=== PATIENT | female | born 1960 | race Hispanic/Latino ===

== ENCOUNTER 2017-07-21 20:35 | Emergency (ER) | payer SELFPAY ==
[2017-07-21] MEDS ORDERED: Morphine 2 MG/ML SYRINGE ONE (21:29)
--- NOTE | 2017-07-21 21:46 | RAD ---
THREE VIEWS RIGHT WRIST: History: Fall with right wrist pain. FINDINGS: AP, lateral, and oblique views demonstrate an area of radiolucency involving the distal right radius . This is compatible with a Collie's type fracture. No significant angulation is seen. There also ap pears to be an ulnar styloid fracture. IMPRESSION: Distal right radial and ulnar fractures. POS: [facility]
== END 2017-07-21 22:50 | disposition home or self-care (01) ==
LOC: ERS 20:35
DX: S52.531A Colles' fracture of right radius, initial encounter for closed fracture (principal); S52.601A Unspecified fracture of lower end of right ulna, initial encounter for closed fracture; E11.9 Type 2 diabetes mellitus without complications; I10 Essential (primary) hypertension; F41.9 Anxiety disorder, unspecified; F32.9 Major depressive disorder, single episode, unspecified; Z79.4 Long term (current) use of insulin; Z79.899 Other long term (current) drug therapy; W01.0XXA Fall on same level from slipping, tripping and stumbling without subsequent striking against object, initial encounter
CPT/HCPCS: 96372; J2270

== ENCOUNTER 2017-09-17 08:44 | Inpatient (IN) | payer SELFPAY ==
[2017-09-17 09:24] LABS: #Eosinphils 0.1 thou/uL (0.0-0.7); #Lymphocytes 1.5 thou/uL (1.20-3.40); #Monocytes 1.2 thou/uL (0.11-0.59); #Neutrophils 15.2 thou/uL (1.40-6.50); %Basophils 0.3 % (0.0-1.0); %Eosinophils 0.5 % (0.0-10.0); %Lymphocytes 8.2 % (21.0-51.0); %Monocytes 6.8 % (0.0-10.0); Hematocrit 38.5 % (36.0-47.0); Red Blood Cell (RBC) Count 4.11 mill/uL (4.20-5.40); White Blood Cell (WBC) Count 18.1 thou/uL (4.8-10.8)
[2017-09-17 09:38] LABS: ALT (SGPT) 8 U/L (8-55); AST (SGOT) 10 U/L (5-34); Alkaline Phosphatase 150 U/L (40-150); Anion Gap 20 mmol/L (10-20); BUN (Urea Nitrogen) 24 mg/dL (9.8-20.1); Band 15 % (5-11); Bilirubin, Total 0.6 mg/dL (0.2-1.2); Calc. Creatinine Clearance 0 mL/min (70-130); Calcium 9.1 mg/dL (7.8-10.44); Carbon Dioxide 17 mmol/L (22-29); Chloride 98 mmol/L (98-107); Estimated GFR-MDRD 68; Globulin 3.7 g/dL (2.4-3.5); Lipase Less than 4 U/L (8-78); Magnesium 2.5 mg/dL (1.6-2.6); Phosphorus 2.9 mg/dL (2.3-4.7); Reactive Lymphocytes 1 % (0-10)
[2017-09-17] MEDS ORDERED: Ondansetron HCl/PF 4 MG/2 ML Vial ONE ×2 (09:42→13:00)
[2017-09-17 10:02] LABS: Troponin I Less than 0.010 ng/mL (< 0.028)
[2017-09-17] MEDS ORDERED: Ketorolac Tromethamine 30 MG/ML VIAL ONE (11:35)
[2017-09-17 11:48] LABS: Bilirubin Small (Negative); Blood, Urine Large (Negative); Glucose, Urine (Dipstick) >=1000 mg/dL (Negative); Ketone, Urine 80 mg/dL (Negative); Nitrite Positive (Negative); Protein, Urine (Dipstick) 100 mg/dL (Neg-Trace)
[2017-09-17 11:50] LABS: Bacteria/HPF 4+ HPF (None Seen); Hyaline Casts/LPF 0-3 HYALINE CAST LPF (0-3 Hyaline); RBC/HPF 21-50 HPF (0-3); Squamous Epithelial 0-3 HPF (0-3)
[2017-09-17 12:28] LABS: Anion Gap 6 mmol/L (-14-95); T. Carbon Dioxide 19.1 mmol/L (1.0-85.0); pH (Venous) 7.363 (7.35-7.45); vO2 Saturation-calc 85.3 % (0.0-100.0)
[2017-09-17] MEDS ORDERED: Insulin Regular 300 UNITS/3 ML VIAL ONE (12:30)
[2017-09-17] MEDS ORDERED: cefTRIAXone\\ROCEPHIN 2 GM in Sodium Chloride 0.9% 100 ML IVPB SCH (13:45)
--- NOTE | 2017-09-17 13:46 | ULT ---
RENAL ULTRASOUND: History: Abdominal pain. FINDINGS: Right kidney measures 10.1 cm length. No evidence of hydronephrosis or mass. Left kidney measures 13 cm length. No evidence of hydronephrosis or mass. The bladder is mildly distended and appears unremarkable. IMPRESSION: Unremarkable renal ultrasound. POS: [facility]
[2017-09-17] MEDS ORDERED: Calcium Carbonate 500 MG ChewTAB PO PRN (13:53)
[2017-09-17] MEDS ORDERED: Dextrose 5% in Water 1,000 ML IV PRN (13:53)
[2017-09-17] MEDS ORDERED: Dextrose 50% Abboject 50 ML SYRINGE SLOW IVP PRN (13:53)
[2017-09-17] MEDS ORDERED: Acetaminophen 325 MG TAB PO PRN (13:53)
[2017-09-17] MEDS: Sodium Chloride 0.9% 1,000 ML IV SCH (14:47)
[2017-09-17 14:49] LABS: Lactic Acid - Sepsis 1.6 mmol/L (0.5-2.2)
[2017-09-17 14:53] VITALS: BMI 26.5
[2017-09-17] MEDS: Metoclopramide HCl 10 MG TAB PO PRN (15:08)
[2017-09-17] MEDS: HumaLOG 300 UNITS/3 ML VIAL SC PRN (16:35)
--- NOTE | 2017-09-17 16:49 | HP ---
CHIEF COMPLAINT: Chills, abdominal pain, nausea and vomiting. HISTORY OF PRESENT ILLNESS: This is a 57-year-old pleasant lady who was apparently in her usual stat e of health until the last couple of days when she started developing chills, abdominal pain, nausea and vomiting. The patient has been admitted in the past with similar problems where she was diagnose d with urinary tract infection and since 12/2015, has being self-cathing her to void completely. She says otherwise, if she does not catheter, she has urinary retention. She has been doing that since 12/2015. This is the first time she has had a urinary tract infection. She has seen an urologist on the outside, but she is not clear as to what was the recommendation given by the urologist. She adm its to some subjective fever, chills, abdominal pain, nausea and vomiting and hence she came into the hospital for further evaluation and treatment. She says that her sugars have been running high as w ell. PAST MEDICAL HISTORY: Significant for fibromyalgia, diabetes, hypertension, L4-L5 fusion, anxiety, d epression and urinary retention, which she needs self-cathing. PAST SURGICAL HISTORY: Significant for lumbar fusion in 2007, cholecystectomy, hysterectomy and blad kristyn surgery in 01/12, she does not know the nature of it. ALLERGIES: SULFA. SOCIAL HISTORY: Does not smoke, drink or do recreational drugs. FAMILY HISTORY: Negative for diabetes, hypertension. MEDICATIONS: Include Levemir, Zanaflex, Humalog and gabapentin. Please look at the med rec for furt her details. REVIEW OF SYSTEMS: Significant for abdominal pain, nausea, vomiting, fever and chills. Otherwise, n o headache, no eye pain, no hearing loss or latencies. No cough, no chest pain or diarrhea. Positiv e for dysuria. No polyuria. No memory or mood changes. No neck pain. PHYSICAL EXAMINATION: VITAL SIGNS: The patient's blood pressure is 161/82, pulse is 92, breathing is 99, satting 99% on ro om air and respiratory rate is 17. GENERAL: The patient is lying in bed in mild distress because of the pain. HEENT: Atraumatic and normocephalic. Pupils are equal, round and reactive to light. Extraocular mo vements intact. Mucous membranes are moist. NECK: Supple. No JVD. CHEST: Breath sounds heard. No rales or rhonchi. HEART: S1 and S2. No murmurs or gallops. ABDOMEN: Soft. Tenderness over the suprapubic area. Bowel sounds are present. NEUROLOGICAL: Alert, awake and oriented. No cranial deficits. No sensorimotor deficits. PSYCHIATRIC: Mood is intact. LABORATORY DATA: WBC count is 18 and hemoglobin is 12. Potassium is 3.8, creatinine is 0.8, magnesi um is 2.5 and phosphorus is 2.9. UA is positive, nitrite positive, wbc's 7-10. ASSESSMENT AND PLAN: 1. Sepsis secondary to urinary tract infection. We will get renal ultrasound and IV antibiotics. W e will get Dr. Alex to make recommendations as the patient's urinary tract infection is recurrent. We will also get Urology to make their recommendations. 2. Diabetes with uncontrolled sugars with mild diabetic ketoacidosis. We will aggressively hydrate the patient and continue long-acting insulin and bolus and sliding scale insulin. 3. Hyponatremia. IV hydration. 4. Hypertension. We will continue home medications and p.r.n. hydralazine. 5. Fibromyalgia, stable. 6. Sequential compression devices for deep venous thrombosis prophylaxis. 7. I will work with the consultants further caring for the patient.
[2017-09-17 16:51] LABS: Troponin I Less than 0.010 ng/mL (< 0.028)
[2017-09-17] MEDS: Ondansetron HCl/PF 4 MG/2 ML Vial IVP PRN (18:30)
[2017-09-17] MEDS: HYDROcodone/Acetaminophen 5/325 mg Tablet PO PRN (19:44)
[2017-09-17] MEDS: busPIRone HCl 5 MG TAB PO SCH (21:11)
[2017-09-17] MEDS: Docusate 100 MG CAP PO SCH (21:11)
[2017-09-17] MEDS: Famotidine 20 MG TAB PO SCH (21:12)
[2017-09-17] MEDS: Insulin Detemir 100 UNITS/ML 25 UNITS in Admixture Fee 1 EACH SC SCH (21:13)
[2017-09-17] MEDS ORDERED: Morphine 4 MG/ML VIAL SLOW IVP SCH (22:45)
[2017-09-18] MEDS: Ondansetron HCl/PF 4 MG/2 ML Vial IVP PRN ×3 (00:31→14:56)
[2017-09-18] MEDS: Phenazopyridine HCl 97.5 MG TABLET PO SCH ×2 (01:14→18:05)
[2017-09-18] MEDS: HYDROcodone/Acetaminophen 5/325 mg Tablet PO PRN ×5 (02:30→23:54)
[2017-09-18] MEDS: Sodium Chloride 0.9% 1,000 ML IV SCH ×2 (02:37→09:59)
[2017-09-18 04:37] LABS: Anion Gap 12 mmol/L (10-20); BUN (Urea Nitrogen) 16 mg/dL (9.8-20.1); BUN/Creatinine Ratio 24.62; Calc. Creatinine Clearance 98 mL/min (70-130); Carbon Dioxide 21 mmol/L (22-29); Chloride 107 mmol/L (98-107); Estimated GFR-MDRD Greater than 90
[2017-09-18] MEDS: Amlodipine 10 MG TAB PO SCH (07:52)
[2017-09-18] MEDS: Docusate 100 MG CAP PO SCH ×3 (07:53→21:04)
[2017-09-18] MEDS: Famotidine 20 MG TAB PO SCH ×2 (07:53→21:04)
[2017-09-18] MEDS: busPIRone HCl 5 MG TAB PO SCH ×2 (07:53→21:04)
[2017-09-18] MEDS: Aspirin 81 mg Enteric Coated Tablet PO SCH (07:53)
[2017-09-18 09:19] LABS: #Eosinphils 0.2 thou/uL (0.0-0.7); #Lymphocytes 1.7 thou/uL (1.20-3.40); #Monocytes 1.3 thou/uL (0.11-0.59); %Eosinophils 1.3 % (0.0-10.0); %Lymphocytes 11.2 % (21.0-51.0); %Monocytes 8.5 % (0.0-10.0); Hematocrit 31.1 % (36.0-47.0); Mean Platelet Volume 6.9 fL (7.4-10.4); Red Blood Cell (RBC) Count 3.43 mill/uL (4.20-5.40); White Blood Cell (WBC) Count 15.2 thou/uL (4.8-10.8)
[2017-09-18] MEDS: Insulin Detemir 100 UNITS/ML 25 UNITS in Admixture Fee 1 EACH SC SCH ×2 (09:54→22:35)
[2017-09-18] MEDS: HumaLOG 300 UNITS/3 ML VIAL SC PRN (12:12)
[2017-09-18] MEDS: Metoclopramide HCl 10 MG TAB PO PRN (13:00)
[2017-09-18] MEDS ORDERED: cefTRIAXone\\ROCEPHIN 2 GM in Sodium Chloride 0.9% 100 ML IVPB SCH (14:00)
--- NOTE | 2017-09-18 14:11 | PDOC.PN ---
- Subjective Encounter Start Date: 09/18/17 Encounter Start Time: 14:10 Patient seen and examined. No new complaints. No overnight events - Objective MAR Reviewed: Yes Vital Signs & Weight: Vital Signs (12 hours) Temp Pulse Resp BP Pulse Ox 09/18/17 13:19 98.5 F 85 16 137/66 93 L 09/18/17 12:00 98.5 F 85 16 137/66 93 L 09/18/17 08:00 98.9 F 87 16 173/74 H 95 09/18/17 07:52 86 09/18/17 04:00 98.4 F 86 20 167/72 H 93 L Weight Admit Weight 145 lb Weight 145 lb I&O: 09/17/17 09/18/17 09/19/17 06:59 06:59 06:59 Intake Total 2340 Balance 2340 Result Diagrams: 09/18/17 07:01 09/18/17 04:05 Additional Labs: Accuchecks 09/18/17 09/18/17 09/17/17 12:02 05:18 20:00 POC Glucose 370 H 181 H 257 H 09/17/17 16:31 POC Glucose 270 H Phys Exam - Physical Examination Constitutional: NAD HEENT: PERRLA Neck: no JVD Respiratory: no wheezing Cardiovascular: no significant murmur Gastrointestinal: non-tender Musculoskeletal: pulses present Neurological: moves all 4 limbs Psychiatric: A&O x 3 Dx/Plan (1) Sepsis Code(s): A41.9 - SEPSIS, UNSPECIFIED ORGANISM Status: Acute (2) UTI (urinary tract infection) Status: Acute (3) Urinary retention Code(s): R33.9 - RETENTION OF URINE, UNSPECIFIED Status: Acute (4) Chronic back pain Code(s): M54.9 - DORSALGIA, UNSPECIFIED; G89.29 - OTHER CHRONIC PAIN Status: Chronic (5) Diabetes type 2, controlled Code(s): E11.9 - TYPE 2 DIABETES MELLITUS WITHOUT COMPLICATIONS Status: Chronic (6) Hypertension Code(s): I10 - ESSENTIAL (PRIMARY) HYPERTENSION Status: Chronic - Plan * f/u culture * cont abx * f/u urology and id plan
--- NOTE | 2017-09-18 14:24 | CON ---
DATE OF CONSULTATION: 09/18/2017 REASON FOR CONSULTATION: Urinary tract infection with bacteremia. HISTORY OF PRESENT ILLNESS: This is a 57-year-old with a history of type 2 diabetes, recurrent UTIs, chronic back pain, who I had seen in 05/2014. At that time, she presented with pyelonephritis and bacteremia. After that, 2 years later, she had a cystoscopy and there was evidence of urinary retention, and she was advised to do in and out catheterizations by Dr. Montenegro. She has been doing them 4-5 times a day, usually gets anywhere from 400-500 mL after voiding. This time, she presents with a 2 weeks' history of progressively worsening dysuria, general malaise, vomiting. Patient went to [facility] and was told to be admitted, but she did not go to the hospital and now finally had to come to the hospital and is currently admitted for management of the invasive urinary tract infection. No headaches. No respiratory symptoms. No back pain. No joint symptoms or skin disorder. PAST MEDICAL HISTORY: Fibromyalgia; diabetes, type 2; hypertension; L4-5 fusion ; neurogenic bladder with retention and need for self-catheterization; recurrent episodes of invasive urinary tract infection, sometimes with bacteremia; had a cystoscopy. PAST SURGICAL HISTORY: Lumbar fusion, cholecystectomy, hysterectomy. ALLERGIES: SULFA DRUGS WITH RASH. SOCIAL HISTORY: Never smoker. FAMILY HISTORY: Noncontributory. CURRENT MEDICATIONS: Hydrocodone, Norvasc, aspirin, Tums, ceftriaxone, famotidine, levofloxacin, and ondansetron. PHYSICAL EXAMINATION: VITAL SIGNS: T-max 98.9, blood pressure 130/60, pulse 85, respirations 16, O2 sat 93%-95%. GENERAL: Appears in no distress. SKIN EXAM: Normal. Does not have a Pulido catheter. Peripheral IV access. HEENT: Ocular movements are conjugate. Oral cavity moist. NECK: Supple. LUNGS: With symmetric clear breath sounds. HEART: S1, S2, regular rate and rhythm without murmurs. No S3 or S4. ABDOMEN: Soft. Not distended. There is evidence of bladder distention and some tenderness. EXTREMITIES: No joint inflammatory activity. NEUROLOGIC: Nonfocal neuro examination. LABORATORY DATA: Urinalysis with 7-10 WBCs. White cell count 18,000, now is 15 ,000; hemoglobin 12 and 10; platelets 249; with 84 and now 79% neutrophils. Creatinine 0.65. Sodium 136. Microbiology with Klebsiella pneumonia in one set of blood cultures, pending susceptibilities. Urine culture with gram- negative janay yet to be fully identified and susceptibility tested. C. diff antigen and toxin negative. The patient had a kidney ultrasound, which did not show any significant abnormalities. ASSESSMENT: 1. Type 2 diabetes with neurogenic bladder and urinary retention. 2. Recurrent episodes of urinary tract infection with sometimes bacteremia secondary to the above feature. 3. Klebsiella pneumonia, urinary tract infection with invasive features. DISCUSSION: We will have to wait for the final susceptibility results to recommend the treatment. Hopefully, we will be able to continue Levaquin oral. The main issue here is the neurogenic bladder. Need to review the technique and the frequency of catheterization. One would like to have less than 500 mL output in each catheterization. The current post void volumes tell me that she is not catheterizing herself frequently enough. There is no other mechanical factor that is contributing to this problem. A long-term suppressive antimicrobial therapy would necessarily result in replacement of the colonizing organism by a resistant pathogen, and I would not recommend that strategy. Placement of a suprapubic catheter would be too radical of an approach and I think she would not be ready for that at this point in time and an indwelling Pulido catheter would also be associated with the infection risk. MARIEL
[2017-09-18] MEDS: cefTRIAXone\\ROCEPHIN 2 GM in Sodium Chloride 0.9% 100 ML IVPB SCH (14:46)
[2017-09-18] MEDS: Morphine 4 MG/ML VIAL SLOW IVP PRN ×2 (14:55→21:00)
[2017-09-18] MEDS ORDERED: Ondansetron HCl/PF 4 MG/2 ML Vial IVP PRN (17:13)
[2017-09-19] MEDS: Morphine 4 MG/ML VIAL SLOW IVP PRN ×4 (01:07→19:34)
[2017-09-19] MEDS: Sodium Chloride 0.9% 1,000 ML IV SCH (01:10)
[2017-09-19 05:07] LABS: #Basophils 0.2 thou/uL (0.0-0.2); #Eosinphils 0.2 thou/uL (0.0-0.7); #Lymphocytes 2.3 thou/uL (1.20-3.40); #Monocytes 1.2 thou/uL (0.11-0.59); #Neutrophils 8.7 thou/uL (1.40-6.50); %Basophils 1.6 % (0.0-1.0); %Eosinophils 1.5 % (0.0-10.0); %Lymphocytes 18.5 % (21.0-51.0); %Monocytes 9.3 % (0.0-10.0); Hematocrit 35.2 % (36.0-47.0); Mean Platelet Volume 7.8 fL (7.4-10.4); Red Blood Cell (RBC) Count 3.83 mill/uL (4.20-5.40); White Blood Cell (WBC) Count 12.6 thou/uL (4.8-10.8)
[2017-09-19] MEDS ORDERED: Sterile Water 10 ML ONE (05:49)
[2017-09-19 06:37] LABS: Calcium 8.6 mg/dL (7.8-10.44); Chloride 112 mmol/L (98-107)
[2017-09-19 06:40] LABS: Anion Gap 10 mmol/L (10-20); Carbon Dioxide 22 mmol/L (22-29)
[2017-09-19 06:42] LABS: Calc. Creatinine Clearance 110 mL/min (70-130); Estimated GFR-MDRD Greater than 90
[2017-09-19 06:43] LABS: BUN (Urea Nitrogen) 8 mg/dL (9.8-20.1); BUN/Creatinine Ratio 13.79
[2017-09-19 06:46] LABS: Phosphorus 3.2 mg/dL (2.3-4.7)
[2017-09-19] MEDS: Phenazopyridine HCl 97.5 MG TABLET PO PRN (09:28)
[2017-09-19] MEDS: Aspirin 81 mg Enteric Coated Tablet PO SCH (09:28)
[2017-09-19] MEDS: Metoclopramide HCl 10 MG TAB PO PRN (09:28)
[2017-09-19] MEDS: Famotidine 20 MG TAB PO SCH ×2 (09:28→19:37)
[2017-09-19] MEDS: Amlodipine 10 MG TAB PO SCH (09:28)
[2017-09-19] MEDS: busPIRone HCl 5 MG TAB PO SCH ×2 (09:28→19:37)
[2017-09-19] MEDS: Docusate 100 MG CAP PO SCH ×2 (09:29→19:41)
[2017-09-19] MEDS: HYDROcodone/Acetaminophen 5/325 mg Tablet PO PRN ×3 (09:29→22:02)
[2017-09-19] MEDS ORDERED: Potassium Chloride 20 MEQ TAB PO SCH (11:45)
[2017-09-19] MEDS: Insulin Detemir 100 UNITS/ML 25 UNITS in Admixture Fee 1 EACH SC SCH (12:08)
[2017-09-19 12:16] LABS: Lipase Less than 4 U/L (8-78); Magnesium 2.1 mg/dL (1.6-2.6)
[2017-09-19] MEDS: cefTRIAXone\\ROCEPHIN 2 GM in Sodium Chloride 0.9% 100 ML IVPB SCH (13:04)
--- NOTE | 2017-09-19 13:52 | PDOC.PN ---
- Subjective Encounter Start Date: 09/19/17 Encounter Start Time: 13:50 c/o abd pain n/v resolved has bm no f/c - Objective MAR Reviewed: Yes Vital Signs & Weight: Vital Signs (12 hours) Temp Pulse Resp BP Pulse Ox 09/19/17 11:24 97.9 F 84 14 124/58 L 95 09/19/17 09:28 83 09/19/17 08:14 97.4 F L 83 16 161/74 H 97 09/19/17 08:00 97.4 F L 83 16 97 Weight Admit Weight 145 lb Weight 145 lb I&O: 09/18/17 09/19/17 09/20/17 06:59 06:59 06:59 Intake Total 0 1969 Balance 2339 1969 Result Diagrams: 09/19/17 04:02 09/19/17 05:53 Additional Labs: Accuchecks 09/19/17 09/19/17 09/19/17 11:12 09:01 07:05 POC Glucose 175 H 108 272 H 09/19/17 09/18/17 09/18/17 05:45 22:26 21:09 POC Glucose 46 L* 101 65 L 09/18/17 16:27 POC Glucose 106 Phys Exam - Physical Examination Constitutional: NAD HEENT: PERRLA Neck: no JVD Respiratory: no wheezing Cardiovascular: RRR Gastrointestinal: soft epigastric tenderness Musculoskeletal: pulses present Neurological: moves all 4 limbs Psychiatric: A&O x 3 Dx/Plan (1) Sepsis Code(s): A41.9 - SEPSIS, UNSPECIFIED ORGANISM Status: Acute Comment: ecoli (2) UTI (urinary tract infection) Status: Acute (3) Urinary retention Code(s): R33.9 - RETENTION OF URINE, UNSPECIFIED Status: Acute (4) Chronic back pain Code(s): M54.9 - DORSALGIA, UNSPECIFIED; G89.29 - OTHER CHRONIC PAIN Status: Chronic (5) Diabetes type 2, controlled Code(s): E11.9 - TYPE 2 DIABETES MELLITUS WITHOUT COMPLICATIONS Status: Chronic (6) Hypertension Code(s): I10 - ESSENTIAL (PRIMARY) HYPERTENSION Status: Chronic - Plan * consult gi and f/u abd us to eval abd pain * e/o hypoglycemia- change levemir to 20 bid, encourage po intake * replace k * ambulate
--- NOTE | 2017-09-19 16:18 | CON ---
DATE OF CONSULTATION: 09/19/2017 REFERRING PHYSICIAN: [facility] Garner[facility] REASON FOR CONSULTATION: Abdominal pain, nausea. HISTORY OF PRESENT ILLNESS: Ms. Tomi Sal is a very pleasant 57-year-old femal e with history of hypertension, insulin-dependent diabetes mellitus. The patient also has a history of back pain surgery [place] [address] Bales. The patient also has a history of neurogenic bladder. The patient was hospitalized because of history of fever and chills, abdominal pain, nausea, and vom iting. Apparently, she has had some urinary infection with dysuria, frequent urination. She was see n by Dr. Oliver in the [facility] a week or 10 days ago. He actually advised to get admitted, but the patient does not want to get admitted. Apparently, she was placed on some p.o. antibiotics. How ever, because of persistent symptoms, she came to the ER and was hospitalized two days ago. At the p resent time, she is actually feeling better. She is not vomiting anymore, but she has some nausea of f and on. She complains of periumbilical abdominal pain and epigastric abdominal pain. This has bee n going on for 2-1/2 weeks. The patient has had similar episodes of nausea and vomiting off and on o isaías the past. The patient at the present appears comfortable except for the pain, which is periumbil ical and epigastric area. There is no prior history of peptic ulcer. She has had no vomiting, but s he still has nausea off and on. She has been given morphine for pain relief. Her serum lipase is no rmal. The patient has had previous cholecystectomy for biliary dyskinesia. She does have gallstones before. She has no other relevant symptoms. ALLERGIES: SULFA. SOCIAL HISTORY: The patient does not smoke or drink alcohol. No drug abuse. MEDICAL ILLNESSES: 1. Diabetes mellitus. 2. Hypertension. 3. L4-L5 fusion in 2002. 4. Anemia. 5. Depression. 6. Urinary retention. SURGERIES: 1. Status post cholecystectomy and no gallstones at that time. 2. Status post hysterectomy. 3. Status post L4-L5 spinal fusion. MEDICATIONS: List is reviewed, Levemir, Zanaflex, Humalog, and gabapentin. FAMILY HISTORY: Strong family history of diabetes mellitus. Father had multiple myeloma. REVIEW OF SYSTEMS: System review is remarkable for abdominal pain, nausea, and vomiting, fever and c hills, and also dysuria, frequent urination. She also has a history of back pain off and on. PHYSICAL EXAMINATION: GENERAL: Revealed a very pleasant female, who appears very comfortable. She is in no acute distress. She is awake, alert, oriented to time, place and person. VITAL SIGNS: She is afebrile, pulse is 84, blood pressure 124/58. HEENT: Conjunctivae clear. NECK: Supple. No adenitis or thyromegaly noted. CARDIOVASCULAR: First and second heart sounds normal. LUNGS: Clear to auscultation. ABDOMEN: Soft. Nondistended. Abdomen is tender over the periumbilical area, epigastric area. Ther e is no rebound or guarding. No organomegaly or masses. Bowel sounds are normal. EXTREMITIES: Reveal no edema. LABORATORY DATA: From today, WBC coming down to 12,600 from 18,000, hemoglobin 11.1, hematocrit 34.2 , MCV 91.9, platelet count 257,000, polymorphs 69, lymphocytes 18. Serum chemistries show sodium 141 , potassium 3.1, chloride 112, bicarbonate 22, BUN is 8, creatinine 0.58, glucose 175, albumin 2.8. Her liver function tests are actually normal, ALT is 8, AST 10, alkaline phosphatase 150, lipase less than 4. CLINICAL IMPRESSION: A 57-year-old male with urinary tract infection with fever and c hills and dysuria. She has had nausea, vomiting, and abdominal pain. She is tender over the epigast patrick area. Her lipase is normal. There are several possibilities for abdominal pain, which could be simply muscle straining from recurrent nausea and vomiting. Other possibilities could be gastropares is, which seems likely. She could also have peptic ulcer. PLAN: 1. Continue pantoprazole: 2. Plan for EGD tomorrow and I will make further recommendations.
[2017-09-19] MEDS: Insulin Detemir 100 UNITS/ML 20 UNITS in Pre-Filled Syringe 1 EACH SC SCH (19:41)
--- NOTE | 2017-09-19 20:38 | ULT ---
ULTRASOUND ABDOMEN COMPLETE 09/19/17 COMPARISON: 06/18/14. HISTORY: Epigastric pain. TECHNIQUE: Clark-scale ultrasound evaluation of the liver, gallbladder, spleen, pancreas, common bile duct, kidne ys, abdominal aorta, and inferior vena cava (IVC). FINDINGS: No focal hepatic lesion. Gallbladder is surgically absent. The imaged common duct is normal for statu s post cholecystectomy at 6 mm. No acute pathology of the kidneys or spleen. No ascites. The pancreas is not reliably assessed due to obscuration by bowel content. There is decreased acoustic penetratio n of the hepatic parenchyma which does decrease sensitivity of the evaluation. IMPRESSION: 1. Status post cholecystectomy. 2. Limited acoustic penetration of the abdomen decreasing sensitivity of evaluation. Otherwise, no definitive acute process identified. POS: [facility]
[2017-09-20] MEDS: Morphine 4 MG/ML VIAL SLOW IVP PRN ×3 (03:07→18:33)
[2017-09-20 05:43] LABS: Anion Gap 11 mmol/L (10-20); BUN (Urea Nitrogen) 6 mg/dL (9.8-20.1); Calc. Creatinine Clearance 106 mL/min (70-130); Calcium 8.5 mg/dL (7.8-10.44); Carbon Dioxide 22 mmol/L (22-29); Chloride 111 mmol/L (98-107); Estimated GFR-MDRD Greater than 90; Phosphorus 2.6 mg/dL (2.3-4.7)
[2017-09-20 06:33] LABS: Band 4 % (5-11); Hematocrit 32.3 % (36.0-47.0); Mean Platelet Volume 6.9 fL (7.4-10.4); Neutrophil 80 % (42-75); Red Blood Cell (RBC) Count 3.52 mill/uL (4.20-5.40); White Blood Cell (WBC) Count 11.4 thou/uL (4.8-10.8)
[2017-09-20] MEDS: HYDROcodone/Acetaminophen 5/325 mg Tablet PO PRN ×3 (08:16→21:08)
[2017-09-20] MEDS ORDERED: Propofol 200 MG/20 ML VIAL ONE (09:35)
--- NOTE | 2017-09-20 11:54 | OP ---
DATE OF PROCEDURE: 09/20/2017 OPERATIVE PROCEDURE: Esophagogastroduodenoscopy biopsy. PREOPERATIVE DIAGNOSES: Abdominal pain, nausea, and vomiting. POSTOPERATIVE DIAGNOSIS: Normal exam. She did have some retained food material in the stomach. PROCEDURE IN DETAIL: The patient was placed on her left lateral position and was given sedation by A nesthesia Department. A [employer]ax video gastroscope under direct vision was passed down the oropharynx, past the gastroesophageal junction, into the stomach and subsequently descending duodenum. The esop hageal mucosa appeared normal. No esophagitis seen. The GE junction, no pathology seen. Retroflexi on failed to show any lesions in the fundus or cardia. The gastric body and gastric antrum, no patho logy seen. The patient did have some retained food material after overnight fasting. The duodenal b ulb and descending duodenum, no pathology seen. The stomach was decompressed and the scope was remov ed. OVERALL IMPRESSION: Although, she has abdominal pain, the pain may be musculoskeletal as the esophag ogastroduodenoscopy was basically negative.
--- NOTE | 2017-09-20 12:49 | PDOC.PN ---
- Subjective Encounter Start Date: 09/20/17 Encounter Start Time: 12:47 Patient seen and examined. No new complaints. No overnight events for egd today - Objective MAR Reviewed: Yes Vital Signs & Weight: Vital Signs (12 hours) Temp Pulse Resp BP Pulse Ox 09/20/17 08:20 98.4 F 91 18 178/77 H 95 09/20/17 04:00 98.0 F 84 16 148/64 H 98 Weight Admit Weight 145 lb Weight 145 lb I&O: 09/19/17 09/20/17 09/21/17 06:59 06:59 06:59 Intake Total 1970 750 Output Total 650 Balance 1969 100 Result Diagrams: 09/20/17 04:42 09/20/17 04:42 Additional Labs: Accuchecks 09/20/17 09/20/17 09/19/17 12:13 05:47 20:31 POC Glucose 150 H 135 H 79 09/19/17 16:02 POC Glucose 131 H Phys Exam - Physical Examination Constitutional: NAD HEENT: PERRLA Neck: no JVD Respiratory: no wheezing Cardiovascular: RRR mild epigastric tenderness Neurological: moves all 4 limbs Psychiatric: A&O x 3 Dx/Plan (1) Sepsis Code(s): A41.9 - SEPSIS, UNSPECIFIED ORGANISM Status: Acute Comment: ecoli (2) UTI (urinary tract infection) Status: Acute (3) Urinary retention Code(s): R33.9 - RETENTION OF URINE, UNSPECIFIED Status: Acute (4) Chronic back pain Code(s): M54.9 - DORSALGIA, UNSPECIFIED; G89.29 - OTHER CHRONIC PAIN Status: Chronic (5) Diabetes type 2, controlled Code(s): E11.9 - TYPE 2 DIABETES MELLITUS WITHOUT COMPLICATIONS Status: Chronic (6) Hypertension Code(s): I10 - ESSENTIAL (PRIMARY) HYPERTENSION Status: Chronic (7) Abdominal pain Code(s): R10.9 - UNSPECIFIED ABDOMINAL PAIN Status: Acute - Plan * f/u egd * f/u gi plan * cont abx
[2017-09-20 13:34] LABS: Anion Gap 14 mmol/L (10-20); BUN (Urea Nitrogen) 5 mg/dL (9.8-20.1); Calc. Creatinine Clearance 106 mL/min (70-130); Calcium 8.5 mg/dL (7.8-10.44); Carbon Dioxide 20 mmol/L (22-29); Chloride 110 mmol/L (98-107); Estimated GFR-MDRD Greater than 90
[2017-09-20] MEDS: Amlodipine 10 MG TAB PO SCH (14:03)
[2017-09-20] MEDS: cefTRIAXone\\ROCEPHIN 2 GM in Sodium Chloride 0.9% 100 ML IVPB SCH (14:03)
[2017-09-20] MEDS: busPIRone HCl 5 MG TAB PO SCH ×2 (14:04→21:07)
[2017-09-20] MEDS: Famotidine 20 MG TAB PO SCH ×2 (14:04→21:09)
[2017-09-20] MEDS: Aspirin 81 mg Enteric Coated Tablet PO SCH (14:05)
[2017-09-20] MEDS: Docusate 100 MG CAP PO SCH ×2 (14:05→20:59)
[2017-09-20] MEDS: Insulin Detemir 100 UNITS/ML 20 UNITS in Pre-Filled Syringe 1 EACH SC SCH ×2 (14:09→20:59)
[2017-09-20] MEDS ORDERED: hydrALAZINE 20 MG/ML VIAL SLOW IVP PRN (15:09)
[2017-09-20] MEDS: Cholestyramine/Aspartame 4 gm Packet PO SCH (18:34)
[2017-09-20] MEDS: Phenazopyridine HCl 97.5 MG TABLET PO PRN (21:10)
[2017-09-21] MEDS: Cholestyramine/Aspartame 4 gm Packet PO SCH ×3 (00:22→11:54)
[2017-09-21] MEDS: Morphine 4 MG/ML VIAL SLOW IVP PRN (02:20)
[2017-09-21] MEDS: HYDROcodone/Acetaminophen 5/325 mg Tablet PO PRN (05:50)
[2017-09-21 06:03] LABS: #Eosinphils 0.2 thou/uL (0.0-0.7); #Lymphocytes 2.2 thou/uL (1.20-3.40); #Monocytes 0.8 thou/uL (0.11-0.59); #Neutrophils 6.8 thou/uL (1.40-6.50); %Basophils 0.3 % (0.0-1.0); %Eosinophils 1.5 % (0.0-10.0); %Lymphocytes 21.7 % (21.0-51.0); %Monocytes 7.9 % (0.0-10.0); Mean Platelet Volume 6.7 fL (7.4-10.4); Red Blood Cell (RBC) Count 3.39 mill/uL (4.20-5.40); White Blood Cell (WBC) Count 9.9 thou/uL (4.8-10.8)
[2017-09-21] MEDS: Amlodipine 10 MG TAB PO SCH (08:09)
[2017-09-21] MEDS: Famotidine 20 MG TAB PO SCH (08:09)
[2017-09-21] MEDS: Aspirin 81 mg Enteric Coated Tablet PO SCH (08:10)
[2017-09-21] MEDS: Docusate 100 MG CAP PO SCH (08:10)
[2017-09-21] MEDS: busPIRone HCl 5 MG TAB PO SCH (08:10)
[2017-09-21] MEDS: Phenazopyridine HCl 97.5 MG TABLET PO PRN (08:12)
[2017-09-21] MEDS: Metoclopramide HCl 10 MG TAB PO PRN (08:18)
[2017-09-21 08:24] VITALS: TEMP 99.4
[2017-09-21] MEDS: Insulin Detemir 100 UNITS/ML 20 UNITS in Pre-Filled Syringe 1 EACH SC SCH (09:38)
--- NOTE | 2017-09-21 10:48 | PDOC.PN ---
- Subjective Encounter Start Date: 09/21/17 Encounter Start Time: 10:47 Patient seen and examined. No new complaints. No overnight events - Objective MAR Reviewed: Yes Vital Signs & Weight: Vital Signs (12 hours) Temp Pulse Resp BP BP Pulse Ox 09/21/17 08:09 89 162/72 H 09/21/17 08:00 99.4 F 89 14 09/21/17 07:23 99.4 F 90 14 162/72 H 93 L Weight Admit Weight 145 lb Weight 145 lb I&O: 09/20/17 09/21/17 09/22/17 06:59 06:59 06:59 Intake Total 750 1100 Output Total 650 Balance 100 1100 Result Diagrams: 09/21/17 05:35 09/20/17 13:12 Additional Labs: Accuchecks 09/20/17 09/20/17 09/20/17 20:56 16:21 12:13 POC Glucose 210 H 192 H 150 H Phys Exam - Physical Examination Constitutional: NAD HEENT: PERRLA Neck: no JVD Respiratory: no wheezing Cardiovascular: no significant murmur Gastrointestinal: no distention Musculoskeletal: pulses present Neurological: normal sensation, moves all 4 limbs Psychiatric: A&O x 3 Dx/Plan (1) Sepsis Code(s): A41.9 - SEPSIS, UNSPECIFIED ORGANISM Status: Acute Comment: ecoli (2) UTI (urinary tract infection) Status: Acute (3) Urinary retention Code(s): R33.9 - RETENTION OF URINE, UNSPECIFIED Status: Acute (4) Chronic back pain Code(s): M54.9 - DORSALGIA, UNSPECIFIED; G89.29 - OTHER CHRONIC PAIN Status: Chronic (5) Diabetes type 2, controlled Code(s): E11.9 - TYPE 2 DIABETES MELLITUS WITHOUT COMPLICATIONS Status: Chronic (6) Hypertension Code(s): I10 - ESSENTIAL (PRIMARY) HYPERTENSION Status: Chronic (7) Abdominal pain Code(s): R10.9 - UNSPECIFIED ABDOMINAL PAIN Status: Acute - Plan * d/c home * f/u with christian jacobsen and pcp
[2017-09-21 11:48] VITALS: BP 172/79
--- NOTE | 2017-09-21 19:22 | DIS ---
DATE OF ADMISSION: 09/17/2017 DATE OF DISCHARGE: 09/21/2017 CHIEF COMPLAINT: Chills, abdominal pain, nausea, and vomiting. DISCHARGE DIAGNOSES: 1. Urinary tract infection secondary to Klebsiella, sensitive to Levaquin, stable. 2. Sepsis secondary to urinary tract infection, stable. 3. Diabetes with uncontrolled sugars, stable. 4. Episode of hypoglycemia, stable. 5. Diabetic gastroparesis giving rise to abdominal pain, nausea, vomiting, better. 6. Hyponatremia, stable. 7. Hypertension, stable. 8. Fibromyalgia, stable. 9. Neurogenic bladder. DISCHARGE MEDICATIONS: Include Reglan 10 mg p.o. t.i.d., continuation of all home medications, Levaq uin 750 p.o. daily for 8 days, and Zofran ODT 4 mg p.o. q.6 hours p.r.n. for nausea and vomiting. CONSULTANTS ON THE CASE: GI, Dr. Alex, and Urology. BRIEF HOSPITAL COURSE: A 57-year-old pleasant lady with a history of neurogenic bladder, who came in to the hospital with urinary tract infection. Please refer to the admitting physician's H&P for furt her details. She was put on Levaquin and Rocephin. Urine cultures grew Klebsiella. Dr. Alex optim ized the treatment as well. Klebsiella was sensitive to Levaquin and she improved from that standpoi nt. The patient had an episode of hypoglycemia because of poor oral intake and side effects of Levem ir. Levemir was stopped and she was put on sliding scale insulin and she has been educated to use th e sliding scale insulin at home until she starts eating better. She had nausea, vomiting, abdominal pain for which she was scoped and scope just showed some mild gastritis. The patient has a history o f diabetic gastroparesis and findings and presentations consistent with that. She has been put back on the Reglan and is going to be followed up by GI as an outpatient. For the blood pressure, we will put her on Cozaar. The patient is doing much better right now. She is advised to take only the sli ding scale insulin and increase long-acting insulin as needed. [facility] with PCP and GI and Dr. Montenegro for the neurogenic bladder.
== END 2017-09-21 12:24 | disposition home or self-care (01) | DRG 871 ==
LOC: ERS 08:44 → OBSVTOIN 13:09 → ONC 13:09
PROVIDERS: ADMIT Internal Medicine; ATTEND Internal Medicine
PROC: 0DJ08ZZ Inspection of Upper Intestinal Tract, Via Natural or Artificial Opening Endoscopic (ICD-10-PCS; principal; 2017-09-20)
DX: A41.89 Other specified sepsis (principal); E11.10 Type 2 diabetes mellitus with ketoacidosis without coma; K31.84 Gastroparesis; E87.1 Hypo-osmolality and hyponatremia; E11.43 Type 2 diabetes mellitus with diabetic autonomic (poly)neuropathy; N31.9 Neuromuscular dysfunction of bladder, unspecified; N39.0 Urinary tract infection, site not specified; R11.2 Nausea with vomiting, unspecified; M79.7 Fibromyalgia; I10 Essential (primary) hypertension; Z98.1 Arthrodesis status; F41.9 Anxiety disorder, unspecified; F32.9 Major depressive disorder, single episode, unspecified; R33.9 Retention of urine, unspecified; Z88.2 Allergy status to sulfonamides; Z79.4 Long term (current) use of insulin; B96.1 Klebsiella pneumoniae [K. pneumoniae] as the cause of diseases classified elsewhere; T38.3X5A Adverse effect of insulin and oral hypoglycemic [antidiabetic] drugs, initial encounter; G89.29 Other chronic pain; M54.9 Dorsalgia, unspecified; E86.0 Dehydration
CPT/HCPCS: 36415; 36416; 51701; 76700; 76770; 80053; 80069; 81003; 81015; 82010; 82330; 82553; 82803; 83605; 83690; 83735; 84100; 84484; 85025; 87040; 87077; 87086; 87149; 87186; 87324; 87449; 96361; 96374; 96375; 96376; A4216; J0360; J0696; J1610; J1815; J1885; J1956; J2270; J2405; J2704; J7050

== ENCOUNTER 2017-10-08 18:20 | Emergency (ER) | payer OTHER, SELFPAY ==
[2017-10-08 18:43] LABS: Bilirubin Negative (Negative); Blood, Urine Small (Negative); Clarity Slightly Cloudy (Clear); Glucose, Urine (Dipstick) 500 mg/dL (Negative); Leukocyte Negative (Negative); Nitrite Positive (Negative); Protein, Urine (Dipstick) 100 mg/dL (Neg-Trace); Specific Gravity, Urine 1.015 (1.005-1.030); Urobilinogen 0.2 mg/dL (0.2-1.0)
[2017-10-08 18:58] LABS: Hyaline Casts/LPF 0-3 HYALINE CAST LPF (0-3 Hyaline); Squamous Epithelial None Seen HPF (0-3); WBC/HPF 0-3 HPF (0-3)
[2017-10-08 19:06] LABS: Crystals/HPF None Seen HPF (Negative)
[2017-10-08 19:07] LABS: Bacteria/HPF None Seen HPF (None Seen)
[2017-10-08 19:43] LABS: #Basophils 0.1 thou/uL (0.0-0.2); #Eosinphils 0.3 thou/uL (0.0-0.7); #Lymphocytes 2.5 thou/uL (1.20-3.40); #Monocytes 0.4 thou/uL (0.11-0.59); #Neutrophils 5.5 thou/uL (1.40-6.50); %Basophils 0.6 % (0.0-1.0); %Eosinophils 3.4 % (0.0-10.0); %Lymphocytes 28.5 % (21.0-51.0); %Monocytes 4.8 % (0.0-10.0); %Neutrophils 62.6 % (42.0-75.0); Hemoglobin 11.5 g/dL (12.0-16.0); Mean Corpuscular HGB CONC 32.7 g/dL (32.0-36.0); Mean Corpuscular Hemoglobin 30.1 pg (27.0-31.0); Mean Corpuscular Volume 91.8 fl (81.0-99.0); Mean Platelet Volume 6.7 fL (7.4-10.4); Platelet Count 246 thou/uL (130-400); RBC Distribution Width 12.4 % (11.5-14.5); Red Blood Cell (RBC) Count 3.83 mill/uL (4.20-5.40); White Blood Cell (WBC) Count 8.8 thou/uL (4.8-10.8)
[2017-10-08 20:02] LABS: ALT (SGPT) 7 U/L (8-55); AST (SGOT) 9 U/L (5-34); Albumin 3.6 g/dL (3.5-5.0); Alkaline Phosphatase 122 U/L (40-150); Anion Gap 11 mmol/L (10-20); BUN (Urea Nitrogen) 17 mg/dL (9.8-20.1); Bilirubin, Total 0.3 mg/dL (0.2-1.2); Calc. Creatinine Clearance 0 mL/min (70-130); Calcium 8.9 mg/dL (7.8-10.44); Carbon Dioxide 22 mmol/L (22-29); Chloride 107 mmol/L (98-107); Estimated GFR-MDRD Greater than 90; Globulin 2.7 g/dL (2.4-3.5); Glucose 284 mg/dL (70-105); Potassium 3.9 mmol/L (3.5-5.1); Protein, Total 6.3 g/dL (6.0-8.3); Sodium 136 mmol/L (136-145)
== END 2017-10-08 20:35 | disposition home or self-care (01) ==
LOC: ERS 18:20
DX: N39.0 Urinary tract infection, site not specified (principal); E11.9 Type 2 diabetes mellitus without complications; F32.9 Major depressive disorder, single episode, unspecified; F41.9 Anxiety disorder, unspecified; I10 Essential (primary) hypertension; Z79.4 Long term (current) use of insulin; Z79.899 Other long term (current) drug therapy
CPT/HCPCS: 36415; 80053; 81003; 81015; 83605; 85025; 87040; 99283

== ENCOUNTER 2017-11-21 20:16 | Emergency (ER) | payer OTHER ==
[2017-11-21] MEDS ORDERED: Ondansetron HCl/PF 4 MG/2 ML Vial ONE ×2 (21:03→22:00)
[2017-11-21] MEDS ORDERED: Ketorolac Tromethamine 30 MG/ML VIAL ONE (21:03)
[2017-11-21 21:56] LABS: #Eosinphils 0.1 thou/uL (0.0-0.7); #Lymphocytes 2.5 thou/uL (1.20-3.40); #Monocytes 0.6 thou/uL (0.11-0.59); #Neutrophils 7.3 thou/uL (1.40-6.50); %Basophils 0.3 % (0.0-1.0); %Eosinophils 0.9 % (0.0-10.0); %Lymphocytes 23.7 % (21.0-51.0); %Monocytes 5.4 % (0.0-10.0); %Neutrophils 69.7 % (42.0-75.0); Hemoglobin 13.3 g/dL (12.0-16.0); Mean Corpuscular HGB CONC 34.1 g/dL (32.0-36.0); Mean Corpuscular Hemoglobin 30.5 pg (27.0-31.0); Mean Corpuscular Volume 89.6 fl (81.0-99.0); Mean Platelet Volume 7.2 fL (7.4-10.4); Platelet Count 301 thou/uL (130-400); RBC Distribution Width 12.4 % (11.5-14.5); Red Blood Cell (RBC) Count 4.35 mill/uL (4.20-5.40); White Blood Cell (WBC) Count 10.5 thou/uL (4.8-10.8)
[2017-11-21 22:16] LABS: Anion Gap 14 mmol/L (10-20); BUN (Urea Nitrogen) 20 mg/dL (9.8-20.1); Calc. Creatinine Clearance 0 mL/min (70-130); Calcium 9.7 mg/dL (7.8-10.44); Carbon Dioxide 21 mmol/L (22-29); Chloride 103 mmol/L (98-107); Estimated GFR-MDRD 54; Glucose 100 mg/dL (70-105); Potassium 3.4 mmol/L (3.5-5.1); Sodium 135 mmol/L (136-145)
[2017-11-21] MEDS ORDERED: Acetaminophen 1,000 MG in Premix Bag 1 BAG IVPB SCH (22:30)
[2017-11-22] MEDS ORDERED: Ketorolac Tromethamine 30 MG/ML VIAL ONE (00:25)
[2017-11-22 01:03] LABS: Bilirubin Small (Negative); Blood, Urine Trace (Negative); Clarity CLOUDY (Clear); Glucose, Urine (Dipstick) Negative (Negative); Leukocyte Small (Negative); Nitrite Positive (Negative); Protein, Urine (Dipstick) 100 mg/dL (Neg-Trace); Specific Gravity, Urine 1.014 (1.002-1.036); pH, Urine 5.5 (5.0-9.0)
[2017-11-22 01:12] LABS: Crystals/HPF Other Crystals HPF (Negative)
[2017-11-22 01:16] LABS: Bacteria/HPF Rare-Few HPF (None Seen); Hyaline Casts/LPF 0-3 HYALINE CAST LPF (0-3 Hyaline); RBC/HPF 0-3 HPF (0-3)
== END 2017-11-22 02:31 | disposition home or self-care (01) ==
LOC: ERS 20:16
DX: N39.0 Urinary tract infection, site not specified (principal); E11.9 Type 2 diabetes mellitus without complications; F32.9 Major depressive disorder, single episode, unspecified; F41.9 Anxiety disorder, unspecified
CPT/HCPCS: 36415; 51701; 80048; 81003; 81015; 83605; 85025; 87040; 87086; 96361; 96374; 96375; J0131; J0696; J1885; J2270; J2405

== ENCOUNTER 2017-11-23 01:29 | Emergency (ER) | payer OTHER ==
[2017-11-23 03:29] LABS: Hemoglobin 13.2 g/dL (12.0-16.0); Lymphocytes 31 % (21-51); MDiff Complete? YES; Mean Corpuscular HGB CONC 33.5 g/dL (32.0-36.0); Mean Corpuscular Hemoglobin 30.7 pg (27.0-31.0); Mean Corpuscular Volume 91.7 fl (81.0-99.0); Mean Platelet Volume 7.3 fL (7.4-10.4); Monocytes 5 % (0-10); Neutrophil 64 % (42-75); PLT Morphology Comment Appears Adequate; Platelet Count 224 thou/uL (130-400); RBC Distribution Width 12.7 % (11.5-14.5); Red Blood Cell (RBC) Count 4.29 mill/uL (4.20-5.40); White Blood Cell (WBC) Count 9.2 thou/uL (4.8-10.8)
[2017-11-23 03:35] LABS: ALT (SGPT) 9 U/L (8-55); AST (SGOT) 17 U/L (5-34); Albumin 4.2 g/dL (3.5-5.0); Alkaline Phosphatase 99 U/L (40-150); Anion Gap 17 mmol/L (10-20); BUN (Urea Nitrogen) 12 mg/dL (9.8-20.1); Calc. Creatinine Clearance 0 mL/min (70-130); Calcium 9.5 mg/dL (7.8-10.44); Carbon Dioxide 18 mmol/L (22-29); Chloride 107 mmol/L (98-107); Estimated GFR-MDRD 53; Globulin 3.2 g/dL (2.4-3.5); Glucose 197 mg/dL (70-105); Potassium 3.7 mmol/L (3.5-5.1); Protein, Total 7.4 g/dL (6.0-8.3); Sodium 138 mmol/L (136-145)
[2017-11-23] MEDS ORDERED: ISOVUE-370 76%-LOCM 1 ML ONE (07:34)
--- NOTE | 2017-11-23 09:39 | CT ---
PRELIMINARY REPORT/[facility]/EMERGENCY AFTER HOURS PROCEDURE: EXAM: CT Abdomen and Pelvis With Intravenous Contrast EXAM DATE/TIME: Exam ordered 11/23/2017 3:50 AM CLINICAL HISTORY: 57 years old, female; Pain; Abdominal pain; Localized; Lower; Prior surgery; Patient HX: Er 8; Abdomi nal pain. Pt reports bladder infection symptoms are localized, most severe in the suprapubic region, seen in er last night for same symptoms. Reports nausea, denies v/d. Surgical HX of l4-l5 fusion, evonne gical history of cholecystectomy, surgical history of hysterectomy. Biopsy of bladder December 2015 TECHNIQUE: Axial computed tomography images of the abdomen and pelvis with intravenous contrast. Coronal reforma tted images were created and reviewed. COMPARISON: No relevant prior studies available. FINDINGS: Lower thorax: No acute findings. ABDOMEN: Liver: Unremarkable. No mass. Gallbladder and bile ducts: Prior cholecystectomy. No ductal dilation. Pancreas: Unremarkable. No mass. No ductal dilation. Spleen: Unremarkable. No splenomegaly. Adrenals: Unremarkable. No mass. Kidneys and ureters: There are ill-defined areas of relatively decreased enhancement in the parenchyma of the left kidney, suspicious for pyelonephritis. No hydronephrosis. Stomach and bowel: Colonic diverticulosis. No diverticulitis. No bowel wall thickening or intestinal obstruction. Appendix: Normal appendix. PELVIS: Bladder: Unremarkable. No mass. Reproductive: Prior hysterectomy. ABDOMEN and PELVIS: Intraperitoneal space: Unremarkable. No free air. No significant fluid collection. Bones/joints: No acute fracture. No dislocation. Soft tissues: Unremarkable. Vasculature: Unremarkable. No abdominal aortic aneurysm. Lymph nodes: Unremarkable. No enlarged lymph nodes. IMPRESSION: There are ill-defined areas of relatively decreased enhancement in the parenchyma of the left kidney, suspicious for pyelonephritis. Thank you for allowing us to participate in the care of your patient. Dictated and Authenticated by: Balwinder Pearce MD 11/23/2017 4:04 AM Central Time ([place] & [place]) FINAL REPORT CT ABDOMEN AND PELVIS WITH IV CONTRAST: Date: 11/23/17 FINDINGS/IMPRESSION: I agree with the preliminary report given by Diamante. POS: [facility]
== END 2017-11-23 05:09 | disposition home or self-care (01) ==
LOC: ERS 01:29
DX: R10.30 Lower abdominal pain, unspecified (principal); E11.9 Type 2 diabetes mellitus without complications; F41.9 Anxiety disorder, unspecified; F32.9 Major depressive disorder, single episode, unspecified; Z79.4 Long term (current) use of insulin; Z79.899 Other long term (current) drug therapy
CPT/HCPCS: 36415; 74177; 80053; 85025; 94760; 96361; 96374; J2270

== ENCOUNTER 2017-12-23 14:28 | Outpatient (CLI) | payer OTHER ==
[2017-12-23] MEDS ORDERED: Gadobenate Dimeglumine 529 MG/1 ML (20ML VIAL) ONE (15:20)
== END 2017-12-23 14:29 | disposition home or self-care (01) ==
LOC: BICMRI 14:28
PROVIDERS: ATTEND Nurse Practitioner Family
DX: M96.1 Postlaminectomy syndrome, not elsewhere classified (principal); M47.26 Other spondylosis with radiculopathy, lumbar region; Z98.890 Other specified postprocedural states
CPT/HCPCS: 72100; 72158; A9579

== ENCOUNTER 2019-03-15 00:14 | Emergency (ER) | payer BC ==
[2019-03-15] MEDS ORDERED: Ketorolac Tromethamine 60 MG/2 ML VIAL ONE (01:19)
[2019-03-15] MEDS ORDERED: Morphine 4 MG/ML VIAL ONE (02:01)
[2019-03-15] MEDS ORDERED: HYDROcodone/Acetaminophen 5/325 mg Tablet ONE (02:56)
[2019-03-15] MEDS ORDERED: Acetaminophen 500 MG TAB ONE (02:57)
--- NOTE | 2019-03-15 07:46 | CT ---
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 PT reports she has been having trouble with shoulder for the past 6 weeks with decreased rom. PT reports tingling in fingers. TECHNIQUE: Imaging protocol: CT of the Left upper extremity without contrast was performed. Exam focused on the shoulder. COMPARISON: No relevant prior studies available. FINDINGS: Bones/joints: On axial images 28-31, chip fracture involving the anterior aspect of the right glenoid . No dislocation. Soft tissues: No soft tissue radiopaque foreign body or soft tissue calcification. Other findings: No AC separation. IMPRESSION: On axial images 28-31, chip fracture involving the anterior aspect of the right glenoid. Thank you for allowing us to participate in the care of your patient. Dictated and Authenticated by: Sourav Boyer MD 03/15/2019 3:50 AM Central Time ([place]) FINAL REPORT: CT LEFT SHOULDER NONCONTRAST: DATE: 03/15/2019. TIME: Performed on emergency basis at 0150 hours. HISTORY: Left shoulder injury. FINDINGS: Agree with the preliminary report by Dr. Boyer from [facility]. Tiny mildly displaced Banka rt fracture anterior osseous glenoid. Transcribed Date/Time: 03/15/2019 8:41 AM
--- NOTE | 2019-03-15 09:22 | RAD ---
TWO VIEWS LEFT FOREARM: COMPARISON: None. HISTORY: Fall with left arm pain. FINDINGS: Two views of the left forearm show no evidence of acute fracture or dislocation. No soft tissue swel ling is seen. No degenerative changes are seen in the wrist or elbow. IMPRESSION: Unremarkable exam. POS: [facility]
--- NOTE | 2019-03-15 09:28 | RAD ---
THREE VIEWS LEFT SHOULDER: HISTORY: Fall with left shoulder. FINDINGS: Three views left shoulder show no evidence of acute fracture or dislocation. Mild joint space narrow ing is seen in the glenohumeral joint. The visualized left thorax is unremarkable. IMPRESSION: Mild left shoulder osteoarthritis without acute osseous abnormality. POS: [facility]
== END 2019-03-15 03:00 | disposition home or self-care (01) ==
LOC: ERS 00:14
DX: M25.512 Pain in left shoulder (principal); F41.9 Anxiety disorder, unspecified; F32.9 Major depressive disorder, single episode, unspecified
CPT/HCPCS: J1885; J2270

== ENCOUNTER 2019-04-26 20:45 | Inpatient (IN) | payer BC ==
[~2019-04-26 20:45] MED LIST: ISOVUE-370 76%-LOCM 1 ML ONE
[2019-04-26 22:36] LABS: #Basophils 0.1 thou/uL (0.0-0.2); #Eosinphils 0.2 thou/uL (0.0-0.7); #Lymphocytes 2.7 thou/uL (1.20-3.40); #Monocytes 0.6 thou/uL (0.11-0.59); #Neutrophils 8.1 thou/uL (1.40-6.50); %Basophils 1.2 % (0.0-1.0); %Eosinophils 1.7 % (0.0-10.0); %Lymphocytes 23.1 % (21.0-51.0); %Monocytes 5.4 % (0.0-10.0); %Neutrophils 68.6 % (42.0-75.0); Hemoglobin 13.1 g/dL (12.0-16.0); Mean Corpuscular HGB CONC 35.3 g/dL (32.0-36.0); Mean Corpuscular Hemoglobin 29.7 pg (27.0-31.0); Mean Corpuscular Volume 84.1 fL (78.0-98.0); Mean Platelet Volume 6.9 fL (7.4-10.4); Platelet Count 356 thou/uL (130-400); RBC Distribution Width 12.2 % (11.5-14.5); White Blood Cell (WBC) Count 11.9 thou/uL (4.8-10.8)
[2019-04-26] MEDS ORDERED: Morphine 4 MG/ML VIAL ONE (22:54)
[2019-04-26] MEDS ORDERED: Ondansetron PF 4 MG/2 ML Vial ONE (22:54)
[2019-04-26 22:57] LABS: ALT (SGPT) 9 U/L (8-55); AST (SGOT) 10 U/L (5-34); Albumin 3.4 g/dL (3.5-5.0); Alkaline Phosphatase 111 U/L (40-150); Anion Gap 13 mmol/L (10-20); BUN (Urea Nitrogen) 23 mg/dL (9.8-20.1); Bilirubin, Total 0.7 mg/dL (0.2-1.2); Calc. Creatinine Clearance 0 mL/min (70-130); Calcium 9.7 mg/dL (7.8-10.44); Carbon Dioxide 19 mmol/L (22-29); Chloride 103 mmol/L (98-107); Estimated GFR-MDRD 74; Glucose 199 mg/dL (70-105); Lipase 7 U/L (8-78); Potassium 3.1 mmol/L (3.5-5.1); Protein, Total 6.4 g/dL (6.0-8.3); Sodium 132 mmol/L (136-145)
--- NOTE | 2019-04-26 23:36 | CT ---
CT of abdomen and pelvis: 04/26/2019 COMPARISON: 11/23/2014 HISTORY: Pain TECHNIQUE: Axial CT imaging at 5 mm intervals from lung bases through pubic symphysis with IV and ora l contrast. Coronal reformatted imaging obtained. FINDINGS: The visualized lung bases are unremarkable. Cholecystectomy clips are present. No free intr aperitoneal air or fluid. The liver, spleen, pancreas, adrenal glands, and kidneys demonstrate no acute findings. The colon is decompressed from the level of the proximal descending colon through the rectum, limitin g assessment for bowel wall thickening. Similar findings are seen in the region of the transverse colon. The colonic wall is prominent in these regions. However, no pericolonic fat stranding is seen. A mild degree of colitis cannot be fully excluded but underdistention is favored. The appendix appears within normal limits. No evidence for bowel obstruction. Scattered atherosclerotic calcificat ion of the abdominal aorta noted. No lymphadenopathy is seen within the abdomen or pelvis. Lower lumbar spine postoperative hardware is present. There is postoperative hardware within the left proximal femur. No acute osseous abnormality. IMPRESSION: Nonspecific wall thickening of the colon versus underdistention, primarily involving the transverse colon and descending colon. Mild degree of colitis cannot be fully excluded. No evidence for bowel obstruction, appendicitis, or free intraperitoneal air.
[2019-04-26 23:56] LABS: Bacteria/HPF 2+ HPF (None Seen); Bilirubin 2+ (Negative); Blood, Urine Trace (Negative); Clarity Turbid (Clear); Glucose, Urine (Dipstick) 300 mg/dL (Negative); Leukocyte Negative Leu/uL (Negative); Nitrite 2+ (Negative); Protein, Urine (Dipstick) 600 mg/dL (Neg-Trace); Squamous Epithelial 0-3 HPF (0-3); Urobilinogen 6 mg/dL (Less than 2); WBC/HPF 0-3 HPF (0-3)
[2019-04-27] MEDS ORDERED: cefTRIAXone\\ROCEPHIN 2 GM VIAL ONE (00:50)
[2019-04-27] MEDS ORDERED: Morphine 4 MG/ML VIAL ONE (00:50)
[2019-04-27] MEDS ORDERED: Potassium Chloride 20 MEQ TAB ONE (02:07)
[2019-04-27] MEDS ORDERED: Ondansetron PF 4 MG/2 ML Vial IVP PRN (03:34)
[2019-04-27] MEDS ORDERED: Ondansetron ODT 4 MG TAB SL PRN (03:34)
[2019-04-27] MEDS ORDERED: Sodium Chloride 0.9% 1,000 ML IV SCH ×2 (03:34→10:45)
[2019-04-27 03:54] VITALS: BMI 21.9
[2019-04-27] MEDS ORDERED: Morphine 2 MG/ML SYRINGE SLOW IVP SCH (04:45)
[2019-04-27] MEDS: Morphine 2 MG/ML SYRINGE SLOW IVP PRN ×4 (07:58→22:09)
[2019-04-27] MEDS ORDERED: Calcium Carbonate 500 MG ChewTAB PO PRN (07:59)
[2019-04-27] MEDS ORDERED: Senokot S 8.6-50 MG TAB PO PRN (07:59)
[2019-04-27] MEDS ORDERED: Ondansetron ODT 4 MG TAB PO PRN (07:59)
[2019-04-27] MEDS ORDERED: HumaLOG 300 UNITS/3 ML VIAL SC PRN (09:25)
[2019-04-27] MEDS ORDERED: Dextrose 50% Abboject 50 ML SYRINGE SLOW IVP PRN (09:25)
[2019-04-27] MEDS ORDERED: Dextrose 5% in Water 1,000 ML IV PRN (09:25)
[2019-04-27] MEDS ORDERED: Acetaminophen 650 MG Suppository PR PRN (10:36)
[2019-04-27 10:45] LABS: #Basophils 0.1 thou/uL (0.0-0.2); #Eosinphils 0.2 thou/uL (0.0-0.7); #Lymphocytes 2.1 thou/uL (1.20-3.40); #Monocytes 0.6 thou/uL (0.11-0.59); #Neutrophils 8.2 thou/uL (1.40-6.50); %Basophils 1.3 % (0.0-1.0); %Eosinophils 1.6 % (0.0-10.0); %Lymphocytes 18.8 % (21.0-51.0); %Monocytes 5.4 % (0.0-10.0); %Neutrophils 72.9 % (42.0-75.0); Hemoglobin 12.1 g/dL (12.0-16.0); Mean Corpuscular HGB CONC 34.2 g/dL (32.0-36.0); Mean Corpuscular Hemoglobin 29.5 pg (27.0-31.0); Mean Corpuscular Volume 86.2 fL (78.0-98.0); Mean Platelet Volume 6.8 fL (7.4-10.4); Platelet Count 330 thou/uL (130-400); RBC Distribution Width 12.2 % (11.5-14.5); White Blood Cell (WBC) Count 11.3 thou/uL (4.8-10.8)
[2019-04-27] MEDS ORDERED: Potassium Chloride 20 MEQ in Premix Bag 1 BAG IVPB SCH (10:45)
[2019-04-27 10:53] LABS: PTT 26.3 SEC (22.9-36.1); Prothrombin Time 13.1 SEC (12.0-14.7)
[2019-04-27 11:13] LABS: Lactic Acid 1.2 mmol/L (0.5-2.2)
[2019-04-27 11:18] LABS: ALT (SGPT) 7 U/L (8-55); AST (SGOT) 14 U/L (5-34); Alkaline Phosphatase 88 U/L (40-150); Anion Gap 14 mmol/L (10-20); BUN (Urea Nitrogen) 18 mg/dL (9.8-20.1); Bilirubin, Total 0.7 mg/dL (0.2-1.2); Calc. Creatinine Clearance 71 mL/min (70-130); Calcium 8.8 mg/dL (7.8-10.44); Carbon Dioxide 15 mmol/L (22-29); Chloride 109 mmol/L (98-107); Estimated GFR-MDRD 82; Globulin 2.7 g/dL (2.4-3.5); Glucose 172 mg/dL (70-105); Lipase 4 U/L (8-78); Protein, Total 5.7 g/dL (6.0-8.3); Sodium 134 mmol/L (136-145)
--- NOTE | 2019-04-27 11:53 | HP ---
PRIMARY CARE PHYSICIAN: At [facility]. CHIEF COMPLAINT: Abdominal pain. HISTORY OF PRESENT ILLNESS: Ms. Sal is a 58-year-old woman, who presents with complaints of progressively worsening abdominal pain for the last 4 to 5 days. She states the pain is constant and aching in nature, but severe when it does come on, rating it a 10/10 in severity. She states it is mainly in the epigastric region , but also reports suprapubic discomfort, which she feels is associated with the UTI. She has had frequent UTIs associated with self catheterization for the last year. The patient states she experienced urinary retention a year ago and was never told what the cause was of it. It sounds as though she may be experiencing bladder spasms that prompts her to catheterize herself and has a small amount of urinary output. Her urine is orange in color due to taking Pyridium. She has not noted any hematuria. For the last 4 days to 5 days, she reports having no oral intake except for small sips of water due to vomiting that occurs if she tries to eat anything or drink large amounts. She states her discomfort was being relieved by Pepto- Bismol initially and it is no longer helping. She denies chest pain. She reports having diarrhea, but states this is common for her and she was told this was associated with her underlying diabetes. The patient denies having any fever, but has been experiencing intermittent chills. In the emergency department, the patient underwent urinalysis, which showed positive nitrites and bacteria. Therefore started on antibiotics for pyelonephritis. She was started on ceftriaxone. Laboratory studies were also notable for low potassium of 3.0 and this was replaced with 40 mEq of potassium chloride. She was also given 1 L of normal saline and morphine for her pain. A CT of the abdomen and pelvis was done, which showed some nonspecific wall thickening of the colon versus under distention. This was primarily involving the transverse colon and descending colon. There was a very mild degree of colitis that could not be fully excluded. Otherwise, no evidence for bowel obstruction, appendicitis or free intraperitoneal air. REVIEW OF SYSTEMS: The patient denies noting any bright red blood in stool. No melena. Has not noted any hematuria. No chest pain, palpitations, or shortness of breath. No headaches or dizziness. All other review of systems apart from those mentioned above in HPI are negative. PAST MEDICAL HISTORY: 1. Diabetes mellitus, type 2. 2. Fibromyalgia. 3. Anxiety. 4. Depression. 5. History of urinary retention, requiring self catheterization. 6. Chronic diarrhea. PAST SURGICAL HISTORY: 1. L4-L5 fusion. 2. Cholecystectomy. 3. Hysterectomy. 4. Left hip surgery for fracture. SOCIAL HISTORY: The patient denies any alcohol use, tobacco use, or illicit drug use. ALLERGIES: SULFA. CURRENT MEDICATIONS: 1. Tizanidine. 2. Humalog. 3. Pyridium. PHYSICAL EXAMINATION: GENERAL: The patient appears very thin, frail, well-developed, and in some discomfort, but no acute distress. VITAL SIGNS: Temperature 98, pulse 90, respirations 20, O2 saturation 94% on room air, and blood pressure 171/90. HEENT: Normocephalic and atraumatic. Pupils are equal, round, and reactive to light. Sclerae without icterus. Oropharynx, notable for very poor dentition. Mucous membranes dry. NECK: Supple without lymphadenopathy. LUNGS: Clear to auscultation bilaterally without wheezes, rales, or rhonchi. CARDIAC: Regular rate and rhythm. ABDOMEN: Soft, nondistended. Normoactive bowel sounds present. Diffuse discomfort with light palpation, but no rigidity. Suprapubic discomfort with palpation. Degree of pain is out of proportion to abdominal exam. The patient with left CVA tenderness. EXTREMITIES: Without lower leg swelling or edema. NEUROLOGIC: Alert and oriented x3. SKIN: Very dry. No jaundice. IMPRESSION AND PLAN: Ms. Sal is a 58-year-old woman presenting with abdominal pain, reporting postprandial nausea and vomiting for the last 4 days to 5 days. Therefore, she has had no food by mouth and minimal fluid intake. She is being referred for management of the followin. Abdominal pain. Presumed pyelonephritis. On exam, she did have left flank tenderness and urinalysis was positive for nitrites as well as bacteria. Urine culture requested. We will continue antibiotics. There could be a mixed picture given her GI symptoms and epigastric discomfort. The pain is severe and disproportionate to her exam. CT unremarkable. There is a concern for mesenteric ischemia. The patient states the worst pain is in the epigastric region. No evidence of pyelonephritis on the CT, nor any other abnormality to explain her pain. Following discussion with Dr. Sheppard, we have decided to request a GI consultation. We will repeat laboratory studies today including CMP. We will continue to keep her n.p.o. 2. Diarrhea. We will obtain stool cultures including ova and parasites, and Clostridium difficile. 3. Hypokalemia. The patient will be placed on fluids with 20 mEq of KCl. Was also prescribed an additional 20 mEq of KCl x1. We will continue to monitor electrolytes. 4. Diabetes mellitus. Insulin sliding scale initiated. We will continue to monitor glucose. 5. Code status is full code. Her surrogate decision maker is her , Javan Sal. The patient's case was discussed with Dr. Sheppard who agrees with the plan of care as described above. Job ID: [id number] MTDD
[2019-04-27] MEDS: NS 0.9% w/ 20 MEQ KCL 1,000 ML/1,000 ML BAG IV SCH ×2 (12:07→22:11)
[2019-04-27] MEDS: Acetaminophen 325 MG TAB PO PRN (12:22)
[2019-04-27] MEDS ORDERED: Cyclobenzaprine 10 MG TAB PO PRN (17:20)
[2019-04-27] MEDS ORDERED: Trospium 20 MG TAB PO SCH (17:30)
[2019-04-27] MEDS: Ondansetron PF 4 MG/2 ML Vial IVP PRN (17:36)
[2019-04-27] MEDS: ALPRAZolam 0.25 MG TAB PO PRN ×2 (17:45→22:15)
[2019-04-27] MEDS: Trospium 20 MG TAB PO SCH (20:00)
[2019-04-28] MEDS: NS 0.9% w/ 20 MEQ KCL 1,000 ML/1,000 ML BAG IV SCH ×2 (00:34→07:08)
[2019-04-28] MEDS: cefTRIAXone\\ROCEPHIN 2 GM in Sodium Chloride 0.9% 100 ML IVPB SCH (01:45)
--- NOTE | 2019-04-28 01:53 | CON ---
DATE OF CONSULTATION: 04/27/2019 CHIEF COMPLAINT: Abdominal pain. HISTORY OF PRESENT ILLNESS: Ms. Sal is a 58-year-old woman with a history of poorly-controlled diabetes, on insulin, who has had recurrent episodes of nausea, vomiting, and abdominal pain over the years. She has had numerous CT scans. She has been diagnosed with urinary tract infection when she comes in with these episodes and has a history of neurogenic bladder for which she self catheterizes at home. She has not been using clean technique for the catheterizations according to the nursing staff. She wants catheterization for bladder spasms, even though she has very little urine actually in the bladder. She has been requiring morphine and nausea medicine today. She had similar presentation back in August 2017 at which time, she underwent upper endoscopy by Dr. Ely. The EGD at that time showed some retained food material in the stomach, but the EGD was otherwise normal. I performed upper endoscopy for her back in July 2015 for similar presentation as well. At that time, her upper endoscopy was normal. Duodenal biopsies were negative for celiac disease. Suspicion for gastroparesis has been raised multiple times; however, she has not followed up for outpatient exams to evaluate with gastric emptying scan. During an acute pain and nausea vomiting episode, this is not the optimal time to perform a gastric emptying scan. Her last colonoscopy was around 2004 and was negative at that time. CT scan this hospitalization showed nondistention of the transverse colon and descending colon. Question of thickening of the colon could not be ruled out, but certainly no inflammatory changes were noted. PAST MEDICAL HISTORY: Poorly-controlled diabetes mellitus, fibromyalgia, anxiety, depression, neurogenic bladder requiring catheterization in and out. PAST SURGICAL HISTORY: L4-L5 fusion, cholecystectomy, hysterectomy, hip surgery. SOCIAL HISTORY: No alcohol, tobacco, or drugs. ALLERGIES: SULFA. MEDICATIONS: As an outpatient; 1. Insulin. 2. Tizanidine. 3. Pyridium. CURRENT INPATIENT MEDICATIONS: Include; 1. Ceftriaxone. 2. Insulin. 3. Saccharomyces. 4. Morphine. FAMILY HISTORY: Negative for GI malignancy. REVIEW OF SYSTEMS: Negative x10 systems reviewed except as stated in the history of present illness. PHYSICAL EXAMINATION: VITAL SIGNS: Temperature 98.2, pulse 95, blood pressure 160/87. GENERAL: She is in no acute distress. She is alert and oriented x3. HEENT: Eyes have no scleral icterus. Oropharynx is clear without lesions. LYMPH: No cervical or supraclavicular lymphadenopathy. LUNGS: Clear to auscultation bilaterally. HEART: Regular rate and rhythm without murmur. ABDOMEN: Soft. She has diffuse tenderness in the periumbilical to lower abdominal area as well as epigastric region. The tenderness is not associated with significant guarding. Her bowel sounds are present. EXTREMITIES: No lower extremity edema. LABORATORY DATA: White blood cell count 11.3, hemoglobin 12.1, platelets 330. INR 1.0. Creatinine 0.73, bilirubin 0.7, AST 14, ALT 7, alkaline phosphatase 88, albumin 3.0, lipase 4. IMPRESSION: Chronic recurrent epigastric to periumbilical abdominal pain. She has had multiple similar recurrent presentations with abdominal pain and reported urinary tract infection over the last several years. She has had numerous CT scans. She had endoscopy in August 2017 and in 2014, both of which were normal. She also had upper and lower endoscopies in 2004 for similar presentation. This is most likely functional pain and related potentially to gastroparesis with her poorly-controlled diabetes. Enteric neuropathy is another consideration related to her diabetes. She was requesting morphine for pain control; however, this may just contribute to her dysmotility. RECOMMENDATIONS: 1. In light of the CT scan showing questionable thickening of the distal transverse colon, proximal, and descending colon, this raises the question of ischemic colitis. Overall, this appears more likely to just be nondistention. Colonoscopy at this point is indicated to rule out ischemic colitis. Upper endoscopy can be performed at the same time to rule out peptic ulcer or upper gastrointestinal source for her pain given the epigastric pain. Otherwise, I would try to avoid repeated endoscopies given that she has had repeatedly negative upper endoscopies over the last few years for similar pain. 2. Eventually, she should undergo gastric emptying scan as an outpatient when her symptoms are better controlled to get a better idea of what her underlying gastric motility is like. 3. I will schedule for EGD and colonoscopy for the day after tomorrow. We can try a bowel prep tomorrow. She does not believe she can take the bowel prep today due to nausea. Job ID: [id number]
[2019-04-28] MEDS: Morphine 2 MG/ML SYRINGE SLOW IVP PRN ×4 (06:00→21:50)
[2019-04-28 06:11] LABS: ALT (SGPT) Less than 7 U/L (8-55); AST (SGOT) 15 U/L (5-34); Albumin 2.7 g/dL (3.5-5.0); Alkaline Phosphatase 72 U/L (40-150); Anion Gap 11 mmol/L (10-20); BUN (Urea Nitrogen) 11 mg/dL (9.8-20.1); Bilirubin, Total 0.4 mg/dL (0.2-1.2); Calc. Creatinine Clearance 84 mL/min (70-130); Calcium 8.3 mg/dL (7.8-10.44); Carbon Dioxide 15 mmol/L (22-29); Chloride 115 mmol/L (98-107); Estimated GFR-MDRD Greater than 90; Globulin 2.4 g/dL (2.4-3.5); Glucose 102 mg/dL (70-105); Potassium 4.3 mmol/L (3.5-5.1); Protein, Total 5.1 g/dL (6.0-8.3); Sodium 137 mmol/L (136-145)
[2019-04-28 06:57] LABS: #Basophils 0.1 thou/uL (0.0-0.2); #Eosinphils 0.3 thou/uL (0.0-0.7); #Lymphocytes 2.4 thou/uL (1.20-3.40); #Monocytes 0.6 thou/uL (0.11-0.59); #Neutrophils 7.3 thou/uL (1.40-6.50); %Lymphocytes 22.4 % (21.0-51.0); %Monocytes 5.6 % (0.0-10.0); Hemoglobin 11.2 g/dL (12.0-16.0); Mean Corpuscular HGB CONC 32.8 g/dL (32.0-36.0); Mean Corpuscular Hemoglobin 30.4 pg (27.0-31.0); Mean Corpuscular Volume 92.6 fL (78.0-98.0); Platelet Count 275 thou/uL (130-400); RBC Distribution Width 12.5 % (11.5-14.5); Red Blood Cell (RBC) Count 3.68 mill/uL (4.20-5.40); White Blood Cell (WBC) Count 10.8 thou/uL (4.8-10.8)
[2019-04-28] MEDS: Saccharomyces boulardii 250 MG CAP PO SCH (08:21)
[2019-04-28] MEDS: ALPRAZolam 0.25 MG TAB PO PRN (08:21)
[2019-04-28] MEDS: Trospium 20 MG TAB PO SCH ×2 (08:21→21:48)
[2019-04-28] MEDS ORDERED: cloNIDine 0.1 MG TAB PO PRN (08:35)
[2019-04-28] MEDS ORDERED: Saccharomyces boulardii 250 MG CAP PO SCH (09:00)
[2019-04-28] MEDS ORDERED: Labetalol HCl 100 MG/20 ML VIAL SLOW IVP PRN (11:53)
[2019-04-28 12:40] LABS: Anion Gap 9 mmol/L (10-20); BUN (Urea Nitrogen) 9 mg/dL (9.8-20.1); Calc. Creatinine Clearance 88 mL/min (70-130); Calcium 8.2 mg/dL (7.8-10.44); Carbon Dioxide 17 mmol/L (22-29); Chloride 114 mmol/L (98-107); Estimated GFR-MDRD Greater than 90; Glucose 131 mg/dL (70-105); Lactic Acid 0.7 mmol/L (0.5-2.2); Potassium 4.2 mmol/L (3.5-5.1); Sodium 136 mmol/L (136-145)
[2019-04-28] MEDS ORDERED: GoLYTELY 4,000 ml Bottle PO SCH (13:00)
[2019-04-28] MEDS: 1/2 NS w/KCL 20 mEq 1,000 ML IV SCH (15:13)
--- NOTE | 2019-04-28 15:45 | EKG ---
Test Reason : Blood Pressure : / mmHG Vent. Rate : 101 BPM Atrial Rate : 101 BPM P-R Int : 160 ms QRS Dur : 068 ms QT Int : 336 ms P-R-T Axes : 059 -29 124 degrees QTc Int : 435 ms Sinus tachycardia Possible Left atrial enlargement Abnormal ECG Confirmed by NUBIA MARTINEZ MD ([id number]), news video editor FELIBERTO OCAMPO ([id number]) on 04/28/2019 3:45:04 PM Referred By: Confirmed By:NUIBA MARTINEZ MD
--- NOTE | 2019-04-28 16:36 | PRG ---
DATE OF SERVICE: 04/28/2019 SUBJECTIVE: Ms. Krishna continues to have upper and lower abdominal pain and nausea. She has had no bowel movement today. PHYSICAL EXAMINATION: VITAL SIGNS: Temperature is 98.2, pulse 88, blood pressure 167/97. GENERAL: She is in no acute distress. She is somewhat sleepy after receiving morphine. LUNGS: Clear to auscultation bilaterally. HEART: Regular rate and rhythm without murmur. ABDOMEN: Soft, but very tender without guarding. Bowel sounds are present. EXTREMITIES: No lower extremity edema. IMPRESSION: Chronic recurrent epigastric to periumbilical abdominal pain. I suspect this is functional in nature. She has had multiple presentations over the last decade with similar symptoms with workup including numerous CT scans and upper endoscopies. At this time, the CT does show some questionable thickening versus non-distention of the left colon in the region of the descending colon. We can rule out ischemic colitis in this area with colonoscopy. RECOMMENDATIONS: 1. Bowel prep today. 2. EGD and colonoscopy tomorrow. Job ID: [id number]
[2019-04-28] MEDS ORDERED: B & O PR PRN (17:38)
[2019-04-28] MEDS ORDERED: Hyoscyamine Sulfate SL 0.125 mg Tablet PO PRN (17:41)
--- NOTE | 2019-04-28 20:01 | PDOC.HOSPP ---
- Subjective Subjective: Patient seen and examined for Abd pain/UTI. Abd pain somewhat better. No fever/ chills. . No new complaints. No overnight events - Objective Vital Signs & Weight: Vital Signs (12 hours) Temp Pulse Resp BP Pulse Ox 04/28/19 16:00 98.6 F 92 20 138/84 98 04/28/19 12:41 88 04/28/19 11:23 98.6 F 88 18 167/97 H 94 L 04/28/19 08:00 93 L Weight Weight 120 lb I&O: 04/27/19 04/28/19 04/29/19 06:59 06:59 06:59 Intake Total 560 2440 Output Total 800 Balance 560 1640 Result Diagrams: 04/28/19 06:43 04/28/19 12:02 Additional Labs: Accuchecks 04/28/19 04/28/19 04/28/19 16:26 11:25 04:53 POC Glucose 125 H 134 H 98 04/27/19 19:31 POC Glucose 136 H Radiology Reviewed by me: Yes (CT abd - Colitis) ROS - Review of Systems All systems: All other ROS were reviewed and found negative. Respiratory: denies: cough, dry, shortness of breath, hemoptysis, SOB with excertion, pleuritic pain, sputum, wheezing, other Cardiovascular: denies: chest pain, palpitations, orthopnea, paroxysmal noc. dyspnea, edema, light headedness, other Gastrointestinal: reports: nausea, abdominal pain. denies: vomitting, diarrhea , constipation, melena, hematochezia, other - Medication Medications: Active Medications Generic Name Dose Route Start Last Admin Trade Name Loboq PRN Reason Stop Dose Admin Acetaminophen 650 mg 04/27/19 07:59 04/27/19 12:22 Tylenol PO 650 mg Q4H PRN Administration Headache/Fever/Mild Pain (1-3) Clonidine 0.1 mg 04/28/19 08:35 04/28/19 10:22 Catapres PO 0.1 mg Q4H PRN Administration SBP Greater Than 180 Cyclobenzaprine HCl 5 mg 04/27/19 17:20 04/27/19 20:00 Flexeril PO 04/29/19 17:21 5 mg TID PRN Administration Muscle Spasm Dicyclomine HCl 10 mg 04/27/19 10:34 04/27/19 15:58 Bentyl IM 10 mg QIDPRN PRN Administration GI Cramping Ceftriaxone Sodium 2 gm/ 100 mls @ 200 mls/hr 04/28/19 01:00 04/28/19 01:45 Sodium Chloride IVPB 100 mls Q24HR DEVORA Administration Potassium Chloride/Sodium Chloride 1,000 mls @ 50 mls/hr 04/28/19 08:45 04/28 15:13 1/2 Ns W/Kcl 20 Meq IV 1,000 mls .Q20H DEVORA Administration Labetalol HCl 10 mg 04/28/19 11:53 04/28/19 12:41 Normodyne SLOW IVP 10 mg Q4H PRN Administration Systolic BP > 180 Morphine Sulfate 2 mg 04/27/19 08:45 04/28/19 17:13 Morphine SLOW IVP 2 mg Q4H PRN Administration Pain Ondansetron HCl 4 mg 04/27/19 07:59 04/27/19 17:36 Zofran IVP 4 mg Q6H PRN Administration Nausea/Vomiting Polyethylene Glycol/Electrolytes 4,000 ml 04/28/19 13:00 04/28/19 14:37 Golytely PO 04/28/19 21:00 4,000 ml 1300 DEVORA Administration Saccharomyces Boulardii 250 mg 04/28/19 09:00 04/28/19 08:21 Florastor PO 250 mg DAILY DEVORA Administration Saccharomyces Boulardii 250 mg 04/28/19 09:00 04/28/19 08:21 Florastor PO Not Given DAILY DEVORA Trospium 20 mg 04/27/19 21:00 04/28/19 08:21 Trospium PO 20 mg BID DEVORA Administration - Exam NAD Neck: supple, no JVD Heart: RRR, no gallops, no rubs, normal peripheral pulses Respiratory: CTAB, no rales, no ronchi, normal chest expansion Gastrointestinal: soft, non-distended, normal bowel sounds, tender to palpation , voluntary guarding Extremities: no clubbing, no edema Skin: no rashes Neurological: CN's grossly intact, no focal deficits Musculoskeletal: normal tone Psychiatric: normal affect, A&O x 3 Hosp A/P (1) Abdominal pain Code(s): R10.9 - UNSPECIFIED ABDOMINAL PAIN Status: Acute (2) Sepsis Code(s): A41.9 - SEPSIS, UNSPECIFIED ORGANISM (3) Colitis Code(s): K52.9 - NONINFECTIVE GASTROENTERITIS AND COLITIS, UNSPECIFIED Status : Acute (4) UTI (urinary tract infection) Status: Acute (5) DM2 (diabetes mellitus, type 2) (6) Hypokalemia Code(s): E87.6 - HYPOKALEMIA (7) Physical deconditioning Code(s): R53.81 - OTHER MALAISE (8) Anxiety Code(s): F41.9 - ANXIETY DISORDER, UNSPECIFIED (9) Chronic back pain Code(s): M54.9 - DORSALGIA, UNSPECIFIED; G89.29 - OTHER CHRONIC PAIN - Plan plan discussed w/ family, DVT proph w/SCDs Change IVF to 1/2 NS with KCL EGD/Colon in AM Urine cultures negative Cont Bladder scan Pain control PT/OT
[2019-04-28] MEDS: Simethicone Chewable 80 MG TAB PO SCH (21:48)
[2019-04-29] MEDS: cefTRIAXone\\ROCEPHIN 2 GM in Sodium Chloride 0.9% 100 ML IVPB SCH ×2 (00:52→23:44)
--- NOTE | 2019-04-29 01:21 | CON ---
DATE OF CONSULTATION: 04/28/2019 REQUESTING PHYSICIAN: Hospitalist Service. REASON FOR CONSULTATION: Neurogenic bladder and bladder pain. HISTORY OF PRESENT ILLNESS: Ms. Sal is a 58-year-old female who presented with a 4-5 day history of worsening abdominal pain. Her pain is intermittent, it starts in the epigastric region. She also reports some suprapubic discomfort. The patient has history of a neurogenic bladder. She is a former patient of Dr. Chet Montenegro, last seen in January of 2016. The patient was placed on clean intermittent catheterization at that time. She has not followed up since then. Over approximately the past year, she has been dishwashing her catheters and using these 4-5 times per day. The patient was admitted for further evaluation of her pain. A CT of the abdomen and pelvis did not demonstrate any significant hydroureteronephrosis. There was no perinephric stranding. Her urinalysis was consistent with bacterial colonization from her clean intermittent catheterization. There were no inflammatory changes around her bladder on the CT scan. The patient's pain has been persistent. She has been evaluated by Gastroenterology and they are going to do upper and lower endoscopy tomorrow. She has been placed on several different antispasmodics including Bentyl and trospium as she reports these have helped slightly. She has no other complaints. REVIEW OF SYSTEMS: Full 12-point review of systems was performed and is negative other than that mentioned in HPI. PAST MEDICAL HISTORY: 1. Poorly controlled type 2 diabetes. 2. Fibromyalgia. 3. Anxiety. 4. Depression. 5. Neurogenic bladder requiring clean intermittent catheterization. 6. Chronic diarrhea. PAST SURGICAL HISTORY: L4-L5 fusion, which was fairly recent. Cholecystectomy, hysterectomy, and left hip fixation for traumatic fracture. SOCIAL HISTORY: No alcohol, tobacco, or illicit drugs. ALLERGIES: SULFA. FAMILY HISTORY: Noncontributory. HOME MEDICATIONS: Tizanidine, Humalog, and Pyridium. PHYSICAL EXAMINATION: VITAL SIGNS: Temperature is 98, pulse 76, respirations 18, blood pressure 171/90, oxygen saturation 94% on room air. GENERAL: She is resting comfortably in bed, in no apparent distress. HEENT: Normocephalic, atraumatic. NECK: Supple. No masses or lymphadenopathy. CARDIOVASCULAR: Regular rate and rhythm. PULMONARY: Breathing unlabored. ABDOMEN: Soft, mild epigastric tenderness to palpation. No rebound or guarding. No CVA tenderness. No suprapubic tenderness to palpation. EXTREMITIES: Warm and well perfused. No edema. NEUROLOGICAL: No focal deficits. SKIN: Dry. No jaundice. LABORATORY DATA: White blood cell count 10.8, hemoglobin 11.2, hematocrit 34.1, platelets 275. Sodium 136, potassium 4.2, chloride 114, bicarb 17, BUN 9, creatinine 0.59. RADIOLOGY DATA: CT of the abdomen and pelvis with contrast on 04/26/2019, demonstrated nonspecific thickening of the colon. No hydroureteronephrosis. No perivesical stranding. ASSESSMENT: A 58-year-old female with neurogenic bladder, abdominal pain, possible bladder spasms. PLAN: I reviewed clean intermittent catheterization with the patient. She is performing this 4-5 times a day. It is not ideal that she is washing her catheters and constantly reusing them. Recommend she reestablish care as an outpatient with Urology to order new catheters. If possible, a few in and out red rubber catheters should be provided to the patient at the time of her discharge until she can get in to see Urology. I do not believe her abdominal pain is completely urologic related. Started her on B and O suppositories as well as Levsin. She is already on trospium. Trospium 20 mg p.o. b.i.d. can be prescribed at the time of discharge to help with her bladder spasms. She can follow up with Urology as an outpatient. Thank you for allowing me to participate in the care of this patient. Job ID: [id number]
[2019-04-29] MEDS: Morphine 2 MG/ML SYRINGE SLOW IVP PRN ×5 (01:36→22:03)
[2019-04-29] MEDS: 1/2 NS w/KCL 20 mEq 1,000 ML IV SCH ×2 (03:00→15:01)
[2019-04-29] MEDS: Ondansetron PF 4 MG/2 ML Vial IVP PRN ×2 (07:47→17:56)
[2019-04-29] MEDS: Trospium 20 MG TAB PO SCH ×2 (10:24→20:46)
[2019-04-29] MEDS: Saccharomyces boulardii 250 MG CAP PO SCH (10:25)
[2019-04-29] MEDS: Simethicone Chewable 80 MG TAB PO SCH ×4 (10:25→20:46)
[2019-04-29] MEDS: Multivit, Therapeutic 1 TAB PO SCH (10:25)
[2019-04-29] MEDS: HumaLOG 300 UNITS/3 ML VIAL SC PRN ×2 (13:10→17:57)
--- NOTE | 2019-04-29 17:24 | PDOC.HOSPP ---
- Subjective Subjective: Patient seen and examined around 845am for Sepsis. Abd pain slightly better. No N/V. Could not complete Golytely. No fever/chills. No new complaints. No overnight events - Objective Vital Signs & Weight: Vital Signs (12 hours) Temp Pulse Resp BP Pulse Ox 04/29/19 17:17 98.1 F 97 18 134/74 92 L 04/29/19 11:24 98.4 F 103 H 20 95/69 94 L 04/29/19 07:51 93 L 04/29/19 07:40 98.2 F 93 18 150/84 H 93 L 04/29/19 07:29 98.8 F 96 20 98/68 93 L Weight Weight 120 lb I&O: 04/28/19 04/29/19 04/30/19 06:59 06:59 06:59 Intake Total 560 2440 Output Total 800 Balance 560 1640 Result Diagrams: 04/28/19 06:43 04/28/19 12:02 Additional Labs: Accuchecks 04/29/19 04/29/19 04/29/19 16:12 11:27 05:08 POC Glucose 208 H 213 H 217 H 04/28/19 04/28/19 23:12 20:56 POC Glucose 257 H 327 H ROS - Review of Systems All systems: All other ROS were reviewed and found negative. Respiratory: denies: cough, dry, shortness of breath, hemoptysis, SOB with excertion, pleuritic pain, sputum, wheezing, other Cardiovascular: denies: chest pain, palpitations, orthopnea, paroxysmal noc. dyspnea, edema, light headedness, other Gastrointestinal: reports: abdominal pain. denies: nausea, vomitting, diarrhea , constipation, melena, hematochezia, other Genitourinary: reports: dysuria. denies: frequency, incontinence, hematuria, retention, other - Medication Medications: Active Medications Generic Name Dose Route Start Last Admin Trade Name Freq PRN Reason Stop Dose Admin Acetaminophen 650 mg 04/27/19 07:59 04/27/19 12:22 Tylenol PO 650 mg Q4H PRN Administration Headache/Fever/Mild Pain (1-3) Clonidine 0.1 mg 04/28/19 08:35 04/28/19 10:22 Catapres PO 0.1 mg Q4H PRN Administration SBP Greater Than 180 Ceftriaxone Sodium 2 gm/ 100 mls @ 200 mls/hr 04/28/19 01:00 04/29/19 00:52 Sodium Chloride IVPB 100 mls Q24HR DEVORA Administration Potassium Chloride/Sodium Chloride 1,000 mls @ 50 mls/hr 04/28/19 08:45 04/29 15:01 1/2 Ns W/Kcl 20 Meq IV 1,000 mls .Q20H DEVORA Administration Insulin Human Lispro 0 units 04/27/19 09:25 04/29/19 13:10 Humalog SC 4 unit .MODERATE SLIDING SC PRN Administration Moderate Correctional Scale Labetalol HCl 10 mg 04/28/19 11:53 04/28/19 12:41 Normodyne SLOW IVP 10 mg Q4H PRN Administration Systolic BP > 180 Morphine Sulfate 2 mg 04/27/19 08:45 04/29/19 12:16 Morphine SLOW IVP 2 mg Q4H PRN Administration Pain Multivitamins 1 tab 04/29/19 09:00 04/29/19 10:25 Theragran PO 1 tab DAILY DEVORA Administration Ondansetron HCl 4 mg 04/27/19 07:59 04/29/19 07:47 Zofran IVP 4 mg Q6H PRN Administration Nausea/Vomiting Saccharomyces Boulardii 250 mg 04/28/19 09:00 04/29/19 10:25 Florastor PO 250 mg DAILY DEVORA Administration Simethicone 80 mg 04/28/19 22:00 04/29/19 12:17 Mylicon Chewable PO 80 mg PCHS DEVORA Administration Trospium 20 mg 04/27/19 21:00 04/29/19 10:24 Trospium PO 20 mg BID DEVORA Administration - Exam NAD Neck: supple, no JVD Heart: RRR, no rubs Respiratory: CTAB, no rales Gastrointestinal: soft, normal bowel sounds, tender to palpation, voluntary guarding Extremities: no edema Neurological: no new deficit Hosp A/P (1) Abdominal pain Code(s): R10.9 - UNSPECIFIED ABDOMINAL PAIN Status: Acute (2) Sepsis Code(s): A41.9 - SEPSIS, UNSPECIFIED ORGANISM (3) C. difficile colitis Code(s): A04.72 - ENTEROCOLITIS D/T CLOSTRIDIUM DIFFICILE, NOT SPCF RECUR (4) Catheter-associated urinary tract infection Code(s): T83.511A - I/I REACT D/T INDWELLING URETHRAL CATHETER, INIT; N39.0 - URINARY TRACT INFECTION, SITE NOT SPECIFIED Status: Acute (5) DM2 (diabetes mellitus, type 2) (6) Hypokalemia Code(s): E87.6 - HYPOKALEMIA (7) Physical deconditioning Code(s): R53.81 - OTHER MALAISE (8) Anxiety Code(s): F41.9 - ANXIETY DISORDER, UNSPECIFIED (9) Chronic back pain Code(s): M54.9 - DORSALGIA, UNSPECIFIED; G89.29 - OTHER CHRONIC PAIN - Plan Cont IV Ceftiaxone for UTI - Urine cultures were obtained after Atbx AM labs Add PO Vancomycin for C diff ( C diff results were pending this AM) Cont Probiotic Cont IVF AM labs Cont PRN Urine Cath Isolation for C diff EGD/Colon today
[2019-04-29] MEDS: Vancomycin HCl 25 MG/ML Oral PO SCH ×2 (17:45→23:44)
[2019-04-29] MEDS ORDERED: GoLYTELY 4,000 ml Bottle PO SCH (18:00)
[2019-04-29] MEDS ORDERED: Promethazine 25 MG TAB PO PRN (19:43)
--- NOTE | 2019-04-29 20:06 | PRG ---
DATE OF SERVICE: 04/29/2019 SUBJECTIVE: Ms. Sal had loose stools after starting a bowel prep last night. This was sent for stool samples and ultimately came back positive for C diff toxin and antigen. She has had intermittent diarrhea prior to admission. Her abdominal pain seems to be doing a bit better today; however, she continues to ask for morphine around the clock. OBJECTIVE: VITAL SIGNS: Temperature 98.1, pulse 97, blood pressure 134/74. GENERAL: She is in no acute distress. Alert and oriented x3. LUNGS: Clear to auscultation bilaterally. HEART: Regular rate and rhythm. ABDOMEN: Soft, tender throughout, out of proportion to her exam. She has no guarding. Bowel sounds are present. EXTREMITIES: No lower extremity edema. IMPRESSION: 1. Clostridium difficile colitis. It is unclear if this is truly just colonization or active Clostridium difficile colitis, but given the positive toxin on the testing and the possible colon thickening by CT scan, we will treat this as acute Clostridium difficile. Given that she had been on ceftriaxone for urinary tract infection as well, the Clostridium difficile could be a significant factor here. 2. Regarding her chronic epigastric and periumbilical recurrent pain, I think there is more of a functional component to this. Currently, her primary concern is just the pain medication. 3. Possible urinary tract infection. RECOMMENDATIONS: 1. Vancomycin 125 mg p.o. q.6 hours. 2. Canceled EGD and colonoscopy. EGD has been repeatedly negative in the past. She should get an outpatient colonoscopy for screening and follow up in the future, but I would not do this now given the new finding of positive C diff and no other obvious reason for colitis or colon thickening by CT. 3. Try to discontinue the other antibiotics as soon as feasible. 4. I will limit agents that will decrease bowel motility at this point. I will stop the hyoscyamine. Discontinue the ondansetron and foreign exchange trader to promethazine as needed for nausea. Also, I think it would be important start backing off the morphine. There might be more of a drug-seeking issue regarding the morphine, however and she is highly concerned about the prospect of reducing this dosing. Job ID: [id number]
[2019-04-30] MEDS: 1/2 NS w/KCL 20 mEq 1,000 ML IV SCH ×2 (00:55→06:12)
[2019-04-30] MEDS: Morphine 2 MG/ML SYRINGE SLOW IVP PRN ×3 (04:06→16:03)
[2019-04-30] MEDS: Vancomycin HCl 25 MG/ML Oral PO SCH ×3 (06:12→17:00)
[2019-04-30 06:20] LABS: #Basophils 0.1 thou/uL (0.0-0.2); #Eosinphils 0.4 thou/uL (0.0-0.7); #Lymphocytes 2.5 thou/uL (1.20-3.40); #Monocytes 0.7 thou/uL (0.11-0.59); %Basophils 0.6 % (0.0-1.0); %Eosinophils 2.9 % (0.0-10.0); %Lymphocytes 19.6 % (21.0-51.0); %Monocytes 5.3 % (0.0-10.0); %Neutrophils 71.6 % (42.0-75.0); Hemoglobin 10.4 g/dL (12.0-16.0); Mean Corpuscular HGB CONC 34.1 g/dL (32.0-36.0); Mean Corpuscular Hemoglobin 30.4 pg (27.0-31.0); Mean Corpuscular Volume 89.4 fL (78.0-98.0); Mean Platelet Volume 6.9 fL (7.4-10.4); Platelet Count 320 thou/uL (130-400); RBC Distribution Width 12.6 % (11.5-14.5); Red Blood Cell (RBC) Count 3.42 mill/uL (4.20-5.40); White Blood Cell (WBC) Count 12.6 thou/uL (4.8-10.8)
[2019-04-30 06:34] LABS: Anion Gap 11 mmol/L (10-20); BUN (Urea Nitrogen) 5 mg/dL (9.8-20.1); Calc. Creatinine Clearance 81 mL/min (70-130); Calcium 8.7 mg/dL (7.8-10.44); Carbon Dioxide 21 mmol/L (22-29); Chloride 111 mmol/L (98-107); Estimated GFR-MDRD Greater than 90; Glucose 112 mg/dL (70-105); Potassium 3.9 mmol/L (3.5-5.1); Sodium 139 mmol/L (136-145)
[2019-04-30] MEDS: Acetaminophen 325 MG TAB PO PRN (06:34)
[2019-04-30] MEDS: Trospium 20 MG TAB PO SCH ×2 (08:35→21:02)
[2019-04-30] MEDS: Simethicone Chewable 80 MG TAB PO SCH ×4 (08:36→21:02)
[2019-04-30] MEDS: Multivit, Therapeutic 1 TAB PO SCH (08:36)
[2019-04-30] MEDS: Saccharomyces boulardii 250 MG CAP PO SCH (08:36)
[2019-04-30] MEDS: Cyclobenzaprine 10 MG TAB PO PRN (13:20)
[2019-04-30] MEDS: HumaLOG 300 UNITS/3 ML VIAL SC PRN ×2 (14:14→16:56)
--- NOTE | 2019-04-30 16:46 | PRG ---
DATE OF SERVICE: 04/30/2019 SUBJECTIVE: Ms. Sal is feeling better today. She has had one bowel movement today. She is tolerating a clear liquid diet today. OBJECTIVE: VITAL SIGNS: Temperature 98.0, pulse 102, and blood pressure 110/52. GENERAL: She is in no acute distress. Alert and oriented x3. LUNGS: Clear to auscultation bilaterally. HEART: Regular rate and rhythm without murmur. ABDOMEN: Soft. Mild tenderness. Bowel sounds are present. EXTREMITIES: No lower extremity edema. LABORATORY DATA: White blood cell count 12.6, hemoglobin 10.4, and platelets are 320. Creatinine 0.64. IMPRESSION: 1. Clostridium difficile colitis. 2. Chronic recurrent abdominal pain, which is likely functional. RECOMMENDATIONS: 1. Complete a 14-day course of vancomycin 125 mg q.6 hours including which she has received here in the hospital. 2. Continue to try to start limiting the morphine. 3. Advance diet. 4. Ceftriaxone was discontinued today. 5. Anticipate discharge home when she is tolerating a more solid diet. I will sign off. Please call if GI can be of assistance. Job ID: [id number]
[2019-04-30] MEDS ORDERED: traMADol HCl 50 MG TAB PO PRN (17:24)
--- NOTE | 2019-04-30 20:43 | PDOC.HOSPP ---
- Subjective Subjective: Patient seen and examined for Abd pain. Feeling better. Abd pain gradually improving. No fever or chills. No new complaints. No overnight events - Objective Vital Signs & Weight: Vital Signs (12 hours) Temp Pulse Resp BP Pulse Ox 04/30/19 16:00 98.3 F 97 16 121/79 94 L 04/30/19 11:39 98.0 F 102 H 18 110/52 L 96 Weight Weight 120 lb I&O: 04/29/19 04/30/19 05/01/19 06:59 06:59 06:59 Intake Total 2440 2000 1320 Output Total 800 3425 1000 Balance 1640 -1425 320 Result Diagrams: 04/30/19 05:59 04/30/19 05:59 Additional Labs: Accuchecks 04/30/19 04/30/19 04/30/19 16:46 11:43 04:44 POC Glucose 177 H 167 H 113 H ROS - Review of Systems All systems: All other ROS were reviewed and found negative. Respiratory: denies: cough, dry, shortness of breath, hemoptysis, SOB with excertion, pleuritic pain, sputum, wheezing, other Cardiovascular: denies: chest pain, palpitations, orthopnea, paroxysmal noc. dyspnea, edema, light headedness, other - Medication Medications: Active Medications Generic Name Dose Route Start Last Admin Trade Name Freq PRN Reason Stop Dose Admin Acetaminophen 650 mg 04/27/19 07:59 04/30/19 06:34 Tylenol PO 650 mg Q4H PRN Administration Headache/Fever/Mild Pain (1-3) Clonidine 0.1 mg 04/28/19 08:35 04/28/19 10:22 Catapres PO 0.1 mg Q4H PRN Administration SBP Greater Than 180 Cyclobenzaprine HCl 5 mg 04/30/19 11:46 04/30/19 13:20 Flexeril PO 05/02/19 11:47 5 mg TIDPRN PRN Administration Muscle Spasm Potassium Chloride/Sodium Chloride 1,000 mls @ 50 mls/hr 04/28/19 08:45 04/30 06:12 1/2 Ns W/Kcl 20 Meq IV 1,000 mls .Q20H DEVORA Administration Insulin Human Lispro 0 units 04/27/19 09:25 04/30/19 16:56 Humalog SC 2 unit .MODERATE SLIDING SC PRN Administration Moderate Correctional Scale Labetalol HCl 10 mg 04/28/19 11:53 04/28/19 12:41 Normodyne SLOW IVP 10 mg Q4H PRN Administration Systolic BP > 180 Multivitamins 1 tab 04/29/19 09:00 04/30/19 08:36 Theragran PO 1 tab DAILY DEVORA Administration Saccharomyces Boulardii 250 mg 04/28/19 09:00 04/30/19 08:36 Florastor PO 250 mg DAILY DEVORA Administration Simethicone 80 mg 04/28/19 22:00 04/30/19 17:00 Mylicon Chewable PO 80 mg PCHS DEVORA Administration Trospium 20 mg 04/27/19 21:00 04/30/19 08:35 Trospium PO 20 mg BID DEVORA Administration Vancomycin HCl 125 mg 04/29/19 18:00 04/30/19 17:00 First Vancomycin PO 125 mg Q6HR DEVORA Administration - Exam NAD Heart: RRR, no rubs Respiratory: CTAB, no ronchi Gastrointestinal: soft, normal bowel sounds, tender to palpation (no rebound or guarding) Extremities: no edema Hosp A/P (1) Abdominal pain Code(s): R10.9 - UNSPECIFIED ABDOMINAL PAIN Status: Acute (2) Sepsis Code(s): A41.9 - SEPSIS, UNSPECIFIED ORGANISM (3) C. difficile colitis Code(s): A04.72 - ENTEROCOLITIS D/T CLOSTRIDIUM DIFFICILE, NOT SPCF RECUR (4) Catheter-associated urinary tract infection Code(s): T83.511A - I/I REACT D/T INDWELLING URETHRAL CATHETER, INIT; N39.0 - URINARY TRACT INFECTION, SITE NOT SPECIFIED Status: Acute (5) DM2 (diabetes mellitus, type 2) (6) Hypokalemia Code(s): E87.6 - HYPOKALEMIA (7) Physical deconditioning Code(s): R53.81 - OTHER MALAISE (8) Anxiety Code(s): F41.9 - ANXIETY DISORDER, UNSPECIFIED (9) Chronic back pain Code(s): M54.9 - DORSALGIA, UNSPECIFIED; G89.29 - OTHER CHRONIC PAIN - Plan continue antibiotics DC IV Ceftiaxone for UTI - Urine cultures remain negative. Will switch to short course of PO Atbx Cont PO Vancomycin for C diff with Probiotic Cont PRN Urine Cath Isolation for C diff EGD/Colon as outpt Switch IV Morphine to oral codeine
[2019-04-30] MEDS: Acetaminophen/Codeine 30-300mg Tablet PO PRN (21:02)
[2019-05-01] MEDS ORDERED: Morphine 2 MG/ML SYRINGE SLOW IVP SCH (00:15)
[2019-05-01] MEDS: Vancomycin HCl 25 MG/ML Oral PO SCH ×5 (00:47→23:12)
[2019-05-01] MEDS: Cyclobenzaprine 10 MG TAB PO PRN ×2 (02:09→08:24)
[2019-05-01] MEDS: Saccharomyces boulardii 250 MG CAP PO SCH (08:24)
[2019-05-01] MEDS: Trospium 20 MG TAB PO SCH ×2 (08:24→21:09)
[2019-05-01] MEDS: Multivit, Therapeutic 1 TAB PO SCH (08:24)
[2019-05-01] MEDS: Simethicone Chewable 80 MG TAB PO SCH ×4 (08:24→21:09)
[2019-05-01] MEDS ORDERED: Cefdinir 300 MG CAP PO SCH (09:30)
[2019-05-01] MEDS ORDERED: Acetaminophen/Codeine 30-300mg Tablet PO PRN (12:29)
[2019-05-01] MEDS: HumaLOG 300 UNITS/3 ML VIAL SC PRN (12:50)
[2019-05-01] MEDS: Morphine 2 MG/ML SYRINGE SLOW IVP PRN ×2 (12:50→23:12)
[2019-05-01] MEDS: Cefdinir 300 MG CAP PO SCH (21:09)
--- NOTE | 2019-05-01 22:27 | PDOC.HOSPP ---
- Subjective Subjective: Patient seen and examined for Colitis/UTI. Cont to have abd pain. No new complaints. No overnight events - Objective Vital Signs & Weight: Vital Signs (12 hours) Temp Pulse Resp BP Pulse Ox 05/01/19 20:00 98.6 F 97 20 149/84 H 92 L 05/01/19 16:00 98.2 F 115 H 18 114/75 96 05/01/19 12:00 98.9 F 107 H 16 117/80 96 Weight Weight 120 lb I&O: 04/30/19 05/01/19 05/02/19 06:59 06:59 06:59 Intake Total 1999 1320 1360 Output Total 3425 1000 1375 Balance -1425 320 -15 Result Diagrams: 04/30/19 05:59 04/30/19 05:59 Additional Labs: Accuchecks 05/01/19 05/01/19 05/01/19 20:35 16:22 11:23 POC Glucose 180 H 132 H 174 H 05/01/19 05:07 POC Glucose 106 ROS - Review of Systems All systems: All other ROS were reviewed and found negative. Respiratory: denies: cough, dry, shortness of breath, hemoptysis, SOB with excertion, pleuritic pain, sputum, wheezing, other Cardiovascular: denies: chest pain, palpitations, orthopnea, paroxysmal noc. dyspnea, edema, light headedness, other - Medication Medications: Active Medications Generic Name Dose Route Start Last Admin Trade Name Freq PRN Reason Stop Dose Admin Acetaminophen 650 mg 04/27/19 07:59 04/30/19 06:34 Tylenol PO 650 mg Q4H PRN Administration Headache/Fever/Mild Pain (1-3) Acetaminophen/Codeine Phosphate 1 tab 04/30/19 17:23 04/30/19 21:02 Tylenol #3 PO 1 tab Q4H PRN Administration Moderate Pain (4-6) Cefdinir 300 mg 05/01/19 21:00 05/01/19 21:09 Omnicef PO 300 mg BID DEVORA Administration Clonidine 0.1 mg 04/28/19 08:35 04/28/19 10:22 Catapres PO 0.1 mg Q4H PRN Administration SBP Greater Than 180 Cyclobenzaprine HCl 5 mg 04/30/19 11:46 05/01/19 08:24 Flexeril PO 05/02/19 11:47 5 mg TIDPRN PRN Administration Muscle Spasm Insulin Human Lispro 0 units 04/27/19 09:25 05/01/19 12:50 Humalog SC 2 unit .MODERATE SLIDING SC PRN Administration Moderate Correctional Scale Labetalol HCl 10 mg 04/28/19 11:53 04/28/19 12:41 Normodyne SLOW IVP 10 mg Q4H PRN Administration Systolic BP > 180 Morphine Sulfate 2 mg 05/01/19 12:06 05/01/19 12:50 Morphine SLOW IVP 05/02/19 12:07 2 mg Q8H PRN Administration Severe Pain (7-10) Multivitamins 1 tab 04/29/19 09:00 05/01/19 08:24 Theragran PO 1 tab DAILY DEVORA Administration Promethazine HCl 25 mg 04/29/19 19:43 05/01/19 10:46 Phenergan PO 25 mg Q6H PRN Administration Nausea/Vomiting Saccharomyces Boulardii 250 mg 04/28/19 09:00 05/01/19 08:24 Florastor PO 250 mg DAILY DEVORA Administration Simethicone 80 mg 04/28/19 22:00 05/01/19 21:09 Mylicon Chewable PO 80 mg PCHS DEVORA Administration Tramadol HCl 50 mg 04/30/19 17:24 05/01/19 10:48 Ultram PO 50 mg Q4H PRN Administration Moderate Pain (4-6) Trospium 20 mg 04/27/19 21:00 05/01/19 21:09 Trospium PO 20 mg BID DEVORA Administration Vancomycin HCl 125 mg 04/29/19 18:00 05/01/19 17:13 First Vancomycin PO 125 mg Q6HR DEVORA Administration - Exam Heart: RRR, no rubs Respiratory: CTAB, no ronchi Gastrointestinal: soft, tender to palpation (mainly in suprapubic region), voluntary guarding Hosp A/P (1) Abdominal pain Code(s): R10.9 - UNSPECIFIED ABDOMINAL PAIN Status: Acute Qualifiers: Abdominal location: generalized Qualified Code(s): R10.84 - Generalized abdominal pain (2) Sepsis Code(s): A41.9 - SEPSIS, UNSPECIFIED ORGANISM (3) C. difficile colitis Code(s): A04.72 - ENTEROCOLITIS D/T CLOSTRIDIUM DIFFICILE, NOT SPCF RECUR (4) Catheter-associated urinary tract infection Code(s): T83.511A - I/I REACT D/T INDWELLING URETHRAL CATHETER, INIT; N39.0 - URINARY TRACT INFECTION, SITE NOT SPECIFIED Status: Acute (5) DM2 (diabetes mellitus, type 2) (6) Hypokalemia Code(s): E87.6 - HYPOKALEMIA (7) Physical deconditioning Code(s): R53.81 - OTHER MALAISE (8) Anxiety Code(s): F41.9 - ANXIETY DISORDER, UNSPECIFIED (9) Chronic back pain Code(s): M54.9 - DORSALGIA, UNSPECIFIED; G89.29 - OTHER CHRONIC PAIN - Plan plan discussed w/ family Pain uncontrolled with Tylenol #3 Patient stable for discharge - however her abd pain is not well controlled. Abd pain is prob due to bladder spasm Cont PO Vancomycin/Probiotic for C diff Cont PRN Urine Cath for post void >400 ml EGD/Colon as outpt IV Morphine x 1 dose
[2019-05-02] MEDS: Vancomycin HCl 25 MG/ML Oral PO SCH ×2 (05:13→13:00)
[2019-05-02] MEDS: HumaLOG 300 UNITS/3 ML VIAL SC PRN ×2 (05:16→13:01)
[2019-05-02] MEDS: Acetaminophen/Codeine 30-300mg Tablet PO PRN ×2 (05:17→15:54)
[2019-05-02] MEDS: Multivit, Therapeutic 1 TAB PO SCH (10:11)
[2019-05-02] MEDS: Cefdinir 300 MG CAP PO SCH (10:11)
[2019-05-02] MEDS: Saccharomyces boulardii 250 MG CAP PO SCH (10:11)
[2019-05-02] MEDS: Trospium 20 MG TAB PO SCH (10:11)
[2019-05-02] MEDS: Simethicone Chewable 80 MG TAB PO SCH ×2 (10:11→13:00)
[2019-05-02 15:52] VITALS: BP 115/80; TEMP 98.4
--- NOTE | 2019-05-02 16:02 | DIS ---
DATE OF ADMISSION: 04/27/2019 DATE OF DISCHARGE: 05/02/2019 DISCHARGE DISPOSITION: Home. FOLLOWUP: 1. Follow up with Dr. Klever Mercado in 1 week. 2. Follow up with Dr. Chet Montenegro in 1 week. ALLERGIES: THE PATIENT IS ALLERGIC TO SULFA. DISCHARGE MEDICATIONS: 1. Vancomycin 125 mg every 6 hourly for next 10 more days. 2. Zanaflex as needed. 3. Florastor 250 mg daily. 4. Tylenol No. 3 as needed, #20 provided. 5. Humalog 20 units sliding scale. INPATIENT CONSULTANTS: 1. Gastroenterology, Dr. Royal. 2. Urology, Dr. Novoa. BRIEF HOSPITAL COURSE: The patient is a 58-year-old female with diabetes mellitus type 2, chronic urinary retention requiring self catheterization, presented to the emergency room with significant abdominal pain. Please refer to the history and physical for further details. The patient was admitted to the hospital with a diagnosis of abdominal pain of unclear etiology. Her WBC count on admission was 11.9. Urinalysis showed 0 to 3 wbc's with 2+ bacteria. CT scan of the abdomen and pelvis done in the emergency room with contrast showed nonspecific wall thickening of the colon. She was started on empiric antibiotics for possible UTI. However, a stool workup was positive for C diff, Clostridium difficile toxin positive. Rapid parasite test was negative. Stool WBC was negative. Stool culture showed normal enteric hudson. She was evaluated by Gastroenterology, Dr. Royal, who recommended to complete 14-day course of vancomycin. She was also seen by Urology, Dr. Novoa due to significant urinary retention and discomfort in the suprapubic area. Dr. Novoa recommended the patient to follow up with Dr. Montenegro as outpatient. She was started on trospium during this hospital stay. However, the patient stated that she has oxybutynin at home, which she would prefer to take. She does not have any diarrhea. Abdominal pain has somewhat slowed down. However, it is still present. The only way to control the pain was narcotics. She has been prescribed Tylenol No. 3, #20 for now due to significant pain from bladder spasm. She will follow up with Dr. Montenegro as outpatient. FINAL DIAGNOSES: 1. Abdominal pain, probably due to bladder spasms. 2. Sepsis secondary to Clostridium difficile colitis. 3. Catheter-associated urinary tract infection. Urine culture remained negative. The patient completed IV antibiotics during this hospital stay. Antibiotic duration was shortened due to active Clostridium difficile infection. 4. Diabetes mellitus, type 2. 5. Hypokalemia, replaced. 6. Anxiety. 7. Chronic low back pain, followed at [facility]. 8. Physical deconditioning. 9. Diarrhea secondary to Clostridium difficile colitis, resolved. Plan was discussed with the patient in detail. She stated understanding. Total time coordinating the discharge of this patient was [address] [facility] pharmacy and confirmed that vancomycin oral is in stock. Job ID: [id number]
== END 2019-05-02 16:31 | disposition home or self-care (01) | DRG 698 ==
LOC: ERS 20:45 → T4-A 04-27 03:07 → OBSVTOIN 04-27 03:07
PROVIDERS: ADMIT Family Medicine; ATTEND Family Medicine
DX: T83.511A Infection and inflammatory reaction due to indwelling urethral catheter, initial encounter (principal); A41.9 Sepsis, unspecified organism; A04.72 Enterocolitis due to Clostridium difficile, not specified as recurrent; N32.89 Other specified disorders of bladder; E11.9 Type 2 diabetes mellitus without complications; E87.6 Hypokalemia; F41.9 Anxiety disorder, unspecified; R53.81 Other malaise; M54.9 Dorsalgia, unspecified; G89.29 Other chronic pain; F32.9 Major depressive disorder, single episode, unspecified; Z90.49 Acquired absence of other specified parts of digestive tract; Z90.710 Acquired absence of both cervix and uterus; Z88.2 Allergy status to sulfonamides; Z79.4 Long term (current) use of insulin
CPT/HCPCS: 36415; 36416; 51701; 74177; 80048; 80053; 81003; 81015; 83605; 83630; 83690; 83735; 85025; 85610; 85730; 86140; 87045; 87046; 87081; 87086; 87324; 87328; 87329; 87449; 87493; 87899; 93005; 96361; 96365; 96375; 96376; A4353; J0500; J0696; J2270; J2405; J3480; J3490; Q0169; Q9966

== ENCOUNTER 2019-06-10 19:14 | Emergency (ER) | payer BC ==
[2019-06-10] MEDS ORDERED: Ondansetron PF 4 MG/2 ML Vial ONE ×2 (20:22→22:34)
[2019-06-10] MEDS ORDERED: Morphine 4 MG/ML VIAL ONE ×2 (20:22→22:34)
[2019-06-10 20:24] LABS: #Basophils 0.1 thou/uL (0.0-0.2); #Eosinphils 0.2 thou/uL (0.0-0.7); #Lymphocytes 1.9 thou/uL (1.20-3.40); #Monocytes 0.6 thou/uL (0.11-0.59); #Neutrophils 6.9 thou/uL (1.40-6.50); %Eosinophils 1.8 % (0.0-10.0); %Monocytes 6.1 % (0.0-10.0); %Neutrophils 71.2 % (42.0-75.0); Hemoglobin 8.7 g/dL (12.0-16.0); Mean Corpuscular HGB CONC 33.6 g/dL (32.0-36.0); Mean Corpuscular Hemoglobin 31.9 pg (27.0-31.0); Mean Corpuscular Volume 94.8 fL (78.0-98.0); Platelet Count 335 thou/uL (130-400); Red Blood Cell (RBC) Count 2.73 mill/uL (4.20-5.40); White Blood Cell (WBC) Count 9.7 thou/uL (4.8-10.8)
[2019-06-10 20:39] LABS: ALT (SGPT) 12 U/L (8-55); AST (SGOT) 15 U/L (5-34); Albumin 2.9 g/dL (3.5-5.0); Alkaline Phosphatase 91 U/L (40-150); Anion Gap 11 mmol/L (10-20); BUN (Urea Nitrogen) 30 mg/dL (9.8-20.1); Bilirubin, Total 0.5 mg/dL (0.2-1.2); Calc. Creatinine Clearance 0 mL/min (70-130); Calcium 8.6 mg/dL (7.8-10.44); Carbon Dioxide 18 mmol/L (22-29); Chloride 106 mmol/L (98-107); Estimated GFR-MDRD 64; Globulin 2.2 g/dL (2.4-3.5); Glucose 338 mg/dL (70-105); Potassium 3.9 mmol/L (3.5-5.1); Protein, Total 5.1 g/dL (6.0-8.3); Sodium 131 mmol/L (136-145)
[2019-06-10 21:01] LABS: BHCG - Serum Indeterminate (NEGATIVE); Pregs Control Background? CLEAR/WHITE (CLR/WHITE); Pregs Control Bar Appear? YES (CONTROL BAR)
[2019-06-10 23:35] LABS: Bacteria/HPF None Seen HPF (None Seen); Clarity Clear (Clear); Protein, Urine (Dipstick) 600 mg/dL (Neg-Trace); Squamous Epithelial 0-3 HPF (0-3)
[2019-06-10 23:37] LABS: Bilirubin Unable to Interpret (Negative); Blood, Urine Unable to Interpret (Negative); Glucose, Urine (Dipstick) Unable to Interpret mg/dL (Negative); Leukocyte Unable to Interpret Leu/uL (Negative); Nitrite Unable to Interpret (Negative); Urobilinogen UNABLE TO INTERPRET mg/dL (Less than 2)
[2019-06-10] MEDS ORDERED: cefTRIAXone\\ROCEPHIN 1 GM VIAL ONE (23:52)
== END 2019-06-11 00:17 | disposition home or self-care (01) ==
LOC: ERS 19:14
DX: R10.9 Unspecified abdominal pain (principal); R30.0 Dysuria; E11.9 Type 2 diabetes mellitus without complications; F41.9 Anxiety disorder, unspecified; F32.9 Major depressive disorder, single episode, unspecified; Z79.4 Long term (current) use of insulin; Z79.899 Other long term (current) drug therapy
CPT/HCPCS: 36415; 36416; 80053; 81003; 81015; 84702; 84703; 85025; 87086; 96361; 96365; 96374; 96375; 96376; J0696; J2270; J2405

== ENCOUNTER 2019-07-24 22:40 | Emergency (ER) | payer BC ==
[2019-07-24 23:18] LABS: #Basophils 0.1 thou/uL (0.0-0.2); #Eosinphils 0.2 thou/uL (0.0-0.7); #Monocytes 0.5 thou/uL (0.11-0.59); #Neutrophils 7.8 thou/uL (1.40-6.50); %Basophils 1.1 % (0.0-1.0); %Eosinophils 2.1 % (0.0-10.0); %Lymphocytes 18.6 % (21.0-51.0); %Neutrophils 73.2 % (42.0-75.0); Hemoglobin 11.1 g/dL (12.0-16.0); Mean Corpuscular HGB CONC 33.7 g/dL (32.0-36.0); Mean Corpuscular Hemoglobin 31.1 pg (27.0-31.0); Mean Corpuscular Volume 92.4 fL (78.0-98.0); Mean Platelet Volume 7.2 fL (7.4-10.4); Platelet Count 309 thou/uL (130-400); RBC Distribution Width 11.4 % (11.5-14.5); Red Blood Cell (RBC) Count 3.57 mill/uL (4.20-5.40); White Blood Cell (WBC) Count 10.7 thou/uL (4.8-10.8)
[2019-07-24] MEDS ORDERED: Metoclopramide HCl 10 MG/2 ML VIAL ONE (23:26)
[2019-07-24 23:39] LABS: ALT (SGPT) 10 U/L (8-55); AST (SGOT) 15 U/L (5-34); Alkaline Phosphatase 68 U/L (40-110); Anion Gap 14 mmol/L (10-20); BUN (Urea Nitrogen) 17 mg/dL (9.8-20.1); Bilirubin, Total 0.2 mg/dL (0.2-1.2); Calc. Creatinine Clearance 0 mL/min (70-130); Calcium 8.4 mg/dL (7.8-10.44); Carbon Dioxide 18 mmol/L (22-29); Chloride 106 mmol/L (98-107); Estimated GFR-MDRD 79; Globulin 2.5 g/dL (2.4-3.5); Glucose 213 mg/dL (70-105); Lipase Less than 4 U/L (8-78); Potassium 3.7 mmol/L (3.5-5.1); Protein, Total 5.5 g/dL (6.0-8.3); Sodium 134 mmol/L (136-145)
[2019-07-25 00:18] LABS: Bilirubin 2+ (Negative); Blood, Urine Negative (Negative); Clarity Clear (Clear); Glucose, Urine (Dipstick) 300 mg/dL (Negative); Leukocyte Negative Leu/uL (Negative); Nitrite 2+ (Negative); Protein, Urine (Dipstick) 300 mg/dL (Neg-Trace); RBC/HPF 0-3 HPF (0-3); Squamous Epithelial 0-3 HPF (0-3); Urobilinogen 6 mg/dL (Less than 2)
[2019-07-25 00:23] LABS: Bacteria/HPF 1+ HPF (None Seen)
--- NOTE | 2019-07-25 11:51 | CT ---
PRELIMINARY REPORT/[facility]/EMERGENCY AFTER HOURS PROCEDURE: PROCEDURE INFORMATION: Exam: CT Abdomen And Pelvis With Contrast Exam date and time: 07/25/2019 1:37 AM Clinical history: 58 years old, female; Abdominal pain; Generalized; Patient HX: 58 y/o F, with h/o d mii, gastroparesis, presents to ED C/O x 4 days of worsening abd pain. Surgical HX includes: Hysterec tristen. Biopsy of bladder December 2015. Left hip SX for FX S/P fall 2018 TECHNIQUE: Imaging protocol: Computed tomography of the abdomen and pelvis with intravenous contrast. COMPARISON: No relevant prior studies available. FINDINGS: Liver: Normal. Gallbladder and bile ducts: Gallbladder is surgically absent. Pancreas: Normal. Spleen: Normal. Adrenals: Normal. Kidneys and ureters: Normal. Stomach and bowel: Colonic diverticulosis. Minimal scattered colonic diverticulosis. Appendix: Appendix is normal. Intraperitoneal space: Unremarkable. No free air. No significant fluid collection. Vasculature: Atherosclerotic disease of the abdominal aorta and iliac arteries. Phleboliths in the pe lvis. Lymph nodes: Unremarkable. No enlarged lymph nodes. Bladder: Unremarkable as visualized. Reproductive: Uterus is surgically absent. The uterus is surgically absent. Bones/joints: Surgical changes of prior femoral neck fixation. Old, healed left inferior pubic ramus fracture. L3-L5 posterior fusion. Degenerative changes of the right hip and sacroiliac joints. Soft tissues: Normal. IMPRESSION: No acute abdominal or pelvic abnormality. Thank you for allowing us to participate in the care of your patient. Dictated and Authenticated by: Tony Cruz MD 07/25/2019 3:00 AM Central Time ([place] & [place]) FINAL REPORT CT ABDOMEN AND PELVIS WITH IV CONTRAST: IMPRESSION: I agree with the preliminary report given by Diamante. POS: [facility]
== END 2019-07-25 03:40 | disposition home or self-care (01) ==
LOC: ERS 22:40
DX: R10.13 Epigastric pain (principal); R10.817 Generalized abdominal tenderness; E11.9 Type 2 diabetes mellitus without complications; F41.9 Anxiety disorder, unspecified; Z79.899 Other long term (current) drug therapy; Z79.4 Long term (current) use of insulin
CPT/HCPCS: 51701; 74177; 80053; 81003; 81015; 82010; 83690; 84484; 85025; 93005; 96365; A4353; J2765; Q9966

== ENCOUNTER 2019-10-29 00:25 | Inpatient (IN) | payer BC ==
[2019-10-29 00:57] LABS: #Basophils 0.2 thou/uL (0.0-0.2); #Eosinphils 0.3 thou/uL (0.0-0.7); #Lymphocytes 2.9 thou/uL (1.20-3.40); #Monocytes 0.8 thou/uL (0.11-0.59); #Neutrophils 10.3 thou/uL (1.40-6.50); %Basophils 1.1 % (0.0-1.0); %Eosinophils 2.4 % (0.0-10.0); %Lymphocytes 19.9 % (21.0-51.0); %Monocytes 5.7 % (0.0-10.0); %Neutrophils 70.9 % (42.0-75.0); Hemoglobin 9.9 g/dL (12.0-16.0); Mean Corpuscular HGB CONC 31.8 g/dL (32.0-36.0); Mean Corpuscular Hemoglobin 32.5 pg (27.0-31.0); Mean Platelet Volume 7.3 fL (7.4-10.4); Platelet Count 370 thou/uL (130-400); RBC Distribution Width 12.6 % (11.5-14.5); Red Blood Cell (RBC) Count 3.04 mill/uL (4.20-5.40); White Blood Cell (WBC) Count 14.5 thou/uL (4.8-10.8)
[2019-10-29 01:18] LABS: ALT (SGPT) 8 U/L (8-55); AST (SGOT) 15 U/L (5-34); Albumin 3.2 g/dL (3.5-5.0); Alkaline Phosphatase 102 U/L (40-110); Anion Gap 15 mmol/L (10-20); BUN (Urea Nitrogen) 28 mg/dL (9.8-20.1); Bilirubin, Total 0.6 mg/dL (0.2-1.2); Calc. Creatinine Clearance 0 mL/min (70-130); Calcium 8.2 mg/dL (7.8-10.44); Carbon Dioxide 14 mmol/L (22-29); Chloride 110 mmol/L (98-107); Estimated GFR-MDRD 48; Globulin 2.8 g/dL (2.4-3.5); Glucose 387 mg/dL (70-105); Potassium 4.7 mmol/L (3.5-5.1); Sodium 134 mmol/L (136-145)
[2019-10-29] MEDS ORDERED: Morphine 4 MG/ML VIAL ONE (03:20)
[2019-10-29 04:47] LABS: Bilirubin Negative (Negative); Blood, Urine 1+ (Negative); Clarity Clear (Clear); Glucose, Urine (Dipstick) Greater than 1000 mg/dL (Negative); Leukocyte Negative Leu/uL (Negative); Nitrite Negative (Negative); Protein, Urine (Dipstick) 300 mg/dL (Neg-Trace); RBC/HPF 0-3 HPF (0-3); Squamous Epithelial None Seen HPF (0-3); Urobilinogen Normal mg/dL (Less than 2); WBC/HPF 0-3 HPF (0-3)
[2019-10-29 04:57] LABS: Bacteria/HPF 1+ HPF (None Seen)
[2019-10-29 05:56] VITALS: BMI 22.5
[2019-10-29] MEDS ORDERED: Ondansetron ODT 4 MG TAB SL PRN ×2 (06:12→08:07)
[2019-10-29] MEDS ORDERED: Ondansetron PF 4 MG/2 ML Vial IVP PRN ×2 (06:12→08:07)
[2019-10-29] MEDS ORDERED: Lactated Ringer's 1,000 ML IV SCH (06:15)
--- NOTE | 2019-10-29 07:33 | CT ---
PRELIMINARY REPORT/DIRECT RADIOLOGY/EMERGENCY AFTER HOURS PROCEDURE: EXAM: CT Abdomen and Pelvis Without Intravenous Contrast CLINICAL HISTORY: This is a 59 yo female with a pmh of IDDM2 and a history of constipation who presen ts to the ER with a cc of abdominal pain. Her husbands states that she has not had a BM in the past 3-4 days TECHNIQUE: Axial computed tomography images of the abdomen and pelvis without intravenous contrast. CONTRAST: None. COMPARISON: None provided. FINDINGS: LUNG BASES: No basilar airspace consolidation or pleural effusion. LIVER: Unremarkable. GALLBLADDER AND BILE DUCTS: Cholecystectomy clips in the gallbladder fossa. No ductal dilation. PANCREAS: Unremarkable. SPLEEN: Unremarkable. ADRENAL GLANDS: Unremarkable. KIDNEYS, URETERS, AND BLADDER: Unremarkable. No hydronephrosis or nephrolithiasis. No ureteral or cinthia dder calculi. STOMACH AND BOWEL: Multiple mildly dilated loops of small bowel measuring up to 2.6 cm. The distal s mall bowel is normal in caliber. Moderate fecal loading of the colon. No wall thickening. No CT evidence of colitis or acute diverticulitis. Colonic diverticulosis. APPENDIX: No CT evidence for appendicitis. PERITONEUM: No free fluid. No free air. LYMPH NODES: No lymphadenopathy. REPRODUCTIVE: The uterus and ovaries are absent. VASCULATURE: No aortic aneurysm. Atherosclerosis. ABDOMINAL WALL AND SOFT TISSUES: Unremarkable. BONES: No fracture or suspicious osseous abnormality. Paraspinal hardware from L3 S1. Multilevel de generative disc disease. Fixation pins in the proximal left femur. 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 IMPRESSION: Multiple mildly dilated loops of small bowel which may represent adynamic ileus or early/partial smal l bowel obstruction. Fecal loading of the colon. Scattered colonic diverticulosis with no evidence of diverticulitis. ELECTRONICALLY SIGNED BY: Frank Dumont MD Oct 29, 2019 2:56:27 AM PATIENT CARE ASSOCIATE FINAL REPORT ABDOMEN AND PELVIC CT SCAN WITHOUT IV CONTRAST: EMERGENCY AFTER HOURS EXAM TIME: 2:06 AM. DATE: 10/29/2019. Minimally dilated small bowel loops, nonspecific but certainly could represent some ileus. Moderate s olid fecal material in the colon. No evidence for an acute process. This report is in agreement with the preliminary report. Transcribed Date/Time: 10/29/2019 7:50 AM
--- NOTE | 2019-10-29 07:38 | RAD ---
EXAM: Left femur 2 views: HISTORY: Injury from a fall COMPARISON: None FINDINGS: 3 internal fixation screws stabilizing the femoral neck. Degenerative changes. No acute fracture or dislocation or other significant acute osseous abnormality. IMPRESSION: No significant acute process.
--- NOTE | 2019-10-29 07:39 | RAD ---
Exam: Abdomen one view: HISTORY: Pain FINDINGS: Postop changes of the lower lumbar spine with pedicle screws and intradiscal prosthesis. Considerable solid fecal material throughout the colon. Borderline size air and fluid small bowel loops. Status post cholecystectomy. No high-grade bowel obstruction. IMPRESSION: Minimally dilated small bowel loops, probably ileus. Extensive solid fecal material. Postop changes o f the lower lumbar spine.
[2019-10-29] MEDS ORDERED: Dextrose 50% Abboject 50 ML SYRINGE SLOW IVP PRN (08:07)
[2019-10-29] MEDS ORDERED: Sodium Chloride 0.65% Nasal 44 ML BOT EA NARE PRN (08:07)
[2019-10-29] MEDS ORDERED: HumaLOG 300 UNITS/3 ML VIAL SC PRN (08:07)
[2019-10-29] MEDS ORDERED: hydrALAZINE 20 MG/ML VIAL SLOW IVP PRN (08:07)
[2019-10-29] MEDS ORDERED: Acetaminophen 650 MG Suppository PR PRN (08:07)
[2019-10-29] MEDS ORDERED: Cepastat Lozenges 1 LOZ PO PRN (08:07)
[2019-10-29] MEDS ORDERED: Dextrose 5% in Water 1,000 ML IV PRN (08:07)
[2019-10-29] MEDS ORDERED: Bisacodyl 10 MG SUPP PR PRN (08:07)
[2019-10-29] MEDS ORDERED: Artificial Tears 18 DROP/0.9 ML EA EYE PRN (08:07)
--- NOTE | 2019-10-29 08:08 | RAD ---
SINGLE VIEW OF THE CHEST: COMPARISON: 08/13/2015. HISTORY: Chest pain and shortness of breath. FINDINGS: A single view of the chest shows a normal-size cardiomediastinal silhouette. There is an NG tube in the stomach. There is no evidence of consolidation, mass, or pleural effusion. Increased interstiti al lung markings are present. IMPRESSION: No evidence of acute cardiopulmonary disease. POS: CET
[2019-10-29] MEDS ORDERED: Fleet Enema 133 ML BOT PR SCH (08:15)
[2019-10-29] MEDS ORDERED: Non-Formulary Item 1 EACH (Insulin Detemir [Levemir] 10 UNIT) SQ SCH ×2 (09:00→21:00)
[2019-10-29] MEDS: Ketorolac Tromethamine 30 MG/ML VIAL IVP PRN ×2 (09:02→19:11)
--- NOTE | 2019-10-29 10:28 | CON ---
DATE OF CONSULTATION: 10/29/2019 CHIEF COMPLAINT: Abdominal pain. HISTORY OF PRESENT ILLNESS: This is a 59-year-old female with a 1-week history of mid abdominal pain associated with constipation. Her last bowel movement was 4 days ago. She is passing flatus. She has had several abdominal surgeries. PAST MEDICAL HISTORY: 1. Insulin-dependent diabetes. 2. Chronic constipation. 3. Fibromyalgia. 4. Anxiety. 5. Depression. PAST SURGICAL HISTORY: 1. L4-L5 fusion. 2. Cholecystectomy. 3. Hysterectomy. 4. Bladder biopsy. 5. Left hip surgery. MEDICATIONS: 1. NovoLog. 2. Trazodone. ALLERGIES: SULFA. PHYSICAL EXAMINATION: VITAL SIGNS: Temperature 98, pulse 96, blood pressure 164/97. She is a thin female. She is sitting on the toilet. Her NG tube has put minimal out. HEENT: No jaundice. LUNGS: Clear. HEART: Regular rate and rhythm. ABDOMEN: Soft, but slightly distended. Multiple healed surgical scars. No significant tenderness. LABORATORY AND DIAGNOSTIC DATA: She had a white count of 14.5, H and H of 9.9 and 31, platelet count 370. Electrolytes showed an elevated glucose at 387. Creatinine is 1.15. CT shows some dilated small bowel with excessive fecalization of the colon. ASSESSMENT: Fecal impaction versus partial small bowel obstruction. PLAN: Gastrografin small-bowel follow-through. Job ID: [id number]
--- NOTE | 2019-10-29 12:08 | RAD ---
Exam: Small bowel series: HISTORY: Partial small bowel obstruction Patient was given Gastrografin orally. Multiple images out to 1 hour 30 minutes were performed. Borderline mid small bowel dilatation but no evidence for obstruction. Contrast medium progresses int o the colon by 1 hour. Considerable solid fecal material throughout the colon. IMPRESSION: Unremarkable Gastrografin small bowel. No evidence for small bowel obstruction.
[2019-10-29] MEDS: Lactated Ringer's 1,000 ML IV SCH ×2 (12:50→17:36)
[2019-10-29] MEDS: Insulin Glargine 10 UNITS in Pre-Filled Syringe 1 EACH SC SCH ×2 (12:53→21:22)
[2019-10-29] MEDS: Enoxaparin Sodium 40 MG/0.4 ML SYRINGE SC SCH (12:54)
[2019-10-29] MEDS: Famotidine/PF 20 mg/2ml Vial SLOW IVP SCH (12:54)
[2019-10-29] MEDS: Morphine 2 MG/ML SYRINGE SLOW IVP PRN ×2 (12:55→21:22)
--- NOTE | 2019-10-29 14:38 | HP ---
PRIMARY CARE PHYSICIAN: [facility] Call admission. REASON FOR ADMISSION: Abdominal pain. HISTORY OF PRESENT ILLNESS: A 59-year-old female, who has underlying history of fibromyalgia as well as chronic constipation, who was brought to emergency room for abdominal pain. Yesterday, the patient had supper and subsequently she was trying to go to restroom and she was not able to pass her stool. Her tried to buy several different stool softener and the patient tried at home but without any success, and around 11 last night, the patient's pain has gotten worse. The patient's family member also tried to call nurse helpline from their insurance, who recommended to go to emergency room for evaluation. When the patient arrived emergency room, she had x-ray abdomen which showed loading of stool in her colon and subsequently, the patient also had CT abdomen and pelvis which suspected a partial small-bowel obstruction. General Surgery was notified and the patient required NG tube and mild intermittent suction. Subsequently, the patient was admitted to Medicine Service and General Surgery via consult. The patient also reported that her last bowel movement was about 4 days ago. She was passing gas. She did not have any nausea or vomiting. The patient is taking several pain medications, and she is not taking care of her diabetes as per the patient's . This morning when I saw her, at that time the patient was complaining of abdominal pain and subsequently, she underwent small-bowel x-ray which was negative for any obstruction. REVIEW OF SYSTEMS: CONSTITUTIONAL: Negative for weight loss or gain, ability to conduct usual activities. SKIN: Negative for rash, itching. EYES: Negative for double vision, pain. ENT/MOUTH: Negative for nose bleeding, neck stiffness, pain, tenderness. CARDIOVASCULAR: Negative for palpitations, dyspnea on exertion, orthopnea. RESPIRATORY: Negative for shortness of breath, wheezing, cough, hemoptysis, fever or night sweats. GASTROINTESTINAL: Negative for poor appetite, abdominal pain, heartburn, nausea , vomiting, constipation, or diarrhea. GENITOURINARY: Negative for urgency, frequency, dysuria, nocturia. MUSCULOSKELETAL: Negative for pain, swelling. NEUROLOGIC/PSYCHIATRIC: Negative for anxiety, depression. ALLERGY/IMMUNOLOGIC: Negative for skin rash, bleeding tendency. Please see my HPI for pertinent positives and negatives. All other review of systems reviewed and negative except as mentioned in HPI. PAST MEDICAL HISTORY: 1. Diabetes type 2. 2. Constipation. 3. Diarrhea. PAST PSYCHIATRIC HISTORY: 1. Anxiety. 2. Depression. 3. Fibromyalgia. PAST SURGICAL HISTORY: 1. L4-L5 fusion. 2. Cholecystectomy. 3. Hysterectomy. 4. Left hip surgery. SOCIAL HISTORY: The patient is , lives at home with her family. No history of tobacco, alcohol, or illicit drug abuse. ALLERGIES: SULFA DRUGS. CURRENT HOME MEDICATIONS: 1. Zanaflex 4 mg q.6 hourly p.r.n. 2. Humalog insulin as per sliding scale. 3. Levemir 40 units subcu b.i.d. FAMILY HISTORY: No strong family history of CAD, CVA or cancer EMERGENCY ROOM COURSE: The patient is given morphine 4 mg and IV fluid. PHYSICAL EXAMINATION: VITAL SIGNS: On arrival, blood pressure 152/70, pulse 105, respiratory rate 20, temperature 97.4, saturation 97% on room air, weight 59 kg. GENERAL: The patient is currently alert, awake, tachycardic, hypertensive. The patient appears older than her stated age. HEAD: Normocephalic and atraumatic. EYES: Pupils round and reactive to light. Extraocular muscles intact. ENT: Oropharynx within normal limits. Moist mucous membranes. No oral lesion. No pharyngeal erythema. No exudate. NECK: Supple. No JVD. No meningeal signs of irritation. LUNGS: Clear to auscultation without any rhonchi or rales. CARDIAC: S1, S2 regular. Slight tachycardia. No murmur. No gallop. No rub. ABDOMEN: Soft. Tenderness noted. Bowel sounds present. No peritoneal sign. No guarding. No rigidity. EXTREMITIES: Upper extremities, passive movements of all joints are normal. Lower extremity, no edema. Good distal pulsation. SKIN: No skin rash. HEMATOLOGIC: No lymphadenopathy. PSYCHIATRIC: Normal affect. RADIOLOGICAL INVESTIGATION: Small-bowel x-ray unremarkable, no obstruction. Chest x-ray, no acute cardiopulmonary process. Femur x-ray, no acute process. Abdomen and pelvis CT scan showed fecal loading of large intestine and dilatation of proximal small bowel, suspected for partial small-bowel obstruction. SIGNIFICANT LABORATORY DATA: CBC: WBC 14.5, hemoglobin 9.9, platelet 370, MCV 102. BMP: Sodium 134, potassium 4.7, chloride 110, carbon dioxide 14, anion gap 15, BUN 28, creatinine 1.15, glucose 87, calcium 8.2. LFT: AST 15, ALT 8, alkaline phosphatase 102, albumin 3.2. Lactic acid 2.0. Urinalysis: Glucosuria and proteinuria. ASSESSMENT: 1. Abdominal pain, likely due to severe constipation. 2. Partial small-bowel obstruction suspected and ruled out. 3. Leukocytosis, macrocytic anemia. 4. Metabolic acidosis and mild dehydration. 5. Uncontrolled diabetes type 2. 6. Chronic low back pain. PLAN: We will resume at low dose of glargine insulin as per sliding scale protocol. We will ivf at at 120 mL/hour, Pepcid 20 mg IV b.i.d., Lovenox 40 mg subcu daily. We will repeat labs tomorrow. Plan of care discussed with the family member. We will start liquid diet and advance as tolerated. Physical Therapy consultation. DVT PROPHYLAXIS: Lovenox 40 mg subcu daily. GI PROPHYLAXIS: Pepcid 20 mg IV b.i.d. CODE STATUS: The patient is full code. The patient's is the surrogate decision maker. DISPOSITION PLAN: Based on clinical course, we are expecting the patient's stay in hospital more than 2 midnights. Plan of care discussed with the patient and her at bedside. Job ID: [id number] [facility]
[2019-10-29] MEDS: HumaLOG 300 UNITS/3 ML VIAL SC PRN (17:36)
[2019-10-30] MEDS: Ketorolac Tromethamine 30 MG/ML VIAL IVP PRN ×3 (01:01→16:25)
[2019-10-30] MEDS: Lactated Ringer's 1,000 ML IV SCH ×3 (01:02→16:25)
[2019-10-30] MEDS: Morphine 2 MG/ML SYRINGE SLOW IVP PRN ×3 (02:32→20:04)
[2019-10-30 05:35] LABS: #Basophils 0.1 thou/uL (0.0-0.2); #Eosinphils 0.4 thou/uL (0.0-0.7); #Lymphocytes 2.6 thou/uL (1.20-3.40); #Monocytes 0.5 thou/uL (0.11-0.59); #Neutrophils 5.4 thou/uL (1.40-6.50); %Basophils 1.2 % (0.0-1.0); %Eosinophils 4.4 % (0.0-10.0); %Lymphocytes 28.8 % (21.0-51.0); %Monocytes 5.3 % (0.0-10.0); %Neutrophils 60.3 % (42.0-75.0); Hemoglobin 8.1 g/dL (12.0-16.0); Mean Corpuscular HGB CONC 32.2 g/dL (32.0-36.0); Mean Platelet Volume 7.1 fL (7.4-10.4); Platelet Count 281 thou/uL (130-400); RBC Distribution Width 12.2 % (11.5-14.5); Red Blood Cell (RBC) Count 2.45 mill/uL (4.20-5.40); White Blood Cell (WBC) Count 8.9 thou/uL (4.8-10.8)
[2019-10-30 05:52] LABS: Anion Gap 8 mmol/L (10-20); BUN (Urea Nitrogen) 18 mg/dL (9.8-20.1); Calc. Creatinine Clearance 80 mL/min (70-130); Calcium 7.7 mg/dL (7.8-10.44); Carbon Dioxide 19 mmol/L (22-29); Chloride 116 mmol/L (98-107); Estimated GFR-MDRD Greater than 90; Glucose 74 mg/dL (70-105); Potassium 3.7 mmol/L (3.5-5.1); Sodium 139 mmol/L (136-145)
[2019-10-30 06:32] LABS: Hemoglobin A1c 4.5 % (4.0-6.0)
[2019-10-30] MEDS: Enoxaparin Sodium 40 MG/0.4 ML SYRINGE SC SCH (08:35)
[2019-10-30] MEDS: Insulin Glargine 10 UNITS in Pre-Filled Syringe 1 EACH SC SCH ×2 (08:36→20:03)
[2019-10-30] MEDS: Famotidine/PF 20 mg/2ml Vial SLOW IVP SCH (08:56)
--- NOTE | 2019-10-30 10:27 | PDOC.HOSPP ---
- Subjective Encounter Date: 10/30/19 Encounter Time: 09:00 Subjective: Patient seen and examined. No new complaints. No overnight events - Objective Vital Signs & Weight: Vital Signs (12 hours) Temp Pulse Resp BP BP Pulse Ox 10/30/19 07:57 99 F 88 94 H 167/87 H 94 L 10/30/19 04:00 98.3 F 84 20 151/81 H 95 10/30/19 00:00 98.2 F 88 20 160/83 H 97 Weight Weight 123 lb 6 oz I&O: 10/29/19 10/30/19 10/31/19 06:59 06:59 06:59 Intake Total 1680 Output Total 650 Balance 1030 Result Diagrams: 10/30/19 05:13 10/30/19 05:13 Additional Labs: Accuchecks 10/30/19 10/30/19 10/30/19 08:04 06:41 05:07 POC Glucose 84 123 H 90 10/30/19 10/29/19 10/29/19 01:32 20:26 15:31 POC Glucose 102 180 H 232 H 10/29/19 12:21 POC Glucose 254 H Hospitalist ROS - Review of Systems Eyes: denies: pain, vision change, conjunctivae inflammation, eyelid inflammation, redness, other ENT: denies: ear pain, ear discharge, nose pain, nose discharge, nose congestion , mouth pain, mouth swelling, throat pain, throat swelling, other Respiratory: denies: cough, dry, shortness of breath, hemoptysis, SOB with excertion, pleuritic pain, sputum, wheezing, other Cardiovascular: denies: chest pain, palpitations, orthopnea, paroxysmal noc. dyspnea, edema, light headedness, other Gastrointestinal: denies: nausea, vomiting, abdominal pain, diarrhea, constipation, melena, hematochezia, other Genitourinary: denies: dysuria, frequency, incontinence, hematuria, retention, other Musculoskeletal: denies: neck pain, shoulder pain, arm pain, back pain, hand pain, leg pain, foot pain, other - Medication Medications: Active Medications Generic Name Dose Route Start Last Admin Trade Name Freq PRN Reason Stop Dose Admin Enoxaparin Sodium 40 mg 10/29/19 09:00 10/30/19 08:35 Lovenox SC 40 mg 0900 DEVORA Administration Famotidine 20 mg 10/29/19 09:00 10/30/19 08:56 Pepcid SLOW IVP 20 mg Q24HR DEVORA Administration Lactated Ringer's 1,000 mls @ 120 mls/hr 10/29/19 08:15 10/30/19 08:56 Lactated Ringer's IV 1,000 mls .[id number] DEVORA Administration Insulin Glargine 10 units/ 0.1 mls @ 0 mls/hr 10/29/19 09:00 10/30/19 08:36 Miscellaneous Medication SC 0.1 mls QAM DEVORA Administration Insulin Glargine 10 units/ 0.1 mls @ 0 mls/hr 10/29/19 21:00 10/29/19 21:22 Miscellaneous Medication SC 0.1 mls QPM DEVORA Administration Insulin Human Lispro 0 units 10/29/19 08:07 10/29/19 17:36 Humalog SC 4 unit .MODERATE SLIDING SC PRN Administration Moderate Correctional Scale Ketorolac Tromethamine 15 mg 10/29/19 08:12 10/30/19 08:35 Toradol IVP 11/03/19 08:13 15 mg Q6H PRN Administration Moderate Pain (4-6) Morphine Sulfate 2 mg 10/29/19 08:12 10/30/19 02:32 Morphine SLOW IVP 2 mg Q4H PRN Administration Severe Pain (7-10) Ondansetron HCl 4 mg 10/29/19 08:07 10/30/19 10:23 Zofran IVP 4 mg Q6H PRN Administration Nausea/Vomiting - Exam General Appearance: NAD, awake alert Eye: PERRL, anicteric sclera ENT: normocephalic atraumatic, no oropharyngeal lesions Neck: supple, symmetric, no JVD, no thyromegaly Heart: RRR, no murmur, no gallops, no rubs Respiratory: CTAB, no wheezes, no rales, no ronchi Gastrointestinal: soft, non-tender, non-distended, normal bowel sounds Extremities: no cyanosis, no clubbing, no edema Skin: normal turgor, no lesions Neurological: no focal deficits Musculoskeletal: normal tone, normal strength Psychiatric: normal affect, normal behavior Hosp A/P (1) Anxiety and depression Code(s): F41.9 - ANXIETY DISORDER, UNSPECIFIED; F32.9 - MAJOR DEPRESSIVE DISORDER, SINGLE EPISODE, UNSPECIFIED Status: Chronic (2) Partial small bowel obstruction Status: Ruled-out (3) Constipation Code(s): K59.00 - CONSTIPATION, UNSPECIFIED Status: Resolved (4) Chronic back pain Code(s): M54.9 - DORSALGIA, UNSPECIFIED; G89.29 - OTHER CHRONIC PAIN Status: Chronic (5) Diabetes type 2, controlled Code(s): E11.9 - TYPE 2 DIABETES MELLITUS WITHOUT COMPLICATIONS Status: Chronic (6) Hypertension Code(s): I10 - ESSENTIAL (PRIMARY) HYPERTENSION Status: Chronic (7) Physical deconditioning Code(s): R53.81 - OTHER MALAISE Status: Chronic (8) Leucocytosis Code(s): D72.829 - ELEVATED WHITE BLOOD CELL COUNT, UNSPECIFIED Status: Resolved (9) Macrocytic anemia Code(s): D53.9 - NUTRITIONAL ANEMIA, UNSPECIFIED Status: Chronic - Plan old records reviewed/req, plan discussed w/ family 10/30/19 add folic acid and vitamin B12 advance diet as tolerated xray abdomen if needed discussed with continue PT/OT medication reviewed and continue to provide symptomatic treatment and supportive care
[2019-10-30 15:48] LABS: Bacteria/HPF 4+ HPF (None Seen); Bilirubin Negative (Negative); Blood, Urine Trace (Negative); Clarity Turbid (Clear); Glucose, Urine (Dipstick) Normal (Negative); Leukocyte 250 Leu/uL (Negative); Nitrite Negative (Negative); Protein, Urine (Dipstick) 200 mg/dL (Neg-Trace); RBC/HPF 0-3 HPF (0-3); Squamous Epithelial None Seen HPF (0-3); Urobilinogen Normal mg/dL (Less than 2); WBC/HPF 21-50 HPF (0-3)
[2019-10-30 15:50] LABS: Urine Culture Reflex Yes Yes
[2019-10-30] MEDS: Oxybutynin 5 MG TAB PO SCH (17:18)
[2019-10-31] MEDS: Lactated Ringer's 1,000 ML IV SCH (01:06)
[2019-10-31] MEDS: Ketorolac Tromethamine 30 MG/ML VIAL IVP PRN ×2 (01:08→08:18)
[2019-10-31] MEDS: Morphine 2 MG/ML SYRINGE SLOW IVP PRN ×2 (02:44→10:47)
[2019-10-31] MEDS: Cyanocobalamin (Vitamin B-12) 1,000 MCG TAB PO SCH (08:20)
[2019-10-31] MEDS: Oxybutynin 5 MG TAB PO SCH ×3 (08:20→20:31)
[2019-10-31] MEDS: Famotidine 20 MG TAB PO SCH ×2 (08:20→20:31)
[2019-10-31] MEDS: Enoxaparin Sodium 40 MG/0.4 ML SYRINGE SC SCH (08:20)
[2019-10-31] MEDS: cefTRIAXone\\ROCEPHIN 1 GM in Sodium Chloride 0.9% 100 ML IVPB SCH (08:20)
[2019-10-31] MEDS: Folic Acid 1 MG TAB PO SCH (08:20)
[2019-10-31] MEDS: Insulin Glargine 10 UNITS in Pre-Filled Syringe 1 EACH SC SCH (08:21)
[2019-10-31] MEDS ORDERED: Loperamide HCl 2 MG CAP PO PRN (09:12)
[2019-10-31] MEDS ORDERED: Diabetic Tussin 200 MG/10 ML UDCUP PO PRN (09:12)
[2019-10-31] MEDS ORDERED: Loratadine 10 MG TAB PO PRN (09:12)
[2019-10-31] MEDS ORDERED: Senokot S 8.6-50 MG TAB PO PRN (09:12)
[2019-10-31] MEDS ORDERED: Acetaminophen 500 MG TAB PO PRN (09:12)
[2019-10-31] MEDS ORDERED: Zolpidem Tartrate 5 MG TAB PO PRN (09:12)
[2019-10-31] MEDS: Metoprolol Tartrate 25 MG TAB PO SCH ×2 (10:49→20:31)
[2019-10-31] MEDS: HYDROcodone/Acetaminophen 5/325 mg Tablet PO PRN ×2 (11:42→17:11)
--- NOTE | 2019-10-31 14:27 | PDOC.HOSPP ---
- Subjective Encounter Date: 10/31/19 Encounter Time: 09:15 Subjective: Patient seen and examined. No new complaints. No overnight events - Objective Vital Signs & Weight: Vital Signs (12 hours) Temp Pulse Pulse Resp BP BP BP 10/31/19 11:56 98.5 F 73 16 109/64 10/31/19 10:17 98 156/80 H 10/31/19 07:49 98.4 F 98 16 156/80 H 10/31/19 04:00 98.1 F 99 16 138/76 Pulse Ox Pulse Ox 10/31/19 11:56 92 L 10/31/19 10:17 93 L 10/31/19 07:49 93 L 10/31/19 04:00 92 L Weight Weight 123 lb 6 oz I&O: 10/30/19 10/31/19 11/01/19 06:59 06:59 06:59 Intake Total 1680 Output Total 650 Balance 1030 Result Diagrams: 10/30/19 05:13 10/30/19 05:13 Additional Labs: Accuchecks 10/31/19 10/31/19 10/31/19 12:03 07:57 04:21 POC Glucose 111 H 90 80 10/31/19 10/30/19 10/30/19 00:36 20:06 15:57 POC Glucose 85 105 97 Hospitalist ROS - Review of Systems ENT: denies: ear pain, ear discharge, nose pain, nose discharge, nose congestion , mouth pain, mouth swelling, throat pain, throat swelling, other Respiratory: denies: cough, dry, shortness of breath, hemoptysis, SOB with excertion, pleuritic pain, sputum, wheezing, other Cardiovascular: denies: chest pain, palpitations, orthopnea, paroxysmal noc. dyspnea, edema, light headedness, other Gastrointestinal: denies: nausea, vomiting, abdominal pain, diarrhea, constipation, melena, hematochezia, other Genitourinary: denies: dysuria, frequency, incontinence, hematuria, retention, other Musculoskeletal: denies: neck pain, shoulder pain, arm pain, back pain, hand pain, leg pain, foot pain, other - Medication Medications: Active Medications Generic Name Dose Route Start Last Admin Trade Name Freq PRN Reason Stop Dose Admin Hydrocodone Bitart/Acetaminophen 1 tab 10/31/19 09:12 10/31/19 11:42 Tate 5/325 PO 1 tab Q4H PRN Administration Moderate Pain (4-6) Cyanocobalamin 1,000 mcg 10/31/19 09:00 10/31/19 08:20 Vitamin B-12 PO 1,000 mcg DAILY [facility] Administration Enoxaparin Sodium 40 mg 10/29/19 09:00 10/31/19 08:20 Lovenox SC 40 mg 0900 [facility] Administration Famotidine 20 mg 10/31/19 09:00 10/31/19 08:20 Pepcid PO 20 mg BID [facility] Administration Folic Acid 1 mg 10/31/19 09:00 10/31/19 08:20 Folvite PO 1 mg DAILY [facility] Administration Hydralazine HCl 10 mg 10/29/19 08:07 10/30/19 12:39 Apresoline SLOW IVP 10 mg Q4H PRN Administration SBP > 180 and HR < 70 Ceftriaxone Sodium 1 gm/ 100 mls @ 200 mls/hr 10/31/19 08:00 10/31/19 08:20 Sodium Chloride IVPB 100 mls 0800 [facility] Administration Insulin Human Lispro 0 units 10/29/19 08:07 10/29/19 17:36 Humalog SC 4 unit .MODERATE SLIDING SC PRN Administration Moderate Correctional Scale Ketorolac Tromethamine 15 mg 10/29/19 08:12 10/31/19 08:18 Toradol IVP 11/03/19 08:13 15 mg Q6H PRN Administration Moderate Pain (4-6) Metoprolol Tartrate 25 mg 10/31/19 09:00 10/31/19 10:49 Lopressor PO 25 mg BID [facility] Administration Morphine Sulfate 2 mg 10/29/19 08:12 10/31/19 10:47 Morphine SLOW IVP 2 mg Q4H PRN Administration Severe Pain (7-10) Ondansetron HCl 4 mg 10/29/19 08:07 10/30/19 10:23 Zofran IVP 4 mg Q6H PRN Administration Nausea/Vomiting Oxybutynin Chloride 5 mg 10/30/19 21:00 10/31/19 13:46 Ditropan PO 5 mg TID [facility] Administration - Exam General Appearance: NAD, awake alert Eye: PERRL, anicteric sclera ENT: normocephalic atraumatic, no oropharyngeal lesions Neck: supple, symmetric, no JVD Heart: RRR, no murmur, no gallops, no rubs Respiratory: CTAB, no wheezes, no rales, no ronchi Gastrointestinal: soft, non-tender, non-distended, normal bowel sounds Extremities: no cyanosis, no clubbing Skin: normal turgor, no lesions Neurological: no focal deficits Musculoskeletal: normal tone, normal strength Psychiatric: normal affect, normal behavior Hosp A/P (1) UTI (urinary tract infection) Status: Acute (2) Anxiety and depression Code(s): F41.9 - ANXIETY DISORDER, UNSPECIFIED; F32.9 - MAJOR DEPRESSIVE DISORDER, SINGLE EPISODE, UNSPECIFIED Status: Chronic (3) Partial small bowel obstruction Status: Ruled-out (4) Constipation Code(s): K59.00 - CONSTIPATION, UNSPECIFIED Status: Resolved (5) Chronic back pain Code(s): M54.9 - DORSALGIA, UNSPECIFIED; G89.29 - OTHER CHRONIC PAIN Status: Chronic (6) Diabetes type 2, controlled Code(s): E11.9 - TYPE 2 DIABETES MELLITUS WITHOUT COMPLICATIONS Status: Chronic (7) Hypertension Code(s): I10 - ESSENTIAL (PRIMARY) HYPERTENSION Status: Chronic (8) Physical deconditioning Code(s): R53.81 - OTHER MALAISE Status: Chronic (9) Leucocytosis Code(s): D72.829 - ELEVATED WHITE BLOOD CELL COUNT, UNSPECIFIED Status: Resolved (10) Macrocytic anemia Code(s): D53.9 - NUTRITIONAL ANEMIA, UNSPECIFIED Status: Chronic - Plan old records reviewed/req, continue antibiotics 10/30/19 add folic acid and vitamin B12 advance diet as tolerated xray abdomen if needed discussed with continue PT/OT medication reviewed and continue to provide symptomatic treatment and supportive care 10/31/19 continue rocephin follow urine culture DC IVF pt wants snu evaluation start PT/OT
[2019-10-31] MEDS: Insulin Glargine 5 UNITS in Pre-Filled Syringe 1 EACH SC SCH (20:32)
[2019-10-31] MEDS ORDERED: Insulin Glargine 8 UNITS in Pre-Filled Syringe 1 EACH SC SCH (21:00)
[2019-11-01] MEDS: HYDROcodone/Acetaminophen 5/325 mg Tablet PO PRN ×2 (07:55→15:28)
[2019-11-01] MEDS: Oxybutynin 5 MG TAB PO SCH ×3 (07:57→21:02)
[2019-11-01] MEDS: Famotidine 20 MG TAB PO SCH ×2 (07:57→21:02)
[2019-11-01] MEDS: Enoxaparin Sodium 40 MG/0.4 ML SYRINGE SC SCH (07:57)
[2019-11-01] MEDS: Cyanocobalamin (Vitamin B-12) 1,000 MCG TAB PO SCH (07:57)
[2019-11-01] MEDS: Metoprolol Tartrate 25 MG TAB PO SCH ×2 (07:57→21:02)
[2019-11-01] MEDS: Insulin Glargine 5 UNITS in Pre-Filled Syringe 1 EACH SC SCH ×2 (07:58→21:02)
[2019-11-01] MEDS: Folic Acid 1 MG TAB PO SCH (07:58)
[2019-11-01] MEDS: cefTRIAXone\\ROCEPHIN 1 GM in Sodium Chloride 0.9% 100 ML IVPB SCH (08:02)
[2019-11-01] MEDS ORDERED: Insulin Glargine 8 UNITS in Pre-Filled Syringe 1 EACH SC SCH (09:00)
--- NOTE | 2019-11-01 11:09 | PDOC.HOSPP ---
- Subjective Encounter Date: 11/01/19 Encounter Time: 08:50 Subjective: Patient seen and examined. No new complaints. No overnight events - Objective Vital Signs & Weight: Vital Signs (12 hours) Temp Pulse Resp BP BP Pulse Ox 11/01/19 07:52 174/89 H 11/01/19 07:39 98.6 F 83 19 179/96 H 92 L Weight Weight 123 lb 6 oz I&O: 10/31/19 11/01/19 11/02/19 06:59 06:59 06:59 Intake Total 360 Output Total 500 Balance -140 Result Diagrams: 10/30/19 05:13 10/30/19 05:13 Additional Labs: Accuchecks 11/01/19 10/31/19 10/31/19 04:43 20:23 16:57 POC Glucose 107 144 H 102 10/31/19 12:03 POC Glucose 111 H Hospitalist ROS - Review of Systems ENT: denies: ear pain, ear discharge, nose pain, nose discharge, nose congestion , mouth pain, mouth swelling, throat pain, throat swelling, other Respiratory: denies: cough, dry, shortness of breath, hemoptysis, SOB with excertion, pleuritic pain, sputum, wheezing, other Cardiovascular: denies: chest pain, palpitations, orthopnea, paroxysmal noc. dyspnea, edema, light headedness, other Gastrointestinal: denies: nausea, vomiting, abdominal pain, diarrhea, constipation, melena, hematochezia, other Genitourinary: denies: dysuria, frequency, incontinence, hematuria, retention, other Musculoskeletal: denies: neck pain, shoulder pain, arm pain, back pain, hand pain, leg pain, foot pain, other - Medication Medications: Active Medications Generic Name Dose Route Start Last Admin Trade Name Freq PRN Reason Stop Dose Admin Hydrocodone Bitart/Acetaminophen 1 tab 10/31/19 09:12 11/01/19 07:55 [place] 5/325 PO 1 tab Q4H PRN Administration Moderate Pain (4-6) Cyanocobalamin 1,000 mcg 10/31/19 09:00 11/01/19 07:57 Vitamin B-12 PO 1,000 mcg DAILY DEVORA Administration Enoxaparin Sodium 40 mg 10/29/19 09:00 11/01/19 07:57 Lovenox SC 40 mg 0900 DEVORA Administration Famotidine 20 mg 10/31/19 09:00 11/01/19 07:57 Pepcid PO 20 mg BID DEVORA Administration Folic Acid 1 mg 10/31/19 09:00 11/01/19 07:58 Folvite PO 1 mg DAILY DEVORA Administration Hydralazine HCl 10 mg 10/29/19 08:07 10/30/19 12:39 Apresoline SLOW IVP 10 mg Q4H PRN Administration SBP > 180 and HR < 70 Insulin Glargine 5 units/ 0.05 mls @ 0 mls/hr 10/31/19 21:00 10/31/19 20:32 Miscellaneous Medication SC 0.05 mls HS DEVORA Administration Insulin Glargine 5 units/ 0.05 mls @ 0 mls/hr 11/01/19 09:00 11/01/19 07:58 Miscellaneous Medication SC 0.05 mls QAM DEVORA Administration Insulin Human Lispro 0 units 10/29/19 08:07 10/29/19 17:36 Humalog SC 4 unit .MODERATE SLIDING SC PRN Administration Moderate Correctional Scale Ketorolac Tromethamine 15 mg 10/29/19 08:12 10/31/19 08:18 Toradol IVP 11/03/19 08:13 15 mg Q6H PRN Administration Moderate Pain (4-6) Metoprolol Tartrate 25 mg 10/31/19 09:00 11/01/19 07:57 Lopressor PO 25 mg BID DEVORA Administration Morphine Sulfate 2 mg 10/29/19 08:12 10/31/19 10:47 Morphine SLOW IVP 2 mg Q4H PRN Administration Severe Pain (7-10) Ondansetron HCl 4 mg 10/29/19 08:07 10/30/19 10:23 Zofran IVP 4 mg Q6H PRN Administration Nausea/Vomiting Oxybutynin Chloride 5 mg 10/30/19 21:00 11/01/19 07:57 Ditropan PO 5 mg TID [facility] Administration - Exam General Appearance: NAD, awake alert Eye: PERRL, anicteric sclera ENT: normocephalic atraumatic, no oropharyngeal lesions Neck: supple, symmetric, no JVD Heart: RRR, no murmur, no gallops Respiratory: CTAB, no wheezes, no rales Gastrointestinal: soft, non-tender, non-distended, normal bowel sounds Extremities: no cyanosis, no clubbing, no edema Skin: normal turgor, no lesions Neurological: no focal deficits Musculoskeletal: normal tone, normal strength Psychiatric: normal affect, normal behavior Hosp A/P (1) UTI (urinary tract infection) Status: Acute (2) Anxiety and depression Code(s): F41.9 - ANXIETY DISORDER, UNSPECIFIED; F32.9 - MAJOR DEPRESSIVE DISORDER, SINGLE EPISODE, UNSPECIFIED Status: Chronic (3) Partial small bowel obstruction Status: Ruled-out (4) Constipation Code(s): K59.00 - CONSTIPATION, UNSPECIFIED Status: Resolved (5) Chronic back pain Code(s): M54.9 - DORSALGIA, UNSPECIFIED; G89.29 - OTHER CHRONIC PAIN Status: Chronic (6) Diabetes type 2, controlled Code(s): E11.9 - TYPE 2 DIABETES MELLITUS WITHOUT COMPLICATIONS Status: Chronic (7) Hypertension Code(s): I10 - ESSENTIAL (PRIMARY) HYPERTENSION Status: Chronic (8) Physical deconditioning Code(s): R53.81 - OTHER MALAISE Status: Chronic (9) Leucocytosis Code(s): D72.829 - ELEVATED WHITE BLOOD CELL COUNT, UNSPECIFIED Status: Resolved (10) Macrocytic anemia Code(s): D53.9 - NUTRITIONAL ANEMIA, UNSPECIFIED Status: Chronic - Plan old records reviewed/req, PT/OT, licensed master social worker 10/30/19 add folic acid and vitamin B12 advance diet as tolerated xray abdomen if needed discussed with continue PT/OT medication reviewed and continue to provide symptomatic treatment and supportive care 10/31/19 continue rocephin follow urine culture DC IVF pt wants snu evaluation start PT/OT 11/01/19 change rocephin to po cipro continue PT/OT discharge planning discussed with human services case manager
[2019-11-01] MEDS: Ciprofloxacin 500 MG TAB PO SCH (21:02)
[2019-11-02] MEDS: Ciprofloxacin 500 MG TAB PO SCH ×2 (05:23→19:20)
[2019-11-02] MEDS: HYDROcodone/Acetaminophen 5/325 mg Tablet PO PRN ×3 (05:23→19:21)
[2019-11-02] MEDS: Famotidine 20 MG TAB PO SCH ×2 (08:40→20:03)
[2019-11-02] MEDS: Insulin Glargine 5 UNITS in Pre-Filled Syringe 1 EACH SC SCH ×2 (08:41→20:03)
[2019-11-02] MEDS: Folic Acid 1 MG TAB PO SCH (08:41)
[2019-11-02] MEDS: Metoprolol Tartrate 25 MG TAB PO SCH ×2 (08:41→20:03)
[2019-11-02] MEDS: Oxybutynin 5 MG TAB PO SCH ×3 (08:41→20:03)
[2019-11-02] MEDS: Enoxaparin Sodium 40 MG/0.4 ML SYRINGE SC SCH (08:41)
[2019-11-02] MEDS: Cyanocobalamin (Vitamin B-12) 1,000 MCG TAB PO SCH (08:41)
--- NOTE | 2019-11-02 12:18 | DIS ---
DATE OF ADMISSION: 10/29/2019 DATE OF DISCHARGE: 11/02/2019 PRIMARY CARE PHYSICIAN: Dr. Klever Mercado. DISCHARGE DISPOSITION: senior living home. PRIMARY DISCHARGE DIAGNOSES: 1. Severe constipation, resolved. 2. partial small-bowel obstruction, ruled out. 3. Urinary tract infection. 4. Physical deconditioning. SECONDARY DISCHARGE DIAGNOSES: 1. Physical deconditioning. 2. Diabetes type 2. 3. Chronic low back pain. 4. History of urinary retention, requiring self catheterization. 5. Macrocytic anemia. 6. Anxiety and depression. PRIMARY PROCEDURE/OPERATION: None. RADIOLOGIST INVESTIGATION: Abdomen and pelvis CT scan showed colon with stool and final report suspected for partial small-bowel obstruction. Abdomen x -ray also showed similar finding. Femur x-ray was negative for any fracture. Chest x-ray negative for any acute process. Small bowel x-ray negative for any obstruction. SIGNIFICANT LABORATORY DATA: WBC 8.9, hemoglobin 8.1, platelet 281, MCV 102. BMP; sodium 137, potassium 3.7, BUN 18, creatinine 0.66, calcium 7.7, hemoglobin A1c 4.5. Urinalysis suggestive of UTI. Urine culture grew E coli and Klebsiella. DISCHARGE MEDICATIONS: Zanaflex 4 mg q.6 hourly p.r.n., Ditropan 5 mg p.o. t.i.d., Cipro 500 mg p.o. b.i.d. for 5 days, vitamin B12 1000 mcg p.o. daily, Pepcid 20 mg p.o. b.i.d., folic acid 1 mg p.o. daily, Humalog insulin 5 units subcu before meals p.r.n., Levemir 5 units subcu b.i.d., and metoprolol 25 mg p.o. b.i.d. CONTRAINDICATION: None. CODE STATUS: Full code. INPATIENT TECHNOLOGY APPLICATIONS TEACHER: Dr. James was consulted while in the hospital for suspected partial small-bowel obstruction. TEST RESULTS PENDING ON DISCHARGE: None. ALLERGIES: SULFA DRUGS. DISCHARGE PLAN: Posthospital, the patient will follow up with primary care physician in one week. HOSPITAL COURSE: A 59-year-old female, who has underlying history of chronic low back pain and she has physical deconditioning as well as she has intermittent abdominal pain. She was admitted to the hospital for severe abdominal pain which was pretty much generalized. In the emergency room, CT abdomen and pelvis showed severe constipation as well as finding suspicious for partial small-bowel obstruction. General surgery recommended to admit this patient under Medicine Team. We treated her conservatively with NG tube with low intermittent suction and p.o. and hydration. General Surgery was also following while in hospital and they did small-bowel x-ray and based on small bowel x-ray, partial small-bowel obstruction completely ruled out. The patient was having severe constipation that was contributing to her presentation. Her constipation was treated with Fleet enema and stool softener. Her urinalysis was also consistent with UTI and that is why we treated her with Rocephin and on discharge based on culture result, we changed to Cipro. This patient has chronic physical deconditioning and the patient expressed her wish to go to [facility] for [facility] and that is why with help of case advocate, we are arranging her swing bed versus [facility]. Once arrangement will be done, then, the patient is medically stable for discharge. The patient needs to avoid narcotics. The patient is to take stool softener periodically to prevent severe constipation. For macrocytic anemia, we added folic acid and vitamin B12 therapy. For hypertension, we added metoprolol. While in hospital, we noted that her blood sugar was running low and that is why we have to reduce her insulin dose while in hospital as well. At this point, the patient is medically stable for discharge. I have seen and examined at bedside today. PHYSICAL EXAMINATION: VITAL SIGNS: Currently, temperature 98.5, pulse rate 75, respiratory rate 18, saturation 92%, and blood pressure 156/79. Weight 123 pounds. GENERAL: The patient is currently alert and awake, in no acute distress. HEENT: Head, normocephalic and atraumatic. Eyes; pupils are round and reactive to light. Extraocular muscle intact. ENT; oropharynx within normal limits. Moist mucous membranes. No oral lesion. No pharyngeal erythema. No exudate. NECK: Supple. No JVD. No meningeal signs of irritation. LUNGS: Clear to auscultation without any rhonchi or rales. CARDIAC: S1 and S2, regular. No murmur. No gallop. No rub. ABDOMEN: Soft, bowel sounds present, nontender, nondistended. No organomegaly. No mass. EXTREMITIES: No edema. Good distal pulsation. SKIN: No skin rash. HEMATOLOGIC: No lymphadenopathy. NEUROLOGIC: Nonfocal examination. Overall, the patient is medically stable for discharge today. Job ID: [id number] MTDD
--- NOTE | 2019-11-02 13:47 | PDOC.HOSPP ---
- Subjective Encounter Date: 11/02/19 Encounter Time: 08:00 - Objective Vital Signs & Weight: Vital Signs (12 hours) Temp Pulse Resp BP Pulse Ox 11/02/19 08:12 98.5 F 75 18 156/79 H 92 L 11/02/19 08:00 92 L Weight Weight 123 lb 6 oz I&O: 11/01/19 11/02/19 11/03/19 06:59 06:59 06:59 Intake Total 360 240 Output Total 500 1300 Balance -140 -1060 Result Diagrams: 10/30/19 05:13 10/30/19 05:13 Additional Labs: Accuchecks 11/02/19 11/02/19 11/01/19 12:12 04:24 20:10 POC Glucose 105 93 161 H 11/01/19 16:06 POC Glucose 97 Hospitalist ROS - Review of Systems ENT: denies: ear pain, ear discharge, nose pain, nose discharge, nose congestion , mouth pain, mouth swelling, throat pain, throat swelling, other Respiratory: denies: cough, dry, shortness of breath, hemoptysis, SOB with excertion, pleuritic pain, sputum, wheezing, other Cardiovascular: denies: chest pain, palpitations, orthopnea, paroxysmal noc. dyspnea, edema, light headedness, other Gastrointestinal: denies: nausea, vomiting, abdominal pain, diarrhea, constipation, melena, hematochezia, other Genitourinary: denies: dysuria, frequency, incontinence, hematuria, retention, other Musculoskeletal: denies: neck pain, shoulder pain, arm pain, back pain, hand pain, leg pain, foot pain, other - Medication Medications: Active Medications Generic Name Dose Route Start Last Admin Trade Name Freq PRN Reason Stop Dose Admin Hydrocodone Bitart/Acetaminophen 1 tab 10/31/19 09:12 11/02/19 05:23 [place] 5/325 PO 1 tab Q4H PRN Administration Moderate Pain (4-6) Ciprofloxacin 500 mg 11/01/19 20:00 11/02/19 05:23 Cipro PO 500 mg 06,1999 DEVORA Administration Cyanocobalamin 1,000 mcg 10/31/19 09:00 11/02/19 08:41 Vitamin B-12 PO 1,000 mcg DAILY DEVORA Administration Enoxaparin Sodium 40 mg 10/29/19 09:00 11/02/19 08:41 Lovenox SC 40 mg 0900 DEVORA Administration Famotidine 20 mg 10/31/19 09:00 11/02/19 08:40 Pepcid PO 20 mg BID DEVORA Administration Folic Acid 1 mg 10/31/19 09:00 11/02/19 08:41 Folvite PO 1 mg DAILY DEVORA Administration Hydralazine HCl 10 mg 10/29/19 08:07 10/30/19 12:39 Apresoline SLOW IVP 10 mg Q4H PRN Administration SBP > 180 and HR < 70 Insulin Glargine 5 units/ 0.05 mls @ 0 mls/hr 10/31/19 21:00 11/01/19 21:02 Miscellaneous Medication SC 0.05 mls HS DEVORA Administration Insulin Glargine 5 units/ 0.05 mls @ 0 mls/hr 11/01/19 09:00 11/02/19 08:41 Miscellaneous Medication SC 0.05 mls QAM DEVORA Administration Insulin Human Lispro 0 units 10/29/19 08:07 10/29/19 17:36 Humalog SC 4 unit .MODERATE SLIDING SC PRN Administration Moderate Correctional Scale Metoprolol Tartrate 25 mg 10/31/19 09:00 11/02/19 08:41 Lopressor PO 25 mg BID DEVORA Administration Ondansetron HCl 4 mg 10/29/19 08:07 10/30/19 10:23 Zofran IVP 4 mg Q6H PRN Administration Nausea/Vomiting Oxybutynin Chloride 5 mg 10/30/19 21:00 11/02/19 08:41 Ditropan PO 5 mg TID DEVORA Administration - Exam General Appearance: NAD, awake alert Eye: PERRL, anicteric sclera ENT: normocephalic atraumatic, no oropharyngeal lesions Neck: supple, symmetric, no JVD Heart: RRR, no murmur, no gallops, no rubs Respiratory: CTAB, no wheezes, no rales, no ronchi Gastrointestinal: soft, non-tender, non-distended, normal bowel sounds Extremities: no cyanosis, no clubbing, no edema Skin: normal turgor, no lesions Neurological: no focal deficits Musculoskeletal: normal tone, normal strength Psychiatric: normal affect, normal behavior Hosp A/P (1) UTI (urinary tract infection) Status: Acute (2) Anxiety and depression Code(s): F41.9 - ANXIETY DISORDER, UNSPECIFIED; F32.9 - MAJOR DEPRESSIVE DISORDER, SINGLE EPISODE, UNSPECIFIED Status: Chronic (3) Partial small bowel obstruction Status: Ruled-out (4) Constipation Code(s): K59.00 - CONSTIPATION, UNSPECIFIED Status: Resolved (5) Chronic back pain Code(s): M54.9 - DORSALGIA, UNSPECIFIED; G89.29 - OTHER CHRONIC PAIN Status: Chronic (6) Diabetes type 2, controlled Code(s): E11.9 - TYPE 2 DIABETES MELLITUS WITHOUT COMPLICATIONS Status: Chronic (7) Hypertension Code(s): I10 - ESSENTIAL (PRIMARY) HYPERTENSION Status: Chronic (8) Physical deconditioning Code(s): R53.81 - OTHER MALAISE Status: Chronic (9) Leucocytosis Code(s): D72.829 - ELEVATED WHITE BLOOD CELL COUNT, UNSPECIFIED Status: Resolved (10) Macrocytic anemia Code(s): D53.9 - NUTRITIONAL ANEMIA, UNSPECIFIED Status: Chronic - Plan old records reviewed/req 10/30/19 add folic acid and vitamin B12 advance diet as tolerated xray abdomen if needed discussed with continue PT/OT medication reviewed and continue to provide symptomatic treatment and supportive care 10/31/19 continue rocephin follow urine culture DC IVF pt wants snu evaluation start PT/OT 11/01/19 change rocephin to po cipro continue PT/OT discharge planning discussed with case liner 11/02/19 possible DC today see discharge sandee
[2019-11-03] MEDS: Ciprofloxacin 500 MG TAB PO SCH ×2 (05:45→20:10)
[2019-11-03] MEDS: HYDROcodone/Acetaminophen 5/325 mg Tablet PO PRN ×3 (07:12→20:11)
[2019-11-03] MEDS: Cyanocobalamin (Vitamin B-12) 1,000 MCG TAB PO SCH (09:08)
[2019-11-03] MEDS: Folic Acid 1 MG TAB PO SCH (09:08)
[2019-11-03] MEDS: Famotidine 20 MG TAB PO SCH ×2 (09:08→20:10)
[2019-11-03] MEDS: Metoprolol Tartrate 25 MG TAB PO SCH ×2 (09:09→20:10)
[2019-11-03] MEDS: Oxybutynin 5 MG TAB PO SCH ×3 (09:09→20:11)
[2019-11-03] MEDS: Enoxaparin Sodium 40 MG/0.4 ML SYRINGE SC SCH (09:10)
[2019-11-03] MEDS: Insulin Glargine 5 UNITS in Pre-Filled Syringe 1 EACH SC SCH ×2 (09:10→20:10)
--- NOTE | 2019-11-03 17:28 | PRG ---
DATE OF SERVICE: 11/03/2019 SUBJECTIVE: The patient is seen and examined at the bedside. She does not have much complaints to offer. OBJECTIVE: VITAL SIGNS: Blood pressure is 153/78, pulse is 79, temperature is 98.1, respirations 18, O2 saturation is 95% on room air. HEENT: Her head is atraumatic, normocephalic. Eyes; pupils are responding to light properly. Sclerae are nonicteric. LUNGS: Clear. HEART: S1, S2 normal. No S3. No S4. ABDOMEN: Soft, nontender, nondistended. Bowel sounds are present. EXTREMITIES: No clubbing, cyanosis, or edema. NEUROLOGICAL: She follows my commands. She moves her all 4 extremities. LABORATORY DATA: Glycemia is ranging from 133 to 171. IMPRESSION: 1. Urinary tract infection. 2. Partial small-bowel obstruction, which was ruled out. 3. Constipation. 4. Diabetes mellitus type 2, controlled. 5. Hypertension. 6. Physical deconditioning. 7. Anemia. 8. Anxiety and depression. PLAN: We are waiting for insurance approval for skilled, for PT and OT. For now, we will continue those two and transfer her as soon as she is approved. Job ID: [id number]
[2019-11-03] MEDS: Docusate 100 MG CAP PO SCH (20:10)
[2019-11-04] MEDS: HYDROcodone/Acetaminophen 5/325 mg Tablet PO PRN ×2 (03:07→08:15)
[2019-11-04] MEDS: HumaLOG 300 UNITS/3 ML VIAL SC PRN ×2 (05:31→12:38)
[2019-11-04] MEDS: Ciprofloxacin 500 MG TAB PO SCH (05:31)
[2019-11-04] MEDS: Metoprolol Tartrate 25 MG TAB PO SCH (08:15)
[2019-11-04] MEDS: Oxybutynin 5 MG TAB PO SCH (08:15)
[2019-11-04] MEDS: Famotidine 20 MG TAB PO SCH (08:15)
[2019-11-04] MEDS: Folic Acid 1 MG TAB PO SCH (08:15)
[2019-11-04] MEDS: Cyanocobalamin (Vitamin B-12) 1,000 MCG TAB PO SCH (08:15)
[2019-11-04] MEDS: Docusate 100 MG CAP PO SCH (08:15)
[2019-11-04] MEDS: Enoxaparin Sodium 40 MG/0.4 ML SYRINGE SC SCH (08:16)
[2019-11-04] MEDS: Insulin Glargine 5 UNITS in Pre-Filled Syringe 1 EACH SC SCH (08:57)
[2019-11-04 16:25] VITALS: BP 148/83; TEMP 98.4
--- NOTE | 2019-11-04 19:09 | DIS ---
DATE OF ADMISSION: 10/29/2019 DATE OF DISCHARGE: 11/04/2019 DISCHARGE DISPOSITION: Home with Home Healthcare. The patient was seen and examined on the day of discharge. Denies any new complaints. No chest pain, shortness of breath, or palpitations reported. DISCHARGE MEDICATIONS: 1. Ciprofloxacin 500 mg twice daily for 5 more dose. 2. Folic acid 1 mg daily. 3. Humalog 5 units 3 times a day. 4. Levemir 5 units b.i.d. 5. Metoprolol tartrate 25 mg b.i.d. 6. Oxybutynin 5 mg 3 times a day. 7. Zanaflex 4 mg as directed. INPATIENT CONSULT: General Surgery, Dr. James. BRIEF HOSPITAL COURSE: Please refer to the discharge summary dated November 02, 2019, for details on the hospitalization. FINAL DIAGNOSES: 1. Abdominal pain secondary to severe constipation, resolved. 2. Partial small-bowel obstruction ruled out. 3. Catheter associated Escherichia coli urinary tract infection. 4. present on admission. 5. Physical deconditioning. 6. Diabetes mellitus type 2. 7. Chronic low back pain. 8. Macrocytic anemia. 9. Anxiety. 10. Depression, mild, stable. 11. Hyponatremia. 12. Metabolic acidosis. Job ID: [id number]
== END 2019-11-04 14:45 | disposition home health service (06) | DRG 392 ==
LOC: ERS 00:25 → T4-A 03:32
PROVIDERS: ADMIT Internal Medicine; ATTEND Internal Medicine
DX: K59.09 Other constipation (principal); T83.511A Infection and inflammatory reaction due to indwelling urethral catheter, initial encounter; N39.0 Urinary tract infection, site not specified; E87.2 Acidosis; Z98.1 Arthrodesis status; B96.20 Unspecified Escherichia coli [E. coli] as the cause of diseases classified elsewhere; M54.5 Low back pain; F32.9 Major depressive disorder, single episode, unspecified; F41.9 Anxiety disorder, unspecified; D53.9 Nutritional anemia, unspecified; M79.7 Fibromyalgia; E86.0 Dehydration; E11.65 Type 2 diabetes mellitus with hyperglycemia; D72.829 Elevated white blood cell count, unspecified; Z90.49 Acquired absence of other specified parts of digestive tract; Z90.710 Acquired absence of both cervix and uterus; Z79.899 Other long term (current) drug therapy; Z79.4 Long term (current) use of insulin; Z88.2 Allergy status to sulfonamides
CPT/HCPCS: 36415; 36416; 71045; 74018; 74176; 74250; 80048; 80053; 81001; 81003; 81015; 83036; 83605; 85025; 87077; 87086; 87186; 96361; 96374; J0360; J0696; J1650; J1815; J1885; J2270; J2405; J3490; S0028

== ENCOUNTER 2019-11-24 18:57 | Observation (INO) | payer BC ==
[~2019-11-24 18:57] MED LIST changes: -ISOVUE-370 76%-LOCM 1 ML ONE; +Iopamidol-370 76% 500 ML 1 ML ONE
[2019-11-24 20:04] LABS: #Basophils 0.1 thou/uL (0.0-0.2); #Eosinphils 0.2 thou/uL (0.0-0.7); #Lymphocytes 2.1 thou/uL (1.20-3.40); #Monocytes 0.5 thou/uL (0.11-0.59); #Neutrophils 7.9 thou/uL (1.40-6.50); %Basophils 0.6 % (0.0-1.0); %Eosinophils 1.4 % (0.0-10.0); %Lymphocytes 19.7 % (21.0-51.0); %Monocytes 4.8 % (0.0-10.0); %Neutrophils 73.4 % (42.0-75.0); Hemoglobin 11.9 g/dL (12.0-16.0); Mean Corpuscular HGB CONC 34.3 g/dL (32.0-36.0); Mean Corpuscular Hemoglobin 31.7 pg (27.0-31.0); Mean Corpuscular Volume 92.3 fL (78.0-98.0); Mean Platelet Volume 7.7 fL (7.4-10.4); Platelet Count 223 thou/uL (130-400); RBC Distribution Width 11.9 % (11.5-14.5); Red Blood Cell (RBC) Count 3.77 mill/uL (4.20-5.40); White Blood Cell (WBC) Count 10.7 thou/uL (4.8-10.8)
[2019-11-24 20:25] LABS: ALT (SGPT) 9 U/L (8-55); AST (SGOT) 14 U/L (5-34); Albumin 3.1 g/dL (3.5-5.0); Alkaline Phosphatase 71 U/L (40-110); Anion Gap 16 mmol/L (10-20); BUN (Urea Nitrogen) 19 mg/dL (9.8-20.1); Bilirubin, Total 0.5 mg/dL (0.2-1.2); Calc. Creatinine Clearance 0 mL/min (70-130); Calcium 8.3 mg/dL (7.8-10.44); Carbon Dioxide 15 mmol/L (22-29); Chloride 111 mmol/L (98-107); Estimated GFR-MDRD 71; Globulin 2.7 g/dL (2.4-3.5); Glucose 124 mg/dL (70-105); Lipase Less than 4 U/L (8-78); Potassium 3.1 mmol/L (3.5-5.1); Protein, Total 5.8 g/dL (6.0-8.3); Sodium 139 mmol/L (136-145)
--- NOTE | 2019-11-24 21:43 | CT ---
CT abdomen and pelvis: 11/24/2019 COMPARISON: 10/29/2019, 07/25/2019, 04/26/2019, 11/23/2017, 01/07/2016, 08/13/2015, 06/25/2014, 08/22/2013 , 11/11/2012, 09/16/2012 HISTORY: Abdominal pain TECHNIQUE: Axial CT imaging at 5 mm intervals from lung bases through pubic symphysis with IV contras t. Coronal and sagittal reformatted imaging obtained. FINDINGS: The visualized lung bases are unremarkable. Cholecystectomy clips are noted. No free intrap eritoneal air. The lack of oral contrast limits assessment of the bowel. The liver, spleen, pancreas, adrenal glands , and kidneys appear grossly unremarkable. The appendix is unremarkable. There is no evidence for large or small bowel obstruction. The colonic wall is mildly prominent but the colon is decompressed and thus, not well assessed. This likely simply reflects a collapsed state of the colon. No convincing evidence for colitis. Scattered atherosclerotic calcification of the abdominal aorta and its branches. No lymphadenopathy i n the abdomen or pelvis. Postoperative hardware of the lower lumbar spine and proximal left femur again noted. No acute osseous abnormality. There is an old fracture of the inferior pubic ramus on th e left. IMPRESSION: No acute findings appreciated.
[2019-11-24] MEDS ORDERED: Morphine 4 MG/ML VIAL ONE (21:53)
[2019-11-24 22:18] LABS: Clarity Clear (Clear); Squamous Epithelial 0-3 HPF (0-3)
[2019-11-24] MEDS ORDERED: Haloperidol Lactate 5 MG/ML VIAL ONE (22:23)
[2019-11-24 22:24] LABS: Bacteria/HPF 1+ HPF (None Seen)
[2019-11-24 22:30] LABS: Leukocyte Unable to Interpret Leu/uL (Negative); Nitrite Unable to Interpret (Negative); Protein, Urine (Dipstick) Unable to Interpret mg/dL (Neg-Trace)
[2019-11-24 22:31] LABS: Bilirubin Unable to Interpret (Negative); Blood, Urine Unable to Interpret (Negative); Glucose, Urine (Dipstick) Unable to Interpret mg/dL (Negative); Urobilinogen UNABLE TO INTERPRET mg/dL (Less than 2); Yeast-Budding 1+ HPF (None Seen)
[2019-11-24] MEDS ORDERED: Sodium Chloride 0.9% 100 ML ONE (22:44)
[2019-11-24] MEDS ORDERED: cefTRIAXone\\ROCEPHIN 1 GM VIAL ONE (22:44)
[2019-11-25] MEDS ORDERED: Acetaminophen 650 MG Suppository PR PRN (01:38)
[2019-11-25] MEDS ORDERED: Dextrose 5% in Water 1,000 ML IV PRN (01:49)
[2019-11-25] MEDS ORDERED: HumaLOG 300 UNITS/3 ML VIAL SC PRN (01:49)
[2019-11-25] MEDS ORDERED: Dextrose 50% Abboject 50 ML SYRINGE SLOW IVP PRN (01:49)
--- NOTE | 2019-11-25 02:27 | HP ---
TIME OF ASSESSMENT: 0100. CHIEF COMPLAINT: Abdominal pain. HISTORY OF PRESENT ILLNESS: Ms. Sal is a 59-year-old woman, presenting to the emergency department with persisting abdominal pain for the last 6-7 days. The patient states the pain has been 8/10 in severity and initially, it was in the epigastric region, for the last 2 days, the pain is not involving the suprapubic region. The patient reports having diarrhea yesterday. Today, she did not have any loose stools, but vomited twice. Denies having any fevers or chills, but does feel generally unwell. The patient reports some dysuria. She self catheterizes. Denies having any cough or hemoptysis. No chest pain, palpitations, or shortness of breath. No headaches or dizziness. All other review of systems are negative. PAST MEDICAL HISTORY: 1. Diabetes type 2. 2. Fibromyalgia. 3. Anxiety. 4. Depression. PAST SURGICAL HISTORY: 1. L4-L5 fusion. 2. Cholecystectomy. 3. Hysterectomy. 4. Left hip surgery. 5. Bladder biopsy. SOCIAL HISTORY: The patient denies any tobacco use, alcohol consumption, or illicit drug use. ALLERGIES: SULFA. CURRENT MEDICATIONS: 1. Fiasp U-100 insulin. 2. Tizanidine. PHYSICAL EXAMINATION: GENERAL: The patient appears thin, well developed and in no acute distress. VITAL SIGNS: Temperature 98.3, pulse 98, blood pressure 151/86, respirations 16, O2 saturation 94% on room air. HEENT: Normocephalic and atraumatic. Pupils are equal, round, reactive to light. Sclerae without icterus. Oropharynx is clear. NECK: Supple. No lymphadenopathy. LUNGS: Clear to auscultation bilaterally without wheezes, rales, or rhonchi. CARDIAC: Regular rate and rhythm without audible murmurs, rubs, or gallops. ABDOMEN: Soft. Suprapubic discomfort with palpation. No guarding or rigidity. No renal angle tenderness. EXTREMITIES: No lower leg swelling or edema. NEUROLOGIC: Alert and oriented x3. SKIN: Warm and dry. LABORATORY DATA: White count 10.7, hemoglobin 11.9, hematocrit 34.8, platelets 223. Sodium 139, potassium 3.1, BUN 19, creatinine 0.82, GFR 71, glucose 124, lactic acid 1.5, calcium 8.3, alkaline phosphatase 71. Urinalysis done was dark orange in color. She had 7 to 10 red blood cells, 11 to 20 white blood cells, 1+ bacteria, 11 to 20 hyaline casts, 1+ urine yeast, 3+ protein, sulfosalicylic acid. IMAGING DATA: CT abdomen and pelvis done showed no acute findings appreciated. IMPRESSION AND PLAN: Ms. Sal is a 59-year-old woman, presenting with abdominal discomfort for 7 days that has now localized to the suprapubic region. In the emergency department, she was started on IV antibiotic for urinary tract infection versus pyelonephritis. CT of abdomen and pelvis was unremarkable. Full blood count unremarkable and lactic acid normal. The patient does have clinical signs and symptoms of urinary tract infection. She does have blood in the urine and states she self catheterizes. We will obtain renal ultrasound. May benefit from Urology consult. Vital signs are stable. We plan to admit her to medical observation. She does have a history of diabetes; therefore, we will initiate insulin sliding scale and monitor blood glucose. We will resume home medications once verified. Deep vein thrombosis prophylaxis with mechanical SCDs. No pharmacoprophylaxis given blood in the urine. The patient is ambulatory. Code status full. Surrogate decision maker is her , Javan Sal. Case to be discussed further with attending for further recommendations. Job ID: [id number]
[2019-11-25] MEDS: Sodium Chloride 0.9% 1,000 ML IV SCH ×3 (03:22→22:03)
[2019-11-25] MEDS: Acetaminophen 325 MG TAB PO PRN ×4 (03:22→22:02)
[2019-11-25 04:33] VITALS: BMI 21.8
[2019-11-25 05:16] LABS: Anion Gap 11 mmol/L (10-20); BUN (Urea Nitrogen) 16 mg/dL (9.8-20.1); Calc. Creatinine Clearance 66 mL/min (70-130); Calcium 7.6 mg/dL (7.8-10.44); Carbon Dioxide 18 mmol/L (22-29); Chloride 115 mmol/L (98-107); Estimated GFR-MDRD 75; Glucose 90 mg/dL (70-105); Sodium 141 mmol/L (136-145)
[2019-11-25] MEDS: cefTRIAXone\\ROCEPHIN 2 GM in Sodium Chloride 0.9% 100 ML IVPB SCH ×2 (05:25→22:02)
[2019-11-25 06:07] LABS: #Basophils 0.1 thou/uL (0.0-0.2); #Eosinphils 0.2 thou/uL (0.0-0.7); #Lymphocytes 2.8 thou/uL (1.20-3.40); #Monocytes 0.5 thou/uL (0.11-0.59); #Neutrophils 4.6 thou/uL (1.40-6.50); %Basophils 1.4 % (0.0-1.0); %Eosinophils 2.2 % (0.0-10.0); %Lymphocytes 33.9 % (21.0-51.0); %Monocytes 5.8 % (0.0-10.0); %Neutrophils 56.7 % (42.0-75.0); Hemoglobin 9.2 g/dL (12.0-16.0); Mean Corpuscular HGB CONC 34.2 g/dL (32.0-36.0); Mean Corpuscular Hemoglobin 32.2 pg (27.0-31.0); Mean Corpuscular Volume 94.1 fL (78.0-98.0); Mean Platelet Volume 7.8 fL (7.4-10.4); Platelet Count 220 thou/uL (130-400); RBC Distribution Width 11.8 % (11.5-14.5); Red Blood Cell (RBC) Count 2.86 mill/uL (4.20-5.40); White Blood Cell (WBC) Count 8.2 thou/uL (4.8-10.8)
[2019-11-25] MEDS ORDERED: Ketorolac Tromethamine 30 MG/ML VIAL IVP SCH (07:15)
--- NOTE | 2019-11-25 07:50 | ULT ---
Bilateral renal ultrasound CLINICAL INDICATION: Hematuria COMPARISON: 09/17/2017 FINDINGS: Right kidney: There is no evidence of a renal mass, renal calculus, or hydronephrosis seen. No renal cortical thinning is present.The right kidney measures 8.7 cm x 4.9 cm. This is smaller in size when compared to prior study in 2017 where the kidney measured 10.1 cm x 5.4 cm. Left kidney: There is no evidence of a renal mass, renal calculus, or hydronephrosis. No renal cortic al thinning is present.The left kidney measures 9.7 cm x 5.2 cm. This is smaller in size compared to study in 2017 where the left kidney measuring 13 cm x 7.2 cm.. Urinary bladder: Normal in appearance. Urinary bladder volume is 317.4 mL. IMPRESSION: 1. Smaller size of the kidneys bilaterally when compared to study in 2017. There is no renal cortical thinning or hydronephrosis.
[2019-11-25] MEDS: Potassium Chloride 20 MEQ TAB PO SCH ×2 (09:23→12:16)
[2019-11-25] MEDS: traMADol HCl 50 MG TAB PO PRN ×2 (13:50→20:11)
[2019-11-25] MEDS: cloNIDine 0.1 MG TAB PO PRN (22:51)
[2019-11-26] MEDS: traMADol HCl 50 MG TAB PO PRN (03:32)
[2019-11-26] MEDS: HumaLOG 300 UNITS/3 ML VIAL SC PRN ×2 (06:04→18:09)
[2019-11-26 09:38] LABS: Anion Gap 10 mmol/L (10-20); BUN (Urea Nitrogen) 19 mg/dL (9.8-20.1); Calc. Creatinine Clearance 53 mL/min (70-130); Calcium 7.7 mg/dL (7.8-10.44); Carbon Dioxide 18 mmol/L (22-29); Chloride 114 mmol/L (98-107); Estimated GFR-MDRD 59; Glucose 100 mg/dL (70-105); Potassium 3.6 mmol/L (3.5-5.1); Sodium 138 mmol/L (136-145)
[2019-11-26] MEDS: cloNIDine 0.1 MG TAB PO PRN ×2 (13:16→21:38)
[2019-11-26] MEDS: HYDROcodone/Acetaminophen 5/325 mg Tablet PO PRN ×2 (14:46→19:41)
--- NOTE | 2019-11-26 15:00 | PRG ---
DATE OF SERVICE: 11/26/2019 SUBJECTIVE: The patient is seen and examined at bedside. She complains about pain in her pelvis area. Her bladder was just scanned by the nurse and it was 154 mL. OBJECTIVE: VITAL SIGNS: Blood pressure is 181/77, pulse is 90, temperature is 98.2, respirations 20, and O2 saturation is 95% on room air. HEENT: Her head is atraumatic and normocephalic. Eyes are PERRLA. Sclerae are nonicteric. She has multiple teeth with cavities and I think she has gum disease. NECK: Supple. LUNGS: Clear. HEART: S1 and S2 normal. ABDOMEN: Soft and nontender. Bowel sounds are present. No organomegaly. PELVIS: Bony structure tender to palpation. Soft tissue, not much tenderness present during applied pressure. EXTREMITIES: No clubbing, cyanosis, or edema. NEUROLOGICAL: She follows my commands. She moves her all 4 extremities. There are no any sensory or motor deficits. LABORATORY DATA: Labs showed sodium of 138, potassium 3.6, chloride 114, CO2 of 18, BUN 19, creatinine 0.97, glycemia is ranging from 99 to 223, and calcium is 7.7. IMPRESSION: 1. Pelvic pain. I think this is related to her previous fracture of the pelvis, which showed up on her current CT of the pelvis, which showed old fracture of the inferior pubic ramus on the left. I am going to stop her IV antibiotic, which was used for possible urinary tract infection, but the cultures of her urine came back negative. We will use Vicodin instead of tramadol to control the pain that she complains about. 2. History of recurrent urinary tract infection most likely caused by frequent self catheterization. 3. Diabetes mellitus, type 2, controlled. 4. Fibromyalgia. 5. Anxiety. 6. Depression. DISCUSSION: The patient was admitted with possible urinary tract infection, but urine culture came back negative and she is pointing out more at the bone structure of the pelvis, which tells me that this is most likely related to the old fracture. Apparently, she had a fall approximately a month ago, which could be the cause of her pubic fracture and so we will change her from tramadol to Vicodin. I will stop Rocephin and we will continue her physical therapy. Job ID: [id number]
[2019-11-26] MEDS: Acetaminophen 325 MG TAB PO PRN (18:09)
[2019-11-27] MEDS: HYDROcodone/Acetaminophen 5/325 mg Tablet PO PRN ×3 (00:12→09:02)
[2019-11-27] MEDS ORDERED: Oxybutynin 5 MG TAB PO SCH (09:00)
[2019-11-27] MEDS ORDERED: Metoprolol Tartrate 25 MG TAB PO SCH (09:00)
[2019-11-27 10:30] VITALS: BP 155/82; TEMP 98.6
[2019-11-27] MEDS ORDERED: tiZANidine HCl 4 MG TAB PO SCH (14:00)
--- NOTE | 2019-11-27 16:03 | DIS ---
DATE OF ADMISSION: 11/25/2019 DATE OF DISCHARGE: 11/27/2019 DISCHARGE DISPOSITION: Home. PRIMARY DISCHARGE DIAGNOSES: Abdominal pain secondary to prior pelvic fracture/surgical site, initial suspicion for urinary tract infection. SECONDARY DISCHARGE DIAGNOSES: Diabetes mellitus type 2, hypertension, fibromyalgia, anxiety disorder, depression, poor functional status with the patient not being ambulating for almost a year now. PROCEDURES DONE DURING HOSPITALIZATION: Abdominal and pelvic CAT scan done showed no acute findings. Ultrasound kidneys, bilateral, showed small size of kidneys but no renal cortical thinning or hydronephrosis was seen. Right kidney measured 8.7 x 4.9 cm. Left kidney measured 9.7 x 5.2 cm. Urine culture was contaminated. White count of 8, H and H of 9 and 26, platelet count 220, MCV is 94. BUN 19, creatinine 0.9. Albumin is 3.1. DISCHARGE MEDICATIONS: 1. Humalog 10 units subcu before meals. 2. Levemir 30 units subcu q.a.m. and q.p.m. 3. Oxybutynin 5 mg three times daily. 4. Tizanidine 4 mg p.o. three times daily. 5. Lopressor 25 mg twice daily. ALLERGIES: SULFA. DISCHARGE PLAN: The patient to follow up with her primary care physician, Dr. Klever Mercado in 1 week. BRIEF COURSE DURING HOSPITALIZATION: The patient initially got admitted on the with complaints of abdominal pain in the suprapubic and mainly in the left lower quadrant area. In view of this history, an initial UA was suspicious for possible UTI. The patient also mentioned that she does self catheterization. In view of above history, the patient was placed under observation on medical floor. A CT of the abdomen and pelvis done did not reveal any acute pathology. Ultrasound of the kidneys did not reveal any acute pathology except for small size of kidneys when compared to prior imaging. She remained hemodynamically stable. The patient did mention that she has not ambulated for almost a year and is essentially wheelchair bound after she sustained an inferior ramus pelvic fracture, which was surgically repaired a year back. Her abdominal pain completely resolved during her stay. She is hemodynamically stable and will be discharged home. Please note, I have seen and examined the patient on the day of discharge. Job ID: [id number]
--- NOTE | 2019-11-28 00:48 | EKG ---
Test Reason : Blood Pressure : / mmHG Vent. Rate : 096 BPM Atrial Rate : 096 BPM P-R Int : 166 ms QRS Dur : 074 ms QT Int : 384 ms P-R-T Axes : 055 -14 095 degrees QTc Int : 485 ms Sinus rhythm with occasional Premature ventricular complexes Possible Left atrial enlargement Nonspecific T wave abnormality Abnormal ECG Confirmed by SCOT MOELLER M.D. ([id number]), greeting card editor FELIBERTO OCAMPO ([id number]) on 11/28/2019 12:48:24 AM Referred By: Confirmed By:SCOT MOELLER M.D.
== END 2019-11-27 12:10 | disposition home or self-care (01) ==
LOC: ERS 18:57 → ERHOLD 11-25 00:26 → SURG A 11-25 03:01
PROVIDERS: ADMIT Internal Medicine; ATTEND Internal Medicine
DX: G89.18 Other acute postprocedural pain (principal); R10.2 Pelvic and perineal pain; E11.9 Type 2 diabetes mellitus without complications; I10 Essential (primary) hypertension; M79.7 Fibromyalgia; F41.9 Anxiety disorder, unspecified; F32.9 Major depressive disorder, single episode, unspecified; Z88.2 Allergy status to sulfonamides; Z99.3 Dependence on wheelchair
CPT/HCPCS: 36415; 36416; 51798; 74177; 76770; 80048; 80053; 81003; 81015; 83605; 83690; 85025; 87086; 93005; 96361; 96365; 96375; 96376; G0378; J0696; J1630; J1885; J2270; J3490; Q9967

== ENCOUNTER 2020-01-28 15:35 | Inpatient (IN) | payer BC, OTHER, SELFPAY ==
[2020-01-28 17:57] LABS: Bacteria/HPF 4+ HPF (None Seen); Clarity Turbid (Clear); RBC/HPF 0-3 HPF (0-3); Renal Epithelial 0-3 HPF (None Seen); Squamous Epithelial 0-3 HPF (0-3); WBC/HPF 21-50 HPF (0-3)
[2020-01-28 18:01] LABS: Amphetamine Not Detected (NotDetected); Barbiturates Screen Not Detected (NotDetected); Benzodiazepine Screen Not Detected (NotDetected); Cocaine Metabolite Screen Not Detected (NotDetected); Medtox Control Line Valid? VALID (VALID); Medtox Reader # READER 4; Methadone Not Detected (NotDetected); Methamphetamine Not Detected (NotDetected); Opiate Screen Not Detected (NotDetected); Oxycodone Screen Not Detected (NotDetected); Phencyclidine (PCP) Not Detected (NotDetected); THC/Cannabinoid Screen Not Detected (NotDetected); Tricyclic Screen Not Detected (NotDetected)
[2020-01-28 18:14] LABS: Glucose, Urine (Dipstick) Unable to Interpret mg/dL (Negative); Leukocyte Unable to Interpret Leu/uL (Negative); Nitrite Unable to Interpret (Negative); Protein, Urine (Dipstick) Unable to Interpret mg/dL (Neg-Trace)
[2020-01-28 18:15] LABS: Bilirubin Unable to Interpret (Negative); Blood, Urine Unable to Interpret (Negative); Urobilinogen UNABLE TO INTERPRET mg/dL (Less than 2)
[2020-01-28 18:38] LABS: Hemoglobin 5.5 g/dL (12.0-16.0); Mean Corpuscular HGB CONC 31.2 g/dL (32.0-36.0); Mean Corpuscular Volume 99.3 fL (78.0-98.0); Mean Platelet Volume 7.4 fL (7.4-10.4); Platelet Count 465 thou/uL (130-400); RBC Distribution Width 18.2 % (11.5-14.5); Red Blood Cell (RBC) Count 1.79 mill/uL (4.20-5.40)
[2020-01-28 18:43] LABS: INR-International Normal Ratio 0.9; PTT 34.8 SEC (22.9-36.1); Prothrombin Time 12.6 SEC (12.0-14.7)
[2020-01-28 18:48] LABS: Acetaminophen Less than 6.0 mcg/mL (10.0-30.0); Alcohol Less than 10 mg/dL (Less than 10); Salicylate Less than 8.0 mg/dL (15.0-30.0)
[2020-01-28 18:49] LABS: ALT (SGPT) 9 U/L (8-55); AST (SGOT) 20 U/L (5-34); Alkaline Phosphatase 133 U/L (40-110); Anion Gap 14 mmol/L (10-20); BUN (Urea Nitrogen) 39 mg/dL (9.8-20.1); Bilirubin, Total 0.6 mg/dL (0.2-1.2); Calc. Creatinine Clearance 0 mL/min (70-130); Calcium 8.5 mg/dL (7.8-10.44); Carbon Dioxide 10 mmol/L (22-29); Chloride 112 mmol/L (98-107); Estimated GFR-MDRD 28; Globulin 3.4 g/dL (2.4-3.5); Glucose 262 mg/dL (70-105); Magnesium 2.4 mg/dL (1.6-2.6); Potassium 3.1 mmol/L (3.5-5.1); Protein, Total 5.4 g/dL (6.0-8.3); Sodium 133 mmol/L (136-145)
--- NOTE | 2020-01-28 18:58 | RAD ---
XR Chest 1 View Portable HISTORY: Dyspnea COMPARISON: 10/29/2019 FINDINGS: The heart size is normal. The lungs are without focal areas of consolidation, pneumothorax or pleural effusions. IMPRESSION: No radiographic evidence of acute cardiopulmonary process.
[2020-01-28 19:04] LABS: Anisocytosis MODERATE=16-30 cells (100X) (0-5/hpf); Band 11 % (5-11); Burr Cells SLIGHT = 2-5 cells (100X) (0-1/hpf); Lymphocytes 10 % (21-51); MDiff Complete? YES; Metamyelocyte 2 % (0-0); Monocytes 1 % (0-10); Neutrophil 76 % (42-75); Nucleated RBC 6 % (0); Ovalocytes SLIGHT = 2-5 cells (100X) (0-1/hpf); Platelet Morphology Comment Appears Increased; Polychromasia MODERATE = 3-4 cells (100X) (0-2/hpf); Schistocytes SLIGHT = 2-5 cells (100X) (0-1/hpf); Spherocytes SLIGHT = 1-5 cells (100X) (None Seen); White Blood Cell (WBC) Count 28.2 thou/uL (4.8-10.8)
[2020-01-28] MEDS ORDERED: cefTRIAXone\\ROCEPHIN 2 GM VIAL ONE (19:39)
--- NOTE | 2020-01-28 20:28 | PDOC.HHP ---
Hospitalist HPI - History of Present Illness Weakness History of Present Illness: Patient is a 59 year old female with PMH DM, HTN who presents to ED for scalp lesion and global weakness x 4-5 days. Patient scalp lesions is on R scalp in hair, appx 4cm, tender, began 4-5 days ago or longer and did not respond to ibuprofen and home treatments by , they [facility] however did not get substantial assistance. believes this began after picking a scab, and she has had these sorts of lesions arise before. She also developed bilateral arm and leg weakness in the same time and has not been at baseline activity level. She is normally wheelchair bound but can normally transfer by herself and do ADL however is not able to do this in last few days. She is diabetic and is supposed to take insulin but has been noncompliant and blood sugar was in 300s on presentation, 200s now. She takes tizanidine for chronic lower back pain. In ED, labs concerning for UTI, multiple electrolyte abnormalities, also anemia which is recurrent and without diagnosis, patient has a cough, CXR without acute process, lactic acid pending, 2u pRBC ordered, given IVF and ceftriaxone, admitted for further evaluation. Hospitalist ROS - Review of Systems Constitutional: denies: fever, chills Eyes: denies: pain, vision change ENT: reports: other (R scalp lesion and tenderness). denies: throat pain Respiratory: reports: cough, shortness of breath. denies: pleuritic pain, sputum Cardiovascular: denies: chest pain, palpitations Gastrointestinal: denies: nausea, vomiting, abdominal pain Genitourinary: reports: dysuria, incontinence Musculoskeletal: reports: arm pain, back pain, leg pain Skin: reports: rash, lesions, other (R scalp lesion) Neurological: reports: weakness, confusion. denies: numbness, change in speech All other systems reviewed; all pertinent +/- noted in HPI/Subj - Medication Medications: reviewed, see chart for medications Hospitalist History - Past Medical History Other Medical History: Diabetes II Chronic lower back pain Anemia Recurrant UTI - Past Surgical History Other Surgical History: Lumbar fusion L4-L5 FUSION, cholecystectomy, hysterectomy. Biopsy of bladder December 2015. Left hip sx for fx s/p fall 2018. - Family History Other Family History: Reviewed, no relevant family history - Social History Smoking Status: Never smoker Alcohol: reports: None Drugs: reports: none - Exam General Appearance: NAD, awake alert (confused) Eye: PERRL, anicteric sclera ENT: dry oral mucosa ENT - other findings: R scalp lesion in hair, tender, yellow crusted appearance, ~4cm circular Neck: supple, no JVD Heart: RRR, no murmur, no gallops, no rubs Respiratory: CTAB, no wheezes, no rales, no ronchi Gastrointestinal: soft, non-tender, non-distended, normal bowel sounds Extremities: 1+ LE edema Extremities - other findings: global weakness, no focal deficits Skin - other findings: scalp lesion as above Neurological: no focal deficits. negative: speech deficit Musculoskeletal: generalized weakness, diffuse muscle atrophy Psychiatric: normal affect, normal behavior Psychiatric - other findings: confused Hospitalist Results - Labs Result Diagrams: 01/28/20 18:08 01/28/20 18:08 Lab results: WBC 28.2 thou/uL (4.8-10.8) H 01/28/20 18:08 Hgb 5.5 g/dL (12.0-16.0) L* 01/28/20 18:08 Hct 17.8 % (36.0-47.0) L 01/28/20 18:08 MCV 99.3 fL (78.0-98.0) H 01/28/20 18:08 Plt Count 465 thou/uL (130-400) H 01/28/20 18:08 Band Neuts % (Manual) 11 % (5-11) 01/28/20 18:08 Sodium 133 mmol/L (136-145) L 01/28/20 18:08 Potassium 3.1 mmol/L (3.5-5.1) L 01/28/20 18:08 Chloride 112 mmol/L (98-107) H 01/28/20 18:08 Carbon Dioxide 10 mmol/L (22-29) L 01/28/20 18:08 BUN 39 mg/dL (9.8-20.1) H 01/28/20 18:08 Creatinine 1.85 mg/dL (0.6-1.1) H 01/28/20 18:08 Glucose 262 mg/dL (70-105) H 01/28/20 18:08 Calcium 8.5 mg/dL (7.8-10.44) 01/28/20 18:08 Total Bilirubin 0.6 mg/dL (0.2-1.2) 01/28/20 18:08 AST 20 U/L (5-34) 01/28/20 18:08 ALT 9 U/L (8-55) 01/28/20 18:08 Alkaline Phosphatase 133 U/L (40-110) H 01/28/20 18:08 Ammonia 22 umol/L (18-72) 01/28/20 18:05 Troponin I 0.011 ng/mL (< 0.028) 01/28/20 18:08 B-Natriuretic Peptide 316.5 pg/mL (0-100) H 01/28/20 18:08 Serum Total Protein 5.4 g/dL (6.0-8.3) L 01/28/20 18:08 Albumin 2.0 g/dL (3.5-5.0) L 01/28/20 18:08 Urine Ketones Unable to Interpret mg/dL (Negative) 01/28/20 17:10 Urine Blood Unable to Interpret (Negative) 01/28/20 17:10 Urine Nitrite Unable to Interpret (Negative) 01/28/20 17:10 Ur Leukocyte Esterase Unable to Interpret Catalino/uL (Negative) 01/28/20 17:10 Urine RBC 0-3 HPF (0-3) 01/28/20 17:10 Urine WBC 21-50 HPF (0-3) A 01/28/20 17:10 Ur Squamous Epith Cells 0-3 HPF (0-3) 01/28/20 17:10 Urine Bacteria 4+ HPF (None Seen) A 01/28/20 17:10 Additional comment: VITAL SIGNS FriJanuary 28, 2020 20:00 STEVE Georges Daniel BP: 110/59 Pulse: 72 Resp: 18 Temp: 98.0 (Oral) Pain: 7 O2 sat: 95 on (4L Oxygen) Time: 01/28/2020 20:00. Hospitalist H&P A/P - Plan Plan: 59F with PMH DM2 admitted for: # UTI with sepsis - admit to floor - ceftriaxone - follow blood and urine cultures - PT/OT consutled for weakness and rehab screen # [place] # hypokalemia # metabolic acidosis # hyponatremia - multiple electrolyte abnormalities possibly due to [place], ATN, recieved IVF, continue with transfusion and recheck in AM - renal US # DM II w/ hyperglycemia - noncompliant at home w/ insulin, hyperglycemic on admission, will start lantus 15u BID which is half of previous dose and moderate SSI and titrate up # R scalp lesion - concerning for abscess/staph infection, developed after scratching a scab, will start vancomycin and consult surgery for evaluation for I&D. Will order ultrasound to further characterize. # hypoxia - perhaps due to anemia, transfuse tonight, CXR negative, consider CT chest if not responding to other measures - follow up coronavirus screen, precautions ordered # chronic lower back pain - continue zanaflex as a PRN instead of home dose which is scheduled # anemia - recurrent. no history of colonoscopy. - add iron panel and b12 to labs - consult GI for colonoscopy referral, can probably be done as outpatient - needs hematology referral at discharge as well - transfuse 2u pRBC and recheck CBC daily, no lalit bleeding has been noted
[2020-01-28] MEDS ORDERED: Promethazine HCl 12.5 MG in Sodium Chloride 0.9% 50 ML IVPB PRN (20:41)
[2020-01-28] MEDS ORDERED: cloNIDine 0.1 MG TAB PO PRN (20:41)
[2020-01-28] MEDS ORDERED: Guaifenesin DM 100-10/5 ML UDCUP PO PRN (20:43)
[2020-01-28] MEDS ORDERED: Dextrose 50% Abboject 50 ML SYRINGE SLOW IVP PRN (20:43)
[2020-01-28] MEDS ORDERED: Bisacodyl 5 MG TAB PO PRN (20:43)
[2020-01-28] MEDS ORDERED: Senokot S 8.6-50 MG TAB PO PRN (20:43)
[2020-01-28] MEDS ORDERED: Dextrose 5% in Water 1,000 ML IV PRN (20:43)
[2020-01-28] MEDS ORDERED: Vancomycin 1 GM in Premix Bag 1 BAG IVPB SCH (21:00)
[2020-01-28] MEDS ORDERED: Ondansetron PF 4 MG/2 ML Vial ONE (21:08)
[2020-01-28] MEDS ORDERED: Morphine 4 MG/ML VIAL ONE (21:08)
[2020-01-28 21:45] LABS: Iron 75 ug/dL (50-170); Iron Binding Capacity, Total 151 mcg/dL (265-497); Lipase 227 U/L (8-78)
[2020-01-28 22:10] LABS: Ferritin 917.54 ng/mL (10-291); Thyroid Stimulating Hormone 1.2998 uIU/mL (0.35-4.94)
--- NOTE | 2020-01-28 22:11 | ULT ---
Bilateral renal ultrasound: HISTORY: Acute renal insufficiency COMPARISON: 11/25/2019 FINDINGS: The right kidney measures 10.1 cm in length and the left kidney measures 11.6 cm in length. No focal mass, renal calculus or hydronephrosis is seen on either side. The bladder is unremarkable. Bilateral ureteral jets are seen. IMPRESSION: No significant abnormalities are identified.
--- NOTE | 2020-01-28 22:13 | ULT ---
US Soft Tissue Other HISTORY: Raised area the right side of scalp. Right scalp lesion, evaluate for abscess COMPARISON: None. FINDINGS: Sonographic evaluation of the region of palpable concern in the right side of the scalp dem onstrates soft tissue edema without evidence of focal fluid collection. Clinical correlation is recommended.
[2020-01-29] MEDS: Insulin Glargine 15 UNITS in Pre-Filled Syringe 1 EACH SC SCH ×3 (00:08→20:54)
[2020-01-29] MEDS: Acetaminophen 325 MG TAB PO PRN ×2 (03:29→08:20)
[2020-01-29 04:38] VITALS: BMI 24.5
[2020-01-29] MEDS: Vancomycin 1 GM in Premix Bag 1 BAG IVPB SCH (05:33)
[2020-01-29] MEDS: HYDROcodone/Acetaminophen 5/325 mg Tablet PO PRN ×3 (05:39→20:55)
[2020-01-29 06:08] LABS: ALT (SGPT) 7 U/L (8-55); AST (SGOT) 10 U/L (5-34); Albumin 2.1 g/dL (3.5-5.0); Alkaline Phosphatase 130 U/L (40-110); Anion Gap 14 mmol/L (10-20); BUN (Urea Nitrogen) 39 mg/dL (9.8-20.1); Bilirubin, Direct 0.3 mg/dL (0.1-0.3); Bilirubin, Total 0.6 mg/dL (0.2-1.2); Calc. Creatinine Clearance 34 mL/min (70-130); Calcium 8.4 mg/dL (7.8-10.44); Carbon Dioxide 11 mmol/L (22-29); Chloride 112 mmol/L (98-107); Estimated GFR-MDRD 31; Glucose 247 mg/dL (70-105); Magnesium 2.4 mg/dL (1.6-2.6); Protein, Total 5.3 g/dL (6.0-8.3); Sodium 134 mmol/L (136-145)
[2020-01-29] MEDS: HumaLOG 300 UNITS/3 ML VIAL SC PRN ×3 (06:08→17:47)
[2020-01-29 06:16] LABS: Band 11 % (5-11); Hemoglobin 9.1 g/dL (12.0-16.0); Hypochromia SLIGHT = 6-15 cells (100X) (0-5/hpf); Lymphocytes 7 % (21-51); MDiff Complete? YES; Mean Corpuscular HGB CONC 33.7 g/dL (32.0-36.0); Mean Corpuscular Hemoglobin 31.1 pg (27.0-31.0); Mean Corpuscular Volume 92.2 fL (78.0-98.0); Mean Platelet Volume 7.1 fL (7.4-10.4); Monocytes 2 % (0-10); Neutrophil 80 % (42-75); Nucleated RBC 4 % (0); Platelet Count 399 thou/uL (130-400); Platelet Morphology Comment Appears Adequate; Polychromasia SLIGHT = 2-3 cells (100X) (0-2/hpf); RBC Distribution Width 15.3 % (11.5-14.5); Red Blood Cell (RBC) Count 2.92 mill/uL (4.20-5.40); White Blood Cell (WBC) Count 28.2 thou/uL (4.8-10.8)
[2020-01-29 06:19] LABS: Potassium 2.8 mmol/L (3.5-5.1)
[2020-01-29] MEDS ORDERED: Potassium Chloride 40 MEQ in Sodium Chloride 0.9% 250 ML 250 ML IVPB SCH (07:00)
[2020-01-29] MEDS: Polyethylene Glycol 3350 17 GM Packet PO SCH (07:49)
[2020-01-29] MEDS: Ondansetron PF 4 MG/2 ML Vial IVP PRN ×2 (07:49→21:19)
[2020-01-29] MEDS ORDERED: Sodium Chloride 0.9% 1,000 ML IV SCH (08:15)
[2020-01-29] MEDS ORDERED: Iopamidol-370 76% 500 ML 1 ML ONE (10:10)
[2020-01-29 13:19] LABS: SARS-CoV-2 MS2 Positive; SARS-CoV-2 N Gene Negative; SARS-CoV-2 S Gene Negative; SARS-CoV-2 orf1ab Negative
[2020-01-29] MEDS: Morphine 4 MG/ML VIAL SLOW IVP PRN (13:37)
[2020-01-29] MEDS: Sodium Chloride 0.9% 1,000 ML IV SCH ×2 (15:20→21:00)
--- NOTE | 2020-01-29 15:52 | CON ---
DATE OF CONSULTATION: HISTORY OF PRESENT ILLNESS: Tomi Sal is a 59-year-old female with a large right scalp multiloculated abscess. I have been asked to see her regarding attention to this. She is also admitted with a hemoglobin of 5.5, transfused and hemoglobin this morning is 9.1. She had a CAT scan in October that was essentially unremarkable, but this was performed without contrast. Personal review of the scan reveals absence of any significant constipation on that CAT scan of October and she does have lumbar hardware from an ORIF of lumbar spine in the past. The patient has been hospitalized multiple times in the past. A Gastrografin small-bowel follow-through in September 2019 was unremarkable for an obstruction. There was some mild dilatation. Renal ultrasound in this hospitalization is unremarkable. Carotid Doppler studies in 2013 were unremarkable. Cardiac stress test January 2014 unremarkable with normal ejection fraction. The patient was seen in the emergency room and admitted to the Hospitalist Service on 01/28/2020. Her main complaints were that of a scalp lesion that was painful and generalized weakness, and she was found to be severely anemic. Home Health nursing efforts at home were unsuccessful. In the emergency room, she was felt to possibly have a UTI. She is noted to have electrolyte abnormalities and she was severely anemic. The patient is uncertain, but she thinks she had a colonoscopy several years ago. She cannot remember when in [facility] or another facility. She cannot tell me when or exactly when. Dr. Ely has been consulted for evaluation of her anemia. ALLERGIES: SULFA. MEDICATIONS: At home, 1. Oxybutynin. 2. Zanaflex. In the hospital, she has been started on, 1. Vancomycin. 2. Sliding scale insulin. 3. Oral pain medications. 4. Dulcolax. PAST SURGICAL HISTORY: ORIF of lumbar spine. She reports having had a cholecystectomy in the past. Review of the records that revealed in 2016, Dr. Ely performed an EGD, which was essentially unremarkable. 01/10/2016, Dr. Chet Monten[place], performed a cystoscopy and retrogrades for hematuria with diagnosis of urinary retention status and an unremarkable cystoscopy. Dr. Boy Royal, July 2015, performed upper endoscopy that was normal because of epigastric pain. PAST MEDICAL HISTORY: Diabetes mellitus type 2, chronic lower back pain, chronic pain, recurrent UTI, and anemia. The patient denies having had a hysterectomy even though that is listed by the Hospitalist as her having one. She denies having had this. Hospitalist reports left hip surgery after a fall. FAMILY HISTORY AND REVIEW OF SYSTEMS: Although questionably reliable or unremarkable. The patient apparently has chronic low back pain, chronic abdominal pain, complains of pain in multiple locations documented by past hospitalizations. PHYSICAL EXAMINATION: VITAL SIGNS: Height 5 feet 2 inches, 134 pounds, 24 BMI. Temperature 99.7 degrees, pulse 87, blood pressure 131/73. HEAD, EARS, EYES, NOSE, AND THROAT: Unremarkable. Sclerae nonicteric. SKIN: Nonjaundiced. LUNGS: Clear to auscultation. CARDIAC: Regular rate and rhythm without murmur or gallop. ABDOMEN: Soft. Diffuse tenderness without peritoneal signs. Bowel sounds diminished. EXTREMITIES: No ankle edema. Scalp, large 8 cm diameter multiloculated abscess is very tender. She would not even let me touch it. LABORATORY DATA: White count 28,000, hemoglobin 9.1. Differential unremarkable. Coagulation studies, normal. BUN and creatinine 39 and 1.7. She has had intermittently normal elevated renal function tests in the past. Potassium 2.8, sodium 134. She has been given replacement. Hemoglobin A1c has not been obtained. We will order that. Glucose is 265 to 213. ASSESSMENT AND PLAN: 1. Scalp abscess, multiloculated. This cannot be done at the bedside due to the patient's pain. We will plan operative drainage on Friday. 2. Abdominal pain. Obtain CAT scan of the abdomen and pelvis for further evaluation. 3. Severe anemia. Awaiting Dr. Ely's consult, probably endoscopic evaluation. Await CAT scan. 4. Chronic back pain, status ORIF lumbar pain. 5. Diabetes mellitus. Suspect poor compliance. Job ID: [id number]
--- NOTE | 2020-01-29 15:57 | PDOC.HOSPP ---
- Subjective Encounter Date: 01/29/20 Subjective: C/O supra pubic pain - Objective Vital Signs & Weight: Vital Signs (12 hours) Temp Pulse Resp BP Pulse Ox 01/29/20 12:38 99.7 F H 01/29/20 10:45 100 F H 87 20 131/73 97 01/29/20 08:17 99.8 F H 88 20 150/74 H 97 01/29/20 08:00 97 Weight Admit Weight 134 lb 7.68 oz Weight 134 lb 7.68 oz I&O: 01/28/20 01/29/20 01/30/20 06:59 06:59 06:59 Intake Total 700 Balance 700 Result Diagrams: 01/29/20 05:34 01/29/20 05:34 Additional Labs: Accuchecks 01/29/20 01/29/20 12:27 06:01 POC Glucose 213 H 265 H Hospitalist ROS - Medication Medications: Active Medications Generic Name Dose Route Start Last Admin Trade Name Freq PRN Reason Stop Dose Admin Acetaminophen 650 mg 01/28/20 20:43 01/29/20 08:20 Tylenol PO 650 mg Q4H PRN Administration Headache/Fever/Mild Pain (1-3) Hydrocodone Bitart/Acetaminophen 1 tab 01/28/20 20:43 01/29/20 10:36 Firth 5/325 PO 1 tab Q4H PRN Administration Moderate Pain (4-6) Insulin Glargine 15 units/ 0.15 mls @ 0 mls/hr 01/28/20 21:00 01/29/20 12:17 Miscellaneous Medication SC 0.15 mls BID DEVORA Administration Vancomycin HCl 1 gm/ Device 200 mls @ 200 mls/hr 01/29/20 06:00 01/29/20 05: 33 IVPB 02/04/20 06:59 200 mls 0600 DEVORA Administration Potassium Chloride 40 meq/ 270 mls @ 67.5 mls/hr 01/29/20 07:00 01/29/20 07: 49 Sodium Chloride IVPB 01/29/20 16:00 270 mls NOW DEVORA Administration Sodium Chloride 1,000 mls @ 125 mls/hr 01/29/20 14:49 01/29/20 15:20 Normal Saline 0.9% IV Not Given .Q8H DEVORA Insulin Human Lispro 0 units 01/28/20 20:43 01/29/20 12:28 Humalog SC 4 unit .MODERATE SLIDING SC PRN Administration Moderate Correctional Scale Morphine Sulfate 3 mg 01/29/20 13:26 01/29/20 13:37 Morphine SLOW IVP 3 mg Q4H PRN Administration Severe Pain (7-10) Ondansetron HCl 4 mg 01/28/20 20:41 01/29/20 07:49 Zofran IVP 4 mg Q6H PRN Administration Nausea/Vomiting use 1st Pantoprazole Sodium 40 mg 01/29/20 09:00 01/29/20 07:49 Protonix PO 40 mg DAILY DEVORA Administration Polyethylene Glycol 17 gm 01/29/20 09:00 01/29/20 07:49 Miralax PO 17 gm DAILY DEVORA Administration - Exam General Appearance: awake alert ENT: normocephalic atraumatic Neck: supple Heart: RRR Respiratory: CTAB Gastrointestinal: soft, normal bowel sounds, tender to palpation Hosp A/P (1) [place] (acute kidney injury) Code(s): N17.9 - ACUTE KIDNEY FAILURE, UNSPECIFIED Status: Acute (2) Anemia due to blood loss Code(s): D50.0 - IRON DEFICIENCY ANEMIA SECONDARY TO BLOOD LOSS (CHRONIC) Status: Acute (3) Abdominal pain Code(s): R10.9 - UNSPECIFIED ABDOMINAL PAIN Status: Acute Qualifiers: Abdominal location: generalized Qualified Code(s): R10.84 - Generalized abdominal pain (4) Sepsis Code(s): A41.9 - SEPSIS, UNSPECIFIED ORGANISM Status: Acute (5) UTI (urinary tract infection) Status: Acute (6) DM2 (diabetes mellitus, type 2) Status: Chronic (7) Hypertension Code(s): I10 - ESSENTIAL (PRIMARY) HYPERTENSION Status: Chronic - Plan COVID -TIVE Continue IV antibiotics and fluids. Follow creatinine level. GI planning colonoscopy. Scalp abcess for I&D on Friday.
--- NOTE | 2020-01-29 17:48 | CT ---
CT ABDOMEN AND PELVIS WITH ORAL AND IV CONTRAST: 01/28/20 HISTORY: Abdominal pain, anemia, nausea. COMPARISON: 11/24/19. There are bilateral moderate sized pleural effusions with adjacent infiltrates. The patient is post c holecystectomy. The liver, pancreas, adrenal glands and kidneys are normal. There is a new moderate s ized wedge shaped defect in the spleen consistent with infarction. There is a small amount of free fl uid in the abdomen and pelvis. No free air or lymphadenopathy is seen. There is colonic diverticulosi s. The small bowel loops are not abnormally dilated. A Pulido catheter is present in the urinary blad kristyn. There is air in the urinary bladder. There are postop changes and metallic hardware at L4, L5 and S1 levels. There is edema in the subcuta neous fat of the abdominal wall. There is metallic hardware in the left proximal femur. IMPRESSION: 1. Bilateral pleural effusions with adjacent infiltrates. 2. 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 3. Small amount of free fluid in the abdomen and pelvis. 4. Mild colonic diverticulosis. POS: H
[2020-01-29] MEDS: cefTRIAXone\\ROCEPHIN 1 GM in Sodium Chloride 0.9% 100 ML IVPB SCH (20:54)
[2020-01-30] MEDS: Morphine 4 MG/ML VIAL SLOW IVP PRN ×4 (02:01→20:51)
[2020-01-30] MEDS: Vancomycin 1 GM in Premix Bag 1 BAG IVPB SCH (05:29)
[2020-01-30] MEDS: Sodium Chloride 0.9% 1,000 ML IV SCH ×2 (05:40→14:35)
[2020-01-30] MEDS: HYDROcodone/Acetaminophen 5/325 mg Tablet PO PRN ×2 (05:42→11:46)
[2020-01-30] MEDS: hydrALAZINE 20 MG/ML VIAL SLOW IVP PRN (05:43)
[2020-01-30 05:58] LABS: Hemoglobin A1c 4.3 % (4.0-6.0)
--- NOTE | 2020-01-30 05:58 | CON ---
DATE OF CONSULTATION: 01/29/2020 REASON FOR CONSULTATION: Abdominal pain and severe anemia. HISTORY OF PRESENT ILLNESS: Ms. Tomi Sal is a 59-year-old female, hospitalized with some skin and scalp lesions and also generalized weakness and fatigue. Apparently, she has been having this weakness and no energy over the last four or five days. The patient has been hospitalized at least twice this year in this hospital. She was hospitalized in September of 2019 and again October 2019. She was hospitalized for abdominal pain and also constipation. There was a possibility of partial SBO and was seen by Dr. Rodrigo James. This was in September of 2019. The Gastrografin study showed no SBO. The patient was again hospitalized for the same abdominal pain. She was actually discharged in October of 2019 with same symptoms. During the last admission, she was found to be mildly anemic. The patient had no hematochezia or any melena. There is no history of any nose bleed. There is no history of any hematuria or vaginal bleeding. During the last admission, her CBC showed anemia that was found to be very severe. Her hemoglobin ranged from around 9.9 to 11 during repeat admissions. Yesterday, when she came to the ER, her blood count showed severe anemia. The hemoglobin 5.5, hematocrit 17.8, and MCV 99.3. The patient has history of chronic constipation, and she had a BM every third or fourth day. The patient tells me she has had an EGD and a colonoscopy several years ago, but she does not know who performed the procedure. She had no family history of colon cancer. The patient has had chronic back pain and somewhat disabled. She is in a wheelchair, and her ambulation is very limited. Repeat CBC done today; WBC is 28,200, hemoglobin 9.1, and hematocrit 26.9. She appears very comfortable, in no distress. She has had negative abdominal sonogram and negative CAT scan x2. An abdominal sonogram done during this admission showed no pathology. She has no other complaints. ALLERGIES: NONE. SOCIAL HISTORY: The patient is disabled. She is . She does not smoke or drink alcohol. No history of drug abuse. MEDICAL ILLNESSES: 1. Chronic back pain and somewhat disabled from the back pain with previous spine surgery. 2. Diabetes mellitus. 3. Hypertension. 4. Depression. 5. Chronic anxiety. 6. Anemia. 7. Recurrent UTIs. 8. Chronic low back pain with previous surgery. PAST SURGICAL HISTORY: 1. Hysterectomy. 2. Cholecystectomy. 3. L4-L5 spinal fusion. 4. Bladder biopsy in 2016. 5. Left hip surgery for fracture, following a fall in 2019. FAMILY HISTORY: Denies any family history of any cancer, stroke, heart disease, or lung disease. MEDICATIONS: Reviewed. Although she has history of depression and anxiety, she is not taking any medicines. REVIEW OF SYSTEMS: 10-point system review; CONSTITUTIONAL: No history of any weight loss. Her ambulation is very limited and basically in a wheelchair. No history of any fever or chills. No weight loss. HEAD: No chronic headache, but does have a scalp lesion recently. EYES: No diplopia. No impaired vision. EARS: No hearing loss. No discharge or any ear pain. NOSE: No nosebleed. THROAT: No sore throat or dysphagia. NECK: No stiffness or limitation of movement. HEART: No chest pain. No palpitation. No dyspnea, orthopnea, or PND. LUNGS: No chronic coughing. No hemoptysis. No dyspnea. GI: Abdominal pain and constipation. She has no history of any hematochezia or any melena. GENITOURINARY: At the present time, denies dysuria or hematuria. NEUROMUSCULAR: Has chronic back pain and limitation of movement. She is basically confined to a wheelchair over the last nine months. Ambulation is very limited. PSYCHIATRIC: History of depression and anxiety. PHYSICAL EXAMINATION: GENERAL: She is very comfortable, in no acute distress. She is awake, alert, and communicative. However, the minute I touch her abdomen, she starts screaming. Her abdomen is very benign. It is very soft and nondistended. VITAL SIGNS: Temperature, had a low-grade fever of 100 degrees Fahrenheit. Pulse is 87. Blood pressure is 131/73. HEENT: Conjunctivae are clear. NECK: Supple. No adenitis or thyromegaly noted. CARDIOVASCULAR: First and second heart sounds heard. LUNGS: Clear to auscultation. ABDOMEN: Soft and nondistended. Abdomen is very benign; however, she starts hollering on touching the abdomen. There is no rebound or guarding. Bowel sounds normal. EXTREMITIES: Reveal no edema. LABORATORY DATA: As mentioned, in the ER she had anemia. CBC; WBC 28,200, hemoglobin 5.5, hematocrit 17.8, MCV 99.3, platelet count is 465,000, polymorphs 76, bands 11, and lymphocytes 10. Today; her WBC count remains the same. Hemoglobin 9.1, hematocrit 26.9, platelet count 397,000, polymorphs 80, 11. Serum chemistries; sodium 134, potassium 2.8, chloride 112, bicarb is 11, BUN is 39, creatinine is 1.70, glucose 247, calcium 8.8, and magnesium 2.4. Ferritin 917.5, bilirubin 0.6, AST is 10, ALT 7, alkaline phosphatase 130, and albumin 2.1. CLINICAL IMPRESSION: 1. A 59-year-old female with abdominal pain and constipation. She had been here twice in the past four months. She has negative abdominal CAT scan and also negative small bowel series in the past. She has seen Dr. Rodrigo James in consultation because of abdominal pain, possibly small-bowel obstruction; however, it was ruled out by negative Gastrografin study. She appears very comfortable lying in bed. However, on palpation, she starts hollering. Abdomen is actually not firm. No guarding or rigidity. However, bandemia is worrisome. It is possible that the patient could have either diverticulitis or possibly colitis. She is also hypokalemic. 2. Anemia with no history of any gastrointestinal blood loss. 3. Hypertension. 4. Diabetes mellitus. 5. Depression. 6. Anxiety. 7. Chronic back pain with impaired mobility. RECOMMENDATIONS: 1. Change the diet to clear liquid diet for possibly prepping the patient for an EGD and colonoscopy on Friday. 2. Her COVID study is pending at the present time, and she has symptoms at the present time. 3. Replacement of potassium. 4. We will follow up labs. 5. EGD and colonoscopy in the near future after the COVID test comes back. Job ID: [id number]
[2020-01-30 06:00] LABS: Band 12 % (5-11); Eosinophils 4 % (0-10); Hemoglobin 9.1 g/dL (12.0-16.0); Lymphocytes 7 % (21-51); MDiff Complete? YES; Mean Corpuscular HGB CONC 34.8 g/dL (32.0-36.0); Mean Corpuscular Hemoglobin 31.1 pg (27.0-31.0); Mean Corpuscular Volume 89.3 fL (78.0-98.0); Mean Platelet Volume 6.6 fL (7.4-10.4); Metamyelocyte 1 % (0-0); Monocytes 3 % (0-10); Neutrophil 73 % (42-75); Nucleated RBC 1 % (0); Platelet Count 379 thou/uL (130-400); Platelet Morphology Comment Appears Adequate; RBC Distribution Width 17.4 % (11.5-14.5); Red Blood Cell (RBC) Count 2.94 mill/uL (4.20-5.40)
[2020-01-30 06:07] LABS: ALT (SGPT) 7 U/L (8-55); AST (SGOT) 10 U/L (5-34); Albumin 1.8 g/dL (3.5-5.0); Alkaline Phosphatase 120 U/L (40-110); Anion Gap 8 mmol/L (10-20); BUN (Urea Nitrogen) 31 mg/dL (9.8-20.1); Bilirubin, Direct 0.2 mg/dL (0.1-0.3); Bilirubin, Total 0.4 mg/dL (0.2-1.2); Calc. Creatinine Clearance 44 mL/min (70-130); Calcium 7.9 mg/dL (7.8-10.44); Carbon Dioxide 13 mmol/L (22-29); Chloride 118 mmol/L (98-107); Estimated GFR-MDRD 42; Glucose 89 mg/dL (70-105); Magnesium 2.2 mg/dL (1.6-2.6); Protein, Total 4.7 g/dL (6.0-8.3); Sodium 136 mmol/L (136-145)
[2020-01-30] MEDS: Polyethylene Glycol 3350 17 GM Packet PO SCH (09:27)
[2020-01-30] MEDS: Insulin Glargine 15 UNITS in Pre-Filled Syringe 1 EACH SC SCH ×2 (09:27→20:50)
[2020-01-30] MEDS ORDERED: Potassium Chloride 20 MEQ TAB PO SCH (10:30)
--- NOTE | 2020-01-30 10:57 | PDOC.HOSPP ---
- Subjective Encounter Date: 01/30/20 Subjective: C/O severe lower abdominal pain that has not improved since yesterday. - Objective Vital Signs & Weight: Vital Signs (12 hours) Temp Pulse Resp BP Pulse Ox 01/30/20 07:49 100 01/30/20 07:43 98.8 F 90 18 128/71 100 01/30/20 05:43 88 01/30/20 05:30 99.1 F 88 18 175/89 H 95 01/30/20 00:00 99 F 89 18 144/85 H 94 L Weight Admit Weight 134 lb 7.68 oz Weight 134 lb 7.68 oz I&O: 01/29/20 01/30/20 01/31/20 06:59 06:59 06:59 Intake Total 700 3460 Output Total 960 Balance 700 2500 Result Diagrams: 01/30/20 05:41 01/30/20 05:41 Additional Labs: Accuchecks 01/30/20 01/29/20 01/29/20 05:44 20:30 16:36 POC Glucose 98 175 H 150 H 01/29/20 12:27 POC Glucose 213 H Hospitalist ROS - Medication Medications: Active Medications Generic Name Dose Route Start Last Admin Trade Name Freq PRN Reason Stop Dose Admin Acetaminophen 650 mg 01/28/20 20:43 01/29/20 08:20 Tylenol PO 650 mg Q4H PRN Administration Headache/Fever/Mild Pain (1-3) Hydrocodone Bitart/Acetaminophen 1 tab 01/28/20 20:43 01/30/20 05:42 [place] 5/325 PO 1 tab Q4H PRN Administration Moderate Pain (4-6) Hydralazine HCl 10 mg 01/28/20 20:41 01/30/20 05:43 Apresoline SLOW IVP 10 mg Q6H PRN Administration SBP GREATER THAN 160 Ceftriaxone Sodium 1 gm/ 100 mls @ 200 mls/hr 01/29/20 20:00 01/29/20 20:54 Sodium Chloride IVPB 02/03/20 20:29 100 mls Q24HR DEVORA Administration Insulin Glargine 15 units/ 0.15 mls @ 0 mls/hr 01/28/20 21:00 01/30/20 09:27 Miscellaneous Medication SC 0.15 mls BID DEVORA Administration Vancomycin HCl 1 gm/ Device 200 mls @ 200 mls/hr 01/29/20 06:00 01/30/20 05: 29 IVPB 02/04/20 06:59 200 mls 0600 DEVORA Administration Sodium Chloride 1,000 mls @ 125 mls/hr 01/29/20 14:49 01/30/20 05:40 Normal Saline 0.9% IV 1,000 mls .Q8H DEVORA Administration Insulin Human Lispro 0 units 01/28/20 20:43 01/29/20 17:47 Humalog SC 2 unit .MODERATE SLIDING SC PRN Administration Moderate Correctional Scale Morphine Sulfate 3 mg 01/29/20 13:26 01/30/20 09:32 Morphine SLOW IVP 3 mg Q4H PRN Administration Severe Pain (7-10) Ondansetron HCl 4 mg 01/28/20 20:41 01/29/20 21:19 Zofran IVP 4 mg Q6H PRN Administration Nausea/Vomiting use 1st Pantoprazole Sodium 40 mg 01/29/20 09:00 01/30/20 09:27 Protonix PO 40 mg DAILY DEVORA Administration Polyethylene Glycol 17 gm 01/29/20 09:00 01/30/20 09:27 Miralax PO 17 gm DAILY DEVORA Administration - Exam General Appearance: awake alert, ill appearing General - other findings: Scalp abcess ENT: normocephalic atraumatic Neck: supple Respiratory: normal chest expansion, no tachypnea Gastrointestinal: soft, non-distended, tender to palpation Neurological: cranial nerve grossly intact, no focal deficits Hosp A/P (1) Sepsis Code(s): A41.9 - SEPSIS, UNSPECIFIED ORGANISM Status: Acute (2) [place] (acute kidney injury) Code(s): N17.9 - ACUTE KIDNEY FAILURE, UNSPECIFIED Status: Acute (3) Anemia due to blood loss Code(s): D50.0 - IRON DEFICIENCY ANEMIA SECONDARY TO BLOOD LOSS (CHRONIC) Status: Acute (4) Abdominal pain Code(s): R10.9 - UNSPECIFIED ABDOMINAL PAIN Status: Acute Qualifiers: Abdominal location: generalized Qualified Code(s): R10.84 - Generalized abdominal pain (5) UTI (urinary tract infection) Status: Acute (6) DM2 (diabetes mellitus, type 2) Status: Chronic (7) Hypertension Code(s): I10 - ESSENTIAL (PRIMARY) HYPERTENSION Status: Chronic - Plan COVID -TIVE Cr level improving with hydration. GI planning colonoscopy. Scalp abcess for I&D on Friday. E coli in the urine sensitive to ceftriaxone. Leukocytosis is persistent despite vancomycin and ceftriaxone. Bandemia is risisng. The paitient continues to complain of abdominal pain. Add metronidazole to cover for intra abdominal infectious possibility. CT Abd/ Pelvis was unremarkable but was a non contrast study. Follow labs tomorrow.
--- NOTE | 2020-01-30 11:58 | PRG ---
DATE OF SERVICE: 01/30/2020 SUBJECTIVE: When I walked in the room today, she is resting comfortably with a clear liquid tray before her. I asked her if she is having pain. She states that she is having pain in her central to lower abdomen. OBJECTIVE: VITAL SIGNS: Temperature 98.8 degrees, heart rate 90, respiratory rate 18, blood pressure 128/71. LUNGS: Clear to auscultation. CARDIAC: Regular rate and rhythm without murmur or gallop. ABDOMEN: Nondistended, non-tympanitic, however, she has diffuse tenderness with probable voluntary guarding. She, however, is exquisitely tender. EXTREMITIES: Unremarkable. No ankle edema. LABORATORY DATA: This morning, her sodium is 136, potassium 3, chloride 118. Carbon dioxide is 13, up from 12 yesterday. BUN 31, improved from 39 yesterday. Creatinine is 1.3, improved from 1.7 yesterday and 1.85 the day before. Accu-Cheks are 98-175. Hemoglobin A1c when checked was 4.3. The patient's white count is 28,000 which is unchanged from admission. Hemoglobin 9.1. She has 12% bands today where as yesterday she had within normal limits 11%, the day before 11% bands. IMAGING STUDIES: CAT scan of the abdomen and pelvis yesterday obtained revealed changes of moderate portion of splenic infarction which is new relative to past CAT scan, she had some bilateral pleural effusions, and as described above, moderate sized splenic infarction. As per my history and physical, she has had EGDs in the past, but no recent documented colonoscopy, although states that years ago, she had one elsewhere. She had severe anemia on admission. Previous Gastrografin small-bowel follow-through 2 months ago was unremarkable. ASSESSMENT AND PLAN: 1. Acute kidney injury, dehydration, improved. 2. Splenic infarction, could account for the leukocytosis, but would not account for her acidosis. There was no radiological finding of small-bowel abnormalities on CAT scan, however, I am concerned about her ascites and acidosis, leukocytosis with small left shift. I have discussed with Dr. Ely. Plan is for upper and lower endoscopy. She may need a laparoscopy pending clinical course. One would think that ischemic bowel of this nature would show some thickening of the wall or inflammatory changes based on CAT scan, but none was evident. She did have [place], dehydration on admission. 3. Scalp abscess, multiloculated. We will plan incision and drainage in the next few days after abdominal pain workup is complete. If she needs a laparoscopy, that could be done under the same anesthetic. 4. Chronic back pain, status post L4-L5-S1 ORIF changes. Job ID: [id number]
[2020-01-30] MEDS: metroNIDAZOLE 500 MG in Premix Bag 1 BAG IVPB SCH ×2 (14:14→21:44)
[2020-01-30] MEDS ORDERED: GoLYTELY 4,000 ml Bottle PO SCH (15:00)
[2020-01-30] MEDS: cefTRIAXone\\ROCEPHIN 1 GM in Sodium Chloride 0.9% 100 ML IVPB SCH (20:49)
[2020-01-31] MEDS: Sodium Chloride 0.9% 1,000 ML IV SCH ×2 (02:00→06:36)
[2020-01-31] MEDS: metroNIDAZOLE 500 MG in Premix Bag 1 BAG IVPB SCH ×3 (05:07→21:36)
[2020-01-31 05:59] LABS: Vancomycin, Trough 15.1 ug/mL
[2020-01-31 06:01] LABS: ALT (SGPT) 7 U/L (8-55); AST (SGOT) 13 U/L (5-34); Albumin 1.6 g/dL (3.5-5.0); Alkaline Phosphatase 116 U/L (40-110); Anion Gap 10 mmol/L (10-20); BUN (Urea Nitrogen) 25 mg/dL (9.8-20.1); Bilirubin, Direct 0.2 mg/dL (0.1-0.3); Bilirubin, Total 0.3 mg/dL (0.2-1.2); Calc. Creatinine Clearance 71 mL/min (70-130); Calcium 7.6 mg/dL (7.8-10.44); Carbon Dioxide 12 mmol/L (22-29); Chloride 120 mmol/L (98-107); Estimated GFR-MDRD 72; Magnesium 1.9 mg/dL (1.6-2.6); Potassium 3.3 mmol/L (3.5-5.1); Protein, Total 4.6 g/dL (6.0-8.3); Sodium 139 mmol/L (136-145)
[2020-01-31 06:09] LABS: Glucose 47 mg/dL (70-105)
[2020-01-31] MEDS: Vancomycin 1 GM in Premix Bag 1 BAG IVPB SCH (06:19)
[2020-01-31] MEDS: Morphine 4 MG/ML VIAL SLOW IVP PRN ×4 (07:28→23:03)
[2020-01-31] MEDS: Insulin Glargine 15 UNITS in Pre-Filled Syringe 1 EACH SC SCH ×2 (07:32→21:37)
--- NOTE | 2020-01-31 07:40 | PRG ---
DATE OF SERVICE: 01/30/2020 SUBJECTIVE: This is a 59-year-old female with hypertension and diabetes mellitus, hospitalized with abdominal pain and anemia. There is no history of any hematochezia or any melena. She is on IV antibiotics and appears comfortable, but every time when I palpate the abdomen, she starts hollering and she has pain. She had no nausea or vomiting. She is currently tolerating clear liquid diet. She has scalp abscess and is being seen by Dr. Bloom for possible I and D for tomorrow. The patient is acidotic and also has bandemia with benign abdomen. I am not really sure about the etiology of the acidosis and also the bandemia. Of course, she has some scalp infection, that could cause leukocytosis, but I am not really sure she can have this much leukocytosis. She had no stool today. She is on [place] for the pain medicine. OBJECTIVE: GENERAL: Appears comfortable, in no distress until abdomen is palpated. VITAL SIGNS: Afebrile, pulse is 90, blood pressure 128/78. HEENT: Conjunctivae are clear. CARDIOVASCULAR: First and second heart sounds are normal. LUNGS: Clear to auscultation. ABDOMEN: Soft and nondistended. Abdomen is not full, and I could not really appreciate any guarding. She is soft. She is tender mostly over the left lower quadrant area. Bowel sounds are active. LABORATORY DATA: From today, WBC remained unchanged at 28,000, hemoglobin 9.1, hematocrit 26.2, MCV 89.3, platelet count 379,000, polymorphs 73, bandemia still 12%, lymphocytes 7. Chemistry panel; sodium is 136, potassium 3, chloride 118, bicarb 30, BUN is 31, creatinine is 1.30, glucose is 89, calcium is 7.9, magnesium 2.2. Bilirubin 0.2. Transaminases are normal. Albumin 1.8. IMPRESSION: 1. Abdominal pain, etiology unclear. 2. Acidosis and bandemia. Again, with the findings being minimal, I am unable to explain the acidosis and the bandemia. She does have a scalp infection, and I am really not sure that can cause this much bandemia. 3. Chronic kidney disease. 4. Diabetes mellitus. 5. Hypertension. PLAN: EGD and colonoscopy tomorrow. She can be prepped. I did talk to her and explained to her about the bowel prep including the GoLYT[place] . She was encouraged to drink 1 cup every 10 minutes starting early this afternoon. We will plan for EGD and colonoscopy tomorrow. Job ID: [id number]
[2020-01-31] MEDS ORDERED: D5 1/2 NS w/30 mEq KCL 1,000 ML IV SCH (07:45)
[2020-01-31] MEDS: Polyethylene Glycol 3350 17 GM Packet PO SCH (08:04)
[2020-01-31] MEDS ORDERED: PROPOFOL 200 MG/20 ML VIAL ONE (09:33)
--- NOTE | 2020-01-31 10:11 | PRG ---
DATE OF SERVICE: SUBJECTIVE: Ms. Sal, as I went into the room, is resting comfortably. She states that she is having persistent lower abdominal pain. She has not had any nausea or vomiting. She has not had a fever. Heart rate has been 85 to 100, currently 98.4 degrees, 100 heart rate, 18 respiratory rate, and blood pressure 138/73. Her CO2 remains very low at 12. Sodium 139, potassium 3.3, glucose was 47. I have changed her IV fluids to D5 half-normal saline with 30K. White count remains elevated at 28,000, hemoglobin 9.1 yesterday. Repeat CBC pending this morning. OBJECTIVE: LUNGS: Clear to auscultation. No wheezing. CARDIAC: Regular rate and rhythm. ABDOMEN: Soft, but nondistended, non-tympanitic. Bowel sounds present. She is tender throughout her abdominal cavity. She does have guarding. ASSESSMENT AND PLAN: Severe anemia, persistent acidosis and leukocytosis. CAT scan of the abdomen and pelvis on 01/29/2020, revealed bilateral pleural effusions, splenic infarct, small amount of free fluid in the abdomen and pelvis, mild chronic diverticulosis. There is no bowel wall thickening. The patient is scheduled to have an EGD and colonoscopy today with Dr. Ely, await these results. Continue IV fluid support until evaluation is complete. Job ID: [id number]
--- NOTE | 2020-01-31 10:12 | PDOC.HOSPP ---
- Subjective Encounter Date: 01/31/20 Subjective: Still complaining of abdominal pain. Lost her IV access and no labs were obtained this morning. - Objective Vital Signs & Weight: Vital Signs (12 hours) Temp Pulse Resp BP Pulse Ox 01/31/20 08:25 10 L 01/31/20 07:34 18 138/73 01/31/20 07:17 98.4 F 100 14 105/88 96 01/31/20 04:00 97.6 F 85 18 167/93 H 97 01/30/20 23:59 98.3 F 85 18 137/76 95 Weight Admit Weight 134 lb 7.68 oz Weight 134 lb 7.68 oz I&O: 01/30/20 01/31/20 02/01/20 06:59 06:59 06:59 Intake Total 3460 6250 Output Total 960 1500 Balance 2500 4750 Result Diagrams: 01/30/20 05:41 01/31/20 05:34 Additional Labs: Accuchecks 01/30/20 01/30/20 01/30/20 20:40 16:10 11:12 POC Glucose 75 75 85 Hospitalist ROS - Medication Medications: Active Medications Generic Name Dose Route Start Last Admin Trade Name Freq PRN Reason Stop Dose Admin Acetaminophen 650 mg 01/28/20 20:43 01/29/20 08:20 Tylenol PO 650 mg Q4H PRN Administration Headache/Fever/Mild Pain (1-3) Hydrocodone Bitart/Acetaminophen 1 tab 01/28/20 20:43 01/30/20 11:46 [place] 5/325 PO 1 tab Q4H PRN Administration Moderate Pain (4-6) Dextrose/Water 25 gm 01/28/20 20:43 01/31/20 05:34 Dextrose 50% SLOW IVP 25 gm PRN PRN Administration Hypoglycemia Hydralazine HCl 10 mg 01/28/20 20:41 01/30/20 05:43 Apresoline SLOW IVP 10 mg Q6H PRN Administration SBP GREATER THAN 160 Ceftriaxone Sodium 1 gm/ 100 mls @ 200 mls/hr 01/29/20 20:00 01/30/20 20:49 Sodium Chloride IVPB 02/03/20 20:29 100 mls Q24HR DEVORA Administration Insulin Glargine 15 units/ 0.15 mls @ 0 mls/hr 01/28/20 21:00 01/31/20 07:32 Miscellaneous Medication SC Not Given BID DEVORA Vancomycin HCl 1 gm/ Device 200 mls @ 200 mls/hr 01/29/20 06:00 01/31/20 06: 19 IVPB 02/04/20 06:59 200 mls 0600 DEVORA Administration Metronidazole 500 mg/ Device 100 mls @ 100 mls/hr 01/30/20 14:00 01/31/20 05: 07 IVPB 100 mls Q8HR DEVORA Administration Insulin Human Lispro 0 units 01/28/20 20:43 01/29/20 17:47 Humalog SC 2 unit .MODERATE SLIDING SC PRN Administration Moderate Correctional Scale Morphine Sulfate 3 mg 01/29/20 13:26 01/31/20 07:28 Morphine SLOW IVP 3 mg Q4H PRN Administration Severe Pain (7-10) Ondansetron HCl 4 mg 01/28/20 20:41 01/29/20 21:19 Zofran IVP 4 mg Q6H PRN Administration Nausea/Vomiting use 1st Pantoprazole Sodium 40 mg 01/29/20 09:00 01/31/20 07:31 Protonix PO 40 mg DAILY DEVORA Administration Polyethylene Glycol 17 gm 01/29/20 09:00 01/31/20 08:04 Miralax PO Not Given DAILY DEVORA - Exam General Appearance: awake alert Neck: supple Gastrointestinal: soft, tender to palpation Neurological: cranial nerve grossly intact, no focal deficits Hosp A/P (1) Sepsis Code(s): A41.9 - SEPSIS, UNSPECIFIED ORGANISM Status: Acute (2) [place] (acute kidney injury) Code(s): N17.9 - ACUTE KIDNEY FAILURE, UNSPECIFIED Status: Acute (3) Anemia due to blood loss Code(s): D50.0 - IRON DEFICIENCY ANEMIA SECONDARY TO BLOOD LOSS (CHRONIC) Status: Acute (4) Abdominal pain Code(s): R10.9 - UNSPECIFIED ABDOMINAL PAIN Status: Acute Qualifiers: Abdominal location: generalized Qualified Code(s): R10.84 - Generalized abdominal pain (5) UTI (urinary tract infection) Status: Acute (6) DM2 (diabetes mellitus, type 2) Status: Chronic (7) Hypertension Code(s): I10 - ESSENTIAL (PRIMARY) HYPERTENSION Status: Chronic - Plan COVID -TIVE Cr level improving with hydration. GI planning endoscopy and colonoscopy. Scalp abcess for planned I&D E coli in the urine sensitive to ceftriaxone. Leukocytosis is persistent despite vancomycin and ceftriaxone. Bandemia is risisng. The paitient continues to complain of abdominal pain. Add metronidazole to cover for intra abdominal infectious possibility. CT Abd/ Pelvis was unremarkable but was a non contrast study. Ordered PICC placement.
[2020-01-31] MEDS ORDERED: Potassium Chloride 30 MEQ in Dextrose 5 %-0.45 % NaCl 1,000 ML IV SCH (11:45)
[2020-01-31] MEDS ORDERED: Dextrose 50% Abboject 50 ML SYRINGE ONE (12:03)
--- NOTE | 2020-01-31 12:10 | SPC ---
Sonographic guided left upper extremity PICC placement HISTORY: UTI. FINDINGS: After explaining the procedure and answering all questions, left upper extremity was preppe d and draped in usual sterile fashion. Sterile technique, buffered local anesthesia, sonographic guidance, and a 22-gauge needle were used to carefully access the left brachial vein. Standard techni que was used to place the tip of a 5 [place] dual-lumen PICC so that the tip lies at the level of the cavoatrial junction. Catheter was flushed and secured externally. Patient tolerated the procedure well and was returned in unchanged condition. Fluoroscopy time 0 seconds. IMPRESSION : Left upper extremity PICC is ready for use.
[2020-01-31] MEDS ORDERED: Naloxone HCl 0.4 mg/ml Vial ONE (12:24)
[2020-01-31] MEDS ORDERED: Ketamine 50 MG/ML (10ML VIAL) ONE (12:43)
[2020-01-31 13:25] LABS: PTT 31.4 SEC (22.9-36.1); Prothrombin Time 12.9 SEC (12.0-14.7)
[2020-01-31 13:33] LABS: Hemoglobin 7.8 g/dL (12.0-16.0); Mean Corpuscular HGB CONC 33.2 g/dL (32.0-36.0); Mean Corpuscular Hemoglobin 30.7 pg (27.0-31.0); Mean Corpuscular Volume 92.6 fL (78.0-98.0); Mean Platelet Volume 6.4 fL (7.4-10.4); Platelet Count 429 thou/uL (130-400); RBC Distribution Width 18.8 % (11.5-14.5); Red Blood Cell (RBC) Count 2.54 mill/uL (4.20-5.40); White Blood Cell (WBC) Count 22.6 thou/uL (4.8-10.8)
[2020-01-31 13:38] LABS: Protein C Activity 71 % (78-152)
[2020-01-31 13:43] LABS: D-Dimer Test 3.53 *mcg/mL (0.27-0.43)
[2020-01-31] MEDS ORDERED: Promethazine HCl 25 MG/ML VIAL IM PRN (13:52)
[2020-01-31] MEDS ORDERED: Ondansetron HCl/PF 4 MG/2 ML Vial IVP PRN (13:52)
[2020-01-31] MEDS ORDERED: Promethazine HCl 25 MG/ML VIAL SLOW IVP PRN (13:52)
[2020-01-31 13:56] LABS: Factor VIII Test 363.1 % ACTIVE (56-157)
[2020-01-31 14:28] LABS: Anisocytosis MODERATE=16-30 cells (100X) (0-5/hpf); Band 12 % (5-11); Eosinophils 1 % (0-10); Helmet Cells SLIGHT = 2-5 cells (100X) (0-1/hpf); Hypochromia SLIGHT = 6-15 cells (100X) (0-5/hpf); Lymphocytes 7 % (21-51); MDiff Complete? YES; Metamyelocyte 1 % (0-0); Monocytes 1 % (0-10); Neutrophil 77 % (42-75); Ovalocytes SLIGHT = 2-5 cells (100X) (0-1/hpf); Poikilocytosis MODERATE=16-30 cells (100X) (0-5/hpf); Reactive Lymphocytes 1 % (0-10); Schistocytes SLIGHT = 2-5 cells (100X) (0-1/hpf)
[2020-01-31] MEDS: hydrALAZINE 20 MG/ML VIAL SLOW IVP PRN (16:10)
--- NOTE | 2020-01-31 20:10 | OP ---
DATE OF PROCEDURE: 01/31/2020 PROCEDURE PERFORMED: Colonoscopy. PREOPERATIVE DIAGNOSES: Abdominal pain, constipation, anemia of recent onset. The patient hospitalized over the weekend. She had abdominal pain and also constipation. Her pain is over the lower abdomen, where she is markedly tender. She also had leukocytosis with bandemia. She underwent colonoscopy. POSTOPERATIVE DIAGNOSES: 1. Large amount of thick liquid dark stool throughout the colon, which made the exam somewhat difficult. 2. Sigmoid diverticular disease and no diverticulitis seen. 3. No colitis seen. 4. Hemorrhoids. 5. No colonic obstruction seen. The exam has been good except for some retained stool which made the exam somewhat limited. DESCRIPTION OF PROCEDURE: The patient was placed on her left lateral position and was given sedation by Anesthesia Department. A rectal exam was done before the scope was advanced into rectum. Following the rectal exam, there was large amount of thick dark stool which came out. She probably passed about 300 mL of dark liquid stool. No lesions felt on rectal exam. A Pentax video colonoscope was introduced in the rectum and advanced all the way to cecum. The ileocecal area, appendicular opening appeared healthy. Although the patient complains of abdominal pain, although she is markedly tender over the lower abdomen, on endoscopy, no colitis seen. The mucosa appears normal. Withdrawal from the cecum, ascending colon, no pathology seen. The hepatic flexure, transverse colon, splenic flexure, descending colon, no lesion seen. The sigmoid colon mucosa appeared normal. There was no colitis seen. She does have sigmoid diverticular disease. Retroflexion of scope in the rectum showed hemorrhoids and felt to have some liquid stool. Job ID: [id number]
[2020-01-31] MEDS: Ondansetron PF 4 MG/2 ML Vial IVP PRN (20:15)
[2020-01-31] MEDS: HYDROcodone/Acetaminophen 5/325 mg Tablet PO PRN (20:16)
[2020-01-31] MEDS: cefTRIAXone\\ROCEPHIN 1 GM in Sodium Chloride 0.9% 100 ML IVPB SCH (20:16)
--- NOTE | 2020-01-31 20:52 | OP ---
DATE OF PROCEDURE: 01/31/2020 PROCEDURE PERFORMED: Esophagogastroduodenoscopy. PREOPERATIVE DIAGNOSES: A 59-year-old female with abdominal pain and profound anemia. The admitting CBC showed hemoglobin 5.4. She has no history of hematochezia or melena. She underwent esophagogastroduodenoscopy. POSTOPERATIVE DIAGNOSES: Normal esophagogastroduodenoscopy. There was no pathology seen. No abdominal pain or the anemia. DESCRIPTION OF PROCEDURE: The patient was placed on her left lateral position and was given sedation by Anesthesia Department. A Pentax video gastroscope under direct vision passed down the oropharynx past the GE junction into the stomach and subsequently into the descending duodenum. The esophageal mucosa appeared normal. In the GE junction, no lesion seen. Retroflexion failed to show any pathology in fundus or cardia. The gastric body, gastric antrum, no lesion seen. In the duodenal bulb, descending duodenum, no lesions seen. The stomach decompressed and the scope removed. OVERALL IMPRESSION: Although she has severe anemia, on endoscopy, no pathology seen. After transfusion, her blood count came to 9.1, but dropping down again to 7.8. At the time of endoscopy, no pathology seen in the stomach or the colon. RECOMMENDATIONS: Hematology input. Job ID: [id number]
[2020-02-01] MEDS: HYDROcodone/Acetaminophen 5/325 mg Tablet PO PRN (00:49)
[2020-02-01] MEDS: Morphine 4 MG/ML VIAL SLOW IVP PRN (03:32)
[2020-02-01] MEDS: metroNIDAZOLE 500 MG in Premix Bag 1 BAG IVPB SCH ×3 (05:15→21:40)
[2020-02-01] MEDS: Vancomycin 1 GM in Premix Bag 1 BAG IVPB SCH (05:20)
[2020-02-01 05:50] LABS: Band 5 % (5-11); Eosinophils 1 % (0-10); Hemoglobin 7.1 g/dL (12.0-16.0); Lymphocytes 5 % (21-51); MDiff Complete? YES; Mean Corpuscular HGB CONC 33.4 g/dL (32.0-36.0); Mean Corpuscular Hemoglobin 31.7 pg (27.0-31.0); Mean Corpuscular Volume 94.8 fL (78.0-98.0); Mean Platelet Volume 6.6 fL (7.4-10.4); Metamyelocyte 3 % (0-0); Monocytes 7 % (0-10); Neutrophil 79 % (42-75); Platelet Count 417 thou/uL (130-400); Platelet Morphology Comment Appears Increased; RBC Distribution Width 20.1 % (11.5-14.5); Red Blood Cell (RBC) Count 2.25 mill/uL (4.20-5.40); White Blood Cell (WBC) Count 17.7 thou/uL (4.8-10.8)
[2020-02-01 05:59] LABS: Anion Gap 9 mmol/L (10-20); BUN (Urea Nitrogen) 22 mg/dL (9.8-20.1); Calc. Creatinine Clearance 77 mL/min (70-130); Calcium 7.5 mg/dL (7.8-10.44); Carbon Dioxide 15 mmol/L (22-29); Chloride 119 mmol/L (98-107); Estimated GFR-MDRD 79; Glucose 81 mg/dL (70-105); Potassium 3.6 mmol/L (3.5-5.1); Sodium 139 mmol/L (136-145)
[2020-02-01] MEDS ORDERED: Lidocaine 1% w/Epinephrine 1:100K 20 ML VIAL ONE (09:40)
[2020-02-01] MEDS ORDERED: Bupivacaine PF 0.5% 30 ML VIAL ONE (09:40)
[2020-02-01] MEDS ORDERED: Midazolam HCl 2 mg/2 ml Vial ONE (09:45)
[2020-02-01] MEDS ORDERED: Fentanyl 100 MCG/2 ML VIAL ONE (09:45)
[2020-02-01] MEDS ORDERED: Ondansetron PF 4 MG/2 ML Vial ONE (09:50)
[2020-02-01] MEDS ORDERED: Succinylcholine Chloride 20 MG/ML 10 ml SYRINGE FS ONE (09:50)
[2020-02-01] MEDS ORDERED: Lidocaine 1% PF 5 ML VIAL ONE (09:50)
[2020-02-01] MEDS ORDERED: Rocuronium Bromide 10 MG/ML (10ML VIAL) ONE (09:50)
[2020-02-01] MEDS ORDERED: PHENYLEPHRINE-NS 100 MCG/ML 10 ML SYRINGE ONE (09:50)
[2020-02-01] MEDS ORDERED: PROPOFOL 200 MG/20 ML VIAL ONE (09:50)
[2020-02-01] MEDS ORDERED: Glycopyrrolate 0.2 MG/ML 5 ML SYRINGE ONE (09:50)
--- NOTE | 2020-02-01 10:15 | PDOC.HOSPP ---
- Subjective Encounter Date: 02/01/20 Subjective: Stated that her pain is better today. - Objective Vital Signs & Weight: Vital Signs (12 hours) Temp Pulse Resp BP Pulse Ox 02/01/20 07:18 97.9 F 94 20 148/63 H 96 02/01/20 04:00 97.7 F 93 18 139/75 96 Weight Admit Weight 134 lb 7.68 oz Weight 134 lb 7.68 oz I&O: 01/31/20 02/01/20 02/02/20 06:59 06:59 06:59 Intake Total 6250 2570 Output Total 1500 1200 Balance 4750 1370 Result Diagrams: 02/01/20 05:30 02/01/20 05:30 Additional Labs: Accuchecks 02/01/20 01/31/20 01/31/20 06:09 20:28 16:04 POC Glucose 83 89 84 01/31/20 01/31/20 01/31/20 15:29 14:18 12:39 POC Glucose 76 57 L* 95 01/31/20 01/31/20 06:29 05:35 POC Glucose 111 H 52 L* Hospitalist ROS - Medication Medications: Active Medications Generic Name Dose Route Start Last Admin Trade Name Freq PRN Reason Stop Dose Admin Acetaminophen 650 mg 01/28/20 20:43 01/29/20 08:20 Tylenol PO 650 mg Q4H PRN Administration Headache/Fever/Mild Pain (1-3) Hydrocodone Bitart/Acetaminophen 1 tab 01/28/20 20:43 02/01/20 00:49 [place] 5/325 PO 1 tab Q4H PRN Administration Moderate Pain (4-6) Dextrose/Water 25 gm 01/28/20 20:43 01/31/20 05:34 Dextrose 50% SLOW IVP 25 gm PRN PRN Administration Hypoglycemia Hydralazine HCl 10 mg 01/28/20 20:41 01/31/20 16:10 Apresoline SLOW IVP 10 mg Q6H PRN Administration SBP GREATER THAN 160 Ceftriaxone Sodium 1 gm/ 100 mls @ 200 mls/hr 01/29/20 20:00 01/31/20 20:16 Sodium Chloride IVPB 02/03/20 20:29 100 mls Q24HR DEVORA Administration Insulin Glargine 15 units/ 0.15 mls @ 0 mls/hr 01/28/20 21:00 01/31/20 21:37 Miscellaneous Medication SC Not Given BID DEVORA Vancomycin HCl 1 gm/ Device 200 mls @ 200 mls/hr 01/29/20 06:00 02/01/20 05: 20 IVPB 02/04/20 06:59 200 mls 0600 DEVORA Administration Metronidazole 500 mg/ Device 100 mls @ 100 mls/hr 01/30/20 14:00 02/01/20 05: 15 IVPB 100 mls Q8HR DEVORA Administration Potassium Chloride 30 meq/ 1,015 mls @ 125 mls/hr 01/31/20 11:45 01/31/20 14: 39 Dextrose/Sodium Chloride IV 1,015 mls INF DEVORA Administration Insulin Human Lispro 0 units 01/28/20 20:43 01/29/20 17:47 Humalog SC 2 unit .MODERATE SLIDING SC PRN Administration Moderate Correctional Scale Morphine Sulfate 3 mg 01/29/20 13:26 02/01/20 03:32 Morphine SLOW IVP 3 mg Q4H PRN Administration Severe Pain (7-10) Ondansetron HCl 4 mg 01/28/20 20:41 01/31/20 20:15 Zofran IVP 4 mg Q6H PRN Administration Nausea/Vomiting use 1st Pantoprazole Sodium 40 mg 01/29/20 09:00 01/31/20 07:31 Protonix PO 40 mg DAILY DEVORA Administration Polyethylene Glycol 17 gm 01/29/20 09:00 01/31/20 08:04 Miralax PO Not Given DAILY DEVORA - Exam General Appearance: awake alert, ill appearing ENT: normocephalic atraumatic Respiratory: normal chest expansion, no tachypnea Gastrointestinal: soft, tender to palpation Neurological: cranial nerve grossly intact, no focal deficits Hosp A/P (1) Sepsis Code(s): A41.9 - SEPSIS, UNSPECIFIED ORGANISM Status: Acute (2) [place] (acute kidney injury) Code(s): N17.9 - ACUTE KIDNEY FAILURE, UNSPECIFIED Status: Acute (3) Anemia due to blood loss Code(s): D50.0 - IRON DEFICIENCY ANEMIA SECONDARY TO BLOOD LOSS (CHRONIC) Status: Acute (4) Abdominal pain Code(s): R10.9 - UNSPECIFIED ABDOMINAL PAIN Status: Acute Qualifiers: Abdominal location: generalized Qualified Code(s): R10.84 - Generalized abdominal pain (5) UTI (urinary tract infection) Status: Acute (6) DM2 (diabetes mellitus, type 2) Status: Chronic (7) Hypertension Code(s): I10 - ESSENTIAL (PRIMARY) HYPERTENSION Status: Chronic (8) Hyperchloremic metabolic acidosis Code(s): E87.2 - ACIDOSIS Status: Acute (9) Splenic infarction Code(s): D73.5 - INFARCTION OF SPLEEN Status: Acute (10) Anemia Code(s): D64.9 - ANEMIA, UNSPECIFIED Status: Acute - Plan COVID -TIVE Cr level improved with hydration. Scalp abcess for planned I&D E coli in the urine sensitive to ceftriaxone. Leukocytosis started to improve. Continue Vancomycin, ceftriaxone, and metronidazole. Hyperchloremic non gap metabolic acidosis is improving. Persistent worsening macrocytic normochromic anemia. No evidence of GI bleeding on EGD and colonoscopy. Iron studies suggesting anemia due to chronic disease. Hemolysis cannot be ruled out. Check haptoglobin, LDH, Gissell test. CT abd positive for splenic infarct. ? Septic emboli from endocarditis vs intra abominal infectious process. Chech echocardiogram. Surgical team considering Laparoscopy to rule out bowel ischemia due to persistent pain and acidosis.
[2020-02-01] MEDS ORDERED: SUGAMMADEX SODIUM 200 MG/2 ML VIAL ONE (10:46)
[2020-02-01] MEDS ORDERED: Ondansetron HCl/PF 4 MG/2 ML Vial IVP PRN (11:24)
[2020-02-01] MEDS ORDERED: Promethazine HCl 25 MG/ML VIAL IM PRN (11:24)
[2020-02-01] MEDS ORDERED: Promethazine HCl 25 MG/ML VIAL SLOW IVP PRN (11:24)
[2020-02-01] MEDS: Insulin Glargine 15 UNITS in Pre-Filled Syringe 1 EACH SC SCH ×2 (12:47→21:39)
[2020-02-01] MEDS: Polyethylene Glycol 3350 17 GM Packet PO SCH (14:26)
[2020-02-01] MEDS: Dextrose 5%-Lactated Ringers 1,000 ML IV SCH ×2 (14:26→23:39)
[2020-02-01 17:47] LABS: Cardiolipin IgA Ab 2.3 APL-U/mL (<14 Negative); Cardiolipin IgG Ab 0.7 GPL-U/mL (<10 Negative); Cardiolipin IgM Ab 3.4 MPL-U/mL (<10 Negative); EliA APS New Method **** NEW METHOD ****
[2020-02-01] MEDS: cefTRIAXone\\ROCEPHIN 1 GM in Sodium Chloride 0.9% 100 ML IVPB SCH (20:50)
--- NOTE | 2020-02-02 00:16 | CON ---
DATE OF CONSULTATION: REASON FOR CONSULTATION: Anemia. HISTORY OF PRESENT ILLNESS: Ms. Sal is a 59-year-old female with medical history of diabetes, chronic UTI, who presented to the emergency room for weakness over the last 3 or 4 days. She also had a scalp abscess. CBC showed a white count of 28.2, hemoglobin of 5.5, and a platelet count of 465,000. She had a creatinine of 1.85 from her baseline of around 1. She was admitted, started on empiric antibiotics and IV hydration. She was given 2 units of packed RBCs. She denied any melena, hematochezia, hemoptysis, or hematuria. She has undergone both EGD and colonoscopy, which showed no evidence of bleed. She has had a CT scan of her abdomen and pelvis, which was unremarkable. She has had some stomach pain that she has been admitted for in the past at least twice in this year. She has been on antibiotics for UTI from prior admission. Her hemoglobin has ranged from 8.7 to 11 over the last several months, 5.5 this admission is her lowest. Her iron studies point to anemia of chronic disease. She has normal folate and B12. She is COVID negative. PAST MEDICAL HISTORY: 1. Diabetes type 2. 2. Chronic low back pain. 3. Recurrent UTI. PAST SURGICAL HISTORY: 1. Lumbar fusion. 2. Cholecystectomy. 3. Hysterectomy. 4. Hip repair. ALLERGIES: SULFA. HOME MEDICATIONS: 1. Ditropan. 2. Zanaflex. FAMILY HISTORY: Noncontributory. SOCIAL HISTORY: , lives with her . Uses a wheelchair at home. REVIEW OF SYSTEMS: Positive for stomach discomfort and right scalp pain. Otherwise, negative. PHYSICAL EXAMINATION: VITAL SIGNS: Temperature is 97.6, pulse is 90, respiratory rate 19, BP is 126/77, she is 96% on room air. GENERAL: This is a chronically ill-appearing female, in no acute distress. HEENT: Normocephalic. She has a dressing to her right scalp to suction with small amount of red drainage. She has rotten teeth. NECK: Supple. CV: Regular rate and rhythm. LUNGS: Clear. ABDOMEN: Soft and nontender. Bowel sounds are positive. EXTREMITIES: No clubbing or cyanosis. SKIN: She has scattered sores on her arms and legs. NEUROLOGIC: Nonfocal. PERTINENT LABS AND X-RAYS: Current WBCs 17.7, hemoglobin 7.1, hematocrit 21.4, platelet count 417,000, 79% neutrophils, 5% lymphocytes, 3 metamyelocytes. PT is 12.9, INR is 1, PTT is 31.4. Sodium 139, potassium 3.6, chloride 119, CO2 is 15, BUN is 22, creatinine 0.75, calcium 7.5, magnesium 1.9, TIBC is 151, ferritin is 917, bilirubin 0.3, AST is 13, ALT is 7, alkaline phosphatase is 116, LDH is 235. Serum total protein is 4.6, albumin 1.6, globulin 3.4, B12 is 839, folate 13.5, TSH 1.29. Urine showed 4+ bacteria. RADIOLOGY: Per HPI. ASSESSMENT: 1. Severe anemia with no evidence of bleed. 2. Protein deficient malnutrition. 3. Right scalp abscess status post incision and drainage. 4. The patient's anemia has slowly trended downward since the beginning of the year to a low of 5.5. She does deny any bleeding and her endoscopy is normal. She has metamyelocytes on her differential. We will check a flow cytometry to rule out any myeloproliferative or myelodysplastic disorder. There is no evidence of hemolysis as her bilirubin and LDH are normal. We did run a Gissell, which was negative. The patient states she eats mostly fast food. I suspect that her diabetes and nutrition play a part in this anemia. We will await further testing for recommendations. The case has been discussed with Dr. Harper. Job ID: [id number]
[2020-02-02] MEDS: HYDROcodone/Acetaminophen 5/325 mg Tablet PO PRN ×3 (04:27→19:57)
[2020-02-02] MEDS: metroNIDAZOLE 500 MG in Premix Bag 1 BAG IVPB SCH (05:14)
[2020-02-02 05:21] LABS: Hemoglobin 6.3 g/dL (12.0-16.0); Mean Corpuscular HGB CONC 32.3 g/dL (32.0-36.0); Mean Corpuscular Hemoglobin 31.1 pg (27.0-31.0); Mean Corpuscular Volume 96.3 fL (78.0-98.0); Mean Platelet Volume 6.4 fL (7.4-10.4); Platelet Count 435 thou/uL (130-400); RBC Distribution Width 19.8 % (11.5-14.5); Red Blood Cell (RBC) Count 2.04 mill/uL (4.20-5.40); White Blood Cell (WBC) Count 14.6 thou/uL (4.8-10.8)
[2020-02-02 05:22] LABS: Band 3 % (5-11); Hypochromia SLIGHT = 6-15 cells (100X) (0-5/hpf); Lymphocytes 11 % (21-51); MDiff Complete? YES; Monocytes 2 % (0-10); Neutrophil 84 % (42-75); Platelet Morphology Comment Appears Increased
[2020-02-02 05:26] LABS: Anion Gap 8 mmol/L (10-20); BUN (Urea Nitrogen) 20 mg/dL (9.8-20.1); Calc. Creatinine Clearance 75 mL/min (70-130); Calcium 7.5 mg/dL (7.8-10.44); Carbon Dioxide 16 mmol/L (22-29); Chloride 119 mmol/L (98-107); Estimated GFR-MDRD 76; Glucose 129 mg/dL (70-105); Potassium 3.6 mmol/L (3.5-5.1); Sodium 139 mmol/L (136-145)
[2020-02-02 05:27] LABS: Vancomycin, Trough 18.8 ug/mL
[2020-02-02] MEDS: Vancomycin 1 GM in Premix Bag 1 BAG IVPB SCH (06:11)
--- NOTE | 2020-02-02 07:10 | OP ---
DATE OF PROCEDURE: 02/01/2020 PREOPERATIVE DIAGNOSES: Abdominal pain, acidosis, splenic infarct, leukocytosis, negative CAT scan of the abdomen and pelvis, negative upper and lower endoscopy, two months ago normal small-bowel follow-through. Complex multiloculated abscess in right posterolateral scalp, parietal-occipital, 5.5 cm in diameter completion wound after debridement. ANESTHESIA: General, local 0.5% Marcaine 30 mL mixed with 1% Xylocaine with epinephrine, 20 mL. PROCEDURES PERFORMED: Diagnostic laparoscopy, noting normal abdominal cavity, small bowel run from the cecum to the ligament of Treitz without adhesions without abnormality. Excision of multiloculated abscess, right parieto-occipital scalp, excision of skin and subcutaneous tissue, necrotic and multiloculated infected down to the scalp musculature. Cultures and sensitivity submitted. Viable tissue remaining, a resultant wound 5.2 x 5.5 cm open wound, to which a wound VAC was applied by the wound care team. DESCRIPTION OF PROCEDURE: The patient was taken to the operating room, where under general anesthesia, abdomen and scalp were prepared with ChloraPrep, draped in routine fashion. Left lateral subcostal incision made. Pneumoperitoneum to 15 mmHg was obtained with a Veress needle, replaced with a 5 port, video laparoscope inserted. Right subxiphoid incision made and a 5 port placed and an infraumbilical incision made and a 5 port placed. Local anesthetic was infiltrated in the skin and subcutaneous tissue about all port sites. Generally, the abdominal cavity was normal, had a small amount of ascites. Small bowel was normal grossly and was not dilated. Cecum identified, noted to be normal. Small bowel inspected retrograde to the ligament of Treitz looking at the entire small bowel without abnormalities. There were no masses and no signs of ischemia. Grossly, the abdominal cavity was unremarkable. There were adhesions in the pelvis on the left and inferiorly and lateral abdomen from a prior hysterectomy. As no abnormalities were found, pneumoperitoneum reduced. All instruments were removed and all skin incisions were approximated with subdermal 4-0 Monocryl and [place] glue applied. There was one adhesion to the pelvis, taken down with the LigaSure as this created a bridge through which a potential internal hernia could result. Attention was then turned to the scalp. There was a multiloculated abscess with necrotic skin and subcutaneous tissue. Skin and subcutaneous tissue excised sharply with 10 blade, resecting it down to the scalp musculature. Infected tissue excised. Resultant wound as described. Wound irrigated. Local anesthetic was infiltrated in the skin and subcutaneous tissue about the site. Wound Care Team arrived to place a wound VAC. The patient tolerated the procedure well. Job ID: [id number]
[2020-02-02] MEDS: Polyethylene Glycol 3350 17 GM Packet PO SCH (09:13)
[2020-02-02] MEDS: Dextrose 5%-Lactated Ringers 1,000 ML IV SCH ×2 (09:14→20:04)
[2020-02-02] MEDS: Insulin Glargine 15 UNITS in Pre-Filled Syringe 1 EACH SC SCH ×2 (09:15→20:08)
[2020-02-02 10:58] LABS: Reticulocyte Count 10.5 % (0.5-1.5)
--- NOTE | 2020-02-02 11:05 | PDOC.HOSPP ---
- Subjective Encounter Date: 02/02/20 Subjective: Feels much better today. - Objective Vital Signs & Weight: Vital Signs (12 hours) Temp Pulse Resp BP Pulse Ox 02/02/20 11:00 98.6 F 101 H 20 165/81 H 94 L 02/02/20 07:17 98.4 F 101 H 18 164/80 H 96 02/02/20 06:00 98.2 F 99 18 159/77 H 95 02/02/20 00:00 98.8 F 101 H 18 131/70 96 Weight Admit Weight 134 lb 7.68 oz Weight 134 lb 7.68 oz I&O: 02/01/20 02/02/20 02/03/20 06:59 06:59 06:59 Intake Total 2570 Output Total 1200 500 Balance 1370 -500 Result Diagrams: 02/02/20 04:55 02/02/20 04:55 Additional Labs: Accuchecks 02/02/20 02/01/20 02/01/20 06:11 19:38 16:12 POC Glucose 131 H 153 H 127 H Hospitalist ROS - Medication Medications: Active Medications Generic Name Dose Route Start Last Admin Trade Name Freq PRN Reason Stop Dose Admin Acetaminophen 650 mg 01/28/20 20:43 01/29/20 08:20 Tylenol PO 650 mg Q4H PRN Administration Headache/Fever/Mild Pain (1-3) Hydrocodone Bitart/Acetaminophen 1 tab 01/28/20 20:43 02/02/20 04:27 [place] 5/325 PO 1 tab Q4H PRN Administration Moderate Pain (4-6) Dextrose/Water 25 gm 01/28/20 20:43 01/31/20 05:34 Dextrose 50% SLOW IVP 25 gm PRN PRN Administration Hypoglycemia Hydralazine HCl 10 mg 01/28/20 20:41 01/31/20 16:10 Apresoline SLOW IVP 10 mg Q6H PRN Administration SBP GREATER THAN 160 Ceftriaxone Sodium 1 gm/ 100 mls @ 200 mls/hr 01/29/20 20:00 02/01/20 20:50 Sodium Chloride IVPB 02/03/20 20:29 100 mls Q24HR DEVORA Administration Insulin Glargine 15 units/ 0.15 mls @ 0 mls/hr 01/28/20 21:00 02/02/20 09:15 Miscellaneous Medication SC 0.15 mls BID DEVORA Administration Vancomycin HCl 1 gm/ Device 200 mls @ 200 mls/hr 01/29/20 06:00 02/02/20 06: 11 IVPB 02/04/20 06:59 200 mls 0600 DEVORA Administration Potassium Chloride 30 meq/ 1,015 mls @ 125 mls/hr 01/31/20 11:45 01/31/20 14: 39 Dextrose/Sodium Chloride IV 1,015 mls INF DEVORA Administration Dextrose/Lactated Ringer's 1,000 mls @ 100 mls/hr 02/01/20 08:00 02/02/20 09: 14 D5 Lr IV Not Given .Q10H DEVORA Insulin Human Lispro 0 units 01/28/20 20:43 01/29/20 17:47 Humalog SC 2 unit .MODERATE SLIDING SC PRN Administration Moderate Correctional Scale Morphine Sulfate 3 mg 01/29/20 13:26 02/01/20 03:32 Morphine SLOW IVP 3 mg Q4H PRN Administration Severe Pain (7-10) Ondansetron HCl 4 mg 01/28/20 20:41 01/31/20 20:15 Zofran IVP 4 mg Q6H PRN Administration Nausea/Vomiting use 1st Pantoprazole Sodium 40 mg 01/29/20 09:00 02/02/20 09:13 Protonix PO 40 mg DAILY DEVORA Administration Polyethylene Glycol 17 gm 01/29/20 09:00 02/02/20 09:13 Miralax PO 17 gm DAILY DEVORA Administration - Exam General Appearance: awake alert Neck: supple Respiratory: normal chest expansion, no tachypnea Gastrointestinal: soft, normal bowel sounds Neurological: cranial nerve grossly intact, no focal deficits Hosp A/P (1) Sepsis Code(s): A41.9 - SEPSIS, UNSPECIFIED ORGANISM Status: Acute (2) [place] (acute kidney injury) Code(s): N17.9 - ACUTE KIDNEY FAILURE, UNSPECIFIED Status: Acute (3) Anemia due to blood loss Code(s): D50.0 - IRON DEFICIENCY ANEMIA SECONDARY TO BLOOD LOSS (CHRONIC) Status: Acute (4) Abdominal pain Code(s): R10.9 - UNSPECIFIED ABDOMINAL PAIN Status: Acute Qualifiers: Abdominal location: generalized Qualified Code(s): R10.84 - Generalized abdominal pain (5) UTI (urinary tract infection) Status: Acute (6) DM2 (diabetes mellitus, type 2) Status: Chronic (7) Hypertension Code(s): I10 - ESSENTIAL (PRIMARY) HYPERTENSION Status: Chronic (8) Hyperchloremic metabolic acidosis Code(s): E87.2 - ACIDOSIS Status: Acute (9) Splenic infarction Code(s): D73.5 - INFARCTION OF SPLEEN Status: Acute (10) Anemia Code(s): D64.9 - ANEMIA, UNSPECIFIED Status: Acute - Plan COVID -TIVE Cr level improved with hydration. Scalp abcess S/P I&D POD1. Prelim cultures showing s.aureus. E coli in the urine sensitive to ceftriaxone. Laparoscopy negative for acute bowel findings. Leukocytosis improving. Continue Vancomycin and ceftriaxone. DC metronidazole. Hyperchloremic non gap metabolic acidosis is improving. Persistent worsening macrocytic normochromic anemia. No evidence of GI bleeding on EGD and colonoscopy. Iron studies suggesting anemia due to chronic disease. Hemolysis unlikely as haptoglobin, LDH, Gissell test are negative. Transfusing [address] abd positive for splenic infarct. ? Septic emboli from endocarditis vs intra abominal infectious process. Chech echocardiogram.
--- NOTE | 2020-02-02 13:04 | PRG ---
DATE OF SERVICE: 02/02/2020 Tomi Sal is doing well today. She underwent diagnostic laparoscopy, which was completely normal yesterday. She is afebrile. She is tolerating her diet. During the night, she removed wound VAC from her scalp. She denies any knowledge of this and does not know how it happened. This morning, her wound looks very good. It is granulating and there is no evidence of infection. At this point, I would recommend to continue wound care, wash the wound with soap and water daily, and apply a normal saline wet-to-dry dressing. The family could be instructed on wound care and home health can be ordered. At this point, I will see her as needed. She can follow up in my office in the next 3 to 4 weeks. ADDENDUM: Her cultures intraoperatively of the scalp wound revealed gram-positive cocci Staph. This wound is without cellulitis, is doing well. She can be discharged home on oral antibiotics for 4 to 5 days, probably Keflex or Bactrim or Cipro. It is not necessary to wait on sensitivities. The drain and surgical procedure should take care of the problem. The patient has had a hypercoagulable state workup that is negative to date. She did have a splenic infarct. No other treatment is necessary for this. The etiology of her abdominal pain is uncertain. At this point, I will see her as needed this hospitalization, please call if necessary. I will see her in the office in 2 to 3 weeks. Job ID: [id number]
[2020-02-02] MEDS: cefTRIAXone\\ROCEPHIN 1 GM in Sodium Chloride 0.9% 100 ML IVPB SCH (20:05)
[2020-02-02] MEDS ORDERED: cloNIDine 0.1 MG TAB PO SCH (20:15)
[2020-02-03] MEDS: HYDROcodone/Acetaminophen 5/325 mg Tablet PO PRN ×6 (01:12→22:02)
[2020-02-03] MEDS: Dextrose 5%-Lactated Ringers 1,000 ML IV SCH ×2 (04:29→14:20)
[2020-02-03] MEDS: Vancomycin 1 GM in Premix Bag 1 BAG IVPB SCH (05:09)
[2020-02-03 05:48] LABS: Band 4 % (5-11); Eosinophils 3 % (0-10); Hemoglobin 9.2 g/dL (12.0-16.0); Lymphocytes 20 % (21-51); MDiff Complete? YES; Mean Corpuscular Hemoglobin 30.1 pg (27.0-31.0); Mean Corpuscular Volume 93.8 fL (78.0-98.0); Mean Platelet Volume 6.5 fL (7.4-10.4); Metamyelocyte 1 % (0-0); Monocytes 6 % (0-10); Neutrophil 66 % (42-75); Platelet Count 404 thou/uL (130-400); Platelet Morphology Comment Appears Increased; Potassium 3.5 mmol/L (3.5-5.1); RBC Distribution Width 17.8 % (11.5-14.5); Red Blood Cell (RBC) Count 3.06 mill/uL (4.20-5.40); Sodium 139 mmol/L (136-145); White Blood Cell (WBC) Count 12.4 thou/uL (4.8-10.8)
[2020-02-03 05:49] LABS: Anion Gap 7 mmol/L (10-20); BUN (Urea Nitrogen) 17 mg/dL (9.8-20.1); Calc. Creatinine Clearance 75 mL/min (70-130); Calcium 7.4 mg/dL (7.8-10.44); Carbon Dioxide 17 mmol/L (22-29); Chloride 119 mmol/L (98-107); Estimated GFR-MDRD 76; Glucose 94 mg/dL (70-105)
--- NOTE | 2020-02-03 08:07 | PDOC.MOPN ---
- Vital Signs Vital Signs: Vital Signs (12 hours) Temp Pulse Resp BP BP BP Pulse Ox 02/03/20 07:22 98.9 F 100 16 152/85 H 95 02/03/20 03:35 98.8 F 98 20 143/77 H 97 02/02/20 23:46 99.6 F 103 H 20 161/82 H 95 02/02/20 20:35 183/92 H Weight Admit Weight 134 lb 7.68 oz Weight 134 lb 7.68 oz - Labs Result Diagrams: 02/03/20 05:20 02/03/20 05:20 Lab results: Laboratory Results - last 24 hr 02/03/20 05:20: WBC 12.4 H, RBC 3.06 L, Hgb 9.2 L, Hct 28.7 L, MCV 93.8, MCH 30.1, MCHC 32.0, RDW 17.8 H, Plt Count 404 H, MPV 6.5 L, Neutrophils % (Manual) 66, Band Neuts % (Manual) 4 L, Lymphocytes % (Manual) 20 L, Monocytes % (Manual ) 6, Eosinophils % (Manual) 3, Metamyelocytes % (Man) 1 H, Plt Morphology Comment Appears Increased H 02/03/20 05:20: Sodium 139, Potassium 3.5, Chloride 119 H, Carbon Dioxide 17 L, Anion Gap 7 L, BUN 17, Creatinine 0.77, Estimated GFR (MDRD) 76, Glucose 94, Calcium 7.4 L 02/03/20 05:11: POC Glucose 107 02/03/20 03:43: POC Glucose 74 02/02/20 19:03: POC Glucose 99 02/02/20 17:13: POC Glucose 94 02/02/20 11:04: POC Glucose 154 H 02/02/20 10:45: Uric Acid 4.1 02/02/20 10:45: Retic Count 10.5 H, Immature Retic Fraction 0.326 02/01/20 14:37: Flow Cytometry Interp 02/01/20 14:37: Haptoglobin 131 02/01/20 09:56: Blood Type O POSITIVE, Antibody Screen NEGATIVE, Crossmatch See Detail 01/28/20 19:37: Crossmatch See Detail A/P - Problem (1) Anemia Current Visit: Yes Code(s): D64.9 - ANEMIA, UNSPECIFIED Status: Acute - Plan Plan: Hb ranges 8-11 over several months, down to 5.5 this admission. B12 and folate normal, iron studies suggest anemia of chronic disease/inflammation which can also be seen with acute illness such as sepsis. Gissell, Bili, LDH, and haptoglobin normal which excludes hemolysis. Retic is 10% and given she responded to PRBC tranfusion, dropped again, and responded to transfusion again this suggests bleeding as a contributing factor. The macrocytosis is explained by reticulocytosis. EGD and colonoscopy were negative. She may benefit for a capsule endoscopy after discharge. Will sign off.
[2020-02-03] MEDS: Polyethylene Glycol 3350 17 GM Packet PO SCH (08:55)
[2020-02-03] MEDS: Insulin Glargine 15 UNITS in Pre-Filled Syringe 1 EACH SC SCH ×2 (08:55→20:56)
--- NOTE | 2020-02-03 17:01 | PDOC.HOSPP ---
- Subjective Encounter Date: 02/03/20 Subjective: Feels better. - Objective Vital Signs & Weight: Vital Signs (12 hours) Temp Pulse Resp BP Pulse Ox 02/03/20 07:22 98.9 F 100 16 152/85 H 95 Weight Admit Weight 134 lb 7.68 oz Weight 134 lb 7.68 oz I&O: 02/02/20 02/03/20 02/04/20 06:59 06:59 06:59 Intake Total 2200 Output Total 500 1550 Balance -500 650 Result Diagrams: 02/03/20 05:20 02/03/20 05:20 Additional Labs: Accuchecks 02/03/20 02/03/20 02/03/20 15:09 11:27 05:11 POC Glucose 89 129 H 107 02/03/20 02/02/20 02/02/20 03:43 19:03 17:13 POC Glucose 74 99 94 Hospitalist ROS - Medication Medications: Active Medications Generic Name Dose Route Start Last Admin Trade Name Freq PRN Reason Stop Dose Admin Acetaminophen 650 mg 01/28/20 20:43 01/29/20 08:20 Tylenol PO 650 mg Q4H PRN Administration Headache/Fever/Mild Pain (1-3) Hydrocodone Bitart/Acetaminophen 1 tab 01/28/20 20:43 02/03/20 13:54 [place] 5/325 PO 1 tab Q4H PRN Administration Moderate Pain (4-6) Dextrose/Water 25 gm 01/28/20 20:43 01/31/20 05:34 Dextrose 50% SLOW IVP 25 gm PRN PRN Administration Hypoglycemia Hydralazine HCl 10 mg 01/28/20 20:41 01/31/20 16:10 Apresoline SLOW IVP 10 mg Q6H PRN Administration SBP GREATER THAN 160 Ceftriaxone Sodium 1 gm/ 100 mls @ 200 mls/hr 01/29/20 20:00 02/02/20 20:05 Sodium Chloride IVPB 02/03/20 20:29 100 mls Q24HR DEVORA Administration Insulin Glargine 15 units/ 0.15 mls @ 0 mls/hr 01/28/20 21:00 02/03/20 08:55 Miscellaneous Medication SC 0.15 mls BID DEVORA Administration Vancomycin HCl 1 gm/ Device 200 mls @ 200 mls/hr 01/29/20 06:00 02/03/20 05: 09 IVPB 02/04/20 06:59 200 mls 0600 DEVORA Administration Potassium Chloride 30 meq/ 1,015 mls @ 125 mls/hr 01/31/20 11:45 01/31/20 14: 39 Dextrose/Sodium Chloride IV 1,015 mls INF DEVORA Administration Dextrose/Lactated Ringer's 1,000 mls @ 100 mls/hr 02/01/20 08:00 02/03/20 14: 20 D5 Lr IV Not Given .Q10H DEVORA Insulin Human Lispro 0 units 01/28/20 20:43 01/29/20 17:47 Humalog SC 2 unit .MODERATE SLIDING SC PRN Administration Moderate Correctional Scale Morphine Sulfate 3 mg 01/29/20 13:26 02/01/20 03:32 Morphine SLOW IVP 3 mg Q4H PRN Administration Severe Pain (7-10) Ondansetron HCl 4 mg 01/28/20 20:41 01/31/20 20:15 Zofran IVP 4 mg Q6H PRN Administration Nausea/Vomiting use 1st Pantoprazole Sodium 40 mg 01/29/20 09:00 02/03/20 08:55 Protonix PO 40 mg DAILY DEVORA Administration Polyethylene Glycol 17 gm 01/29/20 09:00 02/03/20 08:55 Miralax PO 17 gm DAILY DEVORA Administration - Exam General Appearance: awake alert ENT: normocephalic atraumatic Neck: supple Respiratory: normal chest expansion, no tachypnea Gastrointestinal: soft Neurological: cranial nerve grossly intact, no focal deficits Hosp A/P (1) Sepsis Code(s): A41.9 - SEPSIS, UNSPECIFIED ORGANISM Status: Acute (2) [place] (acute kidney injury) Code(s): N17.9 - ACUTE KIDNEY FAILURE, UNSPECIFIED Status: Acute (3) Anemia due to blood loss Code(s): D50.0 - IRON DEFICIENCY ANEMIA SECONDARY TO BLOOD LOSS (CHRONIC) Status: Acute (4) Abdominal pain Code(s): R10.9 - UNSPECIFIED ABDOMINAL PAIN Status: Acute Qualifiers: Abdominal location: generalized Qualified Code(s): R10.84 - Generalized abdominal pain (5) UTI (urinary tract infection) Status: Acute (6) DM2 (diabetes mellitus, type 2) Status: Chronic (7) Hypertension Code(s): I10 - ESSENTIAL (PRIMARY) HYPERTENSION Status: Chronic (8) Hyperchloremic metabolic acidosis Code(s): E87.2 - ACIDOSIS Status: Acute (9) Splenic infarction Code(s): D73.5 - INFARCTION OF SPLEEN Status: Acute (10) Anemia Code(s): D64.9 - ANEMIA, UNSPECIFIED Status: Acute - Plan COVID -TIVE Cr level improved with hydration. Scalp abcess S/P I&D POD1. Prelim cultures showing s.aureus. E coli in the urine sensitive to ceftriaxone. Laparoscopy negative for acute bowel findings. Leukocytosis improving. Continue Vancomycin and ceftriaxone. DC metronidazole. Hyperchloremic non gap metabolic acidosis is improving. Persistent worsening macrocytic normochromic anemia. No evidence of GI bleeding on EGD and colonoscopy. Iron studies suggesting anemia due to chronic disease. Hemolysis unlikely as haptoglobin, LDH, Gissell test are negative. Transfusing [address] abd positive for splenic infarct. ? Septic emboli from endocarditis vs intra abominal infectious process. Chech echocardiogram. 02/02: Sepsis improving. Scalp culture positive for s.aureus and urine cultre for e coli both sensitive to penicillins. DC tomorrow on augmentin. DC [place].
[2020-02-03] MEDS: cefTRIAXone\\ROCEPHIN 1 GM in Sodium Chloride 0.9% 100 ML IVPB SCH (20:04)
[2020-02-03] MEDS ORDERED: Oxybutynin 5 MG TAB PO SCH (22:00)
[2020-02-04] MEDS: Dextrose 5%-Lactated Ringers 1,000 ML IV SCH ×2 (01:04→11:13)
[2020-02-04] MEDS: HYDROcodone/Acetaminophen 5/325 mg Tablet PO PRN ×3 (04:49→16:09)
[2020-02-04] MEDS: Vancomycin 1 GM in Premix Bag 1 BAG IVPB SCH (04:50)
[2020-02-04 08:18] VITALS: BP 125/71; TEMP 98.5
[2020-02-04] MEDS: Polyethylene Glycol 3350 17 GM Packet PO SCH (09:11)
[2020-02-04] MEDS: Oxybutynin 5 MG TAB PO SCH ×3 (09:11→16:09)
[2020-02-04] MEDS: Insulin Glargine 15 UNITS in Pre-Filled Syringe 1 EACH SC SCH (09:11)
--- NOTE | 2020-02-05 04:57 | DIS ---
DATE OF ADMISSION: 01/28/2020 DATE OF DISCHARGE: 02/04/2020 DISCHARGE DIAGNOSES: 1. Sepsis. 2. Abscess of the scalp. 3. Urinary tract infection due to Escherichia coli. 4. Acute kidney injury. 5. Anemia due to acute blood loss. 6. Abdominal pain. 7. Diabetes mellitus type 2. 8. Hypertension. 9. Hyperchloremic metabolic acidosis. 10. Splenic infarction. 11. Anemia. DISCHARGE MEDICATIONS: 1. Augmentin 875/125 mg orally twice daily for 7 days. 2. Lactinex one tablet orally t.i.d. for 7 days. HISTORY OF PRESENT ILLNESS AND HOSPITAL COURSE: The patient is a 59-year-old female with past medical history of hypertension, diabetes mellitus, and chronic back pain, who presented to the emergency department for a scalp lesion and global weakness for 4-5 days. An area of approximately 4 cm diameter was noted in the right scalp with purulent drainage. Ultrasound of the area revealed loculated abscess. This was successfully drained by I and D during her hospital stay and culture results showed MSSA. The patient's urine analysis at presentation showed evidence of UTI and culture showed growth of E. coli, also sensitive to penicillins. She was managed with vancomycin and ceftriaxone initially and this was changed to Augmentin on discharge. We were able to clear the patient's sepsis during her hospital stay using antibiotics. The patient was also complaining of severe abdominal pain throughout the early part of her hospitalization. This was initially attributed to UTI, but due to persistent pain, she underwent an investigative laparoscopy, which did not reveal any intraabdominal abnormalities. CT scan of the abdomen and pelvis revealed some splenic infarction, which could be the cause of this pain. Echocardiogram was performed and did not show any intracardiac thrombi. She did undergo a COVID-19 test in the ER, which was negative. The patient was also found to be anemic and was transfused 4 units of packed RBCs. She underwent EGD and colonoscopy, which did not reveal any source of bleeding. Hematology service was consulted and multiple studies obtained including Gissell test, bilirubin, LDH, and haptoglobin were all normal excluding hemolysis. The patient could have an occult source of bleeding within her small intestine. I recommend outpatient followup with GI for possible capsule endoscopy. Job ID: [id number]
== END 2020-02-04 16:57 | disposition home or self-care (01) | DRG 854 ==
LOC: ERS 15:35 → T4-A 20:22
PROVIDERS: ADMIT Internal Medicine; ATTEND Internal Medicine
PROC: 30233N1 Transfusion of Nonautologous Red Blood Cells into Peripheral Vein, Percutaneous Approach (ICD-10-PCS; 2020-01-29)
PROC: 0DJD8ZZ Inspection of Lower Intestinal Tract, Via Natural or Artificial Opening Endoscopic (ICD-10-PCS; 2020-01-31)
PROC: 0DJ08ZZ Inspection of Upper Intestinal Tract, Via Natural or Artificial Opening Endoscopic (ICD-10-PCS; 2020-01-31)
PROC: 02HV33Z Insertion of Infusion Device into Superior Vena Cava, Percutaneous Approach (ICD-10-PCS; 2020-01-31)
PROC: B518YZA Fluoroscopy of Superior Vena Cava using Other Contrast, Guidance (ICD-10-PCS; 2020-01-31)
PROC: B548ZZA Ultrasonography of Superior Vena Cava, Guidance (ICD-10-PCS; 2020-01-31)
PROC: 0WJG4ZZ Inspection of Peritoneal Cavity, Percutaneous Endoscopic Approach (ICD-10-PCS; principal; 2020-02-01)
PROC: 0J900ZZ Drainage of Scalp Subcutaneous Tissue and Fascia, Open Approach (ICD-10-PCS; 2020-02-01)
DX: A41.9 Sepsis, unspecified organism (principal); N39.0 Urinary tract infection, site not specified; N17.9 Acute kidney failure, unspecified; E87.2 Acidosis; E87.1 Hypo-osmolality and hyponatremia; L02.811 Cutaneous abscess of head [any part, except face]; J90 Pleural effusion, not elsewhere classified; R18.8 Other ascites; E46 Unspecified protein-calorie malnutrition; E11.9 Type 2 diabetes mellitus without complications; G89.29 Other chronic pain; M54.5 Low back pain; E87.6 Hypokalemia; E11.65 Type 2 diabetes mellitus with hyperglycemia; L98.9 Disorder of the skin and subcutaneous tissue, unspecified; F32.9 Major depressive disorder, single episode, unspecified; F41.9 Anxiety disorder, unspecified; K59.00 Constipation, unspecified; D50.0 Iron deficiency anemia secondary to blood loss (chronic); E86.0 Dehydration; D73.5 Infarction of spleen; B96.20 Unspecified Escherichia coli [E. coli] as the cause of diseases classified elsewhere; N18.9 Chronic kidney disease, unspecified; D63.8 Anemia in other chronic diseases classified elsewhere; N99.4 Postprocedural pelvic peritoneal adhesions; Y83.8 Other surgical procedures as the cause of abnormal reaction of the patient, or of later complication, without mention of misadventure at the time of the procedure; I12.9 Hypertensive chronic kidney disease with stage 1 through stage 4 chronic kidney disease, or unspecified chronic kidney disease; K57.30 Diverticulosis of large intestine without perforation or abscess without bleeding; K64.9 Unspecified hemorrhoids; E11.22 Type 2 diabetes mellitus with diabetic chronic kidney disease; R10.84 Generalized abdominal pain; D53.9 Nutritional anemia, unspecified; B95.61 Methicillin susceptible Staphylococcus aureus infection as the cause of diseases classified elsewhere; Z90.710 Acquired absence of both cervix and uterus; Z90.49 Acquired absence of other specified parts of digestive tract; Z98.1 Arthrodesis status; Z88.2 Allergy status to sulfonamides; Z68.24 Body mass index [BMI] 24.0-24.9, adult
CPT/HCPCS: 36415; 36416; 36430; 36569; 51701; 71045; 74177; 76770; 76999; 80048; 80053; 80076; 80202; 80306; 80307; 81003; 81015; 81240; 81241; 82140; 82607; 82668; 82728; 82746; 83010; 83036; 83090; 83540; 83550; 83605; 83615; 83690; 83735; 83880; 84443; 84484; 84550; 85007; 85025; 85027; 85046; 85240; 85300; 85303; 85305; 85307; 85379; 85598; 85610; 85730; 86147; 86850; 86900; 86901; 87040; 87070; 87077; 87086; 87186; 87205; 87635; 88184; 88185; 93005; 93306; 96365; 96366; 96374; 96375; C1751; J0360; J0696; J1815; J2001; J2250; J2270; J2310; J2405; J2704; J3010; J3370; J3480; J3490; J7042; J7050; P9016; Q9967; S0020; U0003

== ENCOUNTER 2020-02-11 02:04 | Emergency (ER) | payer SELFPAY ==
[2020-02-11] MEDS ORDERED: Phenazopyridine HCl 97.5 MG TABLET ONE ×3 (02:28→02:31)
[2020-02-11] MEDS ORDERED: Phenazopyridine HCl 97.5 MG TABLET PO SCH (02:45)
[2020-02-11] MEDS ORDERED: Acetaminophen 500 MG TAB ONE (03:07)
[2020-02-11 03:13] LABS: Bacteria/HPF None Seen HPF (None Seen); Bilirubin 2+ (Negative); Blood, Urine 1+ (Negative); Clarity Clear (Clear); Glucose, Urine (Dipstick) Greater than 1000 mg/dL (Negative); Leukocyte Negative Leu/uL (Negative); Nitrite 2+ (Negative); Protein, Urine (Dipstick) 600 mg/dL (Neg-Trace); Squamous Epithelial 0-3 HPF (0-3); WBC/HPF 21-50 HPF (0-3)
== END 2020-02-11 04:30 | disposition home or self-care (01) ==
LOC: ERS 02:04
DX: N39.0 Urinary tract infection, site not specified (principal); E11.9 Type 2 diabetes mellitus without complications; M79.7 Fibromyalgia; F32.9 Major depressive disorder, single episode, unspecified; F41.9 Anxiety disorder, unspecified; Z79.4 Long term (current) use of insulin; Z79.899 Other long term (current) drug therapy
CPT/HCPCS: 36416; 51701; 81003; 81015

== ENCOUNTER 2020-02-11 23:08 | Emergency (ER) | payer OTHER, SELFPAY ==
[2020-02-11] MEDS ORDERED: Ketorolac Tromethamine 30 MG/ML VIAL ONE (23:18)
[2020-02-12 00:31] LABS: ALT (SGPT) 9 U/L (8-55); AST (SGOT) 15 U/L (5-34); Albumin 2.1 g/dL (3.5-5.0); Alkaline Phosphatase 90 U/L (40-110); Anion Gap 14 mmol/L (10-20); BUN (Urea Nitrogen) 15 mg/dL (9.8-20.1); Bilirubin, Total Less than 0.2 mg/dL (0.2-1.2); Calc. Creatinine Clearance 0 mL/min (70-130); Calcium 7.4 mg/dL (7.8-10.44); Carbon Dioxide 13 mmol/L (22-29); Chloride 116 mmol/L (98-107); Estimated GFR-MDRD 64; Globulin 2.6 g/dL (2.4-3.5); Glucose 187 mg/dL (70-105); Potassium 3.7 mmol/L (3.5-5.1); Protein, Total 4.7 g/dL (6.0-8.3); Sodium 139 mmol/L (136-145)
[2020-02-12 00:54] LABS: #Basophils 0.1 thou/uL (0.0-0.2); #Eosinphils 0.3 thou/uL (0.0-0.7); #Lymphocytes 1.6 thou/uL (1.20-3.40); #Monocytes 0.5 thou/uL (0.11-0.59); #Neutrophils 5.8 thou/uL (1.40-6.50); %Basophils 1.1 % (0.0-1.0); %Eosinophils 3.2 % (0.0-10.0); %Lymphocytes 19.2 % (21.0-51.0); %Monocytes 5.8 % (0.0-10.0); %Neutrophils 70.6 % (42.0-75.0); Hemoglobin 8.3 g/dL (12.0-16.0); Mean Corpuscular HGB CONC 32.3 g/dL (32.0-36.0); Mean Corpuscular Hemoglobin 31.2 pg (27.0-31.0); Mean Corpuscular Volume 96.8 fL (78.0-98.0); Mean Platelet Volume 7.7 fL (7.4-10.4); Platelet Count 131 thou/uL (130-400); RBC Distribution Width 15.4 % (11.5-14.5); Red Blood Cell (RBC) Count 2.66 mill/uL (4.20-5.40); White Blood Cell (WBC) Count 8.2 thou/uL (4.8-10.8)
[2020-02-12] MEDS ORDERED: Lorazepam 2 MG/ML VIAL ONE (01:05)
--- NOTE | 2020-02-12 07:33 | RAD ---
SINGLE VIEW CHEST: HISTORY: Chest pain. COMPARISON: 01/28/20 FINDINGS: There is a normal sized cardiomediastinal silhouette. There are moderate bilateral pleural effusions with adjacent atelectasis versus infiltrates. Cholecystectomy clips are seen. IMPRESSION: Bilateral pleural effusions with adjacent atelectasis versus infiltrate. POS: EAA
== END 2020-02-12 02:15 | disposition home or self-care (01) ==
LOC: ERS 23:08
DX: R07.89 Other chest pain (principal); E11.9 Type 2 diabetes mellitus without complications; F41.9 Anxiety disorder, unspecified; F32.9 Major depressive disorder, single episode, unspecified; Z79.899 Other long term (current) drug therapy; Z79.4 Long term (current) use of insulin
CPT/HCPCS: 36415; 51701; 71045; 80053; 84484; 85025; 93005; 96372; A4353; J1885; J2060

== ENCOUNTER 2020-02-28 14:35 | Inpatient (IN) | payer OTHER, SELFPAY ==
[2020-02-28] MEDS ORDERED: Vancomycin 1 GM/200 ML BAG ONE (15:35)
[2020-02-28] MEDS ORDERED: cefTRIAXone\\ROCEPHIN 2 GM VIAL ONE (15:35)
[2020-02-28] MEDS ORDERED: Morphine 4 MG/ML VIAL ONE (15:35)
--- NOTE | 2020-02-28 15:44 | RAD ---
RADIOGRAPH CHEST 1 VIEW: DATE: 02/28/2020 TIME: 3:27 PM HISTORY: 59-year-old female with cough COMPARISON: 02/11/2020 FINDINGS: The bilateral pleural effusions have decreased in volume. There is at least a small residual componen t of left pleural effusion. There is a region of opacification of medial base of left lower lobe. The rest of the visualized lung hernnadez are clear. Cardiomediastinal silhouette is normal. No pulmonar y edema or pneumothorax. IMPRESSION: 1. Interval improvement in bilateral pleural effusions. 2. At least some component of left pleural effusion remains. 3. Interval improvement in aeration of lung bases, but at least a small component of opacification of medial basilar segment of left lower lobe remains. 4. The rest of the visualized lung hernandez are clear.
[2020-02-28] MEDS ORDERED: Lorazepam 2 MG/ML VIAL ONE (17:07)
[2020-02-28 17:54] LABS: #Basophils 0.1 thou/uL (0.0-0.2); #Eosinphils 0.1 thou/uL (0.0-0.7); #Lymphocytes 1.2 thou/uL (1.20-3.40); #Monocytes 0.5 thou/uL (0.11-0.59); %Basophils 0.3 % (0.0-1.0); %Eosinophils 0.4 % (0.0-10.0); %Lymphocytes 7.5 % (21.0-51.0); %Monocytes 2.9 % (0.0-10.0); %Neutrophils 88.9 % (42.0-75.0); Hemoglobin 9.2 g/dL (12.0-16.0); Mean Corpuscular HGB CONC 33.1 g/dL (32.0-36.0); Mean Corpuscular Hemoglobin 32.5 pg (27.0-31.0); Mean Corpuscular Volume 98.3 fL (78.0-98.0); Mean Platelet Volume 7.9 fL (7.4-10.4); Platelet Count 289 thou/uL (130-400); RBC Distribution Width 14.3 % (11.5-14.5); Red Blood Cell (RBC) Count 2.81 mill/uL (4.20-5.40); White Blood Cell (WBC) Count 15.8 thou/uL (4.8-10.8)
[2020-02-28 18:24] LABS: ALT (SGPT) 7 U/L (8-55); AST (SGOT) 16 U/L (5-34); Albumin 1.9 g/dL (3.5-5.0); Alkaline Phosphatase 95 U/L (40-110); Anion Gap 11 mmol/L (10-20); BUN (Urea Nitrogen) 14 mg/dL (9.8-20.1); Bilirubin, Total 0.6 mg/dL (0.2-1.2); Calc. Creatinine Clearance 0 mL/min (70-130); Calcium 7.2 mg/dL (7.8-10.44); Carbon Dioxide 21 mmol/L (22-29); Chloride 104 mmol/L (98-107); Estimated GFR-MDRD 78; Globulin 2.4 g/dL (2.4-3.5); Glucose 233 mg/dL (70-105); Lipase Less than 4 U/L (8-78); Protein, Total 4.3 g/dL (6.0-8.3); Sodium 133 mmol/L (136-145)
[2020-02-28 18:27] LABS: Potassium 2.9 mmol/L (3.5-5.1)
--- NOTE | 2020-02-28 19:55 | CT ---
CT ABDOMEN AND PELVIS WITH CONTRAST: History: Abdominal pain. Comparison: 01-29-2020 FINDINGS: Enlarging bilateral pleural effusions. Right upper quadrant surgical clips. Mild third spacing of flu id. Mild presacral soft tissue swelling. Indwelling Pulido catheter. Mild diverticular disease sigmoid col on. Mild wall thickening of the sigmoid colon and descending colon. No free intraperitoneal gas. No hydro nephrosis. Similar appearance of the splenic infarction. The aortoiliac contour is non-aneurysmal. No acute osseous abnormality. IMPRESSION: 1. Progressive third spacing of fluid. 2. Mildly enlarging bilateral pleural effusions. 3. Interpolar splenic infarction involving approximately 15% of the splenic volume, resolving. 4. No evidence of pyelonephritis. 5. Mild wall thickening of the sigmoid colon suggesting a background low grade colitis. POS: HOME
[2020-02-28] MEDS ORDERED: Fentanyl 100 MCG/2 ML VIAL ONE (19:56)
[2020-02-28] MEDS ORDERED: Ondansetron PF 4 MG/2 ML Vial ONE (20:14)
[2020-02-28] MEDS ORDERED: D5 1/2 NS w/40 mEq KCL 1,000 ML IV SCH (20:30)
[2020-02-28 20:36] LABS: Blood, Urine Small (Negative); Leukocyte Large (Negative)
[2020-02-28 20:41] LABS: Bilirubin Unable to Interpret (Negative); Clarity Hazy (Clear); Glucose, Urine (Dipstick) Unable to Interpret mg/dL (Negative); Nitrite Unable to Interpret (Negative); Protein, Urine (Dipstick) Unable to Interpret mg/dL (Neg-Trace); Urobilinogen UNABLE TO INTERPRET mg/dL (Less than 2)
[2020-02-28 20:45] LABS: Bacteria/HPF None Seen HPF (None Seen); Squamous Epithelial 0-3 HPF (0-3)
[2020-02-28] MEDS ORDERED: cloNIDine 0.1 MG TAB PO PRN ×2 (22:05→22:16)
[2020-02-28] MEDS ORDERED: Morphine 2 MG/ML SYRINGE SLOW IVP PRN (22:05)
[2020-02-28] MEDS ORDERED: Promethazine HCl 12.5 MG in Sodium Chloride 0.9% 50 ML IVPB PRN (22:05)
[2020-02-28] MEDS ORDERED: hydrALAZINE 20 MG/ML VIAL SLOW IVP PRN (22:05)
[2020-02-28] MEDS ORDERED: Ondansetron PF 4 MG/2 ML Vial IVP PRN (22:05)
[2020-02-28] MEDS ORDERED: HYDROcodone/Acetaminophen 5/325 mg Tablet PO PRN (22:05)
[2020-02-28] MEDS ORDERED: Labetalol HCl 100 MG/20 ML VIAL SLOW IVP PRN ×2 (22:05→22:16)
[2020-02-28] MEDS ORDERED: Guaifenesin DM 100-10/5 ML UDCUP PO PRN ×2 (22:05→22:16)
[2020-02-28] MEDS ORDERED: Acetaminophen 325 MG TAB PO PRN ×2 (22:06→22:16)
[2020-02-28] MEDS ORDERED: tiZANidine HCl 4 MG TAB PO PRN ×2 (22:08→22:16)
--- NOTE | 2020-02-28 22:09 | PDOC.HHP ---
Hospitalist HPI - History of Present Illness Altered mental status History of Present Illness: Patient is a 59 year old female with PMH DM, chronic back pain, chronic urinary retention who presents to ED being sent by PCP for altered mental status, global weakness. Patient has chronic urinary retention and straight caths, however has reported a gradual worsening of abdominal and back pain, she had a UTI treated here last month and was on augmentin. Symptoms have progressed to where patient is delirious and aox1, not really eating or drinking and has not been able to finish her medications at home due to reduced PO intake and nausea. She reports dysuria and frequent urge to void, though caths have not been revealing much urine, in ED cathing was difficult so jacinto cath was placed. CT abdomen performed revealing possible colitis. Patient admitted for altered mental status and delirium likely due to infection (colitis vs UTI). Denies chest pain, shortness of breath, diarrhea or other symptoms. was previously able to ambulate normally reports but has been much worse since the infections began last month and cannot ambulate anymore. She has a poorly healing scalp wound previously treated by Dr Bloom and is healing well with wound care at home, compared to old picture on phone looks a LOT better. Hospitalist ROS - Review of Systems ROS unobtainable: due to mental status (altered mental status) - Medication Medications: tiZANidine CAPSULE : Strength - 4 mg : ORAL Patient Dose: 1 tab(s) Oral 4 times a day. Levemir U-100 Insulin VIAL (ML) : Strength - 100 unit/mL : SUBCUTANEOUS Patient Dose: 40 units Subcutaneous 2 times a day. HumaLOG U-100 Insulin VIAL (ML) : Strength - 100 unit/mL : SUBCUTANEOUS Patient Dose: 20 units Subcutaneous 3 times a day (before meals).before each meal. amoxicillin-pot clavulanate tablet : Strength - 875 mg-125 mg : ORAL Patient Dose: 1 tab(s) 2 times a day. oxybutynin chloride tablet : Strength - 5 mg : ORAL Patient Dose: 1 tab(s) 3 times a day. Pyridium 200 mg : Strength - TABLET : ORAL Patient Dose: 1 tab(s) Oral every 6 hours PRN. Cipro tablet 500 mg : Strength - TABLET : ORAL Patient Dose: 1 tab(s) Oral 2 times a day (before meals). traMADol 50 mg : Strength - TABLET : ORAL Patient Dose: 1 tab(s) Oral every 4 hours prn. Zofran ODT 4 mg : Strength - TABLET,DISINTEGRATING : ORAL Patient Dose: 1 tab(s) Oral every 6 hours PRN. Hospitalist History - Past Medical History Other Medical History: frequent UTIs, Diabetes, chronic back pain - Past Surgical History Other Surgical History: L4-L5 FUSION, cholecystectomy, hysterectomy. Biopsy of bladder December 2015. Left hip sx for fx s/p fall 2018, CYSTOSCOPY, REMOVAL OF UNHELAING INFECTION FROM SCALP. - Family History Family History: reports: no pertinent history - Social History Alcohol: reports: None Drugs: reports: none Other Social History: Patient denies alcohol use, Patient denies drug use, Patient has no smoking history, Lives at home, with family. - Exam General Appearance: awake alert General - other findings: altered mental status Eye: PERRL, anicteric sclera ENT: dry oral mucosa Neck: supple, symmetric, no JVD, no thyromegaly, no lymphadenopathy, no carotid bruit Heart: RRR, no murmur, no gallops, no rubs, normal peripheral pulses Respiratory: CTAB, no wheezes, no rales, no ronchi, normal chest expansion, no tachypnea, normal percussion Gastrointestinal: soft, non-distended, normal bowel sounds, no guarding, no rigidity Gastrointestinal - other findings: diffusely tender to palpation in RLQ and LLQ and in both flanks as well Extremities: no cyanosis, no clubbing, no edema Skin: normal turgor, no rashes Skin - other findings: Scalp lesion granulated and healing R scalp ~3-4cm Neurological - other findings: altered mental status, no focal deficits Musculoskeletal: generalized weakness, diffuse muscle atrophy Psychiatric - other findings: altered mental status Hospitalist Results - Labs Result Diagrams: 02/28/20 17:38 02/28/20 17:38 Lab results: WBC 15.8 thou/uL (4.8-10.8) H 02/28/20 17:38 Hgb 9.2 g/dL (12.0-16.0) L 02/28/20 17:38 Hct 27.7 % (36.0-47.0) L 02/28/20 17:38 MCV 98.3 fL (78.0-98.0) H 02/28/20 17:38 Plt Count 289 thou/uL (130-400) 02/28/20 17:38 Neutrophils % 88.9 % (42.0-75.0) H 02/28/20 17:38 Sodium 133 mmol/L (136-145) L 02/28/20 17:38 Potassium 2.9 mmol/L (3.5-5.1) L* 02/28/20 17:38 Chloride 104 mmol/L (98-107) 02/28/20 17:38 Carbon Dioxide 21 mmol/L (22-29) L 02/28/20 17:38 BUN 14 mg/dL (9.8-20.1) 02/28/20 17:38 Creatinine 0.76 mg/dL (0.6-1.1) 02/28/20 17:38 Glucose 233 mg/dL (70-105) H 02/28/20 17:38 Lactic Acid 0.8 mmol/L (0.5-2.2) 02/28/20 17:38 Calcium 7.2 mg/dL (7.8-10.44) L 02/28/20 17:38 Total Bilirubin 0.6 mg/dL (0.2-1.2) 02/28/20 17:38 AST 16 U/L (5-34) 02/28/20 17:38 ALT 7 U/L (8-55) L 02/28/20 17:38 Alkaline Phosphatase 95 U/L (40-110) 02/28/20 17:38 Troponin I 0.028 ng/mL (< 0.028) 02/28/20 17:38 Serum Total Protein 4.3 g/dL (6.0-8.3) L 02/28/20 17:38 Albumin 1.9 g/dL (3.5-5.0) L 02/28/20 17:38 Lipase Less than 4 U/L (8-78) L 02/28/20 17:38 Urine Ketones Unable to Interpret mg/dL (Negative) 02/28/20 20:19 Urine Blood Small (Negative) A 02/28/20 20:19 Urine Nitrite Unable to Interpret (Negative) 02/28/20 20:19 Ur Leukocyte Esterase Large (Negative) H 02/28/20 20:19 Urine RBC 7-10 HPF (0-3) A 02/28/20 20:19 Urine WBC 11-20 HPF (0-3) A 02/28/20 20:19 Ur Squamous Epith Cells 0-3 HPF (0-3) 02/28/20 20:19 Urine Bacteria None Seen HPF (None Seen) 02/28/20 20:19 Additional comment: VITAL SIGNS FriFeb 28, 2020 18:49 EVY Guzman, Robyn BP: 143/72 MAP: 95 Pulse: 94 Resp: 20 Pain: 6 O2 sat: 94 on (Room Air) Time: 02/28/2020 18:49. VITAL SIGNS FriFeb 28, 2020 20:50 EVY Ernst, Joselin BP: 129/67 Pulse: 91 Resp: 18 Temp: 98.2 (Oral) Pain: 7 O2 sat: 95 on (Room Air) Time: 02/28/2020 20:50. VITAL SIGNS FriFeb 28, 2020 21:56 EVY Wylie, [facility] BP: 123/68 Pulse: 89 Resp: 16 Temp: 98.1 (Oral) Pain: 6 O2 sat: 94 on (Room Air) Time: 02/28/2020 21:56. Hospitalist H&P A/P - Plan Plan: Patient is a 59 year old female with PMH DM, chronic back pain, chronic urinary retention who presents to ED being sent by PCP for altered mental status, global weakness. # sepsis due to infection - possibilities include colitis on CT or UTI, will start zosyn to cover both possibilities and follow urine and blood cultures - IVF held for pleural effusion - last admission was on vanc/ceftriaxone and was on augmentin and cipro as outpatient # hypokalemia - trend BMP, replete as needed # hyponatremia - hold IVF, trend BMP # DM w/ hyperglycemia - SSI ordered, restart lantus at half dose due to poor PO intake # scalp wound - healing well I think, consult wound care for continued inpatient management, was drained last admission # anemia - had hematology eval last admission, GI outpatient followup recommended # urinary retention - may have had issues with self cath at home, jacinto in place , consider d/c with jacinto # debility - mobility worse x 1 month, PT/OT and case management consult for possible SNF placement
[2020-02-28] MEDS ORDERED: Sodium Chloride 0.9% 1,000 ML IV SCH ×2 (22:15)
[2020-02-28] MEDS: Morphine 2 MG/ML SYRINGE SLOW IVP PRN (22:52)
[2020-02-28] MEDS ORDERED: Dextrose 5% in Water 1,000 ML IV PRN (22:53)
[2020-02-29] MEDS: Piperacillin/Tazobactam 3.375 GM in Sodium Chloride 0.9% 100 ML IVPB SCH ×5 (00:27→23:47)
[2020-02-29] MEDS: HYDROcodone/Acetaminophen 5/325 mg Tablet PO PRN ×3 (01:52→22:09)
[2020-02-29] MEDS: Morphine 2 MG/ML SYRINGE SLOW IVP PRN (05:51)
[2020-02-29 06:18] LABS: #Basophils 0.1 thou/uL (0.0-0.2); #Eosinphils 0.4 thou/uL (0.0-0.7); #Lymphocytes 1.9 thou/uL (1.20-3.40); #Monocytes 0.8 thou/uL (0.11-0.59); #Neutrophils 10.3 thou/uL (1.40-6.50); %Basophils 0.7 % (0.0-1.0); %Eosinophils 2.8 % (0.0-10.0); %Lymphocytes 14.2 % (21.0-51.0); %Monocytes 5.8 % (0.0-10.0); %Neutrophils 76.5 % (42.0-75.0); Hemoglobin 8.1 g/dL (12.0-16.0); Mean Corpuscular HGB CONC 33.1 g/dL (32.0-36.0); Mean Corpuscular Hemoglobin 32.7 pg (27.0-31.0); Mean Corpuscular Volume 98.9 fL (78.0-98.0); Mean Platelet Volume 7.6 fL (7.4-10.4); Platelet Count 271 thou/uL (130-400); RBC Distribution Width 14.3 % (11.5-14.5); Red Blood Cell (RBC) Count 2.46 mill/uL (4.20-5.40); White Blood Cell (WBC) Count 13.4 thou/uL (4.8-10.8)
[2020-02-29 06:36] LABS: Anion Gap 10 mmol/L (10-20); BUN (Urea Nitrogen) 13 mg/dL (9.8-20.1); Calc. Creatinine Clearance 59 mL/min (70-130); Calcium 7.1 mg/dL (7.8-10.44); Carbon Dioxide 20 mmol/L (22-29); Chloride 105 mmol/L (98-107); Estimated GFR-MDRD 57; Glucose 161 mg/dL (70-105); Magnesium 1.8 mg/dL (1.6-2.6); Sodium 132 mmol/L (136-145)
[2020-02-29] MEDS: HumaLOG 300 UNITS/3 ML VIAL SC PRN (06:52)
[2020-02-29] MEDS ORDERED: Oxybutynin 5 MG TAB PO SCH (09:00)
[2020-02-29] MEDS ORDERED: Polyethylene Glycol 3350 17 GM Packet PO SCH (09:00)
[2020-02-29] MEDS ORDERED: Enoxaparin Sodium 40 MG/0.4 ML SYRINGE SC SCH (09:00)
[2020-02-29] MEDS: Enoxaparin Sodium 40 MG/0.4 ML SYRINGE SC SCH (09:20)
[2020-02-29] MEDS: Oxybutynin 5 MG TAB PO SCH ×3 (09:21→22:10)
[2020-02-29] MEDS: Insulin Glargine 20 UNITS in Pre-Filled Syringe 1 EACH SC SCH ×2 (09:21→23:38)
[2020-02-29] MEDS: Polyethylene Glycol 3350 17 GM Packet PO SCH (09:27)
[2020-02-29] MEDS ORDERED: Bacitracin 1 PK TOP SCH (10:45)
[2020-02-29] MEDS: Dextrose 50% Abboject 50 ML SYRINGE SLOW IVP PRN ×2 (18:01→22:31)
[2020-02-29] MEDS ORDERED: Potassium Chloride 10 MEQ in Premix Bag 1 BAG IVPB SCH (21:00)
[2020-02-29] MEDS: Dextrose 5 % And 0.9 % NaCl 1,000 ML IV SCH (22:08)
[2020-02-29] MEDS: Bacitracin 1 PK TOP SCH (22:10)
[2020-02-29] MEDS ORDERED: cefTRIAXone\\ROCEPHIN 1 GM in Sodium Chloride 0.9% 100 ML IVPB SCH (22:15)
[2020-02-29] MEDS: Ondansetron PF 4 MG/2 ML Vial IVP PRN (23:47)
--- NOTE | 2020-03-01 02:28 | CON ---
DATE OF CONSULTATION: 02/29/2020 HISTORY OF PRESENT ILLNESS: Tomi Sal is a 59-year-old female with multiple medical problems. She presented with altered mental status, although she would do very quickly gave me a history when I saw her today. She also had complaints of weakness. She was complaining mainly of abdominal discomfort when I saw her. She tells me she has abdominal discomfort whenever she has urinary tract infection. PAST MEDICAL HISTORY: Remarkable for; 1. Incision and drainage of scalp abscess being treated with wound care. 2. History of diabetes. 3. History of lumbar spine surgery. 4. History of cholecystectomy. 5. Status post hysterectomy. 6. Status post hip surgery in the past. 7. History of GI blood loss in the past, presenting with a hemoglobin of 5 last month. She had upper and lower endoscopy that was nonrevealing. SOCIAL HISTORY: Nonsmoker. Nondrinker. FAMILY HISTORY: Negative for lung disease in early age. ALLERGIES: REPORTED TO [facility]. PHYSICAL EXAMINATION: VITAL SIGNS: She is afebrile. Heart rate is in 80s, blood pressure 126/57, and respiratory rate is 20. HEAD AND NECK: Remarkable only for wound on the right scalp. She has a cervical lymphadenopathy. LUNGS: Clear. HEART: Regular rhythm. ABDOMEN: Soft. EXTREMITIES: Without asymmetry. LABORATORY DATA: White count 13.4, hemoglobin 8.1, and platelets 271. Sodium 132, potassium 3, chloride 105, and bicarb 20. Abdomen and pelvis CT done yesterday afternoon showed bilateral effusions, soft tissue swelling presacral area, thickening of the sigmoid colon and descending colon. No free air spleen infarction. IMPRESSION AND PLAN: 1. Abdominal tenderness of unclear etiology. I would be concerned about perhaps an ischemic colitis. 2. History of splenic infarct ? embolic. She appears to be reasonably stable at the time I saw her today, but she might benefit from either General Surgery or Gastroenterology looking in on her. She had relatively inactive urinary sediment and her urine culture is negative at this point in time. This is worrisome for more for colon pathology than urinary tract pathology. This is a 50 min consult with greater than 50% of the time spent on unit with coordination of care. Job ID: [id number] [facility] SYSTEMMarc
[2020-03-01] MEDS: HYDROcodone/Acetaminophen 5/325 mg Tablet PO PRN (02:58)
[2020-03-01 03:40] LABS: #Basophils 0.1 thou/uL (0.0-0.2); #Eosinphils 0.2 thou/uL (0.0-0.7); #Lymphocytes 2.1 thou/uL (1.20-3.40); #Monocytes 0.7 thou/uL (0.11-0.59); #Neutrophils 9.1 thou/uL (1.40-6.50); %Basophils 0.6 % (0.0-1.0); %Eosinophils 1.9 % (0.0-10.0); %Monocytes 6.1 % (0.0-10.0); %Neutrophils 74.4 % (42.0-75.0); Hemoglobin 8.3 g/dL (12.0-16.0); Mean Corpuscular HGB CONC 32.7 g/dL (32.0-36.0); Mean Corpuscular Hemoglobin 32.7 pg (27.0-31.0); Mean Platelet Volume 7.5 fL (7.4-10.4); Platelet Count 305 thou/uL (130-400); RBC Distribution Width 14.2 % (11.5-14.5); Red Blood Cell (RBC) Count 2.55 mill/uL (4.20-5.40); White Blood Cell (WBC) Count 12.2 thou/uL (4.8-10.8)
[2020-03-01 04:01] LABS: Anion Gap 10 mmol/L (10-20); BUN (Urea Nitrogen) 11 mg/dL (9.8-20.1); Calc. Creatinine Clearance 57 mL/min (70-130); Calcium 6.8 mg/dL (7.8-10.44); Carbon Dioxide 20 mmol/L (22-29); Chloride 109 mmol/L (98-107); Estimated GFR-MDRD 55; Magnesium 1.8 mg/dL (1.6-2.6); Sodium 136 mmol/L (136-145)
[2020-03-01 04:10] LABS: Glucose 50 mg/dL (70-105); Potassium 2.7 mmol/L (3.5-5.1)
[2020-03-01] MEDS ORDERED: Potassium Chloride 20 MEQ in Premix Bag 1 BAG IVPB SCH (04:30)
[2020-03-01] MEDS: Piperacillin/Tazobactam 3.375 GM in Sodium Chloride 0.9% 100 ML IVPB SCH ×3 (05:27→17:18)
[2020-03-01] MEDS: Potassium Chloride 20 MEQ TAB PO SCH ×2 (05:28→05:45)
[2020-03-01] MEDS: Dextrose 50% Abboject 50 ML SYRINGE SLOW IVP PRN (05:36)
[2020-03-01 08:31] LABS: Magnesium 1.8 mg/dL (1.6-2.6); Potassium 3.5 mmol/L (3.5-5.1)
[2020-03-01] MEDS: Enoxaparin Sodium 40 MG/0.4 ML SYRINGE SC SCH (09:19)
[2020-03-01] MEDS: Bacitracin 1 PK TOP SCH ×2 (09:19→21:59)
[2020-03-01] MEDS: Insulin Glargine 20 UNITS in Pre-Filled Syringe 1 EACH SC SCH (09:19)
[2020-03-01] MEDS: Ondansetron PF 4 MG/2 ML Vial IVP PRN ×2 (10:35→17:19)
[2020-03-01] MEDS: Morphine 2 MG/ML SYRINGE SLOW IVP PRN ×2 (10:42→14:55)
[2020-03-01] MEDS ORDERED: Metoclopramide HCl 10 MG/2 ML VIAL IVP PRN (11:46)
--- NOTE | 2020-03-01 11:50 | PDOC.HOSPP ---
- Subjective Encounter Date: 02/29/20 Encounter Time: 10:30 Subjective: pt up in bed complains of pain to her abdomen area - Objective Vital Signs & Weight: Vital Signs (12 hours) Temp Pulse Ox 03/01/20 11:20 98.9 F 03/01/20 08:00 98 03/01/20 07:23 98.5 F 03/01/20 05:29 99.1 F 02/29/20 23:52 98.4 F Weight Admit Weight 136 lb 1.6 oz Weight 136 lb 1.6 oz Most Recent Monitor Data Heart Rate from ECG 95 NIBP 124/60 NIBP BP-Mean 81 Respiration from ECG 20 SpO2 97 I&O: 02/29/20 03/01/20 03/02/20 06:59 06:59 06:59 Intake Total 757 1053 Output Total 175 1050 Balance 582 3 Result Diagrams: 03/01/20 03:13 03/01/20 07:23 Additional Labs: Accuchecks 03/01/20 03/01/20 03/01/20 10:48 06:57 05:36 POC Glucose 70 103 57 L* 03/01/20 02/29/20 02/29/20 03:06 23:14 22:28 POC Glucose 62 L 126 H 49 L* 02/29/20 02/29/20 19:11 18:00 POC Glucose 94 41 L* Hospitalist ROS - Review of Systems Gastrointestinal: reports: nausea, abdominal pain - Medication Medications: Active Medications Generic Name Dose Route Start Last Admin Trade Name Freq PRN Reason Stop Dose Admin Hydrocodone Bitart/Acetaminophen 1 tab 02/28/20 22:16 03/01/20 02:58 [place] 5/325 PO 1 tab Q4H PRN Administration Moderate Pain (4-6) Bacitracin 2 pk 02/29/20 21:00 03/01/20 09:19 Bacitracin TOP 2 pk BID DEVORA Administration Dextrose/Water 25 gm 02/28/20 22:53 03/01/20 05:36 Dextrose 50% SLOW IVP 25 gm PRN PRN Administration Hypoglycemia Enoxaparin Sodium 40 mg 02/29/20 09:00 03/01/20 09:19 Lovenox SC 40 mg 0900 DEVORA Administration Piperacillin Sod/Tazobactam 100 mls @ 200 mls/hr 02/29/20 12:00 03/01/20 05: 27 Sod 3.375 gm/ Sodium Chloride IVPB 03/06/20 23:59 100 mls Q6HR DEVORA Administration Dextrose/Sodium Chloride 1,000 mls @ 75 mls/hr 02/29/20 20:45 02/29/20 22:08 D5 0.9% Ns IV 1,000 mls .[id number] DEVORA Administration Insulin Human Lispro 0 units 02/28/20 22:53 02/29/20 06:52 Humalog SC 2 unit .MILD SLIDING SCALE PRN Administration Mild Correctional Scale Morphine Sulfate 2 mg 02/28/20 22:16 03/01/20 10:42 Morphine SLOW IVP 2 mg Q4H PRN Administration severe pain 4-10 Ondansetron HCl 4 mg 02/28/20 22:16 03/01/20 10:35 Zofran IVP 4 mg Q6H PRN Administration Nausea/Vomiting use 1st Oxybutynin Chloride 5 mg 02/29/20 09:00 02/29/20 22:10 Ditropan PO 5 mg TID DEVORA Administration Polyethylene Glycol 17 gm 02/29/20 09:00 02/29/20 09:27 Miralax PO Not Given DAILY DEVORA - Exam ENT - other findings: poor teeth Neck: negative: supple, symmetric, no JVD, no thyromegaly, no lymphadenopathy, no carotid bruit, JVD Heart: negative: RRR, no murmur, no gallops, no rubs, normal peripheral pulses, irregular, diminshed peripheral pulses, murmur present, II/IV, III/IV Respiratory: negative: CTAB, no wheezes, no rales, no ronchi, normal chest expansion, no tachypnea, normal percussion, rales, rhonchi, tachypneic, wheezes Gastrointestinal: soft, normal bowel sounds, tender to palpation Hosp A/P (1) Malnutrition Code(s): E46 - UNSPECIFIED PROTEIN-CALORIE MALNUTRITION Status: Acute (2) Nausea Code(s): R11.0 - NAUSEA Status: Acute (3) Abdominal pain Code(s): R10.9 - UNSPECIFIED ABDOMINAL PAIN Status: Acute Qualifiers: Abdominal location: generalized Qualified Code(s): R10.84 - Generalized abdominal pain (4) Anemia Code(s): D64.9 - ANEMIA, UNSPECIFIED Status: Acute (5) Hypokalemia Code(s): E87.6 - HYPOKALEMIA Status: Acute (6) UTI (urinary tract infection) Status: Acute (7) Urinary retention Code(s): R33.9 - RETENTION OF URINE, UNSPECIFIED Status: Acute (8) DM2 (diabetes mellitus, type 2) Status: Chronic - Plan pt's chart reviewed. she recently had an extensive workup with egd/colonoscopy for anemia. Had flow cyto and hemolysis panel. No indication of her anemia. she was tx for scalp infection with po abx cx indicated mssa. she comes in with abd pain and nausea. she self caths her self for urinary retention. her ct abd/pel negative for acute process she does have splenic infarct and mild colitis. she is on abx.
--- NOTE | 2020-03-01 11:55 | PDOC.HOSPP ---
- Subjective Encounter Date: 03/01/20 Encounter Time: 10:30 Subjective: pt up in bed still has abdomen pain - Objective Vital Signs & Weight: Vital Signs (12 hours) Temp Pulse Ox 03/01/20 11:20 98.9 F 03/01/20 08:00 98 03/01/20 07:23 98.5 F 03/01/20 05:29 99.1 F Weight Admit Weight 136 lb 1.6 oz Weight 136 lb 1.6 oz Most Recent Monitor Data Heart Rate from ECG 95 NIBP 124/60 NIBP BP-Mean 81 Respiration from ECG 20 SpO2 97 I&O: 02/29/20 03/01/20 03/02/20 06:59 06:59 06:59 Intake Total 757 1053 Output Total 175 1050 Balance 582 3 Result Diagrams: 03/01/20 03:13 03/01/20 07:23 Additional Labs: Accuchecks 03/01/20 03/01/20 03/01/20 10:48 06:57 05:36 POC Glucose 70 103 57 L* 03/01/20 02/29/20 02/29/20 03:06 23:14 22:28 POC Glucose 62 L 126 H 49 L* 02/29/20 02/29/20 19:11 18:00 POC Glucose 94 41 L* Hospitalist ROS - Review of Systems Cardiovascular: denies: chest pain, palpitations, orthopnea, paroxysmal noc. dyspnea, edema, light headedness, other Gastrointestinal: reports: nausea, abdominal pain. denies: vomiting, diarrhea, constipation, melena, hematochezia, other Genitourinary: denies: dysuria, frequency, incontinence, hematuria, retention, other - Medication Medications: Active Medications Generic Name Dose Route Start Last Admin Trade Name Freq PRN Reason Stop Dose Admin Hydrocodone Bitart/Acetaminophen 1 tab 02/28/20 22:16 03/01/20 02:58 [place] 5/325 PO 1 tab Q4H PRN Administration Moderate Pain (4-6) Bacitracin 2 pk 02/29/20 21:00 03/01/20 09:19 Bacitracin TOP 2 pk BID DEVORA Administration Dextrose/Water 25 gm 02/28/20 22:53 03/01/20 05:36 Dextrose 50% SLOW IVP 25 gm PRN PRN Administration Hypoglycemia Enoxaparin Sodium 40 mg 02/29/20 09:00 03/01/20 09:19 Lovenox SC 40 mg 0900 DEVORA Administration Piperacillin Sod/Tazobactam 100 mls @ 200 mls/hr 02/29/20 12:00 03/01/20 05: 27 Sod 3.375 gm/ Sodium Chloride IVPB 03/06/20 23:59 100 mls Q6HR DEVORA Administration Dextrose/Sodium Chloride 1,000 mls @ 75 mls/hr 02/29/20 20:45 02/29/20 22:08 D5 0.9% Ns IV 1,000 mls .[id number] DEVORA Administration Insulin Human Lispro 0 units 02/28/20 22:53 02/29/20 06:52 Humalog SC 2 unit .MILD SLIDING SCALE PRN Administration Mild Correctional Scale Morphine Sulfate 2 mg 02/28/20 22:16 03/01/20 10:42 Morphine SLOW IVP 2 mg Q4H PRN Administration severe pain 4-10 Ondansetron HCl 4 mg 02/28/20 22:16 03/01/20 10:35 Zofran IVP 4 mg Q6H PRN Administration Nausea/Vomiting use 1st Oxybutynin Chloride 5 mg 02/29/20 09:00 02/29/20 22:10 Ditropan PO 5 mg TID DEVORA Administration Polyethylene Glycol 17 gm 02/29/20 09:00 02/29/20 09:27 Miralax PO Not Given DAILY DEVORA - Exam Heart: negative: RRR, no murmur, no gallops, no rubs, normal peripheral pulses, irregular, diminshed peripheral pulses, murmur present, II/IV, III/IV Respiratory: negative: CTAB, no wheezes, no rales, no ronchi, normal chest expansion, no tachypnea, normal percussion, rales, rhonchi, tachypneic, wheezes Gastrointestinal: soft, normal bowel sounds, tender to palpation Hosp A/P (1) Malnutrition Code(s): E46 - UNSPECIFIED PROTEIN-CALORIE MALNUTRITION Status: Acute (2) Nausea Code(s): R11.0 - NAUSEA Status: Acute (3) Abdominal pain Code(s): R10.9 - UNSPECIFIED ABDOMINAL PAIN Status: Acute Qualifiers: Abdominal location: generalized Qualified Code(s): R10.84 - Generalized abdominal pain (4) Anemia Code(s): D64.9 - ANEMIA, UNSPECIFIED Status: Acute (5) Hypokalemia Code(s): E87.6 - HYPOKALEMIA Status: Acute (6) UTI (urinary tract infection) Status: Acute (7) Urinary retention Code(s): R33.9 - RETENTION OF URINE, UNSPECIFIED Status: Acute (8) DM2 (diabetes mellitus, type 2) Status: Chronic (9) Colitis Code(s): K52.9 - NONINFECTIVE GASTROENTERITIS AND COLITIS, UNSPECIFIED Status : Acute (10) Splenic infarct Code(s): D73.5 - INFARCTION OF SPLEEN Status: Acute - Plan pt's chart reviewed. she recently had an extensive workup with egd/colonoscopy for anemia. Had flow cyto and hemolysis panel. No indication of her anemia. she was tx for scalp infection with po abx cx indicated mssa. she comes in with abd pain and nausea. she self caths her self for urinary retention. her ct abd/pel negative for acute process she does have splenic infarct and mild colitis. she is on abx. 03/01 spoke with pt's in details about pt's overall medical issues. She continues to have abd pain significant at very very light touch. According to her she has abd pain in the past but has gotten worse. she has had a ct abd/pel with contrast twice and its been negative. lactic acid normal. EGD/colon no acute etiology noted. She did have significant dark stool in the colon per report. she also has splenic infarct unclear etiology possible due to her recent infection? she has had hemolysis work up no indication of MDS or leukemia. per she has had diabetes and has not been managing well ( this is in the past). I will get hbg alc, will start reglan to see if it helps with nausea. she has had bm so she has no sign of obstruction. Her crp is mildly elevated. esr is normal. I have added LUCERO. will also get ct brain to see if any reason for her nausea. she denies issues with swallowing. i have consulted gi but may need surgery to evaluate pt. will start her on ppn.
[2020-03-01] MEDS: Oxybutynin 5 MG TAB PO SCH ×3 (12:17→22:24)
[2020-03-01] MEDS: Polyethylene Glycol 3350 17 GM Packet PO SCH (12:17)
[2020-03-01] MEDS: Dextrose 5 % And 0.9 % NaCl 1,000 ML IV SCH ×2 (12:17→15:40)
--- NOTE | 2020-03-01 12:26 | CT ---
CT head noncontrast HISTORY: Altered mental status. COMPARISON: 01/26/2014. FINDINGS: There is no evidence of acute intracranial hemorrhage or infarct. Mild diffuse cortical atr ophy is stable. There is no mass effect or shift of midline structures. Mild mucosal thickening within the right mast oid air cells has developed. No air-fluid levels within the paranasal sinuses. IMPRESSION : Cranial abnormalities.. Mucosal thickening right mastoid air cells is nonspecific in the absence of other acute abnormalities .
[2020-03-01 13:19] LABS: Hemoglobin A1c 4.3 % (4.0-6.0)
[2020-03-01] MEDS: D5W-AA 4.25% with LYTES 1,000 ML BAG IV SCH (15:40)
--- NOTE | 2020-03-01 15:50 | PRG ---
DATE OF SERVICE: 03/01/2020 SUBJECTIVE: Tomi Sal is still with considerable abdominal discomfort. She says she has pain in her left leg as well. OBJECTIVE: VITAL SIGNS: She is afebrile. Heart rate is 92, respiratory rates in the teens, oximetry is in the mid 90s. LUNGS: Clear. HEART: Regular rhythm. S1 and S2 are normal. ABDOMEN: Diffusely tender, more so on the left side. EXTREMITIES: Without asymmetry. LABORATORY DATA: White count 12.2, hemoglobin 8.3, platelets 305. Sodium 136, potassium , chloride 109, bicarb 20, BUN 11, and creatinine 1.02. IMPRESSION: Abdominal discomfort of unclear etiology with exam findings consistent with colitis on abdomen and pelvis CT. I think statistically this would most likely be an ischemic colitis, especially with a history of long-standing diabetes and her immunocompromised state. We will continue to follow. Consultation with GI and General Surgery should be entertained. Job ID: [id number]
[2020-03-01] MEDS: Famotidine/PF 20 mg/2ml Vial SLOW IVP SCH (21:59)
[2020-03-01] MEDS ORDERED: Lorazepam 2 MG/ML VIAL SLOW IVP SCH (23:15)
[2020-03-02] MEDS: Piperacillin/Tazobactam 3.375 GM in Sodium Chloride 0.9% 100 ML IVPB SCH ×3 (00:20→13:39)
[2020-03-02] MEDS: hydrALAZINE 20 MG/ML VIAL SLOW IVP PRN ×2 (00:30→21:10)
[2020-03-02] MEDS: D5W-AA 4.25% with LYTES 1,000 ML BAG IV SCH (03:24)
[2020-03-02] MEDS ORDERED: D5W-AA 4.25% with LYTES 1,000 ML IV SCH (07:15)
--- NOTE | 2020-03-02 08:30 | CON ---
DATE OF CONSULTATION: 03/01/2020 REASON FOR CONSULTATION: Abdominal pain. HISTORY OF PRESENT ILLNESS: Ms. Tomi Sal is a very pleasant 59-year-old [place] female, who is known to me from before. The patient was hospitalized in January of 2020, with severe anemia and with also associated abdominal pain. She had negative CAT scan of abdomen and negative colonoscopy and EGD. Due to persistent abdominal pain, she also underwent laparoscopy by Dr. Bloom during the last admission. She had an abscess over the scalp, which was drained by Dr. Bloom during the last admission. The scalp appears very healthy at the present time except for a small area of Band-Aid over the right side of the scalp. The patient appears very comfortable, in no distress. The patient tells me she has pain over the lower abdomen and this pain is [id number]. The patient on admission was having pain off and on and the pain was out of proportion to her clinical picture. It was felt that she has drug-seeking behavior. She has had multiple admissions in the past and it was felt the same way . The patient appears very comfortable at the present time. She complains of dysuria and she also says that she had bladder infection no nausea or vomiting. She says her stools are very loose, but she is having three or four stools per day. She had no other relevant symptoms. ALLERGIES: SULFA. MEDICAL ILLNESSES: 1. Diabetes mellitus. 2. Chronic back pain. 3. diverticular disease. Recent colonoscopy and EGD negative. 4. Recent laparoscopy for abdominal pain. 5. Recent CAT scan showing a small splenic infarct, most likely . 6. Scalp abscess, status post drainage in January of 2020. MEDICATIONS: List reviewed. SURGERIES: 1. L4-L5 fusion. 2. Hysterectomy. 3. Cholecystectomy. 4. Biopsy . 5. . 6. Cystoscopy. 7. I and D of scalp abscess. SOCIAL HISTORY: does not smoke or drink alcohol. PHYSICAL EXAMINATION: GENERAL: She appears very comfortable, in no acute distress. She is awake, alert, oriented to time, place and . She is in no distress. VITAL SIGNS: She afebrile. Pulse is 95, blood pressure HEAD: The right side of the scalp appears healthy I and D of abscess a month ago. NECK: Supple. CARDIOVASCULAR: First and second heart sounds are normal. LUNGS: Clear to auscultation. ABDOMEN: Soft . Abdomen is . She appears very comfortable LABORATORY DATA: On 03/01/2020, WBC 12,200, hemoglobin 8.3, hematocrit 25.4, platelet count is 305,000, polymorphs 74, lymphocytes 17. Chemistry panel shows potassium 2.7 glucose was 50 yesterday and today is , calcium 6.8, magnesium 1.8, BUN is 11. CLINICAL IMPRESSION: A 59-year-old female with chronic abdominal pain with negative EGD and colonoscopy a month ago. She also had negative abdominal CAT scan a month ago. She had a laparoscopy with lysis of adhesions by Dr. Bloom a month ago. very benign and she She has more chronic pain syndrome and there is no acute abdominal pathology . RECOMMENDATIONS: Symptomatic treatment. She had an EGD and colonoscopy and abdomen CAT scan a month ago, If loose stools persist, obtain stool for culture, C diff, and ova and parasites. Job ID: [id number]
[2020-03-02] MEDS: HYDROcodone/Acetaminophen 5/325 mg Tablet PO PRN ×2 (10:25→14:55)
[2020-03-02] MEDS: Oxybutynin 5 MG TAB PO SCH ×3 (10:25→20:11)
[2020-03-02] MEDS: Bacitracin 1 PK TOP SCH ×2 (10:29→20:12)
[2020-03-02] MEDS: Enoxaparin Sodium 40 MG/0.4 ML SYRINGE SC SCH (10:29)
[2020-03-02] MEDS: Famotidine/PF 20 mg/2ml Vial SLOW IVP SCH (10:29)
[2020-03-02] MEDS: Polyethylene Glycol 3350 17 GM Packet PO SCH (10:29)
[2020-03-02 10:54] LABS: Magnesium 1.8 mg/dL (1.6-2.6); Potassium 3.1 mmol/L (3.5-5.1)
[2020-03-02] MEDS: HumaLOG 300 UNITS/3 ML VIAL SC PRN ×2 (12:37→17:07)
[2020-03-02] MEDS: Dextrose 5 % And 0.9 % NaCl 1,000 ML IV SCH (13:46)
--- NOTE | 2020-03-02 14:36 | PDOC.HOSPP ---
- Subjective Encounter Date: 03/02/20 Encounter Time: 10:00 Subjective: pt up in bed was in restraints - Objective Vital Signs & Weight: Vital Signs (12 hours) Temp Pulse Ox 03/02/20 12:02 99.3 F 03/02/20 08:00 98 03/02/20 07:19 99.0 F 03/02/20 03:49 97.8 F Weight Admit Weight 136 lb 1.6 oz Weight 136 lb 1.6 oz Most Recent Monitor Data Heart Rate from ECG 108 NIBP 158/78 NIBP BP-Mean 104 Respiration from ECG 18 SpO2 94 I&O: 03/01/20 03/02/20 03/03/20 06:59 06:59 06:59 Intake Total 1053 3035 Output Total 1050 960 Balance 3 5 Result Diagrams: 03/01/20 03:13 03/02/20 10:16 Additional Labs: Accuchecks 03/02/20 03/02/20 03/02/20 10:29 05:41 00:48 POC Glucose 257 H 189 H 126 H 03/01/20 03/01/20 20:41 16:47 POC Glucose 126 H 87 Hospitalist ROS - Review of Systems Gastrointestinal: reports: nausea, abdominal pain Genitourinary: denies: dysuria, frequency, incontinence, hematuria, retention, other Musculoskeletal: denies: neck pain, shoulder pain, arm pain, back pain, hand pain, leg pain, foot pain, other - Medication Medications: Active Medications Generic Name Dose Route Start Last Admin Trade Name Freq PRN Reason Stop Dose Admin Bacitracin 2 pk 02/29/20 21:00 03/02/20 10:29 Bacitracin TOP 2 pk BID DEVORA Administration Dextrose/Water 25 gm 02/28/20 22:53 03/01/20 05:36 Dextrose 50% SLOW IVP 25 gm PRN PRN Administration Hypoglycemia Enoxaparin Sodium 40 mg 02/29/20 09:00 03/02/20 10:29 Lovenox SC Not Given 0900 DEVORA Hydralazine HCl 10 mg 02/28/20 22:16 03/02/20 00:30 Apresoline SLOW IVP 10 mg Q6H PRN Administration SBP GREATER THAN 160 Piperacillin Sod/Tazobactam 100 mls @ 200 mls/hr 02/29/20 12:00 03/02/20 13: 39 Sod 3.375 gm/ Sodium Chloride IVPB 03/06/20 23:59 100 mls Q6HR DEVORA Administration Dextrose/Sodium Chloride 1,000 mls @ 75 mls/hr 02/29/20 20:45 03/02/20 13:46 D5 0.9% Ns IV Not Given .[id number] [facility] Insulin Human Lispro 0 units 02/28/20 22:53 03/02/20 12:37 Humalog SC 4 unit .MILD SLIDING SCALE PRN Administration Mild Correctional Scale Morphine Sulfate 2 mg 02/28/20 22:16 03/01/20 14:55 Morphine SLOW IVP 2 mg Q4H PRN Administration severe pain 4-10 Ondansetron HCl 4 mg 02/28/20 22:16 03/01/20 17:19 Zofran IVP 4 mg Q6H PRN Administration Nausea/Vomiting use 1st Oxybutynin Chloride 5 mg 02/29/20 09:00 03/02/20 10:25 Ditropan PO 5 mg TID DEVORA Administration Polyethylene Glycol 17 gm 02/29/20 09:00 03/02/20 10:29 Miralax PO Not Given DAILY [facility] - Exam Heart: negative: RRR, no murmur, no gallops, no rubs, normal peripheral pulses, irregular, diminshed peripheral pulses, murmur present, II/IV, III/IV Respiratory: negative: CTAB, no wheezes, no rales, no ronchi, normal chest expansion, no tachypnea, normal percussion, rales, rhonchi, tachypneic, wheezes Gastrointestinal: soft, normal bowel sounds Gastrointestinal - other findings: pain on palpation Extremities: 1+ LE edema. negative: no cyanosis, no clubbing, no edema, 2+ LE edema, clubbing Hosp A/P (1) Malnutrition Code(s): E46 - UNSPECIFIED PROTEIN-CALORIE MALNUTRITION Status: Acute (2) Nausea Code(s): R11.0 - NAUSEA Status: Acute (3) Abdominal pain Code(s): R10.9 - UNSPECIFIED ABDOMINAL PAIN Status: Acute Qualifiers: Abdominal location: generalized Qualified Code(s): R10.84 - Generalized abdominal pain (4) Anemia Code(s): D64.9 - ANEMIA, UNSPECIFIED Status: Acute (5) Hypokalemia Code(s): E87.6 - HYPOKALEMIA Status: Acute (6) UTI (urinary tract infection) Status: Acute (7) Urinary retention Code(s): R33.9 - RETENTION OF URINE, UNSPECIFIED Status: Acute (8) DM2 (diabetes mellitus, type 2) Status: Chronic (9) Colitis Code(s): K52.9 - NONINFECTIVE GASTROENTERITIS AND COLITIS, UNSPECIFIED Status : Acute (10) Splenic infarct Code(s): D73.5 - INFARCTION OF SPLEEN Status: Acute - Plan pt's chart reviewed. she recently had an extensive workup with egd/colonoscopy for anemia. Had flow cyto and hemolysis panel. No indication of her anemia. she was tx for scalp infection with po abx cx indicated mssa. she comes in with abd pain and nausea. she self caths her self for urinary retention. her ct abd/pel negative for acute process she does have splenic infarct and mild colitis. she is on abx. 03/01 spoke with pt's in details about pt's overall medical issues. She continues to have abd pain significant at very very light touch. According to her she has abd pain in the past but has gotten worse. she has had a ct abd/pel with contrast twice and its been negative. lactic acid normal. EGD/colon no acute etiology noted. She did have significant dark stool in the colon per report. she also has splenic infarct unclear etiology possible due to her recent infection? she has had hemolysis work up no indication of MDS or leukemia. per she has had diabetes and has not been managing well ( this is in the past). I will get hbg alc, will start reglan to see if it helps with nausea. she has had bm so she has no sign of obstruction. Her crp is mildly elevated. esr is normal. I have added LUCERO. will also get ct brain to see if any reason for her nausea. she denies issues with swallowing. i have consulted gi but may need surgery to evaluate pt. will start her on ppn. 03/02 pt feels better and has been eating now. she also has had bm. will continue reglan for now. she still has abdomen pain on light touch. cx negative, will discontinue jacinto. will stop abx. she asked me for pain meds and i told her i would only continue norco and pain meds could worsen her abdomen pain. She will be taken off restraints. Her alc is normal. LUCERO pending. Not sure if there is a psy component to her abdomen pain vs narcotic dependency. However family states that she has only been taking muscle relaxant.
[2020-03-02] MEDS ORDERED: Potassium Chloride 20 MEQ TAB PO SCH (14:45)
[2020-03-02] MEDS ORDERED: Furosemide 20 MG/2 ML VIAL SLOW IVP SCH (14:45)
--- NOTE | 2020-03-02 17:20 | CON ---
DATE OF CONSULTATION: 03/02/2020 REASON FOR CONSULTATION: Bradycardia. HISTORY OF PRESENT ILLNESS: Ms. Sal is a pleasant 59-year-old female, who comes to the hospital for altered mental status. She has chronic urinary retention. She was sent by her primary care physician for altered mentation and global weakness. She does the straight catheterization daily. Recently, she has had gradual worsening of abdominal and back pain, had a UTI treated last month. She had been on Augmentin. She was delirious and admitted for this. She was started on antibiotics, given IV fluids and she is a lot better now. During her hospital stay, she has been on monitoring and earlier today at about 9:30 a.m. she was awake. She had an episode of bradycardia. Looking at the tracings, it looks like she went to high-degree AV block. She does not remember the episode. Asking her, she tells me she has had several episodes of syncope in the last few months. She says the last one was about 2 months ago. She was just sitting there and then suddenly she just fell, she just woke up on the couch. About a month prior to that, she had another episode where she does not know if she passed out or if she fell asleep, but from her description it sounds like she had another syncopal spell. Currently, Ms. Sal has no other issues. Denies any chest pain, tightness, pressure. No shortness of breath. PAST MEDICAL HISTORY: 1. Type 2 diabetes. 2. Fibromyalgia. 3. Anxiety and depression. 4. Abscess on her forehead. PAST SURGICAL HISTORY: 1. L4-L5 fusion. 2. Cholecystectomy. 3. Hysterectomy. 4. Left hip surgery. 5. Bladder biopsy. 6. On 02/01/2020, Dr. Bloom performed an incision and drainage of a multiloculated abscess on the right parieto-occipital scalp. 7. On that same day, Dr. Bloom performed a diagnostic laparoscopy that showed a normal abdominal cavity secondary to her chronic abdominal pain. SOCIAL HISTORY: No alcohol, tobacco, or drugs. ALLERGIES: SULFA DRUGS. OUTPATIENT MEDICATIONS: 1. Tizanidine p.r.n. 2. Lactinex chewable tablet. 3. Augmentin. 4. Oxybutynin. ALLERGIES: SULFA DRUGS. FAMILY HISTORY: Noncontributory. REVIEW OF SYSTEMS: A 12-point review of systems was done and was all negative unless stated in the history of present illness. PHYSICAL EXAMINATION: VITAL SIGNS: Temperature 99.3, heart rate 108, blood pressure 158/78, respiratory rate 18, saturating 94% on room air. GENERAL: Awake, alert, oriented x3, in no distress. HEENT: Normocephalic and atraumatic. NECK: Supple. LUNGS: Clear. CARDIOVASCULAR: S1 and S2. No S3 or S4. There is a grade 2/6 systolic murmur at the right upper sternal border. There is a holosystolic murmur at the apex grade 2. ABDOMEN: Soft, but tender to palpation. No rebound or guarding. EXTREMITIES: 1+ edema bilateral. SKIN: Warm and dry. LABORATORY DATA: Laboratory work was reviewed. CBC with a white count of 12 down from 15 on admission with predominantly neutrophils, hemoglobin went from 9.2 down to 8.3, platelet count is normal. Chemistry showed hypokalemia throughout, however, yesterday it was 3.5, this morning it was 3.1 at 10:00 a.m. which is after the episode. Magnesium was 1.8. Rest of the metabolic profile is unremarkable except for episodes of low glucose. UA was dirty, however, she self catheterized. This is expected. Urine cultures were negative. EKG was reviewed. Telemetry was reviewed, high-degree AV block, episodes of 2:1 AV block and severe bradycardia with non-conducted P waves. Heart rate was down to the 20s. She was asymptomatic, the whole episode lasted for about 7 seconds. The pause was about 5 seconds. ASSESSMENT: 1. High-degree AV block. 2. Possible sepsis, unknown source, could be urine. Better. 3. Altered mental status, improved. 4. Chronic abdominal pain. Most recent echocardiogram was done on the 31 of January. EF was about 50% to 55%. PLAN: She will need a pacemaker placed. She has had syncopal spells and had this rhythm found on monitor. At this point, I do not think it is in her best benefit to get one in right now as I am not sure where her infectious focus might be. She had MSSA abscess on her scalp which was excised and apparently looks much better. We may need to get Abi involved and if he feels that it is a good time for pacemaker, we will proceed. Otherwise, may need to treat her with antibiotics for few days before that. Thank you for letting us participate in the care of your patient. We will follow. Job ID: [id number]
--- NOTE | 2020-03-02 17:38 | PRG ---
DATE OF SERVICE: 03/02/2020 SUBJECTIVE: Tomi Sal continues to complain of abdominal discomfort. OBJECTIVE: VITAL SIGNS: She is afebrile. Blood pressure 158/78, heart rate is 108, respiratory rate is 18. LUNGS: Clear. HEART: Regular rhythm. ABDOMEN: Diffusely tender. She reacts before I push on her abdomen, but I do believe she has some real tenderness. LABORATORY DATA: There is no new lab today other than a potassium and some glucoses. Her potassium is 3.1. There are no acute pulmonary issues. Her main issues surround her confusion and her abdominal discomfort. We will be available if needed in the future. Job ID: [id number]
[2020-03-02] MEDS: Famotidine 20 MG TAB PO SCH (20:11)
[2020-03-02] MEDS: Amoxicillin/Potassium Clav 875 MG TAB PO SCH (20:11)
[2020-03-02] MEDS: Morphine 2 MG/ML SYRINGE SLOW IVP PRN (20:12)
[2020-03-03] MEDS: HYDROcodone/Acetaminophen 5/325 mg Tablet PO PRN ×4 (01:27→21:54)
[2020-03-03] MEDS: Morphine 2 MG/ML SYRINGE SLOW IVP PRN (04:48)
[2020-03-03] MEDS: HumaLOG 300 UNITS/3 ML VIAL SC PRN ×2 (05:49→11:25)
[2020-03-03] MEDS: Oxybutynin 5 MG TAB PO SCH ×3 (08:52→21:54)
[2020-03-03] MEDS: Polyethylene Glycol 3350 17 GM Packet PO SCH (08:52)
[2020-03-03] MEDS: Amoxicillin/Potassium Clav 875 MG TAB PO SCH ×2 (08:53→21:53)
[2020-03-03] MEDS: Famotidine 20 MG TAB PO SCH ×2 (08:53→21:54)
[2020-03-03] MEDS: Enoxaparin Sodium 40 MG/0.4 ML SYRINGE SC SCH (08:53)
[2020-03-03] MEDS: Bacitracin 1 PK TOP SCH ×2 (11:25→21:54)
--- NOTE | 2020-03-03 11:38 | PDOC.CPN ---
- Subjective Date: 03/03/20 Time: 11:38 Interval history: She is sleepy this morning, just received pain medication. Her is in the room and answered several questions. No new issues since yesterday. - Review of Systems General: denies: fever/chills, weight/appetite/sleep changes, night sweats, fatigue Respiratory: denies: cough, congestion, shortness of breath, exercise intolerance Cardiovascular: denies: chest pain, palpitation, edema, paroxysmal nocturnal dyspnea, orthopnea Gastrointestinal: reports: abd pain. denies: nausea, vomiting, diarrhea, constipation, GI bleeding Musculoskeletal: denies: pain, tenderness, stiffness, swelling, arthritis/ arthralgias Neurological: denies: numbness, syncope, seizure, weakness - Objective Allergies/Adverse Reactions: Allergies Allergy/AdvReac Type Severity Reaction Status Date / Time sulfamethoxazole Allergy Verified 02/28/20 22:41 Sulfa (Sulfonamide AdvReac Intermediate Nausea Verified 02/28/20 22:41 Antibiotics) Visit Medications: Current Medications Acetaminophen (Tylenol) 650 mg PO Q4H PRN PRN Reason: Headache/Fever/Mild Pain (1-3) Hydrocodone Bitart/Acetaminophen ([place] 5/325) 2 tab PO Q6H PRN PRN Reason: Moderate Pain (4-6) Last Admin: 03/03/20 08:54 Dose: 2 tab Albuterol/Ipratropium (Duoneb) 3 ml NEB [id number] PRN PRN Reason: SOB &/or Wheezing Amoxicillin/Clavulanate Potassium (Augmentin) 875 mg PO BID [facility] Stop: 03/04/20 09:01 Last Admin: 03/03/20 08:53 Dose: 875 mg Bacitracin (Bacitracin) 2 pk TOP BID [facility] Last Admin: 03/03/20 11:25 Dose: 2 pk Dextrose/Water (Dextrose 50%) 25 gm SLOW IVP PRN PRN PRN Reason: Hypoglycemia Last Admin: 03/01/20 05:36 Dose: 25 gm Enoxaparin Sodium (Lovenox) 40 mg SC 0900 [facility] Last Admin: 03/03/20 08:53 Dose: 40 mg Famotidine (Pepcid) 20 mg PO BID [facility] Last Admin: 03/03/20 08:53 Dose: 20 mg Glucagon (Glucagon) 1 mg IM PRN PRN PRN Reason: Hypoglycemia Guaifenesin/Dextromethorphan (Robitussin Dm) 15 ml PO Q4H PRN PRN Reason: Cough Hydralazine HCl (Apresoline) 10 mg SLOW IVP Q6H PRN PRN Reason: SBP GREATER THAN 160 Last Admin: 03/02/20 21:10 Dose: 10 mg Dextrose/Water (D5w) 1,000 mls @ 0 mls/hr IV .Q0M PRN PRN Reason: Hypoglycemia Insulin Human Lispro (Humalog) 0 units SC .MILD SLIDING SCALE PRN PRN Reason: Mild Correctional Scale Last Admin: 03/03/20 11:25 Dose: 3 unit Metoclopramide HCl (Reglan) 5 mg IVP Q6H PRN PRN Reason: Nausea/Vomiting Last Admin: 03/03/20 08:53 Dose: 5 mg Morphine Sulfate (Morphine) 2 mg SLOW IVP Q4H PRN PRN Reason: severe pain 4-10 Last Admin: 03/03/20 04:48 Dose: 2 mg Ondansetron HCl (Zofran) 4 mg IVP Q6H PRN PRN Reason: Nausea/Vomiting use 1st Last Admin: 03/01/20 17:19 Dose: 4 mg Oxybutynin Chloride (Ditropan) 5 mg PO TID [facility] Last Admin: 03/03/20 08:52 Dose: 5 mg Polyethylene Glycol (Miralax) 17 gm PO DAILY [facility] Last Admin: 03/03/20 08:52 Dose: 17 gm Vital Signs & Weight: Vital Signs Temp Pulse Resp BP Pulse Ox 03/03/20 08:48 98.7 F 108 H 14 146/65 H 93 L 03/03/20 04:36 98.8 F 109 H 20 117/56 L 92 L 03/03/20 04:30 98.8 F 109 H 18 117/56 L 92 L 03/03/20 04:00 99.1 F 03/02/20 23:54 97.2 F L Admit Weight 136 lb 1.6 oz Weight 136 lb 1.6 oz - Physical Exam General: no apparent distress HEENT: mucus membranes moist Neck: supple neck Cardiac: regular rate and rhythm Lungs: normal breath sounds Neuro: grossly intact Abdomen: active bowel sounds, tender Extremities: no edema Skin: clear Musculoskeletal: no pain - Labs Result Diagrams: 03/01/20 03:13 03/02/20 10:16 Troponin/CKMB Troponin I 0.028 ng/mL (< 0.028) 02/28/20 17:38 - Telemetry Sinus rhythms and dysrhythmias: sinus rhythm - Assessment/Plan Assessment/Plan: 1. Chronic abdominal pain. 2. High degree AV block 3. Hx of syncope 4. Urinary retention, daily self catheterizations and UTI's in the past. 5. MSSA abscess drained form scalp 1 month ago. PLAN: - Will need a PPM. Question is timing due to possible infection. - Will await Dr. Alex recommendations and patient will decide on timing of PPM placement. - She will talk to her and decided wether or not she wants the pacemaker or not. She would be at high risk of recurrence syncope and she understands and verbalizes understanding of this.
--- NOTE | 2020-03-03 14:18 | PDOC.HOSPP ---
- Subjective Encounter Date: 03/03/20 Encounter Time: 10:30 Subjective: pt up in bed no complains. she is able to eat - Objective Vital Signs & Weight: Vital Signs (12 hours) Temp Pulse Resp BP Pulse Ox 03/03/20 12:00 98.5 F 103 H 17 112/57 L 93 L 03/03/20 08:48 98.7 F 108 H 14 146/65 H 93 L 03/03/20 04:36 98.8 F 109 H 20 117/56 L 92 L 03/03/20 04:30 98.8 F 109 H 18 117/56 L 92 L 03/03/20 04:00 99.1 F Weight Admit Weight 136 lb 1.6 oz Weight 136 lb 1.6 oz Most Recent Monitor Data Heart Rate from ECG 105 NIBP 125/49 NIBP BP-Mean 74 Respiration from ECG 20 SpO2 93 I&O: 03/02/20 03/03/20 03/04/20 06:59 06:59 06:59 Intake Total 3035 2566 Output Total 960 1770 Balance 2075 796 Result Diagrams: 03/01/20 03:13 03/02/20 10:16 Additional Labs: Accuchecks 03/03/20 03/03/20 03/02/20 10:57 05:41 23:07 POC Glucose 215 H 226 H 174 H 03/02/20 03/02/20 20:18 16:43 POC Glucose 148 H 186 H Hospitalist ROS - Review of Systems Respiratory: denies: cough, dry, shortness of breath, hemoptysis, SOB with excertion, pleuritic pain, sputum, wheezing, other Cardiovascular: denies: chest pain, palpitations, orthopnea, paroxysmal noc. dyspnea, edema, light headedness, other Gastrointestinal: denies: nausea, vomiting, abdominal pain, diarrhea, constipation, melena, hematochezia, other - Medication Medications: Active Medications Generic Name Dose Route Start Last Admin Trade Name Freq PRN Reason Stop Dose Admin Hydrocodone Bitart/Acetaminophen 2 tab 03/02/20 14:21 03/03/20 08:54 Mallory 5/325 PO 2 tab Q6H PRN Administration Moderate Pain (4-6) Amoxicillin/Clavulanate Potassium 875 mg 03/02/20 21:00 03/03/20 08:53 Augmentin PO 03/04/20 09:01 875 mg BID DEVORA Administration Bacitracin 2 pk 02/29/20 21:00 03/03/20 11:25 Bacitracin TOP 2 pk BID DEVORA Administration Dextrose/Water 25 gm 02/28/20 22:53 03/01/20 05:36 Dextrose 50% SLOW IVP 25 gm PRN PRN Administration Hypoglycemia Enoxaparin Sodium 40 mg 02/29/20 09:00 03/03/20 08:53 Lovenox SC 40 mg 0900 DEVORA Administration Famotidine 20 mg 03/02/20 21:00 03/03/20 08:53 Pepcid PO 20 mg BID DEVORA Administration Hydralazine HCl 10 mg 02/28/20 22:16 03/02/20 21:10 Apresoline SLOW IVP 10 mg Q6H PRN Administration SBP GREATER THAN 160 Insulin Human Lispro 0 units 02/28/20 22:53 03/03/20 11:25 Humalog SC 3 unit .MILD SLIDING SCALE PRN Administration Mild Correctional Scale Metoclopramide HCl 5 mg 03/01/20 11:46 03/03/20 08:53 Reglan IVP 5 mg Q6H PRN Administration Nausea/Vomiting Morphine Sulfate 2 mg 02/28/20 22:16 03/03/20 04:48 Morphine SLOW IVP 2 mg Q4H PRN Administration severe pain 4-10 Ondansetron HCl 4 mg 02/28/20 22:16 03/01/20 17:19 Zofran IVP 4 mg Q6H PRN Administration Nausea/Vomiting use 1st Oxybutynin Chloride 5 mg 02/29/20 09:00 03/03/20 08:52 Ditropan PO 5 mg TID DEVORA Administration Polyethylene Glycol 17 gm 02/29/20 09:00 03/03/20 08:52 Miralax PO 17 gm DAILY DEVORA Administration - Exam Neck: negative: supple, symmetric, no JVD, no thyromegaly, no lymphadenopathy, no carotid bruit, JVD Heart: negative: RRR, no murmur, no gallops, no rubs, normal peripheral pulses, irregular, diminshed peripheral pulses, murmur present, II/IV, III/IV Respiratory: negative: CTAB, no wheezes, no rales, no ronchi, normal chest expansion, no tachypnea, normal percussion, rales, rhonchi, tachypneic, wheezes Gastrointestinal: soft, normal bowel sounds, tender to palpation Hosp A/P (1) Malnutrition Code(s): E46 - UNSPECIFIED PROTEIN-CALORIE MALNUTRITION Status: Acute (2) Nausea Code(s): R11.0 - NAUSEA Status: Acute (3) Abdominal pain Code(s): R10.9 - UNSPECIFIED ABDOMINAL PAIN Status: Acute Qualifiers: Abdominal location: generalized Qualified Code(s): R10.84 - Generalized abdominal pain (4) Anemia Code(s): D64.9 - ANEMIA, UNSPECIFIED Status: Acute (5) Hypokalemia Code(s): E87.6 - HYPOKALEMIA Status: Acute (6) UTI (urinary tract infection) Status: Acute (7) Urinary retention Code(s): R33.9 - RETENTION OF URINE, UNSPECIFIED Status: Acute (8) DM2 (diabetes mellitus, type 2) Status: Chronic (9) Colitis Code(s): K52.9 - NONINFECTIVE GASTROENTERITIS AND COLITIS, UNSPECIFIED Status : Acute (10) 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 she recently had an extensive workup with egd/colonoscopy for anemia. Had flow cyto and hemolysis panel. No indication of her anemia. she was tx for scalp infection with po abx cx indicated mssa. she comes in with abd pain and nausea. she self caths her self for urinary retention. her ct abd/pel negative for acute process she does have splenic infarct and mild colitis. she is on abx. 03/01 spoke with pt's in details about pt's overall medical issues. She continues to have abd pain significant at very very light touch. According to her she has abd pain in the past but has gotten worse. she has had a ct abd/pel with contrast twice and its been negative. lactic acid normal. EGD/colon no acute etiology noted. She did have significant dark stool in the colon per report. she also has splenic infarct unclear etiology possible due to her recent infection? she has had hemolysis work up no indication of MDS or leukemia. per she has had diabetes and has not been managing well ( this is in the past). I will get hbg alc, will start reglan to see if it helps with nausea. she has had bm so she has no sign of obstruction. Her crp is mildly elevated. esr is normal. I have added LUCERO. will also get ct brain to see if any reason for her nausea. she denies issues with swallowing. i have consulted gi but may need surgery to evaluate pt. will start her on ppn. 03/02 pt feels better and has been eating now. she also has had bm. will continue reglan for now. she still has abdomen pain on light touch. cx negative, will discontinue jacinto. will stop abx. she asked me for pain meds and i told her i would only continue norco and pain meds could worsen her abdomen pain. She will be taken off restraints. Her alc is normal. LUCERO pending. Not sure if there is a psy component to her abdomen pain vs narcotic dependency. However family states that she has only been taking muscle relaxant. 03/03 pt doing well and eating well. ID consulted to clear for pacemaker. PT to work with pt. per gi no intervention.
[2020-03-03 15:37] LABS: ANA Symphony (Qualitative) Negative (Negative); ANA Symphony (Quantitative) 0.2 Ratio (< 0.7 Negative); dsDNA IgG Antibody 1.9 IU/mL (<10 Negative)
--- NOTE | 2020-03-03 22:23 | CON ---
DATE OF CONSULTATION: 03/03/2020 REASON FOR CONSULTATION: Leukocytosis and indication for placement of a pacemaker and concern with undisclosed infectious process. HISTORY OF PRESENT ILLNESS: A 59-year-old patient, whom I had seen a few years ago, when she presented with a history of type 2 diabetes and neurogenic bladder requiring intermittent self catheterization. She has had episodes of pyelonephritis in the past bacteremia. She has had a cystoscopy with evidence of urinary retention and a when I saw her in . She was doing the self catheterization four or five times a day getting anywhere from 400 to 500 mL after voiding. She had another infection in 2016, which was treated. After that in April 2019, the patient presented with abdominal pain with a mild elevation of WBC count. The CT showed wall thickening of the colon. A stool workup was positive for C. difficile, so she took a 14-day course of oral vancomycin. She persisted with abdominal pain and this was ascribed to bladder spasms. The next time was in October 2019 and brought in with abdominal pain, generalized. CT abdomen and pelvis showed constipation, partial small bowel obstruction. She was treated conservatively with low intermittent NG suction, constipation, treated with Fleet's Enema and stool softener. She was given Rocephin for urinary tract findings. The next visit was right after this one in October of this year and the patient presented with abdominal pain again, suprapubic area pain, and abnormal urinalysis. CT abdomen and pelvis did not show any acute pathology, so she is discharged on insulin, oxybutynin, tizanidine, and Lopressor and the last admission was last month. The patient presented with a scalp lesion and weakness. There was purulent drainage and ultrasound show loculated abscess. This was I and D'd by Dr. Bloom. Because of abdominal pain, he also performed a diagnostic laparoscopy. The procedure was reviewed. The abdominal cavity was felt to be normal. There was a small amount of ascites. There was some adhesions, but other than that, nothing remarkable. The abdomen and pelvis CT at this time demonstrated a splenic infarct. Discharge medications this time included Augmentin and Lactinex. So now the patient comes back with altered mental status, decreased oral intake for the past several days , abdominal pain again, some diarrhea, and some vomiting. Initial findings included pulse 98, blood pressure 87/48, respirations 22, O2 saturation 94, and BP went up to 130/74 with IV fluids and the exam was remarkable for diffuse abdominal tenderness. Other findings included white cell count 15.8 down to 12.2, hemoglobin was 9.2, MCV 98, and platelets 289 with 88% neutrophils. Glucose was 50, sodium 133, potassium 2.9, and creatinine 0.76. Liver profile is normal. Alkaline phosphatase 95. Troponin 0.028. Albumin 1.9. CRP was 0.77. Urinalysis with 11 to 20 wbc's and white cell count, differential with 88% neutrophils. Two sets of blood cultures thus far no growth. This is a 72 hours urine culture, no growth at 36 hours. Currently, Ms. Sal is sitting in the room. She has been trying to get out of bed lately and she is better, but still a bit confused. Denies headaches. No visual symptoms, sore throat, odynophagia, dysphagia, diffuse abdominal tenderness, and some element of low back pain, which is chronic. She has weakness in lower extremities. She is able to move them equally though. PAST MEDICAL HISTORY: Type 2 diabetes, neurogenic bladder, urinary retention requiring in and out catheterization, and recurring episodes of abdominal pain not yet well explained even after exploratory laparoscopy. She has had one episode of C. diff in the past. She also has had splenic infarct not well explained of either. PAST SURGICAL HISTORY: She had cholecystectomy, hysterectomy, bladder biopsy, and recent scalp abscess due to methicillin-sensitive Staph aureus, which has resolved. SOCIAL HISTORY: Lives with family in [place]. Never smoked in her life. No alcoholic beverages use. She is disabled. ALLERGIES: SULFA DRUGS WITH RASH. MEDICATION: At the moment on; 1. P.R.N. medications. 2. DuoNeb. 3. Augmentin. 4. Dextrose. 5. Enoxaparin. 6. Pepcid. 7. Glucagon. 8. Insulin. 9. Reglan. 10. Morphine. 11. Zofran. 12. Ditropan. 13. MiraLAX. FAMILY HISTORY: Type 2 diabetes. PHYSICAL EXAMINATION: VITAL SIGNS: T-max 99.3, blood pressure 112/57, pulse 103, respirations 17, and O2 saturation 93. On arrival, she was 99 to 100. SKIN: She has onycholysis second toe left foot and paronychia in the first toe left side. She has the area of scalp abscess, which is healing well. She has a nice clean granulation base, a little bit of undermining. Some periorbital edema. She does not appear in distress. Peripheral IV access. She does not have a Pulido catheter. The nurse just did a scan and she had about 327 mL of urine within the bladder. No lymphadenopathy. There is some element of wasting syndrome. HEENT: Ocular movements conjugate. Oral cavity with numerous teeth in very poor shape, lot of decay of the enamel and periodontitis. NECK: Supple without jugular vein distention. LUNGS: With symmetric air entry. HEART: S1 and S2. Diminished heart sounds. No murmurs. ABDOMEN: Diffusely tender particularly in the lower quadrants. The bladder is moderately distended. No hepatosplenomegaly noted. EXTREMITIES: She has atrophy of the musculature of lower extremities with 2+ to 3+ edema, symmetric. Pulses are 1+ in dorsalis pedis. She is able to lift her legs from the bed and she is able to push my hand with her feet. Plantar responses are flexor. NEURO: Awake, knows her name. She knew she was in the hospital, but could not tell me the date. Her ability to recall the events that led to admission is not optimal. LABORATORY DATA: White cell count now is 12,000, hemoglobin 8.3, MCV 100, and platelets 305. Sodium 132, creatinine 0.99, and calcium 7.1. Urinalysis, the white cell count with 11 to 20 wbc's and the patient has always had high values of protein in urine. She had an LUCERO screen, which was negative just recently. ASSESSMENT: 1. Type 2 diabetes, neurogenic bladder, malnutrition, nephrotic syndrome, diffuse abdominal pain with a negative laparoscopy evaluation. 2. Previous episode of Clostridium difficile colitis. 3. Prior episodes of urinary tract infection with cystitis and pyelonephritis. 4. Splenic infarct, recently identified quite large. DISCUSSION: Differential diagnosis includes nephrotic syndrome associated with thrombotic disorders in the mesenteric and splenic circulation. Embolism from the heart for example in the setting of endocarditis, which appears to be less likely myeloproliferative disorder appears to be less likely. The dominant feature in her case is the nephrotic syndrome and the splenic infarct as well as the chronic abdominal symptoms and I cannot explain the nephrotic syndrome on the basis of diabetic nephropathy at this point in time. We will go ahead and quantify her protein excretion and submit serum protein electrophoresis and check her C. diff, if she has diarrhea. Job ID: [id number] MARIEL
[2020-03-04] MEDS: HYDROcodone/Acetaminophen 5/325 mg Tablet PO PRN ×3 (05:51→19:14)
[2020-03-04] MEDS: Bacitracin 1 PK TOP SCH ×2 (08:34→21:18)
[2020-03-04] MEDS: Amoxicillin/Potassium Clav 875 MG TAB PO SCH (08:35)
[2020-03-04] MEDS: Polyethylene Glycol 3350 17 GM Packet PO SCH (08:35)
[2020-03-04] MEDS: Enoxaparin Sodium 40 MG/0.4 ML SYRINGE SC SCH (08:35)
[2020-03-04] MEDS: Famotidine 20 MG TAB PO SCH ×2 (08:35→20:33)
[2020-03-04] MEDS: Oxybutynin 5 MG TAB PO SCH ×3 (08:35→20:34)
[2020-03-04 09:22] LABS: ALT (SGPT) Less than 7 U/L (8-55); AST (SGOT) 12 U/L (5-34); Albumin 1.7 g/dL (3.5-5.0); Alkaline Phosphatase 71 U/L (40-110); Anion Gap 9 mmol/L (10-20); BUN (Urea Nitrogen) 25 mg/dL (9.8-20.1); Bilirubin, Total 0.2 mg/dL (0.2-1.2); Calc. Creatinine Clearance 75 mL/min (70-130); Calcium 7.1 mg/dL (7.8-10.44); Carbon Dioxide 19 mmol/L (22-29); Chloride 115 mmol/L (98-107); Estimated GFR-MDRD 75; Globulin 2.3 g/dL (2.4-3.5); Glucose 117 mg/dL (70-105); Phosphorus 3.5 mg/dL (2.3-4.7); Potassium 4.1 mmol/L (3.5-5.1); Sodium 139 mmol/L (136-145)
[2020-03-04 10:26] LABS: #Basophils 0.1 thou/uL (0.0-0.2); #Eosinphils 0.5 thou/uL (0.0-0.7); #Lymphocytes 1.9 thou/uL (1.20-3.40); #Monocytes 0.8 thou/uL (0.11-0.59); #Neutrophils 10.1 thou/uL (1.40-6.50); %Basophils 0.8 % (0.0-1.0); %Eosinophils 3.9 % (0.0-10.0); %Lymphocytes 13.9 % (21.0-51.0); %Monocytes 5.6 % (0.0-10.0); %Neutrophils 75.7 % (42.0-75.0); Hemoglobin 7.2 g/dL (12.0-16.0); MDiff Complete? YES; Macrocytosis SLIGHT = 6-15 cells (100X) (0-5/hpf); Mean Corpuscular HGB CONC 32.3 g/dL (32.0-36.0); Mean Corpuscular Hemoglobin 33.7 pg (27.0-31.0); Mean Platelet Volume 6.9 fL (7.4-10.4); Platelet Count 336 thou/uL (130-400); RBC Distribution Width 14.1 % (11.5-14.5); Red Blood Cell (RBC) Count 2.13 mill/uL (4.20-5.40); White Blood Cell (WBC) Count 13.3 thou/uL (4.8-10.8)
--- NOTE | 2020-03-04 12:56 | PDOC.HOSPP ---
- Subjective Encounter Date: 03/04/20 Encounter Time: 11:15 Subjective: pt up in bed continues to complain of abdomen pain. - Objective Vital Signs & Weight: Vital Signs (12 hours) Temp Pulse Pulse Pulse Resp BP BP 03/04/20 11:49 98 F 104 H 20 03/04/20 09:58 104 H 101 H 183/72 H 163/75 H 03/04/20 08:40 98.4 F 100 16 03/04/20 05:48 98.1 F 101 H 18 BP Pulse Ox 03/04/20 11:49 137/63 94 L 03/04/20 09:58 03/04/20 08:40 143/63 H 93 L 03/04/20 05:48 136/62 94 L Weight Admit Weight 136 lb 1.6 oz Weight 136 lb 1.6 oz Most Recent Monitor Data Heart Rate from ECG 105 NIBP 125/49 NIBP BP-Mean 74 Respiration from ECG 20 SpO2 93 I&O: 03/03/20 03/04/20 03/05/20 06:59 06:59 06:59 Intake Total 2566 540 Output Total 1770 900 530 Balance 796 -360 -530 Result Diagrams: 03/04/20 08:51 03/04/20 08:51 Additional Labs: Accuchecks 03/04/20 03/04/20 03/03/20 11:57 05:24 20:01 POC Glucose 120 H 109 129 H 03/03/20 16:49 POC Glucose 141 H Hospitalist ROS - Review of Systems Cardiovascular: denies: chest pain, palpitations, orthopnea, paroxysmal noc. dyspnea, edema, light headedness, other Gastrointestinal: reports: abdominal pain. denies: nausea, vomiting, diarrhea, constipation, melena, hematochezia, other Genitourinary: denies: dysuria, frequency, incontinence, hematuria, retention, other - Medication Medications: Active Medications Generic Name Dose Route Start Last Admin Trade Name Freq PRN Reason Stop Dose Admin Hydrocodone Bitart/Acetaminophen 2 tab 03/02/20 14:21 03/04/20 12:25 Theodore 5/325 PO 2 tab Q6H PRN Administration Moderate Pain (4-6) Bacitracin 2 pk 02/29/20 21:00 03/04/20 08:34 Bacitracin TOP 2 pk BID DEVORA Administration Dextrose/Water 25 gm 02/28/20 22:53 03/01/20 05:36 Dextrose 50% SLOW IVP 25 gm PRN PRN Administration Hypoglycemia Enoxaparin Sodium 40 mg 02/29/20 09:00 03/04/20 08:35 Lovenox SC 40 mg 0900 DEVORA Administration Famotidine 20 mg 03/02/20 21:00 03/04/20 08:35 Pepcid PO 20 mg BID DEVORA Administration Hydralazine HCl 10 mg 02/28/20 22:16 03/02/20 21:10 Apresoline SLOW IVP 10 mg Q6H PRN Administration SBP GREATER THAN 160 Insulin Human Lispro 0 units 02/28/20 22:53 03/03/20 11:25 Humalog SC 3 unit .MILD SLIDING SCALE PRN Administration Mild Correctional Scale Morphine Sulfate 2 mg 02/28/20 22:16 03/03/20 04:48 Morphine SLOW IVP 2 mg Q4H PRN Administration severe pain 4-10 Ondansetron HCl 4 mg 02/28/20 22:16 03/01/20 17:19 Zofran IVP 4 mg Q6H PRN Administration Nausea/Vomiting use 1st Oxybutynin Chloride 5 mg 02/29/20 09:00 03/04/20 08:35 Ditropan PO 5 mg TID DEVORA Administration Polyethylene Glycol 17 gm 02/29/20 09:00 03/04/20 08:35 Miralax PO 17 gm DAILY DEVORA Administration - Exam Neck: negative: supple, symmetric, no JVD, no thyromegaly, no lymphadenopathy, no carotid bruit, JVD Heart: negative: RRR, no murmur, no gallops, no rubs, normal peripheral pulses, irregular, diminshed peripheral pulses, murmur present, II/IV, III/IV Respiratory: negative: CTAB, no wheezes, no rales, no ronchi, normal chest expansion, no tachypnea, normal percussion, rales, rhonchi, tachypneic, wheezes Gastrointestinal: soft, normal bowel sounds Gastrointestinal - other findings: abdomen pain Extremities: negative: no cyanosis, no clubbing, no edema, 1+ LE edema, 2+ LE edema, clubbing Hosp A/P (1) Malnutrition Code(s): E46 - UNSPECIFIED PROTEIN-CALORIE MALNUTRITION Status: Acute (2) Nausea Code(s): R11.0 - NAUSEA Status: Acute (3) Abdominal pain Code(s): R10.9 - UNSPECIFIED ABDOMINAL PAIN Status: Acute Qualifiers: Abdominal location: generalized Qualified Code(s): R10.84 - Generalized abdominal pain (4) Anemia Code(s): D64.9 - ANEMIA, UNSPECIFIED Status: Acute (5) Hypokalemia Code(s): E87.6 - HYPOKALEMIA Status: Acute (6) UTI (urinary tract infection) Status: Acute (7) Urinary retention Code(s): R33.9 - RETENTION OF URINE, UNSPECIFIED Status: Acute (8) DM2 (diabetes mellitus, type 2) Status: Chronic (9) Colitis Code(s): K52.9 - NONINFECTIVE GASTROENTERITIS AND COLITIS, UNSPECIFIED Status : Acute (10) 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 she recently had an extensive workup with egd/colonoscopy for anemia. Had flow cyto and hemolysis panel. No indication of her anemia. she was tx for scalp infection with po abx cx indicated mssa. she comes in with abd pain and nausea. she self caths her self for urinary retention. her ct abd/pel negative for acute process she does have splenic infarct and mild colitis. she is on abx. 03/01 spoke with pt's in details about pt's overall medical issues. She continues to have abd pain significant at very very light touch. According to her she has abd pain in the past but has gotten worse. she has had a ct abd/pel with contrast twice and its been negative. lactic acid normal. EGD/colon no acute etiology noted. She did have significant dark stool in the colon per report. she also has splenic infarct unclear etiology possible due to her recent infection? she has had hemolysis work up no indication of MDS or leukemia. per she has had diabetes and has not been managing well ( this is in the past). I will get hbg alc, will start reglan to see if it helps with nausea. she has had bm so she has no sign of obstruction. Her crp is mildly elevated. esr is normal. I have added LUCERO. will also get ct brain to see if any reason for her nausea. she denies issues with swallowing. i have consulted gi but may need surgery to evaluate pt. will start her on ppn. 03/02 pt feels better and has been eating now. she also has had bm. will continue reglan for now. she still has abdomen pain on light touch. cx negative, will discontinue jacinto. will stop abx. she asked me for pain meds and i told her i would only continue norco and pain meds could worsen her abdomen pain. She will be taken off restraints. Her alc is normal. LUCERO pending. Not sure if there is a psy component to her abdomen pain vs narcotic dependency. However family states that she has only been taking muscle relaxant. 03/03 pt doing well and eating well. ID consulted to clear for pacemaker. PT to work with pt. per gi no intervention. 03/04 pt eating without any issues. check 24hr protein. will get PT to get pt up.
[2020-03-04] MEDS: Morphine 2 MG/ML SYRINGE SLOW IVP PRN (15:50)
[2020-03-04 17:27] LABS: Urine Total Volume 2525 mL (250-2400)
[2020-03-04] MEDS: hydrALAZINE 20 MG/ML VIAL SLOW IVP PRN (17:40)
[2020-03-04 18:05] LABS: Protein - 24 Hr 5757 mg/24 hr (Less than 300); Protein, Urine 228 mg/dL (1-14)
[2020-03-04 22:57] LABS: Bacteria/HPF 4+ HPF (None Seen); Bilirubin Negative (Negative); Blood, Urine 2+ (Negative); Clarity Extra Turbid (Clear); Glucose, Urine (Dipstick) 100 mg/dL (Negative); Leukocyte 500 Leu/uL (Negative); Nitrite Negative (Negative); Protein, Urine (Dipstick) 300 mg/dL (Neg-Trace); RBC/HPF 21-50 HPF (0-3); Urobilinogen Normal mg/dL (Less than 2); WBC/HPF Greater than 50 HPF (0-3)
[2020-03-04 22:59] LABS: Urine Culture Reflex No No
[2020-03-04] MEDS: Ondansetron PF 4 MG/2 ML Vial IVP PRN (23:35)
[2020-03-05] MEDS: Morphine 2 MG/ML SYRINGE SLOW IVP PRN (00:12)
[2020-03-05 04:58] LABS: #Basophils 0.1 thou/uL (0.0-0.2); #Eosinphils 0.5 thou/uL (0.0-0.7); #Monocytes 0.4 thou/uL (0.11-0.59); #Neutrophils 8.5 thou/uL (1.40-6.50); %Basophils 1.2 % (0.0-1.0); %Eosinophils 4.1 % (0.0-10.0); %Lymphocytes 17.5 % (21.0-51.0); %Monocytes 3.7 % (0.0-10.0); %Neutrophils 73.5 % (42.0-75.0); Mean Corpuscular HGB CONC 31.5 g/dL (32.0-36.0); Mean Corpuscular Hemoglobin 33.2 pg (27.0-31.0); Mean Platelet Volume 6.2 fL (7.4-10.4); Platelet Count 364 thou/uL (130-400); RBC Distribution Width 13.8 % (11.5-14.5); White Blood Cell (WBC) Count 11.5 thou/uL (4.8-10.8)
[2020-03-05 05:18] LABS: Anion Gap 7 mmol/L (10-20); BUN (Urea Nitrogen) 28 mg/dL (9.8-20.1); Calc. Creatinine Clearance 77 mL/min (70-130); Calcium 7.3 mg/dL (7.8-10.44); Carbon Dioxide 21 mmol/L (22-29); Chloride 115 mmol/L (98-107); Estimated GFR-MDRD 78; Glucose 87 mg/dL (70-105); Potassium 4.2 mmol/L (3.5-5.1); Sodium 139 mmol/L (136-145)
[2020-03-05] MEDS: hydrALAZINE 20 MG/ML VIAL SLOW IVP PRN (05:39)
[2020-03-05] MEDS: Bacitracin 1 PK TOP SCH ×2 (09:00→21:37)
[2020-03-05] MEDS: Enoxaparin Sodium 40 MG/0.4 ML SYRINGE SC SCH (10:06)
[2020-03-05] MEDS: HYDROcodone/Acetaminophen 5/325 mg Tablet PO PRN ×2 (10:06→17:38)
[2020-03-05] MEDS: Famotidine 20 MG TAB PO SCH ×2 (10:06→21:37)
[2020-03-05] MEDS: Oxybutynin 5 MG TAB PO SCH ×3 (10:06→21:37)
[2020-03-05] MEDS: Polyethylene Glycol 3350 17 GM Packet PO SCH (10:08)
--- NOTE | 2020-03-05 17:52 | PDOC.HOSPP ---
- Subjective Encounter Date: 03/05/20 Encounter Time: 10:15 Subjective: pt up in bed still has pain to her abdomen. - Objective Vital Signs & Weight: Vital Signs (12 hours) Temp Pulse Resp BP Pulse Ox 03/05/20 15:31 98.5 F 99 18 170/72 H 95 03/05/20 11:18 98.7 F 100 16 119/56 L 97 03/05/20 08:00 95 03/05/20 07:32 98.7 F 104 H 14 122/56 L 95 03/05/20 06:32 111/57 L Weight Admit Weight 136 lb 1.6 oz Weight 138 lb Most Recent Monitor Data Heart Rate from ECG 105 NIBP 125/49 NIBP BP-Mean 74 Respiration from ECG 20 SpO2 93 I&O: 03/04/20 03/05/20 03/06/20 06:59 06:59 06:59 Intake Total 540 1211 481 Output Total 900 1455 290 Balance -360 -244 191 Result Diagrams: 03/05/20 04:50 03/05/20 04:50 Additional Labs: Accuchecks 03/05/20 03/05/20 03/04/20 17:08 10:33 20:46 POC Glucose 141 H 110 126 H Hospitalist ROS - Review of Systems Cardiovascular: denies: chest pain, palpitations, orthopnea, paroxysmal noc. dyspnea, edema, light headedness, other Gastrointestinal: denies: nausea, vomiting, abdominal pain, diarrhea, constipation, melena, hematochezia, other Genitourinary: denies: dysuria, frequency, incontinence, hematuria, retention, other - Medication Medications: Active Medications Generic Name Dose Route Start Last Admin Trade Name Freq PRN Reason Stop Dose Admin Hydrocodone Bitart/Acetaminophen 2 tab 03/02/20 14:21 03/05/20 17:38 [place] 5/325 PO 2 tab Q6H PRN Administration Moderate Pain (4-6) Bacitracin 2 pk 02/29/20 21:00 03/05/20 09:00 Bacitracin TOP 2 pk BID DEVORA Administration Dextrose/Water 25 gm 02/28/20 22:53 03/01/20 05:36 Dextrose 50% SLOW IVP 25 gm PRN PRN Administration Hypoglycemia Enoxaparin Sodium 40 mg 02/29/20 09:00 03/05/20 10:06 Lovenox SC 40 mg 0900 DEVORA Administration Famotidine 20 mg 03/02/20 21:00 03/05/20 10:06 Pepcid PO 20 mg BID DEVORA Administration Hydralazine HCl 10 mg 02/28/20 22:16 03/05/20 05:39 Apresoline SLOW IVP 10 mg Q6H PRN Administration SBP GREATER THAN 160 Insulin Human Lispro 0 units 02/28/20 22:53 03/03/20 11:25 Humalog SC 3 unit .MILD SLIDING SCALE PRN Administration Mild Correctional Scale Morphine Sulfate 2 mg 02/28/20 22:16 03/05/20 00:12 Morphine SLOW IVP 2 mg Q4H PRN Administration severe pain 4-10 Ondansetron HCl 4 mg 02/28/20 22:16 03/04/20 23:35 Zofran IVP 4 mg Q6H PRN Administration Nausea/Vomiting use 1st Oxybutynin Chloride 5 mg 02/29/20 09:00 03/05/20 15:20 Ditropan PO 5 mg TID DEVORA Administration Polyethylene Glycol 17 gm 02/29/20 09:00 03/05/20 10:08 Miralax PO Not Given DAILY DEVORA - Exam Neck: negative: supple, symmetric, no JVD, no thyromegaly, no lymphadenopathy, no carotid bruit, JVD Heart: negative: RRR, no murmur, no gallops, no rubs, normal peripheral pulses, irregular, diminshed peripheral pulses, murmur present, II/IV, III/IV Respiratory: negative: CTAB, no wheezes, no rales, no ronchi, normal chest expansion, no tachypnea, normal percussion, rales, rhonchi, tachypneic, wheezes Gastrointestinal: soft, normal bowel sounds, tender to palpation Extremities: 1+ LE edema Hosp A/P (1) Malnutrition Code(s): E46 - UNSPECIFIED PROTEIN-CALORIE MALNUTRITION Status: Acute (2) Nausea Code(s): R11.0 - NAUSEA Status: Acute (3) Abdominal pain Code(s): R10.9 - UNSPECIFIED ABDOMINAL PAIN Status: Acute Qualifiers: Abdominal location: generalized Qualified Code(s): R10.84 - Generalized abdominal pain (4) Anemia Code(s): D64.9 - ANEMIA, UNSPECIFIED Status: Acute (5) Hypokalemia Code(s): E87.6 - HYPOKALEMIA Status: Acute (6) UTI (urinary tract infection) Status: Acute (7) Urinary retention Code(s): R33.9 - RETENTION OF URINE, UNSPECIFIED Status: Acute (8) DM2 (diabetes mellitus, type 2) Status: Chronic (9) Colitis Code(s): K52.9 - NONINFECTIVE GASTROENTERITIS AND COLITIS, UNSPECIFIED Status : Acute (10) 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 she recently had an extensive workup with egd/colonoscopy for anemia. Had flow cyto and hemolysis panel. No indication of her anemia. she was tx for scalp infection with po abx cx indicated mssa. she comes in with abd pain and nausea. she self caths her self for urinary retention. her ct abd/pel negative for acute process she does have splenic infarct and mild colitis. she is on abx. 03/01 spoke with pt's in details about pt's overall medical issues. She continues to have abd pain significant at very very light touch. According to her she has abd pain in the past but has gotten worse. she has had a ct abd/pel with contrast twice and its been negative. lactic acid normal. EGD/colon no acute etiology noted. She did have significant dark stool in the colon per report. she also has splenic infarct unclear etiology possible due to her recent infection? she has had hemolysis work up no indication of MDS or leukemia. per she has had diabetes and has not been managing well ( this is in the past). I will get hbg alc, will start reglan to see if it helps with nausea. she has had bm so she has no sign of obstruction. Her crp is mildly elevated. esr is normal. I have added MARIANNE. will also get ct brain to see if any reason for her nausea. she denies issues with swallowing. i have consulted gi but may need surgery to evaluate pt. will start her on ppn. 03/02 pt feels better and has been eating now. she also has had bm. will continue reglan for now. she still has abdomen pain on light touch. cx negative, will discontinue jacnito. will stop abx. she asked me for pain meds and i told her i would only continue norco and pain meds could worsen her abdomen pain. She will be taken off restraints. Her alc is normal. MARIANNE pending. Not sure if there is a psy component to her abdomen pain vs narcotic dependency. However family states that she has only been taking muscle relaxant. 03/03 pt doing well and eating well. ID consulted to clear for pacemaker. PT to work with pt. per gi no intervention. 03/04 pt eating without any issues. check 24hr protein. will get PT to get pt up. 03/05 will get nephrology to see the pt for possible nephrotic syndrome. marianne negative. pt is eating. laproscopic exp was normal. pt still thinking about pacemaker. serum electrophoresis was ordered.
[2020-03-05 19:39] LABS: 24 Hr Creatinine 1247.35 mg/24 hr (710-1650); Creatinine, Urine 49.4 mg/dL (47-110)
[2020-03-05] MEDS ORDERED: Albumin 25% 25 GM/100 ML BOT IVPB SCH (19:45)
[2020-03-05] MEDS ORDERED: Spironolactone 25 MG TAB PO SCH (20:00)
--- NOTE | 2020-03-05 20:42 | CON ---
DATE OF CONSULTATION: 03/04/2020 SERVICE: Nephrology. REASON FOR CONSULTATION: Nephritic range proteinuria. REQUESTING PHYSICIAN: Kinsey Maravilla MD HISTORY OF PRESENT ILLNESS: A 59-year-old female with longstanding history of diabetes complicated with neurogenic bladder, associated with multiple/recurrent urinary tract infections. She was just admitted to the hospital with altered mental status associated with decreased oral intake, abdominal pain, nausea, and some vomiting. The patient was found to be hypotensive and was initially admitted to the ICU, but was subsequently transferred to the floor. There was some concern about occult infection given multiple recurrent infections, recent scalp abscess and splenic infarct. Infectious Diseases consult was requested to evaluate the patient as pacemaker placement was contemplated for bradycardia. Hospital course was complicated by the element of generalized swelling, physical deconditioning, and poor oral intake. It was; however, found that the patient has proteinuria in urine and 24-hour urine collection showed nephrotic range proteinuria associated with generalized edema and hypoalbuminemia. Nephrology consult was obtained for further evaluation of possible nephrotic syndrome. The patient complains of generalized weakness, poor appetite, and fatigue. Denied nausea or vomiting. She also admitted to generalized swelling. Of note, the patient was recently discharged from this hospital last month after exploratory laparotomy as well as incision and drainage of scalp abscess. PAST MEDICAL HISTORY: 1. Type 2 diabetes. 2. Neurogenic bladder. 3. Recurrent urinary tract infection. 4. Recurrent abdominal pain. 5. Splenic infarct. 6. Anxiety and depression. 7. Fibromyalgia. PAST SURGICAL HISTORY: 1. L4-L5 fusion. 2. Cholecystectomy. 3. Hysterectomy. 4. Left hip surgery. 5. Bladder biopsy. 6. Incision and drainage of right parieto-occipital scalp abscess. 7. Respiratory laparotomy. FAMILY HISTORY: Reviewed, but noncontributory. SOCIAL HISTORY: The patient lives with spouse. Denied alcohol, tobacco, or recreational drug use. ALLERGIES: SULFA DRUGS. MEDICATIONS: Prior to hospital medications; 1. Tizanidine 4 mg q.8 hours. 2. Oxybutynin 5 mg p.o. t.i.d. 3. Acidophilus (Lactinex chewable) one tablet p.o. t.i.d. 4. Recent treatment with Augmentin for seven days, which has been completed. Current hospital medications are as follows; 1. Ergocalciferol 1.25 p.o. every 7 days. 2. Cholecalciferol 400 units daily. 3. Lovenox 40 mg subcu daily. 4. Pepcid 20 mg p.o. b.i.d. 5. Oxybutynin 5 mg p.o. t.i.d. 6. MiraLAX 17 g p.o. daily. 7. DuoNeb p.r.n. REVIEW OF SYSTEMS: A 12-point review of system performed was negative other than pertinent positives and negatives included in the history of present illness. PHYSICAL EXAMINATION: VITAL SIGNS: Temperature 98.5, pulse 99, respiratory rate 18, SpO2 of 95% on room air, and blood pressure most current is 170/72. However, review of medical records showed a previous blood pressures ranges from 110 to 170. I and O in the last 24 hours showed total intake of 1211 with total output of 1455. GENERAL: Chronically ill-looking female, in no obvious distress. HEENT: Normocephalic. Right frontoparietal scalp dressing noted. Oral mucosa is moist. NECK: Supple with no obvious JVD. CARDIOVASCULAR: Regular rhythm and rate with normal heart sounds one and two. RESPIRATORY: Fair air entry bilaterally with some transmitted breath sounds. No obvious rhonchi or use of accessory muscles appreciated. Air entry; however, is decreased at both bases. GI: Full and soft with mild diffuse tenderness. Bowel sound is normoactive. UROGENITAL: Pulido catheter is in place draining some urine. EXTREMITIES: Moderate diffuse edema of the extremities and lower back noted. No obvious erythema appreciated. LINOTYPE MECHANIC: Conscious and alert and oriented x3 with appropriate mental status. Cranial nerves 2 through 12 are grossly intact. The patient moves all extremities, but weakly. DIAGNOSTIC DATA: CBC today showed WBC count of 11.5, hemoglobin of 7.0, MCV of 100.5, and platelet of 364. Review of medical records showed that hemoglobin has gone down from 9.2 on admission to 7.0 currently. It also showed the patient has had chronic anemia dating back to 2016. BMP today showed sodium 139, potassium 4.2, chloride 115, CO2 of 21, BUN 28, creatinine 0.76, glucose 87, and calcium 7.3. CMP yesterday; however, showed sodium 139, potassium 4.1, chloride 115, CO2 of 19, BUN 25, creatinine 0.78, glucose 117, calcium 7.1, phosphorus 3.5, magnesium 2.0, total bilirubin 0.2, AST 12, ALT less than 7, alkaline phosphatase 71, total protein 4.0, albumin 1.7, and globulin 2.3. Review of medical records showed that creatinine has been stable ranging from 0.7 to 1.0. She; however, recently had an acute kidney injury with peak creatinine of 1.87, which has resolved to baseline. Vitamin D is 5.0. Urinalysis performed yesterday March 04 showed extra turbid urine with pH of 6.5, specific gravity of 1.022, urine protein 300 mg/dL, urine glucose 100, negative ketones, 2+ blood, and negative nitrite and bilirubin. Leukocyte esterase; however, was elevated at 500. Microscopy showed 21 to 50 rbc and greater than 50 wbc and 4+ bacteria. Review of urinalysis dating back to 11/18/2011 shows persistent active urinary sediment with hematuria and pyuria as well as almost consistent proteinuria. A 24-hour urine collection on March 04 showed total urine collection of 2525 with 24-hour urine protein of 5757. LUCERO screen performed on March 01 was unremarkable. Anticardiolipin antibody also performed on January 29 was also unremarkable. Also prothrombin mutation test performed on January 30 also was negative for prothrombin mutation. Iron chemistry performed in January showed serum iron of 75, TIBC of 151, and ferritin of 907. Hemoglobin A1c performed on March 01 was 4.3. Serum protein electrophoresis ordered is pending at this time. Renal ultrasound performed on January 27 showed right kidney measuring 10.1 in length and left measuring 11.6 in length. There was no focal mass, renal calculus, or hydronephrosis. Echocardiogram of the heart performed on January 31 showed preserved systolic function with EF of 50 to 55. E:A flow reversal noted suggestive of diastolic dysfunction. There was mild to moderate mitral regurgitation as well as mild tricuspid regurgitation. Of note, no masses or vegetations were noted. ASSESSMENT: 1. Nephrotic syndrome: This is premixed and therefore the patient had nephrotic range proteinuria associated with anasarca and hypoalbuminemia. The etiology is unclear. The patient has longstanding diabetes associated with neurogenic bladder, making diabetic nephropathy most likely. However, given other comorbidities glomerulonephritis as well as idiopathic nephrotic syndrome and other consistent nephrotic syndrome cannot be ruled out. 2. Hypoalbuminemia. 3. Protein-calorie malnutrition. 4. Vitamin D deficiency. 5. Anemia of chronic illness/chronic kidney disease. PLAN: 1. We will start the patient on albumin as well as diuretic therapy with Lasix and spironolactone to help improve the generalized anasarca. 2. We will also start the patient on low-dose lisinopril to help reduce proteinuria. 3. Plasma protein electrophoresis ordered is pending at this time. 4. We will also order kappa and lambda light chain ratio as well as a 24-hour urine protein electrophoresis with immunofixation. 5. We will also get renal biopsy on this patient, this could help clear out the doubt if this is diabetic nephropathy or other etiologies, which may be treatable. I have discussed with this patient about need for renal biopsy and she is agreeable. We will plan to do the renal biopsy tomorrow if it could be accommodated by [facility]. 6. We will get coagulation panel tomorrow morning on hold Lovenox in the morning. 7. Further treatment to follow depending on hospital course. 8. Many thanks for involving us in the care of this patient. 9. We will also get fasting lipid panel in the morning. Job ID: [id number]
[2020-03-05] MEDS: Lisinopril 2.5 MG TAB PO SCH (21:36)
[2020-03-05] MEDS: Furosemide 20 MG TAB PO SCH (21:37)
[2020-03-06] MEDS: hydrALAZINE 20 MG/ML VIAL SLOW IVP PRN ×3 (01:04→22:12)
[2020-03-06 04:50] LABS: Hemoglobin 6.5 g/dL (12.0-16.0); Mean Corpuscular HGB CONC 32.3 g/dL (32.0-36.0); Mean Corpuscular Hemoglobin 33.9 pg (27.0-31.0); Platelet Count 383 thou/uL (130-400); RBC Distribution Width 13.6 % (11.5-14.5); Red Blood Cell (RBC) Count 1.93 mill/uL (4.20-5.40); White Blood Cell (WBC) Count 8.2 thou/uL (4.8-10.8)
[2020-03-06 04:59] LABS: PTT 35.3 sec (22.9-36.1); Prothrombin Time 13.3 sec (12.0-14.7)
[2020-03-06] MEDS: HYDROcodone/Acetaminophen 5/325 mg Tablet PO PRN ×2 (05:02→11:23)
[2020-03-06 05:12] LABS: Albumin 2.1 g/dL (3.5-5.0); Anion Gap 6 mmol/L (10-20); BUN (Urea Nitrogen) 24 mg/dL (9.8-20.1); BUN/Creatinine Ratio 34.29; Calc. Creatinine Clearance 84 mL/min (70-130); Calcium 7.3 mg/dL (7.8-10.44); Carbon Dioxide 22 mmol/L (22-29); Cardiac Risk 3.8 (Less than 4.5); Chloride 115 mmol/L (98-107); Cholesterol 95 mg/dl (< 200 Desired); Estimated GFR-MDRD 85; Glucose 89 mg/dL (70-105); HDL Cholesterol 25 mg/dL (>60 Neg Risk); LDL Cholesterol, Calculated 48 mg/dL; Sodium 139 mmol/L (136-145); Triglycerides 111 mg/dL (Less than 150)
[2020-03-06] MEDS: Albumin 25% 25 GM/100 ML BOT IVPB SCH ×3 (07:12→22:54)
[2020-03-06] MEDS: Cholecalciferol (Vitamin D3) 400 UNITS TAB PO SCH (10:59)
[2020-03-06] MEDS: Famotidine 20 MG TAB PO SCH (10:59)
[2020-03-06] MEDS: Bacitracin 1 PK TOP SCH ×2 (10:59→20:29)
[2020-03-06] MEDS: Spironolactone 25 MG TAB PO SCH ×2 (10:59→16:47)
[2020-03-06] MEDS: Furosemide 20 MG TAB PO SCH ×2 (10:59→20:29)
[2020-03-06] MEDS: Lisinopril 2.5 MG TAB PO SCH ×2 (11:00→20:27)
[2020-03-06] MEDS: Oxybutynin 5 MG TAB PO SCH ×3 (11:00→20:29)
[2020-03-06] MEDS: Polyethylene Glycol 3350 17 GM Packet PO SCH (11:00)
[2020-03-06] MEDS ORDERED: Midazolam HCl 2 mg/2 ml Vial ONE (11:09)
[2020-03-06] MEDS ORDERED: Fentanyl 100 MCG/2 ML VIAL ONE (11:09)
[2020-03-06] MEDS ORDERED: Sodium Bicarbonate 2.5 MEQ/5 ML VIAL ONE (11:09)
--- NOTE | 2020-03-06 12:15 | PRG ---
DATE OF SERVICE: 03/06/2020 SERVICE: Nephrology. SUBJECTIVE: A 59-year-old female with comorbidities, seen in followup for nephrotic range proteinuria. The patient still complains of generalized weakness and swelling and poor appetite and oral intake. Denied nausea, vomiting, or diarrhea. Awaiting for renal biopsy. OBJECTIVE: VITAL SIGNS: Temperature 98.5, pulse 101, respiratory rate 16, SpO2 of 98% on room air, blood pressure is 126/60. I and O in the last 24 hours showed total intake of 581 with total output of 1190. GENERAL: Chronically ill-looking female, in no obvious distress. Afebrile. HEENT: Normocephalic. Right parietal frontal scalp dressing noted. Oral mucosa is dry. CARDIOVASCULAR: Regular rhythm and rate with normal heart sounds one and two. RESPIRATORY: Fair air entry bilateral, decreased at both bases. No respiratory distress appreciated. GI: Flat, soft with mild diffuse tenderness. UROGENITAL: Pulido catheter is in place. EXTREMITIES: [id number] edema of upper extremities with moderate edema of both lower extremities noted. No erythema appreciated. MOLD DRESSER: Conscious, alert, oriented x3 with appropriate mental status. The patient moves all extremities very weakly. DIAGNOSTIC DATA: CBC showed WBC count of 8.2, hemoglobin of 6.5, platelet of 383. Coagulation panel showed PT 13.3, INR 1.0, PTT 35.3. Chemistry today showed sodium 139, potassium 4.0, chloride 115, CO2 of 22, BUN 24, creatinine 0.7, glucose 89, calcium 7.3, phosphorus 4.0, albumin 3.1. Lipid panel showed cholesterol 95, LDL 48, HDL 25. A 24 hour urine collection collected on March 04 showed total volume of 2525 with 24 hour urine collection of 1247.35 and a 24-hour urine total protein of 5757. UPEP, SPEP and free light chain are pending at this time. ASSESSMENT: 1. Nephrotic syndrome: Etiology is unclear. Diabetic nephropathy remain a concern as well as other etiologies including glomerulonephritis, idiopathic nephrotic syndrome and cast nephropathy. 2. Anasarca: Due to hypoproteinemia. 3. Volume contraction. 4. Anemia: Chronic. Acute drop in hemoglobin is due to expansion of intravascular space with albumin. PLAN: 1. Get renal biopsy as ordered. 2. Await UPEP, SPEP and free light chain. 3. We will continue lisinopril as well as spironolactone on Lasix. 4. We will also expand the intravascular space with albumin which will also help mobilize 3rd space fluid. 5. We will monitor intake and output. 6. Nutritional rehabilitation recommended. 7. Further treatment to follow depending on hospital course. 8. We will monitor electrolytes and renal function. Job ID: [id number]
--- NOTE | 2020-03-06 13:36 | CT ---
Renal biopsy random CT-guided HISTORY: Nephrotic proteinuria. FINDINGS: After explaining the procedure and answering all questions, limited CT imaging of the abdom en was performed. Sterile technique, buffered local anesthesia, CT guidance, and a right posterior approach were used to carefully advance a 17-gauge trocar needle to the hypovascular zone near the in ferior pole of the right kidney. Oblique presentation was planned to maximize acquisition of glomeruli. A total of 2 18-gauge core biopsy specimens were obtained and submitted to Dr. Gonzalez from pathology. Postprocedure imaging after needle removal showed small amount of retroperitoneal blood. Patient tolerated the procedure well and was returned in unchanged condition. IMPRESSION : Technically successful CT-guided random renal biopsy.
[2020-03-06] MEDS: Ondansetron PF 4 MG/2 ML Vial IVP PRN (16:22)
--- NOTE | 2020-03-06 16:35 | PDOC.HOSPP ---
- Subjective Encounter Date: 03/06/20 Encounter Time: 16:33 Subjective: Ms. Sal was seen today in follow-up of Bradycardia, weakness, and chronic nausea. She says she continues to feel nauseated. She denies lalit abdominal pain. She is not sure if she has had dark stools. - Objective Vital Signs & Weight: Vital Signs (12 hours) Temp Pulse Pulse Resp BP BP Pulse Ox 03/06/20 15:50 98.7 F 104 H 18 131/63 98 03/06/20 15:14 115/55 L 03/06/20 14:40 101 H 03/06/20 14:30 98.0 F 103 H 12 200/91 H 93 L 03/06/20 14:08 98.3 F 101 H 12 188/83 H 93 L 03/06/20 11:00 101 H 03/06/20 07:37 98.5 F 101 H 16 126/60 98 03/06/20 04:45 98.9 F 105 H 16 116/56 L 94 L Weight Admit Weight 136 lb 1.6 oz Weight 138 lb Most Recent Monitor Data Heart Rate from ECG 105 NIBP 125/49 NIBP BP-Mean 74 Respiration from ECG 20 SpO2 93 I&O: 03/05/20 03/06/20 03/07/20 06:59 06:59 06:59 Intake Total 1211 581 0 Output Total 1455 1190 Balance -244 -609 0 Result Diagrams: 03/06/20 04:40 03/06/20 04:40 Additional Labs: Accuchecks 03/06/20 03/06/20 03/05/20 10:16 04:34 19:42 POC Glucose 102 109 171 H 03/05/20 17:08 POC Glucose 141 H Hospitalist ROS - Medication Medications: Active Medications Generic Name Dose Route Start Last Admin Trade Name Freq PRN Reason Stop Dose Admin Hydrocodone Bitart/Acetaminophen 2 tab 03/02/20 14:21 03/06/20 11:23 [place] 5/325 PO 2 tab Q6H PRN Administration Moderate Pain (4-6) Albumin Human 25 gm 03/06/20 07:00 03/06/20 07:12 Albumin 25% IVPB 03/06/20 23:01 25 gm Q8H DEVORA Administration Bacitracin 2 pk 02/29/20 21:00 03/06/20 10:59 Bacitracin TOP Not Given BID [facility] Cholecalciferol 400 units 03/06/20 09:00 03/06/20 10:59 Vitamin D PO Not Given DAILY [facility] Dextrose/Water 25 gm 02/28/20 22:53 03/01/20 05:36 Dextrose 50% SLOW IVP 25 gm PRN PRN Administration Hypoglycemia Enoxaparin Sodium 40 mg 02/29/20 09:00 03/05/20 10:06 Lovenox SC 40 mg 0900 [facility] Administration Furosemide 20 mg 03/05/20 21:00 03/06/20 10:59 Lasix PO Not Given BID [facility] Hydralazine HCl 10 mg 02/28/20 22:16 03/06/20 14:40 Apresoline SLOW IVP 10 mg Q6H PRN Administration SBP GREATER THAN 160 Insulin Human Lispro 0 units 02/28/20 22:53 03/03/20 11:25 Humalog SC 3 unit .MILD SLIDING SCALE PRN Administration Mild Correctional Scale Lisinopril 2.5 mg 03/05/20 21:00 03/06/20 11:00 Zestril PO Not Given BID [facility] Morphine Sulfate 2 mg 02/28/20 22:16 03/05/20 00:12 Morphine SLOW IVP 2 mg Q4H PRN Administration severe pain 4-10 Ondansetron HCl 4 mg 02/28/20 22:16 03/04/20 23:35 Zofran IVP 4 mg Q6H PRN Administration Nausea/Vomiting use 1st Oxybutynin Chloride 5 mg 02/29/20 09:00 03/06/20 16:18 Ditropan PO 5 mg TID [facility] Administration Polyethylene Glycol 17 gm 02/29/20 09:00 03/06/20 11:00 Miralax PO Not Given DAILY [facility] Sodium Chloride 10 ml 03/06/20 09:00 03/06/20 08:55 Flush - Normal Saline IVF 10 ml Q12HR [facility] Administration Spironolactone 25 mg 03/06/20 08:00 03/06/20 10:59 Aldactone PO Not Given BID-[facility] - Exam Eye: PERRL, anicteric sclera Heart: RRR, no murmur, no gallops, no rubs, normal peripheral pulses Respiratory: CTAB, no wheezes, no rales, normal chest expansion Gastrointestinal: soft, non-tender, non-distended, normal bowel sounds, no palpable masses Extremities: 2+ LE edema (Edema in both upper and lower extremities) Hosp A/P (1) Anemia, macrocytic Code(s): D53.9 - NUTRITIONAL ANEMIA, UNSPECIFIED Status: Acute (2) Bradycardia Code(s): R00.1 - BRADYCARDIA, UNSPECIFIED Status: Acute (3) Nephrotic syndrome Code(s): N04.9 - NEPHROTIC SYNDROME WITH UNSPECIFIED MORPHOLOGIC CHANGES Status: Acute (4) Diabetes type 2, controlled Code(s): E11.9 - TYPE 2 DIABETES MELLITUS WITHOUT COMPLICATIONS Status: Chronic (5) Hypertension Code(s): I10 - ESSENTIAL (PRIMARY) HYPERTENSION Status: Chronic (6) Physical deconditioning Code(s): R53.81 - OTHER MALAISE Status: Chronic - Plan * Chronic nausea- ? etiology- will add IV Protonix, and check stool for occult blood * If this is present then re-consult GI * Nephrotic syndrome- renal biopsy was done today, and results pending * Bradycardia- work-up in progress * HTN- blood pressure is stable * DM- blood glucose is stable * Acute on chronic anemia- transfuse, and will check for occult blood in stool
[2020-03-06 17:09] LABS: A/G Ratio 0.8 (0.7-1.7); Albumin 1.6 g/dL (2.9-4.4); Alpha 1 0.2 g/dL (0.0-0.4); Alpha 2 0.6 g/dL (0.4-1.0); Beta 0.5 g/dL (0.7-1.3); Gamma 0.7 g/dL (0.4-1.8); M-Spike Not Observed g/dL (Not Observed)
--- NOTE | 2020-03-06 17:56 | PDOC.CPN ---
- Subjective Date: 03/06/20 Time: 17:51 Interval history: She is doing well. No syncope,. No other episodes of AV block. - Review of Systems General: denies: fever/chills, weight/appetite/sleep changes, night sweats, fatigue Respiratory: denies: cough, congestion, shortness of breath, exercise intolerance Cardiovascular: reports: edema. denies: chest pain, palpitation, paroxysmal nocturnal dyspnea, orthopnea Gastrointestinal: denies: nausea, vomiting, diarrhea, constipation, abd pain, GI bleeding Musculoskeletal: denies: pain, tenderness, stiffness, swelling, arthritis/ arthralgias Neurological: denies: numbness, syncope, seizure, weakness - Objective Allergies/Adverse Reactions: Allergies Allergy/AdvReac Type Severity Reaction Status Date / Time sulfamethoxazole Allergy Verified 02/28/20 22:41 Sulfa (Sulfonamide AdvReac Intermediate Nausea Verified 02/28/20 22:41 Antibiotics) Visit Medications: Current Medications Acetaminophen (Tylenol) 650 mg PO Q4H PRN PRN Reason: Headache/Fever/Mild Pain (1-3) Hydrocodone Bitart/Acetaminophen ([place] 5/325) 2 tab PO Q6H PRN PRN Reason: Moderate Pain (4-6) Last Admin: 03/06/20 11:23 Dose: 2 tab Albumin Human (Albumin 25%) 25 gm IVPB Q8H [facility] Stop: 03/06/20 23:01 Last Admin: 03/06/20 16:35 Dose: 25 gm Albuterol/Ipratropium (Duoneb) 3 ml NEB [id number] PRN PRN Reason: SOB &/or Wheezing Bacitracin (Bacitracin) 2 pk TOP BID [facility] Last Admin: 03/06/20 10:59 Dose: Not Given Cholecalciferol (Vitamin D) 400 units PO DAILY [facility]A Last Admin: 03/06/20 10:59 Dose: Not Given Dextrose/Water (Dextrose 50%) 25 gm SLOW IVP PRN PRN PRN Reason: Hypoglycemia Last Admin: 03/01/20 05:36 Dose: 25 gm Enoxaparin Sodium (Lovenox) 40 mg SC 0900 [facility]ORA Last Admin: 03/05/20 10:06 Dose: 40 mg Ergocalciferol (Drisdol) 1.25 mg PO Q7DAYS [facility] Furosemide (Lasix) 20 mg PO BID [facility] Last Admin: 03/06/20 10:59 Dose: Not Given Glucagon (Glucagon) 1 mg IM PRN PRN PRN Reason: Hypoglycemia Guaifenesin/Dextromethorphan (Robitussin Dm) 15 ml PO Q4H PRN PRN Reason: Cough Hydralazine HCl (Apresoline) 10 mg SLOW IVP Q6H PRN PRN Reason: SBP GREATER THAN 160 Last Admin: 03/06/20 14:40 Dose: 10 mg Dextrose/Water (D5w) 1,000 mls @ 0 mls/hr IV .Q0M PRN PRN Reason: Hypoglycemia Insulin Human Lispro (Humalog) 0 units SC .MILD SLIDING SCALE PRN PRN Reason: Mild Correctional Scale Last Admin: 03/03/20 11:25 Dose: 3 unit Lisinopril (Zestril) 2.5 mg PO BID [facility] Last Admin: 03/06/20 11:00 Dose: Not Given Morphine Sulfate (Morphine) 2 mg SLOW IVP Q4H PRN PRN Reason: severe pain 4-10 Last Admin: 03/05/20 00:12 Dose: 2 mg Ondansetron HCl (Zofran) 4 mg IVP Q6H PRN PRN Reason: Nausea/Vomiting use 1st Last Admin: 03/06/20 16:22 Dose: 4 mg Oxybutynin Chloride (Ditropan) 5 mg PO TID [facility] Last Admin: 03/06/20 16:18 Dose: 5 mg Pantoprazole Sodium (Protonix) 40 mg IVP Q12HR [facility] Polyethylene Glycol (Miralax) 17 gm PO DAILY [facility] Last Admin: 03/06/20 11:00 Dose: Not Given Sodium Chloride (Flush - Normal Saline) 10 ml IVF Q12HR [facility] Last Admin: 03/06/20 08:55 Dose: 10 ml Sodium Chloride (Flush - Normal Saline) 10 ml IVF PRN PRN PRN Reason: Saline Flush Sodium Chloride (Flush - Normal Saline) 10 ml IVF PRN PRN PRN Reason: Saline Flush Spironolactone (Aldactone) 25 mg PO BID[facility] Last Admin: 03/06/20 16:47 Dose: 25 mg Vital Signs & Weight: Vital Signs Temp Pulse Pulse Resp BP BP Pulse Ox 03/06/20 16:36 98.4 F 104 H 16 139/64 96 03/06/20 15:50 98.7 F 104 H 18 131/63 98 03/06/20 15:14 115/55 L 03/06/20 14:40 101 H 03/06/20 14:30 98.0 F 103 H 12 200/91 H 93 L 03/06/20 14:08 98.3 F 101 H 12 188/83 H 93 L 03/06/20 11:00 101 H 03/06/20 07:37 98.5 F 101 H 16 126/60 98 Admit Weight 136 lb 1.6 oz Weight 138 lb - Physical Exam General: alert & oriented x3 HEENT: mucus membranes moist Neck: supple neck Cardiac: regular rate and rhythm Lungs: clear to auscultation Neuro: grossly intact Abdomen: active bowel sounds Extremities: 2+ LE edema Skin: clear Musculoskeletal: no pain - Labs Result Diagrams: 03/06/20 04:40 03/06/20 04:40 Troponin/CKMB Troponin I 0.028 ng/mL (< 0.028) 02/28/20 17:38 - Telemetry Sinus rhythms and dysrhythmias: sinus rhythm - Assessment/Plan Assessment/Plan: 1. Chronic abdominal pain. 2. High degree AV block 3. Hx of syncope 4. Urinary retention, daily self catheterizations and UTI's in the past. 5. MSSA abscess drained form scalp 1 month ago. 6. Nephrotic range proteinuria 7. Splenic infarct. 8. Severe anemia PLAN: - Will need a PPM as soon as situation cleared and hgb stable. - Awaiting biopsy results. - Transfusions per primary team.
[2020-03-06] MEDS: Morphine 2 MG/ML SYRINGE SLOW IVP PRN (20:26)
[2020-03-06] MEDS: Pantoprazole 40 MG VIAL IVP SCH (20:27)
[2020-03-07] MEDS: hydrALAZINE 20 MG/ML VIAL SLOW IVP PRN ×2 (03:49→11:53)
[2020-03-07 04:36] LABS: Hemoglobin 7.2 g/dL (12.0-16.0)
[2020-03-07] MEDS: Morphine 2 MG/ML SYRINGE SLOW IVP PRN (04:57)
[2020-03-07] MEDS ORDERED: Lisinopril 2.5 MG TAB PO SCH (06:08)
[2020-03-07 06:56] LABS: Creatinine, Urine Less than 20.00 mg/dL (47-110)
[2020-03-07 07:24] LABS: Protein, Urine Random Quant 516 mg/dL (1-14)
[2020-03-07] MEDS: Ondansetron PF 4 MG/2 ML Vial IVP PRN (08:21)
[2020-03-07] MEDS: Oxybutynin 5 MG TAB PO SCH ×3 (08:22→20:41)
[2020-03-07] MEDS: Cholecalciferol (Vitamin D3) 400 UNITS TAB PO SCH (08:22)
[2020-03-07] MEDS: Spironolactone 25 MG TAB PO SCH ×2 (08:22→20:42)
[2020-03-07] MEDS: HYDROcodone/Acetaminophen 5/325 mg Tablet PO PRN ×3 (08:22→22:00)
[2020-03-07] MEDS: Enoxaparin Sodium 40 MG/0.4 ML SYRINGE SC SCH (08:22)
[2020-03-07] MEDS: Lisinopril 5 MG TAB PO SCH ×2 (08:23→20:41)
[2020-03-07] MEDS: Pantoprazole 40 MG VIAL IVP SCH ×2 (08:25→20:42)
[2020-03-07] MEDS: Furosemide 20 MG TAB PO SCH (08:25)
[2020-03-07] MEDS: Bacitracin 1 PK TOP SCH ×2 (08:26→21:59)
[2020-03-07] MEDS: Polyethylene Glycol 3350 17 GM Packet PO SCH (08:27)
[2020-03-07 09:19] LABS: Albumin 2.8 g/dL (3.5-5.0); Anion Gap 8 mmol/L (10-20); BUN (Urea Nitrogen) 25 mg/dL (9.8-20.1); BUN/Creatinine Ratio 32.89; Calc. Creatinine Clearance 78 mL/min (70-130); Calcium 7.8 mg/dL (7.8-10.44); Carbon Dioxide 23 mmol/L (22-29); Chloride 114 mmol/L (98-107); Estimated GFR-MDRD 78; Glucose 104 mg/dL (70-105); Potassium 4.4 mmol/L (3.5-5.1); Sodium 141 mmol/L (136-145)
[2020-03-07] MEDS ORDERED: Furosemide 20 MG TAB PO SCH (11:14)
--- NOTE | 2020-03-07 11:51 | PRG ---
DATE OF SERVICE: 03/07/2020 SERVICE: Nephrology. SUBJECTIVE: A 59-year-old female, seen in followup for nephrotic range proteinuria and volume overload. The patient reports feeling slightly better, but still having generalized weakness and poor appetite. Had kidney biopsy yesterday. No new problem. OBJECTIVE: VITAL SIGNS: Temperature 98.2, pulse 93, respiratory rate 17, SpO2 of 97% on room air, and blood pressure 161/70. I and O in the last 24 hours showed total intake of 566 with total output of 1800. GENERAL: Chronically ill-looking female, in no obvious distress. Afebrile. Anicteric. Acyanotic. HEENT: Normocephalic, atraumatic. Oral mucosa is moist. CARDIOVASCULAR: Regular rhythm and rate with normal heart sounds 1 and 2. RESPIRATORY: Fair air entry bilaterally with no obvious rhonchi or use of accessory muscles. GI: Flat, soft with diffuse mild tenderness. Bowel sound is normoactive. EXTREMITIES: Moderate edema of both upper extremities as well as [id number] edema of lower extremities noted. No erythema appreciated. AMBULANCE OFFICER: Conscious and alert and oriented x3 with appropriate mental status. Cranial nerves 2 through 12 are grossly intact. DIAGNOSTIC DATA: Hemoglobin and hematocrit today showed hemoglobin of 7.2 and hematocrit of 21.7. Chemistry showed sodium 141, potassium 4.4, chloride 114, CO2 of 23, BUN 25, creatinine 0.76, glucose 104, calcium 7.8, phosphorus 4.0, and albumin 2.8. ASSESSMENT: 1. Nephrotic range proteinuria. Etiology is unclear. Nephritic syndrome is a concern. The patient has components of nephrotic syndrome as evidenced by fluid overload, hypoalbuminemia, and nephrotic range proteinuria. 2. Volume overload: Due to hypoalbuminemia and chronic illness. Despite generalized edema, the patient is acting as if she is intravascularly contracted. 3. Metabolic acidosis, mostly hyperchloremic in nature. 4. Anemia: Due to anemia of chronic illness. 5. Hypertension: Control is suboptimal. 6. Protein-calorie malnutrition. PLAN: 1. We will increase lisinopril to 5 mg b.i.d. from 2.5 b.i.d. We will also increase Lasix from 20 b.i.d. to 40 b.i.d. Spironolactone also will be increased from 25 b.i.d. to 50 b.i.d. 2. We will also provide albumin infusion x2 doses today to help mobilize interstitial fluid. 3. Renal biopsy result is awaited. 4. Nutritional rehabilitation is recommended. 5. We will monitor intake and output as well as renal function and electrolyte given commencement of GABRIELA inhibitor and spironolactone as well as diuretic therapy. 6. Further treatment to follow depending on hospital course. Job ID: [id number]
[2020-03-07] MEDS: Albumin 25% 25 GM/100 ML BOT IVPB SCH ×2 (11:54→20:41)
--- NOTE | 2020-03-07 13:06 | PDOC.CPN ---
- Subjective Date: 03/07/20 Time: 13:06 Interval history: No new issues. - Review of Systems General: denies: fever/chills, weight/appetite/sleep changes, night sweats, fatigue Respiratory: denies: cough, congestion, shortness of breath, exercise intolerance Cardiovascular: denies: chest pain, palpitation, edema, paroxysmal nocturnal dyspnea, orthopnea Gastrointestinal: denies: nausea, vomiting, diarrhea, constipation, abd pain, GI bleeding Musculoskeletal: denies: pain, tenderness, stiffness, swelling, arthritis/ arthralgias Neurological: denies: numbness, syncope, seizure, weakness - Objective Allergies/Adverse Reactions: Allergies Allergy/AdvReac Type Severity Reaction Status Date / Time sulfamethoxazole Allergy Verified 02/28/20 22:41 Sulfa (Sulfonamide AdvReac Intermediate Nausea Verified 02/28/20 22:41 Antibiotics) Visit Medications: Current Medications Acetaminophen (Tylenol) 650 mg PO Q4H PRN PRN Reason: Headache/Fever/Mild Pain (1-3) Hydrocodone Bitart/Acetaminophen ([place] 5/325) 2 tab PO Q6H PRN PRN Reason: Moderate Pain (4-6) Last Admin: 03/07/20 08:22 Dose: 2 tab Albumin Human (Albumin 25%) 25 gm IVPB Q8H [facility] Stop: 03/07/20 20:01 Last Admin: 03/07/20 11:54 Dose: 25 gm Albuterol/Ipratropium (Duoneb) 3 ml NEB [id number] PRN PRN Reason: SOB &/or Wheezing Bacitracin (Bacitracin) 2 pk TOP BID [facility] Last Admin: 03/07/20 08:26 Dose: 2 pk Cholecalciferol (Vitamin D) 400 units PO DAILY [facility] Last Admin: 03/07/20 08:22 Dose: 400 units Dextrose/Water (Dextrose 50%) 25 gm SLOW IVP PRN PRN PRN Reason: Hypoglycemia Last Admin: 03/01/20 05:36 Dose: 25 gm Enoxaparin Sodium (Lovenox) 40 mg SC 0900 [facility] Last Admin: 03/07/20 08:22 Dose: 40 mg Ergocalciferol (Drisdol) 1.25 mg PO Q7DAYS [facility] Furosemide (Lasix) 40 mg PO 0900,1400 [facility]ORA Glucagon (Glucagon) 1 mg IM PRN PRN PRN Reason: Hypoglycemia Guaifenesin/Dextromethorphan (Robitussin Dm) 15 ml PO Q4H PRN PRN Reason: Cough Hydralazine HCl (Apresoline) 10 mg SLOW IVP Q6H PRN PRN Reason: SBP GREATER THAN 160 Last Admin: 03/07/20 11:53 Dose: 10 mg Dextrose/Water (D5w) 1,000 mls @ 0 mls/hr IV .Q0M PRN PRN Reason: Hypoglycemia Insulin Human Lispro (Humalog) 0 units SC .MILD SLIDING SCALE PRN PRN Reason: Mild Correctional Scale Last Admin: 03/03/20 11:25 Dose: 3 unit Lisinopril (Zestril) 5 mg PO BID [facility] Last Admin: 03/07/20 08:23 Dose: 5 mg Morphine Sulfate (Morphine) 2 mg SLOW IVP Q4H PRN PRN Reason: severe pain 4-10 Last Admin: 03/07/20 04:57 Dose: 2 mg Ondansetron HCl (Zofran) 4 mg IVP Q6H PRN PRN Reason: Nausea/Vomiting use 1st Last Admin: 03/07/20 08:21 Dose: 4 mg Oxybutynin Chloride (Ditropan) 5 mg PO TID [facility] Last Admin: 03/07/20 08:22 Dose: 5 mg Pantoprazole Sodium (Protonix) 40 mg IVP Q12HR [facility] Last Admin: 03/07/20 08:25 Dose: 40 mg Polyethylene Glycol (Miralax) 17 gm PO DAILY [facility] Last Admin: 03/07/20 08:27 Dose: Not Given Sodium Chloride (Flush - Normal Saline) 10 ml IVF Q12HR [facility] Last Admin: 03/07/20 08:27 Dose: 10 ml Sodium Chloride (Flush - Normal Saline) 10 ml IVF PRN PRN PRN Reason: Saline Flush Last Admin: 03/06/20 20:29 Dose: 10 ml Sodium Chloride (Flush - Normal Saline) 10 ml IVF PRN PRN PRN Reason: Saline Flush Spironolactone (Aldactone) 50 mg PO BID [facility] Vital Signs & Weight: Vital Signs Temp Pulse Resp BP BP Pulse Ox 03/07/20 11:53 101 H 183/83 H 03/07/20 11:40 97.6 F 101 H 13 183/83 H 97 06/09/20 08:23 101 H 169/73 H 03/07/20 07:37 98.2 F 93 17 161/70 H 97 03/07/20 03:49 95 166/72 H 03/07/20 03:30 98.3 F 95 20 166/72 H 94 L Admit Weight 136 lb 1.6 oz Weight 138 lb - Physical Exam General: alert & oriented x3 HEENT: mucus membranes moist Neck: supple neck Cardiac: regular rate and rhythm Lungs: clear to auscultation Neuro: grossly intact Abdomen: active bowel sounds Extremities: 2+ LE edema Skin: clear Musculoskeletal: no pain - Labs Result Diagrams: 03/07/20 04:10 03/07/20 08:58 Troponin/CKMB Troponin I 0.028 ng/mL (< 0.028) 02/28/20 17:38 - Telemetry Sinus rhythms and dysrhythmias: sinus rhythm - Assessment/Plan Assessment/Plan: 1. Chronic abdominal pain. 2. High degree AV block 3. Hx of syncope 4. Urinary retention, daily self catheterizations and UTI's in the past. 5. MSSA abscess drained form scalp 1 month ago. 6. Nephrotic range proteinuria 7. Splenic infarct. 8. Severe anemia PLAN: - Will need a PPM as soon as situation cleared and hgb stable. She is still not sure if she wants a pacemaker. She is aware of the possibility iof another syncopal spell. She will continue to think about this and discuss with . - Awaiting biopsy results. - Transfusions per primary team.
[2020-03-07] MEDS ORDERED: Furosemide 40 MG TAB PO SCH (14:00)
--- NOTE | 2020-03-07 16:48 | PDOC.HOSPP ---
- Subjective Encounter Date: 03/07/20 Encounter Time: 16:46 Subjective: Ms. Sal was seen today in follow-up of abdominal pain and nausea, and proteinuria and anemia. She says the nausea was a little better today, but she continues to have diffuse abdominal pain. - Objective Vital Signs & Weight: Vital Signs (12 hours) Temp Pulse Resp BP BP Pulse Ox 03/07/20 15:23 97.9 F 91 15 154/66 H 98 03/07/20 13:20 117/55 L 03/07/20 11:53 101 H 183/83 H 03/07/20 11:40 97.6 F 101 H 13 183/83 H 97 03/07/20 08:23 101 H 169/73 H 03/07/20 07:37 98.2 F 93 17 161/70 H 97 Weight Admit Weight 136 lb 1.6 oz Weight 138 lb Most Recent Monitor Data Heart Rate from ECG 105 NIBP 125/49 NIBP BP-Mean 74 Respiration from ECG 20 SpO2 93 I&O: 03/06/20 03/07/20 03/08/20 06:59 06:59 06:59 Intake Total 581 566 Output Total 1190 1800 Balance -448 -2373 Result Diagrams: 03/07/20 04:10 03/07/20 08:58 Additional Labs: Accuchecks 03/07/20 03/07/20 03/06/20 10:48 05:23 21:42 POC Glucose 107 109 107 Hospitalist ROS - Medication Medications: Active Medications Generic Name Dose Route Start Last Admin Trade Name Freq PRN Reason Stop Dose Admin Hydrocodone Bitart/Acetaminophen 2 tab 03/02/20 14:21 03/07/20 16:00 [place] 5/325 PO 2 tab Q6H PRN Administration Moderate Pain (4-6) Albumin Human 25 gm 03/07/20 12:00 03/07/20 11:54 Albumin 25% IVPB 03/07/20 20:01 25 gm Q8H [facility]ORA Administration Bacitracin 2 pk 02/29/20 21:00 03/07/20 08:26 Bacitracin TOP 2 pk BID [facility]ORA Administration Cholecalciferol 400 units 03/06/20 09:00 03/07/20 08:22 Vitamin D PO 400 units DAILY [facility]ORA Administration Dextrose/Water 25 gm 02/28/20 22:53 03/01/20 05:36 Dextrose 50% SLOW IVP 25 gm PRN PRN Administration Hypoglycemia Enoxaparin Sodium 40 mg 02/29/20 09:00 03/07/20 08:22 Lovenox SC 40 mg 0900 DEVORA Administration Furosemide 40 mg 03/07/20 14:00 03/07/20 14:22 Lasix PO 40 mg 0900,1400 DEVORA Administration Hydralazine HCl 10 mg 02/28/20 22:16 03/07/20 11:53 Apresoline SLOW IVP 10 mg Q6H PRN Administration SBP GREATER THAN 160 Insulin Human Lispro 0 units 02/28/20 22:53 03/03/20 11:25 Humalog SC 3 unit .MILD SLIDING SCALE PRN Administration Mild Correctional Scale Lisinopril 5 mg 03/07/20 09:00 03/07/20 08:23 Zestril PO 5 mg BID [facility]A Administration Morphine Sulfate 2 mg 02/28/20 22:16 03/07/20 04:57 Morphine SLOW IVP 2 mg Q4H PRN Administration severe pain 4-10 Ondansetron HCl 4 mg 02/28/20 22:16 03/07/20 08:21 Zofran IVP 4 mg Q6H PRN Administration Nausea/Vomiting use 1st Oxybutynin Chloride 5 mg 02/29/20 09:00 03/07/20 14:22 Ditropan PO 5 mg TID [facility]ORA Administration Pantoprazole Sodium 40 mg 03/06/20 21:00 03/07/20 08:25 Protonix IVP 40 mg Q12HR [facility] Administration Polyethylene Glycol 17 gm 02/29/20 09:00 03/07/20 08:27 Miralax PO Not Given DAILY [facility]ORA Sodium Chloride 10 ml 03/06/20 09:00 03/07/20 08:27 Flush - Normal Saline IVF 10 ml Q12HR [facility] Administration Sodium Chloride 10 ml 03/06/20 06:58 03/06/20 20:29 Flush - Normal Saline IVF 10 ml PRN PRN Administration Saline Flush - Exam Eye: PERRL, anicteric sclera Heart: RRR, no murmur, no gallops, no rubs, normal peripheral pulses Respiratory: CTAB, no wheezes, no rales, no ronchi Gastrointestinal: soft (+ diffuse abdominal tenderness, no rebound or guarding) Extremities: no cyanosis, no clubbing (+ lalit anasarca), 2+ LE edema Hosp A/P (1) Anemia, macrocytic Code(s): D53.9 - NUTRITIONAL ANEMIA, UNSPECIFIED Status: Acute (2) Bradycardia Code(s): R00.1 - BRADYCARDIA, UNSPECIFIED Status: Acute (3) Nephrotic syndrome Code(s): N04.9 - NEPHROTIC SYNDROME WITH UNSPECIFIED MORPHOLOGIC CHANGES Status: Acute (4) Diabetes type 2, controlled Code(s): E11.9 - TYPE 2 DIABETES MELLITUS WITHOUT COMPLICATIONS Status: Chronic (5) Hypertension Code(s): I10 - ESSENTIAL (PRIMARY) HYPERTENSION Status: Chronic (6) Physical deconditioning Code(s): R53.81 - OTHER MALAISE Status: Chronic - Plan * Chronic nausea- ? etiology- continue IV Protonix * Stool for Occult blood was negative * Nephrotic syndrome- await renal biopsy results- continue Lisinopril * Bradycardia- work-up in progress * HTN- blood pressure is a bit labile- will monitor * DM- blood glucose is stable * Acute on chronic anemia- will monitor
[2020-03-07] MEDS ORDERED: Bacitracin 1 PK TOP SCH (21:30)
[2020-03-08] MEDS: Morphine 2 MG/ML SYRINGE SLOW IVP PRN ×2 (00:01→17:56)
[2020-03-08] MEDS: hydrALAZINE 20 MG/ML VIAL SLOW IVP PRN ×2 (01:50→18:04)
[2020-03-08 04:46] LABS: Albumin 3.1 g/dL (3.5-5.0); Anion Gap 8 mmol/L (10-20); BUN (Urea Nitrogen) 22 mg/dL (9.8-20.1); Calc. Creatinine Clearance 74 mL/min (70-130); Calcium 8.2 mg/dL (7.8-10.44); Carbon Dioxide 26 mmol/L (22-29); Chloride 110 mmol/L (98-107); Estimated GFR-MDRD 73; Glucose 94 mg/dL (70-105); Phosphorus 4.1 mg/dL (2.3-4.7); Potassium 4.4 mmol/L (3.5-5.1); Sodium 140 mmol/L (136-145)
[2020-03-08] MEDS: HYDROcodone/Acetaminophen 5/325 mg Tablet PO PRN ×3 (06:15→23:03)
--- NOTE | 2020-03-08 08:25 | PRG ---
DATE OF SERVICE: 03/08/2020 SERVICE: Nephrology. SUBJECTIVE: A 59-year-old female seen in followup for nephrotic range proteinuria associated with anasarca. The patient reports feeling stronger. Swelling also has improved. Denied any new complaint. OBJECTIVE: VITAL SIGNS: Temperature 99.8, pulse 102, respiratory rate 20, SpO2 of 95% on room air, blood pressure is 149/68. I and O in the last 24 hours showed total intake of 390 with total output of 2850. GENERAL: Chronically ill-looking female, in no obvious distress. Afebrile. Anicteric. Acyanotic. HEENT: Normocephalic. Right parietofrontal scalp dressing noted. Oral mucosa is moist. CARDIOVASCULAR: Regular rhythm and rate, but tachycardic. RESPIRATORY: Fair air entry bilateral with few transmitted breath sounds, but no obvious rhonchi or use of accessory muscles. GI: Flat, soft, nondistended, nontender with normal bowel sounds. UROGENITAL: Pulido catheter is in place draining some urine. EXTREMITIES: [id number] edema of upper limbs noted. Moderate bilateral lower extremity edema noted. 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 Cranial nerves 2 through 12 are grossly intact. The patient moves all extremities, but weakly. DIAGNOSTIC DATA: Chemistry today showed sodium 140, potassium 4.4, chloride 110, CO2 of 26, BUN 22, creatinine 0.80, glucose 94, calcium 8.2, phosphorus 4.1, albumin 3.1. Preliminary renal ultrasound showed nodular diabetic glomerulosclerosis RPS class III with mild glomerular IgA and C3 deposits. The preponderance of codominant IgA and C3 deposit is suspicious for mild and resolving infectious associated glomerulonephritis. ASSESSMENT: 1. 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 2. Anasarca due to hypoalbuminemia. 3. Anemia: Multifactorial due to chronic illness as well as chronic kidney disease. 4. Hypertension: Control is suboptimal. 5. Tachy-reji syndrome. Cardiology following. 6. Protein-calorie malnutrition. PLAN: 1. We will increase lisinopril to 20 mg p.o. b.i.d. 2. We will continue Lasix 40 mg p.o. as well as spironolactone 50 mg p.o. b.i.d. for volume management. 3. We will monitor renal function in view of GABRIELA inhibitor escalation to rule out acute kidney injury. 4. Nutritional rehabilitation recommended. 5. We will continue to monitor oral intake, urine output as well as weight and renal function. 6. Further treatment to follow depending on hospital course. Job ID: [id number]
[2020-03-08] MEDS: Cholecalciferol (Vitamin D3) 400 UNITS TAB PO SCH (08:54)
[2020-03-08] MEDS: Enoxaparin Sodium 40 MG/0.4 ML SYRINGE SC SCH (08:54)
[2020-03-08] MEDS: Bacitracin 1 PK TOP SCH ×2 (08:54→21:04)
[2020-03-08] MEDS: Pantoprazole 40 MG VIAL IVP SCH ×2 (08:54→21:06)
[2020-03-08] MEDS: Oxybutynin 5 MG TAB PO SCH ×3 (08:55→21:06)
[2020-03-08] MEDS: Furosemide 40 MG TAB PO SCH ×2 (08:55→21:04)
[2020-03-08] MEDS: Lisinopril 20 MG TAB PO SCH ×2 (08:56→21:04)
[2020-03-08] MEDS: Spironolactone 25 MG TAB PO SCH ×2 (08:56→21:06)
[2020-03-08] MEDS: Polyethylene Glycol 3350 17 GM Packet PO SCH (10:15)
[2020-03-08] MEDS ORDERED: Polyethylene Glycol 3350 17 GM Packet PO SCH (10:30)
[2020-03-08 12:22] LABS: #Basophils 0.1 thou/uL (0.0-0.2); #Eosinphils 0.3 thou/uL (0.0-0.7); #Lymphocytes 1.1 thou/uL (1.20-3.40); #Monocytes 0.5 thou/uL (0.11-0.59); #Neutrophils 5.8 thou/uL (1.40-6.50); %Basophils 0.9 % (0.0-1.0); %Eosinophils 3.5 % (0.0-10.0); %Lymphocytes 14.1 % (21.0-51.0); %Neutrophils 75.5 % (42.0-75.0); Hemoglobin 7.8 g/dL (12.0-16.0); Mean Corpuscular HGB CONC 32.3 g/dL (32.0-36.0); Mean Corpuscular Hemoglobin 33.8 pg (27.0-31.0); Mean Platelet Volume 6.1 fL (7.4-10.4); Platelet Count 337 thou/uL (130-400); RBC Distribution Width 14.6 % (11.5-14.5); White Blood Cell (WBC) Count 7.7 thou/uL (4.8-10.8)
[2020-03-08 12:38] LABS: Kappa Lambda Light Chain Ratio 1.31 (0.26-1.65); Kappa Light Chains 47.5 mg/L (3.3-19.4); Lambda Light Chain 36.2 mg/L (5.7-26.3)
[2020-03-08 14:36] VITALS: BMI 25.2
--- NOTE | 2020-03-08 14:49 | CT ---
Renal biopsy random CT-guided HISTORY: Nephrotic proteinuria. FINDINGS: After explaining the procedure and answering all questions, limited CT imaging of the abdom en was performed. Sterile technique, buffered local anesthesia, CT guidance, and a right posterior approach were used to carefully advance a 17-gauge trocar needle to the hypovascular zone near the in ferior pole of the right kidney. Oblique presentation was planned to maximize acquisition of glomeruli. A total of 2 18-gauge core biopsy specimens were obtained and submitted to Dr. Gonzalez from pathology. Postprocedure imaging after needle removal showed small amount of retroperitoneal blood. Patient tolerated the procedure well and was returned in unchanged condition. IMPRESSION : Technically successful CT-guided random renal biopsy. Transcribed Date/Time: 03/08/2020 2:49 PM
[2020-03-08] MEDS ORDERED: hydrOXYzine 10 MG TAB PO PRN (15:56)
--- NOTE | 2020-03-08 15:59 | PDOC.HOSPP ---
- Subjective Encounter Date: 03/08/20 Encounter Time: 15:57 Subjective: Ms. Sal was seen today in follow-up of abdominal pain, and generalized malaise, and bradycardia. She says the nausea has improved. She had eaten about 75% of her meals after liberalizing her diet. - Objective Vital Signs & Weight: Vital Signs (12 hours) Temp Pulse Resp BP BP Pulse Ox 03/08/20 15:30 98.9 F 93 16 162/73 H 95 03/08/20 12:05 98.3 F 96 16 173/74 H 95 03/08/20 08:56 171/77 H 03/08/20 07:46 98.4 F 97 16 153/79 H 92 L 03/08/20 06:15 98.2 F 03/08/20 05:34 99.8 F H 102 H 20 149/68 H 95 Weight Admit Weight 136 lb 1.6 oz Weight 138 lb Most Recent Monitor Data Heart Rate from ECG 105 NIBP 125/49 NIBP BP-Mean 74 Respiration from ECG 20 SpO2 93 I&O: 03/07/20 03/08/20 03/09/20 06:59 06:59 06:59 Intake Total 566 390 Output Total 1800 2850 Balance -9194 -7312 Result Diagrams: 03/08/20 12:14 03/08/20 04:20 Additional Labs: Accuchecks 03/08/20 03/08/20 03/07/20 10:48 05:40 19:21 POC Glucose 143 H 98 117 H 03/07/20 16:42 POC Glucose 120 H Hospitalist ROS - Medication Medications: Active Medications Generic Name Dose Route Start Last Admin Trade Name Freq PRN Reason Stop Dose Admin Hydrocodone Bitart/Acetaminophen 2 tab 03/02/20 14:21 03/08/20 12:51 [place] 5/325 PO 2 tab Q6H PRN Administration Moderate Pain (4-6) Bacitracin 2 pk 03/08/20 09:00 03/08/20 08:54 Bacitracin TOP 2 pk BID DEVORA Administration Cholecalciferol 400 units 03/06/20 09:00 03/08/20 08:54 Vitamin D PO 400 units DAILY DEVORA Administration Dextrose/Water 25 gm 02/28/20 22:53 03/01/20 05:36 Dextrose 50% SLOW IVP 25 gm PRN PRN Administration Hypoglycemia Enoxaparin Sodium 40 mg 02/29/20 09:00 03/08/20 08:54 Lovenox SC 40 mg 0900 DEVORA Administration Furosemide 40 mg 03/08/20 09:00 03/08/20 08:55 Lasix PO 40 mg BID DEVORA Administration Hydralazine HCl 10 mg 02/28/20 22:16 03/08/20 01:50 Apresoline SLOW IVP 10 mg Q6H PRN Administration SBP GREATER THAN 160 Insulin Human Lispro 0 units 02/28/20 22:53 03/03/20 11:25 Humalog SC 3 unit .MILD SLIDING SCALE PRN Administration Mild Correctional Scale Lisinopril 20 mg 03/08/20 05:26 03/08/20 08:56 Zestril PO 20 mg BID DEVORA Administration Morphine Sulfate 2 mg 02/28/20 22:16 03/08/20 00:01 Morphine SLOW IVP 2 mg Q4H PRN Administration severe pain 4-10 Ondansetron HCl 4 mg 02/28/20 22:16 03/07/20 08:21 Zofran IVP 4 mg Q6H PRN Administration Nausea/Vomiting use 1st Oxybutynin Chloride 5 mg 02/29/20 09:00 03/08/20 14:02 Ditropan PO 5 mg TID DEVORA Administration Pantoprazole Sodium 40 mg 03/06/20 21:00 03/08/20 08:54 Protonix IVP 40 mg Q12HR DEVORA Administration Sodium Chloride 10 ml 03/06/20 09:00 03/08/20 08:56 Flush - Normal Saline IVF 10 ml Q12HR DEVORA Administration Sodium Chloride 10 ml 03/06/20 06:58 03/06/20 20:29 Flush - Normal Saline IVF 10 ml PRN PRN Administration Saline Flush Spironolactone 50 mg 03/07/20 21:00 03/08/20 08:56 Aldactone PO 50 mg BID DEVORA Administration - Exam Eye: PERRL Heart: RRR, no murmur, no gallops, no rubs, normal peripheral pulses Respiratory: CTAB (+ decreased breath sounds at the bases) Gastrointestinal: soft, non-tender, non-distended, normal bowel sounds, no palpable masses Extremities: 2+ LE edema (+ edema in both upper and lower extremities, but decreasing) Hosp A/P (1) Anemia, macrocytic Code(s): D53.9 - NUTRITIONAL ANEMIA, UNSPECIFIED Status: Acute (2) Bradycardia Code(s): R00.1 - BRADYCARDIA, UNSPECIFIED Status: Acute (3) Nephrotic syndrome Code(s): N04.9 - NEPHROTIC SYNDROME WITH UNSPECIFIED MORPHOLOGIC CHANGES Status: Acute (4) Diabetes type 2, controlled Code(s): E11.9 - TYPE 2 DIABETES MELLITUS WITHOUT COMPLICATIONS Status: Chronic (5) Hypertension Code(s): I10 - ESSENTIAL (PRIMARY) HYPERTENSION Status: Chronic (6) Physical deconditioning Code(s): R53.81 - OTHER MALAISE Status: Chronic - Plan * Chronic nausea- ? etiology- this seems to have improved some- continue IV Protonix * Nephrotic syndrome-renal biopsy results noted. 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 Lisinopril has been increased, and agree with optimization of her nutritional status. * Bradycardia- work-up in progress * HTN- blood pressure is a bit labile- Lisinopril dose has been increased * DM- blood glucose is stable * Acute on chronic anemia-she has had a work-up in the past, and this was most consistent with anemia of chronic disease, as well as nutritional deficiencies. Transfuse as needed
--- NOTE | 2020-03-08 16:16 | PDOC.CPN ---
- Subjective Date: 03/08/20 Time: 16:12 Interval history: No new issues. - Review of Systems General: denies: fever/chills, weight/appetite/sleep changes, night sweats, fatigue Respiratory: denies: cough, congestion, shortness of breath, exercise intolerance Cardiovascular: reports: edema. denies: chest pain, palpitation, paroxysmal nocturnal dyspnea, orthopnea Gastrointestinal: denies: nausea, vomiting, diarrhea, constipation, abd pain, GI bleeding Musculoskeletal: denies: pain, tenderness, stiffness, swelling, arthritis/ arthralgias Neurological: denies: numbness, syncope, seizure, weakness - Objective Allergies/Adverse Reactions: Allergies Allergy/AdvReac Type Severity Reaction Status Date / Time sulfamethoxazole Allergy Verified 02/28/20 22:41 Sulfa (Sulfonamide AdvReac Intermediate Nausea Verified 02/28/20 22:41 Antibiotics) Visit Medications: Current Medications Acetaminophen (Tylenol) 650 mg PO Q4H PRN PRN Reason: Headache/Fever/Mild Pain (1-3) Hydrocodone Bitart/Acetaminophen ([place] 5/325) 2 tab PO Q6H PRN PRN Reason: Moderate Pain (4-6) Last Admin: 03/08/20 12:51 Dose: 2 tab Albuterol/Ipratropium (Duoneb) 3 ml NEB Q2TB-TO PRN PRN Reason: SOB &/or Wheezing Bacitracin (Bacitracin) 2 pk TOP BID [facility] Last Admin: 03/08/20 08:54 Dose: 2 pk Cholecalciferol (Vitamin D) 400 units PO DAILY [facility] Last Admin: 03/08/20 08:54 Dose: 400 units Dextrose/Water (Dextrose 50%) 25 gm SLOW IVP PRN PRN PRN Reason: Hypoglycemia Last Admin: 03/01/20 05:36 Dose: 25 gm Enoxaparin Sodium (Lovenox) 40 mg SC 0900 [facility] Last Admin: 03/08/20 08:54 Dose: 40 mg Ergocalciferol (Drisdol) 1.25 mg PO Q7DAYS [facility] Furosemide (Lasix) 40 mg PO BID [facility] Last Admin: 03/08/20 08:55 Dose: 40 mg Glucagon (Glucagon) 1 mg IM PRN PRN PRN Reason: Hypoglycemia Guaifenesin/Dextromethorphan (Robitussin Dm) 15 ml PO Q4H PRN PRN Reason: Cough Hydralazine HCl (Apresoline) 10 mg SLOW IVP Q6H PRN PRN Reason: SBP GREATER THAN 160 Last Admin: 03/08/20 01:50 Dose: 10 mg Hydroxyzine HCl (Atarax) 10 mg PO Q6H PRN PRN Reason: Itching Dextrose/Water (D5w) 1,000 mls @ 0 mls/hr IV .Q0M PRN PRN Reason: Hypoglycemia Insulin Human Lispro (Humalog) 0 units SC .MILD SLIDING SCALE PRN PRN Reason: Mild Correctional Scale Last Admin: 03/03/20 11:25 Dose: 3 unit Lisinopril (Zestril) 20 mg PO BID [facility] Last Admin: 03/08/20 08:56 Dose: 20 mg Morphine Sulfate (Morphine) 2 mg SLOW IVP Q4H PRN PRN Reason: severe pain 4-10 Last Admin: 03/08/20 00:01 Dose: 2 mg Multivitamins (Theragran) 1 tab PO DAILY [facility] Ondansetron HCl (Zofran) 4 mg IVP Q6H PRN PRN Reason: Nausea/Vomiting use 1st Last Admin: 03/07/20 08:21 Dose: 4 mg Oxybutynin Chloride (Ditropan) 5 mg PO TID [facility] Last Admin: 03/08/20 14:02 Dose: 5 mg Pantoprazole Sodium (Protonix) 40 mg IVP Q12HR [facility] Last Admin: 03/08/20 08:54 Dose: 40 mg Polyethylene Glycol (Miralax) 17 gm PO DAILY [facility] Sodium Chloride (Flush - Normal Saline) 10 ml IVF Q12HR [facility] Last Admin: 03/08/20 08:56 Dose: 10 ml Sodium Chloride (Flush - Normal Saline) 10 ml IVF PRN PRN PRN Reason: Saline Flush Last Admin: 03/06/20 20:29 Dose: 10 ml Sodium Chloride (Flush - Normal Saline) 10 ml IVF PRN PRN PRN Reason: Saline Flush Spironolactone (Aldactone) 50 mg PO BID [facility] Last Admin: 03/08/20 08:56 Dose: 50 mg Vital Signs & Weight: Vital Signs Temp Pulse Pulse Pulse Resp BP BP 03/08/20 15:30 98.9 F 93 16 03/08/20 15:00 102 H 102 H 162/73 H 03/08/20 12:05 98.3 F 96 16 03/08/20 08:56 171/77 H 03/08/20 07:46 98.4 F 97 16 03/08/20 06:15 98.2 F 03/08/20 05:34 99.8 F H 102 H 20 BP BP Pulse Ox 03/08/20 15:30 162/73 H 95 03/08/20 15:00 163/73 H 03/08/20 12:05 173/74 H 95 03/08/20 08:56 03/08/20 07:46 153/79 H 92 L 03/08/20 06:15 03/08/20 05:34 149/68 H 95 Admit Weight 136 lb 1.6 oz Weight 138 lb - Physical Exam General: alert & oriented x3 HEENT: mucus membranes moist Neck: supple neck Cardiac: regular rate and rhythm Lungs: clear to auscultation Neuro: grossly intact Abdomen: active bowel sounds Extremities: 2+ LE edema Skin: clear Musculoskeletal: no pain - Labs Result Diagrams: 03/08/20 12:14 03/08/20 04:20 Troponin/CKMB Troponin I 0.028 ng/mL (< 0.028) 02/28/20 17:38 - Telemetry Sinus rhythms and dysrhythmias: sinus rhythm - Assessment/Plan Assessment/Plan: 1. Chronic abdominal pain. 2. High degree AV block 3. Hx of syncope 4. Urinary retention, daily self catheterizations and UTI's in the past. 5. MSSA abscess drained form scalp 1 month ago. 6. Nephrotic range proteinuria 7. Splenic infarct. 8. Severe anemia PLAN: - Likely nephrotic syndrome related to recent Staph infection. - Will await likely a month for her scalp wound to completely heal before placing a PPM. - Will need a 30 day monitor on discharge which I will arrange.
[2020-03-08 17:09] LABS: Albumin, PEP 24hr Ur 44.8 % (NOT ESTAB.); Alpha-1-Globulin, PEP 24h Ur 7.3 % (NOT ESTAB.); Alpha-2-Globulin, PEP 24h Ur 14.5 % (NOT ESTAB.); Gamma Globulin, PEP 24h Ur 15.3 % (NOT ESTAB.); M-Spike,% PEP 24hr Ur Not Observed % (Not Observed); Protein, Urine 214.5 mg/dL (Not Estab.)
[2020-03-09 05:52] LABS: #Basophils 0.1 thou/uL (0.0-0.2); #Eosinphils 0.2 thou/uL (0.0-0.7); #Lymphocytes 1.5 thou/uL (1.20-3.40); #Monocytes 0.6 thou/uL (0.11-0.59); #Neutrophils 5.4 thou/uL (1.40-6.50); %Basophils 0.8 % (0.0-1.0); %Eosinophils 3.1 % (0.0-10.0); %Lymphocytes 19.2 % (21.0-51.0); %Neutrophils 68.8 % (42.0-75.0); Mean Corpuscular HGB CONC 32.1 g/dL (32.0-36.0); Mean Corpuscular Hemoglobin 33.4 pg (27.0-31.0); Mean Platelet Volume 6.3 fL (7.4-10.4); Platelet Count 345 thou/uL (130-400); RBC Distribution Width 14.4 % (11.5-14.5); Red Blood Cell (RBC) Count 2.38 mill/uL (4.20-5.40); White Blood Cell (WBC) Count 7.9 thou/uL (4.8-10.8)
[2020-03-09 06:14] LABS: Albumin 2.6 g/dL (3.5-5.0); Anion Gap 8 mmol/L (10-20); BUN (Urea Nitrogen) 26 mg/dL (9.8-20.1); BUN/Creatinine Ratio 28.57; Calc. Creatinine Clearance 65 mL/min (70-130); Carbon Dioxide 30 mmol/L (22-29); Chloride 108 mmol/L (98-107); Estimated GFR-MDRD 63; Glucose 106 mg/dL (70-105); Phosphorus 4.5 mg/dL (2.3-4.7); Potassium 4.8 mmol/L (3.5-5.1); Sodium 141 mmol/L (136-145)
[2020-03-09] MEDS ORDERED: Lisinopril 20 MG TAB PO SCH (09:00)
[2020-03-09] MEDS ORDERED: Multivit, Therapeutic 1 TAB PO SCH (09:00)
[2020-03-09] MEDS ORDERED: Polyethylene Glycol 3350 17 GM Packet PO SCH (09:00)
[2020-03-09] MEDS ORDERED: Furosemide 40 MG TAB PO SCH (09:00)
[2020-03-09] MEDS ORDERED: Spironolactone 25 MG TAB PO SCH (09:00)
[2020-03-09] MEDS: Cholecalciferol (Vitamin D3) 400 UNITS TAB PO SCH (09:07)
[2020-03-09] MEDS: Oxybutynin 5 MG TAB PO SCH ×2 (09:07→15:32)
[2020-03-09] MEDS: Bacitracin 1 PK TOP SCH (09:08)
[2020-03-09] MEDS: Enoxaparin Sodium 40 MG/0.4 ML SYRINGE SC SCH (09:08)
[2020-03-09] MEDS: Pantoprazole 40 MG VIAL IVP SCH (09:09)
[2020-03-09] MEDS: HYDROcodone/Acetaminophen 5/325 mg Tablet PO PRN ×2 (09:29→15:32)
[2020-03-09] MEDS: hydrALAZINE 20 MG/ML VIAL SLOW IVP PRN (11:59)
[2020-03-09] MEDS: Morphine 2 MG/ML SYRINGE SLOW IVP PRN ×2 (12:04→17:53)
--- NOTE | 2020-03-09 13:14 | PDOC.CPN ---
- Subjective Date: 03/09/20 Time: 13:13 Interval history: Complaining of abdominal pain today. No chest pain, no syncope. - Review of Systems General: denies: fever/chills, weight/appetite/sleep changes, night sweats, fatigue Respiratory: denies: cough, congestion, shortness of breath, exercise intolerance Cardiovascular: denies: chest pain, palpitation, edema, paroxysmal nocturnal dyspnea, orthopnea Gastrointestinal: reports: abd pain. denies: nausea, vomiting, diarrhea, constipation, GI bleeding Musculoskeletal: reports: pain. denies: tenderness, stiffness, swelling, arthritis/arthralgias Neurological: denies: numbness, syncope, seizure, weakness - Objective Allergies/Adverse Reactions: Allergies Allergy/AdvReac Type Severity Reaction Status Date / Time sulfamethoxazole Allergy Verified 02/28/20 22:41 Sulfa (Sulfonamide AdvReac Intermediate Nausea Verified 02/28/20 22:41 Antibiotics) Visit Medications: Current Medications Acetaminophen (Tylenol) 650 mg PO Q4H PRN PRN Reason: Headache/Fever/Mild Pain (1-3) Hydrocodone Bitart/Acetaminophen ([place] 5/325) 2 tab PO Q6H PRN PRN Reason: Moderate Pain (4-6) Last Admin: 03/09/20 09:29 Dose: 2 tab Albuterol/Ipratropium (Duoneb) 3 ml NEB [id number] PRN PRN Reason: SOB &/or Wheezing Bacitracin (Bacitracin) 2 pk TOP BID [facility]ORA Last Admin: 03/09/20 09:08 Dose: 2 pk Cholecalciferol (Vitamin D) 400 units PO DAILY [facility] Last Admin: 03/09/20 09:07 Dose: 400 units Dextrose/Water (Dextrose 50%) 25 gm SLOW IVP PRN PRN PRN Reason: Hypoglycemia Last Admin: 03/01/20 05:36 Dose: 25 gm Enoxaparin Sodium (Lovenox) 40 mg SC 0900 [facility] Last Admin: 03/09/20 09:08 Dose: 40 mg Ergocalciferol (Drisdol) 1.25 mg PO Q7DAYS [facility] Furosemide (Lasix) 40 mg PO DAILY [facility] Last Admin: 03/09/20 09:07 Dose: 40 mg Glucagon (Glucagon) 1 mg IM PRN PRN PRN Reason: Hypoglycemia Guaifenesin/Dextromethorphan (Robitussin Dm) 15 ml PO Q4H PRN PRN Reason: Cough Hydralazine HCl (Apresoline) 10 mg SLOW IVP Q6H PRN PRN Reason: SBP GREATER THAN 160 Last Admin: 03/09/20 11:59 Dose: 10 mg Hydroxyzine HCl (Atarax) 10 mg PO Q6H PRN PRN Reason: Itching Last Admin: 03/08/20 17:56 Dose: 10 mg Dextrose/Water (D5w) 1,000 mls @ 0 mls/hr IV .Q0M PRN PRN Reason: Hypoglycemia Insulin Human Lispro (Humalog) 0 units SC .MILD SLIDING SCALE PRN PRN Reason: Mild Correctional Scale Last Admin: 03/03/20 11:25 Dose: 3 unit Lisinopril (Zestril) 40 mg PO DAILY [facility] Last Admin: 03/09/20 09:07 Dose: 40 mg Morphine Sulfate (Morphine) 2 mg SLOW IVP Q4H PRN PRN Reason: severe pain 4-10 Last Admin: 03/09/20 12:04 Dose: 2 mg Multivitamins (Theragran) 1 tab PO DAILY [facility] Last Admin: 03/09/20 09:07 Dose: 1 tab Ondansetron HCl (Zofran) 4 mg IVP Q6H PRN PRN Reason: Nausea/Vomiting use 1st Last Admin: 03/07/20 08:21 Dose: 4 mg Oxybutynin Chloride (Ditropan) 5 mg PO TID [facility] Last Admin: 03/09/20 09:07 Dose: 5 mg Pantoprazole Sodium (Protonix) 40 mg IVP Q12HR [facility] Last Admin: 03/09/20 09:09 Dose: 40 mg Polyethylene Glycol (Miralax) 17 gm PO DAILY [facility] Last Admin: 03/09/20 09:08 Dose: 17 gm Sodium Chloride (Flush - Normal Saline) 10 ml IVF Q12HR [facility] Last Admin: 03/09/20 09:08 Dose: 10 ml Sodium Chloride (Flush - Normal Saline) 10 ml IVF PRN PRN PRN Reason: Saline Flush Spironolactone (Aldactone) 50 mg PO DAILY [facility] Last Admin: 03/09/20 09:07 Dose: 50 mg Vital Signs & Weight: Vital Signs Temp Pulse Pulse Pulse Resp BP BP 03/09/20 11:59 98 171/80 H 03/09/20 11:49 98.1 F 98 17 03/09/20 11:30 104 H 103 H 169/77 H 03/09/20 09:03 98.8 F 103 H 20 03/09/20 08:50 03/09/20 03:40 98.1 F 97 16 BP BP BP Pulse Ox 03/09/20 11:59 03/09/20 11:49 171/80 H 95 03/09/20 11:30 171/80 H 03/09/20 09:03 152/67 H 95 03/09/20 08:50 95 03/09/20 03:40 158/68 H 95 Admit Weight 136 lb 1.6 oz Weight 138 lb - Physical Exam General: alert & oriented x3 Neck: supple neck Cardiac: regular rate and rhythm Lungs: clear to auscultation Neuro: grossly intact Abdomen: active bowel sounds Extremities: 2+ LE edema Skin: clear Musculoskeletal: normal range of motion - Labs Result Diagrams: 03/09/20 05:35 03/09/20 05:35 Troponin/CKMB Troponin I 0.028 ng/mL (< 0.028) 02/28/20 17:38 - Telemetry Sinus rhythms and dysrhythmias: sinus rhythm - Assessment/Plan Assessment/Plan: 1. Chronic abdominal pain. 2. High degree AV block 3. Hx of syncope 4. Urinary retention, daily self catheterizations and UTI's in the past. 5. MSSA abscess drained form scalp 1 month ago. 6. Nephrotic range proteinuria 7. Splenic infarct. 8. Severe anemia PLAN: - Likely nephrotic syndrome related to recent Staph infection. - Will await likely a month for her scalp wound to completely heal before placing a PPM. - Will need a 30 day monitor on discharge which I will arrange. - Will sign off. please call with any questions.
[2020-03-09 15:55] VITALS: BP 153/70; TEMP 99.1
--- NOTE | 2020-03-09 20:37 | PRG ---
DATE OF SERVICE: 03/09/2020 SERVICE: Nephrology. SUBJECTIVE: A 59-year-old female seen in followup for nephrotic range proteinuria and anasarca. The patient reports improving oral intake as well as generalized swelling. Denied fever, nausea, or vomiting. OBJECTIVE: VITAL SIGNS: Temperature 98.3, pulse 103, respiratory rate 20, SpO2 of 95% on room air, and blood pressure is 152/67. I and O in the last 24 hours showed total intake of 1067 with total output of 1175. GENERAL: Chronically ill-looking female, in no obvious distress. Afebrile. Anicteric. Acyanotic. HEENT: Normocephalic and atraumatic. Oral mucosa is moist. CARDIOVASCULAR: Regular rhythm and rate, but tachycardic. RESPIRATORY: Fair air entry bilaterally with no obvious rhonchi or use of accessory muscles. GI: Flat, soft, and nondistended with normal bowel sounds. UROGENITAL: Pulido catheter is in place, draining some urine. EXTREMITIES: Moderate edema of lower extremities noted as well as trace to mild edema of upper extremities noted as well. 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 Cranial nerves 2 through 12 are grossly intact. DIAGNOSTIC DATA: CBC showed WBC count of 7.9, hemoglobin of 8.0, MCV of 104, and platelet of 345. Chemistry showed sodium 141, potassium 4.8, chloride 108, CO2 of 30, BUN 26, creatinine 0.91, glucose 106, calcium 8.0, phosphorus 4.5, and albumin 2.6. ASSESSMENT: 1. Nephrotic syndrome: Due to infectious glomerulonephritis superimposed on advanced nephrotic syndrome. 2. Hypertension: Control is still suboptimal. 3. Electrolytes: Acceptable, but potassium is trending up. 4. Metabolic alkalosis: Most likely due to intravascular contraction related to diuretic therapy. 5. Hypoalbuminemia. 6. Anasarca: Improving with diuretic therapy. PLAN: 1. We will change lisinopril to 40 mg p.o. daily. 2. We will also reduce spironolactone to 50 mg p.o. daily in view of increase in serum potassium. 3. We will also decrease Nexium to 40 mg p.o. daily in view of worsening metabolic alkalosis, suggestive of contraction alkalosis. 4. We will continue to monitor oral intake as well as urine output and renal function and electrolytes. 5. Alfred oral intake advised. 6. Disposition: The patient can be discharged from Nephrology point of view to follow up in 1 to 2 weeks with repeat labs. However, the patient is discharged to acute rehabilitation, we will follow the patient over there. Further treatment to follow depending on hospital course. Job ID: [id number]
--- NOTE | 2020-03-10 14:09 | DIS ---
DATE OF ADMISSION: 02/28/2020 DATE OF DISCHARGE: 03/09/2020 DISCHARGE DISPOSITION: Inpatient rehab. DISCHARGE DIAGNOSES: 1. Nephrotic range proteinuria. 2. Postinfectious glomerulonephritis. 3. Recent scalp cellulitis and abscess. 4. End-stage renal disease, on hemodialysis. 5. Abdominal pain. 6. Nausea and vomiting. 7. Hypertension. 8. Severe deconditioning. 9. Moderate malnutrition. 10. Chronic back pain. 11. Neurogenic bladder with urinary retention, in and out self cathing. 12. Bradycardia. DISCHARGE MEDICATIONS: Include: 1. Aldactone 50 mg p.o. daily. 2. MiraLAX 17 g daily. 3. Protonix 40 mg daily. 4. Theragran-M one tablet daily. 5. Lisinopril 40 mg p.o. daily. 6. Lasix 40 mg a day. 7. Lovenox 40 mg subcu daily. 8. Vitamin D3 of 400 international units p.o. daily. 9. Zinc ointment as directed. 10. Zanaflex 4 mg q.8 as needed. 11. Ditropan 5 mg p.o. t.i.d. IMAGING DONE DURING THE HOSPITAL STAY: The patient had a CT scan of the abdomen and pelvis showing progressive 3rd spacing, bilateral pleural effusions, resolving splenic infarction and mild bowel wall thickening in the sigmoid colon. The patient also had a CT scan of the brain showing some mucosal thickening in the mastoid air cells. 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 CODE STATUS: Full code. ALLERGIES: SULFAMETHOXAZOLE AND SULFA. HOSPITAL COURSE: Ms. Sal is a very pleasant 59-year-old female, who was admitted to the hospital with complaints of nausea, vomiting, and abdominal pain, poor oral intake and general failure to thrive. She was evaluated in the ER. CT scan of the abdomen and pelvis was performed. This did not show any new abnormalities. Gastroenterology was consulted. It was discovered that she has already had an extensive GI workup in the past including upper and lower endoscopy, CT scan and even exploratory laparotomy. Therefore, these were not repeated during this hospital stay. It is possible she may have some degree of diabetic gastropathy. She was also noted to have significant peripheral edema and lalit anasarca, low albumin levels. However, lipid panel was normal. Nephrology was consulted and she was found to have nephrotic range proteinuria. She was over 5 g of protein in 24 hours. A renal biopsy was done to help determine the etiology. 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 Her dose of the GABRIELA inhibitor was increased, as well as she was seen by dietitian to optimize her nutritional status. Due to this condition, she has significant moderate malnutrition as well as due to her poor oral intake. She developed bradycardia also during her hospital stay. She was evaluated by Cardiology and it was felt it would be best to wait until after the staph infection and immune complex deposition completely cleared before pacemaker was entertained. An event monitor was placed and should stay on for 30 days and she can be reassessed at that time. She had considerable deconditioning. She was evaluated and treated by Physical Therapy and will need continuing physical therapy and therefore is being transferred to the inpatient rehabilitation unit for this. Job ID: [id number]
[2020-03-12] MEDS ORDERED: Ergocalciferol 1.25 MG(50,000 UNITS) CAP PO SCH (09:00)
--- NOTE | 2020-03-12 20:32 | PQF ---
KAVITA STARR TONI MD [id number] [facility]- B02 [id number] CLINICAL DOCUMENTATION CLARIFICATION FORM: POST DISCHARGE Addendum to original discharge summary date: ____ Late entry note date: __ DATE:03/12/2020 ATTN: Bartolo Cosme Please exercise your independent, professional judgment in responding to the clarification form. Clinical indicators are provided on the bottom of this form for your review In your clinical opinion based on clinical findings below, can you please identify the etiology of generalized abdominal pain if due to: Please check appropriate box(s): [ X] Nephrotic syndrome with Postinfectious glomerulonephritis [ ] Splenic Infarct [ ] Ischemic colitis [ ] Sepsis [ X ] Other diagnosis _Post Infectious glomerulonephritis with nephrotic range proteinuria [ ] Unable to determine For continuity of documentation, please document condition throughout progress notes and discharge summary. Thank You. CLINICAL INDICATORS - SIGNS / SYMPTOMS / LABS Laboratory 02/27 WBC 15.5, Neutrophils 88.9, Plt count 289, Lactic acid 0.8 Vital signs 02/27 BP 87/48, Pulse 98, Resp 22 H&P p1 02/27 Dr Cunha Sent by PCP for altered mental status, global weakness H&P p6 02/27 Dr Cunha Sepsis due to infection Hospitalist PN p6 03/[address] Her CT abd/pelvic negative for acute process she does have splenic infarct and mild colitis Discharge summary p1 03/09 Dr Rose Postinfectious glomerulonephritis Discharge summary p1 03/09 Dr oRse neurogenic bladders with urinary retention , in and out of seft cathing RISK FACTORS H&P p1 02/27 59 year-old female H&P p1 6 Frequent UTIs H&P p6 02/27 DM with hyperglycemia H&P p6 02/27 Anemia H&P p6 02/27 UTI Discharge summary p1 03/09 Dr Milton Recent Scalp Cellulitis and abscess Discharge summary p1 03/09- ESRD Discharge summary p1 03/09- HTN Discharge summary p1 03/09 Postinfectious glomerulonephritis TREATMENTS: DEC 02 IV Vancomycin 1gm DEC 02 IVF NS 1L DEC 02 IV Potassium Chloride 20 meq Dec 02 IV Zosyn 3.375gm DEC 02 IV Morphine 4gm DEC 02 IV Ativan 2g DEC 02 Rocephin 2gm ID consult 03/03 Andrei Reece Blood culture 02/27 CT abdomen Renal Biopsy 03/08 Dr Whitman Renal Consult 03/01 Ubaldo Wooten (This form is maintained as a part of the permanent medical record) 2014 [employer]. All Rights Reserved [email or web address]
--- NOTE | 2020-03-12 20:33 | PQF ---
KAVITA STARR TONI MD [id number] [facility]- B02 [id number] CLINICAL DOCUMENTATION CLARIFICATION FORM: POST DISCHARGE Addendum to original discharge summary date: ____ Late entry note date: __ DATE:03/12/2020 ATTN: Bartolo Cosme Please exercise your independent, professional judgment in responding to the clarification form. Clinical indicators are provided on the bottom of this form for your review Please check appropriate box(s): [ ] Sepsis due to UTI [ ] Sepsis due to Infected Pulido catheter [ ] Sepsis due to Scalp abscess and cellulitis [X ] No sepsis, localized infection only [ ] Other diagnosis [ ] Unable to determine For continuity of documentation, please document condition throughout progress notes and discharge summary. Thank You. CLINICAL INDICATORS - SIGNS / SYMPTOMS / LABS Laboratory 02/27 WBC 15.5, Neutrophils 88.9, Plt count 289, Lactic acid 0.8 Blood culture 02/27 No growth after 5 days Vital signs 02/27 BP 87/48, Pulse 98, Resp 22 H&P p1 02/27 Dr Cunha Sent by PCP for altred mental status, global weakness H&P p6 02/27 Dr Cunha Sepsis due to infection Discharge summary p1 03/09 Dr Rose Recent Scalp Cellulitis and abscess Discharge summary p1 03/09 Dr Rose Postinfectious glomerulonephritis Discharge summary p1 03/09 Dr Rose neurogenic bladders with urinary retention , in and out of self cathing RISK FACTORS H&P p1 02/27 59 year-old female H&P p1 02/27 Frequent UTIs H&P p6 02/27 DM with hyperglycemia H&P p6 02/27 Anemia H&P p6 02/27 UTI Discharge summary p1 03/09 Dr Rose Recent Scalp Cellulitis and abscess Discharge summary p1 03/09- ESRD Discharge summary p1 03/09- HTN Discharge summary p1 03/09 Postinfectious glomerulonephritis TREATMENTS: DEC 02 IV Vancomycin 1gm DEC 02 IVF NS 1L DEC 02 IV Potassium Chloride 20 meq Dec 02 IV Zosyn 3.375gm DEC 02 IV Morphine 4gm DEC 02 IV Ativan 2g DEC 02 Rocephin 2gm ID consult 03/03 Andrei Reece Blood culture 02/27 (This form is maintained as a part of the permanent medical record) 2014 [employer]. All Rights Reserved [email or web address]
--- NOTE | 2020-03-12 20:34 | PQF ---
KAVITA STARR TONI MD [id number] [facility]- B02 [id number] CLINICAL DOCUMENTATION CLARIFICATION FORM: POST DISCHARGE Addendum to original discharge summary date: ____ Late entry note date: __ DATE:03/12/2020 ATTN: Bartolo Cosme Please exercise your independent, professional judgment in responding to the clarification form. Clinical indicators are provided on the bottom of this form for your review Please check appropriate box(s): [X ] Encephalopathy: Etiology: [ X] Metabolic [ ] Toxic [ ] Septic [ ] Unspecified [ ] Other (please specify) : [ ] Transient Alteration of Awareness [ ] Other diagnosis [ ] Unable to determine In addition, please specify: Present on Admission (POA): [ X] Yes [ ] No [ ] Unable to determine For continuity of documentation, please document condition throughout progress notes and discharge summary. Thank You. CLINICAL INDICATORS - SIGNS / SYMPTOMS / LABS Laboratory 02/27 WBC 15.5, Neutrophils 88.9, Plt count 289, Sodium 133, Potassium 2.9 Vital signs 02/27 BP 87/48, Pulse 98, Resp 22 H&P p1 02/27 Dr Cunha Sent by PCP for altered mental status, global weakness H&P p6 02/27 Dr Cunha DM with hyperglycemia, Hypokalemia and Hyponatremia H&P p6 02/27 Dr Cunha Sepsis due to infection RISK FACTORS H&P p1 02/27 59 year-old female H&P p1 02/27 Frequent UTIs H&P p6 02/27 DM with hyperglycemia H&P p6 02/27 Anemia H&P p6 02/27 Hypokalemia H&P p6 02/27 Hyponatremia TREATMENTS: DEC 02 IV Vanco,ycin 1gm DEC 02 IVF NS 1L DEC 02 IV Potassium Chloride 20 meq Dec 02 IV Zosyn 3.375gm DEC 02 IV Morphine 4gm DEC 02 IV Ativan 2g DEC 02 Rocephine 2gm (This form is maintained as a part of the permanent medical record) 2014 [employer], [employer]. All Rights Reserved [email or web address]
== END 2020-03-09 19:13 | DRG 698 ==
LOC: ERS 14:35 → IMCU/EMU 20:41 → ERS 22:08 → 2SE 03-03 04:44
PROVIDERS: ADMIT Internal Medicine; ATTEND Internal Medicine
PROC: 30233N1 Transfusion of Nonautologous Red Blood Cells into Peripheral Vein, Percutaneous Approach (ICD-10-PCS; 2020-03-06)
PROC: 0TB03ZX Excision of Right Kidney, Percutaneous Approach, Diagnostic (ICD-10-PCS; principal; 2020-03-08)
DX: N04.8 Nephrotic syndrome with other morphologic changes (principal); G93.41 Metabolic encephalopathy; E44.0 Moderate protein-calorie malnutrition; E87.1 Hypo-osmolality and hyponatremia; E87.2 Acidosis; E87.3 Alkalosis; K55.9 Vascular disorder of intestine, unspecified; L03.811 Cellulitis of head [any part, except face]; L02.811 Cutaneous abscess of head [any part, except face]; N39.0 Urinary tract infection, site not specified; I12.0 Hypertensive chronic kidney disease with stage 5 chronic kidney disease or end stage renal disease; N18.6 End stage renal disease; E11.22 Type 2 diabetes mellitus with diabetic chronic kidney disease; M54.9 Dorsalgia, unspecified; N31.9 Neuromuscular dysfunction of bladder, unspecified; R33.9 Retention of urine, unspecified; E11.69 Type 2 diabetes mellitus with other specified complication; K31.9 Disease of stomach and duodenum, unspecified; F41.9 Anxiety disorder, unspecified; F32.9 Major depressive disorder, single episode, unspecified; E87.6 Hypokalemia; D63.1 Anemia in chronic kidney disease; G89.4 Chronic pain syndrome; E55.9 Vitamin D deficiency, unspecified; E88.09 Other disorders of plasma-protein metabolism, not elsewhere classified; D73.5 Infarction of spleen; E87.70 Fluid overload, unspecified; E87.8 Other disorders of electrolyte and fluid balance, not elsewhere classified; D53.9 Nutritional anemia, unspecified; E11.65 Type 2 diabetes mellitus with hyperglycemia; M79.7 Fibromyalgia; E86.0 Dehydration; I95.9 Hypotension, unspecified; I44.39 Other atrioventricular block; I49.5 Sick sinus syndrome; T50.2X5A Adverse effect of carbonic-anhydrase inhibitors, benzothiadiazides and other diuretics, initial encounter; Z90.49 Acquired absence of other specified parts of digestive tract; Z68.25 Body mass index [BMI] 25.0-25.9, adult; Z98.1 Arthrodesis status; Z90.710 Acquired absence of both cervix and uterus; Z87.440 Personal history of urinary (tract) infections; Z78.1 Physical restraint status; Z88.2 Allergy status to sulfonamides; Z79.899 Other long term (current) drug therapy
CPT/HCPCS: 36415; 36416; 36430; 36556; 50200; 51701; 70450; 71045; 74177; 77002; 80048; 80053; 80061; 80069; 81001; 81003; 81015; 82274; 82306; 82570; 82607; 83036; 83605; 83690; 83735; 83883; 84100; 84132; 84156; 84165; 84166; 84484; 85014; 85018; 85025; 85027; 85610; 85652; 85730; 86038; 86140; 86225; 86850; 86900; 86901; 87040; 87086; 88329; 93005; 96365; 96366; 96367; 96368; 96372; 96375; C9113; J0360; J0696; J1650; J1815; J1940; J2060; J2250; J2270; J2405; J2543; J2765; J3010; J3370; J3480; J3490; J7042; P9016; P9047; Q9967

== ENCOUNTER 2020-04-27 13:43 | Emergency (ER) | payer OTHER ==
[2020-04-27 15:19] LABS: #Basophils 0.1 thou/uL (0.0-0.2); #Eosinphils 0.3 thou/uL (0.0-0.7); #Lymphocytes 2.4 thou/uL (1.20-3.40); #Monocytes 0.5 thou/uL (0.11-0.59); #Neutrophils 8.3 thou/uL (1.40-6.50); %Basophils 0.8 % (0.0-1.0); %Eosinophils 2.5 % (0.0-10.0); %Lymphocytes 20.7 % (21.0-51.0); %Monocytes 4.1 % (0.0-10.0); %Neutrophils 71.8 % (42.0-75.0); Hemoglobin 13.1 g/dL (12.0-16.0); Mean Corpuscular Hemoglobin 32.2 pg (27.0-31.0); Mean Corpuscular Volume 94.7 fL (78.0-98.0); Mean Platelet Volume 7.3 fL (7.4-10.4); Platelet Count 238 thou/uL (130-400); Red Blood Cell (RBC) Count 4.08 mill/uL (4.20-5.40); White Blood Cell (WBC) Count 11.5 thou/uL (4.8-10.8)
[2020-04-27 15:20] LABS: ALT (SGPT) 27 U/L (8-55); AST (SGOT) 31 U/L (5-34); Albumin 2.7 g/dL (3.5-5.0); Alkaline Phosphatase 105 U/L (40-110); Anion Gap 13 mmol/L (10-20); BUN (Urea Nitrogen) 17 mg/dL (9.8-20.1); Bilirubin, Total 0.2 mg/dL (0.2-1.2); Calc. Creatinine Clearance 0 mL/min (70-130); Calcium 8.2 mg/dL (7.8-10.44); Carbon Dioxide 21 mmol/L (22-29); Chloride 105 mmol/L (98-107); Estimated GFR-MDRD 76; Globulin 2.5 g/dL (2.4-3.5); Glucose 117 mg/dL (70-105); Potassium 3.8 mmol/L (3.5-5.1); Protein, Total 5.2 g/dL (6.0-8.3); Sodium 135 mmol/L (136-145)
[2020-04-27] MEDS ORDERED: Morphine 4 MG/ML VIAL ONE (16:14)
[2020-04-27] MEDS ORDERED: Metoclopramide HCl 10 MG/2 ML VIAL ONE (16:14)
--- NOTE | 2020-04-27 17:45 | CT ---
EXAM: CT ABDOMEN AND PELVIS HISTORY: Abdominal pain x1 week. Worsening symptoms. Diarrhea x3 days. COMPARISON: 02/28/2020 Procedure: Multiple contiguous axial images were obtained and a CT of the abdomen and pelvis with IV contrast. C oronal reformats were performed. FINDINGS: Lower Chest: Chronic changes Vessels: Atherosclerosis in a nonaneurysmal aorta. Heart: Normal heart size. No significant pericardial fluid Abdomen: Portal vein:Patent Gallbladder: Surgically absent Liver: within normal limits. Pancreas: within normal limits. Spleen: Stable wedge-shaped hypodensity in the spleen likely representing a remote splenic infarct. Adrenals: within normal limits. Kidneys: Symmetric enhancement. No obstructive uropathy. Peritoneum: No ascites or free air, no fluid collection. Bowel: Limited evaluation due to the lack of oral contrast administration. No evidence of bowel obstr uction. Ileocecal junction is unremarkable. Normal caliber appendix. There is moderate distention of the cecum, ascending colon. There is hyperemia of the bowel wall involving the cecum, ascending [place] and transverse colon to its midportion. There is abrupt transition in the amount of fecal material at the change in bowel wall enhancement. A infectious or inflammatory colitis is suspected. Left hemicolon cannot be adequately assessed due inadequate distention. There is diverticulosis, without evidence of diverticulitis.. Mesentery and Retroperitoneum: No enlarged mesenteric or retroperitoneal lymph nodes. Abdominal Wall: Mild soft tissue edema. Pelvis: Reproductive Organs: Surgically absent uterus. Pelvis: No mass, lymphadenopathy, free air or free fluid. Bladder: Presence of Pulido catheter. There is still a small amount of urine in the bladder. No obviou s mucosal abnormality. Bones: Old anterior rib fractures. Uncomplicated lumbar fusion. IMPRESSION: Right hemicolon bowel wall thickening with abrupt transition in terms of hyperemia and fecal material . Correlate for right hemicolon infectious or inflammatory colitis. Transcribed Date/Time: 04/27/2020 6:01 PM
[2020-04-27 18:46] LABS: Bacteria/HPF 4+ HPF (None Seen); Bilirubin Negative (Negative); Blood, Urine 1+ (Negative); Clarity Extra Turbid (Clear); Glucose, Urine (Dipstick) Normal (Negative); Ketone, Urine Negative (Negative); Leukocyte 500 Leu/uL (Negative); Nitrite Negative (Negative); Protein, Urine (Dipstick) 600 mg/dL (Neg-Trace); Specific Gravity, Urine 1.015 (1.002-1.036); Squamous Epithelial 0-3 HPF (0-3); Transitional Epithelial 0-3 HPF (None Seen); Urobilinogen Normal mg/dL (Less than 2); WBC/HPF Greater than 50 HPF (0-3)
[2020-04-27 18:53] LABS: Yeast-Budding 1+ HPF (None Seen)
== END 2020-04-27 21:19 | disposition home or self-care (01) ==
LOC: ERS 13:43
DX: K52.9 Noninfective gastroenteritis and colitis, unspecified (principal); E11.9 Type 2 diabetes mellitus without complications; I10 Essential (primary) hypertension; F32.9 Major depressive disorder, single episode, unspecified; F41.9 Anxiety disorder, unspecified; Z79.4 Long term (current) use of insulin; Z79.899 Other long term (current) drug therapy
CPT/HCPCS: 36415; 74177; 80053; 81003; 81015; 82010; 85025; 87077; 87086; 87186; 96365; 96375; J2270; J2765

== ENCOUNTER 2020-07-15 12:07 | Emergency (ER) | payer OTHER ==
[2020-07-15] MEDS ORDERED: Morphine 4 MG/ML VIAL ONE (12:51)
[2020-07-15] MEDS ORDERED: Ondansetron PF 4 MG/2 ML Vial ONE (12:52)
[2020-07-15 13:19] LABS: #Basophils 0.1 thou/uL (0.0-0.2); #Eosinphils 0.2 thou/uL (0.0-0.7); #Lymphocytes 1.7 thou/uL (1.20-3.40); #Monocytes 0.4 thou/uL (0.11-0.59); #Neutrophils 7.9 thou/uL (1.40-6.50); %Basophils 1.1 % (0.0-1.0); %Eosinophils 2.3 % (0.0-10.0); %Lymphocytes 16.1 % (21.0-51.0); %Monocytes 3.7 % (0.0-10.0); %Neutrophils 76.8 % (42.0-75.0); Hemoglobin 10.5 g/dL (12.0-16.0); Mean Corpuscular Hemoglobin 32.2 pg (27.0-31.0); Mean Corpuscular Volume 94.8 fL (78.0-98.0); Mean Platelet Volume 6.9 fL (7.4-10.4); Platelet Count 299 thou/uL (130-400); RBC Distribution Width 12.3 % (11.5-14.5); Red Blood Cell (RBC) Count 3.27 mill/uL (4.20-5.40); White Blood Cell (WBC) Count 10.3 thou/uL (4.8-10.8)
[2020-07-15 13:36] LABS: ALT (SGPT) 20 U/L (8-55); AST (SGOT) 21 U/L (5-34); Albumin 2.1 g/dL (3.5-5.0); Alkaline Phosphatase 113 U/L (40-110); Anion Gap 9 mmol/L (10-20); BUN (Urea Nitrogen) 36 mg/dL (9.8-20.1); Bilirubin, Total Less than 0.2 mg/dL (0.2-1.2); Calc. Creatinine Clearance 0 mL/min (70-130); Calcium 7.8 mg/dL (7.8-10.44); Carbon Dioxide 19 mmol/L (22-29); Chloride 112 mmol/L (98-107); Estimated GFR-MDRD 63; Globulin 2.4 g/dL (2.4-3.5); Glucose 181 mg/dL (70-105); Lipase 8 U/L (8-78); Potassium 5.1 mmol/L (3.5-5.1); Protein, Total 4.5 g/dL (6.0-8.3); Sodium 135 mmol/L (136-145)
[2020-07-15 13:50] LABS: Bacteria/HPF 4+ HPF (None Seen); Bilirubin Negative (Negative); Blood, Urine 1+ (Negative); Clarity Extra Turbid (Clear); Glucose, Urine (Dipstick) 300 mg/dL (Negative); Ketone, Urine Negative (Negative); Leukocyte 500 Leu/uL (Negative); Nitrite Negative (Negative); Protein, Urine (Dipstick) 600 mg/dL (Neg-Trace); RBC/HPF Greater than 50 HPF (0-3); Specific Gravity, Urine 1.012 (1.002-1.036); Squamous Epithelial None Seen HPF (0-3); Triple Phosphate Crystal 1+ HPF (None Seen); Urobilinogen Normal mg/dL (Less than 2); WBC/HPF Greater than 50 HPF (0-3); pH, Urine 8.5 (5.0-9.0)
[2020-07-15] MEDS ORDERED: Fleet Enema 133 ML BOT FS SCH (15:00)
--- NOTE | 2020-07-15 15:04 | CT ---
CT ABDOMEN AND PELVIS WITH IV CONTRAST: 07/15/20 INDICATIONS: Abdominal pain. Comparison made to recent CT abdomen and pelvis 04/27/20. FINDINGS: Images through the lung bases now reveal small bilateral pleural effusion which are new from the prio r study. Liver, spleen, and pancreas unremarkable. Post cholecystectomy change again noted. Adrenal glands and kidneys unremarkable. No hydronephrosis. Small bowel loops show nonspecific distention without dilatation. Review of the colon shows stool throughout the colon. There is prominent stool in the rectum with augustin dence of mild mural thickening and surrounding haziness suggesting possible colitis at the anorectal junction. Stercoral colitis should be excluded given the appearance of fecal impaction at the rectosi gmoid. Pulido catheter is in place. No significant free fluid. IMPRESSION: There is scattered stool throughout the colon with a large amount of stool in the rectosigmoid. Mural thickening and stranding inflammatory haziness at the anorectal region suggests changes of stercoral colitis. POS: AGW
[2020-07-15] MEDS ORDERED: hydrALAZINE 25 MG TAB ONE (15:29)
== END 2020-07-15 17:25 | disposition home or self-care (01) ==
LOC: ERS 12:07
DX: K52.9 Noninfective gastroenteritis and colitis, unspecified (principal); D64.9 Anemia, unspecified; N39.0 Urinary tract infection, site not specified; E11.9 Type 2 diabetes mellitus without complications; I10 Essential (primary) hypertension; F41.9 Anxiety disorder, unspecified; F32.9 Major depressive disorder, single episode, unspecified; Z79.899 Other long term (current) drug therapy
CPT/HCPCS: 36415; 74177; 80053; 81003; 81015; 82274; 83605; 83690; 85025; 87077; 87086; 87186; 96374; 96375; J2270; J2405; Q9967

== ENCOUNTER 2020-07-21 20:44 | Emergency (ER) | payer OTHER ==
[2020-07-21] MEDS ORDERED: traMADol HCl 50 MG TAB ONE (20:58)
[2020-07-21] MEDS ORDERED: Piperacillin/Tazobactam 4.5 GM VIAL ONE (21:09)
[2020-07-21 21:16] LABS: #Basophils 0.1 thou/uL (0.0-0.2); #Eosinphils 0.2 thou/uL (0.0-0.7); #Lymphocytes 2.4 thou/uL (1.20-3.40); #Monocytes 0.4 thou/uL (0.11-0.59); %Basophils 0.9 % (0.0-1.0); %Monocytes 4.1 % (0.0-10.0); Hemoglobin 12.3 g/dL (12.0-16.0); Mean Corpuscular HGB CONC 33.8 g/dL (32.0-36.0); Mean Corpuscular Hemoglobin 32.3 pg (27.0-31.0); Mean Corpuscular Volume 95.6 fL (78.0-98.0); Mean Platelet Volume 6.9 fL (7.4-10.4); Platelet Count 317 thou/uL (130-400); RBC Distribution Width 12.2 % (11.5-14.5); Red Blood Cell (RBC) Count 3.79 mill/uL (4.20-5.40)
[2020-07-21 21:24] LABS: Bacteria/HPF 4+ HPF (None Seen); Bilirubin Negative (Negative); Blood, Urine Negative (Negative); Clarity Turbid (Clear); Glucose, Urine (Dipstick) 500 mg/dL (Negative); Ketone, Urine Negative (Negative); Leukocyte 500 Leu/uL (Negative); Nitrite 1+ (Negative); Protein, Urine (Dipstick) Greater than 600 mg/dL (Neg-Trace); RBC/HPF None Seen HPF (0-3); Specific Gravity, Urine 1.021 (1.002-1.036); Squamous Epithelial 0-3 HPF (0-3); Triple Phosphate Crystal 2+ HPF (None Seen); Urobilinogen Normal mg/dL (Less than 2); pH, Urine 8.5 (5.0-9.0)
[2020-07-21 21:40] LABS: ALT (SGPT) 20 U/L (8-55); AST (SGOT) 25 U/L (5-34); Albumin 2.4 g/dL (3.5-5.0); Alkaline Phosphatase 108 U/L (40-110); Anion Gap 11 mmol/L (10-20); BUN (Urea Nitrogen) 26 mg/dL (9.8-20.1); Bilirubin, Total Less than 0.2 mg/dL (0.2-1.2); Calc. Creatinine Clearance 0 mL/min (70-130); Calcium 7.8 mg/dL (7.8-10.44); Carbon Dioxide 19 mmol/L (22-29); Chloride 114 mmol/L (98-107); Estimated GFR-MDRD 46; Globulin 2.5 g/dL (2.4-3.5); Glucose 194 mg/dL (70-105); Potassium 4.6 mmol/L (3.5-5.1); Protein, Total 4.9 g/dL (6.0-8.3); Sodium 139 mmol/L (136-145)
== END 2020-07-22 00:02 ==
LOC: ERS 20:44
DX: N39.0 Urinary tract infection, site not specified (principal); E11.9 Type 2 diabetes mellitus without complications; I10 Essential (primary) hypertension; F32.9 Major depressive disorder, single episode, unspecified; F41.9 Anxiety disorder, unspecified; Z79.899 Other long term (current) drug therapy
CPT/HCPCS: 80053; 81003; 81015; 85025; 87077; 87086; 87186; 96365; J2543

== ENCOUNTER 2020-09-02 14:22 | Inpatient (IN) | payer OTHER ==
[2020-09-02] MEDS ORDERED: traMADol HCl 50 MG TAB ONE (14:42)
[2020-09-02 14:57] LABS: #Lymphocytes 0.9 thou/uL (1.20-3.40); #Monocytes 0.7 thou/uL (0.11-0.59); #Neutrophils 7.4 thou/uL (1.40-6.50); %Basophils 0.5 % (0.0-1.0); %Eosinophils 0.4 % (0.0-10.0); %Lymphocytes 10.2 % (21.0-51.0); %Monocytes 8.1 % (0.0-10.0); %Neutrophils 80.8 % (42.0-75.0); Hemoglobin 9.7 g/dL (12.0-16.0); Mean Corpuscular HGB CONC 33.4 g/dL (32.0-36.0); Mean Corpuscular Hemoglobin 32.3 pg (27.0-31.0); Mean Corpuscular Volume 96.7 fL (78.0-98.0); Mean Platelet Volume 8.2 fL (7.4-10.4); Platelet Count 266 thou/uL (130-400); Red Blood Cell (RBC) Count 3.01 mill/uL (4.20-5.40); White Blood Cell (WBC) Count 9.2 thou/uL (4.8-10.8)
[2020-09-02 14:57] LABS: Bacteria/HPF 4+ HPF (None Seen); Bilirubin Negative (Negative); Blood, Urine 2+ (Negative); Clarity Extra Turbid (Clear); Glucose, Urine (Dipstick) 100 mg/dL (Negative); Ketone, Urine Negative (Negative); Leukocyte 500 Leu/uL (Negative); Nitrite Negative (Negative); Protein, Urine (Dipstick) 300 mg/dL (Neg-Trace); Specific Gravity, Urine 1.013 (1.002-1.036); Squamous Epithelial 0-3 HPF (0-3); Urobilinogen Normal mg/dL (Less than 2); WBC/HPF Greater than 50 HPF (0-3); pH, Urine 7.5 (5.0-9.0)
[2020-09-02 15:21] LABS: ALT (SGPT) 7 U/L (8-55); AST (SGOT) 14 U/L (5-34); Albumin 1.8 g/dL (3.4-4.8); Alkaline Phosphatase 112 U/L (40-110); Anion Gap 14 mmol/L (10-20); BUN (Urea Nitrogen) 26 mg/dL (9.8-20.1); Bilirubin, Total Less than 0.2 mg/dL (0.2-1.2); Calc. Creatinine Clearance 0 mL/min (70-130); Calcium 7.4 mg/dL (7.8-10.44); Carbon Dioxide 17 mmol/L (23-31); Chloride 105 mmol/L (98-107); Globulin 2.9 g/dL (2.4-3.5); Glucose 119 mg/dL (80-115); Protein, Total 4.7 g/dL (6.0-8.3); Sodium 132 mmol/L (136-145)
--- NOTE | 2020-09-02 16:12 | CT ---
Exam: Head CT without contrast HISTORY: Altered mental status. COMPARISON: 03/01/2020 FINDINGS: Hemorrhage: No intraparenchymal hemorrhage or extra-axial hematoma. Brain parenchyma: Cortical thurston-white matter differentiation is preserved. No mass effect or midline shift. Basilar cisterns are patent.Chronic small vessel ischemic changes Ventricular system: Ventricles and sulci are patent and symmetric. Calvarium: Intact. Sinuses and mastoid air cells: Adequate aeration. IMPRESSION: No acute intracranial process.
--- NOTE | 2020-09-02 16:19 | RAD ---
Exam: Chest one view HISTORY:Dyspnea Comparison: 02/28/2020 FINDINGS: Cardiac silhouette: Normal Aorta: Unremarkable Pulmonary vessels: Normal Costophrenic angles: Clear LUNGS: No masses or consolidation. Pneumothorax: None Osseous abnormalities: None IMPRESSION: No acute cardiopulmonary process.
[2020-09-02] MEDS ORDERED: Piperacillin/Tazobactam 4.5 GM VIAL ONE (16:44)
--- NOTE | 2020-09-02 16:55 | CT ---
Exam: Abdomen CT without contrast Pelvic CT without contrast HISTORY: Pain COMPARISON: 07/15/2020 FINDINGS: Abdomen CT: Lung bases:Minimal atelectasis and scarring Heart size: Normal heart size. No significant pericardial fluid Aorta: Atherosclerotic. No periaortic fat stranding. Solid organs: Limited evaluation by the lack of IV contrast. Grossly no solid organ abnormality. Lymph nodes: No gastrohepatic, retrocrural or periportal lymphadenopathy Gallbladder: Surgically absent Mesentery: No mass, lymphadenopathy, free air or free fluid Kidneys: Bilaterally, no hydronephrosis, nephrolithiasis or perinephric fat stranding. Bilateral uret ers have a normal caliber. No hydroureter, periureteral fat stranding or ureterolithiasis. Alimentary canal: Limited evaluation by the lack of oral contrast. No evidence of bowel obstruction. Normal ileocecal junction. Normal caliber appendix. Scattered fecal material in a nondistended, nondilated colon. There is mucosal thickening involving the descending colon and sigmoid colon. Abdominal wall: Edema suggesting mild anasarca. CT PELVIS: No mass, lymphadenopathy or free air. There is stranding of the presacral fat. Small amount of free f luid in the pelvis. Surgically absent uterus Urinary bladder: Decompressed due to Pulido catheter. Osseous structures: No lytic or blastic lesions IMPRESSION: 1. Left hemicolon bowel wall thickening and mild inflammatory changes of the adjacent mesentery. Jean-Pierre elate for infectious, inflammatory or ischemic colitis. 2. No evidence of active uropathy. 3. Mild anasarca.
--- NOTE | 2020-09-02 17:39 | PDOC.HHP ---
Hospitalist HPI - History of Present Illness Altered mental status History of Present Illness: 60-year-old female who lives at [facility], normally patient remains alert and oriented x4, but for last couple of days patient was more confused, as per report patient was saying odd phrases, nurse called patient and the patient reported that that this is not normal for her, patient was found with UTI and she was started on antibiotic therapy with Levaquin yesterday, she has chronic indwelling Pulido catheter, patient is mostly bedbound and she has neurogenic bladder requiring Pulido catheter, no associated nausea or vomiting, no fever, patient has recent history of COVID-19 infection which she completely recovered. Today in the emergency room CT brain was negative for any acute process, chest x-ray was normal, CT abdomen and pelvis reported as colitis, ED Course: In the emergency room patient is given IV fluid 1 L, Zosyn 4.5 g, tramadol 50 mg Hospitalist ROS - Review of Systems ROS unobtainable: due to mental status - Medication Medications: Home medication Medication Instructions Recorded Confirmed Type tiZANidine HCl [Zanaflex] 4 mg PO Q8HR 10/29/19 02/28/20 History Oxybutynin [Ditropan] 5 mg PO TID 10/30/19 03/03/20 History L. Acidophilus/L.bulgaricus 1 each PO TID #30 tab.chew 02/04/20 02/28/20 Rx [Lactinex Chewable] Bacitracin [Bacitracin Zinc 2 pk TOP BID pk 03/09/20 Rx Ointment] Cholecalciferol (Vitamin D3) 400 units PO DAILY tab 03/09/20 Rx [Vitamin D3] Enoxaparin Sodium [Lovenox] 40 mg SC 0900 syringe 03/09/20 Rx Furosemide [Lasix] 40 mg PO DAILY tab 03/09/20 Rx Lisinopril [Zestril] 40 mg PO DAILY tab 03/09/20 Rx Multivit, Therapeutic [Theragran] 1 tab PO DAILY tab 03/09/20 Rx Pantoprazole [Protonix] 40 mg PO DAILY #30 tab 03/09/20 Rx Polyethylene Glycol 3350 [Miralax] 17 gm PO DAILY pk 03/09/20 Rx Spironolactone [Aldactone] 50 mg PO DAILY tab 03/09/20 Rx Allergies sulfamethoxazole Allergy (Verified 02/28/20 22:41) Sulfa (Sulfonamide Antibiotics) Adverse Reaction (Intermediate, Verified 02/28/20 22:41) Nausea CODE STATUS full code Hospitalist History - Past Medical History Other Medical History: Recurrent UTI Diabetes type 2 Chronic low back pain Hypertension History of Covid infection 3 weeks ago and recovered IBS - Past Surgical History Other Surgical History: L4-L5 fusion Cholecystectomy Hysterectomy Bladder biopsy Left hip fracture repair after falling 2019 Cystoscopy Scalp surgery Past psychiatric history anxiety and depression - Family History Other Family History: No strong family history of premature coronary artery disease stroke or cancer - Social History Other Social History: Patient lives at [facility], no history of tobacco alcohol illicit drug abuse - Exam General Appearance: NAD, ill appearing Eye: PERRL, anicteric sclera ENT: normocephalic atraumatic, no oropharyngeal lesions Neck: supple, symmetric, no JVD, no thyromegaly Heart: RRR, no murmur, no gallops, no rubs Respiratory: no wheezes, no rales, no ronchi Gastrointestinal: soft, non-distended, normal bowel sounds Extremities: no cyanosis, no clubbing Skin: normal turgor, no lesions Neurological: no focal deficits Musculoskeletal: diffuse muscle atrophy Psychiatric: normal affect Hospitalist Results - Labs Result Diagrams: 09/02/20 14:45 09/02/20 14:45 Lab results: WBC 9.2 thou/uL (4.8-10.8) 09/02/20 14:45 Hgb 9.7 g/dL (12.0-16.0) L 09/02/20 14:45 Hct 29.1 % (36.0-47.0) L 09/02/20 14:45 MCV 96.7 fL (78.0-98.0) 09/02/20 14:45 Plt Count 266 thou/uL (130-400) 09/02/20 14:45 Neutrophils % 80.8 % (42.0-75.0) H 09/02/20 14:45 Sodium 132 mmol/L (136-145) L 09/02/20 14:45 Potassium 4.0 mmol/L (3.5-5.1) 09/02/20 14:45 Chloride 105 mmol/L (98-107) 09/02/20 14:45 Carbon Dioxide 17 mmol/L (23-31) L 09/02/20 14:45 BUN 26 mg/dL (9.8-20.1) H 09/02/20 14:45 Creatinine 1.15 mg/dL (0.6-1.1) H 09/02/20 14:45 Glucose 119 mg/dL (80-115) H 09/02/20 14:45 Calcium 7.4 mg/dL (7.8-10.44) L 09/02/20 14:45 Total Bilirubin Less than 0.2 mg/dL (0.2-1.2) L 09/02/20 14:45 AST 14 U/L (5-34) 09/02/20 14:45 ALT 7 U/L (8-55) L 09/02/20 14:45 Alkaline Phosphatase 112 U/L (40-110) H 09/02/20 14:45 Troponin I 0.014 ng/mL (< 0.028) 09/02/20 14:45 Serum Total Protein 4.7 g/dL (6.0-8.3) L 09/02/20 14:45 Albumin 1.8 g/dL (3.4-4.8) L 09/02/20 14:45 Urine Ketones Negative mg/dL (Negative) 09/02/20 14:36 Urine Blood 2+ (Negative) A 09/02/20 14:36 Urine Nitrite Negative (Negative) 09/02/20 14:36 Ur Leukocyte Esterase 500 Catalino/uL (Negative) A 09/02/20 14:36 Urine RBC 11-20 HPF (0-3) A 09/02/20 14:36 Urine WBC Greater than 50 HPF (0-3) A 09/02/20 14:36 Ur Squamous Epith Cells 0-3 HPF (0-3) 09/02/20 14:36 Urine Bacteria 4+ HPF (None Seen) A 09/02/20 14:36 - EKG Interpretation EK lead EKG shows normal sinus rhythm, Rate (beats per minute): 88, with no ectopics, with premature atrial complexes, Conduction normal, ST segments normal, T waves normal, [place] normal. - Radiology Interpretation Other Status: image reviewed by me Additional Comment: CT Stone Protocol Observe DT: Sat Sep 02, 2020 15:13, STONE Exam: Abdomen CT without contrast Pelvic CT without contrast HISTORY: Pain COMPARISON: 07/15/2020 FINDINGS: Abdomen CT: Lung bases:Minimal atelectasis and scarring Heart size: Normal heart size. No significant pericardial fluid Aorta: Atherosclerotic. No periaortic fat stranding. Solid organs: Limited evaluation by the lack of IV contrast. Grossly no solid organ abnormality. Lymph nodes: No gastrohepatic, retrocrural or periportal lymphadenopathy Gallbladder: Surgically absent Mesentery: No mass, lymphadenopathy, free air or free fluid Kidneys: Bilaterally, no hydronephrosis, nephrolithiasis or perinephric fat stranding. Bilateral uret ers have a normal caliber. No hydroureter, periureteral fat stranding or ureterolithiasis. Alimentary canal: Limited evaluation by the lack of oral contrast. No evidence of bowel obstruction. Normal ileocecal junction. Normal caliber appendix. Scattered fecal material in a nondistended, nondilated colon. There is mucosal thickening involving the descending colon and sigmoid colon. Abdominal wall: Edema suggesting mild anasarca. CT PELVIS: No mass, lymphadenopathy or free air. There is stranding of the presacral fat. S [place] amount of free f luid in the pelvis. Surgically absent uterus Urinary bladder: Decompressed due to Pulido catheter. Osseous structures: No lytic or blastic lesions IMPRESSION: 1. Left hemicolon bowel wall thickening and mild inflammatory changes of the adjacent mesentery. Jean-Pierre elate for infectious, inflammatory or ischemic colitis. 2. No evidence of active uropathy. 3. Mild anasarca. . RADIOLOGY XR Chest 1 View Portable Observe DT: Sat Sep 02, 2020 14:36, CXRP Exam: Chest one view HISTORY:Dyspnea Comparison: 02/28/2020 FINDINGS: Cardiac silhouette: Normal Aorta: Unremarkable Pulmonary vessels: Normal Costophrenic angles: Clear LUNGS: No masses or consolidation. Pneumothorax: None Osseous abnormalities: None IMPRESSION: No acute cardiopulmonary process. . RADIOLOGY CT Brain WO Con Observe DT: Sat Sep 02, 2020 14:35, BR Exam: Head CT without contrast HISTORY: Altered mental status. COMPARISON: 03/01/2020 FINDINGS: Hemorrhage: No intraparenchymal hemorrhage or extra-axial hematoma. Brain parenchyma: Cortical thurston-white matter differentiation is preserved. No mass effect or midline shift. Basilar cisterns are patent.Chronic small vessel ischemic changes Ventricular system: Ventricles and sulci are patent and symmetric. Calvarium: Intact. Sinuses and mastoid air cells: Adequate aeration. IMPRESSION: No acute intracranial process. Hospitalist H&P A/P - Problem (1) Acute metabolic encephalopathy Code(s): G93.41 - METABOLIC ENCEPHALOPATHY Status: Acute Assessment and Plan: Patient has hyponatremia, mild acute kidney injury, patient has UTI, she has colitis all this contributing to her altered mental status, her CT brain is negative, (2) Catheter-associated urinary tract infection Code(s): T83.511A - I/I REACT D/T INDWELLING URETHRAL CATHETER, INIT; N39.0 - URINARY TRACT INFECTION, SITE NOT SPECIFIED Status: Acute Qualifiers: Indwelling urinary catheter type: indwelling urethral catheter Assessment and Plan: Patient has recurrent UTI, she has chronic indwelling Pulido catheter, based on previous culture and sensitivity result we will continue with Zosyn, (3) Colitis Code(s): K52.9 - NONINFECTIVE GASTROENTERITIS AND COLITIS, UNSPECIFIED Status: Acute Assessment and Plan: Patient has previous history of C. difficile, currently CT scan finding suspicious for ischemic versus inflammatory versus infectious etiology for colitis, will check stool for C. difficile to rule out that possibility, probiotics will be given, patient is already on empiric antibiotic therapy with Zosyn (4) Anxiety and depression Code(s): F41.9 - ANXIETY DISORDER, UNSPECIFIED; F32.9 - MAJOR DEPRESSIVE DISORDER, SINGLE EPISODE, UNSPECIFIED Status: Chronic (5) Chronic back pain Code(s): M54.9 - DORSALGIA, UNSPECIFIED; G89.29 - OTHER CHRONIC PAIN Status: Chronic Qualifiers: Back pain location: low back pain (6) DM2 (diabetes mellitus, type 2) Status: Chronic Qualifiers: Diabetes mellitus chcf insulin use: with rat exterminator use Diabetes mellitus complication status: with kidney complications Diabetes mellitus complication detail: with nephropathy Qualified Code(s): E11.21 - Type 2 diabetes mellitus with diabetic nephropathy; Z79.4 - USP (current) use of insulin (7) Hypertension Code(s): I10 - ESSENTIAL (PRIMARY) HYPERTENSION Status: Chronic Qualifiers: Hypertension type: essential hypertension Qualified Code(s): I10 - Essential (primary) hypertension (8) Macrocytic anemia Code(s): D53.9 - NUTRITIONAL ANEMIA, UNSPECIFIED Status: Chronic (9) Physical deconditioning Code(s): R53.81 - OTHER MALAISE Status: Chronic - Plan Plan: Plan Patient will be admitted to medical floor Continue Zosyn, will add probiotics Florastor 50 mg twice daily Check stool for C. difficile Continue gentle IV fluid Repeat labs tomorrow Insulin as per sliding scale protocol Per shelter medication will be reconciled DVT prophylaxis Lovenox 40 mg subcu daily GI prophylaxis Pepcid 20 mg p.o. twice daily CODE STATUS patient is full code Disposition plan based on clinical course.
[2020-09-02] MEDS ORDERED: Phenazopyridine HCl 97.5 MG TABLET PO SCH (19:30)
[2020-09-02] MEDS ORDERED: Phenazopyridine HCl 100 MG TAB PO SCH (19:45)
[2020-09-02] MEDS ORDERED: Loratadine 10 MG TAB PO PRN (20:20)
[2020-09-02] MEDS ORDERED: Ondansetron ODT 4 MG TAB PO PRN (20:20)
[2020-09-02] MEDS ORDERED: Senokot S 8.6-50 MG TAB PO PRN (20:20)
[2020-09-02] MEDS ORDERED: Dextrose 5% in Water 1,000 ML IV PRN (20:20)
[2020-09-02] MEDS ORDERED: Zolpidem Tartrate 5 MG TAB PO PRN (20:20)
[2020-09-02] MEDS ORDERED: Dextrose 50% Abboject 50 ML SYRINGE SLOW IVP PRN (20:20)
[2020-09-02] MEDS ORDERED: Diabetic Tussin 200 MG/10 ML UDCUP PO PRN (20:20)
[2020-09-02] MEDS ORDERED: Bisacodyl 10 MG SUPP PR PRN (20:20)
[2020-09-02] MEDS ORDERED: hydrALAZINE 20 MG/ML VIAL SLOW IVP PRN (20:20)
[2020-09-02] MEDS ORDERED: Guaifenesin DM 100-10/5 ML UDCUP PO PRN (20:20)
[2020-09-02] MEDS ORDERED: Acetaminophen 325 MG TAB PO PRN (20:20)
[2020-09-02] MEDS ORDERED: Cepastat Lozenges 1 LOZ PO PRN (20:20)
[2020-09-02] MEDS ORDERED: Calcium Carbonate 500 MG ChewTAB PO PRN (20:20)
[2020-09-02] MEDS ORDERED: Ondansetron PF 4 MG/2 ML Vial IVP PRN (20:20)
[2020-09-02] MEDS ORDERED: HumaLOG 300 UNITS/3 ML VIAL SC PRN ×2 (20:20)
[2020-09-02] MEDS ORDERED: Sodium Chloride 0.65% Nasal 44 ML BOT EA NARE PRN (20:20)
[2020-09-02 20:23] VITALS: BMI 19.5
[2020-09-02] MEDS: HYDROcodone/Acetaminophen 5/325 mg Tablet PO PRN (20:47)
[2020-09-02] MEDS: Famotidine 20 MG TAB PO SCH (20:47)
[2020-09-02] MEDS: Sodium Chloride 0.9% 1,000 ML IV SCH (20:48)
[2020-09-02] MEDS: Piperacillin/Tazobactam 3.375 GM in Sodium Chloride 0.9% 100 ML IVPB SCH (20:48)
[2020-09-03] MEDS: Piperacillin/Tazobactam 3.375 GM in Sodium Chloride 0.9% 100 ML IVPB SCH ×4 (02:55→20:46)
[2020-09-03 05:54] LABS: #Basophils 0.1 thou/uL (0.0-0.2); #Eosinphils 0.1 thou/uL (0.0-0.7); #Lymphocytes 1.3 thou/uL (1.20-3.40); #Monocytes 0.8 thou/uL (0.11-0.59); #Neutrophils 5.4 thou/uL (1.40-6.50); %Basophils 0.8 % (0.0-1.0); %Eosinophils 1.4 % (0.0-10.0); %Lymphocytes 16.6 % (21.0-51.0); %Monocytes 10.1 % (0.0-10.0); %Neutrophils 71.2 % (42.0-75.0); Mean Corpuscular HGB CONC 32.2 g/dL (32.0-36.0); Mean Corpuscular Hemoglobin 30.9 pg (27.0-31.0); Mean Platelet Volume 7.1 fL (7.4-10.4); Platelet Count 290 thou/uL (130-400); Red Blood Cell (RBC) Count 2.58 mill/uL (4.20-5.40); White Blood Cell (WBC) Count 7.6 thou/uL (4.8-10.8)
[2020-09-03 06:18] LABS: ALT (SGPT) 8 U/L (8-55); AST (SGOT) 12 U/L (5-34); Albumin 1.7 g/dL (3.4-4.8); Alkaline Phosphatase 91 U/L (40-110); Anion Gap 12 mmol/L (10-20); BUN (Urea Nitrogen) 24 mg/dL (9.8-20.1); Bilirubin, Total Less than 0.2 mg/dL (0.2-1.2); Calc. Creatinine Clearance 36 mL/min (70-130); Carbon Dioxide 19 mmol/L (23-31); Chloride 111 mmol/L (98-107); Globulin 2.4 g/dL (2.4-3.5); Glucose 87 mg/dL (80-115); Potassium 3.5 mmol/L (3.5-5.1); Protein, Total 4.1 g/dL (6.0-8.3); Sodium 138 mmol/L (136-145)
[2020-09-03 08:05] LABS: Glucose 87 mg/dL (80-115)
[2020-09-03] MEDS ORDERED: FLU VACC QS2020-21(6MOS UP)/PF 60 MCG/0.5 ML SYRINGE IM ONE (09:00)
[2020-09-03] MEDS ORDERED: Saccharomyces boulardii 250 MG CAP PO SCH (09:00)
[2020-09-03] MEDS ORDERED: Enoxaparin Sodium 40 MG/0.4 ML SYRINGE SC SCH (09:00)
[2020-09-03] MEDS: Famotidine 20 MG TAB PO SCH (09:18)
[2020-09-03] MEDS: HYDROcodone/Acetaminophen 5/325 mg Tablet PO PRN ×3 (10:33→20:49)
[2020-09-03] MEDS: Sodium Chloride 0.9% 1,000 ML IV SCH (10:35)
[2020-09-03] MEDS ORDERED: traMADol HCl 50 MG TAB PO PRN (11:54)
[2020-09-03] MEDS ORDERED: Melatonin 3 MG TAB PO PRN (11:54)
[2020-09-03] MEDS ORDERED: Simethicone Chewable 80 MG TAB PO PRN (11:54)
[2020-09-03] MEDS ORDERED: Dicyclomine 20 MG TAB PO PRN (11:54)
[2020-09-03] MEDS ORDERED: ALPRAZolam 0.25 MG TAB PO PRN (11:54)
[2020-09-03] MEDS ORDERED: Docusate 100 MG CAP PO PRN (11:54)
[2020-09-03 11:57] LABS: Glucose 127 mg/dL (80-115)
--- NOTE | 2020-09-03 11:58 | PDOC.HOSPP ---
- Subjective Encounter Date: 09/03/20 Encounter Time: 08:15 Subjective: Patient seen and examined bedside today, no overnight event, no new complaint, patient feels relatively better than yesterday, - Objective Vital Signs & Weight: Vital Signs (12 hours) Temp Pulse Resp BP Pulse Ox 09/03/20 11:39 98.2 F 81 15 181/95 H 99 09/03/20 08:00 99 09/03/20 07:54 98.0 F 81 16 175/63 H 99 09/03/20 00:20 98.6 F 90 16 152/75 H 99 Weight Weight 107 lb 1.6 oz I&O: 09/02/20 09/03/20 09/04/20 06:59 06:59 06:59 Intake Total 360 Balance 360 Result Diagrams: 09/03/20 05:35 09/03/20 07:34 Additional Labs: Accuchecks 09/03/20 09/03/20 09/02/20 11:42 05:36 20:35 POC Glucose 128 H 82 79 Hospitalist ROS - Review of Systems Constitutional: reports: weakness. denies: fever, chills, sweats, malaise, other Respiratory: denies: cough, dry, shortness of breath, hemoptysis, SOB with excertion, pleuritic pain, sputum, wheezing, other Cardiovascular: denies: chest pain, palpitations, orthopnea, paroxysmal noc. dyspnea, edema, light headedness, other Gastrointestinal: denies: nausea, vomiting, abdominal pain, diarrhea, constipation, melena, hematochezia, other Genitourinary: denies: dysuria, frequency, incontinence, hematuria, retention, other Musculoskeletal: denies: neck pain, shoulder pain, arm pain, back pain, hand pain, leg pain, foot pain, other - Medication Medications: Active Medications Generic Name Dose Route Start Last Admin Trade Name Freq PRN Reason Stop Dose Admin Hydrocodone Bitart/Acetaminophen 1 tab 09/02/20 20:20 09/03/20 10:33 Hydrocodone/Acetaminophen 5/325 Mg Tablet PO 1 tab Q4H PRN Administration Moderate Pain (4-6) Enoxaparin Sodium 40 mg 09/03/20 09:00 09/03/20 09:15 Enoxaparin Sodium 40 Mg/0.4 Ml Syringe SC 40 mg 0900 DEVORA Administration Famotidine 20 mg 09/02/20 21:00 09/03/20 09:18 Famotidine 20 Mg Tab PO 20 mg BID DEVORA Administration Sodium Chloride 1,000 mls @ 75 mls/hr 09/02/20 20:20 09/03/20 10:35 Normal Saline 0.9% IV 1,000 mls .[id number] DEVORA Administration Piperacillin Sod/Tazobactam 100 mls @ 200 mls/hr 09/02/20 21:00 09/03/20 09:15 Sod 3.375 gm/ Sodium Chloride IVPB 100 mls 0300,0900,1500,2100 DEVORA Administration Saccharomyces Boulardii 250 mg 09/03/20 09:00 09/03/20 09:18 Saccharomyces Boulardii 250 Mg Cap PO 250 mg DAILY DEVORA Administration Zolpidem Tartrate 5 mg 09/02/20 20:20 09/03/20 01:20 Zolpidem Tartrate 5 Mg Tab PO 5 mg HSPRN PRN Administration Insomnia - Exam General Appearance: NAD, ill appearing Eye: PERRL, anicteric sclera ENT: normocephalic atraumatic, no oropharyngeal lesions Neck: supple, symmetric, no JVD, no thyromegaly Heart: RRR, no murmur, no gallops, no rubs Respiratory: no wheezes, no rales, no ronchi Gastrointestinal: soft, non-tender, non-distended, normal bowel sounds Extremities: no clubbing, no edema Skin: normal turgor, no lesions Neurological: no focal deficits Musculoskeletal: normal tone, generalized weakness, diffuse muscle atrophy Psychiatric: normal affect, normal behavior Hosp A/P (1) Acute metabolic encephalopathy Code(s): G93.41 - METABOLIC ENCEPHALOPATHY Status: Resolved (2) Catheter-associated urinary tract infection Code(s): T83.511A - I/I REACT D/T INDWELLING URETHRAL CATHETER, INIT; N39.0 - URINARY TRACT INFECTION, SITE NOT SPECIFIED Status: Acute Qualifiers: Indwelling urinary catheter type: indwelling urethral catheter (3) Colitis Code(s): K52.9 - NONINFECTIVE GASTROENTERITIS AND COLITIS, UNSPECIFIED Status: Acute (4) Anxiety and depression Code(s): F41.9 - ANXIETY DISORDER, UNSPECIFIED; F32.9 - MAJOR DEPRESSIVE DISORDER, SINGLE EPISODE, UNSPECIFIED Status: Chronic (5) Chronic back pain Code(s): M54.9 - DORSALGIA, UNSPECIFIED; G89.29 - OTHER CHRONIC PAIN Status: Chronic Qualifiers: Back pain location: low back pain (6) DM2 (diabetes mellitus, type 2) Status: Chronic Qualifiers: Diabetes mellitus superintendent terminal insulin use: with superintendent terminal use Diabetes mellitus complication status: with kidney complications Diabetes mellitus complication detail: with nephropathy Qualified Code(s): E11.21 - Type 2 diabetes mellitus with diabetic nephropathy; 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 of 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 (7) Hypertension Code(s): I10 - ESSENTIAL (PRIMARY) HYPERTENSION Status: Chronic Qualifiers: Hypertension type: essential hypertension Qualified Code(s): I10 - Essenti al (primary) hypertension (8) Macrocytic anemia Code(s): D53.9 - NUTRITIONAL ANEMIA, UNSPECIFIED Status: Chronic (9) Physical deconditioning Code(s): R53.81 - OTHER MALAISE Status: Chronic (10) Protein-calorie malnutrition, severe Code(s): E43 - UNSPECIFIED SEVERE PROTEIN-CALORIE MALNUTRITION Status: Chronic - Plan old records reviewed/req, continue antibiotics Continue Zosyn Continue IV fluid Her home medication reconciled Follow-up on culture results We will discontinue IV fluid tomorrow' Nutritional support
[2020-09-03] MEDS: hydrALAZINE 25 MG TAB PO SCH ×2 (14:40→20:46)
[2020-09-03] MEDS ORDERED: hydrALAZINE 25 MG TAB PO SCH (15:00)
[2020-09-04] MEDS: Piperacillin/Tazobactam 3.375 GM in Sodium Chloride 0.9% 100 ML IVPB SCH (03:02)
[2020-09-04] MEDS: Sodium Chloride 0.9% 1,000 ML IV SCH (03:02)
[2020-09-04] MEDS: HYDROcodone/Acetaminophen 5/325 mg Tablet PO PRN ×3 (04:55→19:11)
[2020-09-04] MEDS: Famotidine 20 MG TAB PO SCH (09:35)
[2020-09-04] MEDS: Cholecalciferol (Vitamin D3) 400 UNITS TAB PO SCH (09:35)
[2020-09-04] MEDS: Lisinopril 20 MG TAB PO SCH (09:35)
[2020-09-04] MEDS: Saccharomyces boulardii 250 MG CAP PO SCH ×2 (09:36→20:57)
[2020-09-04] MEDS: hydrALAZINE 25 MG TAB PO SCH ×3 (09:36→20:57)
[2020-09-04] MEDS: Escitalopram Oxalate 10 mg Tablet PO SCH (09:38)
[2020-09-04] MEDS: Polyethylene Glycol 3350 17 GM Packet PO SCH (09:38)
[2020-09-04] MEDS: Enoxaparin Sodium 30 MG/0.3 ML SYRINGE SC SCH (09:38)
[2020-09-04] MEDS: Nitrofurantoin Monohyd/M-Cryst 100 MG CAP PO SCH ×2 (09:41→20:57)
--- NOTE | 2020-09-04 10:52 | PDOC.HOSPP ---
- Subjective Encounter Date: 09/04/20 Encounter Time: 07:45 Subjective: Patient seen and examined. No new complaints. No overnight events - Objective Vital Signs & Weight: Vital Signs (12 hours) Temp Pulse Resp BP BP Pulse Ox 09/04/20 08:00 98.2 F 90 20 111/60 99 09/04/20 05:10 88 183/91 H 09/04/20 04:44 98.6 F 88 16 183/91 H 99 09/04/20 00:00 98.2 F 85 16 163/84 H 98 Weight Weight 107 lb 1.6 oz I&O: 09/03/20 09/04/20 09/05/20 06:59 06:59 06:59 Intake Total 2460 Output Total 675 Balance 1785 Result Diagrams: 09/03/20 05:35 09/03/20 11:05 Additional Labs: Accuchecks 09/04/20 09/03/20 09/03/20 04:49 20:31 16:24 POC Glucose 114 H 202 H 131 H 09/03/20 11:42 POC Glucose 128 H Hospitalist ROS - Review of Systems Constitutional: reports: weakness. denies: fever, chills, sweats, malaise, other ENT: denies: ear pain, ear discharge, nose pain, nose discharge, nose congestion, mouth pain, mouth swelling, throat pain, throat swelling, other Respiratory: denies: cough, dry, shortness of breath, hemoptysis, SOB with excertion, pleuritic pain, sputum, wheezing, other Cardiovascular: denies: chest pain, palpitations, orthopnea, paroxysmal noc. dyspnea, edema, light headedness, other Gastrointestinal: denies: nausea, vomiting, abdominal pain, diarrhea, constipation, melena, hematochezia, other Genitourinary: denies: dysuria, frequency, incontinence, hematuria, retention, other Musculoskeletal: denies: neck pain, shoulder pain, arm pain, back pain, hand pain, leg pain, foot pain, other - Medication Medications: Active Medications Generic Name Dose Route Start Last Admin Trade Name Freq PRN Reason Stop Dose Admin Hydrocodone Bitart/Acetaminophen 1 tab 09/02/20 20:20 09/04/20 09:56 Hydrocodone/Acetaminophen 5/325 Mg Tablet PO 1 tab Q4H PRN Administration Moderate Pain (4-6) Cholecalciferol 400 units 09/04/20 09:00 09/04/20 09:35 Cholecalciferol (Vitamin D3) 400 Units Tab PO 400 units DAILY DEVORA Administration Docusate Sodium 100 mg 09/03/20 11:54 09/03/20 20:46 Docusate 100 Mg Cap PO 100 mg BID PRN Administration Constipation Enoxaparin Sodium 30 mg 09/04/20 09:00 09/04/20 09:38 Enoxaparin Sodium 30 Mg/0.3 Ml Syringe SC 30 mg 09 DEVORA Administration Escitalopram Oxalate 10 mg 09/04/20 09:00 09/04/20 09:38 Escitalopram Oxalate 10 Mg Tablet PO 10 mg DAILY DEVORA Administration Famotidine 20 mg 09/04/20 09:00 09/04/20 09:35 Famotidine 20 Mg Tab PO 20 mg DAILY DEVORA Administration Hydralazine HCl 10 mg 09/02/20 20:20 09/04/20 05:10 Hydralazine 20 Mg/Ml Vial SLOW IVP 10 mg Q4H PRN Administration SBP > 180 and HR < 70 Hydralazine HCl 25 mg 09/03/20 15:00 09/04/20 09:36 Hydralazine 25 Mg Tab PO 25 mg TID DEVORA Administration Lisinopril 20 mg 09/04/20 09:00 09/04/20 09:35 Lisinopril 20 Mg Tab PO 20 mg DAILY DEVORA Administration Nitrofurantoin Macrocrystals 100 mg 09/04/20 09:00 09/04/20 09:41 Nitrofurantoin Monohyd/M-Cryst 100 Mg Cap PO 100 mg BID DEVORA Administration Polyethylene Glycol 17 gm 09/04/20 09:00 09/04/20 09:38 Polyethylene Glycol 3350 17 Gm Packet PO 17 gm DAILY [facility] Administration Saccharomyces Boulardii 250 mg 09/04/20 09:00 09/04/20 09:36 Saccharomyces Boulardii 250 Mg Cap PO 250 mg BID DEVORA Administration Senna/Docusate Sodium 2 tab 09/02/20 20:20 09/03/20 20:46 Senokot S 8.6-50 Mg Tab PO 2 tab BID PRN Administration Constipation Zolpidem Tartrate 5 mg 09/02/20 20:20 09/03/20 01:20 Zolpidem Tartrate 5 Mg Tab PO 5 mg HSPRN PRN Administration Insomnia - Exam General Appearance: NAD, awake alert Eye: PERRL, anicteric sclera ENT: normocephalic atraumatic, no oropharyngeal lesions Neck: supple, symmetric, no JVD, no thyromegaly Heart: RRR, no murmur, no gallops, no rubs Respiratory: no wheezes, no rales, no ronchi Gastrointestinal: soft, non-tender, non-distended, normal bowel sounds Extremities: no cyanosis, no clubbing Skin: normal turgor, no lesions Neurological: no new deficit Musculoskeletal: generalized weakness, diffuse muscle atrophy Psychiatric: normal affect, normal behavior Hosp A/P (1) Acute metabolic encephalopathy Code(s): G93.41 - METABOLIC ENCEPHALOPATHY Status: Resolved (2) Catheter-associated urinary tract infection Code(s): T83.511A - I/I REACT D/T INDWELLING URETHRAL CATHETER, INIT; N39.0 - URINARY TRACT INFECTION, SITE NOT SPECIFIED Status: Acute Qualifiers: Indwelling urinary catheter type: indwelling urethral catheter (3) Colitis Code(s): K52.9 - NONINFECTIVE GASTROENTERITIS AND COLITIS, UNSPECIFIED Status: Acute Plan: C. difficile colitis present on admission (4) Anxiety and depression Code(s): F41.9 - ANXIETY DISORDER, UNSPECIFIED; F32.9 - MAJOR DEPRESSIVE DISORDER, SINGLE EPISODE, UNSPECIFIED Status: Chronic (5) Chronic back pain Code(s): M54.9 - DORSALGIA, UNSPECIFIED; G89.29 - OTHER CHRONIC PAIN Status: Chronic Qualifiers: Back pain location: low back pain (6) DM2 (diabetes mellitus, type 2) Status: Chronic Qualifiers: Diabetes mellitus fci insulin use: with salvage determiner use Diabetes mellitus complication status: with kidney complications Diabetes mellitus complication detail: with nephropathy Qualified Code(s): E11.21 - Type 2 diabetes mellitus with diabetic nephropathy; 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 (7) Hypertension Code(s): I10 - ESSENTIAL (PRIMARY) HYPERTENSION Status: Chronic Qualifiers: Hypertension type: essential hypertension Qualified Code(s): I10 - Essential (primary) hypertension (8) Macrocytic anemia Code(s): D53.9 - NUTRITIONAL ANEMIA, UNSPECIFIED Status: Chronic (9) Physical deconditioning Code(s): R53.81 - OTHER MALAISE Status: Chronic (10) Protein-calorie malnutrition, severe Code(s): E43 - UNSPECIFIED SEVERE PROTEIN-CALORIE MALNUTRITION Status: Chronic (11) Decubitus ulcer Code(s): L89.90 - PRESSURE ULCER OF UNSPECIFIED SITE, UNSPECIFIED STAGE Status: Acute Plan: Please see wound care note finding for more detailed description, decubitus ulcer was present on admission - Plan old records reviewed/req, plan discussed w/ family, jacinto catheter, continue antibiotics, psych social worker, DVT proph w/lovenox Today discontinue Zosyn Discontinue IV fluid Continue to provide nutritional support Change antibiotic to Macrobid 100 mg twice daily based on culture result Add oral vancomycin 125 mg every 6 hourly Expecting discharge in next 24 hours Wound care
[2020-09-04] MEDS: Vancomycin HCl 25 MG/ML Oral PO SCH ×2 (12:35→17:08)
[2020-09-05] MEDS: Vancomycin HCl 25 MG/ML Oral PO SCH ×3 (00:09→11:52)
[2020-09-05] MEDS: HYDROcodone/Acetaminophen 5/325 mg Tablet PO PRN ×2 (03:00→13:58)
[2020-09-05] MEDS: Cholecalciferol (Vitamin D3) 400 UNITS TAB PO SCH (09:10)
[2020-09-05] MEDS: Lisinopril 20 MG TAB PO SCH (09:10)
[2020-09-05] MEDS: hydrALAZINE 25 MG TAB PO SCH ×2 (09:11→13:58)
[2020-09-05] MEDS: Saccharomyces boulardii 250 MG CAP PO SCH (09:11)
[2020-09-05] MEDS: Nitrofurantoin Monohyd/M-Cryst 100 MG CAP PO SCH (09:11)
[2020-09-05] MEDS: Escitalopram Oxalate 10 mg Tablet PO SCH (09:11)
[2020-09-05] MEDS: Famotidine 20 MG TAB PO SCH (09:11)
[2020-09-05] MEDS: Enoxaparin Sodium 30 MG/0.3 ML SYRINGE SC SCH (09:11)
[2020-09-05] MEDS: Polyethylene Glycol 3350 17 GM Packet PO SCH (09:22)
--- NOTE | 2020-09-05 09:51 | PDOC.DS.DS ---
Provider - Provider Date of Admission: 09/02/20 17:46 Date of Discharge: 09/05/20 Admitting Provider: Mona Carter MD Primary Care Physician: OUT OF TOWN Course - Hospital Course Hospital Course: 60-year-old female who lives at group home, patient is mostly bedbound, patient has severe protein calorie malnutrition, patient has neurogenic bladder, she has chronic indwelling Jacinto catheter, lately patient was more altered and more lethargic, patient was found with the urinary tract infection, patient was treated with the catheter associated UTI, patient was complaining of diffuse abdominal discomfort so in the emergency room patient had CT abdomen and pelvis which showed findings suggestive of colitis, as patient has previous history of C. difficile colitis we did a stool for C. difficile and tested positive for antigen, patient was also found with a decubitus ulcer, wound care team was consulted, initially patient was given Zosyn for UTI and subsequently based on culture result be changed to Macrobid, once stool for C. difficile came back positive we started oral vancomycin. Patient has severe protein calorie malnutrition and we have provided nutritional support while in hospital, patient remained hemodynamically stable, her home medication regimen while in hospital, patient remained afebrile, today patient seen and examined bedside today and we are discharging her back to group home. Resuscitation Status: 09/02/20 18:17 Resuscitation Status Routine Resuscitation Status: FULL: Full Resuscitation - Labs Lab Results: 09/03/20 05:35 09/03/20 11:05 Microbiology - Entire Visit 09/02/20 14:36 Urine jacinto catheter Urine Culture - Preliminary Escherichia coli Gram Negative Andrew 09/04/20 00:15 Stool C. difficile GDH Antigen & Toxins - Final 09/04/20 00:15 Stool Clostridioides difficile Toxins A&B (PCR) - Final - Diagnostic Interpretation Other Status: image reviewed by me Additional comments: CT brain done on admission showed no acute intracranial process Chest x-ray done in the emergency room which showed no acute cardiopulmonary process CT abdomen and pelvis done in the emergency room which showed findings suggestive of left hemicolon bowel wall thickening and mild inflammatory changes, no evidence of uropathy, mild anasarca - Physical Exam Vitals: Vital Signs (12 hours) Temp Pulse Resp BP BP BP Pulse Ox 09/05/20 09:11 88 194/75 H 09/05/20 09:10 194/75 H 09/05/20 07:44 98.6 F 88 19 194/75 H 100 09/05/20 05:00 98.3 F 83 20 152/78 H 98 09/05/20 00:00 98.4 F 83 20 157/78 H 99 Weight Admit Weight 107 lb 1.6 oz Weight 107 lb 1.6 oz Physical Exam: The patient was seen and examined on the day of discharge. General patient is currently alert awake chronically ill no acute distress Head normocephalic atraumatic Neck supple no JVD no meningeal signs of irritation Lungs clear to auscultation without any rhonchi rales Cardiac S1-S2 regular, no murmur no gallop no rub Abdomen soft, bowel sounds present, no diffuse tenderness Extremity diffuse atrophy noted, no edema, Neurologic nonfocal examination Problem - Problem (1) Acute metabolic encephalopathy Code(s): G93.41 - METABOLIC ENCEPHALOPATHY Status: Resolved (2) Catheter-associated urinary tract infection Code(s): T83.511A - I/I REACT D/T INDWELLING URETHRAL CATHETER, INIT; N39.0 - URINARY TRACT INFECTION, SITE NOT SPECIFIED Status: Acute Qualifiers: Indwelling urinary catheter type: indwelling urethral catheter (3) Colitis Code(s): K52.9 - NONINFECTIVE GASTROENTERITIS AND COLITIS, UNSPECIFIED Status: Acute (4) Anxiety and depression Code(s): F41.9 - ANXIETY DISORDER, UNSPECIFIED; F32.9 - MAJOR DEPRESSIVE DISORDER, SINGLE EPISODE, UNSPECIFIED Status: Chronic (5) Chronic back pain Code(s): M54.9 - DORSALGIA, UNSPECIFIED; G89.29 - OTHER CHRONIC PAIN Status: Chronic Qualifiers: Back pain location: low back pain (6) DM2 (diabetes mellitus, type 2) Status: Chronic Qualifiers: Diabetes mellitus penitentiary insulin use: with penitentiary use Diabetes mellitus complication status: with kidney complications Diabetes mellitus complication detail: with nephropathy Qualified Code(s): E11.21 - Type 2 diabetes mellitus with diabetic nephropathy; 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 (7) Hypertension Code(s): I10 - ESSENTIAL (PRIMARY) HYPERTENSION Status: Chronic Qualifiers: Hypertension type: essential hypertension Qualified Code(s): I10 - Essential (primary) hypertension (8) Macrocytic anemia Code(s): D53.9 - NUTRITIONAL ANEMIA, UNSPECIFIED Status: Chronic (9) Physical deconditioning Code(s): R53.81 - OTHER MALAISE Status: Chronic (10) Protein-calorie malnutrition, severe Code(s): E43 - UNSPECIFIED SEVERE PROTEIN-CALORIE MALNUTRITION Status: Chronic (11) Decubitus ulcer Code(s): L89.90 - PRESSURE ULCER OF UNSPECIFIED SITE, UNSPECIFIED STAGE Status: Acute Plan - Discharge Medications Prescriptions: Vancomycin HCl [First Vancomycin] 125 mg PO Q6HR #280 ml Nitrofurantoin Monohyd/M-Cryst [Macrobid] 100 mg PO BID #14 cap Home Medications: Medication Instructions Recorded Confirmed Type Cholecalciferol (Vitamin D3) 400 units PO DAILY tab 03/09/20 09/03/20 Rx [Vitamin D3] Polyethylene Glycol 3350 [Miralax] 17 gm PO DAILY pk 03/09/20 09/03/20 Rx ALPRAZolam [Xanax] 0.25 mg PO BID PRN 09/03/20 09/03/20 History Calcium Carbonate [Tums] 2 tab PO Q6HR PRN 09/03/20 09/03/20 History Dicyclomine [Bentyl] 1 tab PO TID PRN 09/03/20 09/03/20 History Docusate [Colace] 100 mg PO BID PRN 09/03/20 09/03/20 History Ergocalciferol (Vitamin D2) 50,000 unit PO DAILY 09/03/20 09/03/20 History [Vitamin D2] Escitalopram Oxalate [Lexapro] 10 mg PO DAILY 09/03/20 09/03/20 History Furosemide [Lasix] 20 mg PO DAILY 09/03/20 09/03/20 History L. Acidophilus/L.bulgaricus 1 each PO BID 09/03/20 09/03/20 History [Lactinex Chewable] Lisinopril [Zestril] 20 mg PO DAILY 09/03/20 09/03/20 History Melatonin 3 mg PO HS PRN 09/03/20 09/03/20 History Simethicone [Mylicon Chewable] 80 mg PO PCHS PRN 09/03/20 09/03/20 History hydrALAZINE [Apresoline] 1 tab PO TID 09/03/20 09/03/20 History traMADol HCl [Tramadol HCl] 50 mg PO Q6HR PRN 09/03/20 09/03/20 History Nitrofurantoin Monohyd/M-Cryst 100 mg PO BID #14 cap 09/05/20 Rx [Macrobid] Vancomycin HCl [First Vancomycin] 125 mg PO Q6HR #280 ml 09/05/20 Rx Allergies: sulfamethoxazole Allergy (Verified 02/28/20 22:41) Sulfa (Sulfonamide Antibiotics) Adverse Reaction (Intermediate, Verified 02/28/20 22:41) Nausea - Discharge Instructions Activity:: Activity as Tolerated Nourishment:: Diabetic Diet Therapies:: Occupational Therapy, Physical Therapy, Wound Care Equipment/Supplies:: Wound Care IV Therapy:: Not Applicable - Follow up Plan Referrals: [facility]OUT OF [Primary Care Provider] - Disposition: [facility] Quality - Care Measures CORE MEASURES:: N/A
[2020-09-05 13:28] VITALS: TEMP 98.2
[2020-09-05 13:59] VITALS: BP 168/82
== END 2020-09-05 16:50 | DRG 698 ==
LOC: ERS 14:22 → T4-B 17:46
PROVIDERS: ADMIT Internal Medicine; ATTEND Internal Medicine
DX: T83.511A Infection and inflammatory reaction due to indwelling urethral catheter, initial encounter (principal); G93.41 Metabolic encephalopathy; E43 Unspecified severe protein-calorie malnutrition; Z68.1 Body mass index [BMI] 19.9 or less, adult; E87.1 Hypo-osmolality and hyponatremia; N17.9 Acute kidney failure, unspecified; A04.72 Enterocolitis due to Clostridium difficile, not specified as recurrent; Z86.19 Personal history of other infectious and parasitic diseases; N39.0 Urinary tract infection, site not specified; F41.9 Anxiety disorder, unspecified; F32.9 Major depressive disorder, single episode, unspecified; M54.9 Dorsalgia, unspecified; G89.29 Other chronic pain; E11.21 Type 2 diabetes mellitus with diabetic nephropathy; I10 Essential (primary) hypertension; E86.0 Dehydration; L89.151 Pressure ulcer of sacral region, stage 1; K58.9 Irritable bowel syndrome, unspecified; D53.9 Nutritional anemia, unspecified; Z79.4 Long term (current) use of insulin; Z88.2 Allergy status to sulfonamides; Z74.01 Bed confinement status; Z90.49 Acquired absence of other specified parts of digestive tract; Z90.710 Acquired absence of both cervix and uterus; Z79.899 Other long term (current) drug therapy
CPT/HCPCS: 36415; 36416; 70450; 71045; 74176; 80053; 81003; 81015; 82947; 84484; 85025; 87077; 87086; 87186; 87324; 87449; 87493; 93005; 96365; 96366; J0360; J1650; J2543; J3490

== ENCOUNTER 2021-01-07 19:21 | Inpatient (IN) | payer OTHER ==
[2021-01-07] MEDS ORDERED: Ondansetron ODT 4 MG TAB ONE (19:32)
[2021-01-07 20:41] LABS: Bilirubin Negative (Negative); Blood, Urine Moderate (Negative); Glucose, Urine (Dipstick) Negative (Negative); Ketone, Urine Trace mg/dL (Negative); Leukocyte Large (Negative); Nitrite Negative (Negative); Protein, Urine (Dipstick) > or equal to 300 mg/dL (Neg-Trace); Specific Gravity, Urine 1.025 (1.005-1.030); Urobilinogen 0.2 mg/dL (Less than 2)
[2021-01-07 20:42] LABS: Clarity Turbid (Clear); RBC/HPF 0-3 HPF (0-3); WBC/HPF Greater than 50 HPF (0-3)
[2021-01-07 20:43] LABS: Bacteria/HPF 4+ HPF (None Seen)
[2021-01-07] MEDS ORDERED: Vancomycin 1 GM/200 ML BAG ONE (23:09)
[2021-01-07] MEDS ORDERED: Gentamicin 360 MG in Sodium Chloride 0.9% 100 ML IVPB SCH (23:15)
[2021-01-08] MEDS ORDERED: Gentamicin Sulfate 300 MG in Sodium Chloride 0.9% 100 ML IVPB SCH (01:00)
[2021-01-08] MEDS ORDERED: Acetaminophen 325 MG TAB PO PRN (01:45)
[2021-01-08] MEDS ORDERED: Ondansetron ODT 4 MG TAB SL PRN (01:45)
[2021-01-08] MEDS ORDERED: Ondansetron PF 4 MG/2 ML Vial IVP PRN (01:45)
[2021-01-08 01:47] VITALS: BMI 24.5
[2021-01-08] MEDS ORDERED: Dextrose 5% in Water 1,000 ML IV PRN (02:10)
[2021-01-08 04:10] LABS: #Basophils 0.1 thou/uL (0.0-0.2); #Eosinphils 0.1 thou/uL (0.0-0.7); #Lymphocytes 1.2 thou/uL (1.20-3.40); #Monocytes 0.6 thou/uL (0.11-0.59); #Neutrophils 11.5 thou/uL (1.40-6.50); %Basophils 0.7 % (0.0-1.0); %Monocytes 4.4 % (0.0-10.0); Hemoglobin 9.2 g/dL (12.0-16.0); Mean Corpuscular HGB CONC 33.4 g/dL (32.0-36.0); Mean Corpuscular Hemoglobin 31.6 pg (27.0-31.0); Mean Corpuscular Volume 94.4 fL (78.0-98.0); Mean Platelet Volume 7.6 fL (7.4-10.4); Platelet Count 285 thou/uL (130-400); RBC Distribution Width 12.9 % (11.5-14.5); Red Blood Cell (RBC) Count 2.91 mill/uL (4.20-5.40); White Blood Cell (WBC) Count 13.6 thou/uL (4.8-10.8)
[2021-01-08] MEDS: Sodium Chloride 0.9% 1,000 ML IV SCH ×2 (05:40→14:57)
[2021-01-08 07:25] LABS: ALT (SGPT) 19 U/L (8-55); AST (SGOT) 25 U/L (5-34); Albumin 1.9 g/dL (3.4-4.8); Alkaline Phosphatase 87 U/L (40-110); Anion Gap 12 mmol/L (10-20); BUN (Urea Nitrogen) 33 mg/dL (9.8-20.1); Bilirubin, Total 0.3 mg/dL (0.2-1.2); Calc. Creatinine Clearance 35 mL/min (70-130); Calcium 7.5 mg/dL (7.8-10.44); Carbon Dioxide 18 mmol/L (23-31); Chloride 111 mmol/L (98-107); Globulin 2.5 g/dL (2.4-3.5); Glucose 81 mg/dL (80-115); Lipase Less than 4 U/L (8-78); Potassium 4.3 mmol/L (3.5-5.1); Protein, Total 4.4 g/dL (5.8-8.1); Sodium 137 mmol/L (136-145)
[2021-01-08 08:50] LABS: Anion Gap 9 mmol/L (10-20); BUN (Urea Nitrogen) 31 mg/dL (9.8-20.1); Calc. Creatinine Clearance 41 mL/min (70-130); Calcium 7.2 mg/dL (7.8-10.44); Carbon Dioxide 16 mmol/L (23-31); Chloride 113 mmol/L (98-107); Glucose 121 mg/dL (80-115); Potassium 4.1 mmol/L (3.5-5.1); Sodium 134 mmol/L (136-145)
[2021-01-08 08:55] LABS: #Basophils 0.1 thou/uL (0.0-0.2); #Eosinphils 0.5 thou/uL (0.0-0.7); #Lymphocytes 1.8 thou/uL (1.20-3.40); #Monocytes 0.7 thou/uL (0.11-0.59); #Neutrophils 10.8 thou/uL (1.40-6.50); %Basophils 0.7 % (0.0-1.0); %Eosinophils 3.5 % (0.0-10.0); %Lymphocytes 13.2 % (21.0-51.0); %Monocytes 4.9 % (0.0-10.0); %Neutrophils 77.9 % (42.0-75.0); Hemoglobin 9.1 g/dL (12.0-16.0); Mean Corpuscular HGB CONC 32.4 g/dL (32.0-36.0); Mean Corpuscular Volume 95.4 fL (78.0-98.0); Mean Platelet Volume 7.6 fL (7.4-10.4); Platelet Count 251 thou/uL (130-400); RBC Distribution Width 12.8 % (11.5-14.5); Red Blood Cell (RBC) Count 2.94 mill/uL (4.20-5.40); White Blood Cell (WBC) Count 13.8 thou/uL (4.8-10.8)
[2021-01-08] MEDS: HYDROcodone/Acetaminophen 5/325 mg Tablet PO PRN (08:57)
[2021-01-08] MEDS: Enoxaparin Sodium 30 MG/0.3 ML SYRINGE SC SCH (08:58)
[2021-01-08] MEDS ORDERED: Succinylcholine 200 MG/10 ml SYRINGE FS ONE (09:24)
[2021-01-08] MEDS ORDERED: VANC IVPB PRN (09:44)
[2021-01-08] MEDS: Vancomycin 1 GM in Premix Bag 1 BAG IVPB SCH (10:22)
[2021-01-08 11:53] LABS: Hemoglobin A1c 4.8 % (4.0-6.0)
[2021-01-08] MEDS ORDERED: Oxybutynin ER 5 MG TAB PO SCH (13:30)
[2021-01-08] MEDS: hydrALAZINE 25 MG TAB PO SCH ×2 (14:43→19:52)
[2021-01-08] MEDS: HumaLOG 300 UNITS/3 ML VIAL SC PRN (18:03)
[2021-01-09] MEDS: Sodium Chloride 0.9% 1,000 ML IV SCH ×2 (00:09→11:12)
[2021-01-09] MEDS ORDERED: Gentamicin Sulfate 100 MG in Premix Bag 1 BAG IVPB SCH (02:00)
[2021-01-09] MEDS: HYDROcodone/Acetaminophen 5/325 mg Tablet PO PRN ×3 (03:21→12:55)
[2021-01-09] MEDS: hydrALAZINE 25 MG TAB PO SCH ×3 (08:05→20:56)
[2021-01-09] MEDS: Oxybutynin ER 5 MG TAB PO SCH (08:05)
[2021-01-09] MEDS: Escitalopram Oxalate 10 mg Tablet PO SCH (08:06)
[2021-01-09] MEDS: Enoxaparin Sodium 30 MG/0.3 ML SYRINGE SC SCH (08:07)
[2021-01-09] MEDS: ALPRAZolam 0.25 MG TAB PO PRN (11:06)
[2021-01-09] MEDS: Vancomycin 1 GM in Premix Bag 1 BAG IVPB SCH (11:07)
[2021-01-09 11:54] LABS: Urine Total Volume 1000 mL (250-2400)
[2021-01-09 12:47] LABS: Protein - 24 Hr 8490 mg/24 hr (Less than 300); Protein, Urine 849 mg/dL (1-14)
[2021-01-09] MEDS: cefTRIAXone\\ROCEPHIN 1 GM in Sodium Chloride 0.9% 100 ML IVPB SCH (12:56)
[2021-01-09] MEDS: Sodium Bicarbonate Tab 325 MG TAB PO SCH ×2 (14:18→20:56)
[2021-01-09] MEDS: Albumin 25% 25 GM/100 ML BOT IVPB SCH ×2 (17:05→23:12)
[2021-01-09] MEDS: HumaLOG 300 UNITS/3 ML VIAL SC PRN (17:06)
[2021-01-10] MEDS: HYDROcodone/Acetaminophen 5/325 mg Tablet PO PRN ×4 (00:56→21:23)
[2021-01-10] MEDS: Albumin 25% 25 GM/100 ML BOT IVPB SCH ×2 (05:21→18:14)
[2021-01-10 06:24] LABS: Hemoglobin 8.8 g/dL (12.0-16.0); Mean Corpuscular HGB CONC 32.5 g/dL (32.0-36.0); Mean Corpuscular Hemoglobin 31.2 pg (27.0-31.0); Mean Corpuscular Volume 96.1 fL (78.0-98.0); Platelet Count 306 thou/uL (130-400); Red Blood Cell (RBC) Count 2.82 mill/uL (4.20-5.40); White Blood Cell (WBC) Count 11.3 thou/uL (4.8-10.8)
[2021-01-10 06:41] LABS: Anion Gap 9 mmol/L (10-20); BUN (Urea Nitrogen) 37 mg/dL (9.8-20.1); BUN/Creatinine Ratio 21.89; Calc. Creatinine Clearance 34 mL/min (70-130); Calcium 7.2 mg/dL (7.8-10.44); Carbon Dioxide 18 mmol/L (23-31); Chloride 116 mmol/L (98-107); Glucose 172 mg/dL (80-115); Iron 49 ug/dL (50-170); Iron Binding Capacity, Total 131 mcg/dL (265-497); Phosphorus 4.1 mg/dL (2.3-4.7); Potassium 5.3 mmol/L (3.5-5.1); Sodium 138 mmol/L (136-145)
[2021-01-10] MEDS: Sodium Bicarbonate Tab 325 MG TAB PO SCH ×3 (08:56→21:22)
[2021-01-10] MEDS: Calcium Carbonate 500 MG ChewTAB PO SCH ×3 (08:56→16:33)
[2021-01-10] MEDS: Escitalopram Oxalate 10 mg Tablet PO SCH (08:57)
[2021-01-10] MEDS: Oxybutynin ER 5 MG TAB PO SCH (08:57)
[2021-01-10] MEDS: hydrALAZINE 25 MG TAB PO SCH ×3 (08:57→21:22)
[2021-01-10] MEDS: Enoxaparin Sodium 30 MG/0.3 ML SYRINGE SC SCH (08:58)
[2021-01-10] MEDS: Vancomycin 1 GM in Premix Bag 1 BAG IVPB SCH ×2 (08:58→11:59)
[2021-01-10] MEDS ORDERED: Furosemide 20 MG TAB PO SCH (09:00)
[2021-01-10] MEDS ORDERED: Lisinopril 20 MG TAB PO SCH (09:00)
[2021-01-10] MEDS: EPOETIN ALFA-EPBX (ESRD) 10,000 UNIT/ML VIAL SC SCH (09:23)
[2021-01-10 12:04] LABS: Vancomycin, Trough 24.2 ug/mL
[2021-01-10] MEDS: cefTRIAXone\\ROCEPHIN 1 GM in Sodium Chloride 0.9% 100 ML IVPB SCH (12:44)
[2021-01-10] MEDS: Nitrofurantoin Monohyd/M-Cryst 100 MG CAP PO SCH (21:23)
[2021-01-11] MEDS: ALPRAZolam 0.25 MG TAB PO PRN (00:42)
[2021-01-11] MEDS ORDERED: Morphine 2 MG/ML VIAL SLOW IVP SCH (03:00)
[2021-01-11 04:10] LABS: Albumin 2.3 g/dL (3.4-4.8); Anion Gap 9 mmol/L (10-20); BUN (Urea Nitrogen) 37 mg/dL (9.8-20.1); BUN/Creatinine Ratio 24.03; Calc. Creatinine Clearance 37 mL/min (70-130); Calcium 7.5 mg/dL (7.8-10.44); Carbon Dioxide 22 mmol/L (23-31); Chloride 115 mmol/L (98-107); Glucose 95 mg/dL (80-115); Phosphorus 4.4 mg/dL (2.3-4.7); Potassium 4.8 mmol/L (3.5-5.1); Sodium 141 mmol/L (136-145)
[2021-01-11] MEDS ORDERED: hydrALAZINE 20 MG/ML VIAL SLOW IVP SCH (07:30)
[2021-01-11] MEDS: HYDROcodone/Acetaminophen 5/325 mg Tablet PO PRN ×4 (09:03→21:33)
[2021-01-11] MEDS: Calcium Carbonate 500 MG ChewTAB PO SCH ×3 (09:04→17:16)
[2021-01-11] MEDS: Sodium Bicarbonate Tab 325 MG TAB PO SCH ×3 (09:04→20:44)
[2021-01-11] MEDS: Nitrofurantoin Monohyd/M-Cryst 100 MG CAP PO SCH ×2 (09:04→20:45)
[2021-01-11] MEDS: Escitalopram Oxalate 10 mg Tablet PO SCH (09:04)
[2021-01-11] MEDS: hydrALAZINE 25 MG TAB PO SCH ×3 (09:04→20:44)
[2021-01-11] MEDS: Enoxaparin Sodium 30 MG/0.3 ML SYRINGE SC SCH (09:05)
[2021-01-11] MEDS ORDERED: Spironolactone 25 MG TAB PO SCH (09:45)
[2021-01-11] MEDS ORDERED: Torsemide 10 MG TAB PO SCH (10:00)
[2021-01-11] MEDS: Oxybutynin ER 5 MG TAB PO SCH (10:12)
[2021-01-11] MEDS ORDERED: Albumin 25% 25 GM/100 ML BOT IVPB SCH (12:00)
[2021-01-11] MEDS ORDERED: Polyethylene Glycol 3350 17 GM Packet PO SCH (12:45)
[2021-01-11 14:41] LABS: #Basophils 0.1 thou/uL (0.0-0.2); #Eosinphils 0.4 thou/uL (0.0-0.7); #Lymphocytes 1.5 thou/uL (1.20-3.40); #Monocytes 0.4 thou/uL (0.11-0.59); #Neutrophils 7.7 thou/uL (1.40-6.50); %Basophils 0.8 % (0.0-1.0); %Eosinophils 4.1 % (0.0-10.0); %Lymphocytes 15.1 % (21.0-51.0); %Monocytes 3.9 % (0.0-10.0); %Neutrophils 76.1 % (42.0-75.0); Hemoglobin 7.8 g/dL (12.0-16.0); Mean Corpuscular HGB CONC 32.7 g/dL (32.0-36.0); Mean Corpuscular Hemoglobin 31.5 pg (27.0-31.0); Mean Corpuscular Volume 96.3 fL (78.0-98.0); Mean Platelet Volume 7.2 fL (7.4-10.4); Platelet Count 279 thou/uL (130-400); Red Blood Cell (RBC) Count 2.48 mill/uL (4.20-5.40); White Blood Cell (WBC) Count 10.1 thou/uL (4.8-10.8)
[2021-01-11] MEDS: Zolpidem Tartrate 5 MG TAB PO PRN (22:55)
[2021-01-12] MEDS: HYDROcodone/Acetaminophen 5/325 mg Tablet PO PRN ×3 (05:11→20:54)
[2021-01-12 05:49] LABS: Albumin 2.5 g/dL (3.4-4.8); Anion Gap 9 mmol/L (10-20); BUN (Urea Nitrogen) 36 mg/dL (9.8-20.1); BUN/Creatinine Ratio 24.66; Calc. Creatinine Clearance 39 mL/min (70-130); Calcium 7.7 mg/dL (7.8-10.44); Carbon Dioxide 22 mmol/L (23-31); Chloride 112 mmol/L (98-107); Glucose 88 mg/dL (80-115); Phosphorus 4.8 mg/dL (2.3-4.7); Sodium 138 mmol/L (136-145)
[2021-01-12] MEDS ORDERED: Spironolactone 25 MG TAB PO SCH (08:00)
[2021-01-12 08:57] LABS: Hemoglobin 8.2 g/dL (12.0-16.0); Mean Corpuscular HGB CONC 32.8 g/dL (32.0-36.0); Mean Corpuscular Hemoglobin 31.5 pg (27.0-31.0); Mean Platelet Volume 7.9 fL (7.4-10.4); Platelet Count 232 thou/uL (130-400); RBC Distribution Width 12.9 % (11.5-14.5); Red Blood Cell (RBC) Count 2.61 mill/uL (4.20-5.40)
[2021-01-12 09:06] LABS: Anion Gap 13 mmol/L (10-20); BUN (Urea Nitrogen) 37 mg/dL (9.8-20.1); Calc. Creatinine Clearance 38 mL/min (70-130); Calcium 7.8 mg/dL (7.8-10.44); Carbon Dioxide 16 mmol/L (23-31); Chloride 113 mmol/L (98-107); Glucose 85 mg/dL (80-115); Potassium 5.2 mmol/L (3.5-5.1); Sodium 137 mmol/L (136-145)
[2021-01-12] MEDS: Calcium Carbonate 500 MG ChewTAB PO SCH (09:10)
[2021-01-12] MEDS: Enoxaparin Sodium 30 MG/0.3 ML SYRINGE SC SCH (09:10)
[2021-01-12] MEDS: Escitalopram Oxalate 10 mg Tablet PO SCH (09:11)
[2021-01-12] MEDS: Nitrofurantoin Monohyd/M-Cryst 100 MG CAP PO SCH ×2 (09:11→20:52)
[2021-01-12] MEDS: Torsemide 10 MG TAB PO SCH (09:11)
[2021-01-12] MEDS: Ergocalciferol 1.25 MG(50,000 UNITS) CAP PO SCH (09:11)
[2021-01-12] MEDS: Sodium Bicarbonate Tab 325 MG TAB PO SCH ×3 (09:12→20:53)
[2021-01-12] MEDS: Oxybutynin ER 5 MG TAB PO SCH (09:13)
[2021-01-12] MEDS ORDERED: Albumin 25% 25 GM/100 ML BOT IVPB SCH ×2 (09:29→18:00)
[2021-01-12] MEDS: ALPRAZolam 0.25 MG TAB PO PRN (11:16)
[2021-01-12] MEDS: Zolpidem Tartrate 5 MG TAB PO PRN (20:55)
[2021-01-13 06:25] LABS: #Basophils 0.1 thou/uL (0.0-0.2); #Eosinphils 0.4 thou/uL (0.0-0.7); #Lymphocytes 1.5 thou/uL (1.20-3.40); #Monocytes 0.6 thou/uL (0.11-0.59); #Neutrophils 8.4 thou/uL (1.40-6.50); %Basophils 0.6 % (0.0-1.0); %Eosinophils 3.9 % (0.0-10.0); %Lymphocytes 13.9 % (21.0-51.0); %Monocytes 5.8 % (0.0-10.0); %Neutrophils 75.8 % (42.0-75.0); Hemoglobin 7.8 g/dL (12.0-16.0); Mean Corpuscular HGB CONC 32.6 g/dL (32.0-36.0); Mean Corpuscular Hemoglobin 31.5 pg (27.0-31.0); Mean Corpuscular Volume 96.4 fL (78.0-98.0); Mean Platelet Volume 7.2 fL (7.4-10.4); Platelet Count 304 thou/uL (130-400); RBC Distribution Width 12.7 % (11.5-14.5); Red Blood Cell (RBC) Count 2.46 mill/uL (4.20-5.40)
[2021-01-13 06:46] LABS: Anion Gap 11 mmol/L (10-20); BUN (Urea Nitrogen) 37 mg/dL (9.8-20.1); Calc. Creatinine Clearance 35 mL/min (70-130); Carbon Dioxide 23 mmol/L (23-31); Chloride 113 mmol/L (98-107); Glucose 95 mg/dL (80-115); Phosphorus 5.3 mg/dL (2.3-4.7); Potassium 4.7 mmol/L (3.5-5.1); Sodium 142 mmol/L (136-145)
[2021-01-13] MEDS: Enoxaparin Sodium 30 MG/0.3 ML SYRINGE SC SCH (09:14)
[2021-01-13] MEDS: Oxybutynin ER 5 MG TAB PO SCH (09:15)
[2021-01-13] MEDS: Nitrofurantoin Monohyd/M-Cryst 100 MG CAP PO SCH ×2 (09:15→21:25)
[2021-01-13] MEDS: Escitalopram Oxalate 10 mg Tablet PO SCH (09:15)
[2021-01-13] MEDS: Torsemide 10 MG TAB PO SCH (09:16)
[2021-01-13] MEDS: HYDROcodone/Acetaminophen 5/325 mg Tablet PO PRN ×2 (09:16→21:35)
[2021-01-13] MEDS: Sodium Bicarbonate Tab 325 MG TAB PO SCH ×3 (09:16→21:25)
[2021-01-13] MEDS: ALPRAZolam 0.25 MG TAB PO PRN (09:16)
[2021-01-13] MEDS: Polyethylene Glycol 3350 17 GM Packet PO SCH (09:16)
[2021-01-13] MEDS: Zolpidem Tartrate 5 MG TAB PO PRN (21:28)
[2021-01-14 06:13] LABS: Albumin 2.9 g/dL (3.4-4.8); Anion Gap 12 mmol/L (10-20); BUN (Urea Nitrogen) 39 mg/dL (9.8-20.1); BUN/Creatinine Ratio 21.08; Calc. Creatinine Clearance 31 mL/min (70-130); Carbon Dioxide 23 mmol/L (23-31); Chloride 107 mmol/L (98-107); Glucose 135 mg/dL (80-115); Phosphorus 5.5 mg/dL (2.3-4.7); Potassium 4.8 mmol/L (3.5-5.1); Sodium 137 mmol/L (136-145)
[2021-01-14] MEDS: Sodium Bicarbonate Tab 325 MG TAB PO SCH ×2 (09:35→21:24)
[2021-01-14] MEDS: Torsemide 10 MG TAB PO SCH (09:35)
[2021-01-14] MEDS: Polyethylene Glycol 3350 17 GM Packet PO SCH (09:35)
[2021-01-14] MEDS: Oxybutynin ER 5 MG TAB PO SCH (09:35)
[2021-01-14] MEDS: Enoxaparin Sodium 30 MG/0.3 ML SYRINGE SC SCH (09:35)
[2021-01-14] MEDS: Dronabinol 2.5 MG CAP PO SCH ×2 (09:35→17:18)
[2021-01-14] MEDS: Nitrofurantoin Monohyd/M-Cryst 100 MG CAP PO SCH ×2 (09:36→21:24)
[2021-01-14] MEDS: Escitalopram Oxalate 10 mg Tablet PO SCH (09:36)
[2021-01-14] MEDS: HYDROcodone/Acetaminophen 5/325 mg Tablet PO PRN (09:36)
[2021-01-14] MEDS: ALPRAZolam 0.25 MG TAB PO PRN (09:37)
[2021-01-14] MEDS: HumaLOG 300 UNITS/3 ML VIAL SC PRN (17:20)
[2021-01-15] MEDS ORDERED: EPINEPHrine 1 MG/10 ML Abboject SYRINGE ONE (06:57)
[2021-01-15] MEDS ORDERED: Albumin 25% 25 GM/100 ML BOT IVPB SCH (08:04)
[2021-01-15 08:07] LABS: ALT (SGPT) 43 U/L (8-55); AST (SGOT) 80 U/L (5-34); Albumin 2.7 g/dL (3.4-4.8); Alkaline Phosphatase 100 U/L (40-110); Bilirubin, Direct 0.2 mg/dL (0.1-0.3); Bilirubin, Total 0.2 mg/dL (0.2-1.2); Protein, Total 4.7 g/dL (5.8-8.1)
[2021-01-15 08:22] LABS: Albumin 2.7 g/dL (3.4-4.8); Anion Gap 15 mmol/L (10-20); BUN (Urea Nitrogen) 44 mg/dL (9.8-20.1); BUN/Creatinine Ratio 16.86; Calc. Creatinine Clearance 22 mL/min (70-130); Calcium 7.8 mg/dL (7.8-10.44); Carbon Dioxide 17 mmol/L (23-31); Chloride 109 mmol/L (98-107); Glucose 311 mg/dL (80-115); Potassium 5.3 mmol/L (3.5-5.1); Sodium 136 mmol/L (136-145)
[2021-01-15 08:27] LABS: Actual Bicarbonate (HCO3a) 14.4 mEq/L (22-28); Base Excess (BEa) -9.4 mEq/L (-2.0 to +3.0); CO2 Tension 24.4 mmHg (35.0-45.0); Calcium, Ionized (arterial) 1.09 mmol/L (1.12-1.30); Carboxyhemoglobin (COHb) 0.2 gm% (0.0-3.0); Potassium - ABG Lab 4.96 mmol/L (3.70-5.30); pH, Arterial 7.39 (7.35-7.45)
[2021-01-15 08:28] LABS: Puncture Site RBA
[2021-01-15] MEDS: Dronabinol 2.5 MG CAP PO SCH (08:39)
[2021-01-15 08:40] LABS: Hemoglobin 7.9 g/dL (12.0-16.0); Mean Corpuscular HGB CONC 31.6 g/dL (32.0-36.0); Mean Corpuscular Hemoglobin 31.2 pg (27.0-31.0); Mean Corpuscular Volume 98.7 fL (78.0-98.0); Mean Platelet Volume 7.3 fL (7.4-10.4); Platelet Count 347 thou/uL (130-400); RBC Distribution Width 12.9 % (11.5-14.5); Red Blood Cell (RBC) Count 2.54 mill/uL (4.20-5.40); White Blood Cell (WBC) Count 21.3 thou/uL (4.8-10.8)
[2021-01-15 09:39] LABS: Band 11 % (5-11); Eosinophils 3 % (0-10); Hypochromia SLIGHT = 6-15 cells (100X) (0-5/hpf); Lymphocytes 8 % (21-51); MDiff Complete? YES; Monocytes 2 % (0-10); Neutrophil 75 % (42-75); Platelet Morphology Comment Appears Adequate; Polychromasia SLIGHT = 2-3 cells (100X) (0-2/hpf); Reactive Lymphocytes 1 % (0-10)
[2021-01-15] MEDS ORDERED: Sodium Bicarbonate 150 MEQ in Dextrose 5% in Water 1,000 ML IV SCH (10:15)
[2021-01-15] MEDS ORDERED: Fentanyl 100 MCG/2 ML VIAL ONE (10:16)
[2021-01-15] MEDS ORDERED: Ventilator Sedation Protocol 1 EACH FS ONE (10:19)
[2021-01-15] MEDS ORDERED: Propofol 1,000 MG/100 ML VIAL IV PRN (10:30)
[2021-01-15] MEDS ORDERED: DISCONTINUE PREVIOUS NARCOTIC PAIN MEDICATIONS AND BENZODIAZEPINES FS SCH (10:30)
[2021-01-15] MEDS ORDERED: Fentanyl BOLUS 250 ML IVPB PRN (10:30)
[2021-01-15] MEDS ORDERED: Morphine 2 MG/ML VIAL SLOW IVP PRN (10:30)
[2021-01-15] MEDS ORDERED: Lorazepam 2 MG/ML VIAL SLOW IVP PRN (10:30)
[2021-01-15] MEDS ORDERED: Propofol BOLUS 1,000 MG/100 ML VIAL IV PRN (10:30)
[2021-01-15] MEDS ORDERED: Piperacillin/Tazobactam 2.25 GM in Sodium Chloride 0.9% 100 ML IVPB SCH (11:00)
[2021-01-15] MEDS: Sodium Bicarbonate Tab 325 MG TAB PO SCH ×2 (11:22→21:22)
[2021-01-15] MEDS: Polyethylene Glycol 3350 17 GM Packet PO SCH (11:22)
[2021-01-15] MEDS: Oxybutynin ER 5 MG TAB PO SCH (11:23)
[2021-01-15] MEDS: Nitrofurantoin Monohyd/M-Cryst 100 MG CAP PO SCH (11:23)
[2021-01-15] MEDS: Enoxaparin Sodium 60 MG/0.6 ML SYRINGE SC SCH (11:23)
[2021-01-15] MEDS: Escitalopram Oxalate 10 mg Tablet PO SCH (11:23)
[2021-01-15] MEDS: Fentanyl CADD 100 ML IV SCH (11:28)
[2021-01-15] MEDS: Piperacillin/Tazobactam 2.25 GM in Sodium Chloride 0.9% 100 ML IVPB SCH ×2 (12:03→21:22)
[2021-01-15] MEDS: HumaLOG 300 UNITS/3 ML VIAL SC PRN (12:40)
[2021-01-15 15:22] LABS: SARS-CoV-2 NAA Rapid Test Not Detected (NotDetected)
[2021-01-15] MEDS ORDERED: Piperacillin/Tazobactam 2.25 GM VIAL ONE (21:16)
[2021-01-15] MEDS: hydrALAZINE 20 MG/ML VIAL SLOW IVP PRN (22:12)
[2021-01-16] MEDS: Piperacillin/Tazobactam 2.25 GM in Sodium Chloride 0.9% 100 ML IVPB SCH ×3 (04:00→19:55)
[2021-01-16 04:44] LABS: #Basophils 0.1 thou/uL (0.0-0.2); #Eosinphils 0.1 thou/uL (0.0-0.7); #Lymphocytes 1.4 thou/uL (1.20-3.40); #Monocytes 0.7 thou/uL (0.11-0.59); #Neutrophils 9.5 thou/uL (1.40-6.50); %Basophils 0.5 % (0.0-1.0); %Eosinophils 0.9 % (0.0-10.0); %Lymphocytes 12.3 % (21.0-51.0); %Monocytes 5.6 % (0.0-10.0); %Neutrophils 80.7 % (42.0-75.0); Hemoglobin 6.7 g/dL (12.0-16.0); Mean Corpuscular HGB CONC 32.8 g/dL (32.0-36.0); Mean Corpuscular Hemoglobin 31.5 pg (27.0-31.0); Mean Platelet Volume 7.6 fL (7.4-10.4); Platelet Count 272 thou/uL (130-400); RBC Distribution Width 12.8 % (11.5-14.5); Red Blood Cell (RBC) Count 2.13 mill/uL (4.20-5.40); White Blood Cell (WBC) Count 11.8 thou/uL (4.8-10.8)
[2021-01-16 05:06] LABS: Albumin 2.7 g/dL (3.4-4.8); Anion Gap 13 mmol/L (10-20); BUN (Urea Nitrogen) 40 mg/dL (9.8-20.1); BUN/Creatinine Ratio 17.54; Calc. Creatinine Clearance 25 mL/min (70-130); Carbon Dioxide 21 mmol/L (23-31); Chloride 111 mmol/L (98-107); Glucose 85 mg/dL (80-115); Phosphorus 5.2 mg/dL (2.3-4.7); Potassium 3.8 mmol/L (3.5-5.1); Sodium 141 mmol/L (136-145)
[2021-01-16] MEDS: hydrALAZINE 20 MG/ML VIAL SLOW IVP PRN ×2 (05:10→17:06)
[2021-01-16 08:02] LABS: Actual Bicarbonate (HCO3a) 20.7 mEq/L (22-28); Base Excess (BEa) -3.3 mEq/L (-2.0 to +3.0); CO2 Tension 32.5 mmHg (35.0-45.0); Calcium, Ionized (arterial) 1.12 mmol/L (1.12-1.30); Carboxyhemoglobin (COHb) 0.4 gm% (0.0-3.0); Hemoglobin (Hb) 8.1 g/dL (12.0-16.0); O2 Tension (PaO2), arterial 96.2 mmHg (> 80.0); Potassium - ABG Lab 3.71 mmol/L (3.70-5.30); pH, Arterial 7.42 (7.35-7.45)
[2021-01-16 08:03] LABS: ALV-art Gradient 112.725 mmHg (0-20); Puncture Site RRA
[2021-01-16] MEDS: Polyethylene Glycol 3350 17 GM Packet PO SCH (08:17)
[2021-01-16] MEDS: Enoxaparin Sodium 60 MG/0.6 ML SYRINGE SC SCH (08:17)
[2021-01-16] MEDS: Sodium Bicarbonate Tab 325 MG TAB PO SCH ×2 (08:17→20:04)
[2021-01-16] MEDS: Escitalopram Oxalate 10 mg Tablet PO SCH (08:17)
[2021-01-16] MEDS: Oxybutynin ER 5 MG TAB PO SCH (08:18)
[2021-01-16] MEDS ORDERED: Furosemide 40 MG/4 ML VIAL SLOW IVP SCH (08:45)
[2021-01-16] MEDS ORDERED: Fentanyl CADD 100 ML ONE (09:14)
[2021-01-16] MEDS: hydrALAZINE 25 MG TAB PER TUBE SCH ×3 (09:21→20:05)
[2021-01-16] MEDS: Fentanyl CADD 100 ML IV SCH (09:22)
[2021-01-16 16:14] LABS: Mean Corpuscular HGB CONC 33.7 g/dL (32.0-36.0); Mean Corpuscular Hemoglobin 31.8 pg (27.0-31.0); Mean Corpuscular Volume 94.4 fL (78.0-98.0); Mean Platelet Volume 7.3 fL (7.4-10.4); Platelet Count 259 thou/uL (130-400); RBC Distribution Width 12.9 % (11.5-14.5); Red Blood Cell (RBC) Count 2.83 mill/uL (4.20-5.40)
[2021-01-16 19:39] LABS: SARS-CoV-2 IgG Ab Non-Reactive (NonReactive); SARS-CoV-2 IgG Index 0.07 S/CO (< 1.40)
[2021-01-16] MEDS: Dextrose 50% Abboject 50 ML SYRINGE SLOW IVP PRN (22:31)
[2021-01-17] MEDS: hydrALAZINE 20 MG/ML VIAL SLOW IVP PRN ×2 (02:00→20:13)
[2021-01-17] MEDS: Piperacillin/Tazobactam 2.25 GM in Sodium Chloride 0.9% 100 ML IVPB SCH ×3 (02:00→18:15)
[2021-01-17] MEDS: Dextrose 50% Abboject 50 ML SYRINGE SLOW IVP PRN (04:15)
[2021-01-17] MEDS ORDERED: Fentanyl CADD 100 ML ONE (04:29)
[2021-01-17 05:52] LABS: #Basophils 0.1 thou/uL (0.0-0.2)
[2021-01-17 05:53] LABS: Anion Gap 16 mmol/L (10-20); BUN (Urea Nitrogen) 35 mg/dL (9.8-20.1); Calc. Creatinine Clearance 27 mL/min (70-130); Calcium 7.9 mg/dL (7.8-10.44); Carbon Dioxide 20 mmol/L (23-31); Chloride 111 mmol/L (98-107); Glucose 72 mg/dL (80-115); Potassium 3.4 mmol/L (3.5-5.1); Sodium 144 mmol/L (136-145)
[2021-01-17 06:13] LABS: #Eosinphils 0.8 thou/uL (0.0-0.7); #Lymphocytes 1.5 thou/uL (1.20-3.40); #Monocytes 0.9 thou/uL (0.11-0.59); #Neutrophils 9.2 thou/uL (1.40-6.50); %Basophils 0.8 % (0.0-1.0); %Lymphocytes 12.4 % (21.0-51.0); %Neutrophils 73.7 % (42.0-75.0); Hemoglobin 9.4 g/dL (12.0-16.0); Mean Corpuscular HGB CONC 31.6 g/dL (32.0-36.0); Mean Corpuscular Hemoglobin 30.1 pg (27.0-31.0); Mean Corpuscular Volume 95.3 fL (78.0-98.0); Mean Platelet Volume 7.6 fL (7.4-10.4); Platelet Count 313 thou/uL (130-400); RBC Distribution Width 13.2 % (11.5-14.5); Red Blood Cell (RBC) Count 3.13 mill/uL (4.20-5.40); White Blood Cell (WBC) Count 12.5 thou/uL (4.8-10.8)
[2021-01-17] MEDS ORDERED: Spironolactone 25 MG TAB PO SCH (07:15)
[2021-01-17 07:17] LABS: Actual Bicarbonate (HCO3a) 20.3 mEq/L (22-28); Base Excess (BEa) -4.1 mEq/L (-2.0 to +3.0); CO2 Tension 34.6 mmHg (35.0-45.0); Calcium, Ionized (arterial) 1.13 mmol/L (1.12-1.30); Carboxyhemoglobin (COHb) 0.3 gm% (0.0-3.0); Hemoglobin (Hb) 10.3 g/dL (12.0-16.0); O2 Tension (PaO2), arterial 133.4 mmHg (> 80.0); Potassium - ABG Lab 3.41 mmol/L (3.70-5.30); pH, Arterial 7.39 (7.35-7.45)
[2021-01-17 07:19] LABS: Puncture Site RRA
[2021-01-17] MEDS ORDERED: DC Sedation Protocol FS ONE (08:38)
[2021-01-17] MEDS ORDERED: Potassium Chloride 40 MEQ in Sodium Chloride 0.9% 250 ML 250 ML IVPB SCH (08:45)
[2021-01-17] MEDS ORDERED: Torsemide 10 MG TAB PER TUBE SCH (09:15)
[2021-01-17] MEDS: Enoxaparin Sodium 60 MG/0.6 ML SYRINGE SC SCH (09:20)
[2021-01-17] MEDS: EPOETIN ALFA-EPBX (ESRD) 10,000 UNIT/ML VIAL SC SCH (09:43)
[2021-01-17] MEDS ORDERED: Morphine 2 MG/ML VIAL SLOW IVP PRN (13:09)
[2021-01-17] MEDS ORDERED: Furosemide 40 MG/4 ML VIAL SLOW IVP SCH ×2 (14:30→15:00)
[2021-01-17] MEDS: Escitalopram Oxalate 10 mg Tablet PO SCH (16:06)
[2021-01-17] MEDS: Oxybutynin ER 5 MG TAB PO SCH (16:07)
[2021-01-17] MEDS: hydrALAZINE 25 MG TAB PER TUBE SCH ×2 (16:07→20:13)
[2021-01-17] MEDS: Polyethylene Glycol 3350 17 GM Packet PO SCH (16:08)
[2021-01-17] MEDS: Sodium Bicarbonate Tab 325 MG TAB PO SCH ×2 (16:08→20:05)
[2021-01-18] MEDS: Piperacillin/Tazobactam 2.25 GM in Sodium Chloride 0.9% 100 ML IVPB SCH ×3 (03:18→18:11)
[2021-01-18 04:54] LABS: #Basophils 0.1 thou/uL (0.0-0.2); #Eosinphils 0.5 thou/uL (0.0-0.7); #Lymphocytes 1.3 thou/uL (1.20-3.40); #Monocytes 0.9 thou/uL (0.11-0.59); #Neutrophils 9.2 thou/uL (1.40-6.50); %Basophils 0.7 % (0.0-1.0); %Eosinophils 4.1 % (0.0-10.0); %Lymphocytes 11.2 % (21.0-51.0); %Monocytes 7.3 % (0.0-10.0); %Neutrophils 76.8 % (42.0-75.0); Mean Corpuscular HGB CONC 33.5 g/dL (32.0-36.0); Mean Corpuscular Hemoglobin 31.9 pg (27.0-31.0); Mean Platelet Volume 7.2 fL (7.4-10.4); Platelet Count 305 thou/uL (130-400); RBC Distribution Width 12.9 % (11.5-14.5); Red Blood Cell (RBC) Count 2.82 mill/uL (4.20-5.40)
[2021-01-18 05:13] LABS: Anion Gap 13 mmol/L (10-20); BUN (Urea Nitrogen) 30 mg/dL (9.8-20.1); Calc. Creatinine Clearance 29 mL/min (70-130); Calcium 7.9 mg/dL (7.8-10.44); Carbon Dioxide 21 mmol/L (23-31); Chloride 110 mmol/L (98-107); Glucose 93 mg/dL (80-115); Potassium 3.7 mmol/L (3.5-5.1); Sodium 140 mmol/L (136-145)
[2021-01-18] MEDS: hydrALAZINE 20 MG/ML VIAL SLOW IVP PRN ×2 (06:10→16:38)
[2021-01-18] MEDS: Sodium Bicarbonate Tab 325 MG TAB PO SCH ×2 (08:29→21:59)
[2021-01-18] MEDS: hydrALAZINE 25 MG TAB PER TUBE SCH ×3 (08:30→21:59)
[2021-01-18] MEDS: Oxybutynin ER 5 MG TAB PO SCH (08:30)
[2021-01-18] MEDS: Escitalopram Oxalate 10 mg Tablet PO SCH (08:30)
[2021-01-18] MEDS: Torsemide 10 MG TAB PO SCH (08:30)
[2021-01-18] MEDS: Polyethylene Glycol 3350 17 GM Packet PO SCH (08:46)
[2021-01-18] MEDS: Spironolactone 100 MG TAB PO SCH (10:09)
[2021-01-18] MEDS: Apixaban 2.5 MG TAB PO SCH ×2 (10:09→21:59)
[2021-01-18] MEDS: Amoxicillin/Potassium Clav 500 MG TAB PO SCH (21:59)
[2021-01-19] MEDS: Piperacillin/Tazobactam 2.25 GM in Sodium Chloride 0.9% 100 ML IVPB SCH ×3 (03:57→17:06)
[2021-01-19 05:22] LABS: #Basophils 0.1 thou/uL (0.0-0.2); #Eosinphils 0.4 thou/uL (0.0-0.7); #Lymphocytes 1.8 thou/uL (1.20-3.40); #Monocytes 0.8 thou/uL (0.11-0.59); #Neutrophils 7.4 thou/uL (1.40-6.50); %Basophils 0.6 % (0.0-1.0); %Eosinophils 3.5 % (0.0-10.0); %Lymphocytes 17.2 % (21.0-51.0); %Monocytes 7.5 % (0.0-10.0); %Neutrophils 71.1 % (42.0-75.0); Hemoglobin 8.9 g/dL (12.0-16.0); Mean Corpuscular HGB CONC 32.6 g/dL (32.0-36.0); Mean Corpuscular Hemoglobin 30.8 pg (27.0-31.0); Mean Corpuscular Volume 94.6 fL (78.0-98.0); Mean Platelet Volume 7.3 fL (7.4-10.4); Platelet Count 299 thou/uL (130-400); RBC Distribution Width 12.8 % (11.5-14.5); Red Blood Cell (RBC) Count 2.89 mill/uL (4.20-5.40); White Blood Cell (WBC) Count 10.4 thou/uL (4.8-10.8)
[2021-01-19 05:48] LABS: Anion Gap 12 mmol/L (10-20); BUN (Urea Nitrogen) 28 mg/dL (9.8-20.1); Calc. Creatinine Clearance 29 mL/min (70-130); Calcium 7.9 mg/dL (7.8-10.44); Carbon Dioxide 20 mmol/L (23-31); Chloride 112 mmol/L (98-107); Glucose 97 mg/dL (80-115); Potassium 3.4 mmol/L (3.5-5.1); Sodium 141 mmol/L (136-145)
[2021-01-19 08:44] LABS: Albumin 2.4 g/dL (3.4-4.8)
[2021-01-19] MEDS: Apixaban 2.5 MG TAB PO SCH ×2 (09:06→22:25)
[2021-01-19] MEDS: Cholecalciferol 1,000 UNITS (25 MCG) TAB PO SCH (09:06)
[2021-01-19] MEDS: Amoxicillin/Potassium Clav 500 MG TAB PO SCH (09:06)
[2021-01-19] MEDS: Oxybutynin ER 5 MG TAB PO SCH (09:07)
[2021-01-19] MEDS: Escitalopram Oxalate 10 mg Tablet PO SCH (09:09)
[2021-01-19] MEDS: Torsemide 10 MG TAB PO SCH (09:09)
[2021-01-19] MEDS: Spironolactone 100 MG TAB PO SCH (09:09)
[2021-01-19] MEDS: Ergocalciferol 1.25 MG(50,000 UNITS) CAP PO SCH (09:09)
[2021-01-19] MEDS: Polyethylene Glycol 3350 17 GM Packet PO SCH (09:18)
[2021-01-19] MEDS ORDERED: Acetaminophen 325 MG TAB PO PRN (10:15)
[2021-01-19] MEDS: Albumin 25% 25 GM/100 ML BOT IVPB SCH ×2 (11:23→17:06)
[2021-01-19] MEDS: Sodium Bicarbonate Tab 325 MG TAB PO SCH ×2 (15:17→22:25)
[2021-01-19] MEDS ORDERED: Morphine 2 MG/ML VIAL SLOW IVP SCH (22:00)
[2021-01-19] MEDS ORDERED: Polyethylene Glycol 3350 17 GM Packet PO SCH (22:15)
[2021-01-19 22:22] LABS: Lactic Acid 0.5 mmol/L (0.5-2.2)
[2021-01-19 22:37] LABS: Troponin I 0.021 ng/mL (< 0.028)
[2021-01-19 22:45] LABS: ALT (SGPT) 8 U/L (8-55); AST (SGOT) 10 U/L (5-34); Albumin 3.5 g/dL (3.4-4.8); Alkaline Phosphatase 56 U/L (40-110); Anion Gap 14 mmol/L (10-20); BUN (Urea Nitrogen) 27 mg/dL (9.8-20.1); Bilirubin, Total 0.4 mg/dL (0.2-1.2); Calc. Creatinine Clearance 28 mL/min (70-130); Carbon Dioxide 19 mmol/L (23-31); Chloride 111 mmol/L (98-107); Globulin 1.7 g/dL (2.4-3.5); Glucose 112 mg/dL (80-115); Potassium 3.7 mmol/L (3.5-5.1); Protein, Total 5.2 g/dL (5.8-8.1); Sodium 140 mmol/L (136-145)
[2021-01-20] MEDS: hydrALAZINE 20 MG/ML VIAL SLOW IVP PRN ×3 (00:47→21:36)
[2021-01-20 01:44] LABS: Troponin I Less than 0.010 ng/mL (< 0.028)
[2021-01-20] MEDS: Albumin 25% 25 GM/100 ML BOT IVPB SCH (03:28)
[2021-01-20] MEDS: Piperacillin/Tazobactam 2.25 GM in Sodium Chloride 0.9% 100 ML IVPB SCH ×3 (03:28→18:35)
[2021-01-20] MEDS ORDERED: Simethicone Chewable 80 MG TAB PO SCH (04:15)
[2021-01-20] MEDS ORDERED: Nitroglycerin 0.1mg/Hour PATCH TD SCH (04:15)
[2021-01-20] MEDS ORDERED: Simethicone Chewable 80 MG TAB PO PRN (04:41)
[2021-01-20] MEDS ORDERED: Morphine 4 MG/ML VIAL SLOW IVP SCH (05:00)
[2021-01-20] MEDS: Docusate 100 MG CAP PO PRN (05:10)
[2021-01-20] MEDS: Dicyclomine 20 MG TAB PO PRN (05:10)
[2021-01-20 06:01] LABS: Albumin 3.5 g/dL (3.4-4.8); Anion Gap 14 mmol/L (10-20); BUN (Urea Nitrogen) 25 mg/dL (9.8-20.1); BUN/Creatinine Ratio 13.09; Calc. Creatinine Clearance 30 mL/min (70-130); Carbon Dioxide 19 mmol/L (23-31); Chloride 112 mmol/L (98-107); Glucose 92 mg/dL (80-115); Phosphorus 4.6 mg/dL (2.3-4.7); Potassium 3.5 mmol/L (3.5-5.1); Sodium 141 mmol/L (136-145)
[2021-01-20 06:06] LABS: Troponin I 0.024 ng/mL (< 0.028)
[2021-01-20] MEDS: Cholecalciferol 1,000 UNITS (25 MCG) TAB PO SCH (08:36)
[2021-01-20] MEDS: Escitalopram Oxalate 10 mg Tablet PO SCH (08:37)
[2021-01-20] MEDS: hydrALAZINE 25 MG TAB PER TUBE SCH ×3 (08:38→20:36)
[2021-01-20] MEDS: Sodium Bicarbonate Tab 325 MG TAB PO SCH ×3 (08:38→20:35)
[2021-01-20] MEDS: Oxybutynin ER 5 MG TAB PO SCH (08:38)
[2021-01-20] MEDS: Spironolactone 100 MG TAB PO SCH (08:38)
[2021-01-20] MEDS: Apixaban 2.5 MG TAB PO SCH ×2 (08:39→20:36)
[2021-01-20] MEDS: Torsemide 10 MG TAB PO SCH (08:40)
[2021-01-20] MEDS ORDERED: Fleet Enema 133 ML BOT PR PRN (09:08)
[2021-01-20] MEDS: Polyethylene Glycol 3350 17 GM Packet PO PRN (11:53)
[2021-01-20] MEDS: Bisacodyl 10 MG SUPP PR PRN (11:53)
[2021-01-20] MEDS: traMADol HCl 50 MG TAB PO PRN (12:28)
[2021-01-20] MEDS: Lidocaine 5% Patch TD SCH (17:09)
[2021-01-20] MEDS ORDERED: Furosemide 40 MG/4 ML VIAL SLOW IVP SCH (22:45)
[2021-01-21] MEDS: traMADol HCl 50 MG TAB PO PRN ×2 (00:10→14:15)
[2021-01-21] MEDS: Lidocaine Patch Removal TOP SCH (04:07)
[2021-01-21] MEDS: Piperacillin/Tazobactam 2.25 GM in Sodium Chloride 0.9% 100 ML IVPB SCH ×3 (04:07→20:25)
[2021-01-21 04:47] LABS: #Basophils 0.1 thou/uL (0.0-0.2); #Eosinphils 0.4 thou/uL (0.0-0.7); #Lymphocytes 1.3 thou/uL (1.20-3.40); #Monocytes 0.7 thou/uL (0.11-0.59); #Neutrophils 9.5 thou/uL (1.40-6.50); %Basophils 0.6 % (0.0-1.0); %Eosinophils 3.3 % (0.0-10.0); %Lymphocytes 10.9 % (21.0-51.0); %Monocytes 5.9 % (0.0-10.0); %Neutrophils 79.3 % (42.0-75.0); Hemoglobin 8.8 g/dL (12.0-16.0); Mean Corpuscular HGB CONC 31.4 g/dL (32.0-36.0); Mean Corpuscular Hemoglobin 30.1 pg (27.0-31.0); Mean Corpuscular Volume 96.1 fL (78.0-98.0); Mean Platelet Volume 7.2 fL (7.4-10.4); Platelet Count 299 thou/uL (130-400); RBC Distribution Width 12.8 % (11.5-14.5); Red Blood Cell (RBC) Count 2.92 mill/uL (4.20-5.40)
[2021-01-21 05:10] LABS: Albumin 3.2 g/dL (3.4-4.8); Anion Gap 12 mmol/L (10-20); BUN (Urea Nitrogen) 26 mg/dL (9.8-20.1); BUN/Creatinine Ratio 13.54; Calc. Creatinine Clearance 30 mL/min (70-130); Calcium 8.3 mg/dL (7.8-10.44); Carbon Dioxide 21 mmol/L (23-31); Chloride 110 mmol/L (98-107); Glucose 83 mg/dL (80-115); Phosphorus 4.7 mg/dL (2.3-4.7); Potassium 3.3 mmol/L (3.5-5.1); Sodium 140 mmol/L (136-145)
[2021-01-21] MEDS: hydrALAZINE 20 MG/ML VIAL SLOW IVP PRN (07:59)
[2021-01-21] MEDS: Cholecalciferol 1,000 UNITS (25 MCG) TAB PO SCH (07:59)
[2021-01-21] MEDS: Spironolactone 100 MG TAB PO SCH (08:00)
[2021-01-21] MEDS: Sodium Bicarbonate Tab 325 MG TAB PO SCH ×3 (08:00→20:26)
[2021-01-21] MEDS: Oxybutynin ER 5 MG TAB PO SCH (08:00)
[2021-01-21] MEDS: Escitalopram Oxalate 10 mg Tablet PO SCH (08:00)
[2021-01-21] MEDS: Torsemide 10 MG TAB PO SCH (08:00)
[2021-01-21] MEDS: Apixaban 2.5 MG TAB PO SCH ×2 (08:01→20:25)
[2021-01-21] MEDS ORDERED: Potassium Chloride 20 MEQ TAB PO SCH (08:30)
[2021-01-21] MEDS: Lidocaine 5% Patch TD SCH (15:52)
[2021-01-21] MEDS: Polyethylene Glycol 3350 17 GM Packet PO PRN (20:25)
[2021-01-22] MEDS: Lidocaine Patch Removal TOP SCH (04:16)
[2021-01-22] MEDS: Piperacillin/Tazobactam 2.25 GM in Sodium Chloride 0.9% 100 ML IVPB SCH ×2 (04:24→12:17)
[2021-01-22] MEDS ORDERED: Furosemide 40 MG/4 ML VIAL SLOW IVP SCH (08:00)
[2021-01-22] MEDS: Apixaban 2.5 MG TAB PO SCH ×2 (09:47→21:24)
[2021-01-22] MEDS: Sodium Bicarbonate Tab 325 MG TAB PO SCH ×3 (09:47→21:24)
[2021-01-22] MEDS: Spironolactone 100 MG TAB PO SCH ×2 (09:47→11:19)
[2021-01-22 09:48] LABS: Hemoglobin 8.7 g/dL (12.0-16.0); Platelet Count 312 thou/uL (130-400)
[2021-01-22] MEDS: Cholecalciferol 1,000 UNITS (25 MCG) TAB PO SCH (09:48)
[2021-01-22] MEDS: Escitalopram Oxalate 10 mg Tablet PO SCH (09:48)
[2021-01-22] MEDS: Oxybutynin ER 5 MG TAB PO SCH (09:48)
[2021-01-22] MEDS: Torsemide 10 MG TAB PO SCH (09:48)
[2021-01-22] MEDS: traMADol HCl 50 MG TAB PO PRN ×2 (09:48→21:24)
[2021-01-22 10:07] LABS: Albumin 2.9 g/dL (3.4-4.8); Anion Gap 12 mmol/L (10-20); BUN (Urea Nitrogen) 24 mg/dL (9.8-20.1); BUN/Creatinine Ratio 11.71; Calc. Creatinine Clearance 28 mL/min (70-130); Calcium 8.2 mg/dL (7.8-10.44); Carbon Dioxide 18 mmol/L (23-31); Chloride 111 mmol/L (98-107); Glucose 92 mg/dL (80-115); Phosphorus 4.7 mg/dL (2.3-4.7); Potassium 3.7 mmol/L (3.5-5.1); Sodium 137 mmol/L (136-145)
[2021-01-22] MEDS ORDERED: Spironolactone 100 MG TAB PO SCH (10:45)
[2021-01-22] MEDS: Lidocaine 5% Patch TD SCH (15:55)
[2021-01-22] MEDS: Amoxicillin/Potassium Clav 875 MG TAB PO SCH (21:24)
[2021-01-23 04:53] LABS: Albumin 2.7 g/dL (3.4-4.8); Anion Gap 11 mmol/L (10-20); BUN (Urea Nitrogen) 25 mg/dL (9.8-20.1); BUN/Creatinine Ratio 11.36; Calc. Creatinine Clearance 26 mL/min (70-130); Calcium 8.2 mg/dL (7.8-10.44); Carbon Dioxide 21 mmol/L (23-31); Chloride 111 mmol/L (98-107); Glucose 99 mg/dL (80-115); Potassium 3.8 mmol/L (3.5-5.1); Sodium 139 mmol/L (136-145)
[2021-01-23] MEDS: Lidocaine Patch Removal TOP SCH (05:45)
[2021-01-23] MEDS: traMADol HCl 50 MG TAB PO PRN ×3 (06:24→22:03)
[2021-01-23] MEDS: Amoxicillin/Potassium Clav 875 MG TAB PO SCH ×2 (08:17→22:02)
[2021-01-23] MEDS: Apixaban 2.5 MG TAB PO SCH ×2 (08:17→22:03)
[2021-01-23] MEDS: Cholecalciferol 1,000 UNITS (25 MCG) TAB PO SCH (08:18)
[2021-01-23] MEDS: Escitalopram Oxalate 10 mg Tablet PO SCH (08:18)
[2021-01-23] MEDS: Sodium Bicarbonate Tab 325 MG TAB PO SCH ×3 (08:18→22:02)
[2021-01-23] MEDS: Oxybutynin ER 5 MG TAB PO SCH (08:18)
[2021-01-23] MEDS: Spironolactone 100 MG TAB PO SCH (08:18)
[2021-01-23] MEDS ORDERED: Torsemide 20 MG TAB PO SCH ×3 (09:00→09:15)
[2021-01-23] MEDS: Lidocaine 5% Patch TD SCH (18:06)
[2021-01-24] MEDS: Lidocaine Patch Removal TOP SCH (05:47)
[2021-01-24] MEDS ORDERED: Torsemide 20 MG TAB PO SCH (09:00)
[2021-01-24] MEDS ORDERED: Amoxicillin/Potassium Clav 500 MG TAB PO SCH (09:00)
[2021-01-24] MEDS: traMADol HCl 50 MG TAB PO PRN ×2 (09:05→21:07)
[2021-01-24] MEDS: Cholecalciferol 1,000 UNITS (25 MCG) TAB PO SCH (09:05)
[2021-01-24] MEDS: Escitalopram Oxalate 10 mg Tablet PO SCH (09:05)
[2021-01-24] MEDS: Sodium Bicarbonate Tab 325 MG TAB PO SCH ×3 (09:05→21:07)
[2021-01-24] MEDS: Oxybutynin ER 5 MG TAB PO SCH (09:05)
[2021-01-24] MEDS: Spironolactone 100 MG TAB PO SCH (09:05)
[2021-01-24] MEDS: Apixaban 2.5 MG TAB PO SCH ×2 (09:05→21:07)
[2021-01-24] MEDS: EPOETIN ALFA-EPBX (ESRD) 10,000 UNIT/ML VIAL SC SCH (09:06)
[2021-01-24 10:47] LABS: Mean Corpuscular HGB CONC 32.3 g/dL (32.0-36.0); Mean Corpuscular Volume 95.9 fL (78.0-98.0); Mean Platelet Volume 6.7 fL (7.4-10.4); Platelet Count 346 thou/uL (130-400); RBC Distribution Width 12.8 % (11.5-14.5); Red Blood Cell (RBC) Count 2.89 mill/uL (4.20-5.40)
[2021-01-24 11:09] LABS: Anion Gap 15 mmol/L (10-20); BUN (Urea Nitrogen) 25 mg/dL (9.8-20.1); Calc. Creatinine Clearance 24 mL/min (70-130); Calcium 7.8 mg/dL (7.8-10.44); Carbon Dioxide 18 mmol/L (23-31); Chloride 110 mmol/L (98-107); Glucose 109 mg/dL (80-115); Sodium 139 mmol/L (136-145)
[2021-01-24] MEDS ORDERED: Metolazone 2.5 MG TAB PO SCH (12:30)
[2021-01-24] MEDS: Lidocaine 5% Patch TD SCH (16:09)
[2021-01-25] MEDS: traMADol HCl 50 MG TAB PO PRN ×4 (02:14→23:13)
[2021-01-25] MEDS: Lidocaine Patch Removal TOP SCH (04:56)
[2021-01-25 06:24] LABS: Hemoglobin 8.5 g/dL (12.0-16.0); Mean Corpuscular HGB CONC 32.4 g/dL (32.0-36.0); Mean Corpuscular Hemoglobin 31.1 pg (27.0-31.0); Mean Corpuscular Volume 96.3 fL (78.0-98.0); Mean Platelet Volume 6.8 fL (7.4-10.4); Platelet Count 354 thou/uL (130-400); RBC Distribution Width 12.8 % (11.5-14.5); Red Blood Cell (RBC) Count 2.72 mill/uL (4.20-5.40); White Blood Cell (WBC) Count 10.4 thou/uL (4.8-10.8)
[2021-01-25 06:28] LABS: Anion Gap 12 mmol/L (10-20); BUN (Urea Nitrogen) 26 mg/dL (9.8-20.1); Calc. Creatinine Clearance 24 mL/min (70-130); Calcium 7.9 mg/dL (7.8-10.44); Carbon Dioxide 22 mmol/L (23-31); Chloride 107 mmol/L (98-107); Glucose 78 mg/dL (80-115); Potassium 3.9 mmol/L (3.5-5.1); Sodium 137 mmol/L (136-145)
[2021-01-25 06:31] LABS: Albumin 2.8 g/dL (3.4-4.8); Phosphorus 5.2 mg/dL (2.3-4.7)
[2021-01-25] MEDS ORDERED: Metolazone 2.5 MG TAB PO SCH (08:30)
[2021-01-25] MEDS ORDERED: Fleet Enema 133 ML BOT PR SCH (09:00)
[2021-01-25] MEDS: Apixaban 2.5 MG TAB PO SCH ×2 (09:32→20:41)
[2021-01-25] MEDS: Cholecalciferol 1,000 UNITS (25 MCG) TAB PO SCH (09:32)
[2021-01-25] MEDS: Escitalopram Oxalate 10 mg Tablet PO SCH (09:32)
[2021-01-25] MEDS: Metolazone 2.5 MG TAB PO SCH (09:32)
[2021-01-25] MEDS: Spironolactone 100 MG TAB PO SCH (09:33)
[2021-01-25] MEDS: Oxybutynin ER 5 MG TAB PO SCH (09:33)
[2021-01-25] MEDS: Torsemide 100 MG TAB PO SCH ×2 (09:33→17:00)
[2021-01-25] MEDS: Sodium Bicarbonate Tab 325 MG TAB PO SCH ×3 (09:33→20:41)
[2021-01-25] MEDS ORDERED: Megestrol Acetate 800 MG/20 ML UDCUP PO SCH (10:00)
[2021-01-25] MEDS: Fleet Enema 133 ML BOT PR SCH (15:02)
[2021-01-25] MEDS: Lidocaine 5% Patch TD SCH (16:07)
[2021-01-25] MEDS: Docusate 100 MG CAP PO PRN (17:00)
[2021-01-25] MEDS: Bisacodyl 10 MG SUPP PR PRN (17:00)
[2021-01-25] MEDS: Melatonin 3 MG TAB PO PRN (23:13)
[2021-01-26 04:58] LABS: Anion Gap 14 mmol/L (10-20); BUN (Urea Nitrogen) 27 mg/dL (9.8-20.1); Calc. Creatinine Clearance 24 mL/min (70-130); Carbon Dioxide 20 mmol/L (23-31); Chloride 108 mmol/L (98-107); Glucose 78 mg/dL (80-115); Potassium 4.3 mmol/L (3.5-5.1); Sodium 138 mmol/L (136-145)
[2021-01-26] MEDS: Lidocaine Patch Removal TOP SCH (05:50)
[2021-01-26] MEDS: Megestrol Acetate 800 MG/20 ML UDCUP PO SCH (08:12)
[2021-01-26] MEDS: Cholecalciferol 1,000 UNITS (25 MCG) TAB PO SCH (08:13)
[2021-01-26] MEDS: Spironolactone 100 MG TAB PO SCH (08:13)
[2021-01-26] MEDS: Oxybutynin ER 5 MG TAB PO SCH (08:14)
[2021-01-26] MEDS: Apixaban 2.5 MG TAB PO SCH ×2 (08:14→21:02)
[2021-01-26] MEDS: Escitalopram Oxalate 10 mg Tablet PO SCH (08:14)
[2021-01-26] MEDS: Metolazone 2.5 MG TAB PO SCH (08:14)
[2021-01-26] MEDS: Sodium Bicarbonate Tab 325 MG TAB PO SCH ×3 (08:14→21:02)
[2021-01-26] MEDS: Torsemide 100 MG TAB PO SCH ×2 (08:24→14:59)
[2021-01-26] MEDS: Ergocalciferol 1.25 MG(50,000 UNITS) CAP PO SCH (08:39)
[2021-01-26] MEDS ORDERED: Polyethylene Glycol 3350 17 GM Packet PO SCH (11:00)
[2021-01-26] MEDS: Bisacodyl 10 MG SUPP PR PRN (14:57)
[2021-01-26] MEDS: Fleet Enema 133 ML BOT PR SCH (17:50)
[2021-01-26] MEDS: Lidocaine 5% Patch TD SCH (18:11)
[2021-01-26] MEDS: traMADol HCl 50 MG TAB PO PRN (19:10)
[2021-01-26] MEDS: Polyethylene Glycol 3350 17 GM Packet PO SCH (21:02)
[2021-01-26] MEDS: Dicyclomine 20 MG TAB PO PRN (21:02)
[2021-01-26] MEDS: Morphine 4 MG/ML VIAL SLOW IVP SCH ×2 (21:59→22:30)
[2021-01-26] MEDS: hydrALAZINE 20 MG/ML VIAL SLOW IVP PRN (22:05)
[2021-01-26] MEDS: Melatonin 3 MG TAB PO PRN (23:50)
[2021-01-27 05:09] LABS: Anion Gap 15 mmol/L (10-20); BUN (Urea Nitrogen) 27 mg/dL (9.8-20.1); Calc. Creatinine Clearance 23 mL/min (70-130); Calcium 8.1 mg/dL (7.8-10.44); Carbon Dioxide 19 mmol/L (23-31); Chloride 107 mmol/L (98-107); Glucose 72 mg/dL (80-115); Sodium 137 mmol/L (136-145)
[2021-01-27] MEDS: traMADol HCl 50 MG TAB PO PRN (05:19)
[2021-01-27] MEDS: Lidocaine Patch Removal TOP SCH (05:34)
[2021-01-27] MEDS: Megestrol Acetate 800 MG/20 ML UDCUP PO SCH (09:00)
[2021-01-27] MEDS: Escitalopram Oxalate 10 mg Tablet PO SCH (09:00)
[2021-01-27] MEDS: Spironolactone 100 MG TAB PO SCH (09:00)
[2021-01-27] MEDS: Sodium Bicarbonate Tab 325 MG TAB PO SCH ×2 (09:00→21:31)
[2021-01-27] MEDS: Oxybutynin ER 5 MG TAB PO SCH (09:01)
[2021-01-27] MEDS: Cholecalciferol 1,000 UNITS (25 MCG) TAB PO SCH (09:01)
[2021-01-27] MEDS: Metolazone 2.5 MG TAB PO SCH (09:01)
[2021-01-27] MEDS: Apixaban 2.5 MG TAB PO SCH ×2 (09:01→21:32)
[2021-01-27] MEDS: Polyethylene Glycol 3350 17 GM Packet PO SCH ×2 (09:02→21:32)
[2021-01-27] MEDS: Torsemide 100 MG TAB PO SCH ×2 (09:07→16:14)
[2021-01-27 11:58] LABS: Clarity Very Cloudy (Clear)
[2021-01-27 11:59] LABS: Specific Gravity, Urine 1.009 (1.002-1.036)
[2021-01-27 12:02] LABS: Leukocyte Unable to Interpret (Negative); Nitrite Unable to Interpret (Negative); Protein, Urine (Dipstick) Unable to Interpret mg/dL (Neg-Trace); pH, Urine 6.2 (5.0-9.0)
[2021-01-27 12:04] LABS: Bilirubin Unable to Interpret (Negative); Blood, Urine Unable to Interpret (Negative); Glucose, Urine (Dipstick) Unable to Interpret mg/dL (Negative); Ketone, Urine Unable to Interpret mg/dL (Negative); Urobilinogen UNABLE TO INTERPRET mg/dL (Less than 2)
[2021-01-27 12:06] LABS: Bacteria/HPF 3+ HPF (None Seen); WBC/HPF Greater Than 50 HPF (0-3); Yeast-Budding Rare HPF (None Seen)
[2021-01-27] MEDS: Lidocaine 5% Patch TD SCH (16:08)
[2021-01-27] MEDS: Fleet Enema 133 ML BOT PR SCH (16:14)
[2021-01-28 04:32] LABS: Hemoglobin 9.1 g/dL (12.0-16.0); Platelet Count 397 thou/uL (130-400)
[2021-01-28 04:51] LABS: Anion Gap 12 mmol/L (10-20); BUN (Urea Nitrogen) 26 mg/dL (9.8-20.1); Calc. Creatinine Clearance 24 mL/min (70-130); Calcium 8.3 mg/dL (7.8-10.44); Carbon Dioxide 23 mmol/L (23-31); Chloride 105 mmol/L (98-107); Glucose 84 mg/dL (80-115); Sodium 136 mmol/L (136-145)
[2021-01-28] MEDS: Lidocaine Patch Removal TOP SCH (06:05)
[2021-01-28] MEDS: Megestrol Acetate 800 MG/20 ML UDCUP PO SCH (08:58)
[2021-01-28] MEDS: Oxybutynin ER 5 MG TAB PO SCH (08:59)
[2021-01-28] MEDS: Torsemide 100 MG TAB PO SCH ×2 (08:59→14:39)
[2021-01-28] MEDS: Sodium Bicarbonate Tab 325 MG TAB PO SCH ×2 (08:59→21:34)
[2021-01-28] MEDS: Metolazone 2.5 MG TAB PO SCH (08:59)
[2021-01-28] MEDS: Apixaban 2.5 MG TAB PO SCH ×2 (09:00→21:35)
[2021-01-28] MEDS: Escitalopram Oxalate 10 mg Tablet PO SCH (09:00)
[2021-01-28] MEDS: Spironolactone 100 MG TAB PO SCH (09:00)
[2021-01-28] MEDS ORDERED: hydrALAZINE 25 MG TAB PO SCH (09:00)
[2021-01-28] MEDS: Cholecalciferol 1,000 UNITS (25 MCG) TAB PO SCH (09:00)
[2021-01-28] MEDS: Polyethylene Glycol 3350 17 GM Packet PO SCH ×2 (09:01→21:35)
[2021-01-28] MEDS: traMADol HCl 50 MG TAB PO PRN ×2 (09:02→22:30)
[2021-01-28] MEDS: Fleet Enema 133 ML BOT PR SCH (14:10)
[2021-01-28] MEDS: Lidocaine 5% Patch TD SCH (17:58)
[2021-01-29 04:56] LABS: Albumin 2.7 g/dL (3.4-4.8); Phosphorus 3.8 mg/dL (2.3-4.7)
[2021-01-29 05:03] LABS: Anion Gap 14 mmol/L (10-20); BUN (Urea Nitrogen) 25 mg/dL (9.8-20.1); Calc. Creatinine Clearance 23 mL/min (70-130); Calcium 8.9 mg/dL (7.8-10.44); Carbon Dioxide 26 mmol/L (23-31); Chloride 102 mmol/L (98-107); Glucose 80 mg/dL (80-115); Magnesium 2.1 mg/dL (1.6-2.6); Potassium 3.9 mmol/L (3.5-5.1); Sodium 138 mmol/L (136-145)
[2021-01-29] MEDS: Lidocaine Patch Removal TOP SCH (05:09)
[2021-01-29] MEDS: Metolazone 2.5 MG TAB PO SCH (09:22)
[2021-01-29] MEDS: Apixaban 2.5 MG TAB PO SCH (09:23)
[2021-01-29] MEDS: Cholecalciferol 1,000 UNITS (25 MCG) TAB PO SCH (09:23)
[2021-01-29] MEDS: Escitalopram Oxalate 10 mg Tablet PO SCH (09:23)
[2021-01-29] MEDS: Oxybutynin ER 5 MG TAB PO SCH (09:24)
[2021-01-29] MEDS: Polyethylene Glycol 3350 17 GM Packet PO SCH (09:25)
[2021-01-29] MEDS: Spironolactone 100 MG TAB PO SCH (09:26)
[2021-01-29] MEDS: Torsemide 100 MG TAB PO SCH ×2 (09:26→14:34)
[2021-01-29] MEDS: Sodium Bicarbonate Tab 325 MG TAB PO SCH (09:26)
[2021-01-29] MEDS: Megestrol Acetate 800 MG/20 ML UDCUP PO SCH (09:27)
[2021-01-29] MEDS: Fleet Enema 133 ML BOT PR SCH (14:34)
[2021-01-29 15:54] VITALS: BP 138/67; TEMP 98.8
== END 2021-01-29 17:31 | DRG 698 ==
LOC: ERS 19:21 → T4-A 01-08 00:11 → CCU 01-15 07:31 → 2NO 01-18 15:29
PROVIDERS: ADMIT Internal Medicine; ATTEND Internal Medicine
PROC: 02HV33Z Insertion of Infusion Device into Superior Vena Cava, Percutaneous Approach (ICD-10-PCS; 2021-01-10)
PROC: 5A1945Z Respiratory Ventilation, 24-96 Consecutive Hours (ICD-10-PCS; principal; 2021-01-16)
PROC: 5A12012 Performance of Cardiac Output, Single, Manual (ICD-10-PCS; 2021-01-16)
PROC: 3E033XZ Introduction of Vasopressor into Peripheral Vein, Percutaneous Approach (ICD-10-PCS; 2021-01-16)
PROC: 0BH17EZ Insertion of Endotracheal Airway into Trachea, Via Natural or Artificial Opening (ICD-10-PCS; 2021-01-16)
PROC: 30233N1 Transfusion of Nonautologous Red Blood Cells into Peripheral Vein, Percutaneous Approach (ICD-10-PCS; 2021-01-16)
PROC: 0DH67UZ Insertion of Feeding Device into Stomach, Via Natural or Artificial Opening (ICD-10-PCS; 2021-01-17)
PROC: 0T2BX0Z Change Drainage Device in Bladder, External Approach (ICD-10-PCS; 2021-01-27)
DX: T83.511A Infection and inflammatory reaction due to indwelling urethral catheter, initial encounter (principal); E43 Unspecified severe protein-calorie malnutrition; G93.41 Metabolic encephalopathy; I46.9 Cardiac arrest, cause unspecified; J96.01 Acute respiratory failure with hypoxia; N17.9 Acute kidney failure, unspecified; N04.9 Nephrotic syndrome with unspecified morphologic changes; J90 Pleural effusion, not elsewhere classified; E87.2 Acidosis; M80.08XA Age-related osteoporosis with current pathological fracture, vertebra(e), initial encounter for fracture; D62 Acute posthemorrhagic anemia; J98.11 Atelectasis; J81.1 Chronic pulmonary edema; E87.1 Hypo-osmolality and hyponatremia; Z20.822 Contact with and (suspected) exposure to COVID-19; G89.29 Other chronic pain; N31.9 Neuromuscular dysfunction of bladder, unspecified; N39.0 Urinary tract infection, site not specified; Y84.6 Urinary catheterization as the cause of abnormal reaction of the patient, or of later complication, without mention of misadventure at the time of the procedure; R33.9 Retention of urine, unspecified; N18.30 Chronic kidney disease, stage 3 unspecified; E87.8 Other disorders of electrolyte and fluid balance, not elsewhere classified; M79.7 Fibromyalgia; E11.22 Type 2 diabetes mellitus with diabetic chronic kidney disease; N26.9 Renal sclerosis, unspecified; E11.40 Type 2 diabetes mellitus with diabetic neuropathy, unspecified; D63.1 Anemia in chronic kidney disease; E88.09 Other disorders of plasma-protein metabolism, not elsewhere classified; B96.20 Unspecified Escherichia coli [E. coli] as the cause of diseases classified elsewhere; R62.7 Adult failure to thrive; K59.09 Other constipation; E87.70 Fluid overload, unspecified; D69.6 Thrombocytopenia, unspecified; I44.30 Unspecified atrioventricular block; L27.1 Localized skin eruption due to drugs and medicaments taken internally; T50.0X5A Adverse effect of mineralocorticoids and their antagonists, initial encounter; E87.5 Hyperkalemia; R11.0 Nausea; T45.515A Adverse effect of anticoagulants, initial encounter; E87.6 Hypokalemia; T50.1X5A Adverse effect of loop [high-ceiling] diuretics, initial encounter; T83.098A Other mechanical complication of other urinary catheter, initial encounter; Z87.440 Personal history of urinary (tract) infections; Z88.2 Allergy status to sulfonamides; Z79.899 Other long term (current) drug therapy; Z79.4 Long term (current) use of insulin; Z79.890 Hormone replacement therapy; Z90.710 Acquired absence of both cervix and uterus; Z98.890 Other specified postprocedural states; Z98.1 Arthrodesis status; Z74.01 Bed confinement status; Z68.24 Body mass index [BMI] 24.0-24.9, adult; Z78.1 Physical restraint status; I95.89 Other hypotension; I10 Essential (primary) hypertension
CPT/HCPCS: 36415; 36416; 36430; 36600; 71045; 71046; 71250; 72141; 72146; 72148; 74018; 74177; 78451; 80048; 80053; 80069; 80170; 80202; 81001; 81003; 81015; 82040; 82306; 82565; 82570; 82728; 82805; 83036; 83540; 83550; 83605; 83690; 83735; 83880; 83970; 84100; 84156; 84484; 85014; 85018; 85025; 85027; 85049; 86769; 86850; 86900; 86901; 87040; 87077; 87086; 87186; 93005; 93010; 93306; 93975; 94002; 94003; 96365; 96367; A9540; J0171; J0360; J0696; J1580; J1650; J1815; J1940; J2270; J2543; J2704; J3010; J3370; J3480; J3490; J7050; P9016; P9047; Q0162; Q0167; Q5105; Q9967; U0002

== ENCOUNTER 2021-04-05 11:46 | Emergency (ER) | payer OTHER ==
[2021-04-05 12:45] LABS: #Basophils 0.1 thou/uL (0.0-0.2); #Eosinphils 0.4 thou/uL (0.0-0.7); #Lymphocytes 1.6 thou/uL (1.20-3.40); #Monocytes 0.7 thou/uL (0.11-0.59); #Neutrophils 9.2 thou/uL (1.40-6.50); %Basophils 0.5 % (0.0-1.0); %Lymphocytes 13.3 % (21.0-51.0); %Monocytes 6.1 % (0.0-10.0); Hemoglobin 9.4 g/dL (12.0-16.0); Mean Corpuscular Hemoglobin 31.4 pg (27.0-31.0); Mean Corpuscular Volume 92.3 fL (78.0-98.0); Mean Platelet Volume 6.8 fL (7.4-10.4); Platelet Count 373 thou/uL (130-400); RBC Distribution Width 13.4 % (11.5-14.5); White Blood Cell (WBC) Count 11.9 thou/uL (4.8-10.8)
[2021-04-05 13:00] LABS: Bilirubin Negative (Negative); Blood, Urine 1+ (Negative); Clarity Extra Turbid (Clear); Glucose, Urine (Dipstick) 100 mg/dL (Negative); Ketone, Urine Negative (Negative); Leukocyte 500 Leu/uL (Negative); Nitrite Negative (Negative); Protein, Urine (Dipstick) 300 mg/dL (Neg-Trace); Specific Gravity, Urine 1.012 (1.002-1.036); Urobilinogen Normal mg/dL (Less than 2); WBC/HPF Greater than 50 HPF (0-3); pH, Urine 6.5 (5.0-9.0)
[2021-04-05 13:02] LABS: Bacteria/HPF 4+ HPF (None Seen); Squamous Epithelial 0-3 HPF (0-3); Yeast-Budding Rare HPF (None Seen)
[2021-04-05 13:09] LABS: ALT (SGPT) 18 U/L (8-55); AST (SGOT) 19 U/L (5-34); Albumin 2.6 g/dL (3.4-4.8); Alkaline Phosphatase 98 U/L (40-110); Anion Gap 15 mmol/L (10-20); BUN (Urea Nitrogen) 33 mg/dL (9.8-20.1); Bilirubin, Total 0.3 mg/dL (0.2-1.2); Calc. Creatinine Clearance 0 mL/min (70-130); Carbon Dioxide 17 mmol/L (23-31); Chloride 109 mmol/L (98-107); Globulin 2.6 g/dL (2.4-3.5); Glucose 82 mg/dL (80-115); Lipase 6 U/L (8-78); Protein, Total 5.2 g/dL (5.8-8.1); Sodium 136 mmol/L (136-145)
[2021-04-05] MEDS ORDERED: Morphine 4 MG/ML VIAL ONE (13:42)
[2021-04-05] MEDS ORDERED: Ondansetron PF 4 MG/2 ML Vial ONE (13:43)
[2021-04-05] MEDS ORDERED: cefTRIAXone\\ROCEPHIN 1 GM VIAL ONE (13:43)
== END 2021-04-05 15:50 ==
LOC: ERS 11:46
DX: N39.0 Urinary tract infection, site not specified (principal); J90 Pleural effusion, not elsewhere classified; R60.0 Localized edema; I10 Essential (primary) hypertension; E11.9 Type 2 diabetes mellitus without complications; K58.9 Irritable bowel syndrome, unspecified; Z86.16 Personal history of COVID-19
CPT/HCPCS: 36415; 74176; 80053; 81003; 81015; 83690; 85025; 87077; 87086; 87186; 93005; 96365; 96374; 96375; J0696; J2270; J2405

== ENCOUNTER 2021-04-12 21:10 | Inpatient (IN) | payer OTHER ==
[2021-04-12] MEDS ORDERED: Ondansetron PF 4 MG/2 ML Vial ONE (22:10)
[2021-04-12] MEDS ORDERED: Morphine 2 MG/ML VIAL ONE ×2 (22:10→23:55)
[2021-04-12 22:43] LABS: #Basophils 0.1 thou/uL (0.0-0.2); #Eosinphils 0.3 thou/uL (0.0-0.7); #Lymphocytes 1.3 thou/uL (1.20-3.40); #Monocytes 0.7 thou/uL (0.11-0.59); #Neutrophils 7.4 thou/uL (1.40-6.50); %Basophils 1.1 % (0.0-1.0); %Eosinophils 2.9 % (0.0-10.0); %Lymphocytes 13.3 % (21.0-51.0); %Monocytes 6.8 % (0.0-10.0); %Neutrophils 75.9 % (42.0-75.0); Mean Corpuscular HGB CONC 34.3 g/dL (32.0-36.0); Mean Corpuscular Hemoglobin 31.8 pg (27.0-31.0); Mean Corpuscular Volume 92.6 fL (78.0-98.0); Mean Platelet Volume 6.6 fL (7.4-10.4); Platelet Count 340 thou/uL (130-400); RBC Distribution Width 13.6 % (11.5-14.5); Red Blood Cell (RBC) Count 2.82 mill/uL (4.20-5.40); White Blood Cell (WBC) Count 9.7 thou/uL (4.8-10.8)
[2021-04-12 22:47] LABS: Bilirubin Negative (Negative); Blood, Urine 1+ (Negative); Clarity Turbid (Clear); Glucose, Urine (Dipstick) 200 mg/dL (Negative); Ketone, Urine Trace mg/dL (Negative); Leukocyte 250 Leu/uL (Negative); Nitrite 1+ (Negative); Protein, Urine (Dipstick) 600 mg/dL (Neg-Trace); Specific Gravity, Urine 1.019 (1.002-1.036); Squamous Epithelial 0-3 HPF (0-3); Urobilinogen Normal mg/dL (Less than 2); Yeast-Budding 2+ HPF (None Seen); Yeast-Hyphae 1+ HPF (None Seen); pH, Urine 7.5 (5.0-9.0)
[2021-04-12 23:06] LABS: Bacteria/HPF 1+ HPF (None Seen)
[2021-04-12 23:12] LABS: ALT (SGPT) 18 U/L (8-55); AST (SGOT) 24 U/L (5-34); Albumin 2.7 g/dL (3.4-4.8); Alkaline Phosphatase 89 U/L (40-110); BUN (Urea Nitrogen) 27 mg/dL (9.8-20.1); Bilirubin, Total 0.2 mg/dL (0.2-1.2); CK (CPK) 71 U/L (29-168); Calc. Creatinine Clearance 0 mL/min (70-130); Calcium 8.1 mg/dL (7.8-10.44); Carbon Dioxide 20 mmol/L (23-31); Globulin 2.8 g/dL (2.4-3.5); Glucose 88 mg/dL (80-115); Lipase 6 U/L (8-78); Protein, Total 5.5 g/dL (5.8-8.1)
[2021-04-12 23:41] LABS: Chloride 110 mmol/L (98-107); Potassium 5.2 mmol/L (3.5-5.1); Sodium 136 mmol/L (136-145)
[2021-04-13 00:05] LABS: Anion Gap 13 mmol/L (10-20)
[2021-04-13] MEDS ORDERED: Aspirin Chewable 81 MG TAB ONE (01:37)
[2021-04-13] MEDS ORDERED: Furosemide 40 MG/4 ML VIAL ONE ×3 (01:37→14:27)
[2021-04-13] MEDS ORDERED: Ondansetron PF 4 MG/2 ML Vial IVP PRN (02:05)
[2021-04-13] MEDS ORDERED: Acetaminophen 325 MG TAB PO PRN (02:05)
[2021-04-13] MEDS ORDERED: Senokot S 8.6-50 MG TAB PO PRN (02:05)
[2021-04-13] MEDS ORDERED: traMADol HCl 50 MG TAB PO PRN (02:12)
[2021-04-13] MEDS ORDERED: Simethicone Chewable 80 MG TAB PO PRN (02:12)
[2021-04-13] MEDS ORDERED: Calcium Carbonate 500 MG ChewTAB PO PRN (02:12)
[2021-04-13] MEDS ORDERED: Dicyclomine 20 MG TAB PO PRN (02:12)
[2021-04-13] MEDS ORDERED: ALPRAZolam 0.25 MG TAB PO PRN (02:12)
[2021-04-13] MEDS ORDERED: cefTRIAXone\\ROCEPHIN 2 GM in Sodium Chloride 0.9% 100 ML IVPB SCH (02:30)
[2021-04-13 03:18] LABS: Troponin I Less than 0.010 ng/mL (< 0.028)
[2021-04-13] MEDS ORDERED: cefTRIAXone\\ROCEPHIN 2 GM VIAL ONE (04:27)
[2021-04-13 05:22] LABS: Anion Gap 15 mmol/L (10-20); BUN (Urea Nitrogen) 27 mg/dL (9.8-20.1); Calc. Creatinine Clearance 30 mL/min (70-130); Calcium 7.7 mg/dL (7.8-10.44); Carbon Dioxide 13 mmol/L (23-31); Chloride 115 mmol/L (98-107); Glucose 74 mg/dL (80-115); Magnesium 2.6 mg/dL (1.6-2.6); Potassium 5.6 mmol/L (3.5-5.1); Sodium 137 mmol/L (136-145)
[2021-04-13 05:27] LABS: Troponin I Less than 0.010 ng/mL (< 0.028)
[2021-04-13] MEDS ORDERED: Dextrose 50% Abboject 50 ML SYRINGE SLOW IVP PRN (05:55)
[2021-04-13] MEDS ORDERED: Insulin Regular 300 UNITS/3 ML VIAL IVP SCH (06:00)
[2021-04-13] MEDS ORDERED: Sodium Bicarb 50 MEQ/50 ML VIAL IVP SCH (06:00)
[2021-04-13] MEDS: Furosemide 40 MG/4 ML VIAL SLOW IVP SCH ×2 (06:14→14:40)
[2021-04-13 06:40] LABS: #Basophils 0.1 thou/uL (0.0-0.2); #Eosinphils 0.5 thou/uL (0.0-0.7); #Lymphocytes 2.3 thou/uL (1.20-3.40); #Monocytes 0.6 thou/uL (0.11-0.59); #Neutrophils 5.9 thou/uL (1.40-6.50); %Basophils 1.4 % (0.0-1.0); %Eosinophils 5.1 % (0.0-10.0); %Lymphocytes 24.2 % (21.0-51.0); %Monocytes 5.9 % (0.0-10.0); %Neutrophils 63.4 % (42.0-75.0); Hemoglobin 9.1 g/dL (12.0-16.0); Mean Corpuscular Hemoglobin 30.7 pg (27.0-31.0); Mean Platelet Volume 6.3 fL (7.4-10.4); Platelet Count 313 thou/uL (130-400); RBC Distribution Width 13.8 % (11.5-14.5); Red Blood Cell (RBC) Count 2.96 mill/uL (4.20-5.40); White Blood Cell (WBC) Count 9.3 thou/uL (4.8-10.8)
[2021-04-13] MEDS ORDERED: Sodium Bicarb 50 MEQ/50 ML Abboject 8.4% SYRINGE ONE (07:54)
[2021-04-13] MEDS ORDERED: Insulin Regular 300 UNITS/3 ML VIAL ONE (07:54)
[2021-04-13] MEDS ORDERED: Dextrose 50% Abboject 50 ML SYRINGE ONE (08:04)
[2021-04-13] MEDS ORDERED: traMADol HCl 50 MG TAB ONE (08:05)
[2021-04-13] MEDS ORDERED: Morphine 4 MG/ML VIAL ONE ×2 (08:19→14:27)
[2021-04-13] MEDS: Morphine 2 MG/ML VIAL SLOW IVP PRN ×3 (08:26→20:49)
[2021-04-13] MEDS ORDERED: Enoxaparin Sodium 40 MG/0.4 ML SYRINGE SC SCH (09:00)
[2021-04-13] MEDS ORDERED: Ergocalciferol 1.25 MG(50,000 UNITS) CAP PO SCH (09:00)
[2021-04-13] MEDS ORDERED: Enoxaparin Sodium 40 MG/0.4 ML SYRINGE ONE (10:40)
[2021-04-13] MEDS: Escitalopram Oxalate 10 mg Tablet PO SCH (10:50)
[2021-04-13] MEDS: Sodium Bicarbonate Tab 325 MG TAB PO SCH ×2 (10:50→20:54)
[2021-04-13] MEDS: hydrALAZINE 25 MG TAB PO SCH ×3 (10:50→20:53)
[2021-04-13] MEDS: Metolazone 2.5 MG TAB PO SCH (10:50)
[2021-04-13] MEDS: Cholecalciferol (Vitamin D3) 400 UNITS TAB PO SCH (10:50)
[2021-04-13] MEDS: Ergocalciferol 1.25 MG(50,000 UNITS) CAP PO SCH (12:00)
[2021-04-13 13:08] LABS: Anion Gap 8 mmol/L (10-20); BUN (Urea Nitrogen) 26 mg/dL (9.8-20.1); Calc. Creatinine Clearance 28 mL/min (70-130); Calcium 8.2 mg/dL (7.8-10.44); Carbon Dioxide 24 mmol/L (23-31); Chloride 107 mmol/L (98-107); Potassium 4.4 mmol/L (3.5-5.1); Sodium 135 mmol/L (136-145)
[2021-04-13 13:13] LABS: Glucose 42 mg/dL (80-115)
[2021-04-13] MEDS: cefTRIAXone\\ROCEPHIN 1 GM in Sodium Chloride 0.9% 100 ML IVPB SCH (20:54)
[2021-04-13] MEDS: Melatonin 3 MG TAB PO PRN (21:05)
[2021-04-13] MEDS: HYDROcodone/Acetaminophen 5/325 mg Tablet PO PRN (23:11)
[2021-04-14] MEDS: Morphine 2 MG/ML VIAL SLOW IVP PRN (02:40)
[2021-04-14 04:54] LABS: #Basophils 0.1 thou/uL (0.0-0.2); #Eosinphils 0.5 thou/uL (0.0-0.7); #Lymphocytes 1.8 thou/uL (1.20-3.40); #Monocytes 0.7 thou/uL (0.11-0.59); #Neutrophils 6.8 thou/uL (1.40-6.50); %Basophils 0.8 % (0.0-1.0); %Eosinophils 5.5 % (0.0-10.0); %Lymphocytes 18.1 % (21.0-51.0); %Monocytes 7.1 % (0.0-10.0); %Neutrophils 68.5 % (42.0-75.0); Hemoglobin 8.8 g/dL (12.0-16.0); Mean Corpuscular HGB CONC 32.8 g/dL (32.0-36.0); Mean Corpuscular Hemoglobin 30.6 pg (27.0-31.0); Mean Corpuscular Volume 93.4 fL (78.0-98.0); Mean Platelet Volume 6.6 fL (7.4-10.4); Platelet Count 324 thou/uL (130-400); RBC Distribution Width 13.8 % (11.5-14.5); Red Blood Cell (RBC) Count 2.89 mill/uL (4.20-5.40)
[2021-04-14 05:01] LABS: ALT (SGPT) 11 U/L (8-55); AST (SGOT) 12 U/L (5-34); Albumin 2.6 g/dL (3.4-4.8); Alkaline Phosphatase 87 U/L (40-110); Anion Gap 12 mmol/L (10-20); BUN (Urea Nitrogen) 34 mg/dL (9.8-20.1); Bilirubin, Total Less than 0.2 mg/dL (0.2-1.2); Calc. Creatinine Clearance 25 mL/min (70-130); Carbon Dioxide 22 mmol/L (23-31); Chloride 108 mmol/L (98-107); Globulin 2.6 g/dL (2.4-3.5); Glucose 97 mg/dL (80-115); Potassium 4.8 mmol/L (3.5-5.1); Protein, Total 5.2 g/dL (5.8-8.1); Sodium 137 mmol/L (136-145)
[2021-04-14] MEDS: HYDROcodone/Acetaminophen 5/325 mg Tablet PO PRN ×3 (06:03→21:43)
[2021-04-14] MEDS: Furosemide 40 MG/4 ML VIAL SLOW IVP SCH ×2 (06:05→15:35)
[2021-04-14] MEDS ORDERED: Dextrose 50% Abboject 50 ML SYRINGE SLOW IVP PRN (06:31)
[2021-04-14] MEDS ORDERED: Dextrose 5% in Water 1,000 ML IV PRN (06:31)
[2021-04-14] MEDS: Metolazone 2.5 MG TAB PO SCH (09:25)
[2021-04-14] MEDS: Cholecalciferol (Vitamin D3) 400 UNITS TAB PO SCH (09:25)
[2021-04-14] MEDS: Sodium Bicarbonate Tab 325 MG TAB PO SCH ×2 (09:25→21:21)
[2021-04-14] MEDS: Ergocalciferol 1.25 MG(50,000 UNITS) CAP PO SCH (09:25)
[2021-04-14] MEDS: Enoxaparin Sodium 30 MG/0.3 ML SYRINGE SC SCH (09:25)
[2021-04-14] MEDS: Escitalopram Oxalate 10 mg Tablet PO SCH (09:25)
[2021-04-14] MEDS: hydrALAZINE 25 MG TAB PO SCH ×3 (09:25→21:20)
[2021-04-14] MEDS: cefTRIAXone\\ROCEPHIN 1 GM in Sodium Chloride 0.9% 100 ML IVPB SCH (21:20)
[2021-04-14] MEDS: Polyethylene Glycol 3350 17 GM Packet PO SCH (21:21)
[2021-04-14] MEDS: Melatonin 3 MG TAB PO PRN (21:43)
[2021-04-15 05:22] LABS: Hemoglobin 8.8 g/dL (12.0-16.0)
[2021-04-15] MEDS: HYDROcodone/Acetaminophen 5/325 mg Tablet PO PRN ×3 (05:39→17:28)
[2021-04-15] MEDS: Furosemide 40 MG/4 ML VIAL SLOW IVP SCH ×2 (05:40→16:37)
[2021-04-15 05:42] LABS: Albumin 2.4 g/dL (3.4-4.8); Anion Gap 11 mmol/L (10-20); BUN (Urea Nitrogen) 33 mg/dL (9.8-20.1); BUN/Creatinine Ratio 15.28; Calc. Creatinine Clearance 25 mL/min (70-130); Calcium 7.9 mg/dL (7.8-10.44); Carbon Dioxide 24 mmol/L (23-31); Chloride 106 mmol/L (98-107); Glucose 82 mg/dL (80-115); Iron 39 ug/dL (50-170); Iron Binding Capacity, Total 158 mcg/dL (265-497); Phosphorus 5.5 mg/dL (2.3-4.7); Potassium 4.3 mmol/L (3.5-5.1); Sodium 137 mmol/L (136-145)
[2021-04-15] MEDS ORDERED: EPOETIN ALFA-EPBX (ESRD) 10,000 UNIT/ML VIAL SC SCH (09:00)
[2021-04-15] MEDS: Enoxaparin Sodium 30 MG/0.3 ML SYRINGE SC SCH (09:34)
[2021-04-15] MEDS: Metolazone 2.5 MG TAB PO SCH (09:34)
[2021-04-15] MEDS: hydrALAZINE 25 MG TAB PO SCH ×3 (09:34→20:37)
[2021-04-15] MEDS: Cholecalciferol (Vitamin D3) 400 UNITS TAB PO SCH (09:34)
[2021-04-15] MEDS: Escitalopram Oxalate 10 mg Tablet PO SCH (09:34)
[2021-04-15] MEDS: Ergocalciferol 1.25 MG(50,000 UNITS) CAP PO SCH (09:34)
[2021-04-15] MEDS: Sodium Bicarbonate Tab 325 MG TAB PO SCH ×2 (09:35→20:37)
[2021-04-15] MEDS: Polyethylene Glycol 3350 17 GM Packet PO SCH ×2 (09:35→20:37)
[2021-04-15] MEDS: cefTRIAXone\\ROCEPHIN 1 GM in Sodium Chloride 0.9% 100 ML IVPB SCH (20:37)
[2021-04-15] MEDS: Melatonin 3 MG TAB PO PRN (20:38)
[2021-04-16] MEDS: HYDROcodone/Acetaminophen 5/325 mg Tablet PO PRN ×4 (01:51→20:35)
[2021-04-16] MEDS: Furosemide 40 MG/4 ML VIAL SLOW IVP SCH ×2 (04:57→13:40)
[2021-04-16 08:04] LABS: Albumin 2.6 g/dL (3.4-4.8); Anion Gap 13 mmol/L (10-20); BUN (Urea Nitrogen) 37 mg/dL (9.8-20.1); BUN/Creatinine Ratio 16.97; Calc. Creatinine Clearance 25 mL/min (70-130); Calcium 8.3 mg/dL (7.8-10.44); Carbon Dioxide 27 mmol/L (23-31); Chloride 103 mmol/L (98-107); Glucose 85 mg/dL (80-115); Phosphorus 5.3 mg/dL (2.3-4.7); Potassium 4.6 mmol/L (3.5-5.1); Sodium 138 mmol/L (136-145)
[2021-04-16] MEDS: Polyethylene Glycol 3350 17 GM Packet PO SCH ×2 (09:25→20:35)
[2021-04-16] MEDS: Metolazone 2.5 MG TAB PO SCH (09:25)
[2021-04-16] MEDS: Cholecalciferol (Vitamin D3) 400 UNITS TAB PO SCH (09:25)
[2021-04-16] MEDS: Sodium Bicarbonate Tab 325 MG TAB PO SCH ×2 (09:26→20:35)
[2021-04-16] MEDS: hydrALAZINE 25 MG TAB PO SCH ×3 (09:26→20:35)
[2021-04-16] MEDS: Escitalopram Oxalate 10 mg Tablet PO SCH (09:27)
[2021-04-16] MEDS: Enoxaparin Sodium 30 MG/0.3 ML SYRINGE SC SCH (09:27)
[2021-04-16] MEDS: Ergocalciferol 1.25 MG(50,000 UNITS) CAP PO SCH (09:27)
[2021-04-16] MEDS: Sevelamer Carbonate 800 MG TAB PO SCH ×2 (12:37→16:23)
[2021-04-16] MEDS ORDERED: Fleet Enema 133 ML BOT PR SCH (13:00)
[2021-04-16] MEDS: Ferrous Sulfate 325 MG TAB PO SCH (16:20)
[2021-04-16] MEDS: Melatonin 3 MG TAB PO PRN (20:36)
[2021-04-17 05:18] LABS: Albumin 2.4 g/dL (3.4-4.8); Anion Gap 13 mmol/L (10-20); BUN (Urea Nitrogen) 34 mg/dL (9.8-20.1); BUN/Creatinine Ratio 15.04; Calc. Creatinine Clearance 24 mL/min (70-130); Carbon Dioxide 24 mmol/L (23-31); Chloride 103 mmol/L (98-107); Glucose 92 mg/dL (80-115); Phosphorus 4.9 mg/dL (2.3-4.7); Potassium 4.3 mmol/L (3.5-5.1); Sodium 136 mmol/L (136-145)
[2021-04-17] MEDS: Furosemide 40 MG/4 ML VIAL SLOW IVP SCH ×2 (06:30→14:35)
[2021-04-17] MEDS: HYDROcodone/Acetaminophen 5/325 mg Tablet PO PRN ×4 (06:30→23:16)
[2021-04-17] MEDS: Ferrous Sulfate 325 MG TAB PO SCH ×2 (10:33→17:06)
[2021-04-17] MEDS: Cholecalciferol (Vitamin D3) 400 UNITS TAB PO SCH (10:34)
[2021-04-17] MEDS: Sevelamer Carbonate 800 MG TAB PO SCH ×3 (10:34→17:06)
[2021-04-17] MEDS: Metolazone 2.5 MG TAB PO SCH (10:34)
[2021-04-17] MEDS: Escitalopram Oxalate 10 mg Tablet PO SCH (10:35)
[2021-04-17] MEDS: Sodium Bicarbonate Tab 325 MG TAB PO SCH ×2 (10:36→20:12)
[2021-04-17] MEDS: hydrALAZINE 25 MG TAB PO SCH ×3 (10:36→20:12)
[2021-04-17] MEDS: Polyethylene Glycol 3350 17 GM Packet PO SCH ×2 (10:36→20:12)
[2021-04-17] MEDS: Ergocalciferol 1.25 MG(50,000 UNITS) CAP PO SCH (10:36)
[2021-04-17] MEDS: Enoxaparin Sodium 30 MG/0.3 ML SYRINGE SC SCH (14:34)
[2021-04-17] MEDS: Melatonin 3 MG TAB PO PRN (23:16)
[2021-04-18] MEDS: Furosemide 40 MG/4 ML VIAL SLOW IVP SCH ×2 (05:15→14:23)
[2021-04-18] MEDS: HYDROcodone/Acetaminophen 5/325 mg Tablet PO PRN ×4 (05:15→21:40)
[2021-04-18 06:33] LABS: Albumin 2.5 g/dL (3.4-4.8); Anion Gap 9 mmol/L (10-20); BUN (Urea Nitrogen) 34 mg/dL (9.8-20.1); BUN/Creatinine Ratio 14.59; Calc. Creatinine Clearance 23 mL/min (70-130); Calcium 8.4 mg/dL (7.8-10.44); Carbon Dioxide 30 mmol/L (23-31); Chloride 101 mmol/L (98-107); Glucose 81 mg/dL (80-115); Phosphorus 4.7 mg/dL (2.3-4.7); Sodium 136 mmol/L (136-145)
[2021-04-18] MEDS: Escitalopram Oxalate 10 mg Tablet PO SCH (09:06)
[2021-04-18] MEDS: hydrALAZINE 25 MG TAB PO SCH ×3 (09:06→21:39)
[2021-04-18] MEDS: Metolazone 2.5 MG TAB PO SCH (09:06)
[2021-04-18] MEDS: Sodium Bicarbonate Tab 325 MG TAB PO SCH ×2 (09:06→21:38)
[2021-04-18] MEDS: Ferrous Sulfate 325 MG TAB PO SCH ×2 (09:07→16:34)
[2021-04-18] MEDS: Ergocalciferol 1.25 MG(50,000 UNITS) CAP PO SCH (09:07)
[2021-04-18] MEDS: Sevelamer Carbonate 800 MG TAB PO SCH ×3 (09:07→16:34)
[2021-04-18] MEDS: Cholecalciferol (Vitamin D3) 400 UNITS TAB PO SCH (09:07)
[2021-04-18] MEDS: Polyethylene Glycol 3350 17 GM Packet PO SCH ×2 (09:08→21:41)
[2021-04-18] MEDS: Enoxaparin Sodium 30 MG/0.3 ML SYRINGE SC SCH ×2 (09:24→09:48)
[2021-04-18 10:13] LABS: #Basophils 0.1 thou/uL (0.0-0.2); #Eosinphils 0.4 thou/uL (0.0-0.7); #Lymphocytes 2.2 thou/uL (1.20-3.40); #Monocytes 0.8 thou/uL (0.11-0.59); #Neutrophils 6.7 thou/uL (1.40-6.50); %Basophils 0.8 % (0.0-1.0); %Eosinophils 3.5 % (0.0-10.0); %Lymphocytes 21.5 % (21.0-51.0); %Monocytes 7.6 % (0.0-10.0); %Neutrophils 66.7 % (42.0-75.0); Hemoglobin 9.7 g/dL (12.0-16.0); Mean Corpuscular HGB CONC 31.9 g/dL (32.0-36.0); Mean Corpuscular Volume 94.1 fL (78.0-98.0); Mean Platelet Volume 6.6 fL (7.4-10.4); Platelet Count 336 thou/uL (130-400); RBC Distribution Width 14.2 % (11.5-14.5); Red Blood Cell (RBC) Count 3.22 mill/uL (4.20-5.40)
[2021-04-18 10:35] LABS: Anion Gap 11 mmol/L (10-20); BUN (Urea Nitrogen) 35 mg/dL (9.8-20.1); Calc. Creatinine Clearance 23 mL/min (70-130); Calcium 8.4 mg/dL (7.8-10.44); Carbon Dioxide 28 mmol/L (23-31); Chloride 99 mmol/L (98-107); Glucose 107 mg/dL (80-115); Potassium 4.1 mmol/L (3.5-5.1); Sodium 134 mmol/L (136-145)
[2021-04-18] MEDS ORDERED: Lidocaine 2% Viscous Solution 20 ML, Aluminum & Magnesium Hydroxide 30 ML, Donnatal Eli... SSW SCH (11:30)
[2021-04-18 12:32] VITALS: BMI 22.6
[2021-04-18] MEDS: Pantoprazole 40 MG VIAL IVP SCH (12:32)
[2021-04-18] MEDS: Melatonin 3 MG TAB PO PRN (21:41)
[2021-04-19] MEDS: HYDROcodone/Acetaminophen 5/325 mg Tablet PO PRN ×4 (02:57→18:21)
[2021-04-19 05:05] LABS: Albumin 2.5 g/dL (3.4-4.8); Anion Gap 11 mmol/L (10-20); BUN (Urea Nitrogen) 42 mg/dL (9.8-20.1); BUN/Creatinine Ratio 17.21; Calc. Creatinine Clearance 22 mL/min (70-130); Calcium 8.1 mg/dL (7.8-10.44); Carbon Dioxide 26 mmol/L (23-31); Chloride 100 mmol/L (98-107); Glucose 156 mg/dL (80-115); Phosphorus 4.2 mg/dL (2.3-4.7); Potassium 4.2 mmol/L (3.5-5.1); Sodium 133 mmol/L (136-145)
[2021-04-19] MEDS: Furosemide 40 MG/4 ML VIAL SLOW IVP SCH (05:52)
[2021-04-19] MEDS: Ergocalciferol 1.25 MG(50,000 UNITS) CAP PO SCH (07:57)
[2021-04-19] MEDS: Sodium Bicarbonate Tab 325 MG TAB PO SCH (07:57)
[2021-04-19] MEDS: Sevelamer Carbonate 800 MG TAB PO SCH ×3 (07:58→16:27)
[2021-04-19] MEDS: Ferrous Sulfate 325 MG TAB PO SCH ×2 (07:58→16:27)
[2021-04-19] MEDS: Escitalopram Oxalate 10 mg Tablet PO SCH (07:58)
[2021-04-19] MEDS: Cholecalciferol (Vitamin D3) 400 UNITS TAB PO SCH (07:58)
[2021-04-19] MEDS: Metolazone 2.5 MG TAB PO SCH (07:59)
[2021-04-19] MEDS: Enoxaparin Sodium 30 MG/0.3 ML SYRINGE SC SCH (07:59)
[2021-04-19] MEDS: hydrALAZINE 25 MG TAB PO SCH ×2 (08:00→16:26)
[2021-04-19] MEDS: Polyethylene Glycol 3350 17 GM Packet PO SCH (08:00)
[2021-04-19] MEDS ORDERED: Torsemide 20 MG TAB PO SCH (10:00)
[2021-04-19] MEDS: Pantoprazole 40 MG VIAL IVP SCH (11:19)
[2021-04-19 11:32] VITALS: TEMP 98.9
[2021-04-19] MEDS: Hyoscyamine Sulfate SL 0.125 mg Tablet SL PRN ×2 (12:35→18:21)
[2021-04-19 16:26] VITALS: BP 139/66
[2021-04-20] MEDS ORDERED: Torsemide 20 MG TAB PO SCH (09:00)
== END 2021-04-19 19:15 | DRG 291 ==
LOC: ERS 21:10 → ERHOLD 04-13 01:37 → OBSVTOIN 04-13 05:56 → 2NO 04-13 18:18
PROVIDERS: ADMIT Internal Medicine; ATTEND Internal Medicine
DX: I13.0 Hypertensive heart and chronic kidney disease with heart failure and stage 1 through stage 4 chronic kidney disease, or unspecified chronic kidney disease (principal); I50.33 Acute on chronic diastolic (congestive) heart failure; E43 Unspecified severe protein-calorie malnutrition; T83.511A Infection and inflammatory reaction due to indwelling urethral catheter, initial encounter; G82.20 Paraplegia, unspecified; N39.0 Urinary tract infection, site not specified; N18.4 Chronic kidney disease, stage 4 (severe); E87.2 Acidosis; N17.9 Acute kidney failure, unspecified; J98.11 Atelectasis; E87.5 Hyperkalemia; E11.22 Type 2 diabetes mellitus with diabetic chronic kidney disease; M25.512 Pain in left shoulder; F32.9 Major depressive disorder, single episode, unspecified; F41.9 Anxiety disorder, unspecified; N31.9 Neuromuscular dysfunction of bladder, unspecified; M54.9 Dorsalgia, unspecified; G89.29 Other chronic pain; E11.649 Type 2 diabetes mellitus with hypoglycemia without coma; F39 Unspecified mood [affective] disorder; D63.1 Anemia in chronic kidney disease; E83.39 Other disorders of phosphorus metabolism; L89.90 Pressure ulcer of unspecified site, unspecified stage; E11.21 Type 2 diabetes mellitus with diabetic nephropathy; K58.1 Irritable bowel syndrome with constipation; R53.81 Other malaise; R33.9 Retention of urine, unspecified; Y83.8 Other surgical procedures as the cause of abnormal reaction of the patient, or of later complication, without mention of misadventure at the time of the procedure; Z79.4 Long term (current) use of insulin; Z79.899 Other long term (current) drug therapy; Z86.16 Personal history of COVID-19; Z90.49 Acquired absence of other specified parts of digestive tract; Z90.710 Acquired absence of both cervix and uterus; Z88.2 Allergy status to sulfonamides; Z68.22 Body mass index [BMI] 22.0-22.9, adult
CPT/HCPCS: 36415; 36416; 71045; 74176; 80048; 80053; 80069; 81003; 81015; 82550; 82728; 83540; 83550; 83690; 83735; 83880; 84484; 85014; 85018; 85025; 93005; 93970; 96374; 96375; 96376; C9113; G0378; J0696; J1650; J1815; J1940; J2270; J2405; J3490; Q5105

== ENCOUNTER 2022-10-09 13:20 | Inpatient (IN) | payer OTHER ==
[2022-10-09] MEDS ORDERED: Morphine 4 MG/ML VIAL ONE (14:07)
[2022-10-09 15:31] LABS: #Eosinphils 0.2 thou/uL (0.0-0.7); #Lymphocytes 1.2 thou/uL (1.20-3.40); #Monocytes 0.7 thou/uL (0.11-0.59); #Neutrophils 14.2 thou/uL (1.40-6.50); %Basophils 0.1 % (0.0-1.0); %Eosinophils 0.9 % (0.0-10.0); %Lymphocytes 7.4 % (21.0-51.0); %Monocytes 4.2 % (0.0-10.0); %Neutrophils 87.3 % (42.0-75.0); Hemoglobin 15.4 g/dL (12.0-16.0); Mean Corpuscular HGB CONC 32.1 g/dL (32.0-36.0); Mean Corpuscular Hemoglobin 29.8 pg (27.0-31.0); Mean Corpuscular Volume 92.9 fl (78.0-98.0); Mean Platelet Volume 6.6 fL (7.4-10.4); Platelet Count 314 10x3/uL (130-400); RBC Distribution Width 13.7 % (11.5-14.5); Red Blood Cell (RBC) Count 5.16 mill/uL (4.20-5.40); White Blood Cell (WBC) Count 16.3 10x3/uL (4.8-10.8)
[2022-10-09 15:50] LABS: ALT (SGPT) 10 U/L (8-55); AST (SGOT) 14 U/L (5-34); Albumin 3.6 g/dL (3.4-4.8); Alkaline Phosphatase 90 U/L (40-110); Anion Gap 13 mmol/L (10-20); BUN (Urea Nitrogen) 42 mg/dL (9.8-20.1); Bilirubin, Total 0.7 mg/dL (0.2-1.2); Calc. Creatinine Clearance 0 mL/min (70-130); Calcium 8.9 mg/dL (7.8-10.44); Carbon Dioxide 17 mmol/L (23-31); Chloride 108 mmol/L (98-107); Estimated GFR 18; Globulin 2.6 g/dL (2.4-3.5); Glucose 138 mg/dL (80-115); Potassium 5.3 mmol/L (3.5-5.1); Protein, Total 6.2 g/dL (5.8-8.1); Sodium 133 mmol/L (136-145)
[2022-10-09 16:33] LABS: Magnesium 2.6 mg/dL (1.6-2.6); Phosphorus 4.3 mg/dL (2.3-4.7)
[2022-10-09] MEDS ORDERED: HYDROmorphone 0.5 MG/0.5 ML SYRINGE ONE (16:37)
[2022-10-09] MEDS ORDERED: Dextrose 50% Abboject 50 ML SYRINGE SLOW IVP PRN (16:42)
[2022-10-09] MEDS ORDERED: Insulin Regular 300 UNITS/3 ML VIAL SC PRN (16:42)
[2022-10-09] MEDS ORDERED: hydrALAZINE 20 MG/ML VIAL SLOW IVP PRN (16:42)
[2022-10-09] MEDS ORDERED: Ondansetron PF 4 MG/2 ML Vial IVP PRN (16:42)
[2022-10-09] MEDS ORDERED: Dextrose 5% in Water 1,000 ML IV PRN (16:42)
[2022-10-09] MEDS ORDERED: CEFAZOLIN 2 GM in Sodium Chloride 0.9% 100 ML IVPB SCH (16:45)
[2022-10-09] MEDS ORDERED: Sodium Chloride 0.9% 1,000 ML IV SCH ×3 (16:45→23:45)
[2022-10-09] MEDS ORDERED: Cyclobenzaprine 10 MG TAB PO PRN (16:46)
[2022-10-09] MEDS ORDERED: traMADol HCl 50 MG TAB PO SCH (18:00)
[2022-10-09] MEDS: Morphine 4 MG/ML VIAL SLOW IVP PRN ×2 (18:51→21:19)
[2022-10-09] MEDS: Acetaminophen 500 MG TAB PO SCH (18:52)
[2022-10-09] MEDS: Famotidine 20 MG TAB PO SCH (20:28)
[2022-10-09] MEDS: Senokot S 8.6-50 MG TAB PO SCH (20:28)
[2022-10-09] MEDS: traMADol HCl 50 MG TAB PO SCH (20:28)
[2022-10-09] MEDS: Gabapentin 100 MG CAP PO SCH (20:28)
[2022-10-09 22:49] LABS: SARS-CoV-2 NAA Rapid Test Not Detected (NotDetected)
[2022-10-09 23:06] VITALS: BMI 25.6
[2022-10-09] MEDS ORDERED: diphenhydrAMINE 25 MG CAP PO SCH (23:45)
[2022-10-10] MEDS: traMADol HCl 50 MG TAB PO PRN (00:01)
[2022-10-10] MEDS: Acetaminophen 500 MG TAB PO SCH ×4 (00:02→18:45)
[2022-10-10 06:15] LABS: #Basophils 0.1 thou/uL (0.0-0.2); #Eosinphils 0.4 thou/uL (0.0-0.7); #Lymphocytes 1.2 thou/uL (1.20-3.40); #Monocytes 0.9 thou/uL (0.11-0.59); #Neutrophils 11.3 thou/uL (1.40-6.50); %Basophils 0.6 % (0.0-1.0); %Eosinophils 2.7 % (0.0-10.0); %Lymphocytes 8.9 % (21.0-51.0); %Monocytes 6.4 % (0.0-10.0); %Neutrophils 81.4 % (42.0-75.0); Hemoglobin 11.9 g/dL (12.0-16.0); Mean Corpuscular HGB CONC 31.9 g/dL (32.0-36.0); Mean Corpuscular Hemoglobin 30.4 pg (27.0-31.0); Mean Corpuscular Volume 95.1 fl (78.0-98.0); Platelet Count 243 10x3/uL (130-400); RBC Distribution Width 13.6 % (11.5-14.5); Red Blood Cell (RBC) Count 3.93 mill/uL (4.20-5.40); White Blood Cell (WBC) Count 13.9 10x3/uL (4.8-10.8)
[2022-10-10 06:26] LABS: Anion Gap 13 mmol/L (10-20); BUN (Urea Nitrogen) 48 mg/dL (9.8-20.1); Calc. Creatinine Clearance 20 mL/min (70-130); Calcium 8.1 mg/dL (7.8-10.44); Carbon Dioxide 14 mmol/L (23-31); Chloride 111 mmol/L (98-107); Estimated GFR 17; Glucose 145 mg/dL (80-115); Magnesium 2.6 mg/dL (1.6-2.6); Phosphorus 4.9 mg/dL (2.3-4.7); Potassium 5.2 mmol/L (3.5-5.1); Sodium 133 mmol/L (136-145)
[2022-10-10] MEDS ORDERED: Simethicone Chewable 80 MG TAB PO PRN (07:49)
[2022-10-10] MEDS ORDERED: Melatonin 3 MG TAB PO PRN (07:49)
[2022-10-10] MEDS: Morphine 4 MG/ML VIAL SLOW IVP PRN ×2 (08:11→10:14)
[2022-10-10] MEDS: Sevelamer Carbonate 800 MG TAB PO SCH ×3 (08:20→18:44)
[2022-10-10] MEDS: Escitalopram Oxalate 10 mg Tablet PO SCH (08:20)
[2022-10-10] MEDS: hydrALAZINE 25 MG TAB PO SCH ×3 (08:22→20:22)
[2022-10-10] MEDS: Sodium Bicarbonate 100 MEQ in Dextrose 5% in Water 1,000 ML IV SCH ×2 (09:57→23:34)
[2022-10-10] MEDS: Polyethylene Glycol 3350 17 GM Packet PO SCH (09:58)
[2022-10-10] MEDS: Senokot S 8.6-50 MG TAB PO SCH ×2 (09:59→20:22)
[2022-10-10] MEDS: Gabapentin 100 MG CAP PO SCH ×3 (10:05→20:24)
[2022-10-10] MEDS: traMADol HCl 50 MG TAB PO SCH ×2 (10:10→20:24)
[2022-10-10] MEDS ORDERED: Bupivacaine PF 0.5% 30 ML VIAL ONE (10:54)
[2022-10-10] MEDS ORDERED: Fentanyl 250 MCG/5 ML VIAL ONE (11:56)
[2022-10-10] MEDS ORDERED: Sodium Chloride 0.9% 100 ML ONE (12:13)
[2022-10-10] MEDS ORDERED: CEFAZOLIN 2 GM VIAL ONE (12:13)
[2022-10-10] MEDS ORDERED: Fentanyl 100 MCG/2 ML VIAL ONE ×2 (12:26→15:11)
[2022-10-10] MEDS ORDERED: Acetaminophen 500 MG TAB ONE (12:27)
[2022-10-10] MEDS ORDERED: Famotidine/PF 20 mg/2ml Vial ONE (12:57)
[2022-10-10] MEDS ORDERED: PHENYLEPHRINE-NS 100 MCG/ML 10 ML SYRINGE ONE ×2 (13:02→14:15)
[2022-10-10] MEDS ORDERED: PROPOFOL 200 MG/20 ML VIAL ONE (13:02)
[2022-10-10] MEDS ORDERED: Lidocaine 1% PF 5 ML VIAL ONE (13:02)
[2022-10-10] MEDS ORDERED: Ondansetron PF 4 MG/2 ML Vial ONE (13:02)
[2022-10-10] MEDS ORDERED: Dexamethasone 20 MG/5 ML VIAL ONE (13:02)
[2022-10-10] MEDS ORDERED: Metoclopramide HCl 10 MG/2 ML VIAL ONE (13:02)
[2022-10-10] MEDS ORDERED: ePHEDrine 50 MG/ML VIAL ONE (13:02)
[2022-10-10 14:36] LABS: Bacteria/HPF 4+ HPF (None Seen); Bilirubin Negative (Negative); Blood, Urine Negative (Negative); Clarity Turbid (Clear); Glucose, Urine (Dipstick) Normal (Negative); Ketone, Urine Trace mg/dL (Negative); Leukocyte 500 Leu/uL (Negative); Nitrite Negative (Negative); Protein, Urine (Dipstick) 300 mg/dL (Neg-Trace); RBC/HPF 0-3 HPF (0-3); Squamous Epithelial 0-3 HPF (0-3); Urobilinogen Normal mg/dL (Less than 2); WBC/HPF Greater than 50 HPF (0-3); pH, Urine 7.5 (5.0-9.0)
[2022-10-10] MEDS ORDERED: Ondansetron HCl/PF 4 MG/2 ML Vial IVP PRN (14:47)
[2022-10-10] MEDS ORDERED: Phenylephrine 10 MG/ML VIAL ONE (16:07)
[2022-10-10] MEDS ORDERED: Calcium Chloride 1 GM/10 ML Abboject SYRINGE ONE (16:07)
[2022-10-10] MEDS ORDERED: Midazolam HCl 2 mg/2 ml Vial ONE (16:22)
[2022-10-10 17:59] LABS: Mean Corpuscular HGB CONC 30.2 g/dL (32.0-36.0); Mean Corpuscular Hemoglobin 29.9 pg (27.0-31.0); Mean Corpuscular Volume 98.9 fl (78.0-98.0); Mean Platelet Volume 7.1 fL (7.4-10.4); Platelet Count 199 10x3/uL (130-400); RBC Distribution Width 13.7 % (11.5-14.5); Red Blood Cell (RBC) Count 3.69 mill/uL (4.20-5.40); White Blood Cell (WBC) Count 26.2 10x3/uL (4.8-10.8)
[2022-10-10 18:09] LABS: Lactic Acid 2.1 mmol/L (0.5-2.2)
[2022-10-10 18:14] LABS: Anion Gap 14 mmol/L (10-20); BUN (Urea Nitrogen) 50 mg/dL (9.8-20.1); Calc. Creatinine Clearance 19 mL/min (70-130); Calcium 8.3 mg/dL (7.8-10.44); Carbon Dioxide 12 mmol/L (23-31); Chloride 111 mmol/L (98-107); Estimated GFR 17; Glucose 187 mg/dL (80-115); Magnesium 2.5 mg/dL (1.6-2.6); Phosphorus 5.3 mg/dL (2.3-4.7); Potassium 5.1 mmol/L (3.5-5.1); Sodium 132 mmol/L (136-145)
[2022-10-10 18:20] LABS: Band 27 % (5-11); Lymphocytes 4 % (21-51); MDiff Complete? YES; Monocytes 2 % (0-10); Neutrophil 67 % (42-75); Platelet Morphology Comment Appears Adequate; RBC Morphology Normal
[2022-10-10] MEDS ORDERED: Sodium Chloride 0.9% 1,000 ML IV SCH (20:00)
[2022-10-10] MEDS: Famotidine 20 MG TAB PO SCH (20:25)
[2022-10-11] MEDS: Acetaminophen 500 MG TAB PO SCH ×5 (00:14→23:57)
[2022-10-11] MEDS: Sodium Bicarbonate 100 MEQ in Dextrose 5% in Water 1,000 ML IV SCH ×3 (02:52→17:37)
[2022-10-11] MEDS: Morphine 4 MG/ML VIAL SLOW IVP PRN (04:44)
[2022-10-11] MEDS: Insulin Regular 300 UNITS/3 ML VIAL SC PRN ×2 (05:50→12:06)
[2022-10-11 06:04] LABS: Hemoglobin 9.8 g/dL (12.0-16.0); Mean Corpuscular HGB CONC 30.7 g/dL (32.0-36.0); Mean Corpuscular Hemoglobin 29.6 pg (27.0-31.0); Mean Corpuscular Volume 96.3 fl (78.0-98.0); Mean Platelet Volume 7.5 fL (7.4-10.4); Platelet Count 165 10x3/uL (130-400); RBC Distribution Width 13.5 % (11.5-14.5); White Blood Cell (WBC) Count 16.2 10x3/uL (4.8-10.8)
[2022-10-11 06:17] LABS: Anion Gap 13 mmol/L (10-20); BUN (Urea Nitrogen) 48 mg/dL (9.8-20.1); Calc. Creatinine Clearance 20 mL/min (70-130); Carbon Dioxide 16 mmol/L (23-31); Chloride 105 mmol/L (98-107); Estimated GFR 18; Glucose 306 mg/dL (80-115); Magnesium 2.4 mg/dL (1.6-2.6); Phosphorus 5.2 mg/dL (2.3-4.7); Potassium 5.3 mmol/L (3.5-5.1); Sodium 129 mmol/L (136-145)
[2022-10-11 07:24] LABS: Band 19 % (5-11); Burr Cells SLIGHT = 2-5 cells (100X) (0-1/hpf); Hypochromia SLIGHT = 6-15 cells (100X) (0-5/hpf); Lymphocytes 5 % (21-51); MDiff Complete? YES; Monocytes 3 % (0-10); Neutrophil 71 % (42-75); Ovalocytes SLIGHT = 2-5 cells (100X) (0-1/hpf); Platelet Morphology Comment Appears Adequate; Polychromasia SLIGHT = 2-3 cells (100X) (0-2/hpf); Reactive Lymphocytes 2 % (0-10); Tear Drops SLIGHT = 2-5 cells (100X) (0-1/hpf)
[2022-10-11] MEDS: Senokot S 8.6-50 MG TAB PO SCH ×2 (08:32→20:42)
[2022-10-11] MEDS: Escitalopram Oxalate 10 mg Tablet PO SCH (08:33)
[2022-10-11] MEDS: hydrALAZINE 25 MG TAB PO SCH ×3 (08:33→20:42)
[2022-10-11] MEDS: Ferrous Sulfate 325 MG TAB PO SCH ×2 (08:34→17:36)
[2022-10-11] MEDS: traMADol HCl 50 MG TAB PO SCH ×2 (08:35→20:43)
[2022-10-11] MEDS: Sevelamer Carbonate 800 MG TAB PO SCH ×3 (08:38→17:37)
[2022-10-11] MEDS: Polyethylene Glycol 3350 17 GM Packet PO SCH (08:41)
[2022-10-11] MEDS: Gabapentin 100 MG CAP PO SCH ×3 (08:41→20:42)
[2022-10-11] MEDS: Insulin Glargine 30 UNITS/0.3 ML VIAL SC SCH (08:43)
[2022-10-11] MEDS ORDERED: diphenhydrAMINE 50 MG CAP PO PRN (08:53)
[2022-10-11] MEDS: Heparin 5,000 UNITS/ML VIAL SC SCH ×3 (10:19→20:43)
[2022-10-11] MEDS: traMADol HCl 50 MG TAB PO PRN (16:19)
[2022-10-11] MEDS: Famotidine 20 MG TAB PO SCH (20:43)
[2022-10-12] MEDS: Sodium Bicarbonate 100 MEQ in Dextrose 5% in Water 1,000 ML IV SCH ×3 (04:54→21:00)
[2022-10-12] MEDS: Acetaminophen 500 MG TAB PO SCH ×3 (05:51→17:36)
[2022-10-12] MEDS: Gabapentin 100 MG CAP PO SCH ×3 (08:29→21:09)
[2022-10-12] MEDS: Ferrous Sulfate 325 MG TAB PO SCH ×2 (08:30→16:10)
[2022-10-12] MEDS: hydrALAZINE 25 MG TAB PO SCH ×3 (08:31→21:08)
[2022-10-12] MEDS: Senokot S 8.6-50 MG TAB PO SCH ×2 (08:31→21:10)
[2022-10-12] MEDS: Sevelamer Carbonate 800 MG TAB PO SCH ×3 (08:32→16:08)
[2022-10-12] MEDS: traMADol HCl 50 MG TAB PO SCH ×2 (08:32→21:10)
[2022-10-12] MEDS: Escitalopram Oxalate 10 mg Tablet PO SCH (08:32)
[2022-10-12] MEDS: Insulin Glargine 30 UNITS/0.3 ML VIAL SC SCH (08:33)
[2022-10-12] MEDS: Heparin 5,000 UNITS/ML VIAL SC SCH ×3 (08:33→21:07)
[2022-10-12] MEDS: Polyethylene Glycol 3350 17 GM Packet PO SCH (08:34)
[2022-10-12 08:44] LABS: #Eosinphils 0.6 thou/uL (0.0-0.7); #Lymphocytes 1.2 thou/uL (1.20-3.40); #Monocytes 0.8 thou/uL (0.11-0.59); #Neutrophils 11.2 thou/uL (1.40-6.50); %Basophils 0.1 % (0.0-1.0); %Eosinophils 4.4 % (0.0-10.0); %Lymphocytes 8.8 % (21.0-51.0); %Monocytes 5.7 % (0.0-10.0); %Neutrophils 80.9 % (42.0-75.0); Hemoglobin 8.5 g/dL (12.0-16.0); Mean Corpuscular HGB CONC 31.9 g/dL (32.0-36.0); Mean Corpuscular Hemoglobin 30.5 pg (27.0-31.0); Mean Corpuscular Volume 95.5 fl (78.0-98.0); Mean Platelet Volume 7.8 fL (7.4-10.4); Platelet Count 159 10x3/uL (130-400); RBC Distribution Width 13.4 % (11.5-14.5); Red Blood Cell (RBC) Count 2.79 mill/uL (4.20-5.40); White Blood Cell (WBC) Count 13.9 10x3/uL (4.8-10.8)
[2022-10-12 09:04] LABS: Anion Gap 15 mmol/L (10-20); BUN (Urea Nitrogen) 49 mg/dL (9.8-20.1); Calc. Creatinine Clearance 21 mL/min (70-130); Calcium 7.9 mg/dL (7.8-10.44); Carbon Dioxide 21 mmol/L (23-31); Chloride 101 mmol/L (98-107); Estimated GFR 19; Glucose 85 mg/dL (80-115); Magnesium 2.3 mg/dL (1.6-2.6); Phosphorus 4.3 mg/dL (2.3-4.7); Potassium 4.9 mmol/L (3.5-5.1); Sodium 132 mmol/L (136-145)
[2022-10-12] MEDS: traMADol HCl 50 MG TAB PO PRN (16:08)
[2022-10-12] MEDS: Famotidine 20 MG TAB PO SCH (21:08)
[2022-10-13] MEDS: Acetaminophen 500 MG TAB PO SCH ×3 (00:14→13:02)
[2022-10-13 06:45] LABS: Anion Gap 13 mmol/L (10-20); BUN (Urea Nitrogen) 44 mg/dL (9.8-20.1); Calc. Creatinine Clearance 23 mL/min (70-130); Calcium 7.4 mg/dL (7.8-10.44); Carbon Dioxide 24 mmol/L (23-31); Chloride 99 mmol/L (98-107); Estimated GFR 21; Glucose 71 mg/dL (80-115); Magnesium 2.3 mg/dL (1.6-2.6); Phosphorus 3.9 mg/dL (2.3-4.7); Potassium 4.5 mmol/L (3.5-5.1); Sodium 131 mmol/L (136-145)
[2022-10-13 06:47] LABS: #Basophils 0.1 thou/uL (0.0-0.2); #Monocytes 0.9 thou/uL (0.11-0.59); #Neutrophils 9.3 thou/uL (1.40-6.50); %Basophils 0.6 % (0.0-1.0); %Eosinophils 7.4 % (0.0-10.0); %Lymphocytes 14.8 % (21.0-51.0); %Monocytes 6.7 % (0.0-10.0); %Neutrophils 70.6 % (42.0-75.0); Hemoglobin 8.5 g/dL (12.0-16.0); Mean Corpuscular HGB CONC 31.9 g/dL (32.0-36.0); Mean Corpuscular Hemoglobin 29.8 pg (27.0-31.0); Mean Corpuscular Volume 93.4 fl (78.0-98.0); Mean Platelet Volume 8.4 fL (7.4-10.4); Platelet Count 139 10x3/uL (130-400); RBC Distribution Width 13.3 % (11.5-14.5); Red Blood Cell (RBC) Count 2.85 mill/uL (4.20-5.40); White Blood Cell (WBC) Count 13.1 10x3/uL (4.8-10.8)
[2022-10-13] MEDS: traMADol HCl 50 MG TAB PO SCH (09:24)
[2022-10-13] MEDS: hydrALAZINE 25 MG TAB PO SCH ×2 (09:25→16:32)
[2022-10-13] MEDS: Ferrous Sulfate 325 MG TAB PO SCH (09:26)
[2022-10-13] MEDS: Escitalopram Oxalate 10 mg Tablet PO SCH (09:26)
[2022-10-13] MEDS: Gabapentin 100 MG CAP PO SCH ×2 (09:26→16:31)
[2022-10-13] MEDS: Sevelamer Carbonate 800 MG TAB PO SCH ×2 (09:27→12:50)
[2022-10-13] MEDS: Insulin Glargine 30 UNITS/0.3 ML VIAL SC SCH (09:28)
[2022-10-13] MEDS: Heparin 5,000 UNITS/ML VIAL SC SCH ×2 (09:30→16:32)
[2022-10-13] MEDS: Senokot S 8.6-50 MG TAB PO SCH (10:15)
[2022-10-13] MEDS: Polyethylene Glycol 3350 17 GM Packet PO SCH (10:15)
[2022-10-13 12:36] VITALS: BP 136/76; TEMP 97.9
== END 2022-10-13 13:15 | DRG 481 ==
LOC: ERS 13:20 → SJJU 15:05
PROVIDERS: ADMIT Surgery; ATTEND Surgery
PROC: 0QH936Z Insertion of Intramedullary Internal Fixation Device into Left Femoral Shaft, Percutaneous Approach (ICD-10-PCS; principal; 2022-10-10)
DX: S72.302A Unspecified fracture of shaft of left femur, initial encounter for closed fracture (principal); E87.20 Acidosis, unspecified; N17.9 Acute kidney failure, unspecified; W05.0XXA Fall from non-moving wheelchair, initial encounter; Z20.822 Contact with and (suspected) exposure to COVID-19; E11.9 Type 2 diabetes mellitus without complications; I10 Essential (primary) hypertension; K58.9 Irritable bowel syndrome, unspecified; F41.9 Anxiety disorder, unspecified; F32.A Depression, unspecified; E87.5 Hyperkalemia; I12.9 Hypertensive chronic kidney disease with stage 1 through stage 4 chronic kidney disease, or unspecified chronic kidney disease; N31.9 Neuromuscular dysfunction of bladder, unspecified; M81.0 Age-related osteoporosis without current pathological fracture; Z98.1 Arthrodesis status; Z90.49 Acquired absence of other specified parts of digestive tract; Z90.710 Acquired absence of both cervix and uterus; Z88.1 Allergy status to other antibiotic agents; Z88.2 Allergy status to sulfonamides; Z79.899 Other long term (current) drug therapy; Z79.4 Long term (current) use of insulin
CPT/HCPCS: 36415; 36416; 71045; 72170; 80048; 80053; 81001; 83605; 83735; 84100; 85025; 87086; 96372; 96374; 97139; C1713; G0390; J1100; J1170; J1644; J1815; J2250; J2270; J2370; J2405; J2704; J2765; J3010; J3490; J7050; J7070; S0020; S0028; U0002

== ENCOUNTER 2022-10-18 19:04 | Inpatient (IN) | payer OTHER ==
[2022-10-18] MEDS ORDERED: Fentanyl 100 MCG/2 ML VIAL ONE ×2 (20:16→22:55)
[2022-10-18 21:09] LABS: #Basophils 0.1 thou/uL (0.0-0.2); #Eosinphils 0.3 thou/uL (0.0-0.7); #Lymphocytes 1.5 thou/uL (1.20-3.40); #Monocytes 0.9 thou/uL (0.11-0.59); #Neutrophils 11.5 thou/uL (1.40-6.50); %Basophils 0.5 % (0.0-1.0); %Eosinophils 1.8 % (0.0-10.0); %Lymphocytes 10.3 % (21.0-51.0); %Monocytes 6.2 % (0.0-10.0); %Neutrophils 81.2 % (42.0-75.0); Hemoglobin 8.3 g/dL (12.0-16.0); Mean Corpuscular Hemoglobin 30.3 pg (27.0-31.0); Mean Corpuscular Volume 94.7 fl (78.0-98.0); Mean Platelet Volume 6.6 fL (7.4-10.4); Platelet Count 404 10x3/uL (130-400); RBC Distribution Width 13.6 % (11.5-14.5); Red Blood Cell (RBC) Count 2.75 mill/uL (4.20-5.40); White Blood Cell (WBC) Count 14.1 10x3/uL (4.8-10.8)
[2022-10-18 21:33] LABS: BUN (Urea Nitrogen) 35 mg/dL (9.8-20.1); Calc. Creatinine Clearance 0 mL/min (70-130); Carbon Dioxide 18 mmol/L (23-31); Chloride 109 mmol/L (98-107); Potassium 4.5 mmol/L (3.5-5.1); Sodium 133 mmol/L (136-145)
[2022-10-18 21:34] LABS: ALT (SGPT) Less than 7 U/L (8-55); AST (SGOT) 14 U/L (5-34); Albumin 2.6 g/dL (3.4-4.8); Alkaline Phosphatase 137 U/L (40-110); Bilirubin, Total 0.6 mg/dL (0.2-1.2); Calcium 8.6 mg/dL (7.8-10.44); Estimated GFR 21; Globulin 2.7 g/dL (2.4-3.5); Glucose 138 mg/dL (80-115); Protein, Total 5.3 g/dL (5.8-8.1)
[2022-10-18] MEDS ORDERED: Morphine 4 MG/ML VIAL ONE (21:38)
[2022-10-18] MEDS ORDERED: Ondansetron PF 4 MG/2 ML Vial ONE (21:38)
[2022-10-18] MEDS ORDERED: TETANUS, DIPHTHERIA TOX,ADULT (TDVAX) 0.5 ML VIAL IM ONE (23:07)
[2022-10-18] MEDS ORDERED: Ipratropium/Albuterol 3 ML NEB NEB PRN (23:07)
[2022-10-18] MEDS ORDERED: Morphine 2 MG/ML VIAL SLOW IVP PRN (23:07)
[2022-10-18] MEDS ORDERED: Ondansetron PF 4 MG/2 ML Vial IVP PRN (23:07)
[2022-10-18] MEDS ORDERED: traMADol HCl 50 MG TAB PO PRN (23:13)
[2022-10-18] MEDS ORDERED: Senokot S 8.6-50 MG TAB PO PRN (23:13)
[2022-10-18] MEDS ORDERED: Melatonin 3 MG TAB PO PRN (23:13)
[2022-10-18] MEDS ORDERED: Sodium Chloride 0.9% 1,000 ML IV SCH (23:15)
[2022-10-18] MEDS ORDERED: Dextrose 5% in Water 1,000 ML IV PRN (23:27)
[2022-10-18] MEDS ORDERED: Dextrose 50% Abboject 50 ML SYRINGE SLOW IVP PRN (23:27)
[2022-10-18] MEDS ORDERED: Insulin Regular 300 UNITS/3 ML VIAL SC PRN (23:27)
[2022-10-19 00:36] LABS: SARS-CoV-2 NAA Rapid Test Not Detected (NotDetected)
[2022-10-19 00:58] VITALS: BMI 28.5
[2022-10-19 01:06] LABS: Anion Gap 11 mmol/L (10-20)
[2022-10-19] MEDS: Acetaminophen 500 MG TAB PO SCH ×6 (01:07→23:39)
[2022-10-19] MEDS: Lactated Ringer's 1,000 ML IV SCH ×2 (01:09→12:07)
[2022-10-19] MEDS: Morphine 4 MG/ML VIAL SLOW IVP PRN ×2 (01:09→06:21)
[2022-10-19 06:05] LABS: #Eosinphils 0.3 thou/uL (0.0-0.7); #Lymphocytes 1.8 thou/uL (1.20-3.40); #Monocytes 1.1 thou/uL (0.11-0.59); #Neutrophils 11.2 thou/uL (1.40-6.50); %Basophils 0.2 % (0.0-1.0); %Eosinophils 2.2 % (0.0-10.0); %Lymphocytes 12.7 % (21.0-51.0); %Monocytes 7.6 % (0.0-10.0); %Neutrophils 77.3 % (42.0-75.0); Mean Corpuscular HGB CONC 32.4 g/dL (32.0-36.0); Mean Corpuscular Hemoglobin 30.4 pg (27.0-31.0); Mean Corpuscular Volume 93.7 fl (78.0-98.0); Mean Platelet Volume 6.8 fL (7.4-10.4); Platelet Count 350 10x3/uL (130-400); RBC Distribution Width 13.6 % (11.5-14.5); Red Blood Cell (RBC) Count 2.64 mill/uL (4.20-5.40); White Blood Cell (WBC) Count 14.5 10x3/uL (4.8-10.8)
[2022-10-19 06:16] LABS: Phosphorus 2.8 mg/dL (2.3-4.7)
[2022-10-19 06:19] LABS: Anion Gap 12 mmol/L (10-20); BUN (Urea Nitrogen) 37 mg/dL (9.8-20.1); Calc. Creatinine Clearance 25 mL/min (70-130); Calcium 8.1 mg/dL (7.8-10.44); Carbon Dioxide 18 mmol/L (23-31); Chloride 111 mmol/L (98-107); Estimated GFR 21; Glucose 122 mg/dL (80-115); Magnesium 2.3 mg/dL (1.6-2.6); Potassium 4.7 mmol/L (3.5-5.1); Sodium 136 mmol/L (136-145)
[2022-10-19] MEDS ORDERED: traMADol HCl 50 MG TAB PO SCH (09:00)
[2022-10-19] MEDS ORDERED: Gabapentin 100 MG CAP PO SCH (09:00)
[2022-10-19 09:33] LABS: INR-International Normal Ratio 0.9; Prothrombin Time 12.5 sec (12.0-14.7)
[2022-10-19] MEDS: Famotidine/PF 20 mg/2ml Vial SLOW IVP SCH (10:05)
[2022-10-19] MEDS: Ferrous Sulfate 325 MG TAB PO SCH ×2 (10:05→17:29)
[2022-10-19] MEDS: Bacitracin 1 PK TOP SCH ×3 (10:05→21:11)
[2022-10-19] MEDS: Polyethylene Glycol 3350 17 GM Packet PO SCH (10:05)
[2022-10-19] MEDS: Sevelamer Carbonate 800 MG TAB PO SCH ×3 (10:06→17:29)
[2022-10-19] MEDS: Escitalopram Oxalate 10 mg Tablet PO SCH (10:07)
[2022-10-19] MEDS: hydrALAZINE 25 MG TAB PO SCH ×3 (10:09→21:11)
[2022-10-19] MEDS: Heparin 5,000 UNITS/ML VIAL SC SCH (21:11)
[2022-10-20] MEDS: Acetaminophen 500 MG TAB PO SCH ×4 (05:39→23:13)
[2022-10-20 06:30] LABS: #Basophils 0.1 thou/uL (0.0-0.2); #Eosinphils 0.5 thou/uL (0.0-0.7); #Lymphocytes 1.4 thou/uL (1.20-3.40); #Monocytes 0.9 thou/uL (0.11-0.59); #Neutrophils 12.1 thou/uL (1.40-6.50); %Basophils 0.4 % (0.0-1.0); %Eosinophils 3.1 % (0.0-10.0); %Lymphocytes 9.5 % (21.0-51.0); %Monocytes 5.9 % (0.0-10.0); %Neutrophils 81.1 % (42.0-75.0); Hemoglobin 9.9 g/dL (12.0-16.0); Mean Corpuscular HGB CONC 32.2 g/dL (32.0-36.0); Mean Corpuscular Hemoglobin 30.4 pg (27.0-31.0); Mean Corpuscular Volume 94.6 fl (78.0-98.0); Mean Platelet Volume 6.7 fL (7.4-10.4); Platelet Count 413 10x3/uL (130-400); RBC Distribution Width 15.4 % (11.5-14.5); Red Blood Cell (RBC) Count 3.24 mill/uL (4.20-5.40)
[2022-10-20] MEDS: Ferrous Sulfate 325 MG TAB PO SCH ×2 (08:48→17:28)
[2022-10-20] MEDS: Escitalopram Oxalate 10 mg Tablet PO SCH (08:48)
[2022-10-20] MEDS: hydrALAZINE 25 MG TAB PO SCH ×3 (08:48→20:21)
[2022-10-20] MEDS: Bacitracin 1 PK TOP SCH ×3 (08:48→20:21)
[2022-10-20] MEDS: Sevelamer Carbonate 800 MG TAB PO SCH ×3 (08:49→17:28)
[2022-10-20] MEDS: Heparin 5,000 UNITS/ML VIAL SC SCH ×2 (08:49→20:21)
[2022-10-20] MEDS: Famotidine/PF 20 mg/2ml Vial SLOW IVP SCH (08:49)
[2022-10-20] MEDS: Polyethylene Glycol 3350 17 GM Packet PO SCH (09:51)
[2022-10-20 14:54] LABS: Bilirubin Negative (Negative); Blood, Urine Trace (Negative); Clarity Turbid (Clear); Glucose, Urine (Dipstick) 200 mg/dL (Negative); Ketone, Urine Negative (Negative); Leukocyte 500 Leu/uL (Negative); Nitrite Negative (Negative); Protein, Urine (Dipstick) 100 mg/dL (Neg-Trace); RBC/HPF 0-3 HPF (0-3); Squamous Epithelial 0-3 HPF (0-3); Urobilinogen Normal mg/dL (Less than 2); WBC/HPF Greater than 50 HPF (0-3)
[2022-10-20 14:55] LABS: Bacteria/HPF 1+ HPF (None Seen)
[2022-10-21] MEDS: Acetaminophen 500 MG TAB PO SCH (05:05)
[2022-10-21 05:50] LABS: #Basophils 0.1 thou/uL (0.0-0.2); #Eosinphils 0.7 thou/uL (0.0-0.7); #Lymphocytes 1.5 thou/uL (1.20-3.40); #Monocytes 0.5 thou/uL (0.11-0.59); #Neutrophils 11.6 thou/uL (1.40-6.50); %Basophils 0.6 % (0.0-1.0); %Lymphocytes 10.1 % (21.0-51.0); %Monocytes 3.7 % (0.0-10.0); %Neutrophils 80.6 % (42.0-75.0); Hemoglobin 9.9 g/dL (12.0-16.0); Mean Corpuscular HGB CONC 31.5 g/dL (32.0-36.0); Mean Corpuscular Hemoglobin 30.7 pg (27.0-31.0); Mean Corpuscular Volume 97.3 fl (78.0-98.0); Mean Platelet Volume 6.6 fL (7.4-10.4); Platelet Count 490 10x3/uL (130-400); RBC Distribution Width 15.3 % (11.5-14.5); Red Blood Cell (RBC) Count 3.22 mill/uL (4.20-5.40); White Blood Cell (WBC) Count 14.4 10x3/uL (4.8-10.8)
[2022-10-21 06:05] LABS: Anion Gap 9 mmol/L (10-20); BUN (Urea Nitrogen) 42 mg/dL (9.8-20.1); Calc. Creatinine Clearance 25 mL/min (70-130); Calcium 8.2 mg/dL (7.8-10.44); Carbon Dioxide 19 mmol/L (23-31); Chloride 111 mmol/L (98-107); Estimated GFR 20; Glucose 123 mg/dL (80-115); Magnesium 2.6 mg/dL (1.6-2.6); Phosphorus 2.5 mg/dL (2.3-4.7); Potassium 5.1 mmol/L (3.5-5.1); Sodium 134 mmol/L (136-145)
[2022-10-21] MEDS ORDERED: EPOETIN ALFA-EPBX (ESRD) 10,000 UNIT/ML VIAL SC SCH (09:00)
[2022-10-21] MEDS: Bacitracin 1 PK TOP SCH (09:55)
[2022-10-21] MEDS: Ferrous Sulfate 325 MG TAB PO SCH (09:55)
[2022-10-21] MEDS: Heparin 5,000 UNITS/ML VIAL SC SCH (09:55)
[2022-10-21] MEDS: Escitalopram Oxalate 10 mg Tablet PO SCH (09:55)
[2022-10-21] MEDS: Sevelamer Carbonate 800 MG TAB PO SCH ×2 (09:55→12:11)
[2022-10-21] MEDS: Polyethylene Glycol 3350 17 GM Packet PO SCH (09:56)
[2022-10-21] MEDS: hydrALAZINE 25 MG TAB PO SCH (09:56)
[2022-10-21] MEDS ORDERED: Acetaminophen/Codeine 30-300mg Tablet PO SCH (11:00)
[2022-10-21] MEDS ORDERED: Acetaminophen 325 MG TAB PO SCH (12:00)
[2022-10-21 12:01] VITALS: BP 146/76; TEMP 99.2
== END 2022-10-21 14:45 | DRG 563 ==
LOC: ERS 19:04 → SURG B 23:07
PROVIDERS: ADMIT Surgery; ATTEND Surgery
DX: S82.251A Displaced comminuted fracture of shaft of right tibia, initial encounter for closed fracture (principal); E46 Unspecified protein-calorie malnutrition; Z20.822 Contact with and (suspected) exposure to COVID-19; K58.9 Irritable bowel syndrome, unspecified; I12.9 Hypertensive chronic kidney disease with stage 1 through stage 4 chronic kidney disease, or unspecified chronic kidney disease; E11.22 Type 2 diabetes mellitus with diabetic chronic kidney disease; N18.9 Chronic kidney disease, unspecified; N31.9 Neuromuscular dysfunction of bladder, unspecified; F41.9 Anxiety disorder, unspecified; F32.A Depression, unspecified; S82.831A Other fracture of upper and lower end of right fibula, initial encounter for closed fracture; K56.41 Fecal impaction; W18.30XA Fall on same level, unspecified, initial encounter; Z90.710 Acquired absence of both cervix and uterus; Z87.440 Personal history of urinary (tract) infections; Z88.2 Allergy status to sulfonamides; Z88.8 Allergy status to other drugs, medicaments and biological substances; Z68.28 Body mass index [BMI] 28.0-28.9, adult
CPT/HCPCS: 36415; 36416; 36430; 71045; 72131; 72170; 72192; 80048; 80053; 81003; 81015; 83605; 83735; 84100; 85025; 85610; 85730; 86850; 86900; 86901; 87086; 96372; 96374; 96375; J1644; J2270; J2405; J3010; J7120; P9016; Q5105; S0028; U0002

== ENCOUNTER 2023-05-27 15:37 | Emergency (ER) | payer OTHER ==
[2023-05-27 17:12] LABS: Bacteria/HPF 4+ HPF (None Seen); Bilirubin Negative (Negative); Blood, Urine Negative (Negative); CAUTI Indications for Culture Pelvic or flank pain; Clarity Extra Turbid (Clear); Glucose, Urine (Dipstick) 100 mg/dL (Negative); Ketone, Urine Negative (Negative); Leukocyte 500 Leu/uL (Negative); Nitrite Negative (Negative); Protein, Urine (Dipstick) 300 mg/dL (Neg-Trace); RBC/HPF None Seen HPF (0-3); Specific Gravity, Urine 1.014 (1.002-1.036); Squamous Epithelial 0-3 HPF (0-3); Triple Phosphate Crystal 2+ HPF (None Seen); Urobilinogen Normal mg/dL (Less than 2); pH, Urine 8.5 (5.0-9.0)
[2023-05-27 17:15] LABS: Urine Culture Reflex Yes Yes
[2023-05-27] MEDS ORDERED: Morphine 4 MG/ML VIAL ONE (17:17)
[2023-05-27] MEDS ORDERED: Dicyclomine 20 MG/2 ML VIAL ONE (17:17)
[2023-05-27 17:24] LABS: #Basophils 0.1 thou/uL (0.0-0.2); #Eosinphils 1.2 thou/uL (0.0-0.7); #Monocytes 0.9 thou/uL (0.11-0.59); #Neutrophils 12.3 thou/uL (1.40-6.50); %Basophils 0.9 % (0.0-1.0); %Eosinophils 7.3 % (0.0-10.0); %Lymphocytes 9.8 % (21.0-51.0); %Monocytes 5.4 % (0.0-10.0); %Neutrophils 75.6 % (42.0-75.0); Hematocrit 34.9 % (36.0-47.0); Hemoglobin 11.2 g/dL (12.0-16.0); Mean Corpuscular HGB CONC 32.1 g/dL (32.0-36.0); Mean Corpuscular Hemoglobin 30.8 pg (27.0-31.0); Mean Corpuscular Volume 95.9 fl (78.0-98.0); Mean Platelet Volume 8.9 fL (7.4-10.4); Platelet Count 289 10x3/uL (130-400); RBC Distribution Width 13.3 % (11.5-14.5); Red Blood Cell (RBC) Count 3.64 mill/uL (4.20-5.40); White Blood Cell (WBC) Count 16.3 10x3/uL (4.8-10.8)
[2023-05-27 17:48] LABS: ALT (SGPT) Less than 7 U/L (8-55); AST (SGOT) 12 U/L (5-34); Albumin 3.3 g/dL (3.4-4.8); Alkaline Phosphatase 82 U/L (40-110); Anion Gap 13 mmol/L (10-20); BUN (Urea Nitrogen) 48 mg/dL (9.8-20.1); Bilirubin, Total 0.4 mg/dL (0.2-1.2); Calc. Creatinine Clearance 0 mL/min (70-130); Calcium 8.8 mg/dL (7.8-10.44); Carbon Dioxide 22 mmol/L (23-31); Chloride 106 mmol/L (98-107); Estimated GFR 18; Globulin 2.9 g/dL (2.4-3.5); Glucose 84 mg/dL (80-115); Lipase 8 U/L (8-78); Potassium 3.6 mmol/L (3.5-5.1); Protein, Total 6.2 g/dL (5.8-8.1); Sodium 137 mmol/L (136-145)
[2023-05-27] MEDS ORDERED: Oxybutynin 5 MG TAB PO SCH (18:30)
[2023-05-27] MEDS ORDERED: fentaNYL 50 mcg/mL 1 mL Vial ONE (19:47)
== END 2023-05-27 21:30 | disposition home or self-care (01) ==
LOC: ERS 15:37
DX: N39.0 Urinary tract infection, site not specified (principal); K20.90 Esophagitis, unspecified without bleeding; K52.9 Noninfective gastroenteritis and colitis, unspecified; E11.9 Type 2 diabetes mellitus without complications; I10 Essential (primary) hypertension
CPT/HCPCS: 51702; 74176; 80053; 81001; 83605; 83690; 83880; 85025; 87077; 87086; 87186; 93005; 94760; 96361; 96372; 96374; 96375; J2270; J3010

== ENCOUNTER 2023-08-27 12:09 | Inpatient (IN) | payer OTHER, SELFPAY ==
[2023-08-27 13:13] LABS: Bacteria/HPF 3+ HPF (None Seen); Bilirubin Negative (Negative); Blood, Urine Negative (Negative); CAUTI Indications for Culture Dysuria,urgency,freq; Clarity Extra Turbid (Clear); Glucose, Urine (Dipstick) Normal (Negative); Ketone, Urine Negative (Negative); Leukocyte 500 Leu/uL (Negative); Nitrite Negative (Negative); Protein, Urine (Dipstick) 300 mg/dL (Neg-Trace); RBC/HPF None Seen HPF (0-3); Specific Gravity, Urine 1.011 (1.002-1.036); Squamous Epithelial None Seen HPF (0-3); Urobilinogen Normal mg/dL (Less than 2)
[2023-08-27 13:18] LABS: Triple Phosphate Crystal 1+ HPF (None Seen)
[2023-08-27 13:19] LABS: Urine Culture Reflex No No
[2023-08-27] MEDS ORDERED: fentaNYL 50 mcg/mL 1 mL Vial ONE ×2 (13:20→15:38)
[2023-08-27 13:27] LABS: #Basophils 0.1 thou/uL (0.0-0.2); #Eosinphils 0.6 thou/uL (0.0-0.7); #Monocytes 0.7 thou/uL (0.11-0.59); #Neutrophils 17.7 thou/uL (1.40-6.50); %Basophils 0.5 % (0.0-1.0); %Eosinophils 2.7 % (0.0-10.0); %Lymphocytes 7.7 % (21.0-51.0); %Monocytes 3.3 % (0.0-10.0); %Neutrophils 84.9 % (42.0-75.0); Hematocrit 39.9 % (36.0-47.0); Hemoglobin 12.6 g/dL (12.0-16.0); Mean Corpuscular HGB CONC 31.6 g/dL (32.0-36.0); Mean Corpuscular Hemoglobin 31.3 pg (27.0-31.0); Mean Corpuscular Volume 99.3 fl (78.0-98.0); Mean Platelet Volume 8.8 fL (7.4-10.4); Platelet Count 376 10x3/uL (130-400); RBC Distribution Width 13.1 % (11.5-14.5); Red Blood Cell (RBC) Count 4.02 mill/uL (4.20-5.40); White Blood Cell (WBC) Count 20.8 10x3/uL (4.8-10.8)
[2023-08-27 13:51] LABS: ALT (SGPT) 7 U/L (8-55); AST (SGOT) 13 U/L (5-34); Albumin 3.5 g/dL (3.4-4.8); Alkaline Phosphatase 102 U/L (40-110); Anion Gap 15 mmol/L (10-20); BUN (Urea Nitrogen) 49 mg/dL (9.8-20.1); Bilirubin, Total 0.6 mg/dL (0.2-1.2); Calc. Creatinine Clearance 0 mL/min (70-130); Calcium 9.3 mg/dL (7.8-10.44); Carbon Dioxide 24 mmol/L (23-31); Chloride 103 mmol/L (98-107); Estimated GFR 18; Globulin 3.4 g/dL (2.4-3.5); Glucose 109 mg/dL (80-115); Lipase 6 U/L (8-78); Potassium 4.8 mmol/L (3.5-5.1); Protein, Total 6.9 g/dL (5.8-8.1); Sodium 137 mmol/L (136-145)
[2023-08-27] MEDS ORDERED: cefTRIAXone (ROCEPHIN) 2 GM VIAL ONE (15:38)
[2023-08-27] MEDS ORDERED: Sodium Chloride 0.9% 100 ML ONE (15:38)
[2023-08-27] MEDS ORDERED: Vancomycin 1 GM/200 ML (FROZEN) BAG ONE (17:14)
[2023-08-27] MEDS ORDERED: Hyoscyamine SL 0.125 MG TAB SL PRN (17:21)
[2023-08-27] MEDS ORDERED: Calcium Carbonate 500 MG ChewTAB PO PRN (17:21)
[2023-08-27] MEDS ORDERED: Senokot S 8.6-50 MG TAB PO PRN (17:21)
[2023-08-27] MEDS ORDERED: Simethicone Chewable 80 MG TAB PO PRN (17:21)
[2023-08-27] MEDS ORDERED: Dextrose 5% in Water 1,000 ML IV PRN (17:54)
[2023-08-27] MEDS ORDERED: Glucagon 1 MG/ML KIT IM PRN (17:54)
[2023-08-27] MEDS ORDERED: Dextrose 50% Abboject 50 ML SYRINGE SLOW IVP PRN (17:54)
[2023-08-27] MEDS ORDERED: HumaLOG 300 UNITS/3 ML VIAL SC PRN ×2 (18:17)
[2023-08-27 18:27] VITALS: BMI 28.9
[2023-08-27] MEDS: Sodium Bicarbonate Tab 325 MG TAB PO SCH (20:30)
[2023-08-27] MEDS: Acetaminophen/Codeine 30-300mg Tablet PO SCH (20:31)
[2023-08-27] MEDS: Gabapentin 100 MG CAP PO SCH (20:31)
[2023-08-27] MEDS: hydrALAZINE 25 MG TAB PO SCH (20:32)
[2023-08-27] MEDS: Heparin 5,000 UNITS/ML VIAL SC SCH (20:33)
[2023-08-27] MEDS: cefTRIAXone\\ROCEPHIN 1 GM in Sodium Chloride 0.9% 100 ML IVPB SCH (21:35)
[2023-08-28] MEDS: Acetaminophen/Codeine 30-300mg Tablet PO SCH ×4 (01:31→17:03)
[2023-08-28 06:10] LABS: #Basophils 0.1 thou/uL (0.0-0.2); #Eosinphils 1.1 thou/uL (0.0-0.7); #Monocytes 0.8 thou/uL (0.11-0.59); #Neutrophils 15.6 thou/uL (1.40-6.50); %Basophils 0.7 % (0.0-1.0); %Eosinophils 5.6 % (0.0-10.0); %Lymphocytes 10.3 % (21.0-51.0); %Monocytes 4.1 % (0.0-10.0); %Neutrophils 78.3 % (42.0-75.0); Hematocrit 31.7 % (36.0-47.0); Mean Corpuscular HGB CONC 31.5 g/dL (32.0-36.0); Mean Corpuscular Hemoglobin 32.2 pg (27.0-31.0); Mean Corpuscular Volume 101.9 fl (78.0-98.0); Mean Platelet Volume 9.2 fL (7.4-10.4); RBC Distribution Width 13.3 % (11.5-14.5); Red Blood Cell (RBC) Count 3.11 mill/uL (4.20-5.40); White Blood Cell (WBC) Count 19.9 10x3/uL (4.8-10.8)
[2023-08-28 06:18] LABS: Platelet Count 273 10x3/uL (130-400)
[2023-08-28 06:31] LABS: Anion Gap 14 mmol/L (10-20); BUN (Urea Nitrogen) 47 mg/dL (9.8-20.1); Calc. Creatinine Clearance 25 mL/min (70-130); Calcium 8.5 mg/dL (7.8-10.44); Carbon Dioxide 20 mmol/L (23-31); Chloride 108 mmol/L (98-107); Estimated GFR 20; Glucose 83 mg/dL (80-115); Sodium 138 mmol/L (136-145)
[2023-08-28] MEDS: Sevelamer Carbonate 800 MG TAB PO SCH ×3 (09:05→17:06)
[2023-08-28] MEDS: Polyethylene Glycol 3350 17 GM Packet PO SCH (09:05)
[2023-08-28] MEDS: Gabapentin 100 MG CAP PO SCH ×3 (09:06→19:56)
[2023-08-28] MEDS: Sodium Bicarbonate Tab 325 MG TAB PO SCH ×2 (09:06→19:57)
[2023-08-28] MEDS: hydrALAZINE 25 MG TAB PO SCH ×3 (09:06→19:57)
[2023-08-28] MEDS: Cholecalciferol (Vitamin D3) 400 UNITS TAB PO SCH (09:07)
[2023-08-28] MEDS: Torsemide 20 MG TAB PO SCH (09:07)
[2023-08-28] MEDS: Escitalopram Oxalate 10 mg Tablet PO SCH (09:07)
[2023-08-28] MEDS: Ferrous Sulfate 325 MG TAB PO SCH ×2 (09:07→17:03)
[2023-08-28] MEDS: Heparin 5,000 UNITS/ML VIAL SC SCH ×3 (09:07→19:58)
[2023-08-28] MEDS: Acetaminophen 325 MG TAB PO PRN ×2 (09:16→19:57)
[2023-08-28] MEDS: cefTRIAXone\\ROCEPHIN 1 GM in Sodium Chloride 0.9% 100 ML IVPB SCH (17:02)
[2023-08-28] MEDS: Melatonin 3 MG TAB PO PRN (19:59)
[2023-08-29] MEDS: HYDROcodone/Acetaminophen 7.5/325 mg Tablet PO PRN ×3 (00:17→14:49)
[2023-08-29] MEDS: Acetaminophen/Codeine 30-300mg Tablet PO SCH ×5 (00:25→16:52)
[2023-08-29] MEDS: Heparin 5,000 UNITS/ML VIAL SC SCH ×3 (08:29→20:59)
[2023-08-29] MEDS: Ferrous Sulfate 325 MG TAB PO SCH ×2 (08:30→16:52)
[2023-08-29] MEDS: Torsemide 20 MG TAB PO SCH (08:30)
[2023-08-29] MEDS: Escitalopram Oxalate 10 mg Tablet PO SCH (08:30)
[2023-08-29] MEDS: Gabapentin 100 MG CAP PO SCH ×3 (08:30→20:58)
[2023-08-29] MEDS: Sodium Bicarbonate Tab 325 MG TAB PO SCH ×2 (08:31→20:58)
[2023-08-29] MEDS: Polyethylene Glycol 3350 17 GM Packet PO SCH (08:31)
[2023-08-29] MEDS: Cholecalciferol (Vitamin D3) 400 UNITS TAB PO SCH (08:31)
[2023-08-29] MEDS: Sevelamer Carbonate 800 MG TAB PO SCH ×3 (08:31→16:52)
[2023-08-29] MEDS: hydrALAZINE 25 MG TAB PO SCH ×3 (08:31→20:57)
[2023-08-29 11:18] LABS: #Basophils 0.1 thou/uL (0.0-0.2); #Eosinphils 0.6 thou/uL (0.0-0.7); #Monocytes 0.8 thou/uL (0.11-0.59); #Neutrophils 11.7 thou/uL (1.40-6.50); %Basophils 0.7 % (0.0-1.0); %Eosinophils 3.8 % (0.0-10.0); %Lymphocytes 11.5 % (21.0-51.0); %Monocytes 5.3 % (0.0-10.0); %Neutrophils 77.1 % (42.0-75.0); Hematocrit 33.1 % (36.0-47.0); Hemoglobin 10.4 g/dL (12.0-16.0); Mean Corpuscular HGB CONC 31.4 g/dL (32.0-36.0); Mean Corpuscular Hemoglobin 31.9 pg (27.0-31.0); Mean Corpuscular Volume 101.5 fl (78.0-98.0); Platelet Count 272 10x3/uL (130-400); RBC Distribution Width 13.1 % (11.5-14.5); Red Blood Cell (RBC) Count 3.26 mill/uL (4.20-5.40); White Blood Cell (WBC) Count 15.2 10x3/uL (4.8-10.8)
[2023-08-29 11:38] LABS: Anion Gap 15 mmol/L (10-20); BUN (Urea Nitrogen) 48 mg/dL (9.8-20.1); Calc. Creatinine Clearance 22 mL/min (70-130); Calcium 8.4 mg/dL (7.8-10.44); Carbon Dioxide 22 mmol/L (23-31); Chloride 108 mmol/L (98-107); Estimated GFR 17; Glucose 93 mg/dL (80-115); Sodium 141 mmol/L (136-145)
[2023-08-29] MEDS: Sodium Chloride 0.45% 1,000 ML IV SCH (13:44)
[2023-08-29] MEDS: cefTRIAXone\\ROCEPHIN 1 GM in Sodium Chloride 0.9% 100 ML IVPB SCH (16:53)
[2023-08-30] MEDS: Acetaminophen/Codeine 30-300mg Tablet PO SCH ×4 (01:04→17:54)
[2023-08-30] MEDS: Sodium Chloride 0.45% 1,000 ML IV SCH ×2 (01:06→12:08)
[2023-08-30 05:54] LABS: #Basophils 0.1 thou/uL (0.0-0.2); #Eosinphils 0.6 thou/uL (0.0-0.7); #Monocytes 0.7 thou/uL (0.11-0.59); %Basophils 0.9 % (0.0-1.0); %Eosinophils 4.9 % (0.0-10.0); %Lymphocytes 16.9 % (21.0-51.0); %Monocytes 5.3 % (0.0-10.0); %Neutrophils 70.4 % (42.0-75.0); Hematocrit 30.6 % (36.0-47.0); Hemoglobin 9.2 g/dL (12.0-16.0); Mean Corpuscular HGB CONC 30.1 g/dL (32.0-36.0); Mean Corpuscular Hemoglobin 31.3 pg (27.0-31.0); Mean Corpuscular Volume 104.1 fl (78.0-98.0); Mean Platelet Volume 9.3 fL (7.4-10.4); Platelet Count 272 10x3/uL (130-400); RBC Distribution Width 13.2 % (11.5-14.5); Red Blood Cell (RBC) Count 2.94 mill/uL (4.20-5.40); White Blood Cell (WBC) Count 12.8 10x3/uL (4.8-10.8)
[2023-08-30 06:11] LABS: Anion Gap 16 mmol/L (10-20); BUN (Urea Nitrogen) 43 mg/dL (9.8-20.1); Calc. Creatinine Clearance 24 mL/min (70-130); Calcium 8.1 mg/dL (7.8-10.44); Carbon Dioxide 20 mmol/L (23-31); Chloride 109 mmol/L (98-107); Estimated GFR 19; Glucose 80 mg/dL (80-115); Potassium 4.5 mmol/L (3.5-5.1); Sodium 140 mmol/L (136-145)
[2023-08-30] MEDS ORDERED: Sevelamer Carbonate 800 MG TAB PO SCH (08:00)
[2023-08-30] MEDS ORDERED: Gabapentin 100 MG CAP PO SCH (09:00)
[2023-08-30] MEDS: Sevelamer Carbonate 800 MG TAB PO SCH ×3 (09:23→17:53)
[2023-08-30] MEDS: Escitalopram Oxalate 10 mg Tablet PO SCH (09:23)
[2023-08-30] MEDS: Gabapentin 100 MG CAP PO SCH ×3 (09:23→21:05)
[2023-08-30] MEDS: Ferrous Sulfate 325 MG TAB PO SCH ×2 (09:23→17:53)
[2023-08-30] MEDS: Cholecalciferol (Vitamin D3) 400 UNITS TAB PO SCH (09:23)
[2023-08-30] MEDS: Torsemide 20 MG TAB PO SCH ×4 (09:24→21:06)
[2023-08-30] MEDS: Heparin 5,000 UNITS/ML VIAL SC SCH ×3 (09:24→21:16)
[2023-08-30] MEDS: Sodium Bicarbonate Tab 325 MG TAB PO SCH ×2 (09:24→21:07)
[2023-08-30] MEDS: hydrALAZINE 25 MG TAB PO SCH ×3 (09:25→21:03)
[2023-08-30] MEDS: Polyethylene Glycol 3350 17 GM Packet PO SCH (09:26)
[2023-08-30 14:32] LABS: Hemoglobin A1c 4.9 % (4.0-6.0)
[2023-08-30 14:35] LABS: ALT (SGPT) Less than 7 U/L (8-55); AST (SGOT) 16 U/L (5-34); Albumin 2.6 g/dL (3.4-4.8); Alkaline Phosphatase 83 U/L (40-110); Bilirubin, Direct 0.1 mg/dL (0.1-0.3); Bilirubin, Total 0.2 mg/dL (0.2-1.2); Lipase 21 U/L (8-78); Protein, Total 5.3 g/dL (5.8-8.1)
[2023-08-30] MEDS: Ondansetron PF 4 MG/2 ML Vial IVP PRN ×2 (17:53→23:16)
[2023-08-30] MEDS: cefTRIAXone\\ROCEPHIN 1 GM in Sodium Chloride 0.9% 100 ML IVPB SCH (17:54)
[2023-08-30] MEDS: HYDROcodone/Acetaminophen 7.5/325 mg Tablet PO PRN (21:08)
[2023-08-30] MEDS: Melatonin 3 MG TAB PO PRN (21:09)
[2023-08-30] MEDS: Pantoprazole 40 MG VIAL IVP SCH (21:16)
[2023-08-31] MEDS: Acetaminophen/Codeine 30-300mg Tablet PO SCH ×4 (01:52→17:11)
[2023-08-31 04:17] LABS: #Basophils 0.1 thou/uL (0.0-0.2); #Eosinphils 0.5 thou/uL (0.0-0.7); #Monocytes 0.6 thou/uL (0.11-0.59); #Neutrophils 7.5 thou/uL (1.40-6.50); %Basophils 0.7 % (0.0-1.0); %Eosinophils 4.9 % (0.0-10.0); %Lymphocytes 17.2 % (21.0-51.0); %Monocytes 5.2 % (0.0-10.0); %Neutrophils 69.9 % (42.0-75.0); Hematocrit 30.1 % (36.0-47.0); Hemoglobin 9.4 g/dL (12.0-16.0); Mean Corpuscular HGB CONC 31.2 g/dL (32.0-36.0); Mean Corpuscular Hemoglobin 31.8 pg (27.0-31.0); Mean Corpuscular Volume 101.7 fl (78.0-98.0); Mean Platelet Volume 9.4 fL (7.4-10.4); Platelet Count 255 10x3/uL (130-400); RBC Distribution Width 13.2 % (11.5-14.5); Red Blood Cell (RBC) Count 2.96 mill/uL (4.20-5.40); White Blood Cell (WBC) Count 10.7 10x3/uL (4.8-10.8)
[2023-08-31 04:41] LABS: ALT (SGPT) Less than 7 U/L (8-55); AST (SGOT) 12 U/L (5-34); Albumin 2.6 g/dL (3.4-4.8); Alkaline Phosphatase 78 U/L (40-110); Anion Gap 14 mmol/L (10-20); BUN (Urea Nitrogen) 39 mg/dL (9.8-20.1); Bilirubin, Total 0.2 mg/dL (0.2-1.2); Calc. Creatinine Clearance 23 mL/min (70-130); Calcium 8.1 mg/dL (7.8-10.44); Carbon Dioxide 20 mmol/L (23-31); Chloride 110 mmol/L (98-107); Estimated GFR 19; Globulin 2.7 g/dL (2.4-3.5); Glucose 87 mg/dL (80-115); Iron 95 ug/dL (50-170); Iron Binding Capacity, Total 130 mcg/dL (265-497); Potassium 4.2 mmol/L (3.5-5.1); Protein, Total 5.3 g/dL (5.8-8.1); Sodium 140 mmol/L (136-145)
[2023-08-31 04:43] LABS: Iron 94 ug/dL (50-170); Iron Binding Capacity, Total 130 mcg/dL (265-497); Magnesium 2.5 mg/dL (1.6-2.6)
[2023-08-31] MEDS ORDERED: Escitalopram Oxalate 10 mg Tablet PO SCH (09:00)
[2023-08-31] MEDS ORDERED: Bisacodyl 5 MG TAB PO PRN (09:37)
[2023-08-31] MEDS ORDERED: Bisacodyl 10 MG SUPP PR PRN (09:37)
[2023-08-31] MEDS: Polyethylene Glycol 3350 17 GM Packet PO SCH ×2 (09:57→20:35)
[2023-08-31] MEDS: hydrALAZINE 25 MG TAB PO SCH ×3 (09:58→20:37)
[2023-08-31] MEDS: Sodium Bicarbonate Tab 325 MG TAB PO SCH ×2 (09:58→20:36)
[2023-08-31] MEDS: Pantoprazole 40 MG VIAL IVP SCH ×2 (09:58→20:36)
[2023-08-31] MEDS: Ferrous Sulfate 325 MG TAB PO SCH ×2 (09:58→17:11)
[2023-08-31] MEDS: Heparin 5,000 UNITS/ML VIAL SC SCH ×4 (09:59→20:38)
[2023-08-31] MEDS: Gabapentin 100 MG CAP PO SCH ×3 (09:59→20:37)
[2023-08-31] MEDS: Cholecalciferol (Vitamin D3) 400 UNITS TAB PO SCH (09:59)
[2023-08-31] MEDS: Torsemide 20 MG TAB PO SCH ×2 (09:59→20:36)
[2023-08-31] MEDS: Sevelamer Carbonate 800 MG TAB PO SCH ×3 (09:59→17:13)
[2023-08-31] MEDS: Escitalopram Oxalate 10 mg Tablet PO SCH (09:59)
[2023-08-31] MEDS ORDERED: Sodium Chloride 0.9% 1,000 ML IV SCH (10:00)
[2023-08-31] MEDS ORDERED: Mineral Oil ENEMA PR SCH (12:00)
[2023-08-31 12:50] LABS: SARS-CoV-2 NAA Rapid Test Not Detected (NotDetected)
[2023-08-31] MEDS: cefTRIAXone\\ROCEPHIN 1 GM in Sodium Chloride 0.9% 100 ML IVPB SCH (17:13)
[2023-08-31] MEDS: diphenhydrAMINE 25 MG CAP PO PRN (17:21)
[2023-09-01] MEDS: Acetaminophen/Codeine 30-300mg Tablet PO SCH ×5 (00:41→23:54)
[2023-09-01 06:56] LABS: #Basophils 0.1 thou/uL (0.0-0.2); #Eosinphils 0.9 thou/uL (0.0-0.7); #Monocytes 0.7 thou/uL (0.11-0.59); #Neutrophils 6.7 thou/uL (1.40-6.50); %Basophils 0.9 % (0.0-1.0); %Eosinophils 8.3 % (0.0-10.0); %Lymphocytes 17.5 % (21.0-51.0); %Monocytes 6.4 % (0.0-10.0); %Neutrophils 62.6 % (42.0-75.0); Hematocrit 30.5 % (36.0-47.0); Hemoglobin 9.5 g/dL (12.0-16.0); Mean Corpuscular HGB CONC 31.1 g/dL (32.0-36.0); Mean Corpuscular Hemoglobin 31.9 pg (27.0-31.0); Mean Corpuscular Volume 102.3 fl (78.0-98.0); Mean Platelet Volume 9.2 fL (7.4-10.4); Platelet Count 249 10x3/uL (130-400); RBC Distribution Width 13.3 % (11.5-14.5); Red Blood Cell (RBC) Count 2.98 mill/uL (4.20-5.40); White Blood Cell (WBC) Count 10.7 10x3/uL (4.8-10.8)
[2023-09-01 07:21] LABS: ALT (SGPT) Less than 7 U/L (8-55); AST (SGOT) 10 U/L (5-34); Albumin 2.7 g/dL (3.4-4.8); Alkaline Phosphatase 76 U/L (40-110); Anion Gap 13 mmol/L (10-20); BUN (Urea Nitrogen) 41 mg/dL (9.8-20.1); Bilirubin, Total 0.2 mg/dL (0.2-1.2); Calc. Creatinine Clearance 23 mL/min (70-130); Carbon Dioxide 22 mmol/L (23-31); Chloride 112 mmol/L (98-107); Estimated GFR 19; Globulin 2.4 g/dL (2.4-3.5); Glucose 105 mg/dL (80-115); Magnesium 2.4 mg/dL (1.6-2.6); Potassium 3.9 mmol/L (3.5-5.1); Protein, Total 5.1 g/dL (5.8-8.1); Sodium 143 mmol/L (136-145)
[2023-09-01] MEDS: hydrALAZINE 25 MG TAB PO SCH ×3 (08:58→20:21)
[2023-09-01] MEDS: HYDROcodone/Acetaminophen 7.5/325 mg Tablet PO PRN (09:03)
[2023-09-01] MEDS: Cholecalciferol (Vitamin D3) 400 UNITS TAB PO SCH (09:46)
[2023-09-01] MEDS: Ferrous Sulfate 325 MG TAB PO SCH ×2 (09:46→17:04)
[2023-09-01] MEDS: Sevelamer Carbonate 800 MG TAB PO SCH ×3 (09:46→17:05)
[2023-09-01] MEDS: Gabapentin 100 MG CAP PO SCH ×3 (09:46→20:20)
[2023-09-01] MEDS: Escitalopram Oxalate 10 mg Tablet PO SCH (09:46)
[2023-09-01] MEDS: Heparin 5,000 UNITS/ML VIAL SC SCH ×3 (09:47→20:21)
[2023-09-01] MEDS: Pantoprazole 40 MG VIAL IVP SCH ×2 (09:47→20:20)
[2023-09-01] MEDS: Sodium Bicarbonate Tab 325 MG TAB PO SCH ×2 (09:47→20:21)
[2023-09-01] MEDS: Polyethylene Glycol 3350 17 GM Packet PO SCH ×2 (09:47→20:22)
[2023-09-01] MEDS: Torsemide 20 MG TAB PO SCH ×2 (09:47→20:21)
[2023-09-01 16:01] LABS: Reference Lab Name LABCORP
[2023-09-01] MEDS ORDERED: PHENYLEPHRINE-NS 100 MCG/ML 10 ML SYRINGE ONE ×3 (16:55→17:45)
[2023-09-01] MEDS ORDERED: Lidocaine 1% PF 5 ML VIAL ONE ×2 (16:55→17:04)
[2023-09-01] MEDS ORDERED: SUGAMMADEX SODIUM 200 MG/2 ML VIAL ONE (16:55)
[2023-09-01] MEDS ORDERED: Ondansetron PF 4 MG/2 ML Vial ONE ×2 (16:55→17:04)
[2023-09-01] MEDS ORDERED: ePHEDrine Sulfate 50 MG/10 ML VIAL ONE (16:55)
[2023-09-01] MEDS ORDERED: PROPOFOL 40 ML ONE (16:55)
[2023-09-01] MEDS ORDERED: fentaNYL PF 100 MCG/2 ML SYRINGE ONE (16:55)
[2023-09-01] MEDS ORDERED: Dexamethasone 4 mg/ml Vial ONE (16:55)
[2023-09-01] MEDS ORDERED: Rocuronium Bromide 10 MG/ML (10ML VIAL) ONE ×2 (16:55→17:04)
[2023-09-01] MEDS ORDERED: PROPOFOL 200 MG/20 ML VIAL ONE (17:04)
[2023-09-01] MEDS ORDERED: Dexamethasone 20 MG/5 ML VIAL ONE (17:04)
[2023-09-01] MEDS: cefTRIAXone\\ROCEPHIN 1 GM in Sodium Chloride 0.9% 100 ML IVPB SCH (18:43)
[2023-09-01] MEDS ORDERED: Benzocaine/Menthol 1 LOZ LOZ PO PRN (19:03)
[2023-09-02] MEDS: Acetaminophen/Codeine 30-300mg Tablet PO SCH ×3 (05:28→17:36)
[2023-09-02 06:09] LABS: #Basophils 0.1 thou/uL (0.0-0.2); #Monocytes 0.3 thou/uL (0.11-0.59); #Neutrophils 16.8 thou/uL (1.40-6.50); %Basophils 0.7 % (0.0-1.0); %Eosinophils 0.1 % (0.0-10.0); %Lymphocytes 6.6 % (21.0-51.0); %Monocytes 1.4 % (0.0-10.0); %Neutrophils 87.9 % (42.0-75.0); Hematocrit 36.5 % (36.0-47.0); Hemoglobin 11.3 g/dL (12.0-16.0); Mean Corpuscular Hemoglobin 31.7 pg (27.0-31.0); Mean Corpuscular Volume 102.2 fl (78.0-98.0); Mean Platelet Volume 9.3 fL (7.4-10.4); Platelet Count 274 10x3/uL (130-400); RBC Distribution Width 13.3 % (11.5-14.5); Red Blood Cell (RBC) Count 3.57 mill/uL (4.20-5.40); White Blood Cell (WBC) Count 19.2 10x3/uL (4.8-10.8)
[2023-09-02 06:43] LABS: ALT (SGPT) 9 U/L (8-55); AST (SGOT) 13 U/L (5-34); Albumin 3.1 g/dL (3.4-4.8); Alkaline Phosphatase 86 U/L (40-110); Anion Gap 15 mmol/L (10-20); BUN (Urea Nitrogen) 36 mg/dL (9.8-20.1); Bilirubin, Total 0.2 mg/dL (0.2-1.2); Calc. Creatinine Clearance 25 mL/min (70-130); Calcium 8.6 mg/dL (7.8-10.44); Carbon Dioxide 21 mmol/L (23-31); Chloride 107 mmol/L (98-107); Estimated GFR 21; Globulin 3.1 g/dL (2.4-3.5); Glucose 237 mg/dL (80-115); Magnesium 2.3 mg/dL (1.6-2.6); Potassium 4.4 mmol/L (3.5-5.1); Protein, Total 6.2 g/dL (5.8-8.1); Sodium 139 mmol/L (136-145)
[2023-09-02] MEDS: hydrALAZINE 25 MG TAB PO SCH ×3 (09:19→20:25)
[2023-09-02] MEDS: Sevelamer Carbonate 800 MG TAB PO SCH ×3 (09:19→17:37)
[2023-09-02] MEDS: HYDROcodone/Acetaminophen 7.5/325 mg Tablet PO PRN ×2 (09:19→20:24)
[2023-09-02] MEDS: Sodium Bicarbonate Tab 325 MG TAB PO SCH ×2 (09:20→20:26)
[2023-09-02] MEDS: Gabapentin 100 MG CAP PO SCH ×3 (09:20→20:26)
[2023-09-02] MEDS: Cholecalciferol (Vitamin D3) 400 UNITS TAB PO SCH (09:20)
[2023-09-02] MEDS: Escitalopram Oxalate 10 mg Tablet PO SCH (09:20)
[2023-09-02] MEDS: Ferrous Sulfate 325 MG TAB PO SCH ×2 (09:20→17:37)
[2023-09-02] MEDS: Pantoprazole 40 MG VIAL IVP SCH ×2 (09:21→20:27)
[2023-09-02] MEDS: Polyethylene Glycol 3350 17 GM Packet PO SCH ×2 (09:21→20:18)
[2023-09-02] MEDS: Torsemide 20 MG TAB PO SCH ×2 (09:21→20:26)
[2023-09-02] MEDS: Heparin 5,000 UNITS/ML VIAL SC SCH ×3 (09:21→20:27)
[2023-09-02] MEDS ORDERED: Mineral Oil ENEMA PR PRN (16:46)
[2023-09-02] MEDS: cefTRIAXone\\ROCEPHIN 1 GM in Sodium Chloride 0.9% 100 ML IVPB SCH (17:36)
[2023-09-02] MEDS: diphenhydrAMINE 25 MG CAP PO PRN (20:25)
[2023-09-02] MEDS: Senokot S 8.6-50 MG TAB PO SCH (20:25)
[2023-09-03] MEDS: Acetaminophen/Codeine 30-300mg Tablet PO SCH ×5 (01:49→23:48)
[2023-09-03 06:15] LABS: Manual Diff?? YES; Mean Corpuscular HGB CONC 31.3 g/dL (32.0-36.0); Mean Corpuscular Hemoglobin 31.5 pg (27.0-31.0); Mean Corpuscular Volume 100.9 fl (78.0-98.0); Mean Platelet Volume 9.7 fL (7.4-10.4); Platelet Count 275 10x3/uL (130-400); RBC Distribution Width 13.3 % (11.5-14.5); Red Blood Cell (RBC) Count 3.17 mill/uL (4.20-5.40); White Blood Cell (WBC) Count 17.3 10x3/uL (4.8-10.8)
[2023-09-03 06:43] LABS: ALT (SGPT) Less than 7 U/L (8-55); AST (SGOT) 11 U/L (5-34); Alkaline Phosphatase 80 U/L (40-110); Anion Gap 13 mmol/L (10-20); BUN (Urea Nitrogen) 36 mg/dL (9.8-20.1); Bilirubin, Total 0.2 mg/dL (0.2-1.2); Calc. Creatinine Clearance 27 mL/min (70-130); Calcium 8.6 mg/dL (7.8-10.44); Carbon Dioxide 25 mmol/L (23-31); Chloride 103 mmol/L (98-107); Estimated GFR 22; Globulin 2.7 g/dL (2.4-3.5); Glucose 116 mg/dL (80-115); Magnesium 2.5 mg/dL (1.6-2.6); Potassium 4.3 mmol/L (3.5-5.1); Protein, Total 5.7 g/dL (5.8-8.1); Sodium 137 mmol/L (136-145)
[2023-09-03 06:53] LABS: Delete Auto Diff?? YES
[2023-09-03 07:37] LABS: Band 3 % (5-11); CellaVision Operator ID LAB.GE; Eosinophils 4 % (0-10); Lymphocytes 11 % (21-51); Metamyelocyte 3 % (0-0); Monocytes 2 % (0-10); Myelocyte 1 % (0-0); Neutrophil 76 % (42-75); Platelet Adequacy Comment Platelets Normal; Polychromasia SLIGHT = 2-3 cells HPF (0-2); Reactive Lymphocytes 1 % (0-10); Total Cell Count 102
[2023-09-03] MEDS: Heparin 5,000 UNITS/ML VIAL SC SCH ×3 (10:00→20:34)
[2023-09-03] MEDS: Gabapentin 100 MG CAP PO SCH ×3 (10:00→20:31)
[2023-09-03] MEDS: Sevelamer Carbonate 800 MG TAB PO SCH ×3 (10:00→17:58)
[2023-09-03] MEDS: hydrALAZINE 25 MG TAB PO SCH ×3 (10:00→20:32)
[2023-09-03] MEDS: Ferrous Sulfate 325 MG TAB PO SCH ×2 (10:01→16:54)
[2023-09-03] MEDS: Senokot S 8.6-50 MG TAB PO SCH ×2 (14:05→20:33)
[2023-09-03] MEDS: Polyethylene Glycol 3350 17 GM Packet PO SCH ×2 (14:05→20:33)
[2023-09-03] MEDS: Sodium Bicarbonate Tab 325 MG TAB PO SCH ×2 (14:06→20:32)
[2023-09-03] MEDS: Pantoprazole 40 MG VIAL IVP SCH ×2 (14:06→20:33)
[2023-09-03] MEDS: Escitalopram Oxalate 10 mg Tablet PO SCH (14:07)
[2023-09-03] MEDS: Torsemide 20 MG TAB PO SCH ×2 (14:07→20:32)
[2023-09-03] MEDS: Cholecalciferol (Vitamin D3) 400 UNITS TAB PO SCH (14:07)
[2023-09-03] MEDS: cefTRIAXone\\ROCEPHIN 1 GM in Sodium Chloride 0.9% 100 ML IVPB SCH (17:59)
[2023-09-03] MEDS: HYDROcodone/Acetaminophen 7.5/325 mg Tablet PO PRN (20:30)
[2023-09-03] MEDS: diphenhydrAMINE 25 MG CAP PO PRN (20:32)
[2023-09-03] MEDS: Metoclopramide HCl 10 MG/2 ML VIAL IVP SCH (23:48)
[2023-09-04] MEDS: Acetaminophen/Codeine 30-300mg Tablet PO SCH ×3 (05:24→17:37)
[2023-09-04] MEDS: Metoclopramide HCl 10 MG/2 ML VIAL IVP SCH ×3 (05:24→21:29)
[2023-09-04 08:29] LABS: Hematocrit 31.3 % (36.0-47.0); Hemoglobin 9.7 g/dL (12.0-16.0); Manual Diff?? YES; Mean Corpuscular Hemoglobin 32.2 pg (27.0-31.0); Mean Platelet Volume 9.9 fL (7.4-10.4); Platelet Count 264 10x3/uL (130-400); RBC Distribution Width 13.5 % (11.5-14.5); Red Blood Cell (RBC) Count 3.01 mill/uL (4.20-5.40); White Blood Cell (WBC) Count 16.5 10x3/uL (4.8-10.8)
[2023-09-04 08:33] LABS: Delete Auto Diff?? YES
[2023-09-04] MEDS: Pantoprazole 40 MG VIAL IVP SCH ×2 (08:56→21:04)
[2023-09-04] MEDS: Polyethylene Glycol 3350 17 GM Packet PO SCH ×2 (08:56→21:00)
[2023-09-04] MEDS: Torsemide 20 MG TAB PO SCH ×2 (08:56→21:02)
[2023-09-04] MEDS: Sodium Bicarbonate Tab 325 MG TAB PO SCH ×2 (08:56→21:01)
[2023-09-04] MEDS: Sevelamer Carbonate 800 MG TAB PO SCH ×3 (08:56→17:37)
[2023-09-04] MEDS: Heparin 5,000 UNITS/ML VIAL SC SCH ×3 (08:56→21:04)
[2023-09-04] MEDS: Escitalopram Oxalate 10 mg Tablet PO SCH (08:57)
[2023-09-04] MEDS: Gabapentin 100 MG CAP PO SCH ×3 (08:57→21:02)
[2023-09-04] MEDS: Ferrous Sulfate 325 MG TAB PO SCH ×2 (08:57→17:37)
[2023-09-04] MEDS: Senokot S 8.6-50 MG TAB PO SCH ×2 (08:57→21:02)
[2023-09-04] MEDS: Cholecalciferol (Vitamin D3) 400 UNITS TAB PO SCH (08:57)
[2023-09-04] MEDS: hydrALAZINE 25 MG TAB PO SCH ×3 (08:57→21:02)
[2023-09-04 09:33] LABS: Albumin 2.7 g/dL (3.4-4.8)
[2023-09-04 09:34] LABS: Chloride 102 mmol/L (98-107); Sodium 133 mmol/L (136-145)
[2023-09-04 09:35] LABS: Glucose 90 mg/dL (80-115)
[2023-09-04 09:36] LABS: Globulin 2.5 g/dL (2.4-3.5); Protein, Total 5.2 g/dL (5.8-8.1)
[2023-09-04 09:36] LABS: Band 1 % (5-11); CellaVision Operator ID LAB.GE; Eosinophils 3 % (0-10); Lymphocytes 17 % (21-51); Macrocytosis SLIGHT = 6-15 cells HPF (0-5); Metamyelocyte 4 % (0-0); Monocytes 1 % (0-10); Myelocyte 4 % (0-0); Neutrophil 70 % (42-75); Platelet Adequacy Comment Platelets Normal; Polychromasia SLIGHT = 2-3 cells HPF (0-2); Total Cell Count 99
[2023-09-04 09:37] LABS: Anion Gap 12 mmol/L (10-20); Bilirubin, Total 0.2 mg/dL (0.2-1.2); Carbon Dioxide 25 mmol/L (23-31)
[2023-09-04 09:38] LABS: Alkaline Phosphatase 71 U/L (40-110)
[2023-09-04 09:39] LABS: BUN (Urea Nitrogen) 37 mg/dL (9.8-20.1); Calc. Creatinine Clearance 27 mL/min (70-130); Estimated GFR 22
[2023-09-04 09:40] LABS: AST (SGOT) 10 U/L (5-34)
[2023-09-04 09:41] LABS: ALT (SGPT) Less than 7 U/L (8-55); Magnesium 2.3 mg/dL (1.6-2.6)
[2023-09-04 09:46] LABS: Potassium 6.1 mmol/L (3.5-5.1)
[2023-09-04] MEDS ORDERED: Sodium Chloride 0.9% 500 ML IV SCH (10:00)
[2023-09-04 10:41] LABS: Bacteria/HPF None Seen HPF (None Seen); Bilirubin Negative (Negative); Blood, Urine Negative (Negative); Clarity Clear (Clear); Glucose, Urine (Dipstick) 100 mg/dL (Negative); Ketone, Urine Negative (Negative); Leukocyte Negative Leu/uL (Negative); Nitrite Negative (Negative); Protein, Urine (Dipstick) 30 mg/dL (Neg-Trace); RBC/HPF None Seen HPF (0-3); Squamous Epithelial None Seen HPF (0-3); Urobilinogen Normal mg/dL (Less than 2); WBC/HPF 0-3 HPF (0-3)
[2023-09-04 14:52] LABS: Potassium 6.2 mmol/L (3.5-5.1)
[2023-09-04] MEDS: cefTRIAXone\\ROCEPHIN 1 GM in Sodium Chloride 0.9% 100 ML IVPB SCH (17:37)
[2023-09-04] MEDS: diphenhydrAMINE 25 MG CAP PO PRN (21:03)
[2023-09-04] MEDS: HYDROcodone/Acetaminophen 7.5/325 mg Tablet PO PRN (21:03)
[2023-09-05] MEDS: Acetaminophen/Codeine 30-300mg Tablet PO SCH ×3 (05:57→12:38)
[2023-09-05 05:58] LABS: Hematocrit 34.3 % (36.0-47.0); Hemoglobin 10.7 g/dL (12.0-16.0); Manual Diff?? YES; Mean Corpuscular HGB CONC 31.2 g/dL (32.0-36.0); Mean Corpuscular Hemoglobin 32.4 pg (27.0-31.0); Mean Corpuscular Volume 103.9 fl (78.0-98.0); Mean Platelet Volume 9.2 fL (7.4-10.4); Platelet Count 281 10x3/uL (130-400); RBC Distribution Width 13.4 % (11.5-14.5); White Blood Cell (WBC) Count 16.1 10x3/uL (4.8-10.8)
[2023-09-05 06:12] LABS: Delete Auto Diff?? YES
[2023-09-05 06:18] LABS: Anion Gap 15 mmol/L (10-20); BUN (Urea Nitrogen) 34 mg/dL (9.8-20.1); Calc. Creatinine Clearance 28 mL/min (70-130); Calcium 8.5 mg/dL (7.8-10.44); Carbon Dioxide 21 mmol/L (23-31); Chloride 105 mmol/L (98-107); Estimated GFR 24; Glucose 81 mg/dL (80-115); Sodium 135 mmol/L (136-145)
[2023-09-05 06:34] LABS: Anisocytosis SLIGHT = 6-15 cells HPF (0-5); Band 3 % (5-11); CellaVision Operator ID LAB.CLH1; Eosinophils 9 % (0-10); Hypochromia SLIGHT = 6-15 cells HPF (0-5); Lymphocytes 18 % (21-51); Macrocytosis SLIGHT = 6-15 cells HPF (0-5); Metamyelocyte 7 % (0-0); Monocytes 6 % (0-10); Myelocyte 1 % (0-0); Neutrophil 57 % (42-75); Platelet Adequacy Comment Platelets Normal; Poikilocytosis SLIGHT = 6-15 cells HPF (0-5); Polychromasia SLIGHT = 2-3 cells HPF (0-2); Total Cell Count 104
[2023-09-05 07:38] VITALS: TEMP 98.1
[2023-09-05] MEDS ORDERED: Multivit, Chewable SF 1 TAB PO SCH (09:00)
[2023-09-05] MEDS: Polyethylene Glycol 3350 17 GM Packet PO SCH (09:36)
[2023-09-05] MEDS: Senokot S 8.6-50 MG TAB PO SCH (09:36)
[2023-09-05] MEDS: hydrALAZINE 25 MG TAB PO SCH (09:36)
[2023-09-05] MEDS: Sodium Bicarbonate Tab 325 MG TAB PO SCH (09:36)
[2023-09-05] MEDS: Cholecalciferol (Vitamin D3) 400 UNITS TAB PO SCH (09:37)
[2023-09-05] MEDS: Ferrous Sulfate 325 MG TAB PO SCH (09:37)
[2023-09-05] MEDS: Gabapentin 100 MG CAP PO SCH (09:37)
[2023-09-05] MEDS: Heparin 5,000 UNITS/ML VIAL SC SCH (09:37)
[2023-09-05] MEDS: Escitalopram Oxalate 10 mg Tablet PO SCH (09:37)
[2023-09-05] MEDS: Pantoprazole 40 MG VIAL IVP SCH (09:37)
[2023-09-05] MEDS: Torsemide 20 MG TAB PO SCH (09:38)
[2023-09-05] MEDS: Sevelamer Carbonate 800 MG TAB PO SCH ×2 (09:38→12:39)
[2023-09-05 11:34] VITALS: BP 122/71
== END 2023-09-05 16:23 | DRG 698 ==
LOC: ERS 12:09 → T4-A 16:47
PROVIDERS: ADMIT Internal Medicine; ATTEND Internal Medicine
PROC: 3E03329 Introduction of Other Anti-infective into Peripheral Vein, Percutaneous Approach (ICD-10-PCS; 2023-08-27)
PROC: 0DC38ZZ Extirpation of Matter from Lower Esophagus, Via Natural or Artificial Opening Endoscopic (ICD-10-PCS; principal; 2023-09-01)
DX: T83.511A Infection and inflammatory reaction due to indwelling urethral catheter, initial encounter (principal); A41.9 Sepsis, unspecified organism; N18.4 Chronic kidney disease, stage 4 (severe); G82.20 Paraplegia, unspecified; K56.7 Ileus, unspecified; N39.0 Urinary tract infection, site not specified; Z11.52 Encounter for screening for COVID-19; T18.128A Food in esophagus causing other injury, initial encounter; K52.89 Other specified noninfective gastroenteritis and colitis; Z88.2 Allergy status to sulfonamides; Z88.1 Allergy status to other antibiotic agents; Z79.899 Other long term (current) drug therapy; Z79.4 Long term (current) use of insulin; F41.9 Anxiety disorder, unspecified; F32.9 Major depressive disorder, single episode, unspecified; I12.9 Hypertensive chronic kidney disease with stage 1 through stage 4 chronic kidney disease, or unspecified chronic kidney disease; Z90.49 Acquired absence of other specified parts of digestive tract; Z90.710 Acquired absence of both cervix and uterus; Z98.890 Other specified postprocedural states; E11.22 Type 2 diabetes mellitus with diabetic chronic kidney disease; G89.4 Chronic pain syndrome; D63.1 Anemia in chronic kidney disease; Z79.01 Long term (current) use of anticoagulants; K20.90 Esophagitis, unspecified without bleeding; K59.09 Other constipation; E11.43 Type 2 diabetes mellitus with diabetic autonomic (poly)neuropathy; K31.84 Gastroparesis; K22.89 Other specified disease of esophagus; E87.5 Hyperkalemia
CPT/HCPCS: 36415; 36416; 51702; 70551; 71045; 71250; 74176; 74177; 74220; 78264; 80048; 80053; 80076; 81001; 82140; 82607; 82728; 83036; 83540; 83550; 83605; 83690; 83735; 85025; 85046; 86850; 86900; 86901; 87040; 87077; 87086; 96365; 96367; 96375; 96376; A9541; C9113; J0696; J1100; J1644; J2405; J2704; J2765; J3010; J3370-JW; J3490; J7030; J7050

== ENCOUNTER 2023-10-23 07:43 | Day surgery (SDC) | payer OTHER ==
[2023-10-23 08:54] LABS: #Basophils 0.1 thou/uL (0.0-0.2); #Eosinphils 1.3 thou/uL (0.0-0.7); #Monocytes 0.7 thou/uL (0.11-0.59); #Neutrophils 9.8 thou/uL (1.40-6.50); %Basophils 0.8 % (0.0-1.0); %Eosinophils 9.9 % (0.0-10.0); %Lymphocytes 10.5 % (21.0-51.0); %Monocytes 4.9 % (0.0-10.0); %Neutrophils 72.9 % (42.0-75.0); Hematocrit 35.3 % (36.0-47.0); Hemoglobin 11.5 g/dL (12.0-16.0); Mean Corpuscular HGB CONC 32.6 g/dL (32.0-36.0); Mean Corpuscular Hemoglobin 32.5 pg (27.0-31.0); Mean Corpuscular Volume 99.7 fl (78.0-98.0); Mean Platelet Volume 9.2 fL (7.4-10.4); Platelet Count 341 10x3/uL (130-400); RBC Distribution Width 12.9 % (11.5-14.5); Red Blood Cell (RBC) Count 3.54 mill/uL (4.20-5.40); White Blood Cell (WBC) Count 13.4 10x3/uL (4.8-10.8)
[2023-10-23 09:10] LABS: Prothrombin Time 12.6 sec (12.0-14.7)
[2023-10-23 09:11] LABS: PTT 32.7 sec (22.9-36.1)
[2023-10-23] MEDS ORDERED: fentaNYL 50 mcg/mL 1 mL Vial ONE ×2 (09:45→10:30)
[2023-10-23] MEDS ORDERED: Lidocaine 1% PF 5 ML VIAL ONE ×2 (09:45→10:30)
[2023-10-23] MEDS ORDERED: Midazolam HCl 2 mg/2 ml Vial ONE (09:45)
[2023-10-23] MEDS ORDERED: Sodium Bicarbonate 0.5 MEQ/ML SDV 10 ML ONE (09:45)
[2023-10-23] MEDS ORDERED: Lidocaine 2% 6 ML (Jelly) SYR ONE (10:16)
== END 2023-10-23 14:15 ==
LOC: CT 07:43
PROVIDERS: ATTEND Urology
PROC: 0T9B30Z Drainage of Bladder with Drainage Device, Percutaneous Approach (ICD-10-PCS; principal; 2023-10-23)
PROC: BT40ZZZ Ultrasonography of Bladder (ICD-10-PCS; principal; 2023-10-23)
DX: R33.9 Retention of urine, unspecified (principal); Z88.2 Allergy status to sulfonamides
CPT/HCPCS: 51102; 77002; 85025; 85610; 85730; J2250; J3010

== ENCOUNTER 2024-07-22 21:30 | Emergency (ER) | payer OTHER ==
[2024-07-22 23:33] LABS: Bilirubin Negative (Negative); Blood, Urine 1+ (Negative); CAUTI Indications for Culture Alt mental st,lethar; Clarity Clear (Clear); Glucose, Urine (Dipstick) 500 mg/dL (Negative); Ketone, Urine Negative (Negative); Leukocyte 250 Leu/uL (Negative); Nitrite Negative (Negative); Protein, Urine (Dipstick) 200 mg/dL (Neg-Trace); Specific Gravity, Urine 1.002 (1.002-1.036); Squamous Epithelial 0-3 HPF (0-3); Urobilinogen Normal mg/dL (Less than 2); WBC/HPF 21-50 HPF (0-3); pH, Urine 8.5 (5.0-9.0)
[2024-07-22 23:34] LABS: Bacteria/HPF 1+ HPF (None Seen)
[2024-07-22 23:35] LABS: Urine Culture Reflex Yes Yes
[2024-07-22 23:43] LABS: ALT (SGPT) 9 U/L (8-55); AST (SGOT) 17 U/L (5-34); Albumin 2.9 g/dL (3.4-4.8); Alkaline Phosphatase 101 U/L (40-110); Anion Gap 13 mmol/L (10-20); BUN (Urea Nitrogen) 35 mg/dL (9.8-20.1); Bilirubin, Total 0.4 mg/dL (0.2-1.2); Calc. Creatinine Clearance 0 mL/min (70-130); Calcium 8.6 mg/dL (7.8-10.44); Carbon Dioxide 23 mmol/L (23-31); Chloride 107 mmol/L (98-107); Estimated GFR 25; Globulin 3.5 g/dL (2.4-3.5); Glucose 114 mg/dL (80-115); Lipase 6 U/L (8-78); Potassium 4.2 mmol/L (3.5-5.1); Protein, Total 6.4 g/dL (5.8-8.1); Sodium 139 mmol/L (136-145)
[2024-07-22 23:46] LABS: Troponin I 0.014 ng/mL (< 0.028)
[2024-07-23] MEDS ORDERED: Sodium Chloride 0.9% 100 ML ONE (00:20)
[2024-07-23] MEDS ORDERED: cefTRIAXone (ROCEPHIN) 2 GM VIAL ONE (00:20)
== END 2024-07-23 02:33 | disposition home or self-care (01) ==
LOC: ERS 21:30
DX: N39.0 Urinary tract infection, site not specified (principal); E11.9 Type 2 diabetes mellitus without complications; I10 Essential (primary) hypertension; Z86.16 Personal history of COVID-19
CPT/HCPCS: 36416; 70450; 71045; 80053; 81001; 82140; 83605; 83690; 84484; 87040; 87077; 87086; 93005; 96374; J0696

== ENCOUNTER 2025-05-06 06:07 | Inpatient (IN) | payer MEDICAID ==
[2025-05-06 07:07] LABS: #Basophils 0.08 10x3/uL (0.0-0.2); #Eosinophils 0.55 10x3/uL (0.0-0.7); #Monocytes 0.59 10x3/uL (0.11-0.59); #Neutrophils 10.07 10x3/uL (1.40-6.50); %Basophils 0.6 % (0.0-1.0); %Eosinophils 4.3 % (0.0-10.0); %Lymphocytes 12.2 % (21.0-51.0); %Monocytes 4.6 % (0.0-10.0); %Neutrophils 77.8 % (42.0-75.0); Hematocrit 39.1 % (36.0-47.0); Hemoglobin 12.6 g/dL (12.0-16.0); Mean Corpuscular Hemoglobin 30.1 pg (27.0-31.0); Mean Corpuscular Volume 93.3 fL (78.0-98.0); Platelet Count 261 10x3/uL (130-400); Red Blood Cell (RBC) Count 4.19 mill/uL (4.20-5.40); White Blood Cell (WBC) Count 12.93 10x3/uL (4.8-10.8)
[2025-05-06 07:17] LABS: CAUTI Indications for Culture Alt mental st,lethar; Glucose, Urine (Dipstick) 70 mg/dL (Negative); Leukocyte 500 Leu/uL (Negative); Protein, Urine (Dipstick) 100 mg/dL (Neg-Trace); Specific Gravity, Urine 1.011 (1.002-1.036); WBC/HPF Greater than 50 HPF (0-3); Yeast-Budding 2+ HPF (None Seen); Yeast-Hyphae 1+ HPF (None Seen)
[2025-05-06 07:22] LABS: Bacteria/HPF 1+ HPF (None Seen)
[2025-05-06 07:23] LABS: Urine Culture Reflex Yes Yes
[2025-05-06 07:30] LABS: Troponin I 0.019 ng/mL (< 0.028)
[2025-05-06 07:32] LABS: ALT (SGPT) Less than 7 U/L (Less than 34); AST (SGOT) 14 U/L (11-34); Albumin 3.9 g/dL (3.1-4.5); Alkaline Phosphatase 101 U/L (40-110); Anion Gap 27 mmol/L (10-20); Bilirubin, Total 0.3 mg/dL (0.3-1.2); Calc. Creatinine Clearance 0 mL/min (70-130); Calcium 9.0 mg/dL (7.8-10.44); Carbon Dioxide 21 mmol/L (23-31); Chloride 91 mmol/L (98-107); Globulin 4.2 g/dL (2.4-3.5); Glucose 79 mg/dL (80-115); Lipase 21 U/L (8-78); Magnesium 3.9 mg/dL (1.6-2.6); Potassium 4.5 mmol/L (3.5-5.1); Sodium 134 mmol/L (136-145)
[2025-05-06 07:35] LABS: BUN (Urea Nitrogen) 112 mg/dL (9.8-20.1)
[2025-05-06] MEDS ORDERED: cefTRIAXone (ROCEPHIN) 2 GM VIAL ONE ×2 (08:03→08:29)
[2025-05-06] MEDS ORDERED: Acetaminophen 500 MG TAB ONE (08:29)
[2025-05-06 09:24] LABS: HBSAB Concentration Less than 8.00 mIU/mL; Hep B Core Total Ab NONREACTIVE (NonReactive); Hep B Surf Ag NONREACTIVE S/CO (NonReactive); Hep C IgG Ab NONREACTIVE S/CO (NonReactive); Hep C Index 0.21 S/CO (0-0.79)
[2025-05-06] MEDS ORDERED: Calcium Carbonate 500 MG ChewTAB PO PRN (09:46)
[2025-05-06] MEDS ORDERED: Senokot 8.6 MG TAB PO PRN (09:46)
[2025-05-06] MEDS ORDERED: Heparin 10,000 UNITS/ 10 ML VIAL ONE ×3 (10:07→13:58)
[2025-05-06 10:48] VITALS: BMI 27.3
[2025-05-06 10:48] LABS: Hep B Core Total Index 0.12 S/CO (0-0.79)
[2025-05-06] MEDS ORDERED: Iopamidol-370 76% 500 ML MDV (1 ML CHARGE) ONE (12:11)
[2025-05-06] MEDS ORDERED: Bisacodyl 10 MG SUPP PR PRN (12:25)
[2025-05-06] MEDS ORDERED: PROPOFOL 20 ML ONE (12:58)
[2025-05-06] MEDS ORDERED: Heparin 5,000 UNITS/ML VIAL ONE (13:11)
[2025-05-06] MEDS ORDERED: Rocuronium Bromide 10 MG/ML (10ML VIAL) ONE (13:47)
[2025-05-06] MEDS ORDERED: fentaNYL PF 100 MCG/2 ML SYRINGE ONE ×2 (13:50→17:30)
[2025-05-06] MEDS ORDERED: Bupivacaine 0.25% HCL 30 ML VIAL ONE (14:55)
[2025-05-06] MEDS ORDERED: SUGAMMADEX SODIUM 200 MG/2 ML VIAL ONE (17:11)
[2025-05-06] MEDS: Bisacodyl 10 MG SUPP PR SCH (17:12)
[2025-05-06] MEDS: Albumin 25% 25 GM (100 mL) BOT IVPB SCH (20:34)
[2025-05-06] MEDS: Sodium Bicarbonate Tab 325 MG TAB PO SCH (21:32)
[2025-05-06] MEDS: Carvedilol 6.25 MG TAB PO SCH (21:33)
[2025-05-06] MEDS: Losartan 25 MG TAB PO SCH (21:33)
[2025-05-07 05:38] LABS: ALT (SGPT) Less than 7 U/L (Less than 34); AST (SGOT) 18 U/L (11-34); Albumin 3.8 g/dL (3.1-4.5); Alkaline Phosphatase 75 U/L (40-110); Anion Gap 23 mmol/L (10-20); BUN (Urea Nitrogen) 60 mg/dL (9.8-20.1); Bilirubin, Total 0.3 mg/dL (0.3-1.2); Calc. Creatinine Clearance 14 mL/min (70-130); Calcium 8.6 mg/dL (7.8-10.44); Carbon Dioxide 21 mmol/L (23-31); Chloride 100 mmol/L (98-107); Globulin 3.3 g/dL (2.4-3.5); Glucose 106 mg/dL (80-115); Potassium 3.9 mmol/L (3.5-5.1); Sodium 140 mmol/L (136-145)
[2025-05-07] MEDS: cefTRIAXone\\ROCEPHIN 1 GM in Sodium Chloride 0.9% 100 ML IVPB SCH (09:40)
[2025-05-07] MEDS ORDERED: Heparin 10,000 UNITS/ 10 ML VIAL ONE (10:08)
[2025-05-07] MEDS ORDERED: Albumin 25% 25 GM (100 mL) BOT IVPB PRN (11:14)
[2025-05-07 11:41] LABS: Actual Bicarbonate (HCO3a) 19.9 mEq/L (22-28); Analyzer IN Cardio OR; Base Excess (BEa) -4.8 mEq/L (-2.0 to +3.0); CO2 Tension 35.4 mmHg (35.0-45.0); Calcium, Ionized (arterial) 1.35 mmol/L (1.12-1.30); Hematocrit-ABG 36 % (36.0-47.0); Hemoglobin (Hb) 12.4 g/dL (12.0-16.0); O2 Tension (PaO2), arterial 345.5 mmHg (> 80.0); Potassium - ABG Lab 3.53 mmol/L (3.70-5.30); pH, Arterial 7.367 (7.35-7.45)
[2025-05-07 11:42] LABS: ALV-art Gradient 323.250 mmHg (0-20); Puncture Site Right Radial artery
[2025-05-07] MEDS: Famotidine 20 MG TAB PO SCH (12:21)
[2025-05-07] MEDS: Mirabegron ER 25 MG ER.TAB PO SCH (12:21)
[2025-05-07] MEDS: Ondansetron PF 4 MG/2 ML Vial ONE (12:23)
[2025-05-07 12:49] LABS: Troponin I 0.073 ng/mL (< 0.028)
[2025-05-07 12:51] LABS: ALT (SGPT) Less than 7 U/L (Less than 34); AST (SGOT) 16 U/L (11-34); Albumin 4.0 g/dL (3.1-4.5); Alkaline Phosphatase 83 U/L (40-110); Anion Gap 20 mmol/L (10-20); BUN (Urea Nitrogen) 39 mg/dL (9.8-20.1); Bilirubin, Total 0.4 mg/dL (0.3-1.2); Calc. Creatinine Clearance 19 mL/min (70-130); Carbon Dioxide 18 mmol/L (23-31); Chloride 104 mmol/L (98-107); Globulin 3.3 g/dL (2.4-3.5); Glucose 168 mg/dL (80-115); Potassium 3.7 mmol/L (3.5-5.1); Sodium 138 mmol/L (136-145)
[2025-05-07 12:59] LABS: Hematocrit 37.8 % (36.0-47.0); Hemoglobin 11.6 g/dL (12.0-16.0); Mean Corpuscular Hemoglobin 29.9 pg (27.0-31.0); Mean Corpuscular Volume 97.4 fL (78.0-98.0); Platelet Count 216 10x3/uL (130-400); Red Blood Cell (RBC) Count 3.88 mill/uL (4.20-5.40); White Blood Cell (WBC) Count 29.58 10x3/uL (4.8-10.8)
[2025-05-07 13:06] LABS: Calcium 20.5 mg/dL (7.6-10.4)
[2025-05-07 13:27] LABS: Burr Cells SLIGHT = 2-5 cells HPF (0-1); Platelet Adequacy Comment Platelets Normal; Polychromasia SLIGHT = 2-3 cells HPF (0-2)
[2025-05-07] MEDS: HYDROcodone/Acetaminophen 7.5/325 mg Tablet PO PRN (19:59)
[2025-05-07] MEDS: Tuberculin PPD 0.1 ML SYRINGE (10 TEST VIAL) I-DERMAL SCH (21:48)
[2025-05-07] MEDS: diphenhydrAMINE 25 MG CAP PO SCH (22:25)
[2025-05-08 04:44] LABS: #Basophils 0.09 10x3/uL (0.0-0.2); #Eosinophils 0.25 10x3/uL (0.0-0.7); #Monocytes 0.92 10x3/uL (0.11-0.59); #Neutrophils 10.40 10x3/uL (1.40-6.50); %Basophils 0.7 % (0.0-1.0); %Eosinophils 1.9 % (0.0-10.0); %Lymphocytes 11.5 % (21.0-51.0); %Monocytes 6.9 % (0.0-10.0); %Neutrophils 78.2 % (42.0-75.0); Hematocrit 35.2 % (36.0-47.0); Hemoglobin 10.8 g/dL (12.0-16.0); Mean Corpuscular Hemoglobin 29.4 pg (27.0-31.0); Mean Corpuscular Volume 95.9 fL (78.0-98.0); Platelet Count 174 10x3/uL (130-400); Red Blood Cell (RBC) Count 3.67 mill/uL (4.20-5.40); White Blood Cell (WBC) Count 13.29 10x3/uL (4.8-10.8)
[2025-05-08 05:34] LABS: Anion Gap 18 mmol/L (10-20); BUN (Urea Nitrogen) 49 mg/dL (9.8-20.1); Calc. Creatinine Clearance 15 mL/min (70-130); Calcium 9.6 mg/dL (7.8-10.44); Carbon Dioxide 22 mmol/L (23-31); Chloride 99 mmol/L (98-107); Glucose 146 mg/dL (80-115); Potassium 3.8 mmol/L (3.5-5.1); Sodium 135 mmol/L (136-145)
[2025-05-08] MEDS ORDERED: Dicyclomine 10 MG CAP PO PRN (10:07)
[2025-05-08] MEDS ORDERED: Glucagon 1 MG/ML KIT IM PRN (12:05)
[2025-05-08] MEDS ORDERED: Dextrose 50% Abboject 50 ML SYRINGE SLOW IVP PRN (12:05)
[2025-05-08] MEDS: diphenhydrAMINE 25 MG CAP PO PRN (21:14)
[2025-05-09 06:09] LABS: #Basophils 0.13 10x3/uL (0.0-0.2); #Eosinophils 0.59 10x3/uL (0.0-0.7); #Monocytes 0.84 10x3/uL (0.11-0.59); #Neutrophils 9.78 10x3/uL (1.40-6.50); %Basophils 0.9 % (0.0-1.0); %Eosinophils 4.2 % (0.0-10.0); %Lymphocytes 17.3 % (21.0-51.0); %Monocytes 6.0 % (0.0-10.0); %Neutrophils 70.5 % (42.0-75.0); Hematocrit 34.5 % (36.0-47.0); Hemoglobin 10.8 g/dL (12.0-16.0); Mean Corpuscular Hemoglobin 30.1 pg (27.0-31.0); Mean Corpuscular Volume 96.1 fL (78.0-98.0); Platelet Count 158 10x3/uL (130-400); Red Blood Cell (RBC) Count 3.59 mill/uL (4.20-5.40); White Blood Cell (WBC) Count 13.89 10x3/uL (4.8-10.8)
[2025-05-09 06:22] LABS: Anion Gap 20 mmol/L (10-20); BUN (Urea Nitrogen) 58 mg/dL (9.8-20.1); Calc. Creatinine Clearance 12 mL/min (70-130); Calcium 8.5 mg/dL (7.8-10.44); Carbon Dioxide 23 mmol/L (23-31); Chloride 97 mmol/L (98-107); Glucose 135 mg/dL (80-115); Potassium 3.8 mmol/L (3.5-5.1); Sodium 136 mmol/L (136-145)
[2025-05-09] MEDS: Bacitracin Zinc Ointment 30 gm TUBE TOP SCH (06:49)
[2025-05-09] MEDS: Albumin 25% 25 GM (100 mL) BOT IVPB SCH (08:33)
[2025-05-09] MEDS: Ergocalciferol 1.25 MG(50,000 UNITS) CAP PO SCH (08:44)
[2025-05-09] MEDS: Mupirocin 1 GM TUBE NASAL DECOLONIZATION TP SCH (14:23)
[2025-05-09] MEDS: Mupirocin 1 GM TUBE NASAL DECOLOIZATION TP SCH (21:19)
[2025-05-10 04:50] LABS: Hematocrit 31.3 % (36.0-47.0); Hemoglobin 9.6 g/dL (12.0-16.0); Mean Corpuscular Hemoglobin 29.8 pg (27.0-31.0); Mean Corpuscular Volume 97.2 fL (78.0-98.0); Platelet Count 155 10x3/uL (130-400); Red Blood Cell (RBC) Count 3.22 mill/uL (4.20-5.40); White Blood Cell (WBC) Count 13.24 10x3/uL (4.8-10.8)
[2025-05-10 05:31] LABS: Anion Gap 19 mmol/L (10-20); BUN (Urea Nitrogen) 55 mg/dL (9.8-20.1); Calc. Creatinine Clearance 13 mL/min (70-130); Calcium 7.8 mg/dL (7.8-10.44); Carbon Dioxide 20 mmol/L (23-31); Chloride 101 mmol/L (98-107); Glucose 118 mg/dL (80-115); Potassium 3.5 mmol/L (3.5-5.1); Sodium 136 mmol/L (136-145)
[2025-05-10] MEDS ORDERED: Heparin 10,000 UNITS/ 10 ML VIAL ONE (09:31)
[2025-05-10] MEDS: Transdermal Patch Removal TOP SCH (09:44)
[2025-05-10] MEDS: Albumin 25% 25 GM (100 mL) BOT IVPB SCH (17:00)
[2025-05-10] MEDS: Clindamycin 150 MG CAP PO SCH (18:05)
[2025-05-10] MEDS: Carvedilol 6.25 MG TAB PO SCH (23:14)
[2025-05-11 05:28] LABS: Hematocrit 34.2 % (36.0-47.0); Hemoglobin 10.4 g/dL (12.0-16.0); Mean Corpuscular Hemoglobin 29.8 pg (27.0-31.0); Mean Corpuscular Volume 98.0 fL (78.0-98.0); Platelet Count 192 10x3/uL (130-400); Red Blood Cell (RBC) Count 3.49 mill/uL (4.20-5.40); White Blood Cell (WBC) Count 11.78 10x3/uL (4.8-10.8)
[2025-05-11 05:51] LABS: Anion Gap 19 mmol/L (10-20); BUN (Urea Nitrogen) 19 mg/dL (9.8-20.1); Calc. Creatinine Clearance 25 mL/min (70-130); Calcium 8.6 mg/dL (7.8-10.44); Carbon Dioxide 21 mmol/L (23-31); Chloride 102 mmol/L (98-107); Glucose 180 mg/dL (80-115); Potassium 4.0 mmol/L (3.5-5.1); Sodium 138 mmol/L (136-145)
[2025-05-11] MEDS: cefTRIAXone\\ROCEPHIN 1 GM in Sodium Chloride 0.9% 100 ML IVPB SCH (09:14)
[2025-05-11] MEDS: READ PPD TEST SITE PO SCH (14:24)
[2025-05-11] MEDS ORDERED: Bacitracin Zinc Ointment 30 gm TUBE ONE (18:11)
[2025-05-11] MEDS ORDERED: PROPOFOL 20 ML ONE (18:34)
[2025-05-11] MEDS ORDERED: Lidocaine 1% PF 5 ML VIAL ONE (18:34)
[2025-05-11] MEDS ORDERED: Ondansetron PF 4 MG/2 ML Vial ONE (18:34)
[2025-05-11] MEDS ORDERED: Thrombin 5000 UNITS/5 ML VIAL ONE (19:08)
[2025-05-11] MEDS ORDERED: hydrALAZINE 20 MG/ML VIAL ONE (20:21)
[2025-05-12] MEDS ORDERED: Albumin 25% 25 GM (100 mL) BOT IVPB PRN (09:14)
[2025-05-12] MEDS ORDERED: Heparin 10,000 UNITS/ 10 ML VIAL ONE (09:48)
[2025-05-12 15:48] LABS: ALT (SGPT) Less than 7 U/L (Less than 34); AST (SGOT) 13 U/L (11-34); Albumin 4.5 g/dL (3.1-4.5); Alkaline Phosphatase 65 U/L (40-110); Anion Gap 20 mmol/L (10-20); BUN (Urea Nitrogen) 10 mg/dL (9.8-20.1); Bilirubin, Total 0.3 mg/dL (0.3-1.2); Calc. Creatinine Clearance 38 mL/min (70-130); Calcium 8.7 mg/dL (7.8-10.44); Carbon Dioxide 23 mmol/L (23-31); Chloride 100 mmol/L (98-107); Globulin 2.7 g/dL (2.4-3.5); Glucose 114 mg/dL (80-115); Potassium 3.5 mmol/L (3.5-5.1); Sodium 139 mmol/L (136-145)
[2025-05-13 06:03] LABS: #Basophils 0.09 10x3/uL (0.0-0.2); #Eosinophils 0.61 10x3/uL (0.0-0.7); #Monocytes 0.86 10x3/uL (0.11-0.59); #Neutrophils 9.50 10x3/uL (1.40-6.50); %Basophils 0.7 % (0.0-1.0); %Eosinophils 4.7 % (0.0-10.0); %Lymphocytes 14.1 % (21.0-51.0); %Monocytes 6.6 % (0.0-10.0); %Neutrophils 72.8 % (42.0-75.0); Hematocrit 32.0 % (36.0-47.0); Hemoglobin 10.0 g/dL (12.0-16.0); Mean Corpuscular Hemoglobin 29.9 pg (27.0-31.0); Mean Corpuscular Volume 95.5 fL (78.0-98.0); Platelet Count 184 10x3/uL (130-400); Red Blood Cell (RBC) Count 3.35 mill/uL (4.20-5.40); White Blood Cell (WBC) Count 13.04 10x3/uL (4.8-10.8)
[2025-05-13 06:10] LABS: Anion Gap 22 mmol/L (10-20); BUN (Urea Nitrogen) 14 mg/dL (9.8-20.1); Calc. Creatinine Clearance 28 mL/min (70-130); Calcium 8.6 mg/dL (7.8-10.44); Carbon Dioxide 21 mmol/L (23-31); Chloride 101 mmol/L (98-107); Glucose 89 mg/dL (80-115); Potassium 3.4 mmol/L (3.5-5.1); Sodium 141 mmol/L (136-145)
[2025-05-14 05:42] LABS: #Basophils 0.11 10x3/uL (0.0-0.2); #Eosinophils 0.74 10x3/uL (0.0-0.7); #Monocytes 0.92 10x3/uL (0.11-0.59); #Neutrophils 9.26 10x3/uL (1.40-6.50); %Basophils 0.8 % (0.0-1.0); %Eosinophils 5.6 % (0.0-10.0); %Lymphocytes 16.0 % (21.0-51.0); %Monocytes 6.9 % (0.0-10.0); %Neutrophils 69.7 % (42.0-75.0); Hematocrit 33.0 % (36.0-47.0); Hemoglobin 10.0 g/dL (12.0-16.0); Mean Corpuscular Hemoglobin 29.3 pg (27.0-31.0); Mean Corpuscular Volume 96.8 fL (78.0-98.0); Platelet Count 218 10x3/uL (130-400); Red Blood Cell (RBC) Count 3.41 mill/uL (4.20-5.40); White Blood Cell (WBC) Count 13.29 10x3/uL (4.8-10.8)
[2025-05-14 16:04] VITALS: BP 138/80; TEMP 98.6
== END 2025-05-14 18:07 | disposition home or self-care (01) | DRG 673 ==
LOC: ERS 06:07 → T4-A 09:21 → OBSVTOIN 05-07 12:24 → CCU 05-07 13:00 → 2NO 05-07 17:05 → SURG A 05-11 20:53 → T4-B 05-11 20:54
PROVIDERS: ADMIT Internal Medicine; ATTEND Internal Medicine
PROC: 031C0JF Bypass Left Radial Artery to Lower Arm Vein with Synthetic Substitute, Open Approach (ICD-10-PCS; principal; 2025-05-06)
PROC: 0JH63XZ Insertion of Tunneled Vascular Access Device into Chest Subcutaneous Tissue and Fascia, Percutaneous Approach (ICD-10-PCS; 2025-05-06)
PROC: 05HM33Z Insertion of Infusion Device into Right Internal Jugular Vein, Percutaneous Approach (ICD-10-PCS; 2025-05-06)
PROC: B5131ZA Fluoroscopy of Right Jugular Veins using Low Osmolar Contrast, Guidance (ICD-10-PCS; 2025-05-06)
PROC: 5A1D70Z Performance of Urinary Filtration, Intermittent, Less than 6 Hours Per Day (ICD-10-PCS; 2025-05-07)
PROC: 3E03329 Introduction of Other Anti-infective into Peripheral Vein, Percutaneous Approach (ICD-10-PCS; 2025-05-07)
PROC: 3E04329 Introduction of Other Anti-infective into Central Vein, Percutaneous Approach (ICD-10-PCS; 2025-05-07)
PROC: 30233J1 Transfusion of Nonautologous Serum Albumin into Peripheral Vein, Percutaneous Approach (ICD-10-PCS; 2025-05-07)
PROC: 0T9B70Z Drainage of Bladder with Drainage Device, Via Natural or Artificial Opening (ICD-10-PCS; 2025-05-07)
PROC: 06HY33Z Insertion of Infusion Device into Lower Vein, Percutaneous Approach (ICD-10-PCS; 2025-05-10)
PROC: 0JBJ0ZZ Excision of Right Hand Subcutaneous Tissue and Fascia, Open Approach (ICD-10-PCS; 2025-05-12)
DX: N18.6 End stage renal disease (principal); G92.8 Other toxic encephalopathy; E87.21 Acute metabolic acidosis; G82.20 Paraplegia, unspecified; N39.0 Urinary tract infection, site not specified; Z16.24 Resistance to multiple antibiotics; G93.49 Other encephalopathy; E87.1 Hypo-osmolality and hyponatremia; N17.9 Acute kidney failure, unspecified; I12.0 Hypertensive chronic kidney disease with stage 5 chronic kidney disease or end stage renal disease; M54.9 Dorsalgia, unspecified; K58.9 Irritable bowel syndrome, unspecified; E11.22 Type 2 diabetes mellitus with diabetic chronic kidney disease; E11.21 Type 2 diabetes mellitus with diabetic nephropathy; E83.42 Hypomagnesemia; K59.09 Other constipation; E87.5 Hyperkalemia; M19.90 Unspecified osteoarthritis, unspecified site; N31.9 Neuromuscular dysfunction of bladder, unspecified; E88.09 Other disorders of plasma-protein metabolism, not elsewhere classified; E83.52 Hypercalcemia; I95.9 Hypotension, unspecified; I44.7 Left bundle-branch block, unspecified; T80.89XA Other complications following infusion, transfusion and therapeutic injection, initial encounter; T23.161A Burn of first degree of back of right hand, initial encounter; K52.89 Other specified noninfective gastroenteritis and colitis; F41.9 Anxiety disorder, unspecified; T40.2X5A Adverse effect of other opioids, initial encounter; D63.1 Anemia in chronic kidney disease; F32.A Depression, unspecified; Z99.2 Dependence on renal dialysis; Z87.440 Personal history of urinary (tract) infections; Z90.710 Acquired absence of both cervix and uterus; Z90.49 Acquired absence of other specified parts of digestive tract; Z98.890 Other specified postprocedural states; Z88.2 Allergy status to sulfonamides; Z88.8 Allergy status to other drugs, medicaments and biological substances; Z79.891 Long term (current) use of opiate analgesic
CPT/HCPCS: 36415; 36416; 36600; 70450; 71045; 74018; 74177; 80048; 80053; 81001; 82805; 83605; 83690; 83735; 83880; 84100; 84484; 85025; 85027; 86580; 86704; 86706; 86803; 87070; 87077; 87086; 87186; 87205; 87340; 88305; 93005; 93010; 96375; 96376; 97139; A6258; C1713; C1752; G0378; J0169; J0360; J0665; J0696; J1642; J1644; J2270; J2371; J2405; J2704; J3010; J3373; J7030; J7050; J7120; L8670; P9047; Q0162; Q4104; Q9967

== ENCOUNTER 2025-05-28 06:49 | Emergency (ER) | payer MEDICAID ==
[2025-05-28 08:48] LABS: #Basophils 0.09 10x3/uL (0.0-0.2); #Eosinophils 0.52 10x3/uL (0.0-0.7); #Monocytes 0.67 10x3/uL (0.11-0.59); #Neutrophils 8.46 10x3/uL (1.40-6.50); %Basophils 0.8 % (0.0-1.0); %Eosinophils 4.6 % (0.0-10.0); %Lymphocytes 11.6 % (21.0-51.0); %Monocytes 6.0 % (0.0-10.0); %Neutrophils 75.3 % (42.0-75.0); Hematocrit 29.2 % (36.0-47.0); Hemoglobin 9.1 g/dL (12.0-16.0); Mean Corpuscular Hemoglobin 29.6 pg (27.0-31.0); Mean Corpuscular Volume 95.1 fL (78.0-98.0); Platelet Count 188 10x3/uL (130-400); Red Blood Cell (RBC) Count 3.07 mill/uL (4.20-5.40); White Blood Cell (WBC) Count 11.23 10x3/uL (4.8-10.8)
[2025-05-28 09:06] LABS: Bacteria/HPF None Seen HPF (None Seen); CAUTI Indications for Culture Acute Hematuria; Glucose, Urine (Dipstick) 500 mg/dL (Negative); Leukocyte 500 Leu/uL (Negative); Protein, Urine (Dipstick) 100 mg/dL (Neg-Trace); Specific Gravity, Urine 1.010 (1.002-1.036); WBC/HPF Greater than 50 HPF (0-3); Yeast-Budding 2+ HPF (None Seen)
[2025-05-28 09:08] LABS: Urine Culture Reflex Yes Yes
[2025-05-28 09:16] LABS: ALT (SGPT) Less than 7 U/L (Less than 34); AST (SGOT) 16 U/L (11-34); Albumin 3.1 g/dL (3.1-4.5); Alkaline Phosphatase 124 U/L (40-110); Anion Gap 14 mmol/L (10-20); BUN (Urea Nitrogen) 26 mg/dL (9.8-20.1); Bilirubin, Total 0.3 mg/dL (0.3-1.2); Calc. Creatinine Clearance 0 mL/min (70-130); Calcium 8.8 mg/dL (7.8-10.44); Carbon Dioxide 27 mmol/L (23-31); Chloride 101 mmol/L (98-107); Globulin 3.3 g/dL (2.4-3.5); Glucose 216 mg/dL (80-115); Lipase 8 U/L (8-78); Potassium 3.9 mmol/L (3.5-5.1); Sodium 138 mmol/L (136-145)
[2025-05-28] MEDS ORDERED: Fluconazole 100 MG TAB ONE (09:46)
[2025-05-28] MEDS ORDERED: cefTRIAXone (ROCEPHIN) 1 GM VIAL ONE (09:47)
[2025-05-28] MEDS ORDERED: Fleet Saline Enema 133 ML BOT ONE (09:47)
== END 2025-05-28 11:49 ==
LOC: ERS 06:49
DX: K59.00 Constipation, unspecified (principal); I12.9 Hypertensive chronic kidney disease with stage 1 through stage 4 chronic kidney disease, or unspecified chronic kidney disease; E11.22 Type 2 diabetes mellitus with diabetic chronic kidney disease; N18.9 Chronic kidney disease, unspecified
CPT/HCPCS: 74176; 80053; 81001; 83690; 85025; 87086; 87186; 93005; 96365; 96375; J0696; J3010

== ENCOUNTER 2025-06-03 06:23 | Day surgery (SDC) | payer MEDICAID ==
[2025-06-02 14:49] VITALS: BMI 27.3
[2025-06-03] MEDS ORDERED: fentaNYL PF 100 MCG/2 ML SYRINGE ONE ×3 (07:42→10:41)
[2025-06-03] MEDS ORDERED: PROPOFOL 20 ML ONE (07:42)
[2025-06-03] MEDS ORDERED: Lidocaine 1% PF 5 ML VIAL ONE (07:43)
[2025-06-03] MEDS ORDERED: Thrombin 5000 UNITS/5 ML VIAL ONE (07:43)
[2025-06-03] MEDS ORDERED: Bacitracin Zinc Ointment 30 gm TUBE ONE (07:43)
[2025-06-03] MEDS ORDERED: Ondansetron PF 4 MG/2 ML Vial ONE (07:44)
[2025-06-03 08:07] LABS: #Basophils 0.12 10x3/uL (0.0-0.2); #Eosinophils 0.47 10x3/uL (0.0-0.7); #Monocytes 0.74 10x3/uL (0.11-0.59); #Neutrophils 7.20 10x3/uL (1.40-6.50); %Basophils 1.1 % (0.0-1.0); %Eosinophils 4.3 % (0.0-10.0); %Lymphocytes 19.1 % (21.0-51.0); %Monocytes 6.8 % (0.0-10.0); %Neutrophils 65.8 % (42.0-75.0); Hematocrit 29.1 % (36.0-47.0); Hemoglobin 9.1 g/dL (12.0-16.0); Mean Corpuscular Hemoglobin 29.6 pg (27.0-31.0); Mean Corpuscular Volume 94.8 fL (78.0-98.0); Platelet Count 199 10x3/uL (130-400); Red Blood Cell (RBC) Count 3.07 mill/uL (4.20-5.40); White Blood Cell (WBC) Count 10.94 10x3/uL (4.8-10.8)
[2025-06-03] MEDS ORDERED: Famotidine/PF 20 mg/2ml Vial ONE (08:19)
[2025-06-03 08:20] LABS: Anion Gap 14 mmol/L (10-20); BUN (Urea Nitrogen) 23 mg/dL (9.8-20.1); Calc. Creatinine Clearance 23 mL/min (70-130); Calcium 8.4 mg/dL (7.8-10.44); Carbon Dioxide 27 mmol/L (23-31); Chloride 98 mmol/L (98-107); Glucose 144 mg/dL (80-115); Potassium 4.0 mmol/L (3.5-5.1); Sodium 135 mmol/L (136-145)
[2025-06-03] MEDS ORDERED: CEFAZOLIN 2 GM VIAL ONE (08:25)
[2025-06-03] MEDS ORDERED: Ketamine In 0.9 % NaCl 50 MG/5 ML SYRINGE ONE (08:38)
[2025-06-03] MEDS ORDERED: Bupivacaine 0.25% HCL 30 ML VIAL ONE (08:43)
[2025-06-03] MEDS ORDERED: PHENYLEPHRINE-NS 100 MCG/ML 10 ML SYRINGE ONE (08:56)
[2025-06-03] MEDS ORDERED: diphenhydrAMINE 50 MG/ML VIAL ONE ×2 (10:03→11:00)
[2025-06-03] MEDS ORDERED: HYDROcodone/Acetaminophen 5/325 mg Tablet ONE (13:03)
== END 2025-06-03 14:38 ==
LOC: SDC 06:23
PROVIDERS: ATTEND Orthopaedic Surgery Hand Surgery
PROC: 0HRBX74 Replacement of Right Upper Arm Skin with Autologous Tissue Substitute, Partial Thickness, External Approach (ICD-10-PCS; principal; 2025-06-03)
DX: S61.401A Unspecified open wound of right hand, initial encounter (principal); T80.818A Extravasation of other vesicant agent, initial encounter; E11.9 Type 2 diabetes mellitus without complications; Z90.49 Acquired absence of other specified parts of digestive tract; Z90.710 Acquired absence of both cervix and uterus; Z88.2 Allergy status to sulfonamides; Y83.8 Other surgical procedures as the cause of abnormal reaction of the patient, or of later complication, without mention of misadventure at the time of the procedure
CPT/HCPCS: 80048; 85025; A6223; A6258; J0665; J1100; J1200; J1308; J1644; J2250; J2405; J2704; J3490

== ENCOUNTER 2025-07-23 17:19 | Inpatient (IN) | payer MEDICARE, MEDICAID ==
[2025-07-23 18:07] LABS: #Basophils 0.10 10x3/uL (0.0-0.2); #Eosinophils 0.49 10x3/uL (0.0-0.7); #Monocytes 0.65 10x3/uL (0.11-0.59); #Neutrophils 7.31 10x3/uL (1.40-6.50); %Basophils 0.9 % (0.0-1.0); %Eosinophils 4.5 % (0.0-10.0); %Lymphocytes 20.2 % (21.0-51.0); %Monocytes 5.9 % (0.0-10.0); %Neutrophils 66.4 % (42.0-75.0); Hematocrit 32.5 % (36.0-47.0); Hemoglobin 10.1 g/dL (12.0-16.0); Mean Corpuscular Hemoglobin 30.8 pg (27.0-31.0); Mean Corpuscular Volume 99.1 fL (78.0-98.0); Platelet Count 214 10x3/uL (130-400); Red Blood Cell (RBC) Count 3.28 mill/uL (4.20-5.40); White Blood Cell (WBC) Count 11.00 10x3/uL (4.8-10.8)
[2025-07-23 18:16] LABS: ALT (SGPT) 9 U/L (Less than 34); AST (SGOT) 26 U/L (11-34); Albumin 2.9 g/dL (3.1-4.5); Alkaline Phosphatase 150 U/L (40-110); Anion Gap 14 mmol/L (10-20); BUN (Urea Nitrogen) 15 mg/dL (9.8-20.1); Bilirubin, Total 0.2 mg/dL (0.3-1.2); Calc. Creatinine Clearance 0 mL/min (70-130); Calcium 8.3 mg/dL (7.8-10.44); Carbon Dioxide 29 mmol/L (23-31); Chloride 96 mmol/L (98-107); Globulin 3.3 g/dL (2.4-3.5); Glucose 248 mg/dL (80-115); Potassium 3.7 mmol/L (3.5-5.1); Sodium 135 mmol/L (136-145)
[2025-07-23 19:29] LABS: Bacteria/HPF 4+ HPF (None Seen); CAUTI Indications for Culture Pelvic or flank pain; Glucose, Urine (Dipstick) Normal (Negative); Leukocyte 500 Leu/uL (Negative); Protein, Urine (Dipstick) 100 mg/dL (Neg-Trace); RBC/HPF 0-3 HPF (0-3); Specific Gravity, Urine 1.009 (1.002-1.036); WBC/HPF Greater than 50 HPF (0-3)
[2025-07-23 19:34] LABS: Urine Culture Reflex Yes Yes
[2025-07-23] MEDS ORDERED: Ondansetron PF 4 MG/2 ML Vial IVP PRN (20:24)
[2025-07-23] MEDS: Ketorolac Tromethamine 30 MG (1 mL) VIAL IVP SCH (22:56)
[2025-07-23] MEDS: Pantoprazole 40 MG VIAL IVP SCH (22:56)
[2025-07-23] MEDS: Methocarbamol 0.5 GM in Sodium Chloride 0.9% 100 ML IVPB SCH (22:57)
[2025-07-23] MEDS: diphenhydrAMINE 12.5 MG/5 ML UDCUP PO SCH (22:57)
[2025-07-23] MEDS: Heparin 5,000 UNITS/ML VIAL SC SCH (22:57)
[2025-07-23 23:38] VITALS: BMI 30.7
[2025-07-23] MEDS ORDERED: Non-Formulary Item 1 EACH (Naloxone Hcl [Narcan] 4 MG Spray) L NARE PRN (23:45)
[2025-07-23] MEDS ORDERED: Senokot 8.6 MG TAB PO PRN (23:45)
[2025-07-23] MEDS ORDERED: Calcium Carbonate 500 MG ChewTAB PO PRN (23:45)
[2025-07-23] MEDS ORDERED: Simethicone Chewable 80 MG TAB PO PRN (23:45)
[2025-07-24] MEDS ORDERED: Glucagon 1 MG/ML KIT SC PRN (00:11)
[2025-07-24] MEDS: HYDROcodone/Acetaminophen 7.5/325 mg Tablet PO SCH (01:24)
[2025-07-24 06:37] LABS: #Basophils 0.08 10x3/uL (0.0-0.2); #Eosinophils 0.46 10x3/uL (0.0-0.7); #Monocytes 0.70 10x3/uL (0.11-0.59); #Neutrophils 5.77 10x3/uL (1.40-6.50); %Basophils 0.9 % (0.0-1.0); %Eosinophils 5.0 % (0.0-10.0); %Lymphocytes 22.1 % (21.0-51.0); %Monocytes 7.6 % (0.0-10.0); %Neutrophils 62.8 % (42.0-75.0); Hematocrit 31.2 % (36.0-47.0); Hemoglobin 9.3 g/dL (12.0-16.0); Mean Corpuscular Hemoglobin 30.2 pg (27.0-31.0); Mean Corpuscular Volume 101.3 fL (78.0-98.0); Platelet Count 168 10x3/uL (130-400); Red Blood Cell (RBC) Count 3.08 mill/uL (4.20-5.40); White Blood Cell (WBC) Count 9.19 10x3/uL (4.8-10.8)
[2025-07-24 07:02] LABS: ALT (SGPT) 11 U/L (Less than 34); AST (SGOT) 26 U/L (11-34); Albumin 2.7 g/dL (3.1-4.5); Alkaline Phosphatase 132 U/L (40-110); Anion Gap 18 mmol/L (10-20); BUN (Urea Nitrogen) 18 mg/dL (9.8-20.1); Bilirubin, Total 0.2 mg/dL (0.3-1.2); Calc. Creatinine Clearance 30 mL/min (70-130); Calcium 8.0 mg/dL (7.8-10.44); Carbon Dioxide 21 mmol/L (23-31); Chloride 101 mmol/L (98-107); Globulin 2.9 g/dL (2.4-3.5); Glucose 162 mg/dL (80-115); Potassium 3.6 mmol/L (3.5-5.1); Sodium 136 mmol/L (136-145)
[2025-07-24] MEDS: Cholecalciferol (Vitamin D3) 400 UNITS TAB PO SCH (08:36)
[2025-07-24] MEDS: Mirabegron ER 25 MG ER.TAB PO SCH (08:36)
[2025-07-24] MEDS: Folic Acid/Vit B Comp W-C PO SCH (08:36)
[2025-07-24] MEDS: Floranex 1 GM Packet PO SCH (08:36)
[2025-07-24] MEDS: Hyoscyamine SL 0.125 MG TAB PO SCH (08:37)
[2025-07-24] MEDS: Cyclobenzaprine 10 MG TAB PO PRN (08:51)
[2025-07-24] MEDS: Senokot 8.6 MG TAB PO SCH (09:43)
[2025-07-24] MEDS: EPOETIN ALFA-EPBX (ESRD) 10,000 UNITS/ML VIAL SC SCH (12:21)
[2025-07-24] MEDS: Bisacodyl 10 MG SUPP PR SCH (14:45)
[2025-07-24 15:33] VITALS: BMI 30.7
[2025-07-24] MEDS: HYDROcodone/Acetaminophen 7.5/325 mg Tablet PO PRN (16:04)
[2025-07-24] MEDS: Melatonin 3 MG TAB PO SCH (20:45)
[2025-07-24] MEDS: diphenhydrAMINE 25 MG CAP PO PRN (21:54)
[2025-07-24] MEDS: Transdermal Patch Removal TOP SCH (21:59)
[2025-07-25 03:27] LABS: #Basophils 0.07 10x3/uL (0.0-0.2); #Eosinophils 0.48 10x3/uL (0.0-0.7); #Monocytes 0.52 10x3/uL (0.11-0.59); #Neutrophils 6.70 10x3/uL (1.40-6.50); %Basophils 0.7 % (0.0-1.0); %Eosinophils 5.0 % (0.0-10.0); %Lymphocytes 18.1 % (21.0-51.0); %Monocytes 5.4 % (0.0-10.0); %Neutrophils 69.4 % (42.0-75.0); Hematocrit 27.1 % (36.0-47.0); Hemoglobin 8.4 g/dL (12.0-16.0); Mean Corpuscular Hemoglobin 30.9 pg (27.0-31.0); Mean Corpuscular Volume 99.6 fL (78.0-98.0); Platelet Count 174 10x3/uL (130-400); Red Blood Cell (RBC) Count 2.72 mill/uL (4.20-5.40); White Blood Cell (WBC) Count 9.66 10x3/uL (4.8-10.8)
[2025-07-25 03:46] LABS: Anion Gap 15 mmol/L (10-20); BUN (Urea Nitrogen) 22 mg/dL (9.8-20.1); Calc. Creatinine Clearance 27 mL/min (70-130); Calcium 8.1 mg/dL (7.8-10.44); Carbon Dioxide 23 mmol/L (23-31); Chloride 104 mmol/L (98-107); Glucose 126 mg/dL (80-115); Potassium 3.8 mmol/L (3.5-5.1); Sodium 138 mmol/L (136-145)
[2025-07-25] MEDS: HYDROcodone/Acetaminophen 7.5/325 mg Tablet PO PRN (08:42)
[2025-07-25] MEDS ORDERED: Ergocalciferol 1.25 MG(50,000 UNITS) CAP PO SCH (09:00)
[2025-07-25] MEDS: Carvedilol 6.25 MG TAB PO SCH ×2 (10:08→17:09)
[2025-07-25] MEDS: Ergocalciferol 1.25 MG(50,000 UNITS) CAP PO SCH (10:39)
[2025-07-25] MEDS: cefTRIAXone\\ROCEPHIN 1 GM in Sodium Chloride 0.9% 100 ML IVPB SCH (13:35)
[2025-07-25] MEDS ORDERED: Dextrose 50% Abboject 50 ML SYRINGE SLOW IVP PRN (16:17)
[2025-07-25] MEDS ORDERED: Glucagon 1 MG/ML KIT IM PRN (16:17)
[2025-07-26 10:00] LABS: #Basophils 0.06 10x3/uL (0.0-0.2); #Eosinophils 0.31 10x3/uL (0.0-0.7); #Monocytes 0.27 10x3/uL (0.11-0.59); #Neutrophils 5.86 10x3/uL (1.40-6.50); %Basophils 0.8 % (0.0-1.0); %Eosinophils 4.0 % (0.0-10.0); %Lymphocytes 13.8 % (21.0-51.0); %Monocytes 3.5 % (0.0-10.0); %Neutrophils 75.5 % (42.0-75.0); Hematocrit 27.7 % (36.0-47.0); Hemoglobin 8.7 g/dL (12.0-16.0); Mean Corpuscular Hemoglobin 31.2 pg (27.0-31.0); Mean Corpuscular Volume 99.3 fL (78.0-98.0); Platelet Count 138 10x3/uL (130-400); Red Blood Cell (RBC) Count 2.79 mill/uL (4.20-5.40); White Blood Cell (WBC) Count 7.76 10x3/uL (4.8-10.8)
[2025-07-26] MEDS: Acetaminophen 325 MG TAB PO PRN (10:46)
[2025-07-26] MEDS: Albumin 25% 25 GM (100 mL) BOT IVPB SCH (10:50)
[2025-07-26] MEDS: Heparin 10,000 UNITS/ 10 ML VIAL CATH SCH (13:10)
[2025-07-26] MEDS: Naloxegol 12.5 MG TAB PO SCH (14:15)
[2025-07-26 21:41] LABS: Glucose 158 mg/dL (80-115)
[2025-07-27 07:33] LABS: #Basophils 0.05 10x3/uL (0.0-0.2); #Eosinophils 0.49 10x3/uL (0.0-0.7); #Monocytes 0.46 10x3/uL (0.11-0.59); #Neutrophils 5.50 10x3/uL (1.40-6.50); %Basophils 0.6 % (0.0-1.0); %Eosinophils 5.9 % (0.0-10.0); %Lymphocytes 19.9 % (21.0-51.0); %Monocytes 5.5 % (0.0-10.0); %Neutrophils 66.3 % (42.0-75.0); Hematocrit 28.3 % (36.0-47.0); Hemoglobin 8.6 g/dL (12.0-16.0); Mean Corpuscular Hemoglobin 30.7 pg (27.0-31.0); Mean Corpuscular Volume 101.1 fL (78.0-98.0); Platelet Count 162 10x3/uL (130-400); Red Blood Cell (RBC) Count 2.80 mill/uL (4.20-5.40); White Blood Cell (WBC) Count 8.30 10x3/uL (4.8-10.8)
[2025-07-27 07:47] LABS: Glucose 119 mg/dL (80-115)
[2025-07-27 11:34] LABS: Glucose 139 mg/dL (80-115)
[2025-07-27] MEDS: Dicyclomine 10 MG CAP PO PRN (17:19)
[2025-07-28 08:13] LABS: #Basophils 0.07 10x3/uL (0.0-0.2); #Eosinophils 0.50 10x3/uL (0.0-0.7); #Monocytes 0.57 10x3/uL (0.11-0.59); #Neutrophils 5.85 10x3/uL (1.40-6.50); %Basophils 0.7 % (0.0-1.0); %Eosinophils 5.3 % (0.0-10.0); %Lymphocytes 23.5 % (21.0-51.0); %Monocytes 6.1 % (0.0-10.0); %Neutrophils 62.4 % (42.0-75.0); Hematocrit 30.5 % (36.0-47.0); Hemoglobin 9.3 g/dL (12.0-16.0); Mean Corpuscular Hemoglobin 30.7 pg (27.0-31.0); Mean Corpuscular Volume 100.7 fL (78.0-98.0); Platelet Count 190 10x3/uL (130-400); Red Blood Cell (RBC) Count 3.03 mill/uL (4.20-5.40); White Blood Cell (WBC) Count 9.38 10x3/uL (4.8-10.8)
[2025-07-28 12:19] LABS: ALT (SGPT) 10 U/L (Less than 34); AST (SGOT) 30 U/L (11-34); Albumin 3.1 g/dL (3.1-4.5); Alkaline Phosphatase 85 U/L (40-110); Anion Gap 14 mmol/L (10-20); BUN (Urea Nitrogen) 16 mg/dL (9.8-20.1); Bilirubin, Total 0.2 mg/dL (0.3-1.2); Calc. Creatinine Clearance 22 mL/min (70-130); Calcium 8.9 mg/dL (7.8-10.44); Carbon Dioxide 24 mmol/L (23-31); Chloride 105 mmol/L (98-107); Globulin 2.7 g/dL (2.4-3.5); Glucose 167 mg/dL (80-115); Potassium 4.5 mmol/L (3.5-5.1); Sodium 138 mmol/L (136-145)
[2025-07-29 05:24] LABS: #Basophils 0.09 10x3/uL (0.0-0.2); #Eosinophils 0.57 10x3/uL (0.0-0.7); #Monocytes 0.58 10x3/uL (0.11-0.59); #Neutrophils 7.36 10x3/uL (1.40-6.50); %Basophils 0.8 % (0.0-1.0); %Eosinophils 5.0 % (0.0-10.0); %Lymphocytes 22.8 % (21.0-51.0); %Monocytes 5.1 % (0.0-10.0); %Neutrophils 64.4 % (42.0-75.0); Hematocrit 28.6 % (36.0-47.0); Hemoglobin 8.9 g/dL (12.0-16.0); Mean Corpuscular Hemoglobin 31.0 pg (27.0-31.0); Mean Corpuscular Volume 99.7 fL (78.0-98.0); Platelet Count 211 10x3/uL (130-400); Red Blood Cell (RBC) Count 2.87 mill/uL (4.20-5.40); White Blood Cell (WBC) Count 11.42 10x3/uL (4.8-10.8)
[2025-07-29 05:47] LABS: Anion Gap 14 mmol/L (10-20); BUN (Urea Nitrogen) 8 mg/dL (9.8-20.1); Calc. Creatinine Clearance 40 mL/min (70-130); Calcium 8.6 mg/dL (7.8-10.44); Carbon Dioxide 28 mmol/L (23-31); Chloride 101 mmol/L (98-107); Glucose 110 mg/dL (80-115); Potassium 4.3 mmol/L (3.5-5.1); Sodium 139 mmol/L (136-145)
[2025-07-29] MEDS: Cephalexin 250 MG CAP PO SCH (09:52)
[2025-07-29] MEDS: diphenhydrAMINE 12.5 MG/5 ML UDCUP PO SCH (16:22)
[2025-07-30 10:20] LABS: #Basophils 0.09 10x3/uL (0.0-0.2); #Eosinophils 0.69 10x3/uL (0.0-0.7); #Monocytes 0.57 10x3/uL (0.11-0.59); #Neutrophils 6.77 10x3/uL (1.40-6.50); %Basophils 0.9 % (0.0-1.0); %Eosinophils 6.7 % (0.0-10.0); %Lymphocytes 19.2 % (21.0-51.0); %Monocytes 5.5 % (0.0-10.0); %Neutrophils 65.5 % (42.0-75.0); Hematocrit 30.6 % (36.0-47.0); Hemoglobin 9.3 g/dL (12.0-16.0); Mean Corpuscular Hemoglobin 31.1 pg (27.0-31.0); Mean Corpuscular Volume 102.3 fL (78.0-98.0); Platelet Count 237 10x3/uL (130-400); Red Blood Cell (RBC) Count 2.99 mill/uL (4.20-5.40); White Blood Cell (WBC) Count 10.33 10x3/uL (4.8-10.8)
[2025-07-30 10:36] LABS: CRP, High Sensitivity at Bryan 0.86 mg/dL (< or = 0.5)
[2025-07-30 10:53] LABS: ALT (SGPT) 8 U/L (Less than 34); AST (SGOT) 26 U/L (11-34); Albumin 3.0 g/dL (3.1-4.5); Anion Gap 14 mmol/L (10-20); BUN (Urea Nitrogen) 15 mg/dL (9.8-20.1); Bilirubin, Total 0.3 mg/dL (0.3-1.2); Calc. Creatinine Clearance 26 mL/min (70-130); Calcium 8.9 mg/dL (7.8-10.44); Carbon Dioxide 26 mmol/L (23-31); Chloride 104 mmol/L (98-107); Globulin 3.0 g/dL (2.4-3.5); Glucose 129 mg/dL (80-115); Magnesium 2.2 mg/dL (1.6-2.6); Potassium 4.5 mmol/L (3.5-5.1); Sodium 139 mmol/L (136-145)
[2025-07-30 11:03] LABS: Alkaline Phosphatase 88 U/L (40-110)
[2025-07-30] MEDS ORDERED: Albumin 25% 25 GM (100 mL) BOT IVPB PRN (13:03)
[2025-07-30] MEDS: diphenhydrAMINE 25 MG CAP PO SCH (20:31)
[2025-07-31] MEDS: diphenhydrAMINE 50 MG/ML VIAL IVP SCH ×2 (01:17→14:19)
[2025-07-31 04:54] LABS: #Basophils 0.10 10x3/uL (0.0-0.2); #Eosinophils 0.73 10x3/uL (0.0-0.7); #Monocytes 0.64 10x3/uL (0.11-0.59); #Neutrophils 7.68 10x3/uL (1.40-6.50); %Basophils 0.8 % (0.0-1.0); %Eosinophils 6.2 % (0.0-10.0); %Lymphocytes 20.6 % (21.0-51.0); %Monocytes 5.4 % (0.0-10.0); %Neutrophils 65.1 % (42.0-75.0); Hematocrit 29.0 % (36.0-47.0); Hemoglobin 9.1 g/dL (12.0-16.0); Mean Corpuscular Hemoglobin 31.5 pg (27.0-31.0); Mean Corpuscular Volume 100.3 fL (78.0-98.0); Platelet Count 181 10x3/uL (130-400); Red Blood Cell (RBC) Count 2.89 mill/uL (4.20-5.40); White Blood Cell (WBC) Count 11.82 10x3/uL (4.8-10.8)
[2025-07-31 05:18] LABS: ALT (SGPT) 10 U/L (Less than 34); AST (SGOT) 32 U/L (11-34); Albumin 2.8 g/dL (3.1-4.5); Alkaline Phosphatase 99 U/L (40-110); Anion Gap 14 mmol/L (10-20); BUN (Urea Nitrogen) 12 mg/dL (9.8-20.1); Bilirubin, Total 0.3 mg/dL (0.3-1.2); Calc. Creatinine Clearance 38 mL/min (70-130); Calcium 8.5 mg/dL (7.8-10.44); Carbon Dioxide 25 mmol/L (23-31); Chloride 102 mmol/L (98-107); Globulin 2.8 g/dL (2.4-3.5); Glucose 150 mg/dL (80-115); Magnesium 2.0 mg/dL (1.6-2.6); Potassium 4.4 mmol/L (3.5-5.1); Sodium 137 mmol/L (136-145)
[2025-07-31] MEDS: Methocarbamol 0.5 GM in Sodium Chloride 0.9% 100 ML IVPB PRN (17:59)
[2025-08-01] MEDS: HYDROcodone/Acetaminophen 7.5/325 mg Tablet PO SCH (02:32)
[2025-08-01] MEDS: diphenhydrAMINE 25 MG CAP PO SCH (02:58)
[2025-08-01 05:45] LABS: #Basophils 0.10 10x3/uL (0.0-0.2); #Eosinophils 0.73 10x3/uL (0.0-0.7); #Monocytes 0.66 10x3/uL (0.11-0.59); #Neutrophils 7.88 10x3/uL (1.40-6.50); %Basophils 0.8 % (0.0-1.0); %Eosinophils 6.0 % (0.0-10.0); %Lymphocytes 21.0 % (21.0-51.0); %Monocytes 5.4 % (0.0-10.0); %Neutrophils 64.8 % (42.0-75.0); Hematocrit 29.8 % (36.0-47.0); Hemoglobin 9.1 g/dL (12.0-16.0); Mean Corpuscular Hemoglobin 31.1 pg (27.0-31.0); Mean Corpuscular Volume 101.7 fL (78.0-98.0); Platelet Count 235 10x3/uL (130-400); Red Blood Cell (RBC) Count 2.93 mill/uL (4.20-5.40); White Blood Cell (WBC) Count 12.16 10x3/uL (4.8-10.8)
[2025-08-01] MEDS: diphenhydrAMINE 50 MG/ML VIAL IVP SCH (05:58)
[2025-08-01 08:04] VITALS: TEMP 97.8
[2025-08-01 10:04] LABS: ALT (SGPT) 10 U/L (Less than 34); AST (SGOT) 31 U/L (11-34); Albumin 3.0 g/dL (3.1-4.5); Alkaline Phosphatase 89 U/L (40-110); Anion Gap 18 mmol/L (10-20); BUN (Urea Nitrogen) 20 mg/dL (9.8-20.1); Bilirubin, Total 0.4 mg/dL (0.3-1.2); Calc. Creatinine Clearance 24 mL/min (70-130); Calcium 8.8 mg/dL (7.8-10.44); Carbon Dioxide 22 mmol/L (23-31); Chloride 102 mmol/L (98-107); Globulin 3.1 g/dL (2.4-3.5); Glucose 130 mg/dL (80-115); Magnesium 2.2 mg/dL (1.6-2.6); Potassium 4.8 mmol/L (3.5-5.1); Sodium 137 mmol/L (136-145)
[2025-08-01 11:37] LABS: #Basophils 0.10 10x3/uL (0.0-0.2); #Eosinophils 0.78 10x3/uL (0.0-0.7); #Monocytes 0.69 10x3/uL (0.11-0.59); #Neutrophils 9.45 10x3/uL (1.40-6.50); %Basophils 0.8 % (0.0-1.0); %Eosinophils 5.9 % (0.0-10.0); %Lymphocytes 15.7 % (21.0-51.0); %Monocytes 5.2 % (0.0-10.0); %Neutrophils 70.8 % (42.0-75.0); Hematocrit 31.0 % (36.0-47.0); Hemoglobin 9.4 g/dL (12.0-16.0); Mean Corpuscular Hemoglobin 30.6 pg (27.0-31.0); Mean Corpuscular Volume 101.0 fL (78.0-98.0); Platelet Count 248 10x3/uL (130-400); Red Blood Cell (RBC) Count 3.07 mill/uL (4.20-5.40); White Blood Cell (WBC) Count 13.32 10x3/uL (4.8-10.8)
[2025-08-01 12:46] VITALS: BP 148/72
[2025-08-01] MEDS: diphenhydrAMINE 25 MG CAP PO PRN (13:43)
[2025-08-01] MEDS: Transdermal Patch Removal TOP SCH (14:46)
== END 2025-08-01 16:55 | DRG 391 ==
LOC: ERS 17:19 → ERHOLD 20:24 → T4-A 21:38
PROVIDERS: ADMIT Internal Medicine; ATTEND Internal Medicine
PROC: 3E03329 Introduction of Other Anti-infective into Peripheral Vein, Percutaneous Approach (ICD-10-PCS; 2025-07-23)
PROC: 30233J1 Transfusion of Nonautologous Serum Albumin into Peripheral Vein, Percutaneous Approach (ICD-10-PCS; principal; 2025-07-24)
DX: K52.89 Other specified noninfective gastroenteritis and colitis (principal); N18.6 End stage renal disease; T83.511A Infection and inflammatory reaction due to indwelling urethral catheter, initial encounter; I12.0 Hypertensive chronic kidney disease with stage 5 chronic kidney disease or end stage renal disease; N39.0 Urinary tract infection, site not specified; Z16.24 Resistance to multiple antibiotics; R65.10 Systemic inflammatory response syndrome (SIRS) of non-infectious origin without acute organ dysfunction; E87.20 Acidosis, unspecified; E11.22 Type 2 diabetes mellitus with diabetic chronic kidney disease; M19.90 Unspecified osteoarthritis, unspecified site; L40.9 Psoriasis, unspecified; N31.9 Neuromuscular dysfunction of bladder, unspecified; K21.9 Gastro-esophageal reflux disease without esophagitis; F11.21 Opioid dependence, in remission; E78.5 Hyperlipidemia, unspecified; D63.1 Anemia in chronic kidney disease; K56.41 Fecal impaction; G47.00 Insomnia, unspecified; B96.20 Unspecified Escherichia coli [E. coli] as the cause of diseases classified elsewhere; F44.4 Conversion disorder with motor symptom or deficit; E11.21 Type 2 diabetes mellitus with diabetic nephropathy; B95.7 Other staphylococcus as the cause of diseases classified elsewhere; F32.A Depression, unspecified; F41.9 Anxiety disorder, unspecified; Z98.1 Arthrodesis status; Z88.8 Allergy status to other drugs, medicaments and biological substances; Z88.2 Allergy status to sulfonamides; Z88.1 Allergy status to other antibiotic agents; Z90.49 Acquired absence of other specified parts of digestive tract; Z98.890 Other specified postprocedural states; Z90.710 Acquired absence of both cervix and uterus; Z87.81 Personal history of (healed) traumatic fracture; Z83.3 Family history of diabetes mellitus; Z99.2 Dependence on renal dialysis; Z79.4 Long term (current) use of insulin; Z79.899 Other long term (current) drug therapy
CPT/HCPCS: 36415; 36416; 74176; 80048; 80053; 81001; 82550; 82947; 83605; 83735; 84145; 84484; 85025; 86141; 87040; 87077; 87086; 87149; 87186; 90935; 93005; 93306; 96374; 96375; 97139; G0257; J0692; J0696; J0878; J1200; J1644; J1815; J1885; J2270; J2272; J2470; J2543; J2800; P9047; Q0163; Q5105

== ENCOUNTER 2025-08-11 06:59 | Emergency (ER) | payer MEDICAID, MEDICARE ==
[2025-08-11] MEDS ORDERED: Acetaminophen 500 MG TAB ONE (07:35)
[2025-08-11] MEDS ORDERED: Ondansetron PF 4 MG/2 ML Vial ONE (07:35)
[2025-08-11 08:29] LABS: #Basophils 0.06 10x3/uL (0.0-0.2); #Eosinophils 0.13 10x3/uL (0.0-0.7); #Monocytes 0.64 10x3/uL (0.11-0.59); #Neutrophils 10.67 10x3/uL (1.40-6.50); %Basophils 0.5 % (0.0-1.0); %Eosinophils 1.0 % (0.0-10.0); %Lymphocytes 8.3 % (21.0-51.0); %Monocytes 5.1 % (0.0-10.0); %Neutrophils 84.7 % (42.0-75.0); Hematocrit 34.2 % (36.0-47.0); Hemoglobin 11.1 g/dL (12.0-16.0); Mean Corpuscular Hemoglobin 31.5 pg (27.0-31.0); Mean Corpuscular Volume 97.2 fL (78.0-98.0); Platelet Count 221 10x3/uL (130-400); Red Blood Cell (RBC) Count 3.52 mill/uL (4.20-5.40); White Blood Cell (WBC) Count 12.60 10x3/uL (4.8-10.8)
[2025-08-11 08:46] LABS: ALT (SGPT) 9 U/L (Less than 34); AST (SGOT) 18 U/L (11-34); Albumin 3.1 g/dL (3.1-4.5); Alkaline Phosphatase 116 U/L (40-110); Anion Gap 16 mmol/L (10-20); BUN (Urea Nitrogen) 32 mg/dL (9.8-20.1); Bilirubin, Total 0.4 mg/dL (0.3-1.2); Calc. Creatinine Clearance 0 mL/min (70-130); Calcium 8.7 mg/dL (7.8-10.44); Carbon Dioxide 25 mmol/L (23-31); Chloride 100 mmol/L (98-107); Globulin 3.1 g/dL (2.4-3.5); Glucose 201 mg/dL (80-115); Lipase 9 U/L (8-78); Potassium 3.6 mmol/L (3.5-5.1); Sodium 137 mmol/L (136-145)
[2025-08-11 09:28] LABS: Bacteria/HPF 4+ HPF (None Seen); CAUTI Indications for Culture Pelvic or flank pain; Glucose, Urine (Dipstick) 300 mg/dL (Negative); Leukocyte 500 Leu/uL (Negative); Protein, Urine (Dipstick) 300 mg/dL (Neg-Trace); Specific Gravity, Urine 1.016 (1.002-1.036); WBC/HPF Greater than 50 HPF (0-3); Yeast-Budding 3+ HPF (None Seen)
[2025-08-11 09:31] LABS: Urine Culture Reflex Yes Yes
[2025-08-11] MEDS ORDERED: Ciprofloxacin 500 MG TAB ONE (10:30)
== END 2025-08-11 12:00 | disposition home or self-care (01) ==
LOC: ERS 06:59
DX: N39.0 Urinary tract infection, site not specified (principal); K59.00 Constipation, unspecified; E11.9 Type 2 diabetes mellitus without complications; I10 Essential (primary) hypertension
CPT/HCPCS: 74176; 80053; 81001; 83690; 85025; 87086; 93005; 96374; 96375; J2405; J3010

== ENCOUNTER 2025-08-12 18:32 | Inpatient (IN) | payer MEDICARE, MEDICAID ==
[2025-08-12 19:32] LABS: #Basophils 0.05 10x3/uL (0.0-0.2); #Eosinophils 0.15 10x3/uL (0.0-0.7); #Monocytes 0.89 10x3/uL (0.11-0.59); #Neutrophils 11.98 10x3/uL (1.40-6.50); %Basophils 0.4 % (0.0-1.0); %Eosinophils 1.1 % (0.0-10.0); %Lymphocytes 7.9 % (21.0-51.0); %Monocytes 6.2 % (0.0-10.0); %Neutrophils 83.8 % (42.0-75.0); Hematocrit 36.9 % (36.0-47.0); Hemoglobin 11.4 g/dL (12.0-16.0); Mean Corpuscular Hemoglobin 30.7 pg (27.0-31.0); Mean Corpuscular Volume 99.5 fL (78.0-98.0); Platelet Count 250 10x3/uL (130-400); Red Blood Cell (RBC) Count 3.71 mill/uL (4.20-5.40); White Blood Cell (WBC) Count 14.28 10x3/uL (4.8-10.8)
[2025-08-12 19:55] LABS: ALT (SGPT) 9 U/L (Less than 34); AST (SGOT) 26 U/L (11-34); Albumin 3.2 g/dL (3.1-4.5); Alkaline Phosphatase 104 U/L (40-110); Anion Gap 19 mmol/L (10-20); BUN (Urea Nitrogen) 35 mg/dL (9.8-20.1); Bilirubin, Total 0.4 mg/dL (0.3-1.2); Calc. Creatinine Clearance 0 mL/min (70-130); Calcium 9.1 mg/dL (7.8-10.44); Carbon Dioxide 23 mmol/L (23-31); Chloride 100 mmol/L (98-107); Globulin 3.5 g/dL (2.4-3.5); Glucose 118 mg/dL (80-115); Lipase 9 U/L (8-78); Potassium 4.1 mmol/L (3.5-5.1); Sodium 138 mmol/L (136-145)
[2025-08-12 21:08] LABS: Bacteria/HPF None Seen HPF (None Seen); CAUTI Indications for Culture Acute Hematuria; RBC/HPF 21-50 HPF (0-3); WBC/HPF Greater than 50 HPF (0-3)
[2025-08-12 21:09] LABS: Urine Culture Reflex Yes Yes
[2025-08-12 21:16] LABS: Specific Gravity, Urine 1.017 (1.002-1.036)
[2025-08-12 21:17] LABS: Glucose, Urine (Dipstick) 300 mg/dL (Negative); Leukocyte 250 Leu/uL (Negative); Protein, Urine (Dipstick) 300 mg/dL (Neg-Trace)
[2025-08-12] MEDS ORDERED: cefTRIAXone (ROCEPHIN) 1 GM VIAL ONE (21:30)
[2025-08-13] MEDS ORDERED: Lidocaine 2% 6 ML (Jelly) SYR ONE (00:33)
[2025-08-13] MEDS ORDERED: Guaifenesin DM 100-10/5 ML UDCUP PO PRN (02:31)
[2025-08-13] MEDS ORDERED: Calcium Carbonate 500 MG ChewTAB PO PRN (02:31)
[2025-08-13] MEDS ORDERED: Bisacodyl 10 MG SUPP PR PRN (02:35)
[2025-08-13] MEDS ORDERED: Dextrose 50% Abboject 50 ML SYRINGE SLOW IVP PRN (02:41)
[2025-08-13] MEDS ORDERED: Glucagon 1 MG/ML KIT IM PRN (02:41)
[2025-08-13] MEDS ORDERED: Acetaminophen 500 MG TAB ONE (03:18)
[2025-08-13] MEDS ORDERED: Cyclobenzaprine 10 MG TAB ONE (03:18)
[2025-08-13] MEDS: Acetaminophen 500 MG TAB PO SCH (03:25)
[2025-08-13] MEDS: Cyclobenzaprine 10 MG TAB PO PRN (03:26)
[2025-08-13] MEDS ORDERED: diphenhydrAMINE 25 MG CAP ONE (04:10)
[2025-08-13] MEDS: Melatonin 3 MG TAB PO SCH (04:15)
[2025-08-13] MEDS: diphenhydrAMINE 25 MG CAP PO SCH (04:15)
[2025-08-13 04:22] VITALS: BMI 25.6
[2025-08-13] MEDS ORDERED: Divalproex Sodium 125 mg Sprinkle Capsule PO SCH (09:00)
[2025-08-13 09:50] LABS: #Basophils 0.05 10x3/uL (0.0-0.2); #Eosinophils 0.47 10x3/uL (0.0-0.7); #Monocytes 0.89 10x3/uL (0.11-0.59); #Neutrophils 8.83 10x3/uL (1.40-6.50); %Basophils 0.4 % (0.0-1.0); %Eosinophils 3.9 % (0.0-10.0); %Lymphocytes 13.5 % (21.0-51.0); %Monocytes 7.5 % (0.0-10.0); %Neutrophils 74.0 % (42.0-75.0); Hematocrit 34.8 % (36.0-47.0); Hemoglobin 10.9 g/dL (12.0-16.0); Mean Corpuscular Hemoglobin 31.3 pg (27.0-31.0); Mean Corpuscular Volume 100.0 fL (78.0-98.0); Platelet Count 156 10x3/uL (130-400); Red Blood Cell (RBC) Count 3.48 mill/uL (4.20-5.40); White Blood Cell (WBC) Count 11.93 10x3/uL (4.8-10.8)
[2025-08-13 10:05] LABS: Chloride 102 mmol/L (98-107); Potassium 4.4 mmol/L (3.5-5.1); Sodium 137 mmol/L (136-145)
[2025-08-13 10:06] LABS: Calcium 8.5 mg/dL (7.8-10.44); Glucose 102 mg/dL (80-115)
[2025-08-13 10:08] LABS: Anion Gap 19 mmol/L (10-20); Carbon Dioxide 20 mmol/L (23-31)
[2025-08-13 10:10] LABS: BUN (Urea Nitrogen) 36 mg/dL (9.8-20.1); Calc. Creatinine Clearance 19 mL/min (70-130)
[2025-08-13 10:19] LABS: HBSAB Concentration 202.31 mIU/mL; Hep B Core Total Ab NONREACTIVE (NonReactive); Hep B Core Total Index 0.10 S/CO (0-0.79); Hep B Surf Ag NONREACTIVE S/CO (NonReactive); Hep C IgG Ab NONREACTIVE S/CO (NonReactive); Hep C Index 0.19 S/CO (0-0.79)
[2025-08-13] MEDS: Ketorolac Tromethamine 30 MG (1 mL) VIAL IVP PRN (10:47)
[2025-08-13] MEDS: Lactulose 20 GM (30 mL) UDCUP PO SCH (10:48)
[2025-08-13] MEDS: Senokot S 8.6-50 MG TAB PO SCH (10:53)
[2025-08-13] MEDS: Heparin 5,000 UNITS/ML VIAL SC SCH (10:54)
[2025-08-13] MEDS: Carvedilol 6.25 MG TAB PO SCH (10:55)
[2025-08-13] MEDS: Ondansetron PF 4 MG/2 ML Vial IVP PRN (14:42)
[2025-08-13] MEDS: Heparin 10,000 UNITS/ 10 ML VIAL FS SCH (18:00)
[2025-08-13] MEDS: cefTRIAXone\\ROCEPHIN 1 GM in Sodium Chloride 0.9% 100 ML IVPB SCH (20:17)
[2025-08-13] MEDS: diphenhydrAMINE 50 MG/ML VIAL IVP PRN (20:17)
[2025-08-14] MEDS: Albumin 25% 25 GM (100 mL) BOT IVPB SCH (10:08)
[2025-08-14] MEDS: EPOETIN ALFA-EPBX (ESRD) 10,000 UNITS/ML VIAL SC SCH (12:58)
[2025-08-14] MEDS: Transdermal Patch Removal TOP SCH (20:32)
[2025-08-15 06:32] LABS: #Basophils 0.07 10x3/uL (0.0-0.2); #Eosinophils 0.85 10x3/uL (0.0-0.7); #Monocytes 0.82 10x3/uL (0.11-0.59); #Neutrophils 11.16 10x3/uL (1.40-6.50); %Basophils 0.5 % (0.0-1.0); %Eosinophils 6.1 % (0.0-10.0); %Lymphocytes 6.6 % (21.0-51.0); %Monocytes 5.9 % (0.0-10.0); %Neutrophils 80.2 % (42.0-75.0); Hematocrit 33.4 % (36.0-47.0); Hemoglobin 10.4 g/dL (12.0-16.0); Mean Corpuscular Hemoglobin 30.8 pg (27.0-31.0); Mean Corpuscular Volume 98.8 fL (78.0-98.0); Platelet Count 229 10x3/uL (130-400); Red Blood Cell (RBC) Count 3.38 mill/uL (4.20-5.40); White Blood Cell (WBC) Count 13.92 10x3/uL (4.8-10.8)
[2025-08-15 06:52] LABS: Anion Gap 16 mmol/L (10-20); BUN (Urea Nitrogen) 24 mg/dL (9.8-20.1); Calc. Creatinine Clearance 16 mL/min (70-130); Calcium 8.2 mg/dL (7.8-10.44); Carbon Dioxide 23 mmol/L (23-31); Chloride 102 mmol/L (98-107); Glucose 135 mg/dL (80-115); Potassium 3.3 mmol/L (3.5-5.1); Sodium 138 mmol/L (136-145)
[2025-08-15] MEDS: diphenhydrAMINE 50 MG/ML VIAL IVP SCH ×2 (11:16→16:10)
[2025-08-15] MEDS: Ketorolac Tromethamine 30 MG (1 mL) VIAL IVP SCH (11:16)
[2025-08-15] MEDS: Potassium Bicarbonate/Cit Ac 20 MEQ TAB PO SCH (11:49)
[2025-08-15] MEDS: Mupirocin 1 GM TUBE TP SCH (20:09)
[2025-08-16] MEDS: diphenhydrAMINE 25 MG CAP PO SCH (23:21)
[2025-08-17 00:02] VITALS: TEMP 98.1
[2025-08-17 05:49] LABS: #Basophils 0.08 10x3/uL (0.0-0.2); #Eosinophils 0.41 10x3/uL (0.0-0.7); #Monocytes 0.63 10x3/uL (0.11-0.59); #Neutrophils 6.24 10x3/uL (1.40-6.50); %Basophils 0.9 % (0.0-1.0); %Eosinophils 4.4 % (0.0-10.0); %Lymphocytes 20.3 % (21.0-51.0); %Monocytes 6.7 % (0.0-10.0); %Neutrophils 66.3 % (42.0-75.0); Hematocrit 35.6 % (36.0-47.0); Hemoglobin 10.8 g/dL (12.0-16.0); Mean Corpuscular Hemoglobin 31.0 pg (27.0-31.0); Mean Corpuscular Volume 102.3 fL (78.0-98.0); Platelet Count 219 10x3/uL (130-400); Red Blood Cell (RBC) Count 3.48 mill/uL (4.20-5.40); White Blood Cell (WBC) Count 9.40 10x3/uL (4.8-10.8)
[2025-08-17 06:13] LABS: Anion Gap 17 mmol/L (10-20); BUN (Urea Nitrogen) 19 mg/dL (9.8-20.1); Calc. Creatinine Clearance 22 mL/min (70-130); Calcium 8.0 mg/dL (7.8-10.44); Carbon Dioxide 23 mmol/L (23-31); Chloride 103 mmol/L (98-107); Glucose 158 mg/dL (80-115); Potassium 3.8 mmol/L (3.5-5.1); Sodium 139 mmol/L (136-145)
[2025-08-17 08:55] VITALS: BP 147/68
[2025-08-17] MEDS: diphenhydrAMINE 50 MG/ML VIAL IVP SCH (17:18)
== END 2025-08-17 20:30 | DRG 689 ==
LOC: ERS 18:32 → ERHOLD 08-13 00:25 → T4-A 08-13 07:57
PROVIDERS: ADMIT Internal Medicine; ATTEND Internal Medicine
DX: N39.0 Urinary tract infection, site not specified (principal); N18.6 End stage renal disease; I12.0 Hypertensive chronic kidney disease with stage 5 chronic kidney disease or end stage renal disease; E11.22 Type 2 diabetes mellitus with diabetic chronic kidney disease; G89.4 Chronic pain syndrome; E87.6 Hypokalemia; D63.1 Anemia in chronic kidney disease; K59.09 Other constipation; R07.89 Other chest pain; Z79.899 Other long term (current) drug therapy; Z99.2 Dependence on renal dialysis
CPT/HCPCS: 36415; 36416; 74176; 80048; 80053; 81001; 83690; 84100; 85025; 86704; 86706; 86803; 87086; 87340; 90935; 97139; G0257; J0290; J0696; J1200; J1644; J1815; J1885; J2060; J2250; J2270; J2272; J2405; P9047; Q0162; Q5105

== ENCOUNTER 2025-09-05 00:02 | Emergency (ER) | payer MEDICARE, MEDICAID ==
[2025-09-05] MEDS ORDERED: Ondansetron PF 4 MG/2 ML Vial ONE (00:55)
[2025-09-05 01:25] LABS: #Basophils 0.10 10x3/uL (0.0-0.2); #Eosinophils 0.52 10x3/uL (0.0-0.7); #Monocytes 0.82 10x3/uL (0.11-0.59); #Neutrophils 9.51 10x3/uL (1.40-6.50); %Basophils 0.8 % (0.0-1.0); %Eosinophils 4.0 % (0.0-10.0); %Lymphocytes 13.8 % (21.0-51.0); %Monocytes 6.4 % (0.0-10.0); %Neutrophils 73.8 % (42.0-75.0); Hematocrit 38.7 % (36.0-47.0); Hemoglobin 12.1 g/dL (12.0-16.0); Mean Corpuscular Hemoglobin 30.0 pg (27.0-31.0); Mean Corpuscular Volume 96.0 fL (78.0-98.0); Platelet Count 221 10x3/uL (130-400); Red Blood Cell (RBC) Count 4.03 mill/uL (4.20-5.40); White Blood Cell (WBC) Count 12.89 10x3/uL (4.8-10.8)
[2025-09-05 01:48] LABS: ALT (SGPT) 10 U/L (Less than 34); AST (SGOT) 28 U/L (11-34); Albumin 3.2 g/dL (3.1-4.5); Alkaline Phosphatase 112 U/L (40-110); Anion Gap 17 mmol/L (10-20); BUN (Urea Nitrogen) 30 mg/dL (9.8-20.1); Bilirubin, Total 0.3 mg/dL (0.3-1.2); Calc. Creatinine Clearance 0 mL/min (70-130); Calcium 8.8 mg/dL (7.8-10.44); Carbon Dioxide 27 mmol/L (23-31); Chloride 93 mmol/L (98-107); Globulin 3.3 g/dL (2.4-3.5); Glucose 170 mg/dL (80-115); Lipase 13 U/L (8-78); Potassium 4.1 mmol/L (3.5-5.1); Sodium 133 mmol/L (136-145)
[2025-09-05 03:13] LABS: Bacteria/HPF 3+ HPF (None Seen); RBC/HPF 21-50 HPF (0-3); WBC/HPF Greater than 50 HPF (0-3)
[2025-09-05 03:30] LABS: Specific Gravity, Urine 1.015 (1.005-1.030)
[2025-09-05 03:31] LABS: Glucose, Urine (Dipstick) Negative (Negative); Leukocyte Large Leu/uL (Negative); Protein, Urine (Dipstick) 100 mg/dL (Neg-Trace)
[2025-09-05 03:33] LABS: Urine Culture Reflex Yes Yes
[2025-09-05] MEDS ORDERED: cefTRIAXone (ROCEPHIN) 1 GM VIAL ONE (04:06)
== END 2025-09-05 05:27 | disposition home or self-care (01) ==
LOC: ERS 00:02
DX: M54.9 Dorsalgia, unspecified (principal); G89.29 Other chronic pain; K59.00 Constipation, unspecified; K52.89 Other specified noninfective gastroenteritis and colitis; N39.0 Urinary tract infection, site not specified; E11.22 Type 2 diabetes mellitus with diabetic chronic kidney disease; I12.9 Hypertensive chronic kidney disease with stage 1 through stage 4 chronic kidney disease, or unspecified chronic kidney disease; N18.9 Chronic kidney disease, unspecified
CPT/HCPCS: 74176; 80053; 81001; 83690; 85025; 87077; 87086; 87186; J0696; J2272; J2405; 96374; 96375; 96376